=== PATIENT | female | born 1980 | race Caucasian/White ===

== ENCOUNTER 2022-09-11 12:28 | Emergency (ER) | payer OTHER, SELFPAY ==
[2022-09-11] VITALS (36 sets, daily range): BP systolic 104–136; BP diastolic 70–86; PULSE 103–113; RESP 15–38; TEMP 35.7–37; O2SAT 80–100
--- NOTE | ~2022-09-11 | CT_ITS ---
EXAMINATION: CT brain wo con DATE: 09/11/2022 14:55 INDICATION: unresponsive, high blood sugar today . TECHNIQUE: Computed tomography (CT) of the head was performed without intravenous contrast. The mA wa s adjusted according to patient size. Iterative reconstruction technique was employed. The dose-lengt h product was 605.33 mGy-cm. COMPARISON: None. FINDINGS: Mild motion and beam hardening artifact. No acute intracranial hemorrhage or extra-axial fluid collection. No hydrocephalus, mass, or herniation. No acute ischemic infarct. Unremarkable dural venous sinus attenuation. No acute osseous abnormality. Multiple subcutaneous calcified nodules in the scalp. Left superior fro ntal scalp contusion with focal debris versus partially calcified nodule. Likely right occipital scal p contusion. The aerated spaces are clear. IMPRESSION: No acute intracranial process. Reviewed, dictated and finalized at location K.
--- NOTE | ~2022-09-11 | CT_ITS ---
EXAMINATION: CT cervical spine wo con DATE: 09/11/2022 14:55 INDICATION: fall, unresponsive today TECHNIQUE: Computed tomography (CT) of the cervical spine was performed without intravenous contrast. Automated exposure control and iterative reconstruction technique were employed. The dose-length pro duct was 460.32 mGy-cm. COMPARISON: None. FINDINGS: Vertebral Body Alignment: Intact. Mild straightening, which can occur with positioning or muscle spas m. Craniocervical and atlantoaxial alignment: Mild degenerative change. Alignment intact. Osseous structures/fracture: No evidence of a lytic or blastic process in the visualized spine. No e vidence of acute fracture. Unfused posterior C1 arch. Cervical soft tissues: The paraspinal soft tissues planes are maintained. Degenerative changes: Moderate degenerative disc disease at C5-6. No severe central canal or neural f oraminal narrowing. IMPRESSION: No acute fracture or traumatic malalignment in the cervical spine. Reviewed, dictated and finalized at location K.
--- NOTE | ~2022-09-11 | XR_ITS ---
EXAMINATION: XR chest 1V portable Exam Date/Time: 09/11/2022 14:45 CDT HISTORY: SOB, BLOOD SUGAR OVER 700 TODAY, UNRESPONSIVE Comparison: None. RESULT: Lines, tubes, and devices: None. Lungs and pleura: Low volumes with crowding. Streaky bibasilar atelectasis. Cardiomediastinal silhouette: Stable. Other: No acute osseous or upper abdominal finding. IMPRESSION: No acute cardiopulmonary process. Reviewed, dictated and finalized at location K.
--- NOTE | 2022-09-11 12:37 | ECG_ITS ---
Measurements Intervals [place] Rate: 113 P: 45 MD: 147 QRS: 28 QRSD: 104 T: 42 QT: 336 QTc: 461 Interpretive Statements SINUS TACHYCARDIA BASELINE ARTIFACT- I, II, III, AVR, AVL, AVF, V1, V4-V6 ABNORMAL ECG NO PREVIOUS ECG AVAILABLE FOR COMPARISON Electronically Signed On 09-11-2022 17:53:47 CDT by Seamus Crawley D.O.
--- NOTE | 2022-09-11 12:40 | ED.AMS ---
HPI - Altered Mental Status General Chief Complaint: Altered Mental Status Stated Complaint: ambulance Source: patient Mode of arrival: ambulatory Limitations: no limitations History of Present Illness HPI narrative: 42-year-old female with a history of obesity, gestational diabetes was brought into the ER by EMS for -- unresponsiveness since 11:00 a.m. -- Nausea with multiple episodes of vomiting since yesterday. -- High blood sugars complaint: altered mental status and decreased responsiveness Onset (ago): hour(s) ( noted unresponsive 2 hours ago) Timing confirmed by: spouse Severity: severe Related Data Allergies Allergy/AdvReac Type Severity Reaction Status Date / Time Penicillins Allergy Unknown Verified 04/29/16 14:48 Review of Systems Review of Systems: All systems reviewed & are unremarkable except as noted in HPI and below ROS unobtainable: Yes unobtainable due to mental status PMFSH Family History Family History Father Diabetes mellitus Social History Social History Smoking status: Never smoker Alcohol intake: current Exam Const: General: ill appearing Nutritional Appearance: obese Other: patient is unresponsive to verbal commands. She does respond to painful stimuli. She occasionally answers questions. HENMT: Head: normal to inspection Ears: external ears normal Face/Nose/Sinus: Normal external nose present Face and sinus: normal facial exam Mouth: Yes dry mucous membranes Throat: posterior oropharynx normal Eyes: Conjunctivae: conjunctivae normal Pupils: Equal, round and reactive pupils present EOM: EOMs intact bilaterally Neck: Neck: normal visual inspection, no lymphadenopathy and no meningeal signs Chest: Chest palpation & inspection: normal inspection of the chest Resp: Effort & Inspection: labored Auscultation: clear to auscultation bilaterally Cardio: Rate: tachycardic Rhythm: regular rhythm GI: GI Palp: Yes Soft to palpation Auscultation: normal bowel sounds Other: No tenderness/ rigidity / rebound : General: Yes no CVA tenderness Back/Spine/Pelvis: Back: no CVA tenderness Skin: General skin exam: normal color Rashes: no rashes Wounds: no wounds Neuro: General: patient oriented x3, moves all extremities, no meningeal signs, no focal motor deficits and CN's II-XI intact bilaterally Cranial nerves: Yes Nystagmus not present Speech: normal speech Extrem: General: normal to inspection and no clubbing, cyanosis or edema Psych: Other: patient is unresponsive to verbal commands. She response to painful stimuli. Course Course Emergency Course: unresponsiveness diabetic ketoacidosis Leukocytosis 3:00 p.m. patient has received 3 L of IV fluids. patient is on IV insulin drip. She received IV bicarbonate Mental status has improved. The patient is arousable and follows verbal commands. 4:00 p.m. patient is hemodynamically stable. She is alert and oriented. Blood sugars are down to 447. WBCs noted to be 27.4. Lactate is noted to be 0.7. The patient has been cultured. negative UA Vital Signs Vital signs: Vital Signs Temperature 35.7 C L 09/11/22 12:28 Pulse Rate 113 H 09/11/22 12:28 Respiratory Rate 35 H 09/11/22 12:28 Blood Pressure 125/76 09/11/22 12:28 Pulse Oximetry 100 09/11/22 12:28 Oxygen Delivery Nasal Cannula 09/11/22 12:28 Oxygen Flow Rate 2 09/11/22 12:28 Temperature 37.0 C 09/11/22 13:15 Pulse Rate 104 H 09/11/22 15:16 Respiratory Rate 30 H 09/11/22 15:16 Blood Pressure 132/77 09/11/22 15:16 Pulse Oximetry 100 09/11/22 15:16 Oxygen Delivery Nasal Cannula 09/11/22 12:28 Oxygen Flow Rate 2 09/11/22 12:28 MDM - Altered Mental Status MDM Narrative Medical decision making narrative: Diabetic ketoacidosis acute renal failure unresponsive
[2022-09-11] MEDS: SODIUM CHLORIDE 0.9% IV 1,000 ML 999 ML IV CONT ×4 (12:44→13:54)
[2022-09-11] MEDS: INSULIN HUMAN REGULAR (*BKC) 1,000 UNITS/10 ML VIAL 10 UNITS IV PUSH ×3 (12:45→17:06)
--- NOTE | 2022-09-11 12:48 | PC.NURSE ---
FINGER STICK GREATER THAN 500, DR VELA NOTIFIED.
[2022-09-11 13:02] LABS: Hematocrit 33.4 % (35.0-49.0); Hemoglobin 10.3 g/dL (12.0-15.0); Immature Platelet Fraction Pct 0.7 % (1.0-7.0); Mean Corpuscular HGB Conc 30.8 g/dL (32.0-36.0); Mean Corpuscular Hemoglobin 28.2 pg (27.0-31.0); Mean Corpuscular Volume 91.5 fL (78.0-102.0); Mean Platelet Volume 9.5 fl (9.2-11.8); Platelet Count Result 683 K/mm3 (150-420); Red Blood Count 3.65 M/mm3 (4.20-5.40); Red Cell Distribution Width 13.2 % (11.6-14.4)
[2022-09-11 13:03] LABS: Base Excess ABG -28.2 mmol/L (0-2); HCO3 ABG 2.5 mmol/L (23-29); Oxygen Content ABG 15.9 %vol (16.0-22.0); Oxygen Saturation ABG 97.9 % (95-97); Oxyhemoglobin 97.2 % (94-100); PO2 ABG 149.8 mmHg (80-90); Total Hemoglobin 11.4 g/dL (12.0-18.0)
[2022-09-11 13:08] LABS: pH ABG 6.93 (7.35-7.45)
[2022-09-11 13:09] LABS: Device NASAL CANNULA; Modified Allen's Test Pass; Site Drawn LEFT RADIAL
[2022-09-11 13:10] LABS: White Blood Count 27.4 K/mm3 (4.8-10.8)
[2022-09-11 13:16] LABS: Partial Thromboplastin Time 30.8 SEC (23.90-30.70); Prothrombin Time 10.9 Seconds (9.50-12.10); SPREG INTERNAL CONTROL Positive; Serum Qual hCG Negative
[2022-09-11 13:19] LABS: Lactic Acid Reflex 0.7 mmol/L (0.4-2.0)
[2022-09-11 13:25] LABS: Alanine Aminotransferase 11 U/L (14-59); Albumin Level 1.6 g/dL (3.4-5.0); Alkaline Phosphatase 135 U/L (46-116); Aspartate Amino Transferase < 10 U/L (15-37); Bilirubin,Total 0.4 mg/dL (0.00-1.00); Blood Urea Nitrogen 37 mg/dL (7-18); Calcium 9.8 mg/dL (8.5-10.1); Chloride 101 mmol/L (98-108); Creatine Kinase 16 U/L (26-192); Estimated CRCL calculation 40 ml/min; Estimated Glomerular Filt Rate 31; NT Pro B Type Natriuretic Pept 786 pg/mL (0-125); Potassium 5.7 mmol/L (3.5-5.1); Sodium 136 mmol/L (136-145); Total Protein 7.2 g/dL (6.4-8.2)
[2022-09-11 13:27] LABS: Carbon Dioxide < 5 mmol/L (21-32)
[2022-09-11 13:34] LABS: Band Neutrophils Percent 6 % (0-6); Basophils Percent Manual 0 % (0-1); Eosinophils Percent Manual 0 % (1-6); Lymphocytes Absolute Manual 3.83 K/mm3 (1.1-4.5); Lymphocytes Percent Manual 14 % (18-44); Metamyelocytes Percent 1 %; Monocytes Percent Manual 0 % (3-9); Myelocytes Percent 1 %; Neutrophils Absolute Manual 23.01 K/mm3 (1.7-7.2); Neutrophils Percent Manual 78 % (46-73); Total Cells Counted 100
[2022-09-11 13:35] LABS: Platelet Estimate Increased (Adequate)
[2022-09-11 13:36] LABS: Osmolality Calculated 329 mOsm/kg (285-295)
[2022-09-11 13:37] LABS: Glucose 796 mg/dL (70-99)
[2022-09-11 13:38] LABS: Lipase 167 U/L (16-77); Thyroid Stimulating Hormone 0.62 uIU/mL (0.36-3.74)
[2022-09-11 13:39] LABS: Influenza A QL RT-PCR Negative (Negative); Influenza B QL RT-PCR Negative (Negative); SARS-CoV-2 RNA PCR Negative (Negative); Troponin I < 4.0 ng/L (0.00-60.4)
[2022-09-11 13:41] LABS: Appearance Urine Clear (Clear); Bilirubin Urine 1+ (Negative); Blood Urine 2+ (Negative); Color Urine Light Yellow (Yellow); Glucose Urine UA 3+ (Negative); Ketones Urine 3+ (Negative); Leukocyte Esterase Ur Negative LEU/UL (Negative); Nitrate Urine Negative (Negative); Protein Urine 3+ (Negative); Specific Grav Ur >= 1.030 (1.010-1.020); Urobilinogen Urine 0.2 mg/dL (0.2-1.0)
[2022-09-11 13:44] LABS: RSV RNA, RT-PCR Negative (Negative)
[2022-09-11 13:47] LABS: Add Urine Microscopic? YES; Bacteria Urine 1+ /hpf; Squamous Epithelial Cell Urine Rare /hpf (Few); WBC Urine None seen /hpf (0-3)
[2022-09-11] MEDS: SODIUM CHLORIDE 0.9% IV 1,000 ML 150 ML IV CONT (13:58)
[2022-09-11 14:04] LABS: Magnesium 2.4 mg/dL (1.8-2.4); Phosphorus 7.4 mg/dL (2.6-4.7)
[2022-09-11 14:06] LABS: Hemoglobin A1C 13.9 % (<5.7)
[2022-09-11] MEDS: INSULIN REG 100 UNITS/100 ML 100 UNITS/100 ML BAG 14.7 UNITS IV CONT (14:23)
[2022-09-11 15:07] LABS: Glucose Point of Care > 450 mg/dl (65-105)
[2022-09-11] MEDS: SODIUM BICARBONATE 8.4% 50 MEQ/50 ML SYRINGE IV PUSH (15:28)
[2022-09-11 16:05] LABS: Glucose Point of Care 447 mg/dl (65-105)
[2022-09-11 16:28] LABS: Blood Urea Nitrogen 36 mg/dL (7-18); Calcium 9.6 mg/dL (8.5-10.1); Chloride 111 mmol/L (98-108); Estimated CRCL calculation 46 ml/min; Estimated Glomerular Filt Rate 37; Potassium 3.8 mmol/L (3.5-5.1); Sodium 143 mmol/L (136-145)
[2022-09-11 16:29] LABS: Carbon Dioxide < 5 mmol/L (21-32)
[2022-09-11 16:30] LABS: Glucose 516 mg/dL (70-99); Osmolality Calculated 327 mOsm/kg (285-295)
--- NOTE | 2022-09-11 18:49 | PM.IMHP ---
H&P: HPI History of Present Illness Date/Time: 09/11/22 18:30 [facility] Family History Family History Father Diabetes mellitus Social History Social History Smoking status: Never smoker Alcohol intake: current Meds Home Medications and Allergies Allergies Allergy/AdvReac Type Severity Reaction Status Date / Time Penicillins Allergy Unknown Verified 04/29/16 14:48 Vital Signs Vital Signs - 24 hr 09/11/22 12:28 09/11/22 12:28 09/11/22 13:01 Temperature 96.2 F L Pulse Rate 113 H 113 H 111 H Respiratory Rate 35 H 38 H Blood Pressure 125/76 130/74 Pulse Oximetry 100 Oxygen Delivery Nasal Cannula Oxygen Flow Rate 2 09/11/22 13:02 09/11/22 13:15 09/11/22 13:16 Temperature 98.6 F Pulse Rate 111 H 111 H 111 H Respiratory Rate 30 H 37 H 37 H Blood Pressure 122/71 Pulse Oximetry Oxygen Delivery Oxygen Flow Rate 09/11/22 13:30 09/11/22 13:31 09/11/22 13:45 Temperature Pulse Rate 110 H 110 H 110 H Respiratory Rate 28 H 31 H 15 Blood Pressure 133/70 Pulse Oximetry Oxygen Delivery Oxygen Flow Rate 09/11/22 13:46 09/11/22 14:00 09/11/22 14:01 Temperature Pulse Rate 111 H 108 H 108 H Respiratory Rate 27 H 30 H 32 H Blood Pressure 134/79 133/78 Pulse Oximetry Oxygen Delivery Oxygen Flow Rate 09/11/22 14:51 09/11/22 14:54 09/11/22 14:57 Temperature Pulse Rate 106 H 105 H 106 H Respiratory Rate 18 33 H 18 Blood Pressure 121/77 Pulse Oximetry 100 100 Oxygen Delivery Oxygen Flow Rate 09/11/22 15:00 09/11/22 15:01 09/11/22 15:15 Temperature Pulse Rate 104 H 105 H 103 H Respiratory Rate 27 H 33 H 27 H Blood Pressure 126/82 Pulse Oximetry 100 100 100 Oxygen Delivery Oxygen Flow Rate 09/11/22 15:16 09/11/22 16:45 09/11/22 15:17 Temperature 98.3 F Pulse Rate 104 H 108 H 103 H Respiratory Rate 30 H 26 H 21 H Blood Pressure 132/77 136/77 Pulse Oximetry 100 100 100 Oxygen Delivery Nasal Cannula Nasal Cannula Oxygen Flow Rate 2 2 09/11/22 15:30 09/11/22 15:31 09/11/22 15:45 Temperature Pulse Rate 104 H 104 H 108 H Respiratory Rate 25 H 26 H 21 H Blood Pressure 135/76 Pulse Oximetry 100 100 100 Oxygen Delivery Oxygen Flow Rate 09/11/22 15:46 09/11/22 16:00 09/11/22 16:01 Temperature Pulse Rate 108 H 104 H 105 H Respiratory Rate 27 H 25 H 27 H Blood Pressure 127/79 104/86 Pulse Oximetry 100 87 L 100 Oxygen Delivery Oxygen Flow Rate 09/11/22 16:15 09/11/22 16:17 09/11/22 16:30 Temperature 97.3 F L Pulse Rate 107 H 107 H 108 H Respiratory Rate 34 H 26 H 33 H Blood Pressure 110/75 Pulse Oximetry 100 100 Oxygen Delivery Oxygen Flow Rate 09/11/22 16:45 09/11/22 16:46 09/11/22 16:47 Temperature Pulse Rate 107 H 108 H 108 H Respiratory Rate 30 H 26 H 29 H Blood Pressure 136/77 Pulse Oximetry 100 100 100 Oxygen Delivery Oxygen Flow Rate 09/11/22 17:00 09/11/22 17:01 09/11/22 17:02 Temperature Pulse Rate 111 H 111 H 110 H Respiratory Rate 31 H 19 32 H Blood Pressure 128/70 Pulse Oximetry 100 100 100 Oxygen Delivery Nasal Cannula Oxygen Flow Rate 2 09/11/22 17:15 09/11/22 17:16 Temperature Pulse Rate 109 H 108 H Respiratory Rate 33 H 22 H Blood Pressure 119/72 Pulse Oximetry 80 L Oxygen Delivery Oxygen Flow Rate H&P: Results Labs Labs: Short CBC 09/11/22 Range/Units 12:56 WBC 27.4 H* (4.8-10.8) K/mm3 Hgb 10.3 L (12.0-15.0) g/dL Hct 33.4 L (35.0-49.0) % Plt Count 683 H (150-420) K/mm3 BMP 09/11/22 09/11/22 12:56 16:14 Sodium 136 143 Potassium 5.7 H 3.8 Chloride 101 111 H Carbon Dioxide < 5 L < 5 L BUN 37 H 36 H Creatinine 1.80 H 1.56 H Glucose 796 H* 516 H* Calcium 9.8 9.6 Cardiac Enzymes 09/11/22 Range/Units 12:56 Total Creati
--- NOTE | 2022-09-18 13:16 | PC.NURSE ---
final blood culture results: no growth after 5 days, no further treatment needed.
== END 2022-09-11 17:33 | disposition short-term general hospital (02) ==
PROVIDERS: Emergency Provider Internal Medicine Critical Care Medicine
DX: E11.11 Type 2 diabetes mellitus with ketoacidosis with coma (principal); N17.9 Acute kidney failure, unspecified; E87.3 Alkalosis; Z20.822 Contact with and (suspected) exposure to COVID-19
CPT/HCPCS: 36415; 36600; 70450; 71045; 72125; 80048; 80053; 81001; 82550; 82805; 82948; 83036; 83605; 83690; 83735; 83880; 84100; 84443; 84484; 84703; 85025; 85055; 85610; 85730; 87040; 87637; 93005; 96361; 96365; 96366; 96375; 99285; J1815; J7030

== ENCOUNTER 2022-09-11 18:18 | Inpatient (IN) | payer OTHER, SELFPAY ==
[2022-09-11] VITALS (12 sets, daily range): BP systolic 129–145; BP diastolic 79–92; PULSE 118–134; RESP 27–36; TEMP 32.2–36.7; O2SAT 96–99; BMI 35.0
--- NOTE | ~2022-09-11 | US_ITS ---
EXAMINATION: US renal BI DATE: 09/12/2022 08:20 INDICATION: Acute kidney injury TECHNIQUE: Multiple grayscale and Doppler ultrasound images of the kidneys were obtained. COMPARISON: None. FINDINGS: The right kidney measures 12.1 x 5.2 x 5.5 cm. The left kidney measures 11.6 x 4.9 x 6.4 cm . The kidneys demonstrate normal parenchymal echogenicity. There is no hydronephrosis. The bladder is decompressed by Cortez catheter. IMPRESSION: 1. Normal kidneys without hydronephrosis. Reviewed, dictated and finalized at location A.
--- NOTE | ~2022-09-11 | CT_ITS ---
CT OF left foot EXAMINATION: CT foot LT wo con DATE: 09/11/2022 20:21 INDICATION: Left diabetic foot wound TECHNIQUE: Computed tomography (CT) of the left foot was performed without intravenous contrast. Auto mated exposure control and iterative reconstruction technique were employed. The dose-length product was 521.74 mGy-cm. COMPARISON: Left foot x-ray, same date. FINDINGS: Skin defect at the ball of the foot, superficial to the first MTP joint space. Extensive scott bcutaneous gas in the soft tissues of the forefoot, most pronounced adjacent to the first through thi rd metatarsals and toes. Diffuse subcutaneous edema involving the entire foot, but most pronounced in the forefoot. Focal osseous erosion along the dorsal aspect of the proximal first phalanx. Gas withi n the marrow space of the first proximal phalanx. No definite periosteal changes. Joint spaces are sy mmetric. No fracture or dislocation. Scattered mild degenerative change. Mild plantar and Achilles en thesopathy. IMPRESSION: CT findings concerning for osteomyelitis involving the first proximal phalanx. Extensive forefoot cellulitis and subcutaneous gas. Consider MR of the foot without and with contrast for furth er evaluation. Reviewed, dictated and finalized at location K. IMPRESSION: CT findings concerning for osteomyelitis involving the first proxim al phalanx. Extensive forefoot cellulitis and subcutaneous gas. Consider MR of the foot without and with contrast for further evaluation.
--- NOTE | ~2022-09-11 | XR_ITS ---
EXAMINATION: XR chest 1V portable INDICATION: Shortness of breath TECHNIQUE: Portable AP chest at 0936 hours COMPARISON: 09/11/2022 FINDINGS: There is mild atelectasis of the left lung base. No pleural effusion or pneumothorax. The c ardiomediastinal silhouette is normal. IMPRESSION: 1. Mild atelectasis of the left lung base. Reviewed, dictated and finalized at location A.
--- NOTE | ~2022-09-11 | XR_ITS ---
EXAMINATION: XR chest PICC line INDICATION: PICC insertion TECHNIQUE: Portable AP chest at 1016 hours COMPARISON: 0936 hours FINDINGS: A right upper extremity PICC has been inserted which ends with its tip in the midsuperior v kaushal cava. Left basilar airspace opacities are unchanged. No pleural effusion or pneumothorax. The car diomediastinal silhouette is stable. IMPRESSION: 1. Right upper extremity PICC inserted ending with its tip in the midsuperior vena cava. 2. Stable left basilar airspace opacity, consistent with atelectasis versus pneumonia. Reviewed, dictated and finalized at location A. IMPRESSION: 1. Right upper extremity PICC inserted ending with its tip in the midsuperior v kaushal cava. 2. Stable left basilar airspace opacity, consistent with atelectasis versus pne umonia.
--- NOTE | ~2022-09-11 | XR_ITS ---
EXAM: XR foot LT min 3V DATE: 09/11/2022 19:06 HISTORY: diabetic foot wound . COMPARISON: None available. FINDINGS: Normal mineralization. No fracture or dislocation. No lytic or blastic lesion. Joint space s are maintained. No erosion or periosteal change. Vascular calcifications. Soft tissue defect over t he ball of foot. Extensive simultaneous gas and soft tissue swelling of the forefoot. IMPRESSION: Severe forefoot cellulitis. No radiographic evidence of osteomyelitis. Reviewed, dictated and finalized at location K. IMPRESSION: Severe forefoot cellulitis. No radiographic evidence of osteomyelit is.
--- NOTE | ~2022-09-11 | US_ITS ---
EXAMINATION:US venous doppler LE LT INDICATION:Left leg swelling TECHNIQUE: Multiple grayscale, color flow and Doppler images of the left lower extremity deep venous systems were obtained and reviewed. COMPARISON:No prior studies for comparison. FINDINGS: The common femoral, superficial femoral and popliteal veins demonstrate normal respiratory variation, augmentation and compressibility. Color flow is also seen within the posterior tibial, pe roneal, greater saphenous and profunda veins. There is left inguinal lymphadenopathy, likely reactive . IMPRESSION: 1: No lower extremity deep venous thrombosis. Reviewed, dictated and finalized at location L.
--- NOTE | 2022-09-11 18:24 | ADMGEN ---
This patient, Sydni Padron, was admitted to Intensive Care Unit-6 at 1810 via [facility]. Patient/family oriented to hospital policies and general routines including ID bracelet, bed and alarms, visiting hours, pain management, procedures, bathroom and other care routines, personal items, smoking policy, room service/diet, and visiting hours. Information on how to activate the Rapid Response Team has been discussed. Patient/Family are encouraged to report perceived risks to care and to ask questions if they do not understand what they are told or what they should do.
[2022-09-11 18:45] LABS: Alveolar/Arterial O2 Gradient 37.3 mmHg; Base Excess ABG -23.1 mEq/l (+/-2.0); Carboxyhemoglobin 0.2 % THb (0-2.0); Fractional Inspired Oxygen 28 %; HCO3 ABG 4.8 mEq/l (22.0-26.0); Methemoglobin ABG 0.1 %THb (0-1.5); Oxygen Content ABG 16.3 %vol (16.0-22.0); Oxyhemoglobin 97.4 % THb (90.0-100.0); PO2 ABG 143.3 mmHg (80.0-100.0); PO2 FiO2 Ratio Arterial Blood 5.12 %; Reduced Hemoglobin 2.3 %THb (0-5.0); Total Hemoglobin 11.7 g/dL (12.0-18.0)
[2022-09-11 18:48] LABS: Device NASAL CANNULA; Modified Allen's Test Pass; PCO2 ABG 16.1 mmHg (35.0-45.0); Site Drawn LEFT RADIAL
--- NOTE | 2022-09-11 18:56 | PM.IMHP ---
H&P: HPI History of Present Illness Date/Time: 09/11/22 18:30 Chief Complaint: Diabetic ketoacidosis. Narrative: This is a 42-year-old female with history of gestational diabetes who is being directly admitted to the ICU from the emergency department at the [facility] for further treatment after she was found to be in diabetic ketoacidosis. She is quite ill and is a fair historian and as such some of the following history is supplemented via a review of her electronic medical records as well as discussions with her . She has not been feeling well for several weeks with progressive, generalized weakness and significant thirst. Yesterday she started vomiting and she reports numerous episodes of emesis, too numerous to count. Her found her unresponsive this morning at 11:00 and called 911. On arrival to the ER she was unresponsive to verbal commands but withdrew to noxious stimuli. Blood pressure was stable and she was tachycardic and tachypneic. Labs were significant for WBC count of 27.4, hemoglobin 10.3 sodium 136, potassium 5.7, chloride 101, carbon dioxide < 5, BUN 37, creatinine 1.80, glucose 796, hemoglobin A1c 13.9, lactic acid 0.7. Urine was concentrated and was positive for 3+ protein, 3+ glucose, and 3+ ketones. She tested negative for influenza, RSV, and COVID. ABG showed a pH of 6.93, pCO2 12.0, bicarb 2.5. Head and cervical spine CT showed no acute findings. In the ED she received a total of 3 L IV fluid, an amp of sodium bicarbonate, and she was started on insulin drip. Her mental status improved and she was arousable and following commands prior to transfer. At the time of my evaluation she is alert and oriented. She complains of severe thirst and shortness of breath. Blood pressures are stable but she remains tachycardic and tachypneic. On exam she has wounds on her left foot and swelling and redness the foot. Wounds have been there for quite some time and she has never had them evaluated before. She was unaware of any discharge and she has no pain in the foot. She has not had a fever to her knowledge but she complains of chills. Her temperature on arrival to the ICU was 90.0. She currently denies headache, neck ache, sinus congestion, sore throat, chest pain, pleuritic pain, cough, abdominal pain, epigastric pain, dysuria, and diarrhea. Review of Systems Review of Systems: Twelve systems were reviewed and are negative except for as per HPI. 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 Code status: Full code. Smoking status: Never smoker Alcohol intake: current Additional living arrangements comments: Lives with spouse and children. Meds Home Medications and Allergies Allergies Allergy/AdvReac Type Severity Reaction Status Date / Time Penicillins Allergy Unknown Verified 04/29/16 14:48 Vital Signs Vital Signs - 24 hr 09/11/22 18:29 Temperature 90.0 F L Pulse Rate 118 H Respiratory Rate 36 H Blood Pressure 129/79 Pulse Oximetry 96 Exam Narrative: General: Ill-appearing female in the semi-Martinez position in bed. Weight: 90.4 kg. BMI: 35.0. HEENT: Normocephalic, atraumatic. PERRL, EOMI. Sclera anicteric. Mucous membranes are extremely dry. Lips are chapped. Neck: Supple. No nuchal rigidity. No lymphadenopathy. Respiratory: Tachypneic with conversational dyspnea. She is speaking in 3 to 4 word s
[2022-09-11 18:58] LABS: Basophils Absolute Auto 0.2 K/mm3 (0.0-0.1); Basophils Percent Auto 0.5 % (0.2-1.2); Hematocrit 35.4 % (37.0-47.0); Hemoglobin 11.1 g/dL (12.0-15.0); Immature Granulocyte Absolute 1.35 K/mm3 (0.00-0.031); Immature Granulocyte Percent A 4.2 % (0-0.5); Lymphocytes Absolute Auto 2.29 K/mm3 (0.9-3.2); Lymphocytes Percent Auto 7.2 % (18.3-44.2); Mean Corpuscular HGB Conc 31.4 g/dl (32-36); Mean Corpuscular Hemoglobin 27.9 pg (26-34); Mean Corpuscular Volume 88.9 fl (80-100); Mean Platelet Volume 9.3 fl (7.4-10.4); Monocytes Absolute Auto 4.1 K/mm3 (0.1-0.6); Monocytes Percent Auto 12.7 % (2.6-8.5); Neutrophils Absolute Auto 24.1 K/mm3 (1.3-6.7); Neutrophils Percent Auto 75.4 % (45.5-73.1); Nucleated Red Blood Cells Perc 0.1 % (0.0-0.2); Platelet Count Result 597 k/mm3 (150-375); Red Blood Count 3.98 M/mm3 (4.2-5.4); Red Cell Distribution Width 13.2 % (11.5-14.5); White Blood Count 31.9 K/mm3 (4.5-10.0)
[2022-09-11] MEDS: INSULIN HUMAN REGULAR (*BKC) 100 UNITS in SODIUM CHLORIDE 0.9% IV 99 ML 6.7 UNITS IV CONT (19:00)
[2022-09-11] MEDS: SODIUM CHLORIDE 0.9% IV 1,000 ML 150 ML IV CONT (19:02)
[2022-09-11 19:03] LABS: Lactic Acid Reflex 1.1 mmol/L (0.7-2.0)
[2022-09-11 19:05] LABS: Alanine Aminotransferase 10 U/L (6-35); Albumin Level 3.4 g/dL (3.5-5.1); Alkaline Phosphatase 141 U/L (38-126); Aspartate Amino Transferase 13 U/L (14-36); Bilirubin,Total 0.3 mg/dL (0.2-1.3); Blood Urea Nitrogen 32 mg/dL (7-17); Calcium 9.6 mg/dL (8.4-10.2); Carbon Dioxide < 5 mmol/L (22-30); Chloride 118 mmol/L (98-107); Estimated Glomerular Filt Rate 33; Glucose 426 mg/dL (65-110); INR 1.2; Magnesium 2.3 mg/dL (1.6-2.3); Phosphorus 2.4 mg/dL (2.5-4.5); Prothrombin Time 16.3 Seconds (11.1-14.7); Sodium 146 mmol/L (137-145)
[2022-09-11 19:06] LABS: Partial Thromboplastin Time 29.9 SECONDS (22.3-36.8)
[2022-09-11] MEDS: SODIUM BICARBONATE 8.4% 50 MEQ/50 ML SYRINGE IV PUSH ×2 (19:17→20:44)
[2022-09-11 19:21] LABS: Hemoglobin A1C 13.2 % (<5.7)
[2022-09-11 19:33] LABS: Procalcitonin 0.5 ng/mL
[2022-09-11 19:33] LABS: CRP 42.2 mg/dL (<1.0)
[2022-09-11 19:41] LABS: Appearance Urine Cloudy (Clear); Bacteria Urine None Seen /hpf; Bilirubin Urine Negative (Negative); Blood Urine 3+ (Negative); Color Urine Yellow (Yellow); Glucose Urine UA 3+ mg/dL (Negative); Ketones Urine 4+ mg/dL (Negative); Leukocyte Esterase Ur Negative LEU/UL (NEGATIVE); Need Manual Microscopic Reviewed; Nitrate Urine Negative (Negative); Non Pathogenic Casts >20; Protein Urine 2+ mg/dL (Negative); Specific Grav Ur 1.021 (1.001-1.035); Squamous Epithelial Cell Urine Occasional /hpf (Few); Urobilinogen Urine 0.2 mg/dL (<2.0); WBC Urine 0-5 /hpf (0-3)
[2022-09-11 19:48] LABS: Add Urine Microscopic? YES
[2022-09-11 20:34] LABS: Glucose Point of Care 379 mg/dl (65-105)
[2022-09-11 20:34] LABS: Glucose Point of Care 397 mg/dl (65-105)
[2022-09-11] MEDS: MEROPENEM 1 GM in SODIUM CHLORIDE 0.9% IV 100 ML 200 ML IVPB (20:40)
[2022-09-11] MEDS: CLINDAMYCIN 900 MG/D5W 50 ML 900 MG/50 ML PIGGYBACK 50 MG IVPB (21:12)
[2022-09-11 21:37] LABS: Glucose Point of Care 334 mg/dl (65-105)
[2022-09-11 22:14] LABS: Beta-Hydroxybutyrate/Acetoacetate 6.96 mmol/L (0.02-0.27)
--- NOTE | 2022-09-11 22:40 | PC.NURSE ---
Called pharmacy at [facility] [address] [facility] and patient has not filled any prescription since 2021; patient verified she has not filled any prescriptions in 2022 other than control pills she gets online. Patient can not remember name of control pills, will call and ask to bring in.
[2022-09-11 22:43] LABS: Glucose Point of Care 311 mg/dl (65-105)
[2022-09-11 23:39] LABS: Glucose Point of Care 286 mg/dl (65-105)
[2022-09-12] VITALS (13 sets, daily range): BP systolic 122–158; BP diastolic 66–94; PULSE 97–137; RESP 18–36; TEMP 37.2–38.3; O2SAT 94–100
[2022-09-12] MEDS: METOPROLOL TARTRATE INJ 5 MG/5 ML VIAL IV PUSH (00:25)
[2022-09-12 00:37] LABS: Glucose Point of Care 259 mg/dl (65-105)
[2022-09-12] MEDS: KCL 20 MEQ/D5/0.45% SOD CHL 1,000 ML 150 ML IV CONT ×3 (01:39→13:45)
[2022-09-12 01:43] LABS: Glucose Point of Care 197 mg/dl (65-105)
[2022-09-12] MEDS: INSULIN HUMAN REGULAR (*BKC) 100 UNITS in SODIUM CHLORIDE 0.9% IV 99 ML 12.3 UNITS IV CONT (02:05)
[2022-09-12 02:45] LABS: Glucose Point of Care 158 mg/dl (65-105)
[2022-09-12 03:03] LABS: Basophils Percent Auto 0.2 % (0.2-1.2); Hematocrit 29.3 % (37.0-47.0); Hemoglobin 9.8 g/dL (12.0-15.0); Immature Granulocyte Absolute 0.59 K/mm3 (0.00-0.031); Lymphocytes Absolute Auto 0.86 K/mm3 (0.9-3.2); Lymphocytes Percent Auto 4.3 % (18.3-44.2); Mean Corpuscular HGB Conc 33.4 g/dl (32-36); Mean Corpuscular Hemoglobin 27.6 pg (26-34); Mean Corpuscular Volume 82.5 fl (80-100); Mean Platelet Volume 8.8 fl (7.4-10.4); Monocytes Absolute Auto 2.4 K/mm3 (0.1-0.6); Monocytes Percent Auto 11.8 % (2.6-8.5); Neutrophils Absolute Auto 16.1 K/mm3 (1.3-6.7); Neutrophils Percent Auto 80.7 % (45.5-73.1); Nucleated Red Blood Cells Perc 0.2 % (0.0-0.2); Platelet Count Result 490 k/mm3 (150-375); Red Blood Count 3.55 M/mm3 (4.2-5.4); Red Cell Distribution Width 13.2 % (11.5-14.5); White Blood Count 19.9 K/mm3 (4.5-10.0)
[2022-09-12 03:13] LABS: Alanine Aminotransferase 11 U/L (6-35); Albumin Level 3.1 g/dL (3.5-5.1); Alkaline Phosphatase 114 U/L (38-126); Anion Gap 12 mmol/L (8-16); Aspartate Amino Transferase 16 U/L (14-36); Bilirubin,Total 0.3 mg/dL (0.2-1.3); Blood Urea Nitrogen 39 mg/dL (7-17); Calcium 9.1 mg/dL (8.4-10.2); Carbon Dioxide 15 mmol/L (22-30); Chloride 121 mmol/L (98-107); Estimated CRCL calculation 86 ml/min; Estimated Glomerular Filt Rate > 60; Glucose 159 mg/dL (65-110); Magnesium 1.8 mg/dL (1.6-2.3); Potassium 3.4 mmol/L (3.4-5.0); Sodium 148 mmol/L (137-145)
[2022-09-12 03:32] LABS: Phosphorus < 1.0 mg/dL (2.5-4.5)
[2022-09-12 03:37] LABS: Glucose Point of Care 154 mg/dl (65-105)
[2022-09-12 04:37] LABS: Glucose Point of Care 136 mg/dl (65-105)
[2022-09-12] MEDS: ONDANSETRON INJ 4 MG/2 ML VIAL IV PUSH (04:40)
[2022-09-12 06:14] LABS: Glucose Point of Care 143 mg/dl (65-105)
[2022-09-12] MEDS: CLINDAMYCIN 900 MG/D5W 50 ML 900 MG/50 ML PIGGYBACK 50 MG IVPB ×3 (06:40→21:53)
[2022-09-12 07:18] LABS: Free T4 Free Thyroxine Reflex 1.83 ng/dL (0.78-2.19)
[2022-09-12 07:20] LABS: Anion Gap 12 mmol/L (8-16); Blood Urea Nitrogen 36 mg/dL (7-17); Calcium 8.9 mg/dL (8.4-10.2); Carbon Dioxide 12 mmol/L (22-30); Chloride 123 mmol/L (98-107); Estimated CRCL calculation 109 ml/min; Estimated Glomerular Filt Rate > 60; Glucose 151 mg/dL (65-110); Potassium 3.5 mmol/L (3.4-5.0); Sodium 147 mmol/L (137-145)
[2022-09-12] MEDS: LACTATED RINGERS 1,000 ML 999 ML IV CONT (08:08)
[2022-09-12] MEDS: MEROPENEM 1 GM in SODIUM CHLORIDE 0.9% IV 100 ML 200 ML IVPB ×3 (08:08→21:53)
[2022-09-12] MEDS: PANTOPRAZOLE SODIUM IV 40 MG VIAL IV PUSH (08:27)
[2022-09-12] MEDS: ENOXAPARIN 40 MG/0.4 ML SYRINGE SUB-Q (08:27)
[2022-09-12] MEDS: ACETAMINOPHEN 325 MG TABLET 650 MG PO ×2 (08:36→20:08)
--- NOTE | 2022-09-12 09:22 | WPDCNINT ---
Assessment and Plan Assessment and plan (1) Diabetic ketoacidosis: Code(s): E11.10 - Type 2 diabetes mellitus with ketoacidosis without coma Status: Acute Assessment and Plan: Patient presented to the [facility] in [facility] with nausea, vomiting for 2 days, patient has not been taking his insulin for a few months -patient was diagnosed with diabetic ketoacidosis, was given 3 L IV fluids, started on insulin infusion -likely cause is diabetic left foot with osteomyelitis and cellulitis -patient remains on insulin infusion, and remains acidotic -additional IV fluid bolus this morning patient is tachycardic -continues to have nausea -continue monitoring BMPs -will transition to long-acting insulin and sliding scale insulin along with once her acidemia and anion gap resolves (2) Diabetic infection of left foot: Code(s): E11.628 - Type 2 diabetes mellitus with other skin complications; L08.9 - Local infection of the skin and subcutaneous tissue, unspecified Status: Acute Assessment and Plan: Patient with osteomyelitis of left foot, diabetic foot ulcer, cellulitis -started meropenem, clindamycin vancomycin to cover for anaerobes and gas organisms along with Gram-positive bacteria -patient will require long-term antibiotic -PICC line will be placed -surgery has been consulted 09/11: x-ray left foot showed severe forefoot cellulitis with extensive simultaneous gas and soft tissue swelling of the forefoot 09/11: CT left foot: CT findings concerning for osteomyelitis involving the first proximal phalanx. Extensive forefoot cellulitis and subcutaneous gas. Consider MR of the foot without and with contrast for further evaluation. (3) Cellulitis of left foot: Code(s): L03.116 - Cellulitis of left lower limb Status: Acute Assessment and Plan: As above (4) Acute kidney injury: Code(s): N17.9 - Acute kidney failure, unspecified Status: Acute Assessment and Plan: Initial creatinine on admission was 1.8 likely related hypovolemia, dehydration, diabetic ketoacidosis, sepsis -adequately fluid-resuscitated -additional IV fluid bolus this morning -creatinine has normalized along with good urine output -continue to monitor renal function, electrolytes and urine output Plan DVT prophylaxis: Lovenox Stress ulcer prophylaxis: Protonix Nutrition: Ice chips only Code Status: Full code Critical Care Time Spent: 49 minutes Due to a high probability of clinically significant, life threatening deterioration, the patient required my highest level of preparedness to intervene emergently and I personally spent this critical care time directly and personally managing the patient. This critical care time included obtaining a history; examining the patient; pulse oximetry; ordering and review of studies; arranging urgent treatment with development of a management plan; evaluation of patient's response to treatment; frequent reassessment; and discussions with other providers. It was exclusive of separately billable procedures and treating other patients and teaching time. Please see Assessment and Plan section and the rest of the note for further information on patient assessment and treatment This dictation may have been done utilizing a voice recognition system. Attempts have been made to correct errors. However, there may be uncorrected grammatical, spelling, and recognitions errors present. [employer] Consult Note Consult date: 09/12/22 Reason for consult: DKA, diabetic left foot with cellulitis and osteomyelitis, acute kidney injury HPI: Sydni Padron is a 42 year old female with past medical history of gestational diabetes, noncompliant with insulin, right big toe infection status post amputation, cholecystectomy presented the ED at the [facility] in [facility] with complains of altered mental status, nausea, vomiting for 2 days, elevated blood sugars. [place]
[2022-09-12 09:23] LABS: Total Triiodothyronine (T3) 1.31 NG/ML (0.97-1.69)
--- NOTE | 2022-09-12 09:29 | ECG_ITS ---
Measurements Intervals [employer] Rate: 119 P: 48 MO: 150 QRS: 7 QRSD: 96 T: 32 QT: 341 QTc: 480 Interpretive Statements SINUS TACHYCARDIA BORDERLINE T WAVE ABNORMALITY- INF/HIGH LAT LEADS BASELINE ARTIFACT- I, II, AVR, AVF ABNORMAL ECG COMPARED TO ECG 09/11/2022 12:56:58 T-WAVE ABNORMALITY NOW PRESENT Electronically Signed On 09-12-2022 13:05:26 CDT by Seamus Crawley D.O.
--- NOTE | 2022-09-12 10:57 | PM.CNGS ---
Assessment and Plan Assessment and plan (1) Diabetic infection of left foot: Code(s): E11.628 - Type 2 diabetes mellitus with other skin complications; L08.9 - Local infection of the skin and subcutaneous tissue, unspecified Status: Acute Assessment and Plan: I reviewed the CT and Xrays. Patient has a severe infection of her left foot which appears to be tracking proximally toward the heel. This will require opening and debridement initially to identify the extent of the infection. There is a good possibility that she will require partial foot amputation but might also need a below knee amputation depending on extent of infection. She is on appropriate broad spectrum antibiotics currently. Will start Dakin's dressing changes for local control until debridement tomorrow. (2) Osteomyelitis of great toe of left foot: Code(s): M86.9 - Osteomyelitis, unspecified Status: Acute (3) Sepsis: Code(s): A41.9 - Sepsis, unspecified organism Status: Acute (4) Diabetic ketoacidosis: Code(s): E11.10 - Type 2 diabetes mellitus with ketoacidosis without coma Status: Acute Assessment and Plan: Patient currently in ICU. Continue glucose management per Casting Technician. Discussed with patient that she will continue to have wound problems and might not even heal appropriately from an amputation if her glucose isn't adequately controlled. History of Present Illness Consult details Consult date: 09/12/22 Reason for consult: other (diabetic foot wound) Requesting physician: Harrison Covarrubias MD Narrative: This is a 42-year-old woman who I am asked to see this morning for a left diabetic foot wound. She presented to [facility] yesterday with unresponsiveness and diabetic ketoacidosis. Her blood sugar was nearly 800 with a hemoglobin A1c 13.9. She had an elevated white blood count signs of severe acidosis. She was transferred to [facility] for further care. Since being transferred and placed on an insulin drip, she is more responsive. She has been diabetic for at least 3 years, but also had gestational diabetes with her 2 kids. She had a history a right great toe amputation in 2019 for a similar diabetic foot infection. She has had some problems with this wound on her left great toe for at least a couple weeks. She has not sought medical treatment previously for this and she has been off her diabetes meds for 2-3 months. Review of Systems Review of Systems: All systems reviewed & are unremarkable except as noted in HPI and below Eyes: Eyes: Denies change in vision ENT: Denies hearing loss, Denies neck pain and Denies sore throat Cardiovascular: Cardiovascular: Denies chest pain and Denies dyspnea Respiratory: Respiratory: Denies cough, Denies dyspnea and Denies wheezing Gastrointestinal: Gastrointestinal: Denies abdominal pain, Reports nausea and Reports vomiting Genitourinary: Genitourinary: Denies hematuria and Denies dysuria Musculoskeletal: Musculoskeletal: Reports as per HPI Integumentary/Breasts: Skin/Breast: Reports as per HPI Allergic/Immunologic: Allergic/Immunologic: Denies wheezing PMF Past Medical History Medical History (Updated 09/12/22 @ 11:11 by Olman Jones DO) Diabetes type 2, uncontrolled Gestational diabetes Surgical History Surgical History (Updated 09/11/22 @ 21:05 by Kathia Johnson PA-C) History of section History of cholecystectomy 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 Code status: Full code. Smoking status: Never smoker Alcohol intake: never Substance use: never Lack o
[2022-09-12 10:59] LABS: Anion Gap 7 mmol/L (8-16); Blood Urea Nitrogen 29 mg/dL (7-17); Calcium 8.2 mg/dL (8.4-10.2); Carbon Dioxide 17 mmol/L (22-30); Chloride 117 mmol/L (98-107); Estimated CRCL calculation 96 ml/min; Estimated Glomerular Filt Rate > 60; Glucose 211 mg/dL (65-110); Potassium 2.9 mmol/L (3.4-5.0); Sodium 141 mmol/L (137-145)
[2022-09-12 11:10] LABS: Troponin I < 0.012 ng/mL (0.000-0.034)
--- NOTE | 2022-09-12 11:22 | PM.IMPN ---
Progress Note: A&P Assessment and Plan (1) Diabetic ketoacidosis: Code(s): E11.10 - Type 2 diabetes mellitus with ketoacidosis without coma Status: Acute Assessment and Plan: Continue supportive care in the ICU for DKA. Monitor and replace electrolytes. Blood sugars are improved. Anion gap improved. (2) Diabetic infection of left foot: Code(s): E11.628 - Type 2 diabetes mellitus with other skin complications; L08.9 - Local infection of the skin and subcutaneous tissue, unspecified Status: Acute Assessment and Plan: Continue IV antibiotics. Appreciate surgical consult. (3) Cellulitis of left foot: Code(s): L03.116 - Cellulitis of left lower limb Status: Acute Assessment and Plan: As above (4) Acute kidney injury: Code(s): N17.9 - Acute kidney failure, unspecified Status: Acute Assessment and Plan: Monitor. Kidney function now normal. Subjective Date/time seen: 09/12/22 11:22 Interval history: No new complaints. Exam Narrative: General: Patient is anxious, complaining of nausea HEENT:? Pupils are pupils are equal and reactive, sclera is clear, moist oral mucosa Neck:? Supple Respiratory:? Clear to auscultation bilaterally, tachypneic, no wheezing Cardiac:? S1-S2 normal, sinus tachycardia Abdomen:? Soft, nontender, nondistended, hypoactive bowel sounds Extremities:? Left foot with dressing in place, erythema noted, warm to touch, swelling noted Neuro:? Patient is awake, alert, oriented, able to answer questions and follow simple commands. Skin:? Left foot skin is warm, erythematous Psych:? Anxious Objective Data Vital Signs Vital Signs: Vital Signs - 24 hr 09/11/22 18:29 09/11/22 18:28 09/11/22 18:43 Temperature 90.0 F L 89.9 F L 93.0 F L Pulse Rate 118 H Respiratory Rate 36 H Blood Pressure 129/79 Pulse Oximetry 96 Oxygen Delivery Oxygen Flow Rate 09/11/22 18:58 09/11/22 19:13 09/11/22 19:30 Temperature 93.7 F L 94.0 F L 94.8 F L Pulse Rate Respiratory Rate Blood Pressure Pulse Oximetry Oxygen Delivery Oxygen Flow Rate 09/11/22 20:00 09/11/22 20:30 09/11/22 21:00 Temperature 95.2 F L 96.4 F L 96.7 F L Pulse Rate Respiratory Rate Blood Pressure Pulse Oximetry Oxygen Delivery Oxygen Flow Rate 09/11/22 20:00 09/11/22 20:00 09/11/22 20:00 Temperature 95.2 F L Pulse Rate 131 H 131 H 131 H Respiratory Rate 34 H 34 H Blood Pressure 137/92 H Pulse Oximetry 97 97 Oxygen Delivery Nasal Cannula Oxygen Flow Rate 2 09/11/22 21:30 09/11/22 22:00 09/11/22 22:00 Temperature 97.3 F L 97.7 F Pulse Rate 134 H 134 H Respiratory Rate 27 H Blood Pressure 145/90 H Pulse Oximetry 99 Oxygen Delivery Oxygen Flow Rate 09/11/22 22:00 09/11/22 22:30 09/12/22 00:00 Temperature 97.7 F 98.0 F Pulse Rate 137 H Respiratory Rate 26 H Blood Pressure Pulse Oximetry 97 Oxygen Delivery Room Air Oxygen Flow Rate 09/12/22 00:00 09/12/22 00:00 09/12/22 02:00 Temperature 99 F Pulse Rate 137 H 137 H 120 H Respiratory Rate 26 H Blood Pressure 145/84 H Pulse Oximetry 97 Oxygen Delivery Oxygen Flow Rate 09/12/22 02:00 09/12/22 04:00 09/12/22 04:00 Temperature 99.9 F H 100.2 F H Pulse Rate 120 H 123 H 123 H Respiratory Rate 34 H 36 H 36 H Blood Pressure 158/78 H 155/83 H Pulse Oximetry 100 99 99 Oxygen Delivery Room Air Oxygen Flow Rate 09/12/22 04:00 09/12/22 06:00 09/12/22 07:00 Temperature 100.4 F H Pulse Rate 123 H 124 H 123 H Respiratory Rate 22 H Blood Pressure 122/94 H Pulse Oximetry 100 Oxygen Delivery Oxygen Flow Rate 09/12/22 08:00 09/12/22 10:00 09/12/22 08:00 Temperature 100.5 F H 100.1 F H Pulse Rate 122 H 119 H Respiratory Rate 24 H 21 H Blood Pressure 156/82 H 142/71 H Pulse Oximetry 99 98 98 Oxygen Delivery Room Air Oxygen Flow R
[2022-09-12] MEDS: INSULIN HUMAN REGULAR (*BKC) 100 UNITS in SODIUM CHLORIDE 0.9% IV 99 ML 11.9 UNITS IV CONT (12:24)
[2022-09-12] MEDS: PROCHLORPERAZINE EDISYLATE 10 MG/2 ML VIAL IV PUSH ×2 (12:25→20:09)
[2022-09-12] MEDS: KCL 40 MEQ/WATER 100 ML 100 ML 25 ML IVPB (12:25)
[2022-09-12] MEDS: CENTRAL LINE FLUSH 10 ML IV PUSH ×2 (13:47→21:55)
[2022-09-12 14:56] LABS: Anion Gap 9 mmol/L (8-16); Blood Urea Nitrogen 25 mg/dL (7-17); Carbon Dioxide 15 mmol/L (22-30); Chloride 118 mmol/L (98-107); Estimated CRCL calculation 96 ml/min; Estimated Glomerular Filt Rate > 60; Glucose 118 mg/dL (65-110); Potassium 3.2 mmol/L (3.4-5.0); Sodium 142 mmol/L (137-145)
[2022-09-12 14:56] LABS: Glucose Point of Care 162 mg/dl (65-105)
[2022-09-12 14:56] LABS: Glucose Point of Care 204 mg/dl (65-105)
[2022-09-12 14:56] LABS: Glucose Point of Care 119 mg/dl (65-105)
[2022-09-12 14:56] LABS: Glucose Point of Care 179 mg/dl (65-105)
[2022-09-12 14:56] LABS: Glucose Point of Care 134 mg/dl (65-105)
[2022-09-12 14:56] LABS: Glucose Point of Care 165 mg/dl (65-105)
[2022-09-12 14:56] LABS: Glucose Point of Care 154 mg/dl (65-105)
[2022-09-12 14:56] LABS: Glucose Point of Care 154 mg/dl (65-105)
[2022-09-12 14:57] LABS: Magnesium 1.6 mg/dL (1.6-2.3)
[2022-09-12] MEDS: MAGNESIUM SULF 2 GM/WATER 50ML 2 GM/50 ML BAG IVPB (16:02)
[2022-09-12 19:04] LABS: Anion Gap 7 mmol/L (8-16); Blood Urea Nitrogen 21 mg/dL (7-17); Calcium 8.1 mg/dL (8.4-10.2); Carbon Dioxide 17 mmol/L (22-30); Chloride 118 mmol/L (98-107); Estimated CRCL calculation 96 ml/min; Estimated Glomerular Filt Rate > 60; Glucose 115 mg/dL (65-110); Magnesium 2.2 mg/dL (1.6-2.3); Potassium 3.3 mmol/L (3.4-5.0); Sodium 142 mmol/L (137-145)
[2022-09-12] MEDS: INSULIN GLARGINE (*BKC) 100 UNITS/ML 40 UNITS SUB-Q (20:07)
[2022-09-12] MEDS: SOD HYPOCHLORITE 1/4 STRENGTH 473 ML 1 APPLIC TOPICAL (20:11)
[2022-09-12 20:15] LABS: Glucose Point of Care 117 mg/dl (65-105)
[2022-09-12 20:15] LABS: Glucose Point of Care 130 mg/dl (65-105)
[2022-09-12 20:15] LABS: Glucose Point of Care 121 mg/dl (65-105)
[2022-09-12 20:15] LABS: Glucose Point of Care 137 mg/dl (65-105)
[2022-09-12 20:16] LABS: Glucose Point of Care 135 mg/dl (65-105)
[2022-09-12 21:17] LABS: Vancomycin Trough 14.2 ug/mL (10.0-20.0)
[2022-09-12] MEDS: INSULIN ASPART (*BKC) 100 UNITS/ML SUB-Q (23:52)
[2022-09-12 23:53] LABS: Glucose Point of Care 217 mg/dl (65-105)
[2022-09-13] VITALS (21 sets, daily range): BP systolic 130–165; BP diastolic 72–97; PULSE 105–123; RESP 14–30; TEMP 36.8–38.7; O2SAT 29–100; BMI 35.1
[2022-09-13] MEDS: INSULIN ASPART (*BKC) 100 UNITS/ML SUB-Q ×4 (04:00→23:54)
[2022-09-13 04:05] LABS: Glucose Point of Care 239 mg/dl (65-105)
[2022-09-13 05:57] LABS: Basophils Percent Auto 0.1 % (0.2-1.2); Hematocrit 24.1 % (37.0-47.0); Immature Granulocyte Absolute 0.12 K/mm3 (0.00-0.031); Immature Granulocyte Percent A 0.9 % (0-0.5); Lymphocytes Absolute Auto 1.66 K/mm3 (0.9-3.2); Lymphocytes Percent Auto 12.1 % (18.3-44.2); Mean Corpuscular HGB Conc 33.2 g/dl (32-36); Mean Corpuscular Hemoglobin 27.1 pg (26-34); Mean Corpuscular Volume 81.7 fl (80-100); Mean Platelet Volume 9.3 fl (7.4-10.4); Monocytes Absolute Auto 1.4 K/mm3 (0.1-0.6); Monocytes Percent Auto 9.9 % (2.6-8.5); Neutrophils Absolute Auto 10.6 K/mm3 (1.3-6.7); Platelet Count Result 386 k/mm3 (150-375); Red Blood Count 2.95 M/mm3 (4.2-5.4); Red Cell Distribution Width 13.6 % (11.5-14.5); White Blood Count 13.7 K/mm3 (4.5-10.0)
[2022-09-13 06:07] LABS: INR 1.1; Prothrombin Time 14.8 Seconds (11.1-14.7)
[2022-09-13 06:08] LABS: Alanine Aminotransferase 13 U/L (6-35); Albumin Level 2.6 g/dL (3.5-5.1); Alkaline Phosphatase 92 U/L (38-126); Anion Gap 5 mmol/L (8-16); Aspartate Amino Transferase 14 U/L (14-36); Bilirubin,Total 0.2 mg/dL (0.2-1.3); Blood Urea Nitrogen 16 mg/dL (7-17); Carbon Dioxide 18 mmol/L (22-30); Chloride 116 mmol/L (98-107); Estimated CRCL calculation 96 ml/min; Estimated Glomerular Filt Rate > 60; Glucose 198 mg/dL (65-110); Magnesium 2.2 mg/dL (1.6-2.3); Partial Thromboplastin Time 29.2 SECONDS (22.3-36.8); Phosphorus 1.2 mg/dL (2.5-4.5); Potassium 3.2 mmol/L (3.4-5.0); Sodium 139 mmol/L (137-145)
[2022-09-13] MEDS: CLINDAMYCIN 900 MG/D5W 50 ML 900 MG/50 ML PIGGYBACK 50 MG IVPB ×3 (06:27→21:38)
[2022-09-13] MEDS: MEROPENEM 1 GM in SODIUM CHLORIDE 0.9% IV 100 ML 200 ML IVPB ×3 (06:27→21:38)
[2022-09-13] MEDS: CENTRAL LINE FLUSH 10 ML IV PUSH ×3 (06:29→21:38)
--- NOTE | 2022-09-13 07:24 | PCWOUND ---
Received consult for patients left foot wounds. Patient seen by General Surgery who plan to take patient to surgery for debridement of wounds today. Will follow patient post surgery if needed.
[2022-09-13] MEDS: METOPROLOL TARTRATE INJ 5 MG/5 ML VIAL IV PUSH (08:42)
[2022-09-13] MEDS: POTASSIUM PHOS,M-BASIC-D-BASIC 40 MMOL in SODIUM CHLORIDE 0.9% IV 250 ML 43.89 MMOL IVPB (08:44)
[2022-09-13] MEDS: SODIUM CHLORIDE 0.45% 1,000 ML 75 ML IV CONT ×2 (08:44→22:17)
[2022-09-13] MEDS: PANTOPRAZOLE SODIUM IV 40 MG VIAL IV PUSH (08:45)
[2022-09-13] MEDS: SOD HYPOCHLORITE 1/4 STRENGTH 473 ML 1 APPLIC TOPICAL (08:45)
[2022-09-13] MEDS: PROCHLORPERAZINE EDISYLATE 10 MG/2 ML VIAL IV PUSH ×2 (09:00→14:57)
[2022-09-13 09:11] LABS: Glucose Point of Care 176 mg/dl (65-105)
--- NOTE | 2022-09-13 09:29 | WPDINTPN ---
Progress Note: A&P Assessment and Plan (1) Diabetic ketoacidosis: Code(s): E11.10 - Type 2 diabetes mellitus with ketoacidosis without coma Status: Acute Assessment and Plan: Patient presented to the [facility] in [facility] with nausea, vomiting for 2 days, patient has not been taking his insulin for a few months -patient was diagnosed with diabetic ketoacidosis, was given 3 L IV fluids, started on insulin infusion -likely cause is diabetic left foot with osteomyelitis and cellulitis -on 09/12/2022 night patient was transition to long-acting insulin and sliding scale insulin -hemoglobin A1c this admission is 13.9 -nausea and vomiting as have improved -discontinue IV fluid -continue Lantus 40 units at night (2) Diabetic infection of left foot: Code(s): E11.628 - Type 2 diabetes mellitus with other skin complications; L08.9 - Local infection of the skin and subcutaneous tissue, unspecified Status: Acute Assessment and Plan: Patient with osteomyelitis of left foot, diabetic foot ulcer, cellulitis, osteomyelitis of the left foot -09/11 patient was started on meropenem, clindamycin vancomycin -09/11: blood cultures are negative x2 09/11: Wound culture negative so far -patient will require long-term antibiotic -PICC line placed on 09/12/2022 -appreciate surgery evaluation, patient did wound debridement and evaluation of the extent of infection today on 09/13 09/11: x-ray left foot showed severe forefoot cellulitis with extensive simultaneous gas and soft tissue swelling of the forefoot 09/11: CT left foot: CT findings concerning for osteomyelitis involving the first proximal phalanx. Extensive forefoot cellulitis and subcutaneous gas. Consider MR of the foot without and with contrast for further evaluation. (3) Cellulitis of left foot: Code(s): L03.116 - Cellulitis of left lower limb Status: Acute Assessment and Plan: As above (4) Acute kidney injury: Code(s): N17.9 - Acute kidney failure, unspecified Status: Acute Assessment and Plan: Initial creatinine on admission was 1.8 likely related hypovolemia, dehydration, diabetic ketoacidosis, sepsis -adequately fluid-resuscitated -additional IV fluid bolus this morning -creatinine has normalized along with good urine output -continue to monitor renal function, electrolytes and urine output Plan DVT prophylaxis: Lovenox on hold this morning for debridement Stress ulcer prophylaxis: Protonix Nutrition: NPO, for as patient on the OR today Code Status: Full code Critical Care Time Spent: 35 minutes Due to a high probability of clinically significant, life threatening deterioration, the patient required my highest level of preparedness to intervene emergently and I personally spent this critical care time directly and personally managing the patient. This critical care time included obtaining a history; examining the patient; pulse oximetry; ordering and review of studies; arranging urgent treatment with development of a management plan; evaluation of patient's response to treatment; frequent reassessment; and discussions with other providers. It was exclusive of separately billable procedures and treating other patients and teaching time. Please see Assessment and Plan section and the rest of the note for further information on patient assessment and treatment This dictation may have been done utilizing a voice recognition system. Attempts have been made to correct errors. However, there may be uncorrected grammatical, spelling, and recognitions errors present. Subjective Date/time seen: 09/13/22 09:29 Interval history: Reason for consult: DKA, diabetic left foot with cellulitis and osteomyelitis, acute kidney injury 09/13/2022 patient seen and examined the ICU remains awake to answer questions appropriately and follows simple states she feels better that this time she came to the hospital. She eller
--- NOTE | 2022-09-13 11:00 | PM.IMPN ---
Progress Note: A&P Assessment and Plan (1) Diabetic ketoacidosis: Code(s): E11.10 - Type 2 diabetes mellitus with ketoacidosis without coma Status: Acute Assessment and Plan: improved. Monitor blood sugar. (2) Diabetic infection of left foot: Code(s): E11.628 - Type 2 diabetes mellitus with other skin complications; L08.9 - Local infection of the skin and subcutaneous tissue, unspecified Status: Acute Assessment and Plan: Appreciate surgical input. Plan for debrided continue IV antibiotics (3) Cellulitis of left foot: Code(s): L03.116 - Cellulitis of left lower limb Status: Acute Assessment and Plan: As above (4) Acute kidney injury: Code(s): N17.9 - Acute kidney failure, unspecified Status: Acute Assessment and Plan: kidney function improved. Monitor creatinine and electrolytes Subjective Date/time seen: 09/13/22 11:00 Interval history: No complaints Exam Narrative: General: Patient is anxious, complaining of nausea HEENT:? Pupils are pupils are equal and reactive, sclera is clear, moist oral mucosa Neck:? Supple Respiratory:? Clear to auscultation bilaterally, tachypneic, no wheezing Cardiac:? S1-S2 normal, sinus tachycardia Abdomen:? Soft, nontender, nondistended, hypoactive bowel sounds Extremities:? Left foot with dressing in place, erythema noted, warm to touch, swelling noted Neuro:? Patient is awake, alert, oriented, able to answer questions and follow simple commands. Skin:? Left foot skin is warm, erythematous Psych:? Anxious Objective Data Vital Signs Vital Signs: Vital Signs - 24 hr 09/12/22 12:00 09/12/22 12:00 09/12/22 12:00 Temperature 100.1 F H Pulse Rate 120 H 118 H Respiratory Rate 35 H 26 H Blood Pressure 134/66 Pulse Oximetry 96 95 Oxygen Delivery Room Air 09/12/22 14:00 09/12/22 14:00 09/12/22 16:00 Temperature Pulse Rate 124 H 123 H Respiratory Rate 30 H 31 H Blood Pressure 147/72 H Pulse Oximetry 94 96 Oxygen Delivery Room Air 09/12/22 16:00 09/12/22 16:00 09/12/22 18:00 Temperature 100.5 F H 100.6 F H Pulse Rate 120 H 120 H 123 H Respiratory Rate 29 H 19 Blood Pressure 144/71 H 157/71 H Pulse Oximetry 95 96 Oxygen Delivery 09/12/22 18:00 09/12/22 20:00 09/12/22 20:00 Temperature Pulse Rate 126 H 97 125 H Respiratory Rate 20 Blood Pressure Pulse Oximetry 96 Oxygen Delivery Room Air 09/12/22 20:00 09/12/22 22:00 09/12/22 22:00 Temperature 100.9 F H Pulse Rate 125 H 122 H 122 H Respiratory Rate 18 26 H Blood Pressure 145/68 H 144/66 H Pulse Oximetry 96 95 Oxygen Delivery 09/13/22 00:00 09/13/22 00:00 09/13/22 00:00 Temperature 100.3 F H Pulse Rate 117 H 117 H 117 H Respiratory Rate 25 H 25 H Blood Pressure 140/72 Pulse Oximetry 93 93 Oxygen Delivery Room Air 09/13/22 02:00 09/13/22 02:00 09/13/22 04:00 Temperature 100.2 F H Pulse Rate 116 H 116 H 123 H Respiratory Rate 27 H 24 H Blood Pressure 152/81 H Pulse Oximetry 94 94 Oxygen Delivery Room Air 09/13/22 04:00 09/13/22 06:00 09/13/22 04:00 Temperature 100.5 F H Pulse Rate 123 H 122 H 123 H Respiratory Rate 24 H Blood Pressure 165/82 H Pulse Oximetry 94 Oxygen Delivery 09/13/22 06:00 09/13/22 08:00 09/13/22 08:42 Temperature 101.2 F H Pulse Rate 122 H 122 H 121 H Respiratory Rate 30 H 21 H Blood Pressure 162/77 H 165/81 H Pulse Oximetry 93 94 Oxygen Delivery Intake/Output Intake/Output: Intake & Output 09/10/22 09/11/22 09/12/22 09/13/22 23:59 23:59 23:59 23:59 Intake Total 650 4316 840 Output Total 2100 1000 Balance 650 2216 -160 Meds/Results Medications: Active Medications Generic Name Dose Route Start Last Admin Trade Name Freq PRN Reason Stop Dose Admin Acetaminophen 650 mg 09/12/22 07:59 09/12/22 20:08 Acetaminophen 325 Mg Tablet PO 650 mg Q4H PRN
[2022-09-13 11:07] LABS: Glucose Point of Care 293 mg/dl (65-105)
[2022-09-13 11:41] LABS: Glucose Point of Care 193 mg/dl (65-105)
--- NOTE | 2022-09-13 12:16 | WPDANESEPPF ---
Anes - Initial Pre Proc Eval Procedure: Operation Date: 09/13/22 13:00 Proposed Procedures p Wound Debridement Left Foot - Olman Jones DO Date/Time: 09/13/22 12:16 Surgeon: Matilde Sena DO Pre Op Diagnosis: DKA Patient Data Age: 42 Gender: F Height: 1.68 m Weight: 98.6 kg Last Vital Signs Temp 38.6 C H 09/13/22 10:00 Pulse 117 H 09/13/22 10:00 Resp 21 H 09/13/22 10:00 BP 152/83 H 09/13/22 10:00 Pulse Ox 94 09/13/22 10:00 O2 Del Method Room Air 09/13/22 04:00 O2 Flow Rate 2 09/11/22 20:00 Allergies Allergy/AdvReac Type Severity Reaction Status Date / Time Penicillins Allergy Intermediate Rash Verified 09/11/22 22:30 Home Medications Medication Instructions Recorded Confirmed Type levonorgestrel 0.15 mg-ethinyl 1 tablet PO DAILY 09/12/22 09/12/22 History estradiol 0.03 mg (21) tablet Laboratory Tests 09/11/22 09/12/22 09/12/22 20:28 07:19 08:24 WBC RBC Hgb Hct MCV MCH MCHC RDW Plt Count MPV Immature Gran % (Auto) Neut % (Auto) Lymph % (Auto) Vernon % (Auto) Eos % (Auto) Baso % (Auto) Lymph # (Auto) Vernon # (Auto) Eos # (Auto) Baso # (Auto) Abs Immat Gran (auto) Absolute Neuts (auto) Absolute Nucleated RBC Nucleated RBC % PT INR APTT Sodium Potassium Chloride Carbon Dioxide Anion Gap BUN Creatinine Estim Creat Clear Calc Estimated GFR Glucose POC Capillary Glucose 293 H mg/dl 165 H mg/dl 162 H mg/dl (65-105) (65-105) (65-105) Calcium Phosphorus Magnesium Total Bilirubin AST ALT Alkaline Phosphatase Total Protein Albumin Vancomycin Trough 09/12/22 09/12/22 09/12/22 09:37 10:35 11:34 WBC RBC Hgb Hct MCV MCH MCHC RDW Plt Count MPV Immature Gran % (Auto) Neut % (Auto) Lymph % (Auto) Vernon % (Auto) Eos % (Auto) Baso % (Auto) Lymph # (Auto) Vernon # (Auto) Eos # (Auto) Baso # (Auto) Abs Immat Gran (auto) Absolute Neuts (auto) Absolute Nucleated RBC Nucleated RBC % PT INR APTT Sodium Potassium Chloride Carbon Dioxide Anion Gap BUN Creatinine Estim Creat Clear Calc Estimated GFR Glucose POC Capillary Glucose 154 H mg/dl 204 H mg/dl 179 H mg/dl (65-105) (65-105) (65-105) Calcium Phosphorus Magnesium Total Bilirubin AST ALT Alkaline Phosphatase Total Protein Albumin Vancomycin Trough 09/12/22 09/12/22 09/12/22 12:31 13:31 14:28 WBC RBC Hgb Hct MCV MCH MCHC RDW Plt Count MPV Immature Gran % (Auto) Neut % (Auto) Lymph % (Auto) Vernon % (Auto) Eos % (Auto) Baso % (Auto) Lymph # (Auto) Vernon # (Auto) Eos # (Auto) Baso # (Auto) Abs Immat Gran (au
--- NOTE | 2022-09-13 12:17 | PC.NURSE ---
Patient transported to OR preop room 11 at 1210 by OR staff accompanied by this RN. Handoff report given to LIAN Barrett with OR department. Further care and management to be resumed by OR team staff.
[2022-09-13 12:26] LABS: Glucose Point of Care 190 mg/dl (65-105)
--- NOTE | 2022-09-13 12:48 | WPDHPUPDATE1 ---
History and Physical Update Update Date/Time: 09/13/22 12:48 History and Physical has been reviewed, including an updated exam of the patient. There are NO changes in the patient's condition. Risks, benefits, and alternatives have been discussed and questions answered. Patient agrees to proceed with procedure.
[2022-09-13] MEDS: SODIUM CHLORIDE 0.9% IV 500 ML 30 ML IV CONT (12:54)
[2022-09-13] MEDS: BUPivacaine HCL 0.25% PF 30 ML VIAL INFILTRATE (13:20)
[2022-09-13 13:51] LABS: Glucose Point of Care 207 mg/dl (65-105)
--- NOTE | 2022-09-13 13:55 | P.OP_ITS ---
Procedure Note - Detailed Date of Procedure 09/13/22 Pre-op Diagnosis Diabetic left foot wound, sepsis, DKA Post-op Diagnosis Same Procedure Performed Sharp excisional debridement left diabetic foot wound measuring 8 cm x 6 cm dorsal and 5 cm x 4 cm plantar including skin, subcutaneous fat, muscle, and fascia Surgeon Olman Jones, DO Anesthesia General and Local ( 0.5% bupivacaine) Indications this is a 42-year-old woman who presented with diabetic ketoacidosis and a left foot wound. She noticed the foot wound about 2-3 weeks ago and this was progressively worsening. She is an uncontrolled diabetic and has not been on any diabetic medications for the past several months. Her blood sugar was near ly 800 in the emergency department and she was unresponsive. She was transferred to our ICU for further treatment. She has multiple necrotic wounds on the plantar surface of the left foot and swelling and fluctuance the dorsal surface. Discussions were made with the patient about treatment options and decision was made to proceed with debridement of the left foot wound. Findings Sharp excisional debridement was performed using scalpel and scissors. The wound measured 8 cm x 6 cm on the dorsal surface of the foot and measured 5 cm x 4 cm on the plantar surface. The necrotic tissue was excised and discarded. The wound included skin, subcutaneous fat, fascia, muscle, and tendon. The bone was visible and likely appears to be involved as well. Debridement was carried out to control the infection. There appeared to still be about 30-40% necrotic tissue within the wound bed. Description of Procedure Procedure as well as risks, benefits, and alternatives were discussed with the patient. Written consent was obtained and placed in chart prior to procedure. Patient was brought back to surgical suite. She was placed supine on the operating table. Time-out was done to confirm patient and procedure. Her left foot area was prepped and draped in sterile fashion using Betadine prep. 0.5% bupivacaine was infiltrated locally around the wounds. An 8 cm incision was made on the dorsal surface of the foot extending from the skin between the 1st and 2nd digits to the proximal forefoot. Incision was then carried for about 6 cm laterally to adequately visualize the area where the infection was extending. Curved scissors were then used to cut away necrotic tissue within the wound bed. All areas of the infection were opened up to allow for adequate debridement. I then also used a curette to scrape away some of the necrotic tissue within the wound bed. Hemostasis then appeared adequate. I then moved my attention to the plantar surface of the foot. A 5 cm x 4 cm area of necrotic skin and subcutaneous tissue was debrided using a 15 blade scalpel and scissors. The wound on plantar surface of the foot appeared to communicate with the dorsal surface. I irrigated both wounds with sterile saline. 1 in iodoform gauze was then packed into the wounds followed by 4 x 4 gauze, ABD pads, and Kerlix wrap. The patient was then awakened from anesthesia, extubated, and transferred to recovery. Estimated Blood Loss 10 Packing Yes ( 1 in iodoform gauze) Complications No immediate complications Condition Stable Disposition ICU [facility] Billing Surgery - Charge Forward: Surgery Billing
[2022-09-13] MEDS: fentaNYL CITRATE INJ (*CRX) 100 MCG/2 ML VIAL 25 MCG IV PUSH ×2 (14:45→14:55)
--- NOTE | 2022-09-13 15:48 | PC.NURSE ---
Patient arrived back from OR to ICU 6 at 1545. Report received via telephone at [phone]. This RN to resume patient care.
[2022-09-13 19:14] LABS: Glucose Point of Care 256 mg/dl (65-105)
[2022-09-13] MEDS: TOLNAFTATE 1% POWDER 45 GM BTL 1 APPLIC TOPICAL (20:07)
[2022-09-13] MEDS: INSULIN GLARGINE (*BKC) 100 UNITS/ML 40 UNITS SUB-Q (20:07)
[2022-09-13 20:17] LABS: Glucose Point of Care 270 mg/dl (65-105)
[2022-09-13 23:57] LABS: Glucose Point of Care 234 mg/dl (65-105)
[2022-09-14] VITALS (14 sets, daily range): BP systolic 130–162; BP diastolic 68–90; PULSE 99–112; RESP 12–28; TEMP 36.3–38.3; O2SAT 92–100
[2022-09-14] MEDS: MEROPENEM 1 GM in SODIUM CHLORIDE 0.9% IV 100 ML 200 ML IVPB ×3 (05:04→21:10)
[2022-09-14] MEDS: CENTRAL LINE FLUSH 10 ML IV PUSH ×3 (05:04→21:13)
[2022-09-14] MEDS: CLINDAMYCIN 900 MG/D5W 50 ML 900 MG/50 ML PIGGYBACK 50 MG IVPB ×3 (05:04→21:12)
[2022-09-14 05:20] LABS: Basophils Percent Auto 0.3 % (0.2-1.2); Eosinophils Percent Auto 0.2 % (0-4.4); Hematocrit 21.9 % (37.0-47.0); Hemoglobin 7.3 g/dL (12.0-15.0); Immature Granulocyte Absolute 0.19 K/mm3 (0.00-0.031); Immature Granulocyte Percent A 1.3 % (0-0.5); Lymphocytes Absolute Auto 2.92 K/mm3 (0.9-3.2); Lymphocytes Percent Auto 20.1 % (18.3-44.2); Mean Corpuscular HGB Conc 33.3 g/dl (32-36); Mean Corpuscular Hemoglobin 27.5 pg (26-34); Mean Corpuscular Volume 82.6 fl (80-100); Mean Platelet Volume 9.4 fl (7.4-10.4); Monocytes Percent Auto 6.7 % (2.6-8.5); Neutrophils Absolute Auto 10.4 K/mm3 (1.3-6.7); Neutrophils Percent Auto 71.4 % (45.5-73.1); Platelet Count Result 363 k/mm3 (150-375); Red Blood Count 2.65 M/mm3 (4.2-5.4); Red Cell Distribution Width 14.1 % (11.5-14.5); White Blood Count 14.5 K/mm3 (4.5-10.0)
[2022-09-14 05:38] LABS: Alanine Aminotransferase 11 U/L (6-35); Albumin Level 2.4 g/dL (3.5-5.1); Alkaline Phosphatase 88 U/L (38-126); Anion Gap 5 mmol/L (8-16); Aspartate Amino Transferase 13 U/L (14-36); Bilirubin,Total 0.2 mg/dL (0.2-1.3); Blood Urea Nitrogen 10 mg/dL (7-17); Calcium 7.1 mg/dL (8.4-10.2); Carbon Dioxide 21 mmol/L (22-30); Chloride 111 mmol/L (98-107); Estimated CRCL calculation 97 ml/min; Estimated Glomerular Filt Rate > 60; Glucose 178 mg/dL (65-110); Phosphorus 3.1 mg/dL (2.5-4.5); Potassium 2.9 mmol/L (3.4-5.0); Sodium 137 mmol/L (137-145)
[2022-09-14 07:29] LABS: Glucose Point of Care 174 mg/dl (65-105)
[2022-09-14] MEDS: ENOXAPARIN 40 MG/0.4 ML SYRINGE SUB-Q (08:11)
[2022-09-14] MEDS: PANTOPRAZOLE SODIUM IV 40 MG VIAL IV PUSH ×2 (08:11→21:09)
[2022-09-14] MEDS: TOLNAFTATE 1% POWDER 45 GM BTL 1 APPLIC TOPICAL ×2 (08:12→21:10)
[2022-09-14 08:27] LABS: Glucose Point of Care 141 mg/dl (65-105)
[2022-09-14] MEDS: PROCHLORPERAZINE EDISYLATE 10 MG/2 ML VIAL IV PUSH (08:33)
[2022-09-14 09:26] LABS: IFOB Positive Control Positive; Immunochemical Fecal Occult Bl Positive (N)
[2022-09-14] MEDS: POTASSIUM CHLORIDE 20 MEQ PACKET (FOR LIQUID) 40 MEQ PO (10:08)
[2022-09-14] MEDS: KCL 40 MEQ/WATER 100 ML 100 ML 25 ML IVPB (10:09)
[2022-09-14] MEDS: KCL 20 MEQ/0.45% NS 1,000 ML 75 ML IV CONT ×2 (10:09→23:15)
--- NOTE | 2022-09-14 11:05 | WPDINTPN ---
Progress Note: A&P Assessment and Plan (1) Diabetic infection of left foot: Code(s): E11.628 - Type 2 diabetes mellitus with other skin complications; L08.9 - Local infection of the skin and subcutaneous tissue, unspecified Status: Acute Assessment and Plan: Patient with osteomyelitis of left foot, diabetic foot ulcer, cellulitis, osteomyelitis of the left foot -09/11 patient was started on meropenem, clindamycin vancomycin which will be continued for now -09/11: blood cultures are negative x2 09/11: Wound culture is growing group B strep -patient will require long-term antibiotic -PICC line placed on 09/12/2022 -09/13 ?Sharp excisional debridement left diabetic foot wound measuring 8 cm x 6 cm dorsal and 5 cm x 4 cm plantar including skin, subcutaneous fat, muscle, and fascia 09/11: x-ray left foot showed severe forefoot cellulitis with extensive simultaneous gas and soft tissue swelling of the forefoot 09/11: CT left foot: CT findings concerning for osteomyelitis involving the first proximal phalanx. Extensive forefoot cellulitis and subcutaneous gas. Consider MR of the foot without and with contrast for further evaluation. (2) Diabetic ketoacidosis: Code(s): E11.10 - Type 2 diabetes mellitus with ketoacidosis without coma Status: Acute Assessment and Plan: Patient presented to the [facility] in [facility] with nausea, vomiting for 2 days, patient has not been taking his insulin for a few months -patient was diagnosed with diabetic ketoacidosis, was given 3 L IV fluids, started on insulin infusion -likely cause is diabetic left foot with osteomyelitis and cellulitis -since then patient has anion gap has closed and patient has been transition to subcutaneous long-acting Lantus and sliding scale insulin. -hemoglobin A1c this admission is 13.9 -nausea and vomiting as have improved (3) Cellulitis of left foot: Code(s): L03.116 - Cellulitis of left lower limb Status: Acute Assessment and Plan: As above (4) Acute kidney injury: Code(s): N17.9 - Acute kidney failure, unspecified Status: Acute Assessment and Plan: Initial creatinine on admission was 1.8 likely related hypovolemia, dehydration, diabetic ketoacidosis, sepsis -adequately fluid-resuscitated and creatinine has now normalized -continue to monitor renal function, electrolytes and urine output (5) Swelling of left lower extremity: Code(s): M79.89 - Other specified soft tissue disorders Status: Acute Assessment and Plan: Likely secondary to infection but will check a Doppler to rule out DVT (6) Anemia: Code(s): D64.9 - Anemia, unspecified Status: Acute Assessment and Plan: Patient has had a gradual drop in hemoglobin which could be hemodilution as patient received significant amount IV fluids but patient has positive Hemoccult. IV PPI q.12 hours Hold Lovenox GI consult Check iron studies although MCV is normal Check reticulocyte count B12 folic acid LDH and haptoglobin (7) Electrolyte abnormality: Code(s): E87.8 - Other disorders of electrolyte and fluid balance, not elsewhere classified Status: Acute Assessment and Plan: Replace low potassium Plan DVT prophylaxis: SCDs Stress ulcer prophylaxis: Protonix Nutrition: Diabetic diet is ordered Code Status: Full code Incentive spirometry Transfer out ICU today Subjective Date/time seen: 09/14/22 Overnight events reviewed. Low-grade fever On room air She states she feels much better and denies any specific complaints. Review of system is positive for nausea but no vomiting. She is tolerating p.o. diet. She states her foot aches intermittently but this time she does not have any pain. All other systems were reviewed and were negative Good urine output Other vitals acceptable and blood pressure is now elevated Interval history: Reason for consult: DKA, diabetic left
--- NOTE | 2022-09-14 11:26 | PCFNICU ---
ICU Rounding Note: Pt current nutrition is DBCC. Last recorded weight is 100.4 kg. Bowel Motility:+BM reported 09/11 Labs Reviewed:Glu 178, K 2.9, Alb 2.4 Meds Noted:Lantus, Lovenox, Vancomycin Skin: Left foot ulcer-debridement on 09/13 Additional Notes: Diet order has advanced to a DBCC diet. Oral Intake 100% of meal. Patient has been educated on current diet order. No further nutritional needs at this time. Following daily in ICU rounds.
[2022-09-14 11:36] LABS: Reticulocyte Hemoglobin Conten 25.8 pg (28.2-35.7); Reticulocyte Percent 0.83 % (0.7-4.3); Reticulocytes Absolute 0.02 M/mm3 (0.02-0.1)
[2022-09-14 11:40] LABS: Glucose Point of Care 210 mg/dl (65-105)
[2022-09-14] MEDS: INSULIN ASPART (*BKC) 100 UNITS/ML SUB-Q ×3 (11:41→21:04)
[2022-09-14 12:04] LABS: Lactate Dehydrogenase 136 U/L (120-246)
[2022-09-14 12:07] LABS: Vancomycin Trough 18.6 ug/mL (10.0-20.0)
[2022-09-14 12:34] LABS: Iron 20 ug/dL (37-170); Percent Iron Saturation 9 % (20-50)
[2022-09-14 13:11] LABS: Folic Acid 5.6 ng/mL (2.76->20)
--- NOTE | 2022-09-14 13:56 | WPDGICN ---
Assessment and Plan Assessment and plan (1) Anemia: Code(s): D64.9 - Anemia, unspecified Status: Acute Assessment and Plan: Patient with chronic anemia that has now worsened consistent with recent GI bleeding. Black melenic heme-positive stool suggest upper GI bleeding source. I suspect patient likely has stress ulceration and/or gastritis. Plan to maintain patient on PPI acid suppression therapy. Avoid anticoagulation. An EGD will be performed tomorrow. Patient is already eat breakfast today. Continue monitor hemoglobin transfuse if necessary. (2) Melena: Code(s): K92.1 - Melena Status: Acute Assessment and Plan: Black stool confirmed be Hemoccult positive suggesting upper GI blood loss. This likely confirms with drop in hemoglobin since admission hospital. (3) Diabetic ketoacidosis: Code(s): E11.10 - Type 2 diabetes mellitus with ketoacidosis without coma Status: Acute (4) Cellulitis of left foot: Code(s): L03.116 - Cellulitis of left lower limb Status: Acute GI Consult Note Consult date/time: 09/14/22 13:56 Reason for consult: Melena and progressive anemia HPI: Sydni Padron is a 42 year old female I am asked to see at the request of the quality rn service. Patient admitted to [facility] in transfer from [place] on 09/11/2022 with diabetic ketoacidosis. At that time patient was poorly responsive. She has been maintained in the intensive care unit. Patient has been treated for DKA and has improved. She has a significant decubitus ulcer and osteomyelitis on her left foot which was degraded yesterday. Today she was noted to have a decline in her hemoglobin to 7.3 along with black melenic stools. Patient's baseline hemoglobin of 10-1/2 to 11 on presentation has slowly declined since admission hospital. Patient denies any abdominal pain. She has no known prior history of peptic ulcer disease. Stool Hemoccult today was confirmed to be positive. Review of Systems Review of Systems: Review of systems noncontributory. 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 Code status: Full code. Smoking status: Never smoker Alcohol intake: never Substance use: never Lack of Transportation: No Lack of Food: Never True Current Housing: I Have Housing Concerned About Future Housing: No Difficulty Paying Gas/Electric Bills: No Difficulty Paying for Meds: No Currently Unemployed: No Education: Bachelor's Degree Difficulty w/ Childcare or Family Care: No Additional living arrangements comments: Lives with spouse and children. Spiritual care concerns: No Meds Home Medications and Allergies Home Medications Medication Instructions Recorded Confirmed Type levonorgestrel 0.15 mg-ethinyl 1 tablet PO DAILY 09/12/22 09/12/22 History estradiol 0.03 mg (21) tablet Allergies Allergy/AdvReac Type Severity Reaction Status Date / Time Penicillins Allergy Intermediate Rash Verified 09/11/22 22:30 Vital Signs Vital Signs - 24 hr 09/13/22 14:00 09/13/22 14:15 09/13/22 14:30 Temperature Pulse Rate 110 H 111 H 106 H Respiratory Rate 30 H 24 H 30 H Blood Pressure 162/94 H 157/97 H 149/82 H Pulse Oximetry 100 100 100 Oxygen Delivery Simple Face Mask Room Air Room Air Oxygen Flow Rate 10 09/13/22 14:45 09/13/22 15
--- NOTE | 2022-09-14 16:27 | PM.PNGS ---
Progress Note: A&P Assessment and Plan (1) Diabetic infection of left foot: Code(s): E11.628 - Type 2 diabetes mellitus with other skin complications; L08.9 - Local infection of the skin and subcutaneous tissue, unspecified Status: Acute Assessment and Plan: S/p excisional debridement yesterday. Debridement was extensive involving the skin, subq, fat, muscle, and fascia. The wound and cellulitis are stable today. Repacked the wounds with 1/2 iodoform gauze. Discussed with the patient that she will likely require either partial foot amputation with extensive wound care and risk of further complications/infection versus BKA. Continue broad-spectrum IV antibiotics. Will reassess the wound and cellulitis tomorrow and decide on further surgical intervention at that time. (2) Osteomyelitis of great toe of left foot: Code(s): M86.9 - Osteomyelitis, unspecified Status: Acute (3) Sepsis: Code(s): A41.9 - Sepsis, unspecified organism Status: Acute (4) Diabetic ketoacidosis: Code(s): E11.10 - Type 2 diabetes mellitus with ketoacidosis without coma Status: Acute Assessment and Plan: Off insulin drip and transferring out of the ICU today. Glucose improved. Plan I have discussed the patient's case and plan of care with Dr. Jones. Subjective Subjective Date/Time Seen: 09/14/22 16:27 Post Op day: 1 (Sharp excisional debridement left diabetic foot wound measuring 8 cm x 6 cm dorsal and 5 cm x 4 cm plantar including skin, subcutaneous fat, muscle, and fascia) Interval history: Patient seen in ICU but as IMU overflow. She started having melena and GI is planning endoscopic evaluation tomorrow. She reports some intermittent dull pain in her left foot. No other complaints. Feels the swelling and redness in her left leg has improved since before surgery yesterday. Exam Narrative: Left foot dressing removed. Dorsal foot wound with tendon exposed, minimal slough in the wound bed, no purulent drainage. There is some ischemic skin changes of the lateral skin flap/edge of the wound. Plantar wound with some dusky tissue in the lateral base of the wound, no purulent drainage. Repacked wound with 1/2 iodoform gauze. Some mild improvement of erythema of the lower extremity. Objective Data Vital Signs Vital Signs: Vital Signs - 24 hr 09/13/22 18:00 09/13/22 18:00 09/13/22 20:00 Temperature 100.6 F H Pulse Rate 119 H 119 H Respiratory Rate 29 H Blood Pressure 152/87 H Pulse Oximetry 29 L 97 Oxygen Delivery Room Air 09/13/22 20:00 09/13/22 20:00 09/13/22 22:00 Temperature 100.9 F H Pulse Rate 110 H 110 H 105 H Respiratory Rate 28 H Blood Pressure 130/73 Pulse Oximetry 97 Oxygen Delivery 09/13/22 22:00 09/14/22 00:00 09/14/22 00:00 Temperature 101 F H Pulse Rate 105 H 108 H Respiratory Rate 30 H 28 H Blood Pressure 138/75 130/68 Pulse Oximetry 93 94 94 Oxygen Delivery Room Air 09/14/22 00:00 09/14/22 02:00 09/14/22 02:00 Temperature Pulse Rate 108 H 103 H 103 H Respiratory Rate 28 H Blood Pressure 137/73 Pulse Oximetry 95 Oxygen Delivery 09/14/22 04:00 09/14/22 04:00 09/14/22 04:00 Temperature 100.2 F H Pulse Rate 103 H 101 H 101 H Respiratory Rate 28 H 27 H Blood Pressure 133/76 Pulse Oximetry 95 92 Oxygen Delivery Room Air 09/14/22 06:00 09/14/22 06:00 09/14/22 08:00 Temperature 99.8 F H Pulse Rate 100 99 103 H Respiratory Rate 23 H 27 H Blood Pressure 131/77 151/90 H Pulse Oximetry 93 93 Oxygen Delivery 09/14/22 08:00 09/14/22 10:00 09/14/22 12:00 Temperature 99.3 F Pulse Rate 103 H Respiratory Rate 12 Blood Pressure 146/70 H Pulse Oximetry 93 92 93 Oxygen Delivery Room Air Room Air 09/14/22 12:00 09/14/22 08:00 09/14/22 10:00 Temperature 99.6 F Pulse Rate 109 H 101 H 103 H Respiratory Rate 26 H Blood Pressure 162/86 H Pulse Oximetry 94 Oxygen
[2022-09-14 16:35] LABS: Glucose Point of Care 235 mg/dl (65-105)
--- NOTE | 2022-09-14 18:53 | PC.NURSE ---
1710- received pt from ICU to room 211- pt oriented to room and rountines of floor. monitor ST 100- denies pain
[2022-09-14 19:43] LABS: Glucose Point of Care 230 mg/dl (65-105)
[2022-09-14] MEDS: INSULIN GLARGINE (*BKC) 100 UNITS/ML 40 UNITS SUB-Q (21:13)
[2022-09-14 23:44] LABS: Blood Urea Nitrogen 8 mg/dL (7-17); Calcium 6.5 mg/dL (8.4-10.2); Carbon Dioxide 23 mmol/L (22-30); Estimated CRCL calculation 97 ml/min; Estimated Glomerular Filt Rate > 60; Glucose 244 mg/dL (65-110); Sodium 136 mmol/L (137-145)
[2022-09-15] VITALS (20 sets, daily range): BP systolic 126–165; BP diastolic 69–102; PULSE 97–117; RESP 18–20; TEMP 36–37.4; O2SAT 97–100
[2022-09-15 00:06] LABS: Anion Gap 4 mmol/L (8-16); Chloride 109 mmol/L (98-107); Potassium 3.4 mmol/L (3.4-5.0)
[2022-09-15 04:24] LABS: Glucose Point of Care 218 mg/dl (65-105)
[2022-09-15] MEDS: MEROPENEM 1 GM in SODIUM CHLORIDE 0.9% IV 100 ML 200 ML IVPB ×2 (05:39→15:13)
[2022-09-15] MEDS: CENTRAL LINE FLUSH 10 ML IV PUSH ×3 (05:39→21:04)
[2022-09-15] MEDS: CLINDAMYCIN 900 MG/D5W 50 ML 900 MG/50 ML PIGGYBACK 50 MG IVPB (05:40)
[2022-09-15 05:57] LABS: Hematocrit 21.2 % (37.0-47.0); Mean Corpuscular Hemoglobin 27.6 pg (26-34); Mean Corpuscular Volume 83.5 fl (80-100); Mean Platelet Volume 9.5 fl (7.4-10.4); Platelet Count Result 398 k/mm3 (150-375); Red Blood Count 2.54 M/mm3 (4.2-5.4); White Blood Count 13.9 K/mm3 (4.5-10.0)
[2022-09-15 06:13] LABS: Alanine Aminotransferase 11 U/L (6-35); Albumin Level 2.4 g/dL (3.5-5.1); Alkaline Phosphatase 98 U/L (38-126); Anion Gap 5 mmol/L (8-16); Aspartate Amino Transferase 17 U/L (14-36); Bilirubin,Total 0.2 mg/dL (0.2-1.3); Blood Urea Nitrogen 9 mg/dL (7-17); Calcium 6.8 mg/dL (8.4-10.2); Carbon Dioxide 22 mmol/L (22-30); Chloride 110 mmol/L (98-107); Estimated CRCL calculation 87 ml/min; Estimated Glomerular Filt Rate > 60; Glucose 189 mg/dL (65-110); Potassium 3.6 mmol/L (3.4-5.0); Sodium 137 mmol/L (137-145)
[2022-09-15 07:44] LABS: Glucose Point of Care 179 mg/dl (65-105)
[2022-09-15] MEDS: PANTOPRAZOLE SODIUM IV 40 MG VIAL IV PUSH ×2 (10:26→21:00)
[2022-09-15] MEDS: SOD HYPOCHLORITE 1/4 STRENGTH 473 ML 1 APPLIC TOPICAL ×2 (10:26→21:01)
[2022-09-15] MEDS: LACTATED RINGERS 1,000 ML 150 ML IV CONT ×2 (11:03→11:33)
[2022-09-15 11:06] LABS: Glucose Point of Care 153 mg/dl (65-105)
--- NOTE | 2022-09-15 11:07 | SUR.PREOP ---
No new order for urine per Dr Sandoval.
--- NOTE | 2022-09-15 11:14 | WPDANESEPPF ---
Anes - Initial Pre Proc Eval Procedure: Operation Date: 09/13/22 13:00 Proposed Procedures p Wound Debridement Left Foot - Olman Jones DO Operation Date: 09/15/22 11:30 Proposed Procedures p Esophagogastroduodenoscopy - Rivera Chambers MD Date/Time: 09/15/22 11:14 Surgeon: Matilde Sena DO Pre Op Diagnosis: DKA Patient Data Age: 42 Gender: F Height: 1.68 m Weight: 100.4 kg Last Vital Signs Temp 96.8 F L 09/15/22 11:06 Pulse 108 H 09/15/22 11:06 Resp 18 09/15/22 11:06 BP 162/74 H 09/15/22 11:06 Pulse Ox 100 09/15/22 11:06 O2 Del Method Room Air 09/15/22 11:06 O2 Flow Rate 10 09/13/22 14:00 Allergies Allergy/AdvReac Type Severity Reaction Status Date / Time Penicillins Allergy Intermediate Rash Verified 09/11/22 22:30 Home Medications Medication Instructions Recorded Confirmed Type levonorgestrel 0.15 mg-ethinyl 1 tablet PO DAILY 09/12/22 09/12/22 History estradiol 0.03 mg (21) tablet Laboratory Tests 09/14/22 09/14/22 09/14/22 05:00 05:00 11:02 WBC RBC Hgb Hct MCV MCH MCHC RDW Plt Count MPV Absolute Retic 0.02 M/mm3 (0.02-0.1) Percent Retic 0.83 % (0.7-4.3) Immature Retic Fraction 12.0 % (3.0-15.9) Retic Hgb Content 25.8 L pg (28.2-35.7) Haptoglobin Pending Sodium Potassium Chloride Carbon Dioxide Anion Gap BUN Creatinine Estim Creat Clear Calc Estimated GFR Glucose POC Capillary Glucose Calcium Magnesium Iron 20 L ug/dL (37-170) TIBC 224 L ug/dL (261-462) % Saturation 9 L % (20-50) Ferritin 302.00 H ng/mL (6.24-137) Total Bilirubin AST ALT Alkaline Phosphatase Lactate Dehydrogenase 136 U/L Cancelled (120-246) Total Protein Albumin Vitamin B12 851.0 pg/mL (239-931) Folate 5.6 ng/mL (2.76->20) Vancomycin Trough 18.6 ug/mL (10.0-20.0) 09/14/22 09/14/22 09/14/22 11:31 16:33 19:26 WBC RBC Hgb Hct MCV MCH MCHC RDW Plt Count MPV Absolute Retic Percent Retic Immature Retic Fraction Retic Hgb Content Haptoglobin Sodium Potassium Chloride Carbon Dioxide Anion Gap BUN Creatinine Estim Creat Clear Calc Estimated GFR Glucose POC Capillary Glucose 210 H mg/dl 235 H mg/dl 230 H mg/dl (65-105) (65-105) (65-105) Calcium Magnesium Iron TIBC % Saturation Ferritin Total Bilirubin AST ALT Alkaline Phosphatase Lactate Dehydrogenase Total Protein Albumin Vitamin B12 Folate Vancomycin Trough 09/14/22 09/15/22 09/15/22 23:14 04:16 05:45 WBC 13.9 H K/mm3 (4.5-10.0) RBC 2.54 L M/mm3 (4.2-5.4) Hgb 7.0 L g/dL (12.0-15.0) Hct 21.2 L % (37.0-47.0) MCV 83.5 fl (80-100) MCH 27.6 pg (26-34) MCHC 33.0 g/dl (32-36) RDW 14.0 % (11.5-14.5) Plt Count 398 H k/mm3 (150-375) MPV 9.5 fl (7.4-10.4) Absolute Retic Percent Retic Immature Retic Fraction Retic Hgb Content Haptoglobin
--- NOTE | 2022-09-15 11:18 | PM.PNGS ---
Progress Note: A&P Assessment and Plan (1) Diabetic infection of left foot: Code(s): E11.628 - Type 2 diabetes mellitus with other skin complications; L08.9 - Local infection of the skin and subcutaneous tissue, unspecified Status: Acute Assessment and Plan: S/p excisional debridement yesterday. Debridement was extensive involving the skin, subq, fat, muscle, and fascia. I had a lengthy discussion with patient today about further treatment options. Continued local wound care with possible partial foot amputation is possible, but she will likely still need continued wound care for some time. Since she does not have any signs of significant arterial occlusive disease, I am hopeful that with time this would heal and she would still be able to ambulate on her foot. Below knee amputation is also an option to gain complete control of the infection and not deal with an open wound usp. This would still require PT and prosthesis fitting before she would be able to ambulate and this could possibly take several months to completely heal. There are potential risks of phantom limb pain as well with any form of amputation. Patient understands both of her options and would like to proceed with below knee amputation. She is currently scheduled for EGD today due to anemia and melena. Will give 1 unit PRBC today and await results of EGD. Will likely proceed with left below knee amputation tomorrow. (2) Osteomyelitis of great toe of left foot: Code(s): M86.9 - Osteomyelitis, unspecified Status: Acute (3) Sepsis: Code(s): A41.9 - Sepsis, unspecified organism Status: Acute (4) Diabetic ketoacidosis: Code(s): E11.10 - Type 2 diabetes mellitus with ketoacidosis without coma Status: Acute Assessment and Plan: Off insulin drip. Glucose improved. Subjective Subjective Date/Time Seen: 09/15/22 11:18 Interval history: Patient tolerating wound care. Still having some pain. Exam Extrem: Other: Left foot open wound with some persistent necrotic tissue within base. No purulent drainage. Does not appear to be tracking further. Objective Data Vital Signs Vital Signs: Vital Signs - 24 hr 09/14/22 12:00 09/14/22 12:00 09/14/22 12:00 Temperature 37.6 C Pulse Rate 109 H 112 H Respiratory Rate 26 H Blood Pressure 162/86 H Pulse Oximetry 93 94 Oxygen Delivery Room Air 09/14/22 14:00 09/14/22 16:00 09/14/22 16:00 Temperature Pulse Rate 105 H 104 H Respiratory Rate Blood Pressure Pulse Oximetry 93 Oxygen Delivery Room Air 09/14/22 14:00 09/14/22 16:00 09/14/22 18:00 Temperature 37.5 C 37.7 C H Pulse Rate 103 H 106 H 102 H Respiratory Rate 27 H 24 H Blood Pressure 151/79 H 162/82 H Pulse Oximetry 100 Oxygen Delivery 09/14/22 19:47 09/14/22 20:00 09/14/22 20:00 Temperature 36.8 C Pulse Rate 107 H 109 H Respiratory Rate 22 H Blood Pressure 152/79 H Pulse Oximetry 99 99 Oxygen Delivery Room Air 09/14/22 23:40 09/14/22 22:00 09/15/22 00:00 Temperature 36.3 C L Pulse Rate 104 H 102 H Respiratory Rate 20 Blood Pressure 148/75 H Pulse Oximetry 100 100 Oxygen Delivery Room Air 09/15/22 00:00 09/15/22 02:00 09/15/22 04:00 Temperature Pulse Rate 101 H 103 H 100 Respiratory Rate Blood Pressure Pulse Oximetry Oxygen Delivery 09/15/22 04:00 09/15/22 04:00 09/15/22 06:00 Temperature 36.4 C Pulse Rate 107 H 102 H Respiratory Rate 20 Blood Pressure 143/69 H Pulse Oximetry 97 Oxygen Delivery Room Air 09/15/22 07:46 09/15/22 11:06 Temperature 36.2 C L 36.0 C L Pulse Rate 109 H 108 H Respiratory Rate 18 18 Blood Pressure 154/78 H 162/74 H Pulse Oximetry 100 100 Oxygen Delivery Room Air Intake/Output Intake/Output: Intake & Output 09/12/22 09/13/22 09/14/22 09/15/22 23:59 23:59 23:59 23:59 Intake Total 4466 3673.33 3630 650 Output Total 2100 545
[2022-09-15 11:55] LABS: Glucose Point of Care 171 mg/dl (65-105)
[2022-09-15 12:41] LABS: Glucose Point of Care 187 mg/dl (65-105)
[2022-09-15] MEDS: KCL 20 MEQ/0.45% NS 1,000 ML 75 ML IV CONT (15:27)
--- NOTE | 2022-09-15 15:53 | PCCCNOTE ---
On 09/15/22, the student, [Maggy Lara ], provided care and completed [facility] documentation on this patient. I have reviewed the student's documentation and agree with the findings.
[2022-09-15 16:14] LABS: Glucose Point of Care 217 mg/dl (65-105)
[2022-09-15] MEDS: SODIUM CHLORIDE 0.9% IV 250 ML 30 ML IV CONT (17:00)
--- NOTE | 2022-09-15 17:27 | WPDPN ---
Progress Note: A&P Assessment and Plan (1) Diabetic ketoacidosis: Code(s): E11.10 - Type 2 diabetes mellitus with ketoacidosis without coma Status: Acute Assessment and Plan: improved. Monitor blood sugar. 09/15/2022 interval history: 42 y/o female presented with DKA was admitted in ICU and treated with insulin infusion, her blood sugars have stablized and now out of ICU and in IMU, today patient is scheulded for EGD due Anemia, patient also has diabetes wound on her left foot and seen by surgery service and wound being debried however surgeon is recommending amputation BKA to prevent reoccuring wound and patient has agreed and scheudled for tomorrow. (2) Diabetic infection of left foot: Code(s): E11.628 - Type 2 diabetes mellitus with other skin complications; L08.9 - Local infection of the skin and subcutaneous tissue, unspecified Status: Acute Assessment and Plan: Appreciate surgical input. Plan for debrided continue IV antibiotics (3) Cellulitis of left foot: Code(s): L03.116 - Cellulitis of left lower limb Status: Acute Assessment and Plan: As above (4) Acute kidney injury: Code(s): N17.9 - Acute kidney failure, unspecified Status: Acute Assessment and Plan: kidney function improved. Monitor creatinine and electrolytes Subjective Date/time seen: 09/15/22 17:27 Interval history: HPI- Narrative: This is a 42-year-old female with history of gestational diabetes who is being directly admitted to the ICU from the emergency department at the [facility] for further treatment after she was found to be in diabetic ketoacidosis. She is quite ill and is a fair historian and as such some of the following history is supplemented via a review of her electronic medical records as well as discussions with her . She has not been feeling well for several weeks with progressive, generalized weakness and significant thirst. Yesterday she started vomiting and she reports numerous episodes of emesis, too numerous to count. Her found her unresponsive this morning at 11:00 and called 911. On arrival to the ER she was unresponsive to verbal commands but withdrew to noxious stimuli. Blood pressure was stable and she was tachycardic and tachypneic. Labs were significant for WBC count of 27.4, hemoglobin 10.3 sodium 136, potassium 5.7, chloride 101, carbon dioxide < 5, BUN 37, creatinine 1.80, glucose 796, hemoglobin A1c 13.9, lactic acid 0.7. Urine was concentrated and was positive for 3+ protein, 3+ glucose, and 3+ ketones. She tested negative for influenza, RSV, and COVID. ABG showed a pH of 6.93, pCO2 12.0, bicarb 2.5. Head and cervical spine CT showed no acute findings. In the ED she received a total of 3 L IV fluid, an amp of sodium bicarbonate, and she was started on insulin drip. Her mental status improved and she was arousable and following commands prior to transfer. At the time of my evaluation she is alert and oriented. She complains of severe thirst and shortness of breath. Blood pressures are stable but she remains tachycardic and tachypneic. On exam she has wounds on her left foot and swelling and redness the foot.? Wounds have been there for quite some time and she has never had them evaluated before. She was unaware of any discharge and she has no pain in the foot. She has not had a fever to her knowledge but she complains of chills. Her temperature on arrival to the ICU was 90.0. She currently denies headache, neck ache, sinus congestion, sore throat, chest pain, pleuritic pain, cough, abdominal pain, epigastric pain, dysuria, and diarrhea. 09/15/2022 interval history: 42 y/o female presented with DKA was admitted in ICU and treated with insulin infusion, her blood sugars have stablized and now out of ICU and in IMU, today patient is scheulded for EGD due Anemia, patient also has diabetes wound on her left foot and seen by surgery
--- NOTE | 2022-09-15 18:53 | PC.NURSE ---
This patient, Sydni Padron, was received from [ IMU room 211] on 09/15/22 at 1854. Patien oriented to unit policies and routines. Patient in bed with no complaints at this time.
--- NOTE | 2022-09-15 19:12 | PC.NURSE ---
1845- status changed to MT-transferred to m/t room 255 via bed accompanied by staff- report given to Janna BEAL- belongings with pt
[2022-09-15 19:49] LABS: Glucose Point of Care 289 mg/dl (65-105)
[2022-09-15] MEDS: TOLNAFTATE 1% POWDER 45 GM BTL 1 APPLIC TOPICAL (20:58)
[2022-09-15] MEDS: INSULIN GLARGINE (*BKC) 100 UNITS/ML 40 UNITS SUB-Q (20:58)
[2022-09-15] MEDS: INSULIN ASPART (*BKC) 100 UNITS/ML SUB-Q (20:59)
[2022-09-15] MEDS: MEROPENEM 1 GM in SODIUM CHLORIDE 0.9% IV 100 ML IVPB (21:04)
[2022-09-16] VITALS (18 sets, daily range): BP systolic 131–174; BP diastolic 71–97; PULSE 96–120; RESP 13–20; TEMP 36.4–37.1; O2SAT 97–100
[2022-09-16] MEDS: MEROPENEM 1 GM in SODIUM CHLORIDE 0.9% IV 100 ML IVPB ×2 (05:51→14:13)
[2022-09-16] MEDS: CENTRAL LINE FLUSH 10 ML IV PUSH ×2 (05:52→21:36)
[2022-09-16] MEDS: KCL 20 MEQ/0.45% NS 1,000 ML 75 ML IV CONT (06:07)
[2022-09-16 06:08] LABS: Hemoglobin 8.4 g/dL (12.0-15.0); Mean Corpuscular HGB Conc 33.6 g/dl (32-36); Mean Corpuscular Hemoglobin 28.4 pg (26-34); Mean Corpuscular Volume 84.5 fl (80-100); Platelet Count Result 437 k/mm3 (150-375); Red Blood Count 2.96 M/mm3 (4.2-5.4); Red Cell Distribution Width 14.1 % (11.5-14.5); White Blood Count 11.2 K/mm3 (4.5-10.0)
[2022-09-16 06:09] LABS: Glucose Point of Care 147 mg/dl (65-105)
[2022-09-16 06:22] LABS: Alanine Aminotransferase 11 U/L (6-35); Albumin Level 2.5 g/dL (3.5-5.1); Alkaline Phosphatase 103 U/L (38-126); Anion Gap 5 mmol/L (8-16); Aspartate Amino Transferase 14 U/L (14-36); Bilirubin,Total 0.2 mg/dL (0.2-1.3); Blood Urea Nitrogen 7 mg/dL (7-17); Calcium 6.8 mg/dL (8.4-10.2); Carbon Dioxide 23 mmol/L (22-30); Chloride 110 mmol/L (98-107); Estimated CRCL calculation 87 ml/min; Estimated Glomerular Filt Rate > 60; Glucose 154 mg/dL (65-110); Potassium 3.6 mmol/L (3.4-5.0); Sodium 138 mmol/L (137-145)
[2022-09-16] MEDS: PANTOPRAZOLE SODIUM IV 40 MG VIAL IV PUSH ×2 (08:38→21:34)
[2022-09-16] MEDS: TOLNAFTATE 1% POWDER 45 GM BTL 1 APPLIC TOPICAL ×2 (08:38→21:43)
[2022-09-16 09:17] LABS: Glucose Point of Care 129 mg/dl (65-105)
--- NOTE | 2022-09-16 09:39 | WPDANESEPPF ---
Anes - Initial Pre Proc Eval Procedure: Operation Date: 09/16/22 12:30 Proposed Procedures p Left Below Knee Amputation - Monae Carreno MD Date/Time: 09/16/22 09:39 Surgeon: Matilde Sena DO Pre Op Diagnosis: DKA Patient Data Age: 42 Gender: F Height: 1.68 m Weight: 100.4 kg Last Vital Signs Temp 37.1 C 09/16/22 05:36 Pulse 97 09/16/22 05:36 Resp 18 09/16/22 05:36 BP 167/78 H 09/16/22 05:36 Pulse Ox 100 09/16/22 05:36 O2 Del Method Room Air 09/15/22 20:00 O2 Flow Rate 10 09/13/22 14:00 Allergies Allergy/AdvReac Type Severity Reaction Status Date / Time Penicillins Allergy Intermediate Rash Verified 09/16/22 11:02 Home Medications Medication Instructions Recorded Confirmed Type levonorgestrel 0.15 mg-ethinyl 1 tablet PO DAILY 09/12/22 09/12/22 History estradiol 0.03 mg (21) tablet hydrocodone 5 mg-acetaminophen 325 1 tablet PO Q4H PRN Pain Rated 4-6 09/22/22 Rx mg tablet 5 days #30 tabs insulin detemir U-100 100 unit/mL 40 unit (0.4 mL) subcut HS 30 days 09/22/22 Rx (3 mL) subcutaneous pen (Levemir #15 mL FlexPen) insulin lispro 100 unit/mL 1 sliding scale dose subcut 09/22/22 Rx subcutaneous pen USEASDIRECTD 30 days #15 mL Laboratory Tests 09/15/22 09/15/22 09/15/22 11:02 11:54 12:35 WBC RBC Hgb Hct MCV MCH MCHC RDW Plt Count MPV Sodium Potassium Chloride Carbon Dioxide Anion Gap BUN Creatinine Estim Creat Clear Calc Estimated GFR Glucose POC Capillary Glucose 153 H mg/dl 171 H mg/dl 187 H mg/dl (65-105) (65-105) (65-105) Calcium Magnesium Total Bilirubin AST ALT Alkaline Phosphatase Total Protein Albumin Blood Type Antibody Screen Crossmatch 09/15/22 09/15/22 09/15/22 12:37 15:36 19:45 WBC RBC Hgb Hct MCV MCH MCHC RDW Plt Count MPV Sodium Potassium Chloride Carbon Dioxide Anion Gap BUN Creatinine Estim Creat Clear Calc Estimated GFR Glucose POC Capillary Glucose 217 H mg/dl 289 H mg/dl (65-105) (65-105) Calcium Magnesium Total Bilirubin AST ALT Alkaline Phosphatase Total Protein Albumin Blood Type A Positive Antibody Screen Negative Crossmatch See Detail 09/16/22 09/16/22 09/16/22 06:03 06:06 09:11 WBC 11.2 H K/mm3 (4.5-10.0) RBC 2.96 L M/mm3 (4.2-5.4) Hgb 8.4 L g/dL (12.0-15.0) Hct 25.0 L % (37.0-47.0) MCV 84.5 fl (80-100) MCH 28.4 pg (26-34) MCHC 33.6 g/dl (32-36) RDW 14.1 % (11.5-14.5) Plt Count 437 H k/mm3 (150-375) MPV 9.0 fl (7.4-10.4) Sodium 138 mmol/L (137-145) Potassium 3.6 mmol/L (3.4-5.0) Chloride 110 H mmol/L (98-107) Carbon Dioxide 23 mmol/L (22-30) Anion Gap 5 L mmol/L (8-16) BUN 7 mg/dL (7-17) Creatinine 0.90 mg/dL (0.7-1.0) Estim Creat Clear Calc 87 ml/min Estimated GFR > 60 (59 - ) Glucose 154 H mg/dL (65-110) POC Capillary Glucose 147 H mg/dl 129 H mg/dl (65-105) (65-105) Calcium 6.8 L mg/dL (8.4-10.2) Magnesium 2.0 mg/dL (1.6-2.3) Total Bilirubin 0.
--- NOTE | 2022-09-16 10:06 | WPDGIPROGNO ---
Progress Note: A&P Assessment and Plan (1) Erosive esophagitis: Code(s): K22.10 - Ulcer of esophagus without bleeding Status: Acute Assessment and Plan: Erosive esophagitis likely from vomiting. Could be from underlying acid reflux. Plan to maintain on pantoprazole 40mg p.o. b.i.d.. No additional bleeding noted at this time. This likely accounts for melena that is resolved. Consider follow-up EGD in 2-3 months to document healing as outpatient. (2) Anemia: Code(s): D64.9 - Anemia, unspecified Status: Acute Assessment and Plan: Patient with chronic anemia it decline in recent hemoglobin likely related to bleeding from erosive esophagitis. Esophagitis stable at present. Hemoglobin stable. (3) Osteomyelitis of great toe of left foot: Code(s): M86.9 - Osteomyelitis, unspecified Status: Acute (4) Diabetic ketoacidosis: Code(s): E11.10 - Type 2 diabetes mellitus with ketoacidosis without coma Status: Acute Assessment and Plan: DKA resolved. Patient has rather significant underlying diabetes. Continue management per primary care service. Subjective Date/time seen: 09/16/22 10:06 Interval history: Patient seen in follow-up today. Denies any significant heartburn. Tolerating diet without difficulty. No additional bleeding reported. Severe esophagitis noted on EGD yesterday. Review of Systems Review of Systems: Review of systems noncontributory. Exam Narrative: Physical exam reveals patient be alert comfortable at rest vital signs stable. HEENT exam is unremarkable. Patient anicteric. Lungs are clear. Heart without murmur. Abdominal exam bowel sounds are present soft nontender with no organomegaly. Foot bandaged because of osteomyelitis. Surgery being contemplated. Objective Data Vital Signs Vital Signs: Vital Signs - 24 hr 09/15/22 11:06 09/15/22 11:37 09/15/22 11:57 Temperature 96.8 F L Pulse Rate 108 H 97 100 Respiratory Rate 18 18 20 Blood Pressure 162/74 H 126/78 165/102 H Pulse Oximetry 100 100 100 Oxygen Delivery Room Air Room Air Room Air 09/15/22 11:47 09/15/22 17:00 09/15/22 17:21 Temperature 97.6 F 97.5 F L Pulse Rate 98 116 H 117 H Respiratory Rate 20 20 20 Blood Pressure 147/84 H 159/81 H 144/72 H Pulse Oximetry 100 100 100 Oxygen Delivery Room Air 09/15/22 12:00 09/15/22 12:00 09/15/22 18:21 Temperature 97 F L Pulse Rate 99 116 H Respiratory Rate 20 Blood Pressure 155/74 H Pulse Oximetry 100 100 Oxygen Delivery Room Air 09/15/22 14:00 09/15/22 16:00 09/15/22 16:00 Temperature Pulse Rate 107 H 116 H Respiratory Rate Blood Pressure Pulse Oximetry 100 Oxygen Delivery Room Air 09/15/22 19:21 09/15/22 20:21 09/15/22 20:00 Temperature 99.4 F 98.7 F Pulse Rate 112 H 114 H 113 H Respiratory Rate 18 18 Blood Pressure 155/71 H 163/85 H Pulse Oximetry 100 100 Oxygen Delivery 09/15/22 20:00 09/16/22 00:00 09/16/22 04:00 Temperature Pulse Rate 97 97 Respiratory Rate Blood Pressure Pulse Oximetry Oxygen Delivery Room Air 09/16/22 05:36 Temperature 98.7 F Pulse Rate 97 Respiratory Rate 18 Blood Pressure 167/78 H Pulse Oximetry 100 Oxygen Delivery Intake/Output Intake/Output: Intake & Output 09/13/22 09/14/22 09/15/22 09/16/22 23:59 23:59 23:59 23:59 Intake Total 3673.33 3630 4050 1250 Output Total 2400 3950 2150 2350 Balance 1273.33 -320 1900 -1100 Meds/Results Medications: Active Medications Generic Name Dose Route Start Last Admin Trade Name Freq PRN Reason Stop Dose Admin Acetaminophen 650 mg 09/12/22 07:59 09/12/22 20:08 Acetaminophen 325 Mg Tablet PO 650 mg Q4H PRN Administration Headache Hydrocodone Bitart/Acetaminophen 1 tab 09/16/22 08:23 Hydrocodone/Acetaminophen (*Crx) 5-325 Mg Tablet PO Q6H PRN Pain Rated 4-6 Dextrose 12.5 gm 09/11/22 18:33
--- NOTE | 2022-09-16 10:53 | WPDHPUPDATE1 ---
History and Physical Update Update Date/Time: 09/16/22 10:53 History and Physical has been reviewed, including an updated exam of the patient. There are NO changes in the patient's condition. Risks, benefits, and alternatives have been discussed and questions answered. Patient agrees to proceed with procedure.
--- NOTE | 2022-09-16 10:54 | WPDHPUPDATE1 ---
History and Physical Update Update Date/Time: 09/16/22 10:54 History and Physical has been reviewed, including an updated exam of the patient. There are NO changes in the patient's condition. Risks, benefits, and alternatives have been discussed and questions answered. Patient agrees to proceed with procedure.
[2022-09-16] MEDS: LACTATED RINGERS 1,000 ML 30 ML IV CONT (11:30)
--- NOTE | 2022-09-16 13:28 | P.OP_ITS ---
Procedure Note - Detailed Date of Procedure 09/16/22 Pre-op Diagnosis Necrotizing soft tissue infection left lower extremity Post-op Diagnosis Same Procedure Performed left below-knee amputation Surgeon Monae Carreno MD Anesthesia General Indications 42-year-old female presenting to the hospital with necrotizing wound infection of the left foot secondary to uncontrolled diabetes. The patient has underwent extensive debridement of the foot, however the infection continues to be uncontrolled. Given these findings, decision has been made to proceed with left below-knee amputation. Findings Necrotizing wound infection left foot Description of Procedure The patient was taken to the operating room and placed in the supine position. After adequate induction general anesthesia, the patient was prepped and draped in the normal sterile fashion. A time-out was then done to verify the patient's identity, as well as the procedure being performed. I began by marking out the borders of our below-knee amputation. The anterior flap was made approximately 12.5 cm from the tibial tuberosity and the posterior flap was then made approximately 25 cm from the tibial tuberosity. Once this was done a skin in cision was made over these markings. This incision was taken down into the subcutaneous tissue. I began by dissecting the anterior flap over the area of the tibia. I was able to identify the anterior tibial bundle and this was clamped and dissected. I was then able to get around the tibia and the bone was completely exposed. I then used a bone saw to transect the tibia. I was then able to identify the posterior tibial bundle. Again this bundle was dissected out, clamped, transected. I was then able to identify and dissect around the fibula. I was able to expose the bone with periosteal elevators. The bone was then transected approximately 2 cm proximal to our tibial transection. I now identified the peroneal bundle and this was clamped and transected. I then continued to dissect the post flap keeping the muscle intact over the flap. Once the specimen was completely transected, it was sent to pathology for further review. I then examined the bone and noted the transection sites were smooth. No other pathology was noted and no infection was noted in the remaining stump. At this point I brought the posterior flap over the newly- created amputation. The muscle was closed over our transected tibia and fibula. This was done with interrupted 0 Vicryl suture. I then closed the subcutaneous tissue over with 2-0 Vicryl suture. Lastly the skin was closed with 2-0 nylon vertical mattress sutures in an interrupted fashion. Adaptic was then placed over the incision site. Fluffs and Benson bandage were placed. The patient tolerated the procedure well and was extubated postop. She will be transferred to the recovery room in stable condition. Implants none Estimated Blood Loss 250 Drains No Packing No Pathology Yes Complications No immediate complications Condition Stable Disposition PACU [facility] Billing Surgery - Charge Forward: Surgery Billing
[2022-09-16 14:00] LABS: Glucose Point of Care 187 mg/dl (65-105)
[2022-09-16] MEDS: fentaNYL CITRATE INJ (*CRX) 100 MCG/2 ML VIAL 25 MCG IV PUSH ×4 (14:01→14:39)
[2022-09-16] MEDS: HYDROmorphone HCL INJ (*CRX) 1 MG/ML SYR 0.5 MG IV PUSH ×4 (14:28→15:20)
[2022-09-16] MEDS: CYCLOBENZAPRINE HCL 10 MG TABLET PO (16:29)
[2022-09-16 17:17] LABS: Glucose Point of Care 164 mg/dl (65-105)
[2022-09-16] MEDS: HYDROcodone/acetaminophen (*CRX) 7.5-325 MG TABLET 1 TAB PO ×2 (18:12→22:39)
[2022-09-16] MEDS: GABAPENTIN 300 MG CAPSULE PO (18:12)
[2022-09-16] MEDS: MEROPENEM 1 GM in SODIUM CHLORIDE 0.9% IV 100 ML 200 ML IVPB (21:35)
[2022-09-16] MEDS: INSULIN ASPART (*BKC) 100 UNITS/ML SUB-Q (21:35)
[2022-09-16] MEDS: INSULIN GLARGINE (*BKC) 100 UNITS/ML 40 UNITS SUB-Q (21:35)
[2022-09-16 22:49] LABS: Glucose Point of Care 289 mg/dl (65-105)
[2022-09-17] VITALS (10 sets, daily range): BP systolic 135–146; BP diastolic 72–79; PULSE 100–118; RESP 16–19; TEMP 36.5–36.9; O2SAT 100
[2022-09-17] MEDS: CYCLOBENZAPRINE HCL 10 MG TABLET PO ×4 (01:53→20:51)
[2022-09-17] MEDS: KCL 20 MEQ/0.45% NS 1,000 ML 75 ML IV CONT ×2 (01:53→15:04)
[2022-09-17] MEDS: HYDROcodone/acetaminophen (*CRX) 5-325 MG TABLET 1 TAB PO (03:09)
[2022-09-17] MEDS: CENTRAL LINE FLUSH 10 ML IV PUSH ×3 (06:04→20:47)
[2022-09-17] MEDS: MEROPENEM 1 GM in SODIUM CHLORIDE 0.9% IV 100 ML 200 ML IVPB (06:04)
[2022-09-17 06:17] LABS: Hematocrit 22.9 % (37.0-47.0); Hemoglobin 7.6 g/dL (12.0-15.0); Mean Corpuscular HGB Conc 33.2 g/dl (32-36); Mean Corpuscular Hemoglobin 28.5 pg (26-34); Mean Corpuscular Volume 85.8 fl (80-100); Mean Platelet Volume 8.8 fl (7.4-10.4); Platelet Count Result 492 k/mm3 (150-375); Red Blood Count 2.67 M/mm3 (4.2-5.4); Red Cell Distribution Width 14.3 % (11.5-14.5); White Blood Count 15.3 K/mm3 (4.5-10.0)
[2022-09-17 06:24] LABS: Alanine Aminotransferase 11 U/L (6-35); Albumin Level 2.5 g/dL (3.5-5.1); Alkaline Phosphatase 93 U/L (38-126); Anion Gap 5 mmol/L (8-16); Aspartate Amino Transferase 25 U/L (14-36); Bilirubin,Total 0.2 mg/dL (0.2-1.3); Blood Urea Nitrogen 8 mg/dL (7-17); Calcium 6.5 mg/dL (8.4-10.2); Carbon Dioxide 23 mmol/L (22-30); Chloride 106 mmol/L (98-107); Estimated CRCL calculation 66 ml/min; Estimated Glomerular Filt Rate 45; Glucose 120 mg/dL (65-110); Magnesium 1.9 mg/dL (1.6-2.3); Potassium 3.8 mmol/L (3.4-5.0); Sodium 134 mmol/L (137-145)
[2022-09-17 06:36] LABS: Glucose Point of Care 118 mg/dl (65-105)
--- NOTE | 2022-09-17 07:16 | PHAR ---
CRCL DOWN TO 66 ML/MIN. VANCOMYCIN SCHEDULE CHANGED TO Q18HR. LEVEL WILL BE CHECKED 1000 09/18.
[2022-09-17] MEDS: MORPHINE SULFATE (*CRX) 2 MG/ML INJ IV PUSH (08:02)
[2022-09-17] MEDS: GABAPENTIN 300 MG CAPSULE PO ×3 (08:29→18:18)
[2022-09-17] MEDS: ENOXAPARIN 40 MG/0.4 ML SYRINGE SUB-Q (08:29)
[2022-09-17] MEDS: PANTOPRAZOLE SODIUM IV 40 MG VIAL IV PUSH ×2 (08:29→20:46)
[2022-09-17 08:33] LABS: Glucose Point of Care 92 mg/dl (65-105)
[2022-09-17] MEDS: TOLNAFTATE 1% POWDER 45 GM BTL 1 APPLIC TOPICAL ×2 (08:35→20:46)
--- NOTE | 2022-09-17 08:59 | PM.PNGS ---
Progress Note: A&P Assessment and Plan (1) Necrotizing soft tissue infection: Code(s): M79.89 - Other specified soft tissue disorders Status: Acute Assessment and Plan: s/p BKA, cont local wound care, cont abx Subjective Subjective Date/Time Seen: 09/17/22 08:59 Interval history: feels ok, having some spasms at stump site Review of Systems Review of Systems: All systems reviewed & are unremarkable except as noted in HPI and below Exam Const: General: cooperative, comfortable and no acute distress Resp: Auscultation: clear to auscultation bilaterally Cardio: Rate: regular rate Rhythm: regular rhythm GI: Inspection: normal to inspection Extrem: Other: L BKA - drsg C/D/I Objective Data Vital Signs Vital Signs: Vital Signs - 24 hr 09/16/22 10:45 09/16/22 13:55 09/16/22 14:10 Temperature 36.6 C 36.5 C Pulse Rate 100 120 H 99 Respiratory Rate 20 20 18 Blood Pressure 156/84 H 131/71 173/97 H Pulse Oximetry 100 100 100 Oxygen Delivery Room Air Simple Face Mask Simple Face Mask Oxygen Flow Rate 8 8 09/16/22 14:25 09/16/22 14:40 09/16/22 14:55 Temperature Pulse Rate 97 97 103 H Respiratory Rate 20 16 20 Blood Pressure 174/91 H 164/86 H 164/84 H Pulse Oximetry 100 97 98 Oxygen Delivery Simple Face Mask Room Air Room Air Oxygen Flow Rate 8 09/16/22 15:10 09/16/22 15:25 09/16/22 15:50 Temperature 36.4 C Pulse Rate 98 99 103 H Respiratory Rate 13 13 20 Blood Pressure 151/75 H 150/74 H 154/84 H Pulse Oximetry 97 98 98 Oxygen Delivery Room Air Room Air Oxygen Flow Rate 09/16/22 16:05 09/16/22 16:35 09/16/22 16:00 Temperature 36.4 C 36.6 C Pulse Rate 98 101 H 96 Respiratory Rate 18 18 Blood Pressure 167/86 H 165/83 H Pulse Oximetry 98 99 Oxygen Delivery Oxygen Flow Rate 09/16/22 21:12 09/16/22 20:00 09/17/22 01:48 Temperature 36.6 C 36.5 C Pulse Rate 100 100 Respiratory Rate 14 16 Blood Pressure 161/88 H 135/72 Pulse Oximetry 100 100 Oxygen Delivery Room Air Oxygen Flow Rate 09/16/22 20:00 09/17/22 00:00 09/17/22 04:00 Temperature Pulse Rate 100 100 101 H Respiratory Rate Blood Pressure Pulse Oximetry Oxygen Delivery Oxygen Flow Rate 09/17/22 06:08 Temperature 36.6 C Pulse Rate 106 H Respiratory Rate 16 Blood Pressure 141/78 H Pulse Oximetry 100 Oxygen Delivery Oxygen Flow Rate Intake/Output Intake/Output: Intake & Output 09/14/22 09/15/22 09/16/22 09/17/22 23:59 23:59 23:59 23:59 Intake Total 3630 4050 4550 500 Output Total 3950 2150 2925 1500 Balance -320 1900 1625 -1000 Meds/Results Medications: Active Medications Generic Name Dose Route Start Last Admin Trade Name Freq PRN Reason Stop Dose Admin Acetaminophen 650 mg 09/12/22 07:59 09/12/22 20:08 Acetaminophen 325 Mg Tablet PO 650 mg Q4H PRN Administration Headache Hydrocodone Bitart/Acetaminophen 1 tab 09/16/22 16:05 09/16/22 22:39 Hydrocodone/Acetaminophen (*Crx) 7.5-325 Mg Tablet PO 1 tab Q4H PRN Administration Pain Rated 7-10 Hydrocodone Bitart/Acetaminophen 1 tab 09/16/22 16:07 09/17/22 03:09 Hydrocodone/Acetaminophen (*Crx) 5-325 Mg Tablet PO 1 tab Q4H PRN Administration Pain Rated 4-6 Cyclobenzaprine HCl 10 mg 09/17/22 07:37 09/17/22 08:01 Cyclobenzaprine Hcl 10 Mg Tablet PO 10 mg Q6H PRN Administration Muscle Spasm Dextrose 12.5 gm 09/11/22 18:33 Dextrose 50% 25 Gm/50 Ml Syringe IV PUSH PRN PRN Hypoglycemia Protocol Enoxaparin Sodium 40 mg 09/12/22 09:00 09/17/22 08:29 Enoxaparin 40 Mg/0.4 Ml Syringe SUB-Q 40 mg DAILY MARGUERITE Administration Gabapentin 300 mg 09/16/22 17:00 09/17/22 08:29 Gabapentin 300 Mg Capsule PO 300 mg TID MARGUERITE Administration Glucagon 1 mg 09/11/22 18:33 Glucagon For Inj 1 Mg Vial IM PRN PRN Hypoglycemia Protocol Glucose 15 gm 09/11/22 18:33
--- NOTE | 2022-09-17 11:08 | PCPTNOTE ---
On 09/17/22, the student, [Maine Peacock], provided care and completed [facility] documentation on this patient. I have reviewed the student's documentation and agree with the findings.
--- NOTE | 2022-09-17 11:16 | WPDPN ---
Progress Note: A&P Assessment and Plan (1) Diabetic ketoacidosis: Code(s): E11.10 - Type 2 diabetes mellitus with ketoacidosis without coma Status: Acute Assessment and Plan: improved. Monitor blood sugar. 09/17 interval history: 42 y/o female presented with DKA was admitted in ICU and treated with insulin infusion, her blood sugars have stabilized and now out of ICU and in IMU, on 09/15 patient had EGD due Anemia, GI suspect most likely erosive esophagitis, and recommended protonix 40mg BID, patient also has diabetes wound on her left foot and seen by surgery service and wound was debried however surgeon recommended amputation BKA to prevent reoccuring wound and patient has agreed and had BKA POD #1 stats pain still persist, able to do her PT, wants to go home with PT, patient will be seen by surgery service and further recommendation to follow. (2) Diabetic infection of left foot: Code(s): E11.628 - Type 2 diabetes mellitus with other skin complications; L08.9 - Local infection of the skin and subcutaneous tissue, unspecified Status: Acute Assessment and Plan: Appreciate surgical input. Plan for debrided continue IV antibiotics (3) Cellulitis of left foot: Code(s): L03.116 - Cellulitis of left lower limb Status: Acute Assessment and Plan: As above (4) Acute kidney injury: Code(s): N17.9 - Acute kidney failure, unspecified Status: Acute Assessment and Plan: kidney function improved. Monitor creatinine and electrolytes Subjective Date/time seen: 09/17/22 11:16 Interval history: HPI- Narrative: This is a 42-year-old female with history of gestational diabetes who is being directly admitted to the ICU from the emergency department at the [facility] for further treatment after she was found to be in diabetic ketoacidosis. She is quite ill and is a fair historian and as such some of the following history is supplemented via a review of her electronic medical records as well as discussions with her . She has not been feeling well for several weeks with progressive, generalized weakness and significant thirst. Yesterday she started vomiting and she reports numerous episodes of emesis, too numerous to count. Her found her unresponsive this morning at 11:00 and called 911. On arrival to the ER she was unresponsive to verbal commands but withdrew to noxious stimuli. Blood pressure was stable and she was tachycardic and tachypneic. Labs were significant for WBC count of 27.4, hemoglobin 10.3 sodium 136, potassium 5.7, chloride 101, carbon dioxide < 5, BUN 37, creatinine 1.80, glucose 796, hemoglobin A1c 13.9, lactic acid 0.7. Urine was concentrated and was positive for 3+ protein, 3+ glucose, and 3+ ketones. She tested negative for influenza, RSV, and COVID. ABG showed a pH of 6.93, pCO2 12.0, bicarb 2.5. Head and cervical spine CT showed no acute findings. In the ED she received a total of 3 L IV fluid, an amp of sodium bicarbonate, and she was started on insulin drip. Her mental status improved and she was arousable and following commands prior to transfer. At the time of my evaluation she is alert and oriented. She complains of severe thirst and shortness of breath. Blood pressures are stable but she remains tachycardic and tachypneic. On exam she has wounds on her left foot and swelling and redness the foot.? Wounds have been there for quite some time and she has never had them evaluated before. She was unaware of any discharge and she has no pain in the foot. She has not had a fever to her knowledge but she complains of chills. Her temperature on arrival to the ICU was 90.0. She currently denies headache, neck ache, sinus congestion, sore throat, chest pain, pleuritic pain, cough, abdominal pain, epigastric pain, dysuria, and diarrhea. 09/17/2022 interval history: 42 y/o female presented with DKA was admitted in ICU and treate
--- NOTE | 2022-09-17 11:26 | WPDPN ---
Progress Note: A&P Assessment and Plan (1) Diabetic ketoacidosis: Code(s): E11.10 - Type 2 diabetes mellitus with ketoacidosis without coma Status: Acute Assessment and Plan: improved. Monitor blood sugar. 09/16/2022 interval history:??42 y/o female presented with DKA was admitted in ICU and treated with insulin infusion, her blood sugars have stablized and now out of ICU and in IMU, on 09/15 patient had EGD due Anemia, patient also has diabetes wound on her left foot and seen by surgery service and wound being debried however surgeon is recommending amputation BKA to prevent reoccurring wound and patient has agreed and scheudled for later today will follow up. (2) Diabetic infection of left foot: Code(s): E11.628 - Type 2 diabetes mellitus with other skin complications; L08.9 - Local infection of the skin and subcutaneous tissue, unspecified Status: Acute Assessment and Plan: Appreciate surgical input. Plan for debrided continue IV antibiotics (3) Cellulitis of left foot: Code(s): L03.116 - Cellulitis of left lower limb Status: Acute Assessment and Plan: As above (4) Acute kidney injury: Code(s): N17.9 - Acute kidney failure, unspecified Status: Acute Assessment and Plan: kidney function improved. Monitor creatinine and electrolytes Subjective Date/time seen: 09/16/22 11:26 Interval history: HPI- Narrative: This is a 42-year-old female with history of gestational diabetes who is being directly admitted to the ICU from the emergency department at the [facility] for further treatment after she was found to be in diabetic ketoacidosis. She is quite ill and is a fair historian and as such some of the following history is supplemented via a review of her electronic medical records as well as discussions with her . She has not been feeling well for several weeks with progressive, generalized weakness and significant thirst. Yesterday she started vomiting and she reports numerous episodes of emesis, too numerous to count. Her found her unresponsive this morning at 11:00 and called 911. On arrival to the ER she was unresponsive to verbal commands but withdrew to noxious stimuli. Blood pressure was stable and she was tachycardic and tachypneic. Labs were significant for WBC count of 27.4, hemoglobin 10.3 sodium 136, potassium 5.7, chloride 101, carbon dioxide < 5, BUN 37, creatinine 1.80, glucose 796, hemoglobin A1c 13.9, lactic acid 0.7. Urine was concentrated and was positive for 3+ protein, 3+ glucose, and 3+ ketones. She tested negative for influenza, RSV, and COVID. ABG showed a pH of 6.93, pCO2 12.0, bicarb 2.5. Head and cervical spine CT showed no acute findings. In the ED she received a total of 3 L IV fluid, an amp of sodium bicarbonate, and she was started on insulin drip. Her mental status improved and she was arousable and following commands prior to transfer. At the time of my evaluation she is alert and oriented. She complains of severe thirst and shortness of breath. Blood pressures are stable but she remains tachycardic and tachypneic. On exam she has wounds on her left foot and swelling and redness the foot.? Wounds have been there for quite some time and she has never had them evaluated before. She was unaware of any discharge and she has no pain in the foot. She has not had a fever to her knowledge but she complains of chills. Her temperature on arrival to the ICU was 90.0. She currently denies headache, neck ache, sinus congestion, sore throat, chest pain, pleuritic pain, cough, abdominal pain, epigastric pain, dysuria, and diarrhea. 09/16/2022 interval history:??42 y/o female presented with DKA was admitted in ICU and treated with insulin infusion, her blood sugars have stablized and now out of ICU and in IMU, on 09/15 patient had EGD due Anemia, patient also has diabetes wound on her left foot and seen by surgery servi
[2022-09-17] MEDS: HYDROcodone/acetaminophen (*CRX) 7.5-325 MG TABLET 1 TAB PO ×2 (11:34→20:51)
[2022-09-17 12:17] LABS: Glucose Point of Care 111 mg/dl (65-105)
[2022-09-17] MEDS: metroNIDAZOLE 250 MG TABLET 500 MG PO ×2 (14:36→20:46)
[2022-09-17] MEDS: levoFLOXacin 750 MG TABLET PO (14:36)
--- NOTE | 2022-09-17 14:46 | WPDANESPN ---
Anes - Prog Note Post-Op Date/Time: 09/17/22 14:46 Vital Signs: Last Vital Signs Temp 36.6 C 09/17/22 06:08 Pulse 118 H 09/17/22 12:00 Resp 16 09/17/22 06:08 BP 141/78 H 09/17/22 06:08 Pulse Ox 100 09/17/22 06:08 O2 Del Method Room Air 09/17/22 11:38 O2 Flow Rate 8 09/16/22 14:25 Pain Score (VAS): 6 I/O: Intake & Output 09/16/22 09/17/22 09/17/22 23:59 07:59 15:59 Intake Total 1100 500 720 Output Total 1500 Balance 1100 -1000 720 Laboratory Tests 09/17/22 06:03 09/17/22 06:03 09/16/22 09/16/22 09/17/22 17:09 21:17 06:03 WBC 15.3 H RBC 2.67 L Hgb 7.6 L Hct 22.9 L MCV 85.8 MCH 28.5 MCHC 33.2 RDW 14.3 Plt Count 492 H MPV 8.8 Sodium 134 L Potassium 3.8 Chloride 106 Carbon Dioxide 23 Anion Gap 5 L BUN 8 Creatinine 1.30 H Estim Creat Clear Calc 66 Estimated GFR 45 L Glucose 120 H POC Capillary Glucose 164 H 289 H Calcium 6.5 L Magnesium 1.9 Total Bilirubin 0.2 AST 25 ALT 11 Alkaline Phosphatase 93 Total Protein 6.0 L Albumin 2.5 L 09/17/22 09/17/22 09/17/22 06:12 08:27 12:10 WBC RBC Hgb Hct MCV MCH MCHC RDW Plt Count MPV Sodium Potassium Chloride Carbon Dioxide Anion Gap BUN Creatinine Estim Creat Clear Calc Estimated GFR Glucose POC Capillary Glucose 118 H 92 111 H Calcium Magnesium Total Bilirubin AST ALT Alkaline Phosphatase Total Protein Albumin Microbiology 09/11/22 22:28 Blood Blood Culture - Final 09/11/22 22:28 Blood Blood Culture - Final Patient Feedback: Patient satisfied with anesthetic care.
[2022-09-17 16:57] LABS: Glucose Point of Care 127 mg/dl (65-105)
[2022-09-17 19:55] LABS: Glucose Point of Care 136 mg/dl (65-105)
[2022-09-17] MEDS: INSULIN GLARGINE (*BKC) 100 UNITS/ML 40 UNITS SUB-Q (20:43)
[2022-09-18] VITALS (10 sets, daily range): BP systolic 124–147; BP diastolic 46–81; PULSE 102–109; RESP 18–19; TEMP 36.1–36.6; O2SAT 97–100
[2022-09-18] MEDS: HYDROcodone/acetaminophen (*CRX) 7.5-325 MG TABLET 1 TAB PO ×4 (01:44→21:43)
[2022-09-18] MEDS: KCL 20 MEQ/0.45% NS 1,000 ML 75 ML IV CONT (04:25)
[2022-09-18] MEDS: CYCLOBENZAPRINE HCL 10 MG TABLET PO ×2 (04:26→11:45)
[2022-09-18 05:43] LABS: Hematocrit 21.8 % (37.0-47.0); Hemoglobin 7.2 g/dL (12.0-15.0); Mean Corpuscular Hemoglobin 28.8 pg (26-34); Mean Corpuscular Volume 87.2 fl (80-100); Mean Platelet Volume 8.7 fl (7.4-10.4); Platelet Count Result 509 k/mm3 (150-375); Red Cell Distribution Width 14.5 % (11.5-14.5); White Blood Count 14.4 K/mm3 (4.5-10.0)
[2022-09-18 05:49] LABS: Alanine Aminotransferase 11 U/L (6-35); Albumin Level 2.5 g/dL (3.5-5.1); Alkaline Phosphatase 104 U/L (38-126); Anion Gap 6 mmol/L (8-16); Aspartate Amino Transferase 23 U/L (14-36); Bilirubin,Total 0.2 mg/dL (0.2-1.3); Blood Urea Nitrogen 14 mg/dL (7-17); Calcium 6.4 mg/dL (8.4-10.2); Carbon Dioxide 22 mmol/L (22-30); Chloride 109 mmol/L (98-107); Estimated CRCL calculation 45 ml/min; Estimated Glomerular Filt Rate 29; Glucose 72 mg/dL (65-110); Potassium 3.9 mmol/L (3.4-5.0); Sodium 137 mmol/L (137-145)
[2022-09-18] MEDS: metroNIDAZOLE 250 MG TABLET 500 MG PO ×3 (05:49→20:51)
[2022-09-18] MEDS: CENTRAL LINE FLUSH 20 ML IV PUSH (05:50)
[2022-09-18] MEDS: CENTRAL LINE FLUSH 10 ML IV PUSH ×3 (05:50→20:51)
[2022-09-18] MEDS: PANTOPRAZOLE SODIUM IV 40 MG VIAL IV PUSH ×2 (08:19→20:51)
[2022-09-18] MEDS: TOLNAFTATE 1% POWDER 45 GM BTL 1 APPLIC TOPICAL ×2 (08:19→20:51)
[2022-09-18] MEDS: GABAPENTIN 300 MG CAPSULE PO ×3 (08:19→17:04)
[2022-09-18] MEDS: ENOXAPARIN 40 MG/0.4 ML SYRINGE SUB-Q (08:21)
[2022-09-18 08:38] LABS: Glucose Point of Care 70 mg/dl (65-105)
--- NOTE | 2022-09-18 11:00 | PM.PNGS ---
Progress Note: A&P Assessment and Plan (1) Necrotizing soft tissue infection: Code(s): M79.89 - Other specified soft tissue disorders Status: Acute Assessment and Plan: Patient is postop day 2. 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 Dressing is dry. Take down the dressing tomorrow and look at the stump. Continue supportive management as per hospitalist. Continue working with PT for transfers. Would like to get the Cortez catheter out as soon as possible. Subjective Subjective Date/Time Seen: 09/18/22 11:00 Post Op day: 2 Interval history: Patient is now postop day 2. After left below-knee amputation. He is up in a chair today working with therapy. Pain in the left BKA stump is okay. Exam Narrative: Left BKA stump dressing is dry. There is no swelling of the proximal leg. Objective Data Vital Signs Vital Signs: Vital Signs - 24 hr 09/17/22 11:38 09/17/22 12:00 09/17/22 14:30 Temperature 36.6 C Pulse Rate 118 H 108 H Respiratory Rate 18 Blood Pressure 141/77 H Pulse Oximetry 100 Oxygen Delivery Room Air 09/17/22 16:00 09/17/22 19:22 09/17/22 20:00 Temperature 36.9 C Pulse Rate 108 H 110 H 107 H Respiratory Rate 19 Blood Pressure 146/79 H Pulse Oximetry 100 Oxygen Delivery 09/18/22 00:00 09/18/22 04:00 09/18/22 04:48 Temperature 36.6 C Pulse Rate 106 H 105 H 105 H Respiratory Rate 19 Blood Pressure 124/64 Pulse Oximetry 97 Oxygen Delivery 09/18/22 08:20 09/18/22 08:30 09/18/22 08:00 Temperature 36.6 C Pulse Rate 105 H 102 H Respiratory Rate 18 Blood Pressure 132/46 L Pulse Oximetry 97 Oxygen Delivery Room Air Intake/Output Intake/Output: Intake & Output 09/15/22 09/16/22 09/17/22 09/18/22 23:59 23:59 23:59 23:59 Intake Total 4050 4550 2770 1840 Output Total 2150 2925 2450 4850 Balance 1900 1625 320 -3010 Meds/Results Medications: Active Medications Generic Name Dose Route Start Last Admin Trade Name Freq PRN Reason Stop Dose Admin Acetaminophen 650 mg 09/12/22 07:59 09/12/22 20:08 Acetaminophen 325 Mg Tablet PO 650 mg Q4H PRN Administration Headache Hydrocodone Bitart/Acetaminophen 1 tab 09/16/22 16:05 09/18/22 05:52 Hydrocodone/Acetaminophen (*Crx) 7.5-325 Mg Tablet PO 1 tab Q4H PRN Administration Pain Rated 7-10 Hydrocodone Bitart/Acetaminophen 1 tab 09/16/22 16:07 09/17/22 03:09 Hydrocodone/Acetaminophen (*Crx) 5-325 Mg Tablet PO 1 tab Q4H PRN Administration Pain Rated 4-6 Cyclobenzaprine HCl 10 mg 09/17/22 07:37 09/18/22 04:26 Cyclobenzaprine Hcl 10 Mg Tablet PO 10 mg Q6H PRN Administration Muscle Spasm Dextrose 12.5 gm 09/11/22 18:33 Dextrose 50% 25 Gm/50 Ml Syringe IV PUSH PRN PRN Hypoglycemia Protocol Enoxaparin Sodium 40 mg 09/12/22 09:00 09/18/22 08:21 Enoxaparin 40 Mg/0.4 Ml Syringe SUB-Q 40 mg DAILY MARGUERITE Administration Gabapentin 300 mg 09/16/22 17:00 09/18/22 08:19 Gabapentin 300 Mg Capsule PO 300 mg TID MARGUERITE Administration Glucagon 1 mg 09/11/22 18:33 Glucagon For Inj 1 Mg Vial IM PRN PRN Hypoglycemia Protocol Glucose 15 gm 09/11/22 18:33 Glucose Oral Gel 15 Gm Of Glucse In 37.5 Gm Tube PO PRN PRN Hypoglycemia Protocol Dextrose 1,000 mls @ 100 mls/hr 09/11/22 18:33 Dextrose 5% 1,000 Ml IVPB PRN PRN Hypoglycemia Protocol Potassium Chloride/Sodium Chloride 1,000 mls @ 75 mls/hr 09/14/22 12:45 09/18/22 04:25 Kcl 20 Meq/0.45% Ns IV CONT 75 mls/hr .[id number] MARGUERITE Administration Insulin Aspart 4 - 8 units 09/18/22 08:00 09/18/22 09:38 Insulin Aspart (*Bkc) 100 Units/Ml SUB-Q Not Given TIDWM MARGUERITE Protocol Insulin Glargine 40 units 09/13/22 21:00 09/17/22 20:43 Insulin Glargine (*Bkc) 100 Units/Ml SUB-Q 40 units HS MARGUERITE Administration Levofloxacin 750 mg 09/17/22 14:00 09/17/22 14:36 Levofloxacin 75
[2022-09-18] MEDS: HYDROcodone/acetaminophen (*CRX) 5-325 MG TABLET 1 TAB PO (11:45)
[2022-09-18 12:07] LABS: Glucose Point of Care 102 mg/dl (65-105)
--- NOTE | 2022-09-18 12:40 | WPDPN ---
Progress Note: A&P Assessment and Plan (1) Diabetic ketoacidosis: Code(s): E11.10 - Type 2 diabetes mellitus with ketoacidosis without coma Status: Acute Assessment and Plan: improved. Monitor blood sugar. 09/18 interval history:??42 y/o female presented with DKA was admitted in ICU and treated with insulin infusion, her blood sugars have stabilized and now out of ICU and in IMU, on 09/15 patient had? EGD due Anemia, GI suspect most likely erosive esophagitis, and recommended protonix 40mg BID,? patient also has diabetes wound on her left foot and seen by surgery service and wound was debried however surgeon recommended amputation BKA to prevent reoccuring wound and patient had agreed and had BKA POD #2 stats pain still persist, able to do her PT, wants to go home with PT, patient will be seen by surgery service and further recommendation to follow. Patient is a present in the room. (2) Diabetic infection of left foot: Code(s): E11.628 - Type 2 diabetes mellitus with other skin complications; L08.9 - Local infection of the skin and subcutaneous tissue, unspecified Status: Acute Assessment and Plan: Appreciate surgical input. Plan for debrided continue IV antibiotics (3) Cellulitis of left foot: Code(s): L03.116 - Cellulitis of left lower limb Status: Acute Assessment and Plan: As above (4) Acute kidney injury: Code(s): N17.9 - Acute kidney failure, unspecified Status: Acute Assessment and Plan: kidney function improved. Monitor creatinine and electrolytes Subjective Date/time seen: 09/18/22 12:40 Interval history: HPI- Narrative: This is a 42-year-old female with history of gestational diabetes who is being directly admitted to the ICU from the emergency department at the [facility] for further treatment after she was found to be in diabetic ketoacidosis. She is quite ill and is a fair historian and as such some of the following history is supplemented via a review of her electronic medical records as well as discussions with her . She has not been feeling well for several weeks with progressive, generalized weakness and significant thirst. Yesterday she started vomiting and she reports numerous episodes of emesis, too numerous to count. Her found her unresponsive this morning at 11:00 and called 911. On arrival to the ER she was unresponsive to verbal commands but withdrew to noxious stimuli. Blood pressure was stable and she was tachycardic and tachypneic. Labs were significant for WBC count of 27.4, hemoglobin 10.3 sodium 136, potassium 5.7, chloride 101, carbon dioxide < 5, BUN 37, creatinine 1.80, glucose 796, hemoglobin A1c 13.9, lactic acid 0.7. Urine was concentrated and was positive for 3+ protein, 3+ glucose, and 3+ ketones. She tested negative for influenza, RSV, and COVID. ABG showed a pH of 6.93, pCO2 12.0, bicarb 2.5. Head and cervical spine CT showed no acute findings. In the ED she received a total of 3 L IV fluid, an amp of sodium bicarbonate, and she was started on insulin drip. Her mental status improved and she was arousable and following commands prior to transfer. At the time of my evaluation she is alert and oriented. She complains of severe thirst and shortness of breath. Blood pressures are stable but she remains tachycardic and tachypneic. On exam she has wounds on her left foot and swelling and redness the foot.? Wounds have been there for quite some time and she has never had them evaluated before. She was unaware of any discharge and she has no pain in the foot. She has not had a fever to her knowledge but she complains of chills. Her temperature on arrival to the ICU was 90.0. She currently denies headache, neck ache, sinus congestion, sore throat, chest pain, pleuritic pain, cough, abdominal pain, epigastric pain, dysuria, and diarrhea. 09/18 interval history:??42 y/o female pres
[2022-09-18] MEDS: levoFLOXacin 750 MG TABLET PO (13:28)
[2022-09-18 16:55] LABS: Glucose Point of Care 118 mg/dl (65-105)
[2022-09-18 20:05] LABS: Glucose Point of Care 139 mg/dl (65-105)
[2022-09-18] MEDS: INSULIN GLARGINE (*BKC) 100 UNITS/ML 40 UNITS SUB-Q (20:49)
[2022-09-19] VITALS (16 sets, daily range): BP systolic 110–139; BP diastolic 65–75; PULSE 13–109; RESP 12–20; TEMP 36.2–37.1; O2SAT 96–100
[2022-09-19] MEDS: HYDROcodone/acetaminophen (*CRX) 7.5-325 MG TABLET 1 TAB PO ×4 (02:15→17:03)
[2022-09-19] MEDS: GLUCOSE ORAL GEL 15 GM OF GLUCSE IN 37.5 GM TUBE PO ×3 (02:20→07:28)
[2022-09-19 02:26] LABS: Glucose Point of Care 53 mg/dl (65-105)
[2022-09-19 03:13] LABS: Glucose Point of Care 62 mg/dl (65-105)
[2022-09-19 03:13] LABS: Glucose Point of Care 83 mg/dl (65-105)
--- NOTE | 2022-09-19 03:14 | PC.NURSE ---
0244: bs 62 after 1 tube glucose gel; 2nd glucose gel po given. Apple Juice and Jose Elias Crackers Given. 0309: bs 83mg/dl. will reassess per protocol.
[2022-09-19 03:59] LABS: Glucose Point of Care 116 mg/dl (65-105)
[2022-09-19 04:01] LABS: Mean Corpuscular HGB Conc 32.5 g/dl (32-36); Mean Corpuscular Hemoglobin 28.7 pg (26-34); Mean Corpuscular Volume 88.2 fl (80-100); Mean Platelet Volume 8.5 fl (7.4-10.4); Platelet Count Result 515 k/mm3 (150-375); Red Blood Count 2.37 M/mm3 (4.2-5.4); Red Cell Distribution Width 14.6 % (11.5-14.5); White Blood Count 14.1 K/mm3 (4.5-10.0)
[2022-09-19 04:15] LABS: Alanine Aminotransferase 12 U/L (6-35); Albumin Level 2.5 g/dL (3.5-5.1); Alkaline Phosphatase 100 U/L (38-126); Anion Gap 4 mmol/L (8-16); Aspartate Amino Transferase 22 U/L (14-36); Bilirubin,Total 0.1 mg/dL (0.2-1.3); Blood Urea Nitrogen 14 mg/dL (7-17); Calcium 6.5 mg/dL (8.4-10.2); Carbon Dioxide 24 mmol/L (22-30); Chloride 106 mmol/L (98-107); Estimated CRCL calculation 43 ml/min; Estimated Glomerular Filt Rate 28; Glucose 115 mg/dL (65-110); Potassium 3.9 mmol/L (3.4-5.0); Sodium 134 mmol/L (137-145)
[2022-09-19 04:25] LABS: Hematocrit 20.9 % (37.0-47.0); Hemoglobin 6.8 g/dL (12.0-15.0)
[2022-09-19] MEDS: metroNIDAZOLE 250 MG TABLET 500 MG PO ×3 (05:39→21:07)
[2022-09-19] MEDS: CENTRAL LINE FLUSH 10 ML IV PUSH ×3 (05:42→21:07)
[2022-09-19] MEDS: SODIUM CHLORIDE 0.9% IV 250 ML 30 ML IV CONT (07:00)
[2022-09-19] MEDS: TUBING, BLOOD PLUM PUMP TUBING 1 EACH XX (07:00)
[2022-09-19 07:26] LABS: Glucose Point of Care 57 mg/dl (65-105)
[2022-09-19 08:02] LABS: Glucose Point of Care 71 mg/dl (65-105)
[2022-09-19] MEDS: PANTOPRAZOLE SODIUM IV 40 MG VIAL IV PUSH ×2 (08:06→21:06)
[2022-09-19] MEDS: ENOXAPARIN 40 MG/0.4 ML SYRINGE SUB-Q (08:07)
[2022-09-19] MEDS: TOLNAFTATE 1% POWDER 45 GM BTL 1 APPLIC TOPICAL ×2 (08:07→21:05)
[2022-09-19] MEDS: GABAPENTIN 300 MG CAPSULE PO ×3 (08:07→17:03)
[2022-09-19 08:45] LABS: Glucose Point of Care 85 mg/dl (65-105)
--- NOTE | 2022-09-19 09:52 | PM.IMPN ---
Progress Note: A&P Assessment and Plan (1) Diabetic ketoacidosis: Code(s): E11.10 - Type 2 diabetes mellitus with ketoacidosis without coma Status: Acute Assessment and Plan: improved. Monitor blood sugar. 09/19 interval history:??42 y/o female presented with DKA was admitted in ICU and treated with insulin infusion, her blood sugars have stabilized and now out of ICU and in IMU, patient also has diabetes wound on her left foot and seen by surgery service and wound was debrided however surgeon recommended amputation BKA to prevent reoccuring wound and patient had agreed and had BKA POD #2 stats pain still persist, able to do her PT, wants to go home with PT, patient will be seen by surgery service and further recommendation to follow. (2) Diabetic infection of left foot: Code(s): E11.628 - Type 2 diabetes mellitus with other skin complications; L08.9 - Local infection of the skin and subcutaneous tissue, unspecified Status: Acute Assessment and Plan: Appreciate surgical input. debrided continue antibiotics (3) Cellulitis of left foot: Code(s): L03.116 - Cellulitis of left lower limb Status: Acute Assessment and Plan: As above (4) Acute kidney injury: Code(s): N17.9 - Acute kidney failure, unspecified Status: Acute Assessment and Plan: kidney function improved. Monitor creatinine and electrolytes (5) Anemia: Code(s): D64.9 - Anemia, unspecified Status: Acute Assessment and Plan: on 09/15 patient had? EGD due Anemia, GI suspect most likely erosive esophagitis, and recommended protonix 40mg BID,?hemoglobin is 6.8 this morning. Will order 1 unit PRBC. Monitor CBC Subjective Date/time seen: 09/19/22 09:52 Interval history: Patient had hypoglycemic episode this morning so she is feeling a little bit tired. Review of Systems Review of Systems: All systems reviewed & are unremarkable except as noted in HPI and below Exam Narrative: Patient is comfortable, NAD HEENT: eyes are clear and none icteric LUNGS: Normal respiratory effort ABD: Distended Lower extremities: no edema SKIN: nonjaundiced Neuro: grossly intact. Objective Data Vital Signs Vital Signs: Vital Signs - 24 hr 09/18/22 12:00 09/18/22 14:00 09/18/22 16:00 Temperature 97 F L Pulse Rate 109 H 108 H 107 H Respiratory Rate 18 Blood Pressure 147/81 H Pulse Oximetry 99 Oxygen Delivery 09/18/22 19:55 09/18/22 20:00 09/19/22 00:00 Temperature 97.7 F Pulse Rate 107 H 107 H 104 H Respiratory Rate 18 Blood Pressure 142/72 H Pulse Oximetry 100 Oxygen Delivery 09/19/22 04:00 09/19/22 04:45 09/19/22 07:00 Temperature 98 F 98.6 F Pulse Rate 13 L 103 H 100 Respiratory Rate 17 12 Blood Pressure 110/65 120/66 Pulse Oximetry 98 100 Oxygen Delivery 09/19/22 07:03 09/19/22 07:18 09/19/22 08:00 Temperature 98.6 F 98.7 F Pulse Rate 100 102 H 109 H Respiratory Rate 12 14 Blood Pressure 120/66 120/72 Pulse Oximetry 100 100 Oxygen Delivery 09/19/22 08:00 09/19/22 08:18 09/19/22 09:18 Temperature 98.2 F 98.3 F Pulse Rate 109 H 102 H 105 H Respiratory Rate 14 20 14 Blood Pressure 126/71 135/75 Pulse Oximetry 100 97 100 Oxygen Delivery Room Air Intake/Output Intake/Output: Intake & Output 09/16/22 09/17/22 09/18/22 09/19/22 23:59 23:59 23:59 23:59 Intake Total 4550 / 4550 2770 / 2770 3620 / 3620 200 / 200 Output Total 2925 / 2925 2450 / 2450 6300 / 6300 1000 / 1000 Balance 1625 / 1625 320 / 320 -2680 / -2680 -800 / -800 Meds/Results Medications: Active Medications Generic Name Dose Route Start Last Admin Trade Name Freq PRN Reason Stop Dose Admin Acetaminophen 650 mg 09/12/22 07:59 09/12/22 20:08 Acetaminophen 325 Mg Tablet PO 650 mg Q4H PRN Administration Headache Hydrocodone Bitart/Acetaminophen 1 tab 09/16/22 16:05 09/19/22 08:33
[2022-09-19] MEDS: CYCLOBENZAPRINE HCL 10 MG TABLET PO (11:31)
--- NOTE | 2022-09-19 11:35 | PM.PNGS ---
Progress Note: A&P Assessment and Plan (1) Status post below-knee amputation of left lower extremity: Code(s): Z89.512 - Acquired absence of left leg below knee Status: Acute Assessment and Plan: Left BKA stump is healing well. Dressing taken down today and reapplied. Flap looks good. No evidence of wound infection. Continue therapy for transfers. Okay to discharge from hospital when medically stable. Will need to return to the office in 10 to 14 days for wound check and suture removal with Dr. Carreno. Subjective Subjective Date/Time Seen: 09/19/22 11:35 Post Op day: 3 Interval history: Patient is doing well postop day 3. After left below knee amputation. Pain is well controlled with oral pain medications. Otherwise clinically stable. Exam Const: General: comfortable and no acute distress Extrem: Other: Left BKA stump intact with no redness or drainage from the incision line. Posterior flap is well perfused and there is no ischemia of the skin edges. No hematoma or ecchymosis is seen. Swelling is mild. Objective Data Vital Signs Vital Signs: Vital Signs - 24 hr 09/18/22 12:00 09/18/22 14:00 09/18/22 16:00 Temperature 36.1 C L Pulse Rate 109 H 108 H 107 H Respiratory Rate 18 Blood Pressure 147/81 H Pulse Oximetry 99 Oxygen Delivery 09/18/22 19:55 09/18/22 20:00 09/19/22 00:00 Temperature 36.5 C Pulse Rate 107 H 107 H 104 H Respiratory Rate 18 Blood Pressure 142/72 H Pulse Oximetry 100 Oxygen Delivery 09/19/22 04:00 09/19/22 04:45 09/19/22 07:00 Temperature 36.6 C 37.0 C Pulse Rate 13 L 103 H 100 Respiratory Rate 17 12 Blood Pressure 110/65 120/66 Pulse Oximetry 98 100 Oxygen Delivery 09/19/22 07:03 09/19/22 07:18 09/19/22 08:00 Temperature 37.0 C 37.1 C Pulse Rate 100 102 H 109 H Respiratory Rate 12 14 Blood Pressure 120/66 120/72 Pulse Oximetry 100 100 Oxygen Delivery 09/19/22 08:00 09/19/22 08:18 09/19/22 09:18 Temperature 36.8 C 36.8 C Pulse Rate 109 H 102 H 105 H Respiratory Rate 14 20 14 Blood Pressure 126/71 135/75 Pulse Oximetry 100 97 100 Oxygen Delivery Room Air 09/19/22 10:16 09/19/22 10:18 Temperature 36.6 C Pulse Rate 102 H Respiratory Rate 16 Blood Pressure 138/73 Pulse Oximetry 100 100 Oxygen Delivery Room Air Intake/Output Intake/Output: Intake & Output 09/16/22 09/17/22 09/18/22 09/19/22 23:59 23:59 23:59 23:59 Intake Total 4550 2770 3620 910 Output Total 2925 2450 6300 2900 Balance 1626 360 -7488 -5363 Meds/Results Medications: Active Medications Generic Name Dose Route Start Last Admin Trade Name Freq PRN Reason Stop Dose Admin Acetaminophen 650 mg 09/12/22 07:59 09/12/22 20:08 Acetaminophen 325 Mg Tablet PO 650 mg Q4H PRN Administration Headache Hydrocodone Bitart/Acetaminophen 1 tab 09/16/22 16:05 09/19/22 08:33 Hydrocodone/Acetaminophen (*Crx) 7.5-325 Mg Tablet PO 1 tab Q4H PRN Administration Pain Rated 7-10 Hydrocodone Bitart/Acetaminophen 1 tab 09/16/22 16:07 09/18/22 11:45 Hydrocodone/Acetaminophen (*Crx) 5-325 Mg Tablet PO 1 tab Q4H PRN Administration Pain Rated 4-6 Cyclobenzaprine HCl 10 mg 09/17/22 07:37 09/19/22 11:31 Cyclobenzaprine Hcl 10 Mg Tablet PO 10 mg Q6H PRN Administration Muscle Spasm Dextrose 12.5 gm 09/11/22 18:33 Dextrose 50% 25 Gm/50 Ml Syringe IV PUSH PRN PRN Hypoglycemia Protocol Enoxaparin Sodium 40 mg 09/12/22 09:00 09/19/22 08:07 Enoxaparin 40 Mg/0.4 Ml Syringe SUB-Q 40 mg DAILY MARGUERITE Administration Gabapentin 300 mg 09/16/22 17:00 09/19/22 08:07 Gabapentin 300 Mg Capsule PO 300 mg TID MARGUERITE Administration Glucagon 1 mg 09/11/22 18:33 Glucagon For Inj 1 Mg Vial IM PRN PRN Hypoglycemia Protocol Glucose 15 gm 09/11/22 18:33 09/19/22 07:28 Glucose Oral Gel 15 Gm Of Glucse In 37.5 Gm Tube PO 15 g
[2022-09-19 12:11] LABS: Glucose Point of Care 130 mg/dl (65-105)
[2022-09-19] MEDS: levoFLOXacin 750 MG TABLET PO (13:52)
--- NOTE | 2022-09-19 14:44 | PCOTNOTE ---
RN has requested to not see pt for Occupational Therapy today. Per RN, pt has been struggling with low blood sugar, Hgb count, and recent dressing change. RN states that she would like pt to sleep/rest for the rest of the day. Will continue per POC duration/frequency tomorrow.
[2022-09-19 14:59] LABS: Haptoglobin 472 mg/dL (43-212)
[2022-09-19 17:07] LABS: Glucose Point of Care 81 mg/dl (65-105)
[2022-09-19 20:16] LABS: Glucose Point of Care 122 mg/dl (65-105)
[2022-09-19] MEDS: INSULIN GLARGINE (*BKC) 100 UNITS/ML 20 UNITS SUB-Q (21:06)
[2022-09-20] VITALS (9 sets, daily range): BP systolic 138–141; BP diastolic 69–75; PULSE 99–109; RESP 16–18; TEMP 36.4–36.6; O2SAT 98–100
[2022-09-20 02:37] LABS: Glucose Point of Care 94 mg/dl (65-105)
[2022-09-20] MEDS: CENTRAL LINE FLUSH 10 ML IV PUSH ×4 (04:50→20:37)
[2022-09-20 05:10] LABS: Hematocrit 23.3 % (37.0-47.0); Hemoglobin 7.6 g/dL (12.0-15.0); Mean Corpuscular HGB Conc 32.6 g/dl (32-36); Mean Corpuscular Hemoglobin 28.6 pg (26-34); Mean Corpuscular Volume 87.6 fl (80-100); Mean Platelet Volume 8.5 fl (7.4-10.4); Platelet Count Result 546 k/mm3 (150-375); Red Blood Count 2.66 M/mm3 (4.2-5.4); Red Cell Distribution Width 14.8 % (11.5-14.5); White Blood Count 13.6 K/mm3 (4.5-10.0)
[2022-09-20] MEDS: metroNIDAZOLE 250 MG TABLET 500 MG PO ×3 (05:16→20:31)
[2022-09-20] MEDS: HYDROcodone/acetaminophen (*CRX) 7.5-325 MG TABLET 1 TAB PO ×3 (05:17→17:21)
[2022-09-20 05:18] LABS: Anion Gap 4 mmol/L (8-16); Blood Urea Nitrogen 17 mg/dL (7-17); Calcium 6.9 mg/dL (8.4-10.2); Carbon Dioxide 25 mmol/L (22-30); Chloride 107 mmol/L (98-107); Estimated CRCL calculation 39 ml/min; Estimated Glomerular Filt Rate 25; Glucose 72 mg/dL (65-110); Sodium 136 mmol/L (137-145)
[2022-09-20 08:43] LABS: Glucose Point of Care 66 mg/dl (65-105)
[2022-09-20 09:06] LABS: Glucose Point of Care 72 mg/dl (65-105)
[2022-09-20 09:29] LABS: Glucose Point of Care 89 mg/dl (65-105)
[2022-09-20] MEDS: GABAPENTIN 300 MG CAPSULE PO ×3 (10:36→17:21)
[2022-09-20] MEDS: ENOXAPARIN 40 MG/0.4 ML SYRINGE SUB-Q (10:36)
[2022-09-20] MEDS: PANTOPRAZOLE SODIUM IV 40 MG VIAL IV PUSH ×2 (10:36→20:31)
[2022-09-20] MEDS: TOLNAFTATE 1% POWDER 45 GM BTL 1 APPLIC TOPICAL ×2 (10:36→20:36)
--- NOTE | 2022-09-20 10:55 | PCPTNOTE ---
Attempted to see patient at 0837 and patient stated that she did not feel well and that her blood sugar was 66. Therapist told patient that she would come back later. RN notified. Attempted to see patient again at 1053 and RN stated that she just gave patient pain medicine and asked for therapist to come back later.
--- NOTE | 2022-09-20 11:28 | PM.IMPN ---
Progress Note: A&P Assessment and Plan (1) Diabetic ketoacidosis: Code(s): E11.10 - Type 2 diabetes mellitus with ketoacidosis without coma Status: Acute Assessment and Plan: Resolved. Patient blood sugars have been dropping in the morning. Insulin Lantus is on hold. She is on high does correctional insulin which may be too much for her. I believe her acute renal insufficiency may be causing the insulin to linger in the system longer. Will put on low-dose corrections scale (2) Diabetic infection of left foot: Code(s): E11.628 - Type 2 diabetes mellitus with other skin complications; L08.9 - Local infection of the skin and subcutaneous tissue, unspecified Status: Acute Assessment and Plan: Appreciate surgical input. patient also has diabetes wound on her left foot and seen by surgery service and wound was debrided however surgeon recommended amputation BKA to prevent reoccuring wound and patient had agreed and had BKA, able to do her PT, wants to go home with PT, patient will be seen by surgery service and further recommendation to follow. (3) Cellulitis of left foot: Code(s): L03.116 - Cellulitis of left lower limb Status: Acute Assessment and Plan: As above (4) Acute kidney injury: Code(s): N17.9 - Acute kidney failure, unspecified Status: Acute Assessment and Plan: kidney function worsening. Will consult Nephrology (5) Anemia: Code(s): D64.9 - Anemia, unspecified Status: Acute Assessment and Plan: on 09/15 patient had? EGD due Anemia, GI suspect most likely erosive esophagitis, and recommended protonix 40mg BID,?hemoglobin is stable after 1 unit PRBC transfusion Subjective Date/time seen: 09/20/22 11:28 Interval history: Patient states she feels tired. She had another hypoglycemic episode this morning Review of Systems Review of Systems: All systems reviewed & are unremarkable except as noted in HPI and below Exam Narrative: Patient is comfortable, NAD HEENT: eyes are clear and none icteric LUNGS: Normal respiratory effort ABD: Distended Lower extremities: no edema SKIN: nonjaundiced Neuro: grossly intact. Objective Data Vital Signs Vital Signs: Vital Signs - 24 hr 09/19/22 12:00 09/19/22 14:00 09/19/22 16:00 Temperature 97.5 F L Pulse Rate 105 H 109 H 104 H Respiratory Rate 16 Blood Pressure 135/74 Pulse Oximetry 99 Oxygen Delivery 09/19/22 19:41 09/19/22 20:00 09/19/22 20:00 Temperature 97.2 F L Pulse Rate 105 H 104 H Respiratory Rate 17 Blood Pressure 139/73 Pulse Oximetry 96 Oxygen Delivery Room Air 09/20/22 00:00 09/20/22 04:07 09/20/22 04:00 Temperature 97.9 F Pulse Rate 99 109 H 107 H Respiratory Rate 18 Blood Pressure 138/69 Pulse Oximetry 98 Oxygen Delivery 09/20/22 08:00 09/20/22 09:22 Temperature Pulse Rate 103 H Respiratory Rate Blood Pressure Pulse Oximetry Oxygen Delivery Room Air Intake/Output Intake/Output: Intake & Output 09/17/22 09/18/22 09/19/22 09/20/22 23:59 23:59 23:59 23:59 Intake Total 2770 / 2770 3620 / 3620 3010 / 3010 660 / 660 Output Total 2450 / 2450 6300 / 6300 3600 / 3600 2200 / 2200 Balance 320 / 320 -2680 / -2680 -590 / -590 -1540 / -1540 Meds/Results Medications: Active Medications Generic Name Dose Route Start Last Admin Trade Name Benq PRN Reason Stop Dose Admin Acetaminophen 650 mg 09/12/22 07:59 09/12/22 20:08 Acetaminophen 325 Mg Tablet PO 650 mg Q4H PRN Administration Headache Hydrocodone Bitart/Acetaminophen 1 tab 09/16/22 16:05 09/20/22 10:34 Hydrocodone/Acetaminophen (*Crx) 7.5-325 Mg Tablet PO 1 tab Q4H PRN Administration Pain Rated 7-10 Hydrocodone Bitart/Acetaminophen 1 tab 09/16/22 16:07 09/18/22 11:45 Hydrocodone/Acetaminophen (*Crx) 5-325 Mg Tablet PO 1 tab Q4H PRN Administration Pain Rated 4-6
--- NOTE | 2022-09-20 11:50 | PM.CNNEP ---
Assessment and Plan Assessment and plan (1) Acute kidney injury: Code(s): N17.9 - Acute kidney failure, unspecified Status: Acute Assessment and Plan: noted on admission but resolved quickly with aggressive IVF hydration recurred again on 09/16/22 with creatinine up to 1.3mg/dl with progression to 2.20mg/dl by AM labs suspect multifactorial: relative hypotension [particularly with operative intervention (as noted by anesthesia record with her left BKA)] relative anemia fluctuating blood sugar control PPI use recent infectious issues +/- antibiotics however, no critical electrolytes and excellent urine output check urine electrolytes, urine eosinophils, UA/urine culture, and CPK renal ultrasound already done on this admission -- no acute findings follow trend of repeat labs and UOP (2) Status post below-knee amputation of left lower extremity: Code(s): Z89.512 - Acquired absence of left leg below knee Status: Acute Assessment and Plan: done to achieve control of LLE cellulitis/diabetic wounds/progressive skin infection despite previous debridement Surgery following local wound care pain control (3) Anemia: Code(s): D64.9 - Anemia, unspecified Status: Acute Assessment and Plan: melena on presentation s/p EGD with findings of erosive esophagitis thought to have been precipitated by on PPI therapy follow trend of H/H (4) Diabetes: Code(s): E11.9 - Type 2 diabetes mellitus without complications Status: Chronic Assessment and Plan: admitted with DKA which has resolved follow accuchecks glycemic control per hospitalists I will continue to follow the patient with you while she remains hospitalized and make further recommendations during her hospital course. Thank you for allowing me to participate in care this patient. History of Present Illness Reason for Consult Consult date: 09/20/22 Reason for consult: acute renal failure Chief Complaint Chief complaint: DKA History of Present Illness Narrative: The patient is a 42-year-old female with a past medical history as outlined below who was directly admitted to [facility] ICU from the emergency room at [facility] for further evaluation of diabetic ketoacidosis. The patient apparently had not been feeling well for the last several weeks prior to her presentation to the ER at [facility]. She reports progressive and generalized weakness and increase in thirst in association with just not feeling very good. The day prior to admission, she started vomiting and had numerous episodes of emesis. The exact number of times she vomited is unclear but seemed to be aggressively getting worse. On the day of admission, her pay her found the patient unresponsive and called 911 which subsequently led to her transfer to the emergency room at [facility]. Workup and evaluation emergency room at [facility] noted the patient to be unresponsive to verbal commands but did withdraw with noxious stimuli and sternal rub. Her blood pressure was stable but she was tachycardic and tachypneic. Initial labs were noted with a leukocytosis, relative anemia, acute kidney injury in association with mild hyperkalemia and a metabolic acidosis. Her hemoglobin A1c was 13.9 in association with a serum glucose of 796. Her UA was positive for 3+ protein 3+ glucose 3+ ketones but she was negative with regard to influenza, RSV, and covert 19 testing. Her initial ABG showed a pH at 6.93 and subsequent imaging of her head and cervical spine showed no acute findings. She received a total of 3 L of IV fluids, IV bicarbonate, and was initiated on an insulin drip due to the findings concerning for diabetic ketoacidosis and she was subsequently transferred to [facility] ICU for further evaluation and therapy. This
--- NOTE | 2022-09-20 11:50 | P.CONNP_ITS ---
Assessment and Plan Assessment and plan (1) Acute kidney injury: Code(s): N17.9 - Acute kidney failure, unspecified Status: Acute Assessment and Plan: * noted on admission but resolved quickly with aggressive IVF hydration * recurred again on 09/16/22 with creatinine up to 1.3mg/dl with progression to 2.20mg/dl by AM labs * suspect multifactorial: * relative hypotension [particularly with operative intervention (as noted by anesthesia record with her left BKA)] * relative anemia * fluctuating blood sugar control * PPI use * recent infectious issues +/- antibiotics * however, no critical electrolytes and excellent urine output * check urine electrolytes, urine eosinophils, UA/urine culture, and CPK * renal ultrasound already done on this admission -- no acute findings * follow trend of repeat labs and UOP (2) Status post below-knee amputation of left lower extremity: Code(s): Z89.512 - Acquired absence of left leg below knee Status: Acute Assessment and Plan: * done to achieve control of LLE cellulitis/diabetic wounds/progressive skin infection despite previous debridement * Surgery following * local wound care * pain control (3) Anemia: Code(s): D64.9 - Anemia, unspecified Status: Acute Assessment and Plan: * melena on presentation * s/p EGD with findings of erosive esophagitis * thought to have been precipitated by * on PPI therapy * follow trend of H/H (4) Diabetes: Code(s): E11.9 - Type 2 diabetes mellitus without complications Status: Chronic Assessment and Plan: * admitted with DKA which has resolved * follow accuchecks * glycemic control per hospitalists I will continue to follow the patient with you while she remains hospitalized and make further recommendations during her hospital course. Thank you for allowing me to participate in care this patient. History of Present Illness Reason for Consult Consult date: 09/20/22 Reason for consult: acute renal failure Chief Complaint Chief complaint: DKA History of Present Illness Narrative: The patient is a 42-year-old female with a past medical history as outlined below who was directly admitted to [facility] ICU from [place] [facility] [place] further evaluation of diabetic ketoacidosis. The patient apparently had not been feeling well for the last several weeks prior to her presentation to the ER at [facility] She reports progressive and generalized weakness and increase in thirst in association with just not feeling very good. The day prior to admission, she started vomiting and had numerous episodes of emesis. The exact number of times she vomited is unclear but seemed to be aggressively getting worse. On the day of admission, her pay her found the patient unresponsive and called 911 which subsequently led to her transfer to the emergency room at [facility] Workup and evaluation emergency room at [facility] noted the patient to be unresponsive to verbal commands but did withdraw with noxious stimuli and sternal rub. Her blood pressure was stable but she was tachycardic and tachypneic. Initial labs were noted with a leukocytosis, relative anemia, acute kidney injury in association with mild hyperkalemia and a metabolic acidosis. Her hemoglobin A1c was 13.9 in association with a serum glucose of 796. Her UA was positive for 3+ protein 3+ glucose 3+ ketones but she was negative with regard to influenza, RSV, and covert
[2022-09-20 11:51] LABS: Glucose Point of Care 105 mg/dl (65-105)
[2022-09-20] MEDS: levoFLOXacin 750 MG TABLET PO (13:51)
[2022-09-20 16:41] LABS: Glucose Point of Care 104 mg/dl (65-105)
--- NOTE | 2022-09-20 18:06 | PC.NURSE ---
Pt is A&O4 female who has participated and contributed in plan of care. Pt has reported some pain off and on today. Pt has had more pain after working with therapy. Pt was up in chair for several hours and tolerated well. Pt was educated on benefits of [facility] with care coordination. Pt expresses no needs at this time. Pt sugars have been lower today. Will continue to monitor pt.
[2022-09-20 20:54] LABS: Glucose Point of Care 137 mg/dl (65-105)
[2022-09-20 21:35] LABS: Creatinine Urine 20.3 mg/dL; Total Protein Urine Random 22 mg/dL; Ur Ttl Prot Creatinine Ratio 1.08 mg/mg (0-0.20); Urea Random Urine 96 MG/DL
[2022-09-20 21:37] LABS: Sodium Urine Random 41 meq/L
[2022-09-20 21:40] LABS: Appearance Urine Turbid (Clear); Bacteria Urine Rare /hpf; Bilirubin Urine Negative (Negative); Blood Urine Trace (Negative); Color Urine Yellow (Yellow); Glucose Urine UA Negative (Negative); Hyaline Casts Urine Present /lpf; Ketones Urine Negative (Negative); Leukocyte Esterase Ur 3+ LEU/UL (Negative); Nitrate Urine Negative (Negative); Non Pathogenic Casts >20; Protein Urine Trace mg/dL (Negative); RBC Urine >100 /hpf (0-2); Specific Grav Ur 1.005 (1.001-1.035); Squamous Epithelial Cell Urine None seen /hpf (Few); Urobilinogen Urine 0.2 mg/dL (<2.0); WBC Urine >100 /hpf
[2022-09-20 21:41] LABS: Add Urine Microscopic? YES
[2022-09-20 21:45] LABS: Eosinophil Urine None Seen % (None Seen); Urine Eos QC 2nd Tech Confirmed
[2022-09-21] VITALS (9 sets, daily range): BP systolic 133–149; BP diastolic 63–78; PULSE 93–103; RESP 16–18; TEMP 36.2–36.9; O2SAT 97–100
[2022-09-21] MEDS: HYDROcodone/acetaminophen (*CRX) 7.5-325 MG TABLET 1 TAB PO ×3 (00:09→10:29)
[2022-09-21 02:37] LABS: Glucose Point of Care 111 mg/dl (65-105)
[2022-09-21] MEDS: metroNIDAZOLE 250 MG TABLET 500 MG PO (06:00)
[2022-09-21] MEDS: CENTRAL LINE FLUSH 10 ML IV PUSH ×3 (06:04→21:15)
[2022-09-21] MEDS: ALTEPLASE 2 MG VIAL (CATHFLO) IV PUSH ×3 (06:27→10:24)
[2022-09-21 06:46] LABS: Alanine Aminotransferase 17 U/L (6-35); Albumin Level 2.8 g/dL (3.5-5.1); Alkaline Phosphatase 255 U/L (38-126); Anion Gap 5 mmol/L (8-16); Aspartate Amino Transferase 40 U/L (14-36); Bilirubin,Total 0.3 mg/dL (0.2-1.3); Blood Urea Nitrogen 23 mg/dL (7-17); Calcium 7.2 mg/dL (8.4-10.2); Carbon Dioxide 24 mmol/L (22-30); Chloride 108 mmol/L (98-107); Creatine Kinase 103 U/L (30-135); Estimated CRCL calculation 38 ml/min; Estimated Glomerular Filt Rate 23; Glucose 101 mg/dL (65-110); Potassium 4.1 mmol/L (3.4-5.0); Sodium 137 mmol/L (137-145)
[2022-09-21 06:56] LABS: Glucose Point of Care 99 mg/dl (65-105)
[2022-09-21] MEDS: PANTOPRAZOLE SODIUM IV 40 MG VIAL IV PUSH (08:23)
[2022-09-21] MEDS: ENOXAPARIN 40 MG/0.4 ML SYRINGE SUB-Q (08:23)
[2022-09-21] MEDS: TOLNAFTATE 1% POWDER 45 GM BTL 1 APPLIC TOPICAL ×2 (08:24→21:15)
[2022-09-21] MEDS: GABAPENTIN 300 MG CAPSULE PO ×3 (08:24→16:30)
[2022-09-21 08:54] LABS: Hematocrit 24.5 % (37.0-47.0); Hemoglobin 7.7 g/dL (12.0-15.0); Mean Corpuscular HGB Conc 31.4 g/dl (32-36); Mean Corpuscular Hemoglobin 28.1 pg (26-34); Mean Corpuscular Volume 89.4 fl (80-100); Mean Platelet Volume 8.5 fl (7.4-10.4); Platelet Count Result 628 k/mm3 (150-375); Red Blood Count 2.74 M/mm3 (4.2-5.4); Red Cell Distribution Width 14.7 % (11.5-14.5); White Blood Count 12.4 K/mm3 (4.5-10.0)
--- NOTE | 2022-09-21 10:01 | PC.NURSE ---
Called pharmacy to get a second dose of cathflo, notified of the delay in starting of the fluids due to cathflo. okayed.
--- NOTE | 2022-09-21 10:17 | PCNWS ---
Weekly nutritional screen. Patient is tolerating current Diabetic diet with adequate intake at 100% of meals. Has been educated on diabetic diet. No weight loss reported. Glucose WNL. No nutritional needs at this time.
--- NOTE | 2022-09-21 10:43 | PM.IMPN ---
Progress Note: A&P Assessment and Plan (1) Diabetic ketoacidosis: Code(s): E11.10 - Type 2 diabetes mellitus with ketoacidosis without coma Status: Acute Assessment and Plan: Resolved. Patient blood sugars have been dropping in the morning. Insulin Lantus is on hold. Continue on low-dose corrections scale (2) Diabetic infection of left foot: Code(s): E11.628 - Type 2 diabetes mellitus with other skin complications; L08.9 - Local infection of the skin and subcutaneous tissue, unspecified Status: Acute Assessment and Plan: Appreciate surgical input. patient also has diabetes wound on her left foot and seen by surgery service and wound was debrided however surgeon recommended amputation BKA to prevent reoccuring wound and patient had agreed and had BKA, able to do her PT, wants to go home with PT, patient will be seen by surgery service and further recommendation to follow. (3) Cellulitis of left foot: Code(s): L03.116 - Cellulitis of left lower limb Status: Acute Assessment and Plan: As above (4) Acute kidney injury: Code(s): N17.9 - Acute kidney failure, unspecified Status: Acute Assessment and Plan: kidney function worsening. Will consult Nephrology. Will start on IV fluids. Monitor BMP (5) Anemia: Code(s): D64.9 - Anemia, unspecified Status: Acute Assessment and Plan: on 09/15 patient had? EGD due Anemia, GI suspect most likely erosive esophagitis, and recommended protonix 40mg BID,? Will change to oral Protonix from IV hemoglobin is stable after 1 unit PRBC transfusion Subjective Date/time seen: 09/21/22 10:43 Interval history: Patient states she had a better morning today since she was not hypoglycemic Review of Systems Review of Systems: All systems reviewed & are unremarkable except as noted in HPI and below Exam Narrative: Patient is comfortable, NAD HEENT: eyes are clear and none icteric LUNGS: Normal respiratory effort ABD: Distended Lower extremities: no edema SKIN: nonjaundiced Neuro: grossly intact. Objective Data Vital Signs Vital Signs: Vital Signs - 24 hr 09/20/22 12:00 09/20/22 14:16 09/20/22 16:00 Temperature 97.6 F Pulse Rate 101 H 99 102 H Respiratory Rate 16 Blood Pressure 140/73 Pulse Oximetry 100 Oxygen Delivery 09/20/22 21:04 09/20/22 20:00 09/20/22 20:00 Temperature 97.6 F Pulse Rate 99 101 H 99 Respiratory Rate 16 16 Blood Pressure 141/75 H Pulse Oximetry 100 100 Oxygen Delivery Room Air 09/21/22 00:00 09/21/22 04:00 09/21/22 06:56 Temperature 97.6 F Pulse Rate 103 H 97 94 Respiratory Rate 16 Blood Pressure 144/78 H Pulse Oximetry 100 Oxygen Delivery 09/21/22 08:00 09/21/22 08:00 Temperature Pulse Rate 93 Respiratory Rate Blood Pressure Pulse Oximetry Oxygen Delivery Room Air Intake/Output Intake/Output: Intake & Output 09/18/22 09/19/22 09/20/22 09/21/22 23:59 23:59 23:59 23:59 Intake Total 3620 / 3620 3010 / 3010 1140 / 1140 1140 / 1140 Output Total 6300 / 6300 3600 / 3600 4200 / 4200 3440 / 3440 Balance -2680 / -2680 -590 / -590 -3060 / -3060 -2300 / -2300 Meds/Results Medications: Active Medications Generic Name Dose Route Start Last Admin Trade Name Freq PRN Reason Stop Dose Admin Acetaminophen 650 mg 09/12/22 07:59 09/12/22 20:08 Acetaminophen 325 Mg Tablet PO 650 mg Q4H PRN Administration Headache Hydrocodone Bitart/Acetaminophen 1 tab 09/16/22 16:05 09/21/22 10:29 Hydrocodone/Acetaminophen (*Crx) 7.5-325 Mg Tablet PO 1 tab Q4H PRN Administration Pain Rated 7-10 Hydrocodone Bitart/Acetaminophen 1 tab 09/16/22 16:07 09/18/22 11:45 Hydrocodone/Acetaminophen (*Crx) 5-325 Mg Tablet PO 1 tab Q4H PRN Administration Pain Rated 4-6 Alteplase, Recombinant 2 mg 09/21/22 05:55 09/21/22 10:24 Alteplase 2 Mg Vial (Cathflo)
--- NOTE | 2022-09-21 11:06 | PM.PNGS ---
Progress Note: A&P Assessment and Plan (1) Status post below-knee amputation of left lower extremity: Code(s): Z89.512 - Acquired absence of left leg below knee Status: Acute Assessment and Plan: S/p left BKA with stump healing well. No evidence of wound infection. Continue winston wrap for compression and elevate left lower extremity when at rest. Plan to go to [facility] on discharge for continued therapy and wound care. Okay from our standpoint to discharge when medically stable. F/u with Dr. Carreno in 10 to 14 days for wound check and suture removal. Plan I have discussed the patient's case and plan of care with Dr. Juan. Subjective Subjective Date/Time Seen: 09/21/22 11:06 Post Op day: 5 (Left BKA) Patient reports: tolerating a regular diet and afebrile Interval history: Patient doing well today. No new complaints. Reports some incisional pain and soreness that has been controlled with [place]. Plan to go to [facility] on discharge. Exam Narrative: Left BKA stump dressing removed. Incision is dry and skin edges approximated with sutures intact. No erythema or drainage. The flap appears healthy without any ischemic skin changes. Mild distal swelling, but no proximal swelling. Objective Data Vital Signs Vital Signs: Vital Signs - 24 hr 09/20/22 12:00 09/20/22 14:16 09/20/22 16:00 Temperature 97.6 F Pulse Rate 101 H 99 102 H Respiratory Rate 16 Blood Pressure 140/73 Pulse Oximetry 100 Oxygen Delivery 09/20/22 21:04 09/20/22 20:00 09/20/22 20:00 Temperature 97.6 F Pulse Rate 99 101 H 99 Respiratory Rate 16 16 Blood Pressure 141/75 H Pulse Oximetry 100 100 Oxygen Delivery Room Air 09/21/22 00:00 09/21/22 04:00 09/21/22 06:56 Temperature 97.6 F Pulse Rate 103 H 97 94 Respiratory Rate 16 Blood Pressure 144/78 H Pulse Oximetry 100 Oxygen Delivery 09/21/22 08:00 09/21/22 08:00 Temperature Pulse Rate 93 Respiratory Rate Blood Pressure Pulse Oximetry Oxygen Delivery Room Air Intake/Output Intake/Output: Intake & Output 09/18/22 09/19/22 09/20/22 09/21/22 23:59 23:59 23:59 23:59 Intake Total 3620 3010 1140 1140 Output Total 6300 3608 4202 3440 [facility] -1760 -132 -3060 -7930 Meds/Results Medications: Active Medications Generic Name Dose Route Start Last Admin Trade Name Freq PRN Reason Stop Dose Admin Acetaminophen 650 mg 09/12/22 07:59 09/12/22 20:08 Acetaminophen 325 Mg Tablet PO 650 mg Q4H PRN Administration Headache Hydrocodone Bitart/Acetaminophen 1 tab 09/16/22 16:05 09/21/22 10:29 Hydrocodone/Acetaminophen (*Crx) 7.5-325 Mg Tablet PO 1 tab Q4H PRN Administration Pain Rated 7-10 Hydrocodone Bitart/Acetaminophen 1 tab 09/16/22 16:07 09/18/22 11:45 Hydrocodone/Acetaminophen (*Crx) 5-325 Mg Tablet PO 1 tab Q4H PRN Administration Pain Rated 4-6 Alteplase, Recombinant 2 mg 09/21/22 05:55 09/21/22 10:24 Alteplase 2 Mg Vial (Cathflo) IV PUSH 2 mg ONCE PRN Administration Line Occlusion Cyclobenzaprine HCl 10 mg 09/17/22 07:37 09/19/22 11:31 Cyclobenzaprine Hcl 10 Mg Tablet PO 10 mg Q6H PRN Administration Muscle Spasm Dextrose 12.5 gm 09/11/22 18:33 Dextrose 50% 25 Gm/50 Ml Syringe IV PUSH PRN PRN Hypoglycemia Protocol Enoxaparin Sodium 40 mg 09/12/22 09:00 09/21/22 08:23 Enoxaparin 40 Mg/0.4 Ml Syringe SUB-Q 40 mg DAILY MARGUERITE Administration Gabapentin 300 mg 09/16/22 17:00 09/21/22 08:24 Gabapentin 300 Mg Capsule PO 300 mg TID MARGUERITE Administration Glucagon 1 mg 09/11/22 18:33 Glucagon For Inj 1 Mg Vial IM PRN PRN Hypoglycemia Protocol Glucose 15 gm 09/11/22 18:33 09/19/22 07:28 Glucose Oral Gel 15 Gm Of Glucse In 37.5 Gm Tube PO 15 gm PRN PRN Administration Hypoglycemia Protocol Dextrose 1,000 mls @ 100 mls/hr 09/11/22 18:33 Dextrose 5% 1,00
--- NOTE | 2022-09-21 11:13 | P.PNNP_ITS ---
Progress Note: A&P Assessment and Plan (1) Acute kidney injury: Code(s): N17.9 - Acute kidney failure, unspecified Status: Acute Assessment and Plan: * noted on admission but resolved quickly with aggressive IVF hydration * recurred again on 09/16/22 with creatinine up to 1.3mg/dl with progression to 2.20mg/dl; now 2.3mg/dl * suspect multifactorial: * relative hypotension [particularly with operative intervention (as noted by anesthesia record with her left BKA)] * relative anemia * fluctuating blood sugar control * PPI use * recent infectious issues +/- antibiotics * however, no critical electrolytes and excellent urine output * evaluation to date: * normal renal ultrasound * urine electrolytes non-prerenal * urine eosinophils negative * CPK normal * possible peak/plateau of creatinine at 2.3mg/dl (?) * follow trend of repeat labs and UOP (2) Status post below-knee amputation of left lower extremity: Code(s): Z89.512 - Acquired absence of left leg below knee Status: Acute Assessment and Plan: * done to achieve control of LLE cellulitis/diabetic wounds/progressive skin infection despite previous debridement * Surgery following * local wound care * pain control (3) Anemia: Code(s): D64.9 - Anemia, unspecified Status: Acute Assessment and Plan: * melena on presentation * s/p EGD with findings of erosive esophagitis * thought to have been precipitated by * on PPI therapy * follow trend of H/H (4) Diabetes: Code(s): E11.9 - Type 2 diabetes mellitus without complications Status: Chronic Assessment and Plan: * admitted with DKA which has resolved * follow accuchecks * glycemic control per hospitalists Will continue to follow. Subjective Date/time seen: 09/21/22 11:13 Interval history: Follow-up for acute kidney injury/acute renal failure. Continues to do well at the time of my visit; rate of rise in creatinine seems to be slowing with stable electrolytes and excellent urine output; no other acute complaints voiced. Exam Narrative: General: WD/WN male in NAD Heart: normal S1 and S2; no rub Lungs: clear to auscultation Abdomen: soft, nontender, nondistended, positive bowel sounds Extremities: no cyanosis or clubbing; no edema; s/p left BKA Skin: warm and dry Objective Data Vital Signs Vital Signs: Vital Signs Temp Pulse Resp BP Pulse Ox O2 Del Method 09/21/22 08:00 93 09/21/22 08:00 Room Air 09/21/22 06:56 97.6 F 94 16 144/78 H 100 09/21/22 04:00 97 09/21/22 00:00 103 H 09/20/22 20:00 99 16 100 Room Air 09/20/22 20:00 101 H 09/20/22 21:04 97.6 F 99 16 141/75 H 100 09/20/22 16:00 102 H 09/20/22 14:16 97.6 F 99 16 140/73 100 Intake/Output Intake/Output: Intake & Output 09/18/22 09/19/22 09/20/22 09/21/22 23:59 23:59 23:59 23:59 Intake Total 3620 3010 1140 1140 Output Total 6300 3600 4200 3440 Balance -2680 -590 -3060 -7700 Meds/Results Medications: Active Medications Generic Name Dose Route Start Last Admin Trade Name Jairo Kirkpatrick
--- NOTE | 2022-09-21 11:13 | PM.PNNEP ---
Progress Note: A&P Assessment and Plan (1) Acute kidney injury: Code(s): N17.9 - Acute kidney failure, unspecified Status: Acute Assessment and Plan: noted on admission but resolved quickly with aggressive IVF hydration recurred again on 09/16/22 with creatinine up to 1.3mg/dl with progression to 2.20mg/dl; now 2.3mg/dl suspect multifactorial: relative hypotension [particularly with operative intervention (as noted by anesthesia record with her left BKA)] relative anemia fluctuating blood sugar control PPI use recent infectious issues +/- antibiotics however, no critical electrolytes and excellent urine output evaluation to date: normal renal ultrasound urine electrolytes non-prerenal urine eosinophils negative CPK normal possible peak/plateau of creatinine at 2.3mg/dl (?) follow trend of repeat labs and UOP (2) Status post below-knee amputation of left lower extremity: Code(s): Z89.512 - Acquired absence of left leg below knee Status: Acute Assessment and Plan: done to achieve control of LLE cellulitis/diabetic wounds/progressive skin infection despite previous debridement Surgery following local wound care pain control (3) Anemia: Code(s): D64.9 - Anemia, unspecified Status: Acute Assessment and Plan: melena on presentation s/p EGD with findings of erosive esophagitis thought to have been precipitated by on PPI therapy follow trend of H/H (4) Diabetes: Code(s): E11.9 - Type 2 diabetes mellitus without complications Status: Chronic Assessment and Plan: admitted with DKA which has resolved follow accuchecks glycemic control per hospitalists Will continue to follow. Subjective Date/time seen: 09/21/22 11:13 Interval history: Follow-up for acute kidney injury/acute renal failure. Continues to do well at the time of my visit; rate of rise in creatinine seems to be slowing with stable electrolytes and excellent urine output; no other acute complaints voiced. Exam Narrative: General: WD/WN male in NAD Heart: normal S1 and S2; no rub Lungs: clear to auscultation Abdomen: soft, nontender, nondistended, positive bowel sounds Extremities: no cyanosis or clubbing; no edema; s/p left BKA Skin: warm and dry Objective Data Vital Signs Vital Signs: Vital Signs Temp Pulse Resp BP Pulse Ox O2 Del Method 09/21/22 08:00 93 09/21/22 08:00 Room Air 09/21/22 06:56 97.6 F 94 16 144/78 H 100 09/21/22 04:00 97 09/21/22 00:00 103 H 09/20/22 20:00 99 16 100 Room Air 09/20/22 20:00 101 H 09/20/22 21:04 97.6 F 99 16 141/75 H 100 09/20/22 16:00 102 H 09/20/22 14:16 97.6 F 99 16 140/73 100 Intake/Output Intake/Output: Intake & Output 09/18/22 09/19/22 09/20/22 09/21/22 23:59 23:59 23:59 23:59 Intake Total 3620 3010 1140 1140 Output Total 6300 3600 4200 3440 Balance -2680 -590 -3060 -2300 Meds/Results Medications: Active Medications Generic Name Dose Route Start Last Admin Trade Name Freq PRN Reason Stop Dose Admin Acetaminophen 650 mg 09/12/22 07:59 09/12/22 20:08 Acetaminophen 325 Mg Tablet PO 650 mg Q4H PRN Administration Headache Hydrocodone Bitart/Acetaminophen 1 tab 09/16/22 16:05 09/21/22 10:29 Hydrocodone/Acetaminophen (*Crx) 7.5-325 Mg Tablet PO 1 tab Q4H PRN Administration Pain Rated 7-10 Hydrocodone Bitart/Acetaminophen 1 tab 09/16/22 16:07 09/18/22 11:45 Hydrocodone/Acetaminophen (*Crx) 5-325 Mg Tablet PO 1 tab Q4H PRN Administration Pain Rated 4-6 Alteplase, Recombinant 2 mg 09/21/22 05:55 09/21/22 10:24 Alteplase 2 Mg Vial (Cathflo) IV PUSH 2 mg ONCE PRN Administration Line Occlusion Cyclobenzaprine HCl 10 mg 09/17/22 07:37 09/19/22 11:31 Cyclobenzaprine Hcl 10 Mg Tablet PO 10 mg Q6H PRN Administration
[2022-09-21 11:39] LABS: Glucose Point of Care 128 mg/dl (65-105)
[2022-09-21] MEDS: SODIUM CHLORIDE 0.9% IV 1,000 ML 100 ML IV CONT ×2 (13:27→21:39)
[2022-09-21 17:15] LABS: Glucose Point of Care 211 mg/dl (65-105)
[2022-09-21] MEDS: INSULIN ASPART (*BKC) 100 UNITS/ML SUB-Q (17:24)
[2022-09-21 20:55] LABS: Glucose Point of Care 253 mg/dl (65-105)
[2022-09-21] MEDS: CYCLOBENZAPRINE HCL 10 MG TABLET PO (23:46)
[2022-09-22] VITALS: PULSE 94
[2022-09-22 04:00] VITALS: PULSE 105
[2022-09-22 04:26] VITALS: BP 137/71; PULSE 98; RESP 16; TEMP 36.7; O2SAT 97
[2022-09-22 04:33] LABS: Anion Gap 5 mmol/L (8-16); Blood Urea Nitrogen 22 mg/dL (7-17); Carbon Dioxide 24 mmol/L (22-30); Chloride 107 mmol/L (98-107); Estimated CRCL calculation 44 ml/min; Estimated Glomerular Filt Rate 28; Glucose 213 mg/dL (65-110); Sodium 136 mmol/L (137-145)
[2022-09-22] MEDS: CENTRAL LINE FLUSH 10 ML IV PUSH ×2 (06:52→14:38)
[2022-09-22 08:00] VITALS: PULSE 91; PULSE 97; RESP 18; O2SAT 100
[2022-09-22] MEDS: ENOXAPARIN 40 MG/0.4 ML SYRINGE SUB-Q (08:04)
[2022-09-22] MEDS: PANTOPRAZOLE 40 MG TABLET PO (08:04)
[2022-09-22] MEDS: GABAPENTIN 300 MG CAPSULE PO ×2 (08:04→12:07)
[2022-09-22] MEDS: HYDROcodone/acetaminophen (*CRX) 7.5-325 MG TABLET 1 TAB PO ×3 (08:04→17:11)
[2022-09-22] MEDS: TOLNAFTATE 1% POWDER 45 GM BTL 1 APPLIC TOPICAL (08:05)
[2022-09-22] MEDS: SODIUM CHLORIDE 0.9% IV 1,000 ML 100 ML IV CONT (08:05)
[2022-09-22 08:13] LABS: Glucose Point of Care 167 mg/dl (65-105)
[2022-09-22 12:00] VITALS: PULSE 94
[2022-09-22] MEDS: INSULIN ASPART (*BKC) 100 UNITS/ML SUB-Q (12:08)
[2022-09-22 12:09] LABS: Glucose Point of Care 210 mg/dl (65-105)
--- NOTE | 2022-09-22 12:10 | PM.PNNEP ---
Progress Note: A&P Assessment and Plan (1) Acute kidney injury: Code(s): N17.9 - Acute kidney failure, unspecified Status: Acute Assessment and Plan: improvement noted by labs this AM (09/22/22) noted on admission but resolved quickly with aggressive IVF hydration recurred again on 09/16/22 with creatinine up to 1.3mg/dl with progression to 2.20mg/dl; now 2.3mg/dl suspect multifactorial: relative hypotension [particularly with operative intervention (as noted by anesthesia record with her left BKA)] relative anemia fluctuating blood sugar control PPI use recent infectious issues +/- antibiotics however, no critical electrolytes and excellent urine output evaluation to date: normal renal ultrasound urine electrolytes non-prerenal urine eosinophils negative CPK normal peak/plateau of creatinine at 2.3mg/dl follow trend of repeat labs and UOP (2) Status post below-knee amputation of left lower extremity: Code(s): Z89.512 - Acquired absence of left leg below knee Status: Acute Assessment and Plan: done to achieve control of LLE cellulitis/diabetic wounds/progressive skin infection despite previous debridement Surgery following local wound care pain control (3) Anemia: Code(s): D64.9 - Anemia, unspecified Status: Acute Assessment and Plan: melena on presentation s/p EGD with findings of erosive esophagitis thought to have been precipitated by on PPI therapy follow trend of H/H (4) Diabetes: Code(s): E11.9 - Type 2 diabetes mellitus without complications Status: Chronic Assessment and Plan: admitted with DKA which has resolved follow accuchecks glycemic control per hospitalists Will continue to follow. Subjective Date/time seen: 09/22/22 12:10 Interval history: Follow-up for acute kidney injury/acute renal failure. Renal function doing better by AM labs and continues to have stability in electrolytes with good urine output; no other acute issues/complaints at this time; no further hypoglycemic episodes; no apparent distress noted. Exam Narrative: General: WD/WN male in NAD Heart: normal S1 and S2; no rub Lungs: clear to auscultation Abdomen: soft, nontender, nondistended, positive bowel sounds Extremities: no cyanosis or clubbing; no edema; s/p left BKA Skin: warm and intact Objective Data Vital Signs Vital Signs: Vital Signs Temp Pulse Resp BP Pulse Ox O2 Del Method 09/22/22 12:00 94 09/22/22 08:00 91 09/22/22 08:00 97 18 100 Room Air 09/22/22 14:31 98.0 F 97 18 166/82 H 100 09/22/22 04:00 105 H 09/22/22 04:26 98.1 F 98 16 137/71 97 09/22/22 00:00 94 09/21/22 20:00 97 09/21/22 20:01 98.4 F 96 16 149/73 H 97 Intake/Output Intake/Output: Intake & Output 09/19/22 09/20/22 09/21/22 09/22/22 23:59 23:59 23:59 23:59 Intake Total 3010 1140 3670 2910 Output Total 3600 4200 5090 3500 Balance -590 -3060 -1420 -590 Meds/Results Medications: Active Medications Generic Name Dose Route Start Last Admin Trade Name Freq PRN Reason Stop Dose Admin Acetaminophen 650 mg 09/12/22 07:59 09/12/22 20:08 Acetaminophen 325 Mg Tablet PO 650 mg Q4H PRN Administration Headache Hydrocodone Bitart/Acetaminophen 1 tab 09/16/22 16:05 09/22/22 12:07 Hydrocodone/Acetaminophen (*Crx) 7.5-325 Mg Tablet PO 1 tab Q4H PRN Administration Pain Rated 7-10 Hydrocodone Bitart/Acetaminophen 1 tab 09/16/22 16:07 09/18/22 11:45 Hydrocodone/Acetaminophen (*Crx) 5-325 Mg Tablet PO 1 tab Q4H PRN Administration Pain Rated 4-6 Alteplase, Recombinant 2 mg 09/21/22 05:55 09/21/22 10:24 Alteplase 2 Mg Vial (Cathflo) IV PUSH 2 mg ONCE PRN Administration Line Occlusion Cyclobenzaprine HCl 10 mg 09/17/22 07:37 09/21/22 23:46 Cyclobenzaprine Hcl 10 Mg Tablet PO 10
--- NOTE | 2022-09-22 12:10 | P.PNNP_ITS ---
Progress Note: A&P Assessment and Plan (1) Acute kidney injury: Code(s): N17.9 - Acute kidney failure, unspecified Status: Acute Assessment and Plan: * improvement noted by labs this AM (09/22/22) * noted on admission but resolved quickly with aggressive IVF hydration * recurred again on 09/16/22 with creatinine up to 1.3mg/dl with progression to 2.20mg/dl; now 2.3mg/dl * suspect multifactorial: * relative hypotension [particularly with operative intervention (as noted by anesthesia record with her left BKA)] * relative anemia * fluctuating blood sugar control * PPI use * recent infectious issues +/- antibiotics * however, no critical electrolytes and excellent urine output * evaluation to date: * normal renal ultrasound * urine electrolytes non-prerenal * urine eosinophils negative * CPK normal * peak/plateau of creatinine at 2.3mg/dl * follow trend of repeat labs and UOP (2) Status post below-knee amputation of left lower extremity: Code(s): Z89.512 - Acquired absence of left leg below knee Status: Acute Assessment and Plan: * done to achieve control of LLE cellulitis/diabetic wounds/progressive skin infection despite previous debridement * Surgery following * local wound care * pain control (3) Anemia: Code(s): D64.9 - Anemia, unspecified Status: Acute Assessment and Plan: * melena on presentation * s/p EGD with findings of erosive esophagitis * thought to have been precipitated by * on PPI therapy * follow trend of H/H (4) Diabetes: Code(s): E11.9 - Type 2 diabetes mellitus without complications Status: Chronic Assessment and Plan: * admitted with DKA which has resolved * follow accuchecks * glycemic control per hospitalists Will continue to follow. Subjective Date/time seen: 09/22/22 12:10 Interval history: Follow-up for acute kidney injury/acute renal failure. Renal function doing better by AM labs and continues to have stability in electrolytes with good urine output; no other acute issues/complaints at this time; no further hypoglycemic episodes; no apparent distress noted. Exam Narrative: General: WD/WN male in NAD Heart: normal S1 and S2; no rub Lungs: clear to auscultation Abdomen: soft, nontender, nondistended, positive bowel sounds Extremities: no cyanosis or clubbing; no edema; s/p left BKA Skin: warm and intact Objective Data Vital Signs Vital Signs: Vital Signs Temp Pulse Resp BP Pulse Ox O2 Del Method 09/22/22 12:00 94 09/22/22 08:00 91 09/22/22 08:00 97 18 100 Room Air 09/22/22 14:31 98.0 F 97 18 166/82 H 100 09/22/22 04:00 105 H 09/22/22 04:26 98.1 F 98 16 137/71 97 09/22/22 00:00 94 09/21/22 20:00 97 09/21/22 20:01 98.4 F 96 16 149/73 H 97 Intake/Output Intake/Output: Intake & Output 09/19/22 09/20/22 09/21/22 09/22/22 23:59 23:59 23:59 23:59 Intake Total 3010 1140 3670 2910 Output Total 3600 4200 5090 3500 Balance -590 -3060 -1420 -590 Meds/Results Medications: Active Medications Generic Name Dose Route Start Last Admin
--- NOTE | 2022-09-22 12:59 | PM.PNGS ---
Progress Note: A&P Assessment and Plan (1) Status post below-knee amputation of left lower extremity: Code(s): Z89.512 - Acquired absence of left leg below knee Status: Acute Assessment and Plan: S/p left BKA with stump healing well. Will have wound care nurses bring a stump sock for compression and stop using the [place] wraps. [facility] discharge for continued therapy and wound care. Okay from our standpoint to discharge when medically stable. F/u with Dr. Carreno in 10 to 14 days for wound check and suture removal. Plan I have discussed the patient's case and plan of care with Dr. Carreno. Subjective Subjective Date/Time Seen: 09/22/22 12:59 Post Op day: 6 (Left BKA) Patient reports: no new complaints and afebrile Interval history: Patient doing well. No new complaints. No acute events overnight. Feels the swelling in her left lower extremity has improved. Review of Systems Review of Systems: ROS unchanged Exam Narrative: Left BKA with dressing dry and intact, minimal proximal swelling Const: General: no acute distress Orientation/consciousness: patient oriented x3 Objective Data Vital Signs Vital Signs: Vital Signs - 24 hr 09/21/22 13:59 09/21/22 16:00 09/21/22 20:01 Temperature 97.1 F L 98.4 F Pulse Rate 99 97 96 Respiratory Rate 18 16 Blood Pressure 133/63 149/73 H Pulse Oximetry 99 97 09/21/22 20:00 09/22/22 00:00 09/22/22 04:26 Temperature 98.1 F Pulse Rate 97 94 98 Respiratory Rate 16 Blood Pressure 137/71 Pulse Oximetry 97 09/22/22 04:00 Temperature Pulse Rate 105 H Respiratory Rate Blood Pressure Pulse Oximetry Intake/Output Intake/Output: Intake & Output 09/19/22 09/20/22 09/21/22 09/22/22 23:59 23:59 23:59 23:59 Intake Total 3010 1140 3670 1470 Output Total 3600 4200 5090 2350 Balance -590 -3060 -1420 -880 Meds/Results Medications: Active Medications Generic Name Dose Route Start Last Admin Trade Name Freq PRN Reason Stop Dose Admin Acetaminophen 650 mg 09/12/22 07:59 09/12/22 20:08 Acetaminophen 325 Mg Tablet PO 650 mg Q4H PRN Administration Headache Hydrocodone Bitart/Acetaminophen 1 tab 09/16/22 16:05 09/22/22 12:07 Hydrocodone/Acetaminophen (*Crx) 7.5-325 Mg Tablet PO 1 tab Q4H PRN Administration Pain Rated 7-10 Hydrocodone Bitart/Acetaminophen 1 tab 09/16/22 16:07 09/18/22 11:45 Hydrocodone/Acetaminophen (*Crx) 5-325 Mg Tablet PO 1 tab Q4H PRN Administration Pain Rated 4-6 Alteplase, Recombinant 2 mg 09/21/22 05:55 09/21/22 10:24 Alteplase 2 Mg Vial (Cathflo) IV PUSH 2 mg ONCE PRN Administration Line Occlusion Cyclobenzaprine HCl 10 mg 09/17/22 07:37 09/21/22 23:46 Cyclobenzaprine Hcl 10 Mg Tablet PO 10 mg Q6H PRN Administration Muscle Spasm Dextrose 12.5 gm 09/11/22 18:33 Dextrose 50% 25 Gm/50 Ml Syringe IV PUSH PRN PRN Hypoglycemia Protocol Enoxaparin Sodium 40 mg 09/12/22 09:00 09/22/22 08:04 Enoxaparin 40 Mg/0.4 Ml Syringe SUB-Q 40 mg DAILY MARGUERITE Administration Gabapentin 300 mg 09/16/22 17:00 09/22/22 12:07 Gabapentin 300 Mg Capsule PO 300 mg TID MARGUERITE Administration Glucagon 1 mg 09/11/22 18:33 Glucagon For Inj 1 Mg Vial IM PRN PRN Hypoglycemia Protocol Glucose 15 gm 09/11/22 18:33 09/19/22 07:28 Glucose Oral Gel 15 Gm Of Glucse In 37.5 Gm Tube PO 15 gm PRN PRN Administration Hypoglycemia Protocol Dextrose 1,000 mls @ 100 mls/hr 09/11/22 18:33 Dextrose 5% 1,000 Ml IVPB PRN PRN Hypoglycemia Protocol Sodium Chloride 1,000 mls @ 100 mls/hr 09/21/22 08:25 09/22/22 08:05 Normal Saline Iv IV CONT 100 mls/hr .Q10H MARGUERITE Administration Insulin Aspart 0 units 09/20/22 12:00 09/22/22 12:08 Insulin Aspart (*Bkc) 100 Units/Ml SUB-Q 2 units TIDWM MARGUERITE Administration Protocol
[2022-09-22 14:31] VITALS: BP 166/82; PULSE 97; RESP 18; TEMP 36.7; O2SAT 100
[2022-09-22] MEDS: NEOMYCIN/POLYMYXIN/BACITRACIN OINTMENT PACKET 1 PACKET (16:34)
[2022-09-22 17:02] LABS: Glucose Point of Care 181 mg/dl (65-105)
[2022-09-25 13:32] LABS: Chloride Rand Ur 50 mmol/L (32-290); Chloride/Creatinine Rand Ur 238 (38-318); Creatinine Random Urine 21 mg/dL (20-275)
--- NOTE | 2022-10-21 16:28 | PM.DS ---
DS: Admitting Diagnosis Discharge Date 09/22/22 Admitting Diagnosis DKA, diabetic foot infection DS: Discharge Diagnosis Discharge Diagnosis (1) Diabetic ketoacidosis: Code(s): E11.10 - Type 2 diabetes mellitus with ketoacidosis without coma Status: Acute Assessment and Plan: Resolved. Patient blood sugars have been dropping in the morning. Insulin Lantus is on hold. Continue on low-dose corrections scale (2) Diabetic infection of left foot: Code(s): E11.628 - Type 2 diabetes mellitus with other skin complications; L08.9 - Local infection of the skin and subcutaneous tissue, unspecified Status: Acute Assessment and Plan: Appreciate surgical input. patient also has diabetes wound on her left foot and seen by surgery service and wound was debrided however surgeon recommended amputation BKA to prevent reoccuring wound and patient had agreed and had BKA, able to do her PT, wants to go home with PT, patient will be seen by surgery service and further recommendation to follow. (3) Cellulitis of left foot: Code(s): L03.116 - Cellulitis of left lower limb Status: Acute Assessment and Plan: As above (4) Acute kidney injury: Code(s): N17.9 - Acute kidney failure, unspecified Status: Acute Assessment and Plan: kidney function worsening. Will consult Nephrology. Will start on IV fluids. Monitor BMP (5) Anemia: Code(s): D64.9 - Anemia, unspecified Status: Acute Assessment and Plan: on 09/15 patient had? EGD due Anemia, GI suspect most likely erosive esophagitis, and recommended protonix 40mg BID,? Will change to oral Protonix from IV hemoglobin is stable after 1 unit PRBC transfusion DS: Summary Hospital Course Hospital Course: Admitted for DKA and also diabetic foot infection. Patient ultimately had a BKA performed by surgery. Patient did well postop. Medically with stabilizing was discharged from the hospital will need to follow up with surgery. Time Spent with Patient Time attestation: Total time spent providing and/or coordinating discharge services: Exam Narrative: Patient is comfortable, NAD HEENT: eyes are clear and none icteric LUNGS: Normal respiratory effort ABD: Distended Lower extremities: no edema SKIN: nonjaundiced Neuro: grossly intact. DS: Data Data Completed and Pending Completed studies during hospitalization: Pending at discharge 05/25/23 11:58 Surgical [PTH] Routine Discharge Plan Discharge Attending physician on discharge: Akhil Walsh Consulting providers: Harrison Covarrubias; Olman Jones; Rivera Chambers; Della Villatoro; Dutch Miller; Jairo Meyer; Charlie Guevara; Monae Carreno; Amilcar Rust; Kathia Johnson; Robin Flores; Seamus Crawley; Hussein Estrada; Daisha Fung; Edenilson Juan Discharging Clinician: Akhil Walsh Patient Disposition: Inpatient Rehab Facility Activity: august shower Diet: diabetic Wound Care Instructions: remove dressing to shower Discharge Instructions: Patient is scheduled to see new primary care doctor on November 03, 2022 at 10:00AM. Please arrive 30 minutes prior to appointment. Dr. Mina Rojas MD [address] [place] [address] Keep left BKA stump elevated on pillows. Dressed the stump with 4x4 gauze Kerlix gauze and apply stump sock. Remove dressing to shower and then reapply new gauze dressing daily. No soaking the incision under water for at least 2 weeks. No need for oral abx from general surgery standpoint at discharge. Patient Instructions: Antibiotic Form, Acute Kidney Injury (DC), Pain Management (DC), Basic Carbohydrate Counting (DC), Diabetic Foot Ulcers (DC), Type 2 Diabetes Management for Adults (DC) Stand Alone Forms: General Discharge Information Follow-up/Referrals: Monae Carreno MD [Physician] - (
== END 2022-09-22 17:24 | DRG 710 ==
LOC: ANHICU 09-14 14:50 → ANHIMU 09-14 18:25 → ANH2MED 09-15 18:35
PROVIDERS: Hospitalist; Internal Medicine; Internal Medicine Gastroenterology; Internal Medicine Nephrology; Physician Assistant; Student in an Organized Health Care Education/Training Program; Surgery; Admitting Provider Internal Medicine; Visit Provider Chiropractor
PROC: 0KBW0ZZ Excision of Left Foot Muscle, Open Approach (ICD-10-PCS; principal; 2022-09-13 13:00)
PROC: 0DJ08ZZ Inspection of Upper Intestinal Tract, Via Natural or Artificial Opening Endoscopic (ICD-10-PCS; CPT 43235; principal; 2022-09-15 11:30)
PROC: 0Y6J0Z1 Detachment at Left Lower Leg, High, Open Approach (ICD-10-PCS; CPT 27882; principal; 2022-09-16 12:30)
DX: A41.9 Sepsis, unspecified organism (principal); E11.10 Type 2 diabetes mellitus with ketoacidosis without coma; E11.621 Type 2 diabetes mellitus with foot ulcer; K22.11 Ulcer of esophagus with bleeding; N17.9 Acute kidney failure, unspecified; R65.20 Severe sepsis without septic shock; M86.172 Other acute osteomyelitis, left ankle and foot; D62 Acute posthemorrhagic anemia; L97.529 Non-pressure chronic ulcer of other part of left foot with unspecified severity; E11.69 Type 2 diabetes mellitus with other specified complication; E11.628 Type 2 diabetes mellitus with other skin complications; L03.116 Cellulitis of left lower limb; Z91.148 Patient's other noncompliance with medication regimen for other reason; E87.6 Hypokalemia; D64.9 Anemia, unspecified
CPT/HCPCS: 36415; 36430; 36569; 36600; 71045; 73630; 73700; 76775; 80048; 80053; 80202; 81001; 81050; 82010; 82274; 82375; 82436; 82550; 82570; 82607; 82728; 82746; 82805; 82948; 83010; 83036; 83050; 83540; 83550; 83605; 83615; 83735; 84100; 84145; 84156; 84300; 84439; 84443; 84480; 84484; 84540; 85025; 85027; 85046; 85610; 85730; 85999; 86140; 86850; 86900; 86901; 86923; 87040; 87070; 87077; 87081; 87086; 87088; 87106; 87205; 88307; 88311; 93005; 93971; 97110; 97162; 97165; 97530; 97535; A9270; C1751; C9113; J0330; J0780; J1170; J1650; J1815; J2185; J2250; J2270; J2370; J2405; J2704; J2997; J3010; J3370; J3475; J3480; J7030; J7040; J7050; J7120; P9016

== ENCOUNTER 2025-02-05 15:30 | Emergency (ER) | payer OTHER, SELFPAY ==
--- NOTE | ~2025-02-05 | XR_ITS ---
EXAMINATION: XR chest 1V portable COMPARISON: No comparisons available. HISTORY: sob FINDINGS: Small basilar infiltrates. Mild pulmonary venous congestion. No pneumothorax. Mild cardiomegaly. Mediastinal and hilar contours are within normal limits. Bony thorax no acute abnormality. Miscellaneous: None Impression: Mild CHF Reviewed, dictated and finalized at location P. Impression: Mild CHF
[2025-02-05 15:30] VITALS: BP 218/115; BP 220/120; PULSE 90; PULSE 92; RESP 20; TEMP 36.2; TEMP 36.4; O2SAT 100
--- NOTE | 2025-02-05 15:37 | ECG_ITS ---
Test Date: 2025-02-05 15:47:25 Measurements Intervals [place] Rate: 88 P: 44 PA: 138 QRS: 14 QRSD: 87 T: 72 QT: 387 QTc: 469 Interpretive Statements SINUS RHYTHM POSSIBLE ANTERIOR MYOCARDIAL INFARCTION , PROBABLY OLD BORDERLINE ST-T WAVE ABNORMALITY- INF/HIGH LAT LEADS BASELINE ARTIFACT- I, II, III, AVR, AVL, AVF, V3 ABNORMAL ECG No previous ECG available for comparison Electronically Signed On 02-05-2025 16:57:38 CDT by Seamus Crawley D.O.
[2025-02-05 16:00] LABS: Hematocrit 34.5 % (35.0-49.0); Hemoglobin 10.6 g/dL (12.0-15.0); Immature Granulocyte Percent A 0.4 % (0.0-0.0); Immature Platelet Fraction Pct 1.1 % (1.0-7.0); Lymphocytes Absolute Auto 1.42 K/mm3 (1.10-4.50); Mean Corpuscular HGB Conc 30.7 g/dL (32-36); Mean Corpuscular Hemoglobin 23.4 pg (27.0-31.0); Mean Corpuscular Volume 76.2 fL (78.0-102.0); Nucleated Red Blood Cells Absolute Auto 0.04 K/mm3 (0.00-0.00); Nucleated Red Blood Cells Perc 0.6 % (0-0.0); Platelet Count Result 475 K/mm3 (150-420); Red Blood Count 4.53 M/mm3 (4.20-5.40); White Blood Count 7.3 K/mm3 (4.8-10.8)
[2025-02-05] MEDS: diazePAM INJ (*CRX) 10 MG/2 ML SYRINGE 2.5 MG IV PUSH (16:05)
[2025-02-05] MEDS: SODIUM CHLORIDE 0.9% IV 1,000 ML 150 ML IV CONT (16:06)
[2025-02-05 16:11] LABS: Alanine Aminotransferase 35 U/L (6-35); Albumin Level 3.6 g/dL (3.5-5.1); Alkaline Phosphatase 172 U/L (38-126); Aspartate Amino Transferase 54 U/L (14-36); Bilirubin,Total 1.0 mg/dL (0.2-1.3); Blood Urea Nitrogen 78 mg/dL (7-17); Calcium 7.3 mg/dL (8.4-10.2); Carbon Dioxide < 5 mmol/L (22-30); Chloride 108 mmol/L (98-107); Estimated CRCL calculation 9 ml/min; Estimated Glomerular Filt Rate 4; Glucose 111 mg/dL (65-110); Osmolality Calculated 308 mOsm/kg (285-295); Potassium 5.1 mmol/L (3.4-5.0); Sodium 137 mmol/L (137-145); Total Protein 8.0 g/dL (6.3-8.2)
[2025-02-05 16:12] VITALS: BP 207/117; O2SAT 100
--- NOTE | 2025-02-05 16:15 | ED_ITS ---
HPI - General Adult General Chief complaint: Unspecified Stated complaint: leg swelling; shortness of breath; diabetes issues Time Seen by Provider: 02/05/25 15:37 Source: patient Mode of arrival: wheelchair Limitations: no limitations History of Present Illness HPI narrative: 44-year-old with a history of hypertension, anxiety and panic disorder, diabetes status post BKA on the left here with a complains of shortness of breath for past couple hours, not feeling well. Patient states that she is not taking any of her diabetes medication for while and she things all her labs are abnormal. She denies having any chest pain. No history of nausea or vomiting. However she complains of right leg swelling. Onset (ago): day(s) (1) Severity: moderate Relieving factors: none Exacerbating factors: none Associated symptoms: denies other symptoms Treatments prior to arrival: none Related Data Allergies Allergy/AdvReac Type Severity Reaction Status Date / Time Penicillins Allergy Intermediate Rash Verified 10/08/22 13:26 Review of Systems 2 Review of Systems: All systems reviewed & are unremarkable except as noted in HPI and below ENT: Reports system reviewed and no additional complaints, except as documented Cardiovascular: Cardiovascular: Reports no additional cardiovascular complaints Respiratory: Respiratory: Reports no additional respiratory complaints Gastrointestinal: Gastrointestinal: Reports no additional gastrointestinal complaints Musculoskeletal: Musculoskeletal: Reports as per HPI Integumentary/Breasts: Skin/Breast: Reports system reviewed and no additional complaints, except as docu PMFSH Past Medical History Medical History (Updated 02/05/25 @ 17:59 by Gordon Calderón MD) Diabetes type 2, uncontrolled Gestational diabetes Surgical History Surgical History (Updated 10/08/22 @ 13:37 by Lizzette Mehta) History of left below knee amputation 09/16/2022- left below-knee amputation History of cholecystectomy 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 Code status: Full code. Smoking packs per day: 0 Smoking cigarettes per day: 0.0 Years smoked: 0 Smoking pack-years: 0.00 Smoking status: Never smoker Second hand tobacco smoke exposure: No Alcohol intake: current Drinks per week: 0 Substance use: never Substance use type: does not use Lack of Transportation: No Lack of Food: Never True Current Housing: I Have Housing Concerned About Future Housing: No Difficulty Paying Gas/Electric Bills: No Difficulty Paying for Meds: No Currently Unemployed: No Education: Bachelor's Degree Difficulty w/ Childcare or Family Care: No Living arrangements: with family Additional living arrangements comments: Lives with spouse and children. Occupation/Education: occupation Gender identity (if verbalized by the patient): Female Sexual Orientation (if Verbalized by the Patient): Straight or Heterosexual Spiritual care concerns: No Agree to blood products: No Exam 2 Narrative: GENERAL: Well-appearing, well-nourished, and in no acute distress. hyperventilating HEAD: Normocephalic, atraumatic. EYES: PERRLA and EOMI. ENT: Nares clear, no rhinorrhea or epistaxis. Mucous membranes moist. NECK: Supple. CHEST: Clear to auscultation. No respiratory distress. HEART: Regular rate and rhythm. No murmur heard. Normal peripheral pulses. ABDOMEN: Soft, nontender, nondistended, normal active bowel sounds. EXTREMITIES: Normal range of motion. No edema. BKA on the left SKIN: Warm, dry, no rash. NEURO: No focal deficits. Alert and oriented x3. PSYCH: Normal mood and affect. Course Course Emergency Course: pt is renal failure with unknown duration ,pt has not been seen doctor in 2yrs , last Cr was 1.5 in september . will transfer to [place] .discussed with Bettye will accept the pt. Vital Signs Vital signs: Vital Signs Temperature 36.2 C L 02/05/25 15:30 Pulse Rate 90 02/05/25 15:30 Respiratory Rate 20 02/05/25 15:30 Blood Pressure 218/115 H 02/05/25 15:30 Pulse Oximetry 100 02/05/25 15:30 Oxygen Delivery Room Air 02/05/25 15:30 Temperature 36.2 C L 02/05/25 15:30 Pulse Rate 90 02/05/25 15:30 Respiratory Rate 20 02/05/25 15:30 Blood Pressure 218/115 H 02/05/25 15:30 Pulse Oximetry 100 02/05/25 15:30 Oxygen Delivery Room Air 02/05/25 15:30 Medical Decision Making MDM Narrative Medical decision making narrative: 44-year-old with a history of hypertension , diabetes noncompliant with medication here with complaints of of generalized weakness, shortness of breath will do lab work her blood pressure was elevated upon arrival give hydralazine. Differential Diagnosis Differential Diagnosis: Hyperventilation syndrome, DKA , hypertensive urgency, Medical Records Medical records reviewed: Yes I reviewed the external patient's medical records. Vital Signs Vital Signs: Vital Signs Temperature 36.2 C L 02/05/25 15:30 Pulse Rate 90 02/05/25 15:30 Respiratory Rate 20 02/05/25 15:30 Blood Pressure 218/115 H 02/05/25 15:30 Pulse Oximetry 100 02/05/25 15:30 Oxygen Delivery Room Air 02/05/25 15:30 Temperature 36.2 C L 02/05/25 15:30 Pulse Rate 90 02/05/25 15:30 Respiratory Rate 20 02/05/25 15:30 Blood Pressure 218/115 H 02/05/25 15:30 Pulse Oximetry 100 02/05/25 15:30 Oxygen Delivery Room Air 02/05/25 15:30 Lab Data Lab results reviewed: Yes I reviewed the patient's lab results. 02/05/25 15:56 02/05/25 15:56 Labs: Lab Results 02/05/25 02/05/25 Range/Units 15:40 15:56 WBC 7.3 (4.8-10.8) K/mm3 RBC 4.53 (4.20-5.40) M/mm3 Hgb 10.6 L (12.0-15.0) g/dL Hct 34.5 L (35.0-49.0) % MCV 76.2 L (78.0-102.0) fL MCH 23.4 L (27.0-31.0) pg MCHC 30.7 L (32-36) g/dL RDW 20.3 H (11.6-14.4) % Plt Count 475 H (150-420) K/mm3 MPV 10.3 (9.2-11.8) fl Immature Gran % (Auto) 0.4 H (0.0-0.0) % Neut % (Auto) 70.7 H (50.0-70.0) % Lymph % (Auto) 19.5 (18.0-42.0) % Coffee % (Auto) 7.3 (2.0-11.0) % Eos % (Auto) 1.1 (1.0-6.0) % Baso % (Auto) 1.0 (0.0-1.0) % Lymph # (Auto) 1.42 (1.10-4.50) K/mm3 Coffee # (Auto) 0.53 (0.10-0.90) K/mm3 Eos # (Auto) 0.08 (0.02-0.50) K/mm3 Baso # (Auto) 0.07 (0.00-0.10) K/mm3 Abs Immat Gran (auto) 0.03 H (0.00-0.00) K/mm3 Absolute Neuts (auto) 5.14 (1.70-7.20) K/mm3 Absolute Nucleated RBC 0.04 H (0.00-0.00) K/mm3 Nucleated RBC % 0.6 H (0-0.0) % % Immature Plt Fraction 1.1 (1.0-7.0) % Sodium Pending Potassium Pending Chloride Pending Carbon Dioxide Pending Anion Gap Pending BUN Pending Creatinine Pending Estim Creat Clear Calc Pending Estimated GFR Pending Glucose Pending POC Capillary Glucose 112 H (65-105) mg/dl Hemoglobin A1c Pending Calculated Osmolality Pending Calcium Pending Total Bilirubin Pending AST Pending ALT Pending Alkaline Phosphatase Pending NT-Pro-B Natriuret Pep Pending Total Protein Pending Albumin Pending TSH Pending Imaging Data Radiologist's impression: ITS Impressions Chest X-Ray 02/05/25 16:13 Impression: Mild CHF ECG Data EKG #1: ECG completion date: 02/05/25 ECG completion time: 15:47 EKG Interpretation: normal rate (88), no ST changes, normal QRS, normal QT and no acute changes Discharge Plan Discharge Clinical Impression: Metabolic acidosis, Severe uncontrolled hypertension Renal failure Qualifiers: Renal failure chronicity: unspecified chronicity Qualified Code(s): N19 - Unspecified kidney failure Patient Disposition: Acute Care Hospital Condition: Stable Patient Language: [place]an Prescriptions: No Action insulin lispro 100 unit/mL insulin pen 1 sliding scale dose subcut USEASDIRECTD 30 Days Qty: 15 0RF Rx Instructions: 151-200 2units 201-250 4 units 251-300 6 units 301-350 8 units greater than 350 - notify cyclobenzaprine 10 mg Tablet 5 mg PO Q8H PRN (Reason: Muscle Spasm) Qty: 30 0RF carvedilol [Coreg] 3.125 mg Tablet 3.125 mg PO Q12HR Qty: 60 0RF pantoprazole 40 mg Tablet,Delayed Release (Dr/Ec) 40 mg PO Q12HR Qty: 60 0RF hydralazine 50 mg Tablet 50 mg PO Q6HR Qty: 120 0RF escitalopram oxalate 10 mg Tablet 10 mg PO DAILY Qty: 30 0RF Levemir FlexPen 100 unit/mL (3 mL) insulin pen 20 unit subcut HS 30 Days Qty: 15 0RF Follow-up/Referrals: UNKNOWN,DOCTOR [Non-Staff]
[2025-02-05 16:16] VITALS: BP 211/119
[2025-02-05 16:21] LABS: NT Pro B Type Natriuretic Pept > 30000 pg/mL (19.9-100)
[2025-02-05 16:22] LABS: Hemoglobin A1C 8.6 % (<5.7)
[2025-02-05 16:36] VITALS: BP 197/109; O2SAT 100
[2025-02-05 16:46] VITALS: BP 203/104; O2SAT 100
--- NOTE | 2025-02-05 16:48 | PC.NURSE ---
is Luke. Please call with updates.
[2025-02-05 17:04] LABS: Thyroid Stimulating Hormone 6.320 uIU/mL (0.465-4.680)
--- OUTSIDE RECORDS SUMMARY | 2025-02-05 17:10 | XMS_ITS | Clinical Summary ---
Author Organization [facility] Address [address] [place] [address] Phone Care Team Providers Care Retail Director Name Role Phone Unavailable Primary Care Provider Unavailabl e Social History Tobacco Use Types Packs/Day Years Used Date Smoking Tobacco: Never Assessed Comments Unknown Sex and Gender Information Value Date Recorded Sex Assigned at Not on file Legal Sex Female 11:28 AM CDT Gender Identity Not on file Sexual Orientation Not on file Plan of Treatment Health Maintenance Due Date Last Done Comments DTAP/TDAP/TD VACCINES (1 - Tdap) 2001 HEPATITIS B VACCINES (1 of 3 - 19+ 3-dose series) 01/25 HPV/Cotest (21-29) 2003 HPV VACCINES (1 - 3-dose SCDM series) 2009 CERVICAL CANCER SCREENING 02/22/2012 HPV/Cotest (30-65) 02/22/2012 PAP SMEAR 02/22/2012 BREAST CANCER SCREENING 2022 INFLUENZA VACCINE (#1) 2024 Insurance [facility] [employer] PPO [id number]
--- OUTSIDE RECORDS SUMMARY | 2025-02-05 17:10 | XMS_ITS ---
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 Name Role Phone Unavailable Unavailable Unavailable Problems Includes: Active, inactive, and resolved Problems All Visits Onset Date Resolved Date Provider Condition S tatus Adjustment Disorder with Depressed Mood 02/27/2021 MATILDE L YOLETTE DO Active Last Documented On 02/27/2021 12:39PM ; [facility] Note: Unchanged Sebaceous Cyst 02/27/2021 MATILDE L YOLETTE DO Ac tive Last Documented On 02/27/2021 12:41PM ; [facility] Note: Unchanged Diabetes Mellitus Type 2 02/13/2021 MATILDE L YOLETTE DO Active Last Documented On 1 1:19PM ; [facility] 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 02/13/2021 MATILDE L MCCONK EY DO Active Last Documented On 1 1:23PM ; [facility] Note: Unchanged Diabetes Mellitus with Foot Ulcer 02/13/2021 IS OSMAN L YOLETTE DO Active Last Documented On 1 1:20PM ; [facility] Essential Hypertension 02/13/2021 MATILDE L MCCONK EY DO Active Last Documented On 1 1:20PM ; [facility] Iron Deficiency Anemia 02/13/2021 MATILDE L MCCONK EY DO Active Last Documented On 1 1:23PM ; [facility] Note: Unchanged Iron Deficiency Anemia 02/13/2021 MATILDE L MCCONK EY DO Inactive Last Documented On 1 1:23PM ; [facility] 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 Discu ssed treatment options with the patient. Discussed with patient proper care and hygeine for their feet. Patient tolerated procedures well without incident. Procedure: (74113 Debridement of toenails 6-10) Surgically debrided and mechanically reduced 6 or more toenails specifically nails 1-5 left and 1-5 right. Hemmorhage occurred none. PODIATRY CONSULTATION- ESTABLISHED PATIENT with CHINYERE VERGARA DPM 05/29/2021 Last Documented On 2 10:44AM ; [facility] IV antibiotics Bone scan Pod iatry consultation Tuesday CONSULTATION - NEW PATIENT with BLADE COELHO DO 01/31/2021 Last Documented On 1 10:31AM ; [facility] Referrals To Diagnosis General Surgery Sebaceous cyst Last Documented On 4 12:23PM ; [facility] Assessments Includes: Assessments for all patient encounters Findings Encounter Date [M20.40 - Other hammer toe(s ) (acquired), unspecified foot] hammer toe PODIATRY CONSULTATION- ESTABLISHED PATIENT with CHINYERE VERGARA DPM 05/29/2021 Last Documented On 2 10:44AM ; [facility] [Z89.431 - Acquired absence of right foot] lower limb amputation at the foot PODIATRY CONSULTATION- ESTABLISHED PATIENT with CHINYERE Ba VERGARA DPM 05/29/2021 Last Documented On 2 10:44AM ; [facility] Onychomycosis PODIATRY CONSULTATIO N- ESTABLISHED PATIENT with CHINYERE Ba VERGARA DPM 05/29/2021 Last Documented On 2 10:44AM ; [facility] Type 2 diabetes with diabeti c polyneuropathy PODIATRY CONSULTATION- ESTABLISHED PATIENT with CHINYERE Ba VERGARA DPM 05/29/2021 Last Documented On 2 10:44AM ; [facility] Adjustment disorder with depressed mood CHECK UP with MATILDE DE LA VEGA DO 02/27/2021 Last Documented On 1 12:42PM ; [facility] Diabetes mellitus with foot ulcer CHECK UP with MATILDE L YOLETTE DO 02/27/2021 Last Documented On 1 12:42PM ; [facility] Essential hypertension CHECK UP with MATILDE L MCCO NKEY DO 02/27/2021 Last Documented On 1 12:42PM ; [facility] Sebaceous cyst CHECK UP with MATILDE L YOLETTE DO 02/27/2021 Last Documented On 1 12:42PM ; [facility] Diabetes mellitus with foot ulcer HOSPIT AL FOLLOW UP EXAM with MATILDE L YOLETTE DO 02/13/2021 Last Documented On 1 1:23PM ; [facility] Essential hypertension HOSPITAL FOLLOW UP EXAM w ith MATILDE L YOLETTE DO 02/13/2021 Last Documented On 1 1:23PM ; [facility] Iron deficiency anemia HOSPITAL FOLLOW UP EXAM w ith MATILDE L YOLETTE DO 02/13/2021 Last Documented On 1 1:23PM ; [facility] Lower limb amputation at the first toe H OSPITAL FOLLOW UP EXAM with MATILDE L YOLETTE DO 02/13/2021 Last Documented On 1 1:23PM ; [facility] Type 2 diabetes mellitus HOSPITAL FOLLOW UP EXAM with MATILDE L YOLETTE DO 02/13/2021 Last Documented On 1 1:23PM ; [facility] Necrotic ulcers of the right great toe CONSULTATION - NEW PATIENT with BLADE COELHO DO 01/31/2021 Last Documented On 1 10:31AM ; [facility] Medical Equipment - Implanted Devices Includes: Current and historical Devices No Medical Equipment Recorded Medications Includes: Current and historical Medications Current Medications (continue as prescribed) Losartan Potassium 25 MG Oral Tablet 10/29/2021 Prov ider: ARUN CUBA D.O. Diagnosis: TAKE 1 TABLET BY MOUTH EVERY DAY Last Documented On 10/29/2021 5:20PM By FARAZ RUFF ; [facility] Citalopram Hydrobromide 10 MG Oral Tablet 10/29/2021 Provider: ARUN Buchanan Diagnosis: Adjustment disor sb with depressed mood TAKE 1 TABLET BY MOUTH EVERY DAY Last Documented On 10/29/2021 5:21PM By FARAZ RUFF ; [facility] Metoprolol Tartrate 25 MG Oral Tablet 10/29/2021 Pro vider: MARIEL COLLADO DO Diagnosis: TAKE 1 TABLET BY MOUTH TWICE A DAY Last Documented On 10/29/2021 5:20PM By FARAZ RUFF ; [facility] HumaLOG KwikPen 100 UNIT/ML Subcutaneous Solution Pen-injector 10/01/2021 Provider: MARIEL COLLADO DO Diagnosis: USE 4 TIMES A DAY PER SLIDIN G SCALE UP TO A MAX OF 30 UNITS PER DAY Last Documented On 10/01/2021 9:04AM By MARIEL COLLADO DO ; [facility] Lantus SoloStar 100 UNIT/ML Subcutaneous Solution Pen-injector 09/17/2021 Provider: MARIEL COLLADO DO Diagnosis: INJECT 22 UNIT SUBCUTANEOUS DAILY Last Documented On 09/17/2021 4:39PM By MARIEL COLLADO DO ; [facility] Metoprolol Tartrate 25 MG Oral Tablet 03/27/2021 Pro vider: MINE PASTRANA PA-C Diagnosis: Last Documented On 03/27/2021 5:33PM By Matilde De La Vega ; [facility] Lantus 100 UNIT/ML Subcutaneous Solution 03/27/2021 Provider: Diagnosis: inject 22 unit sub-q dailydispense QS x 1 month supply Last Documented On 03/27/2021 5:35PM By Matilde De La Vega ; [facility] Losartan Potassium 25 MG Oral Tablet 03/27/2021 Prov ider: Diagnosis: Last Documented On 03/27/2021 5:34PM By Matilde De La Vega ; [facility] Ferrous Sulfate 325 (65 Fe) MG Oral Tablet 02/13/2021 Provider: Diagnosis: Last Documented On 11:33AM By Ema RUFF ; [facility] levoFLOXacin 250 MG Oral Tablet 02/13/2021 Provider: Diagnosis: Last Documented On 11:35AM By Ema RUFF ; [facility] HumaLOG 100 UNIT/ML Subcutaneous Solution Cartridge Provider: Diagnosis: Last Documented On 11:34AM By Ema RUFF ; [facility] Amethia 0.15-0.03 &0.01 MG Oral Tablet 01/31/2021 Pr ovider: Diagnosis: Last Documented On 01/31/2021 10:20AM By BLADE COELHO DO ; [facility] Past Medications on file Citalopram Hydrobromide 10 MG Oral Tablet 09/17/2021 - 10/29/2021 Provider: MARIEL COLLADO DO Diagnosis: Adjustment disor sb with depressed mood TAKE 1 TABLET BY MOUTH EVERY DAY Last Documented On 10/29/2021 4:35PM By FARAZ RUFF ; [facility] Losartan Potassium 25 MG Ora l Tablet 09/17/2021 - 10/29/2021 Provider: MARIEL COLLADO DO Diagnosis: TAKE 1 TABLET BY MOUTH EVERY DAY Last Documented On 10/29/2021 4:31PM By FARAZ RUFF ; [facility] Metoprolol Tartrate 25 MG Or al Tablet 09/17/2021 - 10/29/2021 Provider: MARIEL COLLADO DO Diagnosis: TAKE 1 TABLET BY MOUTH TWICE A DAY Last Documented On 10/29/2021 4:34PM By FARAZ RUFF ; [facility] Citalopram Hydrobromide 10 MG Oral Tablet 08/17/2021 - 09/17/2021 Provider: MARIEL COLLADO DO Diagnosis: Adjustment disor sb with depressed mood TAKE 1 TABLET BY MOUTH EVERY DAY Last Documented On 09/17/2021 12:23PM By MARIEL COLLADO DO ; [facility] Metoprolol Tartrate 25 MG Or al Tablet 08/17/2021 - 09/17/2021 Provider: MARIEL COLLADO DO Diagnosis: TAKE 1 TABLET BY MOUTH TWICE A DAY Last Documented On 09/17/2021 12:16PM By MARIEL COLLADO DO ; [facility] Losartan Potassium 25 MG Ora l Tablet 08/17/2021 - 09/17/2021 Provider: MARIEL COLLADO DO Diagnosis: TAKE 1 TABLET BY MOUTH EVERY DAY Last Documented On 09/17/2021 12:17PM By MARIEL COLLADO DO ; [facility] HumaLOG KwikPen 100 UNIT/ML Subcutaneous Solution Pen-injector 08/07/2021 - 10/01/2021 Provider: MARIEL COLLADO DO Diagnosis: USE 4 TIMES A DAY PER SLIDIN G SCALE UP TO A MAX OF 30 UNITS PER DAY Last Documented On 10/01/2021 8:59AM By MARIEL COLLADO DO ; [facility] Losartan Potassium 25 MG Ora l Tablet 07/16/2021 - 08/17/2021 Provider: MARIEL COLLADO DO Diagnosis: TAKE 1 TABLET BY MOUTH EVERY DAY Last Documented On 08/17/2021 12:59PM By MARIEL COLLADO DO ; [facility] Metoprolol Tartrate 25 MG Or al Tablet 07/16/2021 - 08/17/2021 Provider: MARIEL COLLADO DO Diagnosis: TAKE 1 TABLET BY MOUTH TWICE A DAY Last Documented On 08/17/2021 12:59PM By MARIEL COLLADO DO ; [facility] Citalopram Hydrobromide 10 MG Oral Tablet 07/15/2021 - 08/17/2021 Provider: MARIEL COLLADO DO Diagnosis: Adjustment disor sb with depressed mood TAKE 1 TABLET BY MOUTH EVERY DAY Last Documented On 08/17/2021 12:59PM By MARIEL COLLADO DO ; [facility] HumaLOG KwikPen 100 UNIT/ML Subcutaneous Solution Pen-injector 06/19/2021 - 08/07/2021 Provider: MARIEL COLLADO DO Diagnosis: USE 4 TIMES A DAY PER SLIDIN G SCALE UP TO A MAX OF 30 UNITS PER DAY Last Documented On 08/07/2021 12:51PM By MARIEL COLLADO DO ; [facility] Metoprolol Tartrate 25 MG Or al Tablet 06/19/2021 - 07/16/2021 Provider: MARIEL COLLADO DO Diagnosis: TAKE 1 TABLET BY MOUTH TWICE A DAY Last Documented On 07/16/2021 10:54AM By MARIEL COLLADO DO ; [facility] Lantus SoloStar 100 UNIT/ML Subcutaneous Solution Pen-injector 06/19/2021 - 09/17/2021 Provider: MARIEL COLLADO DO Diagnosis: INJECT 22 UNIT SUBCUTANEOUS DAILY Last Documented On 09/17/2021 4:33PM By MARIEL COLLADO DO ; [facility] Losartan Potassium 25 MG Ora l Tablet 06/19/2021 - 07/16/2021 Provider: MARIEL COLLADO DO Diagnosis: TAKE 1 TABLET BY MOUTH EVERY DAY Last Documented On 07/16/2021 10:54AM By MARIEL COLLADO DO ; [facility] Citalopram Hydrobromide 10 MG Oral Tablet 06/18/2021 - 07/15/2021 Provider: MARIEL COLLADO DO Diagnosis: Adjustment disor sb with depressed mood TAKE 1 TABLET BY MOUTH EVERY DAY Last Documented On 07/15/2021 8:17PM By MARIEL COLLADO DO ; [facility] Citalopram Hydrobromide 10 MG Oral Tablet 04/27/2021 - 06/18/2021 Provider: MATILDE DE LA VEGA DO Diagnosis: Adjustment disor sb with depressed mood TAKE 1 TABLET BY MOUTH EVERY DAY, needs an appt for further refills Last Documented On 06/18/2021 9:26PM By MARIEL COLLADO DO ; [facility] CeleXA 10 MG Oral Tablet 02/27/2021 - 04/27/2021 Provider: MATILDE DE LA VEGA DO Diagnosis: Adjustment disor sb with depressed mood 1 capsule daily Last Documented On 5:26PM By CHESTER RUFF ; [facility] Losartan Potassium 25 MG Oral Tablet 02/13/2021 - 06/2020 Provider: Diagnosis: Last Documented On 03/27/2021 5:34PM By Matilde De La Vega ; [facility] Lantus 100 UNIT/ML Subcutaneous Solution 02/13/2021 - 03/27/2021 Provider: Diagnosis: inject 22 unit sub-q daily Last Documented On 03/27/2021 5:35PM By Matilde De La Vega ; [facility] Metoprolol Tartrate 25 MG Oral Tablet 02/07/2021 - 03/27/2021 Provider: MINE Skinner PA-C Diagnosis: Last Documented On 03/27/2021 5:33PM By Matilde De La Vega ; [facility] Medications Administered Includes: Administered Medications in patient's chart No Administered Medications Recorded Results Includes: Results from 02/06/2024 through 02/05/2025 No Results Recorded For Specified Dates History of Present Illness History of Present Illness not supported for this document type No History of Present Illness Recorded Social History Description Last Updated Not a job-related injury 05/29/2021 Last Documented On 10:44AM ; [facility] Tobacco non-user 02/13/2021 Last Documented On 1 1:23PM ; [facility] Smoking Status Unknown Medical History Includes: Medical History in patient's chart Description Last Updated Diabetes 05/29/2021 Last Documented On 2 10:44AM ; [facility] Family History Includes: Family History in patient's chart Description Last Updated Family history of cancer 05/29/2021 Last Documented On 2 10:44AM ; [facility] Maternal history of Chest Pain 2 Last Documented On 2 10:44AM ; [facility] Maternal history of tobacco use 05/29/19 Last Documented On 2 10:44AM ; [facility] Paternal history of Chest Pain 2 Last Documented On 2 10:44AM ; [facility] Paternal history of family medical histo ry of high blood pressure 05/29/2021 Last Documented On 2 10:44AM ; [facility] Paternal history of Nerve Disorder 05/29 Last Documented On 2 10:44AM ; [facility] Paternal history of reported family hist ory of diabetes 05/29/2021 Last Documented On 2 10:44AM ; [facility] Paternal history of stroke syndrome 07/2021 Last Documented On 2 10:44AM ; [facility] Paternal history of tobacco use 05/29/19 Last Documented On 2 10:44AM ; [facility] Review of Systems Review of Systems not supported for this document type No Review of Systems Recorded Mental Status No Mental Status Recorded Functional Status No Functional Status Recorded Physical Exam Physical Exam not supported for this document type No Physical Exam Recorded Allergies Includes: Active, inactive, and resolved Allergies Substance Type Reaction Onset Date Resolved Date Statu s Penicillins Allergy 01/31/2021 Active Last Documented On 1 11:12AM ; [facility] Adhesive Tape Allergy Skin Rashes / Eruption of skin 02/27 Active Last Documented On 1 11:12AM ; [facility] Insurance Includes: Active Insurance Policies Plan Name Member ID Group # Subscriber Relationship Effect cari Dates 1 - [facility] [id number] SAL MITCHELL Self Clinical Notes Includes: Signed Clinical Notes starting from 05/14/2022 No Clinical Notes Recorded
--- OUTSIDE RECORDS SUMMARY | 2025-02-05 17:10 | XMS_ITS | Clinical Summary ---
Author Organization [facility] Address [address] [place] [address] Care Team Providers Care Resident Care Director Name Role Phone None, Provider MD Primary Care Provider Unavaila ble Allergies Active Allergy Reactions Criticality Noted Date Comments Penicillins Hives 03/21/2018 Medications Blood Glucose Monitoring Suppl (D-CARE GLUCOMETER) w/Device Kit 1 Units by Does not apply route 4 (four) times daily. 1 kit 03/26/2018 Active metFORMIN 850 MG tablet Take 1 tablet (850 mg total) by mouth daily with breakfast. 30 tablet 06/22/2019 Active Immunizations Immunization Administration Dates Next Due Fluarix (IIV4) 03/24/2018 Tdap (Boostrix) 03/24/2018 Family History Medical History Relation Comments Diabetes Father Heart Attack Father Relation Status Comments Father Social History Tobacco Use Types Packs/Day Years Used Date Smoking Tobacco: Never Smokeless Tobacco: Never Alcohol Use Standard Drinks/Week Comments No 0 (1 standard drink = 0.6 oz pur e alcohol) AUDIT-C Answer Date Recorded Frequency of Alcohol Consumption Never 06/22/2019 Average Number of Drinks Not on file 020 Frequency of Binge Drinking Not on file 05/27 Comments No Sex and Gender Information Value Date Recorded Sex Assigned at Not on file Legal Sex Female 3:08 PM HIGH PRESSURE CLEANER Gender Identity Not on file Sexual Orientation Not on file Last Filed Vital Signs Vital Sign Reading Time Taken Comments Blood Pressure 152/91 06/22/2019 10:30 PM H[employer] PRESSURE CLEANER Pulse 118 06/22/2019 10:05 PM H[employer] PRESSURE CLEANER Temperature 36.7 C (98 F) 06/22/2019 7:35 PM H[employer] PRESSURE CLEANER Respiratory Rate 17 06/22/2019 10:05 PM HIGH PRESSURE CLEANER Oxygen Saturation 100% 06/22/2019 10:30 PM HIGH PRESSURE CLEANER Inhaled Oxygen Concentration - - Weight 106.6 kg (235 lb) 06/22/2019 7:35 PM HIGH PRESSURE CLEANER Height 167.6 cm (5' 6) 06/22/2019 7:35 PM HIGH PRESSURE CLEANER Body Mass Index 37.93 06/22/2019 7:35 PM HIGH PRESSURE CLEANER Plan of Treatment Health Maintenance Due Date Last Done Comments Cervical Cancer Screening Pa p Smear (Age 30 to 64) Every 3 Years 1982 Annual Physical 1985 Hepatitis B Vaccines (1 of 3 - 19+ 3-dose series) 2001 HPV Vaccines (1 - 3-dose SCD M series) 2009 Cervical Cancer Screening Pa p with HPV Testing (Age 30 to 64) Every 5 Years 02/22/2012 Cervical Cancer Screening with HPV 02/22/2012 Mammogram Screening 2022 COVID-19 Vaccine ( - 2023-2 5 season) 2024 Influenza Adult (#1) 2025 03/24/2018 DTaP, Tdap and Td Vaccines ( 2 - Td or Tdap) 03/24/2028 03/24/2018 Hepatitis C Completed 03/21/2018 Meningococcal B Vaccine Aged Out No l onger eligible based on patient's age to complete this topic Meningococcal Vaccine Aged Out No merced javier eligible based on patient's age to complete this topic Pneumococcal Vaccine: Pediat rics (0 to 5 Years) and At-Risk Patients (6 to 49 Years) Aged Out No longer eligi ble based on patient's age to complete this topic RSV Immunizations Under 20 Months Aged Out No longer eligible based on patient's age to complete this topic Procedures Procedure Name Priority Date/Time Associated Diagnosis Comments HEPATITIS PANEL,ACUTE Routine 03/21/2018 3:57 PM HIGH PRESSURE CLEANER Hypertension in (HHS/HCC) from Last 3 Months or Most Recently Relevant to Health Maintenance Results * (ABNORMAL) HEPATITIS PANEL,ACUTE (03/21/2018 3:57 PM HIGH PRESSURE CLEANER) HEPATITIS B SURFACE AG REACTIVE( A) NON-REACT RIKA 03/21/2018 7:55 PM HIGH PRESSURE CLEANER [facility] Comment:REFLEX HBsAg CONFIRM ATORY TEST WILL BE PERFORMED AND REPORTED SEPARATELY. HEP B CORE IGM NON-REACT RIKA NON-REACT RIKA 03/21/2018 7:55 PM HIGH PRESSURE CLEANER [facility] Comment: IgM ANTI HBc NOT DETECTED. DOES NOT EXCLUDE THE POSSIBILITY OF EXPOSURE TO OR INFECTION WITH HBV. NO RETEST REQUIRED. HIGH DOSES OF BIOTIN MAY INTERFERE WITH THIS TEST RESULT. CORRELATION TO CLINICAL HISTORY AND PRESENTATION RECOMMENDED. HAV IGM NON-REACT RIKA NON-REACT RIKA 03/22/2018 7:51 AM HIGH PRESSURE CLEANER [facility] Comment: IgM ANTI HAV NOT DETECTED. DOES NOT EXCLUDE THE POSSIBILITY OF EXPOSURE TO OR INFECTION WITH HAV. LEVELS OF IgM ANTI HAV MAY BE BELOW THE CUTOFF IN EARLY INFECTION. HEPATITIS C AB NON-REACT RIKA NON-REACT RIKA 03/21/2018 7:55 PM HIGH PRESSURE CLEANER [facility] Comment: ANTIBODIES TO HCV NOT DETECTED. DOES NOT EXCLUDE THE POSSIBILITY OF EXPOSURE TO HCV. 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
--- OUTSIDE RECORDS SUMMARY | 2025-02-05 17:10 | XMS_ITS | Clinical Summary ---
Author Organization [facility] Address [address] [place] [address] Phone Care Team Providers Care Bladder Changer Name Role Phone Unavailable Unavailable Unavailable Reason for Visit and Chief Complaint * PHONE CALL Problems Includes: Problems addressed during this encounter and other active Problems All Visits Onset Date Resolved Date Provider Condition S tatus Adjustment Disorder with Depressed Mood 02/27/2021 MATILDE L YOLETTE DO Active Last Documented On 02/27/2021 12:39PM ; [facility] Note: Unchanged Sebaceous Cyst 02/27/2021 MATILDE L YOLETTE DO Ac tive Last Documented On 02/27/2021 12:41PM ; [facility] Note: Unchanged Diabetes Mellitus Type 2 02/13/2021 MATILDE L YOLETTE DO Active Last Documented On 1 1:19PM ; [facility] 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 02/13/2021 MATILDE L MCCONK EY DO Active Last Documented On 1 1:23PM ; [facility] Note: Unchanged Diabetes Mellitus with Foot Ulcer 02/13/2021 IS OSMAN L YOLETTE DO Active Last Documented On 1 1:20PM ; [facility] Essential Hypertension 02/13/2021 MATILDE L MCCONK EY DO Active Last Documented On 1 1:20PM ; [facility] Iron Deficiency Anemia 02/13/2021 MATILDE L MCCONK EY DO Active Last Documented On 1 1:23PM ; [facility] Note: Unchanged 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 Diagnosis: TAKE 1 TABLET BY MOUTH EVERY DAY Last Documented On 10/29/2021 5:20PM By FARAZ RUFF ; [facility] Citalopram Hydrobromide 10 MG Oral Tablet 10/29/2021 Provider: ARUN Buchanan Diagnosis: Adjustment disor sb with depressed mood TAKE 1 TABLET BY MOUTH EVERY DAY Last Documented On 10/29/2021 5:21PM By FARAZ RUFF ; [facility] Metoprolol Tartrate 25 MG Oral Tablet 10/29/2021 Pro vider: MARIEL COLLADO DO Diagnosis: TAKE 1 TABLET BY MOUTH TWICE A DAY Last Documented On 10/29/2021 5:20PM By FARAZ RUFF ; [facility] HumaLOG KwikPen 100 UNIT/ML Subcutaneous Solution Pen-injector 10/01/2021 Provider: MARIEL COLLADO DO Diagnosis: USE 4 TIMES A DAY PER SLIDIN G SCALE UP TO A MAX OF 30 UNITS PER DAY Last Documented On 10/01/2021 9:04AM By MARIEL COLLADO DO ; [facility] Lantus SoloStar 100 UNIT/ML Subcutaneous Solution Pen-injector 09/17/2021 Provider: MARIEL COLLADO DO Diagnosis: INJECT 22 UNIT SUBCUTANEOUS DAILY Last Documented On 09/17/2021 4:39PM By MARIEL COLLADO DO ; [facility] Metoprolol Tartrate 25 MG Oral Tablet 03/27/2021 Pro vider: MINE PASTRANA PA-C Diagnosis: Last Documented On 03/27/2021 5:33PM By Matilde Sena ; [facility] Lantus 100 UNIT/ML Subcutaneous Solution 03/27/2021 Provider: Diagnosis: inject 22 unit sub-q dailydispense QS x 1 month supply Last Documented On 03/27/2021 5:35PM By Matilde Sena ; [facility] Losartan Potassium 25 MG Oral Tablet 03/27/2021 Prov ider: Diagnosis: Last Documented On 03/27/2021 5:34PM By Matilde Sena ; [facility] Ferrous Sulfate 325 (65 Fe) MG Oral Tablet 02/13/2021 Provider: Diagnosis: Last Documented On 11:33AM By Ema RUFF ; [facility] levoFLOXacin 250 MG Oral Tablet 02/13/2021 Provider: Diagnosis: Last Documented On 11:35AM By Ema RUFF ; [facility] HumaLOG 100 UNIT/ML Subcutaneous Solution Cartridge Provider: Diagnosis: Last Documented On 11:34AM By Ema RUFF ; [facility] Amethia 0.15-0.03 &0.01 MG Oral Tablet 01/31/2021 Pr ovider: Diagnosis: Last Documented On 01/31/2021 10:20AM By BLADE COELHO DO ; [facility] Medications Administered Includes: Administered Medications from this encounter No Administered Medications Recorded Results Includes: Results discussed during this encounter No Results Recorded For Specified Dates History of Present Illness Includes: History of Present Illness from this encounter No History of Present Illness Recorded Social History No Social History Recorded - Smoking Status Unknown Medical History Includes: Medical History addressed during this encounter No Medical History Recorded Family History Includes: Family History addressed during this encounter No Family History Recorded Review of Systems Includes: Review of Systems from this encounter No Review of Systems Recorded Mental Status Includes: Mental Status from this encounter No Mental Status Recorded Functional Status Includes: Functional Status from this encounter No Functional Status Recorded Physical Exam Includes: Physical Exam from this encounter No Physical Exam Recorded Allergies Includes: Active Allergies Substance Type Reaction Onset Date Resolved Date Statu s Penicillins Allergy 01/31/2021 Active Last Documented On 1 11:12AM ; [facility] Adhesive Tape Allergy Skin Rashes / Eruption of skin 02/27 Active Last Documented On 11:12AM ; [facility] Encounters Encounter Provider Location Date Check-In Time Check-Out Time Diagnosis * PHONE CALL ARUN CUBA D.O. 11/03/2021 1:10PM 11:59PM Insurance Includes: Active Insurance Policies Plan Name Member ID Group # Subscriber Relationship Effect cari Dates 1 - [facility] [id number] SAL MITCHELL Self Clinical Notes Includes: Clinical Notes from this encounter No Clinical Notes Recorded
--- OUTSIDE RECORDS SUMMARY | 2025-02-05 17:10 | XMS_ITS ---
Care Plan - [facility] Created on: February 05, 2025 SAL MITCHELL : 1980 Sex: Female Author Organization [facility] Address [address] [place] [address] Phone Care Team Providers Care Core Drilling Supervisor Name Role Phone Unavailable Unavailable Unavailable
--- OUTSIDE RECORDS SUMMARY | 2025-02-05 17:10 | XMS_ITS | Clinical Summary ---
Author Organization [facility] Address [address] [place] [address] Phone Care Team Providers Care Vp Talent Management Name Role Phone Unavailable Unavailable Unavailable Reason for Visit and Chief Complaint * PHONE CALL Problems Includes: Problems addressed during this encounter and other active Problems All Visits Onset Date Resolved Date Provider Condition S tatus Adjustment Disorder with Depressed Mood 02/27/2021 MATILDE L YOLETTE DO Active Last Documented On 02/27/2021 12:39PM ; [facility] Note: Unchanged Sebaceous Cyst 02/27/2021 MATILDE L YOLETTE DO Ac tive Last Documented On 02/27/2021 12:41PM ; [facility] Note: Unchanged Diabetes Mellitus Type 2 02/13/2021 MATILDE L YOLETTE DO Active Last Documented On 1 1:19PM ; [facility] 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 02/13/2021 MATILDE L MCCONK EY DO Active Last Documented On 1 1:23PM ; [facility] Note: Unchanged Diabetes Mellitus with Foot Ulcer 02/13/2021 IS OSMAN L YOLETTE DO Active Last Documented On 1 1:20PM ; [facility] Essential Hypertension 02/13/2021 MATILDE L MCCONK EY DO Active Last Documented On 1 1:20PM ; [facility] Iron Deficiency Anemia 02/13/2021 MATILDE L MCCONK EY DO Active Last Documented On 1 1:23PM ; [facility] Note: Unchanged 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 02/13/2021 I SHA L YOLETTE DO Active Last Documented On 1 1:19PM ; [facility] Plan of Treatment No Plan of Treatment [...] On 10/29/2021 5:20PM By FARAZ RUFF ; [facility] Citalopram Hydrobromide 10 MG Oral Tablet 10/29/2021 Provider: ARUN Buchanan Diagnosis: Adjustment disor sb with depressed mood TAKE 1 TABLET BY MOUTH EVERY DAY Last Documented On 10/29/2021 5:21PM By FARAZ RUFF ; [facility] Metoprolol Tartrate 25 MG Oral Tablet 10/29/2021 Pro vider: MARIEL COLLADO DO Diagnosis: TAKE 1 TABLET BY MOUTH TWICE A DAY Last Documented On 10/29/2021 5:20PM By FARAZ RUFF ; [facility] HumaLOG KwikPen 100 UNIT/ML Subcutaneous Solution Pen-injector 10/01/2021 Provider: MARIEL COLLADO DO Diagnosis: USE 4 TIMES A DAY PER SLIDIN G SCALE UP TO A MAX OF 30 UNITS PER DAY Last Documented On 10/01/2021 9:04AM By MARIEL COLLADO DO ; [facility] Lantus SoloStar 100 UNIT/ML Subcutaneous Solution Pen-injector 09/17/2021 Provider: MARIEL COLLADO DO Diagnosis: INJECT 22 UNIT SUBCUTANEOUS DAILY Last Documented On 09/17/2021 4:39PM By MARIEL COLLADO DO ; [facility] Metoprolol Tartrate 25 MG Oral Tablet 03/27/2021 Pro vider: MINE PASTRANA PA-C Diagnosis: Last Documented On 03/27/2021 5:33PM By Matilde Sena ; [facility] Lantus 100 UNIT/ML Subcutaneous Solution 03/27/2021 Provider: Diagnosis: inject 22 unit sub-q dailydispense QS x 1 month supply Last Documented On 03/27/2021 5:35PM By Matilde Sena ; [facility] Losartan Potassium 25 MG Oral Tablet 03/27/2021 Prov ider: Diagnosis: Last Documented On 03/27/2021 5:34PM By Matilde Sena ; [facility] Ferrous Sulfate 325 (65 Fe) MG Oral Tablet 02/13/2021 Provider: Diagnosis: Last Documented On 1 11:33AM By Ema RUFF ; [facility] levoFLOXacin 250 MG Oral Tablet 02/13/2021 Provider: Diagnosis: Last Documented On 1 11:35AM By Ema RUFF ; [facility] HumaLOG 100 UNIT/ML Subcutaneous Solution Cartridge Provider: Diagnosis: Last Documented On 1 11:34AM By Ema RUFF ; [facility] Amethia 0.15-0.03 &0.01 MG Oral Tablet 01/31/2021 Pr ovider: Diagnosis: Last Documented On 01/31/2021 10:20AM By BLADE COELHO DO ; [facility] Medications Administered Includes: Administered Medications from this encounter No Administered Medications Recorded Results Includes: Results discussed during this encounter No Results Recorded For Specified Dates History of Present Illness Includes: History of Present Illness from this encounter No History of Present Illness Recorded Social History Description Last Updated Tobacco non-user 02/13/2021 Last Documented On 2 12:55PM ; [facility] Smoking Status Unknown Medical History Includes: Medical History addressed during this encounter Description Last Updated Diabetes 05/29/2021 Last Documented On 2 12:55PM ; [facility] Family History Includes: Family History addressed during [...] Active Last Documented On 1 11:12AM ; [facility] Adhesive Tape Allergy Skin Rashes / Eruption of skin 02/27 Active Last Documented On 1 11:12AM ; [facility] Encounters Encounter Provider Location Date Check-In Time Check-Out Time Diagnosis * PHONE CALL CHINYERE VERGARA DPMiles 08/21/2021 12:53PM 11:59PM Insurance Includes: Active Insurance Policies Plan Name Member ID Group # Subscriber Relationship Effect cari Dates 1 - [facility] [id number] SAL MITCHELL Self Clinical Notes Includes: Clinical Notes from this encounter No Clinical Notes Recorded
--- OUTSIDE RECORDS SUMMARY | 2025-02-05 17:11 | XMS_ITS | Clinical Summary ---
Author Organization [facility] Address [address] [place] [address] Phone Care Team Providers Care Beach Expert Name Role Phone Unavailable Unavailable Unavailable Reason for Visit and Chief Complaint CHECK UP Problems Includes: Problems addressed during this encounter and other active Problems All Visits Onset Date Resolved Date Provider Condition S tatus Adjustment Disorder with Depressed Mood 02/27/2021 MATILDE L YOLETTE DO Active Last Documented On 02/27/2021 12:39PM ; [facility] Note: Unchanged Sebaceous Cyst 02/27/2021 MATILDE L YOLETTE DO Ac tive Last Documented On 02/27/2021 12:41PM ; [facility] Note: Unchanged Diabetes Mellitus Type 2 02/13/2021 MATILDE L YOLETTE DO Active Last Documented On 1 1:19PM ; [facility] 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 02/13/2021 MATILDE L MCCONK EY DO Active Last Documented On 1 1:23PM ; [facility] Note: Unchanged Diabetes Mellitus with Foot Ulcer 02/13/2021 IS OSMAN L YOLETTE DO Active Last Documented On 1 1:20PM ; [facility] Essential Hypertension 02/13/2021 MATILDE L MCCONK EY DO Active Last Documented On 1 1:20PM ; [facility] Iron Deficiency Anemia 02/13/2021 MATILDE L MCCONK EY DO Active Last Documented On 1 1:23PM ; [facility] Note: Unchanged 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 02/13/2021 I SHA L YOLETTE DO Active Last Documented On 1 1:19PM ; [facility] Plan of Treatment No Plan of Treatment [...] 5:20PM By FARAZ RUFF ; [facility] Citalopram Hydrobromide 10 MG Oral Tablet 10/29/2021 Provider: ARUN Buchanan Diagnosis: Adjustment disor sb with depressed mood TAKE 1 TABLET BY MOUTH EVERY DAY Last Documented On 10/29/2021 5:21PM By FARAZ RUFF ; [facility] Metoprolol Tartrate 25 MG Oral Tablet 10/29/2021 Pro vider: MARIEL COLLADO DO Diagnosis: TAKE 1 TABLET BY MOUTH TWICE A DAY Last Documented On 10/29/2021 5:20PM By FARAZ RUFF ; [facility] HumaLOG KwikPen 100 UNIT/ML Subcutaneous Solution Pen-injector 10/01/2021 Provider: MARIEL COLLADO DO Diagnosis: USE 4 TIMES A DAY PER SLIDIN G SCALE UP TO A MAX OF 30 UNITS PER DAY Last Documented On 10/01/2021 9:04AM By MARIEL COLLADO DO ; [facility] Lantus SoloStar 100 UNIT/ML Subcutaneous Solution Pen-injector 09/17/2021 Provider: MARIEL COLLADO DO Diagnosis: INJECT 22 UNIT SUBCUTANEOUS DAILY Last Documented On 09/17/2021 4:39PM By MARIEL COLLADO DO ; [facility] Metoprolol Tartrate 25 MG Oral Tablet 03/27/2021 Pro vider: MINE PASTRANA PA-C Diagnosis: Last Documented On 03/27/2021 5:33PM By Matilde Sena ; [facility] Lantus 100 UNIT/ML Subcutaneous Solution 03/27/2021 Provider: Diagnosis: inject 22 unit sub-q dailydispense QS x 1 month supply Last Documented On 03/27/2021 5:35PM By Matilde Sena ; [facility] Losartan Potassium 25 MG Oral Tablet 03/27/2021 Prov ider: Diagnosis: Last Documented On 03/27/2021 5:34PM By Matilde Sena ; [facility] Ferrous Sulfate 325 (65 Fe) MG Oral Tablet 02/13/2021 Provider: Diagnosis: Last Documented On 11:33AM By Ema RUFF ; [facility] levoFLOXacin 250 MG Oral Tablet 02/13/2021 Provider: Diagnosis: Last Documented On 11:35AM By Ema RUFF ; [facility] HumaLOG 100 UNIT/ML Subcutaneous Solution Cartridge Provider: Diagnosis: Last Documented On 11:34AM By Ema RUFF ; [facility] Amethia 0.15-0.03 &0.01 MG Oral Tablet 01/31/2021 Pr ovider: Diagnosis: Last Documented On 01/31/2021 10:20AM By BLADE COELHO DO ; [facility] Medications Administered Includes: Administered Medications from this [...] Penicillins Allergy 01/31/2021 Active Last Documented On 11:12AM ; [facility] Adhesive Tape Allergy Skin Rashes / Eruption of skin 02/27 Active Last Documented On 11:12AM ; [facility] Encounters Encounter Provider Location Date Check-In Time Check-Out Time Diagnosis CHECK UP CHINYERE VERGARA DPM [facility] 08/28/2021 10:00AM 11:59PM Insurance Includes: Active Insurance Policies Plan Name Member ID Group # Subscriber Relationship Effect cari Dates 1 - [facility] [id number] SAL MITCHELL Self Clinical Notes Includes: Clinical Notes from this encounter No Clinical Notes Recorded
--- OUTSIDE RECORDS SUMMARY | 2025-02-05 17:11 | XMS_ITS | Clinical Summary ---
Author Organization [facility] Address [address] [place] [address] Phone Care Team Providers Care Tanning Solution Maker Name Role Phone Unavailable Unavailable Unavailable Reason for Visit and Chief Complaint PODIATRY CONSULTATION- ESTABLISHED PATIENT Problems Includes: Problems addressed during this encounter and other active Problems All Visits Onset Date Resolved Date Provider Condition S tatus Adjustment Disorder with Depressed Mood 02/27/2021 MATILDE L YOLETTE DO Active Last Documented On 02/27/2021 12:39PM ; [facility] Note: Unchanged Sebaceous Cyst 02/27/2021 MATILDE L YOLETTE DO Ac tive Last Documented On 02/27/2021 12:41PM ; [facility] Note: Unchanged Diabetes Mellitus Type 2 02/13/2021 MATILDE L YOLETTE DO Active Last Documented On 1 1:19PM ; 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 Note: Unchanged Diabetes Mellitus with Foot Ulcer 02/13/2021 IS OSMNA L YOLETTE DO Active Last Documented On 1 1:20PM ; [facility] Essential Hypertension 02/13/2021 MATILDE L MCCONK EY DO Active Last Documented On 1 1:20PM ; [facility] Iron Deficiency Anemia 02/13/2021 MATILDE L MCCONK EY DO Active Last Documented On 1 1:23PM ; 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 02/13/2021 I SHA L YOLETTE DO Active Last Documented On 1:19PM ; [facility] Plan of Treatment No Plan of Treatment [...] On 10/29/2021 5:20PM By FARAZ RUFF ; [facility] Citalopram Hydrobromide 10 MG Oral Tablet 10/29/2021 Provider: ARUN Buchanan Diagnosis: Adjustment disor sb with depressed mood TAKE 1 TABLET BY MOUTH EVERY DAY Last Documented On 10/29/2021 5:21PM By FARAZ RUFF ; [facility] Metoprolol Tartrate 25 MG Oral Tablet 10/29/2021 Pro vider: MARIEL COLLADO DO Diagnosis: TAKE 1 TABLET BY MOUTH TWICE A DAY Last Documented On 10/29/2021 5:20PM By FARAZ RUFF ; [facility] HumaLOG KwikPen 100 UNIT/ML Subcutaneous Solution Pen-injector 10/01/2021 Provider: MARIEL COLLADO DO Diagnosis: USE 4 TIMES A DAY PER SLIDIN G SCALE UP TO A MAX OF 30 UNITS PER DAY Last Documented On 10/01/2021 9:04AM By MARIEL COLLADO DO ; [facility] Lantus SoloStar 100 UNIT/ML Subcutaneous Solution Pen-injector 09/17/2021 Provider: MARIEL COLLADO DO Diagnosis: INJECT 22 UNIT SUBCUTANEOUS DAILY Last Documented On 09/17/2021 4:39PM By MARIEL COLLADO DO ; [facility] Metoprolol Tartrate 25 MG Oral Tablet 03/27/2021 Pro vider: MINE PASTRANA PA-C Diagnosis: Last Documented On 03/27/2021 5:33PM By Matilde Sena ; [facility] Lantus 100 UNIT/ML Subcutaneous Solution 03/27/2021 Provider: Diagnosis: inject 22 unit sub-q dailydispense QS x 1 month supply Last Documented On 03/27/2021 5:35PM By Matilde Sena ; [facility] Losartan Potassium 25 MG Oral Tablet 03/27/2021 Prov ider: Diagnosis: Last Documented On 03/27/2021 5:34PM By Matilde Sena ; [facility] Ferrous Sulfate 325 (65 Fe) MG Oral Tablet 02/13/2021 Provider: Diagnosis: Last Documented On 11:33AM By Ema RUFF ; [facility] levoFLOXacin 250 MG Oral Tablet 02/13/2021 Provider: Diagnosis: Last Documented On 11:35AM By Ema RUFF ; [facility] HumaLOG 100 UNIT/ML Subcutaneous Solution Cartridge Provider: Diagnosis: Last Documented On 11:34AM By Ema RUFF ; [facility] Amethia 0.15-0.03 &0.01 MG Oral Tablet 01/31/2021 Pr ovider: Diagnosis: Last Documented On 01/31/2021 10:20AM By BLADE COELHO DO ; [facility] Medications Administered Includes: Administered Medications from this [...] 01/31/2021 Active Last Documented On 11:12AM ; [facility] Adhesive Tape Allergy Skin Rashes / Eruption of skin 02/27 Active Last Documented On 11:12AM ; [facility] Insurance Includes: Active Insurance Policies Plan Name Member ID Group # Subscriber Relationship Effect cari Dates 1 - [facility] [id number] SAL Cota Clinical Notes Includes: Clinical Notes from this encounter No Clinical Notes Recorded
--- OUTSIDE RECORDS SUMMARY | 2025-02-05 17:11 | XMS_ITS | Clinical Summary ---
Author Organization [facility] [employer] Address [address] [place] [address] Care Team Providers Care Audio Experience Expert Name Role Phone Unavailable Primary Care Provider Unavailabl e Source Comments [facility] [employer],non-owned Affiliates and Associated Physician Practices is amultiple site organization consisting of ambulatory clinics and hospital sitesin [place], [place], [place] and [place]. This disclosure is being madepursuant to the Care Everywhere program and may not contain all information available regarding this patient. Last updated 18.[facility] [employer] Allergies Active Allergy Reactions Criticality Noted Date Comments Penicillins Rash Low 10/13/2015 Medications * Be aware that medications may not be up to date on this document. Alwaysverify current medications with the patient. Vit-Fe Fumarate-FA ( VITAMIN) 28-0.8 MG tablet Take 1 Tab by mouth once daily Active vitamin D3 (CHOLECALCIFERO L) 1000 UNITS tablet Take 1,000 Units by mouth once daily Active oxyCODONE-aceta minophen (PERCOCET) 5-325 MG tablet Take 1-2 Tabs by mouth every 4 hours as needed 40 Tab 0 10/23/19 16 Active ibuprofen (MOTRIN) 600 MG tablet Take 1 Tab by mouth every 6 hours while awake 60 Tab 0 10/23/19 16 Active metFORMIN (GLUCOPHAGE) 1000 MG tablet Take 1 Tab by mouth 2 times daily with morning and evening meal 60 Tab 1 10/23/19 16 Active NIFEdipine CR 24hr (ADALAT CC) 60 MG tablet Take 1 Tab by mouth 2 times daily,before breakfast and supper Take on an empty stomach. 60 Tab 1 10/23/19 16 Active bisACODYL (DULCOLAX) 10 MG suppository Insert 1 Suppository into the rectum once daily as needed for Constipation 10 Suppository 0 10/23/19 16 Active docusate sodium (COLACE) 100 MG capsule Take 1 Cap by mouth 2 times daily 60 Cap 1 10/23/19 16 Active ferrous sulfate 325 (65 FE) MG tablet Take 1 Tab by mouth daily with breakfast 30 Tab 0 10/23/19 16 Active polyethylene glycol 3350 (MIRALAX) packet Take 17 g by mouth once daily as needed for Constipation 12 Packet 0 10/23/19 16 Active insulin NPH (HUMULIN N) vial Inject 20 Units subcutaneously every morning 10 mL 0 10/23/19 16 Active Active Problems Problem Noted Date Diagnosed Date Breech presentation 10/19/2015 Supervision of high risk in third trim dorinda 10/13/2015 T2DM (type 2 diabetes mellitus) 10/13/2015 Preeclampsia 10/13/2015 Morbid obesity due to excess calories IUGR (intrauterine growth re striction) affecting care of mother Type 2 diabetes mellitus without complication Overview (01/23/2025): IMO 01/23/2025 Abnormal test Severe pre-eclampsia in third trimester Type 2 diabetes mellitus with complication state S/P section Family History Medical History Relation Name Comments Defects Neg Hx Social History Tobacco Use Types Packs/Day Years Used Date Smoking Tobacco: Never Alcohol Use Standard Drinks/Week Comments No 0 (1 standard drink = 0.6 oz pur e alcohol) Comments No Sex and Gender Information Value Date Recorded Sex Assigned at Not on file Legal Sex Female 2:34 PM CDT Gender Identity Not on file Sexual Orientation Not on file Last Filed Vital Signs Vital Sign Reading Time Taken Comments Blood Pressure 128/82 10/23/2015 9:35 AM CDT Pulse 107 10/23/2015 8:10 AM CDT Temperature 36.8 C (98.2 F) 10/23/2015 8:10 AM CDT Respiratory Rate 18 10/23/2015 8:10 AM CDT Oxygen Saturation 98% 10/23/2015 5:40 AM CDT Inhaled Oxygen Concentration - - Weight 109.7 kg (241 lb 14.4 oz) 10/18/2015 5:25 AM CDT Height 167.6 cm (5' 6) 10/17/2015 6:10 AM CDT Body Mass Index 39.04 10/17/2015 6:10 AM CDT Plan of Treatment Health Maintenance Due Date Last Done Comments LIPID TESTING 1982 MAMMOGRAM 1982 HIV SCREENING 1997 DTAP/TDAP/TD VACCINES (1 - Tdap) 2001 HEPATITIS B VACCINE (1 of 3 - 19+ 3-dose series) 2001 PNEUMOCOCCAL VACCINE (1 of 2 - PCV) 2001 PAP SMEAR 2003 HPV VACCINE (1 - 3-dose SCDM series) 2009 DEPRESSION SCREENING 04/25/2024 COVID-19 VACCINE (1 - 2023-2 5 season) 2024 INFLUENZA VACCINE (#1) 2024 03/24/2018 ZOSTER VACCINE (1 of 2) 02/22/2032 HEPATITIS C SCREENING Completed 03/21/2018 HIB VACCINE Aged Out No longer eligi ble based on patient's age to complete this topic MENINGOCOCCAL (Group B) VACC INE SHARED DECISION-MAKING Aged Out No longer eligibl e based on patient's age to complete this topic MENINGOCOCCAL GROUPS A/C/Y/W VACCINE Aged Out No longer eligible b ased on patient's age to complete this topic Insurance [facility] Advance Directives * Full Code (Latest Code Status on File) Date Activated Date Inactivated Comments 10/18/2015 10:42 PM 10/23/2015 4:57 PM * Full Code Date Activated Date Inactivated Comments 10/13/2015 3:21 PM 10/18/2015 10:42 PM
--- OUTSIDE RECORDS SUMMARY | 2025-02-05 17:11 | XMS_ITS | Clinical Summary ---
Author Organization [facility] Address [address] [place] [address] Phone Care Team Providers Care Fountain Helper Name Role Phone Unavailable Unavailable Unavailable Reason for Visit and Chief Complaint The Chief Complaint is: Check up of foot surgery, The Chief Complaint is: CHECK UP ON AMPUTATION OFRT BIG TOE Problems Includes: Problems addressed during this encounter and other active Problems All Visits Onset Date Resolved Date Provider Condition S tatus Adjustment Disorder with Depressed Mood 02/27/2021 MATILDE L YOLETTE DO Active Last Documented On 02/27/2021 12:39PM ; [facility] Note: Unchanged Sebaceous Cyst 02/27/2021 MATILDE L YOLETTE DO Ac tive Last Documented On 02/27/2021 12:41PM ; [facility] Note: Unchanged Diabetes Mellitus Type 2 02/13/2021 MATILDE L YOLETTE DO Active Last Documented On 1 1:19PM ; [facility] 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 02/13/2021 MATILDE L AMANDAONK EY DO Active Last Documented On 1 1:23PM ; [facility] Note: Unchanged Diabetes Mellitus with Foot Ulcer 02/13/2021 IS OSMAN L YOLETTE DO Active Last Documented On 1 1:20PM ; [facility] Essential Hypertension 02/13/2021 MATILDE L MCCONK EY DO Active Last Documented On 1 1:20PM ; [facility] Iron Deficiency Anemia 02/13/2021 MATILDE L MCCONK EY DO Active Last Documented On 1 1:23PM ; [facility] Note: Unchanged 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 Discussed treatment options with the patient. Discussed with patient proper care and hygeine for their feet. Patient tolerated procedures well without incident. Procedure: (55363 Debridement of toenails 6-10) Surgically debrided and mechanically reduced 6 or more toenails specifically nails 1-5 left and 1-5 right. Hemmorhage occurred none. . - Last Documented On 05/29/2021 10:44AM ; [facility] Diabetic education and instructions have been provided. We reviewed and discussed the following: - Risk categories related to pts with diabetes and foot or lower extremity complications per ADA. Adherence to medication regimen and close monitoring or blood sugar control. Daily monitoring/inspection of feet and shoes. Proper management of diet and weight Regular follow up with PCP and specialty providers as recommended Lower extremity complications related to DM were reviewed and stressed prevention. - Patient was educated on high pressure areas including risks and offloading solutions. - Reviewed with patient proper foot care instructions and daily self-examination and monitoring of the feet. - Patient was instructed to check feet daily for blisters, cuts, red spots, and swelling. - Patient instructed to use a mirror to check bottom of feet or ask a family member for help if unable check bottom of feet themselves. - Patient instructed to wash feet in warm not hot water daily. - Patient instructed to dry feet well especially between toes. - Patient instructed to apply cream on top and bottom of feet, but not in between toes. - Patient instructed to smooth corns and calluses gently with pumice stone - Patient instructed to wear shoes and socks at all times, never go barefoot. - Wear comfortable shoes that fit well and protect feet. - Patient instructed to check shoes before putting them on and taking them off each time to make sure the lining is smooth and there are no objects inside or stuck in sole. - Check socks for drainage or blood when taking them off. - Patient instructed to wear socks at night if feet get cold. - Patient instructed to elevate feet while sitting to improve blood flow. - Advised against smoking, and drinking alcohol in excess. - Patient advised to remain as active as possible and work with PCP to keep blood sugar in a safe range. - Patient counseled that they may not feel pain or injury due to loss of sensation and advised to call us right away if a cut, sore, blister, or bruise on foot does not begin to heal after one day. Patient was educated about the systemic risks of diabetes and importance of proper glucose control, dangers of neuropathy and loss of gift of pain and risk stratification and exam frequency. - Patient was educated on HgbA1c. - Rx deep wide toe box shoes with heat molded inserts to accommodate structural pathology - Pt was encouraged to call with any questions or concerns. All questions answered at today's visit. RTC in 3 Months ONYCHOMYCOSIS (FUNGUS NAIL) Clinic evidence of mycosis of the nail Positive culture complete on: Medical Evidence Documenting Podiatric Care Limitation of ambulation requiring active treatment of the foot, ambulatory patient. Non-ambulatory patient with diagnoses likely to result in significant medical complication in the absence of such treatment. Non-ambulatory patient requiring active treatment of the foot to prevent complications. 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 Absent posterior tibial (ankle) pulse 2. Advanced trophic changes: {Indicate three (minimum) trophic changes from this list} Hair growth (decrease) Nail changes (thickening) Pigmentary changes (discoloration) Skin color (rubor or redness) Skin texture (thin, shiny) 3. Absent dorsalis pedis (foot) pulse (pedal pulses) left CLASS C FINDINGS/Q9: (minimum of 2) Burning Claudication Edema Paresthesia (numbness, tingling) Temperature changes (cold feet) - Last Documented On 05/29/2021 10:44AM ; [facility] Diabetic education and instructions have been provided. We reviewed and discussed the following: - Risk categories related to pts with diabetes and foot or lower extremity complications per ADA. Adherence to medication regimen and close monitoring or blood sugar control. Daily monitoring/inspection of feet and shoes. Proper management of diet and weight Regular follow up with PCP and specialty providers as recommended Lower extremity complications related to DM were reviewed and stressed prevention. - Patient was educated on high pressure areas including risks and offloading solutions. - Reviewed with patient proper foot care instructions and daily self-examination and monitoring of the feet. - Patient was instructed to check feet daily for blisters, cuts, red spots, and swelling. - Patient instructed to use a mirror to check bottom of feet or ask a family member for help if unable check bottom of feet themselves. - Patient instructed to wash feet in warm not hot water daily. - Patient instructed to dry feet well especially between toes. - Patient instructed to apply cream on top and bottom of feet, but not in between toes. - Patient instructed to smooth corns and calluses gently with pumice stone - Patient instructed to wear shoes and socks at all times, never go barefoot. - Wear comfortable shoes that fit well and protect feet. - Patient instructed to check shoes before putting them on and taking them off each time to make sure the lining is smooth and there are no objects inside or stuck in sole. - Check socks for drainage or blood when taking them off. - Patient instructed to wear socks at night if feet get cold. - Patient instructed to elevate feet while sitting to improve blood flow. - Advised against smoking, and drinking alcohol in excess. - Patient advised to remain as active as possible and work with PCP to keep blood sugar in a safe range. - Patient counseled that they may not feel pain or injury due to loss of sensation and advised to call us right away if a cut, sore, blister, or bruise on foot does not begin to heal after one day. Patient was educated about the systemic risks of diabetes and importance of proper glucose control, dangers of neuropathy and loss of gift of pain and risk stratification and exam frequency. - Patient was educated on HgbA1c. - Rx deep wide toe box shoes with heat molded inserts to accommodate structural pathology - Pt was encouraged to call with any questions or concerns. All questions answered at today's visit. RTC in 3 Months ONYCHOMYCOSIS (FUNGUS NAIL) Clinic evidence of mycosis of the nail Positive culture complete on: Medical Evidence Documenting Podiatric Care Limitation of ambulation requiring active treatment of the foot, ambulatory patient. Non-ambulatory patient with diagnoses likely to result in significant medical complication in the absence of such treatment. Non-ambulatory patient requiring active treatment of the foot to prevent complications. 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 Absent posterior tibial (ankle) pulse 2. Advanced trophic changes: {Indicate three (minimum) trophic changes from this list} Hair growth (decrease) Nail changes (thickening) Pigmentary changes (discoloration) Skin color (rubor or redness) Skin texture (thin, shiny) 3. Absent dorsalis pedis (foot) pulse (pedal pulses) left CLASS C FINDINGS/Q9: (minimum of 2) Burning Claudication Edema Paresthesia (numbness, tingling) Temperature changes (cold feet) - Last Documented On 05/29/2021 10:44AM ; [facility] Assessments Includes: Assessments from this encounter Findings - [E11.42 - Type 2 diabetes mellitus with diabetic polyneuropathy] Type 2 diabetes with diabetic polyneuropathy - Last Documented On 05/29/2021 10:44AM ; [facility] - [B35.1 - Tinea unguium] Onychomycosis - Last Documented On 05/29/2021 10:44AM ; [facility] - [M20.40 - Other hammer toe(s) (acquired), unspecified foot] Hammer toe - Last Documented On 05/29/2021 10:44AM ; [facility] - [Z89.431 - Acquired absence of right foot] Lower limb amputation at the foot - Last Documented On 05/29/2021 10:44AM ; [facility] Medical Equipment - Implanted Devices Includes: Current Devices No Medical Equipment Recorded Medications Includes: Medications discussed during this encounter and other current Medications Current Medications (continue as prescribed) Losartan Potassium 25 MG Oral Tablet 10/29/2021 Prov ider: ARUN CUBA D.O. Diagnosis: TAKE 1 TABLET BY MOUTH EVERY DAY Last Documented On 10/29/2021 5:20PM By FARAZ RUFF ; [facility] Citalopram Hydrobromide 10 MG Oral Tablet 10/29/2021 Provider: ARUN Buchanan Diagnosis: Adjustment disor sb with depressed mood TAKE 1 TABLET BY MOUTH EVERY DAY Last Documented On 10/29/2021 5:21PM By FARAZ RUFF ; [facility] Metoprolol Tartrate 25 MG Oral Tablet 10/29/2021 Pro vider: AMRIEL COLLADO DO Diagnosis: TAKE 1 TABLET BY MOUTH TWICE A DAY Last Documented On 10/29/2021 5:20PM By FARAZ RUFF ; [facility] HumaLOG KwikPen 100 UNIT/ML Subcutaneous Solution Pen-injector 10/01/2021 Provider: MARIEL COLLADO DO Diagnosis: USE 4 TIMES A DAY PER SLIDIN G SCALE UP TO A MAX OF 30 UNITS PER DAY Last Documented On 10/01/2021 9:04AM By MARIEL COLLADO DO ; [facility] Lantus SoloStar 100 UNIT/ML Subcutaneous Solution Pen-injector 09/17/2021 Provider: MARIEL COLLADO DO Diagnosis: INJECT 22 UNIT SUBCUTANEOUS DAILY Last Documented On 09/17/2021 4:39PM By MARIEL COLLADO DO ; [facility] Metoprolol Tartrate 25 MG Oral Tablet 03/27/2021 Pro vider: MINE PASTRANA PA-C Diagnosis: Last Documented On 03/27/2021 5:33PM By Matilde Sena ; [facility] Lantus 100 UNIT/ML Subcutaneous Solution 03/27/2021 Provider: Diagnosis: inject 22 unit sub-q dailydispense QS x 1 month supply Last Documented On 03/27/2021 5:35PM By Matilde Sena ; [facility] Losartan Potassium 25 MG Oral Tablet 03/27/2021 Prov ider: Diagnosis: Last Documented On 03/27/2021 5:34PM By Matilde Sena ; [facility] Ferrous Sulfate 325 (65 Fe) MG Oral Tablet 02/13/2021 Provider: Diagnosis: Last Documented On 11:33AM By Ema RUFF ; [facility] levoFLOXacin 250 MG Oral Tablet 02/13/2021 Provider: Diagnosis: Last Documented On 11:35AM By Ema RUFF ; [facility] HumaLOG 100 UNIT/ML Subcutaneous Solution Cartridge Provider: Diagnosis: Last Documented On 11:34AM By Ema RUFF ; [facility] Amethia 0.15-0.03 &0.01 MG Oral Tablet 01/31/2021 Pr ovider: Diagnosis: Last Documented On 01/31/2021 10:20AM By BLADE COELHO DO ; [facility] Medications Administered Includes: Administered Medications from this encounter No Administered Medications Recorded Vital Signs Includes: Vital Signs from this encounter Vital Name 05/29/2021 09:46A Blood Pressure Sitting R 162/90 BP Cuff Size Regular Pulse Rhythm Regular Temp-Oral (F) 98.3 Height (in) 66 Weight (lb) 211 Body Mass Index (kg/m2) 34.1 Body Surface Area (m2) 2.0 Last Documented: On 05/29/2021 9:47AM ; [facility] Results Includes: Results discussed during this encounter No Results Recorded For Specified Dates History of Present Illness Includes: History of Present Illness from this encounter KERRY MITCHELL is a 41 year old female. - Allergy list reviewed - Problem list reviewed - Medication reconciliation performed - Foot or ankle problem is resolved - Right foot pain dorsal aspect over the forefoot pain/condition location: toe pain/condition started gradually - Pain/condition started months ago Patient is a pleasant 41-year-old female that is well-known to me as she was seen in my wound clinic after she had undergo a partial first ray amputation to the right foot. She healed well and did not have any complications with this. Her most recent hemoglobin A1c was 8.4% on 02/27/2021. Her last appoint with her primary care doctor was on 02/27/2021. She has not heard anything about her diabetic shoes and inserts. She reports that she has not noticed any problems to her surgical amputation foot as far as drainage goes. She does notice some dry skin overlying the incision site which she has been moisturizing this with [employer]. Social History Description Last Updated Not a job-related injury 05/29/2021 Last Documented On 2 10:44AM ; [facility] Tobacco non-user 02/13/2021 Last Documented On 2 9:46AM ; [facility] Smoking Status Unknown Procedures and Surgical History Includes: Procedures from this encounter Procedures Code Diagnosis Performing Provider Service L ocation Service Date encouragement to exercise Last Documented On 2 10:43AM ; [facility] Clinical summary provided to patient Last Documented On 2 10:43AM ; [facility] Medical History Includes: Medical History addressed during this encounter Description Last Updated Diabetes 05/29/2021 Last Documented On 2 10:44AM ; [facility] Family History Includes: Family History addressed during this encounter Description Last Updated Family history of cancer 05/29/2021 Last Documented On 2 10:44AM ; [facility] Maternal history of Chest Pain 2 Last Documented On 2 10:44AM ; [facility] Maternal history of tobacco use 05/29/19 Last Documented On 2 10:44AM ; [facility] Paternal history of Chest Pain 2 Last Documented On 2 10:44AM ; [facility] Paternal history of family medical histo ry of high blood pressure 05/29/2021 Last Documented On 2 10:44AM ; [facility] Paternal history of Nerve Disorder 05/29 Last Documented On 2 10:44AM ; [facility] Paternal history of reported family hist ory of diabetes 05/29/2021 Last Documented On 2 10:44AM ; [facility] Paternal history of stroke syndrome 07/2021 Last Documented On 2 10:44AM ; [facility] Paternal history of tobacco use 05/29/19 Last Documented On 2 10:44AM ; [facility] Review of Systems Includes: Review of Systems from this encounter No Review of Systems Recorded Mental Status Includes: Mental Status from this encounter No Mental Status Recorded Functional Status Includes: Functional Status from this encounter No Functional Status Recorded Physical Exam Includes: Physical Exam from this encounter Allergies Includes: Active Allergies Substance Type Reaction Onset Date Resolved Date Statu s Penicillins Allergy 01/31/2021 Active Last Documented On 1 11:12AM ; [facility] Adhesive Tape Allergy Skin Rashes / Eruption of skin 02/27 Active Last Documented On 11:12AM ; [facility] Encounters Encounter Provider Location Date Check-In Time Check-Out Time Diagnosis PODIATRY CONSULTATION- ESTABLISHED PATIENT CHINYERE VERGARA DPM [facility] 022 9:38AM 10:00AM Acquired Deformity of Toe - Hammer Toe,Type 2 Diabetes with Diabetic Polyneuropathy,L ower Limb Amputation At Foot,Dermatophyt osis Nails Onychomycosis Insurance Includes: Active Insurance Policies Plan Name Member ID Group # Subscriber Relationship Effect cari Dates 1 - [facility] [id number] SAL MITCHELL Self Clinical Notes Includes: Clinical Notes from this encounter No Clinical Notes Recorded
--- OUTSIDE RECORDS SUMMARY | 2025-02-05 17:34 | XMS_ITS | Clinical Summary ---
Author Organization [facility] Address [address] [place] [address] Phone Care Team Providers Care Barrel Handler Name Role Phone Unavailable Primary Care Provider [...] SCREENING 2022 INFLUENZA VACCINE (#1) 2024 Insurance [facility] OPTIONS PPO [id number]
--- OUTSIDE RECORDS SUMMARY | 2025-02-05 17:34 | XMS_ITS | Clinical Summary ---
Author Organization [facility] Address [address] [place] [address] Phone Care Team Providers Care Pin Or Clip Fastener Name Role Phone Unavailable Unavailable Unavailable Reason for Visit and Chief Complaint * PHONE CALL Problems Includes: Problems addressed during this encounter and other active Problems All Visits Onset Date Resolved Date Provider Condition S tatus Adjustment Disorder with Depressed Mood 02/27/2021 MATILDE L YOLETTE DO Active Last Documented On 02/27/2021 12:39PM ; [facility] Note: Unchanged Sebaceous Cyst 02/27/2021 MATILDE L YOLETTE DO Ac tive Last Documented On 02/27/2021 12:41PM ; [facility] Note: Unchanged Diabetes Mellitus Type 2 02/13/2021 MATILDE L YOLETTE DO Active Last Documented On 1 1:19PM ; [facility] 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 02/13/2021 MATILDE L MCCONK EY DO Active Last Documented On 1 1:23PM ; [facility] Note: Unchanged Diabetes Mellitus with Foot Ulcer 02/13/2021 IS OSMAN L YOLETTE DO Active Last Documented On 1 1:20PM ; [facility] Essential Hypertension 02/13/2021 MATILDE L MCCONK EY DO Active Last Documented On 1 1:20PM ; [facility] Iron Deficiency Anemia 02/13/2021 MATILDE L MCCONK EY DO Active Last Documented On 1 1:23PM ; [facility] Note: Unchanged 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 02/13/2021 I SHA L YOLETTE DO Active Last Documented On 1 1:19PM ; [facility] Plan of Treatment No Plan of [...] 5:20PM By FARAZ RUFF ; [facility] Citalopram Hydrobromide 10 MG Oral Tablet 10/29/2021 Provider: ARUN Buchanan Diagnosis: Adjustment disor sb with depressed mood TAKE 1 TABLET BY MOUTH EVERY DAY Last Documented On 10/29/2021 5:21PM By FARAZ RUFF ; [facility] Metoprolol Tartrate 25 MG Oral Tablet 10/29/2021 Pro vider: MARIEL COLLADO DO Diagnosis: TAKE 1 TABLET BY MOUTH TWICE A DAY Last Documented On 10/29/2021 5:20PM By FARAZ RUFF ; [facility] HumaLOG KwikPen 100 UNIT/ML Subcutaneous Solution Pen-injector 10/01/2021 Provider: MARIEL COLLADO DO Diagnosis: USE 4 TIMES A DAY PER SLIDIN G SCALE UP TO A MAX OF 30 UNITS PER DAY Last Documented On 10/01/2021 9:04AM By MARIEL COLLADO DO ; [facility] Lantus SoloStar 100 UNIT/ML Subcutaneous Solution Pen-injector 09/17/2021 Provider: MARIEL COLLADO DO Diagnosis: INJECT 22 UNIT SUBCUTANEOUS DAILY Last Documented On 09/17/2021 4:39PM By MARIEL COLLADO DO ; [facility] Metoprolol Tartrate 25 MG Oral Tablet 03/27/2021 Pro vider: MINE PASTRANA PA-C Diagnosis: Last Documented On 03/27/2021 5:33PM By Matilde Sena ; [facility] Lantus 100 UNIT/ML Subcutaneous Solution 03/27/2021 Provider: Diagnosis: inject 22 unit sub-q dailydispense QS x 1 month supply Last Documented On 03/27/2021 5:35PM By Matilde Sena ; [facility] Losartan Potassium 25 MG Oral Tablet 03/27/2021 Prov ider: Diagnosis: Last Documented On 03/27/2021 5:34PM By Matilde Sena ; [facility] Ferrous Sulfate 325 (65 Fe) MG Oral Tablet 02/13/2021 Provider: Diagnosis: Last Documented On 11:33AM By Ema RUFF ; [facility] levoFLOXacin 250 MG Oral Tablet 02/13/2021 Provider: Diagnosis: Last Documented On 11:35AM By Ema RUFF ; [facility] HumaLOG 100 UNIT/ML Subcutaneous Solution Cartridge Provider: Diagnosis: Last Documented On 11:34AM By Ema RUFF ; [facility] Amethia 0.15-0.03 &0.01 MG Oral Tablet 01/31/2021 Pr ovider: Diagnosis: Last Documented On 01/31/2021 10:20AM By BLADE COELHO DO ; [facility] Medications Administered Includes: Administered Medications from [...] Documented On 1 11:12AM ; [facility] Adhesive Tape Allergy Skin Rashes / Eruption of skin 02/27 Active Last Documented On 11:12AM ; [facility] Encounters Encounter Provider Location Date Check-In Time Check-Out Time Diagnosis * PHONE CALL ARUN CUBA D.O. 11/03/2021 1:10PM 11:59PM Insurance Includes: Active Insurance Policies Plan Name Member ID Group # Subscriber Relationship Effect cari Dates 1 - [facility] [id number] SAL MITCHELL Self Clinical Notes Includes: Clinical Notes from this encounter No Clinical Notes Recorded
--- OUTSIDE RECORDS SUMMARY | 2025-02-05 17:34 | XMS_ITS | Clinical Summary ---
Author Organization [facility] Address [address] [place] [address] Phone Care Team Providers Care It Help Desk Manager Name Role Phone Unavailable Unavailable Unavailable Reason for Visit and Chief Complaint CHECK UP Problems Includes: Problems addressed during this encounter and other active Problems All Visits Onset Date Resolved Date Provider Condition S tatus Adjustment Disorder with Depressed Mood 02/27/2021 MATILDE L YOLETTE DO Active Last Documented On 02/27/2021 12:39PM ; [facility] Note: Unchanged Sebaceous Cyst 02/27/2021 MATILDE L YOLETTE DO Ac tive Last Documented On 02/27/2021 12:41PM ; [facility] Note: Unchanged Diabetes Mellitus Type 2 02/13/2021 MATILDE L YOLETTE DO Active Last Documented On 1 1:19PM ; [facility] 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 02/13/2021 MATILDE L MCCONK EY DO Active Last Documented On 1 1:23PM ; [facility] Note: Unchanged Diabetes Mellitus with Foot Ulcer 02/13/2021 IS OSMAN L YOLETTE DO Active Last Documented On 1 1:20PM ; [facility] Essential Hypertension 02/13/2021 MATILDE L MCCONK EY DO Active Last Documented On 1 1:20PM ; [facility] Iron Deficiency Anemia 02/13/2021 MATILDE L MCCONK EY DO Active Last Documented On 1 1:23PM ; [facility] Note: Unchanged 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 02/13/2021 I SHA L YOLETTE DO Active Last Documented On 1 1:19PM ; [facility] Plan of Treatment No Plan of [...] On 10/29/2021 5:20PM By FARAZ RUFF ; [facility] Citalopram Hydrobromide 10 MG Oral Tablet 10/29/2021 Provider: ARUN Buchanan Diagnosis: Adjustment disor sb with depressed mood TAKE 1 TABLET BY MOUTH EVERY DAY Last Documented On 10/29/2021 5:21PM By FARAZ RUFF ; [facility] Metoprolol Tartrate 25 MG Oral Tablet 10/29/2021 Pro vider: MARIEL COLLADO DO Diagnosis: TAKE 1 TABLET BY MOUTH TWICE A DAY Last Documented On 10/29/2021 5:20PM By FARAZ RUFF ; [facility] HumaLOG KwikPen 100 UNIT/ML Subcutaneous Solution Pen-injector 10/01/2021 Provider: MARIEL COLLADO DO Diagnosis: USE 4 TIMES A DAY PER SLIDIN G SCALE UP TO A MAX OF 30 UNITS PER DAY Last Documented On 10/01/2021 9:04AM By MARIEL COLLADO DO ; [facility] Lantus SoloStar 100 UNIT/ML Subcutaneous Solution Pen-injector 09/17/2021 Provider: MARIEL COLLADO DO Diagnosis: INJECT 22 UNIT SUBCUTANEOUS DAILY Last Documented On 09/17/2021 4:39PM By MARIEL COLLADO DO ; [facility] Metoprolol Tartrate 25 MG Oral Tablet 03/27/2021 Pro vider: MINE PASTRANA PA-C Diagnosis: Last Documented On 03/27/2021 5:33PM By Matilde Sena ; [facility] Lantus 100 UNIT/ML Subcutaneous Solution 03/27/2021 Provider: Diagnosis: inject 22 unit sub-q dailydispense QS x 1 month supply Last Documented On 03/27/2021 5:35PM By Matilde Sena ; [facility] Losartan Potassium 25 MG Oral Tablet 03/27/2021 Prov ider: Diagnosis: Last Documented On 03/27/2021 5:34PM By Matilde Sena ; [facility] Ferrous Sulfate 325 (65 Fe) MG Oral Tablet 02/13/2021 Provider: Diagnosis: Last Documented On 11:33AM By Ema RUFF ; [facility] levoFLOXacin 250 MG Oral Tablet 02/13/2021 Provider: Diagnosis: Last Documented On 11:35AM By Ema RUFF ; [facility] HumaLOG 100 UNIT/ML Subcutaneous Solution Cartridge Provider: Diagnosis: Last Documented On 11:34AM By Ema RUFF ; [facility] Amethia 0.15-0.03 &0.01 MG Oral Tablet 01/31/2021 Pr ovider: Diagnosis: Last Documented On 01/31/2021 10:20AM By BLADE COELHO DO ; [facility] Medications Administered Includes: Administered Medications from [...] 01/31/2021 Active Last Documented On 11:12AM ; [facility] Adhesive Tape Allergy Skin Rashes / Eruption of skin 02/27 Active Last Documented On 11:12AM ; [facility] Encounters Encounter Provider Location Date Check-In Time Check-Out Time Diagnosis CHECK UP CHINYERE VERGARA DPM [facility] 08/28/2021 10:00AM 11:59PM Insurance Includes: Active Insurance Policies Plan Name Member ID Group # Subscriber Relationship Effect cari Dates 1 - [facility] [id number] SAL MITCHELL Self Clinical Notes Includes: Clinical Notes from this encounter No Clinical Notes Recorded
--- OUTSIDE RECORDS SUMMARY | 2025-02-05 17:34 | XMS_ITS | Clinical Summary ---
Author Organization [facility] Address [address] [place] [address] Phone Care Team Providers Care Evaporator Operator Molasses Name Role Phone Unavailable Unavailable Unavailable Reason for Visit and Chief Complaint PODIATRY CONSULTATION- ESTABLISHED PATIENT Problems Includes: Problems addressed during this encounter and other active Problems All Visits Onset Date Resolved Date Provider Condition S tatus Adjustment Disorder with Depressed Mood 02/27/2021 MATILDE L YOLETTE DO Active Last Documented On 02/27/2021 12:39PM ; [facility] Note: Unchanged Sebaceous Cyst 02/27/2021 MATILDE L YOLETTE DO Ac tive Last Documented On 02/27/2021 12:41PM ; [facility] Note: Unchanged Diabetes Mellitus Type 2 02/13/2021 MATILDE L YOLETTE DO Active Last Documented On 1 1:19PM ; [facility] 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 02/13/2021 MATILDE L MCCONK EY DO Active Last Documented On 1 1:23PM ; [facility] Note: Unchanged Diabetes Mellitus with Foot Ulcer 02/13/2021 IS OSMAN L YOLETTE DO Active Last Documented On 1 1:20PM ; [facility] Essential Hypertension 02/13/2021 MATILDE L MCCONK EY DO Active Last Documented On 1 1:20PM ; [facility] Iron Deficiency Anemia 02/13/2021 MATILDE L MCCONK EY DO Active Last Documented On 1 1:23PM ; [facility] Note: Unchanged 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 02/13/2021 I SHA L YOLETTE DO Active Last Documented On 1:19PM ; [facility] Plan of Treatment No Plan of Treatment [...] On 10/29/2021 5:20PM By FARAZ RUFF ; [facility] Citalopram Hydrobromide 10 MG Oral Tablet 10/29/2021 Provider: ARUN Buchanan Diagnosis: Adjustment disor sb with depressed mood TAKE 1 TABLET BY MOUTH EVERY DAY Last Documented On 10/29/2021 5:21PM By FARAZ RUFF ; [facility] Metoprolol Tartrate 25 MG Oral Tablet 10/29/2021 Pro vider: MARIEL COLLADO DO Diagnosis: TAKE 1 TABLET BY MOUTH TWICE A DAY Last Documented On 10/29/2021 5:20PM By FARAZ RUFF ; [facility] HumaLOG KwikPen 100 UNIT/ML Subcutaneous Solution Pen-injector 10/01/2021 Provider: MARIEL COLLADO DO Diagnosis: USE 4 TIMES A DAY PER SLIDIN G SCALE UP TO A MAX OF 30 UNITS PER DAY Last Documented On 10/01/2021 9:04AM By MARIEL COLLADO DO ; [facility] Lantus SoloStar 100 UNIT/ML Subcutaneous Solution Pen-injector 09/17/2021 Provider: MARIEL COLLADO DO Diagnosis: INJECT 22 UNIT SUBCUTANEOUS DAILY Last Documented On 09/17/2021 4:39PM By MARIEL COLLADO DO ; [facility] Metoprolol Tartrate 25 MG Oral Tablet 03/27/2021 Pro vider: MINE PASTRANA PA-C Diagnosis: Last Documented On 03/27/2021 5:33PM By Matilde Sena ; [facility] Lantus 100 UNIT/ML Subcutaneous Solution 03/27/2021 Provider: Diagnosis: inject 22 unit sub-q dailydispense QS x 1 month supply Last Documented On 03/27/2021 5:35PM By Matilde Sena ; [facility] Losartan Potassium 25 MG Oral Tablet 03/27/2021 Prov ider: Diagnosis: Last Documented On 03/27/2021 5:34PM By Matilde Sena ; [facility] Ferrous Sulfate 325 (65 Fe) MG Oral Tablet 02/13/2021 Provider: Diagnosis: Last Documented On 11:33AM By Ema RUFF ; [facility] levoFLOXacin 250 MG Oral Tablet 02/13/2021 Provider: Diagnosis: Last Documented On 11:35AM By Ema RUFF ; [facility] HumaLOG 100 UNIT/ML Subcutaneous Solution Cartridge Provider: Diagnosis: Last Documented On 11:34AM By Ema RUFF ; [facility] Amethia 0.15-0.03 &0.01 MG Oral Tablet 01/31/2021 Pr ovider: Diagnosis: Last Documented On 01/31/2021 10:20AM By BLADE COELHO DO ; [facility] Medications Administered Includes: Administered Medications [...] 01/31/2021 Active Last Documented On 11:12AM ; [facility] Adhesive Tape Allergy Skin Rashes / Eruption of skin 02/27 Active Last Documented On 11:12AM ; [facility] Insurance Includes: Active Insurance Policies Plan Name Member ID Group # Subscriber Relationship Effect cari Dates 1 - [facility] [id number] SAL Cota Clinical Notes Includes: Clinical Notes from this encounter No Clinical Notes Recorded
--- OUTSIDE RECORDS SUMMARY | 2025-02-05 17:34 | XMS_ITS | Clinical Summary ---
Author Organization [facility] Address [address] [place] [address] Care Team Providers Care Ornamental Plaster Sticker Name Role Phone None, Provider MD Primary [...] on file Legal Sex Female 3:08 PM PROGRAM MANAGEMENT ANALYST Gender Identity Not on file Sexual Orientation Not on file Last Filed Vital Signs Vital Sign Reading Time Taken Comments Blood Pressure 152/91 06/22/2019 10:30 PM PROGRAM MANAGEMENT ANALYST Pulse 118 06/22/2019 10:05 PM PROGRAM MANAGEMENT ANALYST Temperature 36.7 C (98 F) 06/22/2019 7:35 PM PROGRAM MANAGEMENT ANALYST Respiratory Rate 17 06/22/2019 10:05 PM PROGRAM MANAGEMENT ANALYST Oxygen Saturation 100% 06/22/2019 10:30 PM PROGRAM MANAGEMENT ANALYST Inhaled Oxygen Concentration - - Weight 106.6 kg (235 lb) 06/22/2019 7:35 PM PROGRAM MANAGEMENT ANALYST Height 167.6 cm (5' 6) 06/22/2019 7:35 PM PROGRAM MANAGEMENT ANALYST Body Mass Index 37.93 06/22/2019 7:35 PM PROGRAM MANAGEMENT ANALYST Plan of Treatment Health Maintenance Due Date [...] Tdap) 03/24/2028 03/24/2018 Hepatitis C Completed 03/21/2018 Hepatitis A Vaccines Aged Out No long er eligible based on patient's age to complete this topic Meningococcal B Vaccine Aged Out No l [...] Comments HEPATITIS PANEL,ACUTE Routine 03/21/2018 3:57 PM PROGRAM MANAGEMENT ANALYST Hypertension in (HHS/HCC) from Last 3 Months or Most Recently Relevant to Health Maintenance Results * (ABNORMAL) HEPATITIS PANEL,ACUTE (03/21/2018 3:57 PM PROGRAM MANAGEMENT ANALYST) HEPATITIS B SURFACE AG REACTIVE( A) NON-REACT RIKA 03/21/2018 7:55 [address]NAGEMENT ANALYST [facility] Comment:REFLEX HBsAg CONFIRM ATORY TEST WILL BE PERFORMED AND REPORTED SEPARATELY. HEP B CORE IGM NON-REACT RIKA NON-REACT RIKA 03/21/2018 7:55 PM PRO[address] MANAGEMENT ANALYST [facility] Comment: IgM ANTI HBc NOT DETECTED. DOES NOT EXCLUDE THE POSSIBILITY OF EXPOSURE TO OR INFECTION WITH HBV. NO RETEST REQUIRED. HIGH DOSES OF BIOTIN MAY INTERFERE WITH THIS TEST RESULT. CORRELATION TO CLINICAL HISTORY AND PRESENTATION RECOMMENDED. HAV IGM NON-REACT RIKA NON-REACT RIKA 03/22/2018 7:51 AM PROGRAM MANAGEMENT ANALYST [facility] Comment: IgM ANTI HAV NOT DETECTED. DOES NOT EXCLUDE THE POSSIBILITY OF EXPOSURE TO OR INFECTION WITH HAV. LEVELS OF IgM ANTI HAV MAY BE BELOW THE CUTOFF IN EARLY INFECTION. HEPATITIS C AB NON-REACT RIKA NON-REACT RIKA 03/21/2018 7:55 PM PROGRAM MANAGEMENT ANALYST [facility] Comment: ANTIBODIES TO HCV NOT DETECTED. DOES NOT EXCLUDE THE POSSIBILITY OF EXPOSURE TO HCV. 03/21/2018 3:57 PM PROGRAM MANAGEMENT ANALYST Tammy Gold MD LABORATORY Final Result [facility] [address] [place] [id number], [id number] from Last 3 Months or Most Recently Relevant to Health Maintenance Insurance [facility] Advance Directives Documents on File Type Date Recorded Patient Business Solutions Analyst Expl anation Guardianship - Permanent 03/21/2018 12:00 AM PHYSICIAN CERTIFICATION STATEMENT * Full Code (Latest Code Status on File) Date Activated Date Inactivated Comments 03/21/2018 7:19 PM 03/26/2018 1:41 PM * Full Code Date Activated Date Inactivated Comments 03/21/2018 3:28 PM 03/21/2018 7:19 PM Care Teams Ornamental Plaster Sticker Relationship Specialty Start Date End Date None, Provider, PCP - General 06/22/19
--- OUTSIDE RECORDS SUMMARY | 2025-02-05 17:34 | XMS_ITS ---
Care Plan - [facility] Created on: February 05, 2025 SAL MITCHELL : 1980 Sex: Female Author Organization [facility] Address [address] [place] [address] Phone Care Team Providers Care Elastic Attacher Overlock Name Role Phone Unavailable Unavailable Unavailable
--- OUTSIDE RECORDS SUMMARY | 2025-02-05 17:34 | XMS_ITS | Clinical Summary ---
Author Organization [facility] Address [address] [place] [address] Phone Care Team Providers Care Produce Department Manager Name Role Phone Unavailable Unavailable Unavailable [...] Documented On 02/27/2021 12:39PM ; [facility] Note: Unchanged Sebaceous Cyst 02/27/2021 MATILDE L YOLETTE DO Ac tive Last Documented On 02/27/2021 12:41PM ; [facility] Note: Unchanged Diabetes Mellitus Type 2 02/13/2021 MATILDE L YOLETTE DO Active Last Documented On 1 1:19PM ; [facility] 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 02/13/2021 MATILDE L AMANDAONK EY DO Active Last Documented On 1 1:23PM ; [facility] Note: Unchanged Diabetes Mellitus with Foot Ulcer 02/13/2021 IS OSMAN L YOLETTE DO Active Last Documented On 1 1:20PM ; [facility] Essential Hypertension 02/13/2021 MATILDE L MCCONK EY DO Active Last Documented On 1 1:20PM ; [facility] Iron Deficiency Anemia 02/13/2021 MATILDE L MCCONK EY DO Active Last Documented On 1 1:23PM ; [facility] Note: Unchanged 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 Discussed treatment options with the patient. Discussed with patient proper care and hygeine for their feet. Patient tolerated procedures well without incident. Procedure: (37230 Debridement of toenails 6-10) Surgically debrided and mechanically reduced 6 or more toenails specifically nails 1-5 left and 1-5 right. Hemmorhage occurred none. . - Last Documented On 05/29/2021 10:44AM ; [facility] Diabetic education and instructions have [...] - Last Documented On 05/29/2021 10:44AM ; [facility] Diabetic education and instructions have [...] - Last Documented On 05/29/2021 10:44AM ; [facility] Assessments Includes: Assessments from this encounter Findings - [E11.42 - Type 2 diabetes mellitus with diabetic polyneuropathy] Type 2 diabetes with diabetic polyneuropathy - Last Documented On 05/29/2021 10:44AM ; [facility] - [B35.1 - Tinea unguium] Onychomycosis - Last Documented On 05/29/2021 10:44AM ; [facility] - [M20.40 - Other hammer toe(s) (acquired), unspecified foot] Hammer toe - Last Documented On 05/29/2021 10:44AM ; [facility] - [Z89.431 - Acquired absence of right foot] Lower limb amputation at the foot - Last Documented On 05/29/2021 10:44AM ; [facility] Medical Equipment - Implanted Devices Includes: Current Devices No Medical Equipment Recorded Medications Includes: Medications discussed during this encounter and other current Medications Current Medications (continue as prescribed) Losartan Potassium 25 MG Oral Tablet 10/29/2021 Prov ider: ARUN CUBA D.O. Diagnosis: TAKE 1 TABLET BY MOUTH EVERY DAY Last Documented On 10/29/2021 5:20PM By FARAZ RUFF ; [facility] Citalopram Hydrobromide 10 MG Oral Tablet 10/29/2021 Provider: ARUN Buchanan Diagnosis: Adjustment disor sb with depressed mood TAKE 1 TABLET BY MOUTH EVERY DAY Last Documented On 10/29/2021 5:21PM By FARAZ RUFF ; [facility] Metoprolol Tartrate 25 MG Oral Tablet 10/29/2021 Pro vider: MARIEL COLLADO DO Diagnosis: TAKE 1 TABLET BY MOUTH TWICE A DAY Last Documented On 10/29/2021 5:20PM By FARAZ RUFF ; [facility] HumaLOG KwikPen 100 UNIT/ML Subcutaneous Solution Pen-injector 10/01/2021 Provider: MARIEL COLLADO DO Diagnosis: USE 4 TIMES A DAY PER SLIDIN G SCALE UP TO A MAX OF 30 UNITS PER DAY Last Documented On 10/01/2021 9:04AM By MARIEL COLLADO DO ; [facility] Lantus SoloStar 100 UNIT/ML Subcutaneous Solution Pen-injector 09/17/2021 Provider: MARIEL COLLADO DO Diagnosis: INJECT 22 UNIT SUBCUTANEOUS DAILY Last Documented On 09/17/2021 4:39PM By MARIEL COLLADO DO ; [facility] Metoprolol Tartrate 25 MG Oral Tablet 03/27/2021 Pro vider: MINE PASTRANA PA-C Diagnosis: Last Documented On 03/27/2021 5:33PM By Matilde Sena ; [facility] Lantus 100 UNIT/ML Subcutaneous Solution 03/27/2021 Provider: Diagnosis: inject 22 unit sub-q dailydispense QS x 1 month supply Last Documented On 03/27/2021 5:35PM By Matilde Sena ; [facility] Losartan Potassium 25 MG Oral Tablet 03/27/2021 Prov ider: Diagnosis: Last Documented On 03/27/2021 5:34PM By Matilde Sena ; [facility] Ferrous Sulfate 325 (65 Fe) MG Oral Tablet 02/13/2021 Provider: Diagnosis: Last Documented On 11:33AM By Ema RUFF ; [facility] levoFLOXacin 250 MG Oral Tablet 02/13/2021 Provider: Diagnosis: Last Documented On 11:35AM By Ema RUFF ; [facility] HumaLOG 100 UNIT/ML Subcutaneous Solution Cartridge Provider: Diagnosis: Last Documented On 11:34AM By Ema RUFF ; [facility] Amethia 0.15-0.03 &0.01 MG Oral Tablet 01/31/2021 Pr ovider: Diagnosis: Last Documented On 01/31/2021 10:20AM By BLADE COELHO DO ; [facility] Medications Administered Includes: Administered Medications from this encounter No Administered Medications Recorded Vital Signs Includes: Vital Signs from this encounter Vital Name 05/29/2021 09:46A Blood Pressure Sitting R 162/90 BP Cuff Size Regular Pulse Rhythm Regular Temp-Oral (F) 98.3 Height (in) 66 Weight (lb) 211 Body Mass Index (kg/m2) 34.1 Body Surface Area (m2) 2.0 Last Documented: On 05/29/2021 9:47AM ; [facility] Results Includes: Results discussed during this encounter [...] 05/29/2021 Last Documented On 2 10:44AM ; [facility] Tobacco non-user 02/13/2021 Last Documented On 2 9:46AM ; [facility] Smoking Status Unknown Procedures and Surgical History Includes: Procedures from this encounter Procedures Code Diagnosis Performing Provider Service L ocation Service Date encouragement to exercise Last Documented On 2 10:43AM ; [facility] Clinical summary provided to patient Last Documented On 2 10:43AM ; [facility] Medical History Includes: Medical History addressed during this encounter Description Last Updated Diabetes 05/29/2021 Last Documented On 2 10:44AM ; [facility] Family History Includes: Family History addressed during this encounter Description Last Updated Family history of cancer 05/29/2021 Last Documented On 2 10:44AM ; [facility] Maternal history of Chest Pain 2 Last Documented On 2 10:44AM ; [facility] Maternal history of tobacco use 05/29/19 Last Documented On 2 10:44AM ; [facility] Paternal history of Chest Pain 2 Last Documented On 2 10:44AM ; [facility] Paternal history of family medical histo ry of high blood pressure 05/29/2021 Last Documented On 2 10:44AM ; [facility] Paternal history of Nerve Disorder 05/29 Last Documented On 2 10:44AM ; [facility] Paternal history of reported family hist ory of diabetes 05/29/2021 Last Documented On 2 10:44AM ; [facility] Paternal history of stroke syndrome 07/2021 Last Documented On 2 10:44AM ; [facility] Paternal history of tobacco use 05/29/19 Last Documented On 2 10:44AM ; [facility] Review of Systems Includes: Review of Systems [...] Active Last Documented On 1 11:12AM ; [facility] Adhesive Tape Allergy Skin Rashes / Eruption of skin 02/27 Active Last Documented On 11:12AM ; [facility] Encounters Encounter Provider Location Date Check-In Time Check-Out Time Diagnosis PODIATRY CONSULTATION- ESTABLISHED PATIENT CHINYERE VERGARA DPM [facility] 022 9:38AM 10:00AM Acquired Deformity of Toe - Hammer Toe,Type 2 Diabetes with Diabetic Polyneuropathy,L ower Limb Amputation At Foot,Dermatophyt osis Nails Onychomycosis Insurance Includes: Active Insurance Policies Plan Name Member ID Group # Subscriber Relationship Effect cari Dates 1 - [facility] [id number] SAL MITCHELL Self Clinical Notes Includes: Clinical Notes from this encounter No Clinical Notes Recorded
--- OUTSIDE RECORDS SUMMARY | 2025-02-05 17:34 | XMS_ITS ---
Author Organization 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 Note: Unchanged Sebaceous Cyst 02/27/2021 MATILDE L YOLETTE DO Ac tive Last Documented On 02/27/2021 12:41PM ; [facility] Note: Unchanged Diabetes Mellitus Type 2 02/13/2021 MATILDE L YOLETTE DO Active Last Documented On 1 1:19PM ; 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 Note: Unchanged Diabetes Mellitus with Foot Ulcer 02/13/2021 IS OSMAN L YOLETTE DO Active Last Documented On 1 1:20PM ; [facility] Essential Hypertension 02/13/2021 MATILDE L MCCONK EY DO Active Last Documented On 1 1:20PM ; [facility] Iron Deficiency Anemia 02/13/2021 MATILDE L MCCONK EY DO Active Last Documented On 1 1:23PM ; [facility] Note: Unchanged Iron Deficiency Anemia 02/13/2021 MATILDE L MCCONK EY DO Inactive Last Documented On 1 1:23PM ; 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 Plan of Treatment Findings Encounter Date Evaluated the patient. Discu ssed treatment options with the patient. Discussed with patient proper care and hygeine for their feet. Patient tolerated procedures well without incident. Procedure: (19704 Debridement of toenails 6-10) Surgically debrided and mechanically reduced 6 or more toenails specifically nails 1-5 left and 1-5 right. Hemmorhage occurred none. PODIATRY CONSULTATION- ESTABLISHED PATIENT with CHINYERE VERGARA DPM 05/29/2021 Last Documented On 2 10:44AM ; [facility] IV antibiotics Bone scan Pod iatry consultation Tuesday CONSULTATION - NEW PATIENT with BLADE COELHO DO 01/31/2021 Last Documented On 1 10:31AM ; [facility] Referrals To Diagnosis General Surgery Sebaceous cyst Last Documented On 4 12:23PM ; [facility] Assessments Includes: Assessments for all patient encounters Findings Encounter Date [M20.40 - Other hammer toe(s ) (acquired), unspecified foot] hammer toe PODIATRY CONSULTATION- ESTABLISHED PATIENT with CHINYERE VERGARA DPM 05/29/2021 Last Documented On 2 10:44AM ; [facility] [Z89.431 - Acquired absence of right foot] lower limb amputation at the foot PODIATRY CONSULTATION- ESTABLISHED PATIENT with CHINYERE Ba VERGARA DPM 05/29/2021 Last Documented On 2 10:44AM ; [facility] Onychomycosis PODIATRY CONSULTATIO N- ESTABLISHED PATIENT with CHINYERE Ba VERGARA DPM 05/29/2021 Last Documented On 2 10:44AM ; [facility] Type 2 diabetes with diabeti c polyneuropathy PODIATRY CONSULTATION- ESTABLISHED PATIENT with HCINYERE Ba VERGARA DPM 05/29/2021 Last Documented On 2 10:44AM ; [facility] Adjustment disorder with depressed mood CHECK UP with MATILDE DE LA VEGA DO 02/27/2021 Last Documented On 1 12:42PM ; [facility] Diabetes mellitus with foot ulcer CHECK UP with MATILDE L YOLETTE DO 02/27/2021 Last Documented On 1 12:42PM ; [facility] Essential hypertension CHECK UP with MATILDE L MCCO NKEY DO 02/27/2021 Last Documented On 1 12:42PM ; [facility] Sebaceous cyst CHECK UP with MATILDE L YOLETTE DO 02/27/2021 Last Documented On 1 12:42PM ; [facility] Diabetes mellitus with foot ulcer HOSPIT AL FOLLOW UP EXAM with MATILDE L YOLETTE DO 02/13/2021 Last Documented On 1 1:23PM ; [facility] Essential hypertension HOSPITAL FOLLOW UP EXAM w ith MATILDE L YOLETTE DO 02/13/2021 Last Documented On 1 1:23PM ; [facility] Iron deficiency anemia HOSPITAL FOLLOW UP EXAM w ith MATILDE L YOLETTE DO 02/13/2021 Last Documented On 1 1:23PM ; [facility] Lower limb amputation at the first toe H OSPITAL FOLLOW UP EXAM with MATILDE L YOLETTE DO 02/13/2021 Last Documented On 1 1:23PM ; [facility] Type 2 diabetes mellitus HOSPITAL FOLLOW UP EXAM with MATILDE L YOLETTE DO 02/13/2021 Last Documented On 1 1:23PM ; [facility] Necrotic ulcers of the right great toe CONSULTATION - NEW PATIENT with BLADE COELHO DO 01/31/2021 Last Documented On 1 10:31AM ; [facility] Medical Equipment - Implanted Devices Includes: Current and historical Devices No Medical Equipment Recorded Medications Includes: Current and historical Medications Current Medications (continue as prescribed) Losartan Potassium 25 MG Oral Tablet 10/29/2021 Prov ider: ARUN CUBA D.O. Diagnosis: TAKE 1 TABLET BY MOUTH EVERY DAY Last Documented On 10/29/2021 5:20PM By FARAZ RUFF ; [facility] Citalopram Hydrobromide 10 MG Oral Tablet 10/29/2021 Provider: ARUN Buchanan Diagnosis: Adjustment disor sb with depressed mood TAKE 1 TABLET BY MOUTH EVERY DAY Last Documented On 10/29/2021 5:21PM By FARAZ RUFF ; [facility] Metoprolol Tartrate 25 MG Oral Tablet 10/29/2021 Pro vider: MARIEL COLLADO DO Diagnosis: TAKE 1 TABLET BY MOUTH TWICE A DAY Last Documented On 10/29/2021 5:20PM By FARAZ RUFF ; [facility] HumaLOG KwikPen 100 UNIT/ML Subcutaneous Solution Pen-injector 10/01/2021 Provider: MARIEL COLLADO DO Diagnosis: USE 4 TIMES A DAY PER SLIDIN G SCALE UP TO A MAX OF 30 UNITS PER DAY Last Documented On 10/01/2021 9:04AM By MARIEL COLLADO DO ; [facility] Lantus SoloStar 100 UNIT/ML Subcutaneous Solution Pen-injector 09/17/2021 Provider: MARIEL COLLADO DO Diagnosis: INJECT 22 UNIT SUBCUTANEOUS DAILY Last Documented On 09/17/2021 4:39PM By MARIEL COLLADO DO ; [facility] Metoprolol Tartrate 25 MG Oral Tablet 03/27/2021 Pro vider: MINE PASTRANA PA-C Diagnosis: Last Documented On 03/27/2021 5:33PM By Matilde De La Vega ; [facility] Lantus 100 UNIT/ML Subcutaneous Solution 03/27/2021 Provider: Diagnosis: inject 22 unit sub-q dailydispense QS x 1 month supply Last Documented On 03/27/2021 5:35PM By Matilde De La Vega ; [facility] Losartan Potassium 25 MG Oral Tablet 03/27/2021 Prov ider: Diagnosis: Last Documented On 03/27/2021 5:34PM By Matilde De La Vega ; [facility] Ferrous Sulfate 325 (65 Fe) MG Oral Tablet 02/13/2021 Provider: Diagnosis: Last Documented On 11:33AM By Ema RUFF ; [facility] levoFLOXacin 250 MG Oral Tablet 02/13/2021 Provider: Diagnosis: Last Documented On 11:35AM By Ema RUFF ; [facility] HumaLOG 100 UNIT/ML Subcutaneous Solution Cartridge Provider: Diagnosis: Last Documented On 11:34AM By Ema RUFF ; [facility] Amethia 0.15-0.03 &0.01 MG Oral Tablet 01/31/2021 Pr ovider: Diagnosis: Last Documented On 01/31/2021 10:20AM By BLADE COELHO DO ; [facility] Past Medications on file Citalopram Hydrobromide 10 MG Oral Tablet 09/17/2021 - 10/29/2021 Provider: MARIEL COLLADO DO Diagnosis: Adjustment disor sb with depressed mood TAKE 1 TABLET BY MOUTH EVERY DAY Last Documented On 10/29/2021 4:35PM By FARAZ RUFF ; [facility] Losartan Potassium 25 MG Ora l Tablet 09/17/2021 - 10/29/2021 Provider: MARIEL COLLADO DO Diagnosis: TAKE 1 TABLET BY MOUTH EVERY DAY Last Documented On 10/29/2021 4:31PM By FARAZ RUFF ; [facility] Metoprolol Tartrate 25 MG Or al Tablet 09/17/2021 - 10/29/2021 Provider: MARIEL COLLADO DO Diagnosis: TAKE 1 TABLET BY MOUTH TWICE A DAY Last Documented On 10/29/2021 4:34PM By FARAZ RUFF ; [facility] Citalopram Hydrobromide 10 MG Oral Tablet 08/17/2021 - 09/17/2021 Provider: MARIEL COLLADO DO Diagnosis: Adjustment disor sb with depressed mood TAKE 1 TABLET BY MOUTH EVERY DAY Last Documented On 09/17/2021 12:23PM By MARIEL COLLADO DO ; [facility] Metoprolol Tartrate 25 MG Or al Tablet 08/17/2021 - 09/17/2021 Provider: MARIEL COLLADO DO Diagnosis: TAKE 1 TABLET BY MOUTH TWICE A DAY Last Documented On 09/17/2021 12:16PM By MARIEL COLLADO DO ; [facility] Losartan Potassium 25 MG Ora l Tablet 08/17/2021 - 09/17/2021 Provider: MARIEL COLLADO DO Diagnosis: TAKE 1 TABLET BY MOUTH EVERY DAY Last Documented On 09/17/2021 12:17PM By MARIEL COLLADO DO ; [facility] HumaLOG KwikPen 100 UNIT/ML Subcutaneous Solution Pen-injector 08/07/2021 - 10/01/2021 Provider: MARIEL COLLADO DO Diagnosis: USE 4 TIMES A DAY PER SLIDIN G SCALE UP TO A MAX OF 30 UNITS PER DAY Last Documented On 10/01/2021 8:59AM By MARIEL COLLADO DO ; [facility] Losartan Potassium 25 MG Ora l Tablet 07/16/2021 - 08/17/2021 Provider: MARIEL COLLADO DO Diagnosis: TAKE 1 TABLET BY MOUTH EVERY DAY Last Documented On 08/17/2021 12:59PM By MARIEL COLLADO DO ; [facility] Metoprolol Tartrate 25 MG Or al Tablet 07/16/2021 - 08/17/2021 Provider: MARIEL COLLADO DO Diagnosis: TAKE 1 TABLET BY MOUTH TWICE A DAY Last Documented On 08/17/2021 12:59PM By MARIEL COLLADO DO ; [facility] Citalopram Hydrobromide 10 MG Oral Tablet 07/15/2021 - 08/17/2021 Provider: MARIEL COLLADO DO Diagnosis: Adjustment disor sb with depressed mood TAKE 1 TABLET BY MOUTH EVERY DAY Last Documented On 08/17/2021 12:59PM By MARIEL COLLADO DO ; [facility] HumaLOG KwikPen 100 UNIT/ML Subcutaneous Solution Pen-injector 06/19/2021 - 08/07/2021 Provider: MARIEL COLLADO DO Diagnosis: USE 4 TIMES A DAY PER SLIDIN G SCALE UP TO A MAX OF 30 UNITS PER DAY Last Documented On 08/07/2021 12:51PM By MARIEL COLLADO DO ; [facility] Metoprolol Tartrate 25 MG Or al Tablet 06/19/2021 - 07/16/2021 Provider: MARIEL COLLADO DO Diagnosis: TAKE 1 TABLET BY MOUTH TWICE A DAY Last Documented On 07/16/2021 10:54AM By MARIEL COLLADO DO ; [facility] Lantus SoloStar 100 UNIT/ML Subcutaneous Solution Pen-injector 06/19/2021 - 09/17/2021 Provider: MARIEL COLLADO DO Diagnosis: INJECT 22 UNIT SUBCUTANEOUS DAILY Last Documented On 09/17/2021 4:33PM By MARIEL COLLADO DO ; [facility] Losartan Potassium 25 MG Ora l Tablet 06/19/2021 - 07/16/2021 Provider: MARIEL COLLADO DO Diagnosis: TAKE 1 TABLET BY MOUTH EVERY DAY Last Documented On 07/16/2021 10:54AM By MARIEL COLLADO DO ; [facility] Citalopram Hydrobromide 10 MG Oral Tablet 06/18/2021 - 07/15/2021 Provider: MARIEL COLLADO DO Diagnosis: Adjustment disor sb with depressed mood TAKE 1 TABLET BY MOUTH EVERY DAY Last Documented On 07/15/2021 8:17PM By MARIEL COLLADO DO ; [facility] Citalopram Hydrobromide 10 MG Oral Tablet 04/27/2021 - 06/18/2021 Provider: MATILDE DE LA VEGA DO Diagnosis: Adjustment disor sb with depressed mood TAKE 1 TABLET BY MOUTH EVERY DAY, needs an appt for further refills Last Documented On 06/18/2021 9:26PM By MARIEL COLLADO DO ; [facility] CeleXA 10 MG Oral Tablet 02/27/2021 - 04/27/2021 Provider: MATILDE DE LA VEGA DO Diagnosis: Adjustment disor sb with depressed mood 1 capsule daily Last Documented On 5:26PM By CHESTER RUFF ; [facility] Losartan Potassium 25 MG Oral Tablet 02/13/2021 - 06/2020 Provider: Diagnosis: Last Documented On 03/27/2021 5:34PM By Matilde De La Vega ; [facility] Lantus 100 UNIT/ML Subcutaneous Solution 02/13/2021 - 03/27/2021 Provider: Diagnosis: inject 22 unit sub-q daily Last Documented On 03/27/2021 5:35PM By Matilde De La Vega ; [facility] Metoprolol Tartrate 25 MG Oral Tablet 02/07/2021 - 03/27/2021 Provider: MINE Skinner PA-C Diagnosis: Last Documented On 03/27/2021 5:33PM By Matilde De La Vega ; [facility] Medications Administered Includes: Administered Medications in patient's chart No Administered Medications Recorded Results Includes: Results from 02/06/2024 through 02/05/2025 No Results Recorded For Specified Dates History of Present Illness History of Present Illness not supported for this document type No History of Present Illness Recorded Social History Description Last Updated Not a job-related injury 05/29/2021 Last Documented On 10:44AM ; [facility] Tobacco non-user 02/13/2021 Last Documented On 1 1:23PM ; [facility] Smoking Status Unknown Medical History Includes: Medical History in patient's chart Description Last Updated Diabetes 05/29/2021 Last Documented On 2 10:44AM ; [facility] Family History Includes: Family History in patient's chart Description Last Updated Family history of cancer 05/29/2021 Last Documented On 2 10:44AM ; [facility] Maternal history of Chest Pain 2 Last Documented On 2 10:44AM ; [facility] Maternal history of tobacco use 05/29/19 Last Documented On 2 10:44AM ; [facility] Paternal history of Chest Pain 2 Last Documented On 2 10:44AM ; [facility] Paternal history of family medical histo ry of high blood pressure 05/29/2021 Last Documented On 2 10:44AM ; [facility] Paternal history of Nerve Disorder 05/29 Last Documented On 2 10:44AM ; [facility] Paternal history of reported family hist ory of diabetes 05/29/2021 Last Documented On 2 10:44AM ; [facility] Paternal history of stroke syndrome 07/2021 Last Documented On 2 10:44AM ; [facility] Paternal history of tobacco use 05/29/19 Last Documented On 2 10:44AM ; [facility] Review of Systems Review of Systems not [...] Active Last Documented On 1 11:12AM ; [facility] Adhesive Tape Allergy Skin Rashes / Eruption of skin 02/27 Active Last Documented On 1 11:12AM ; [facility] Insurance Includes: Active Insurance Policies Plan Name Member ID Group # Subscriber Relationship Effect cari Dates 1 - [facility] [id number] SAL MITCHELL Self Clinical Notes Includes: Signed Clinical Notes starting from 05/14/2022 No Clinical Notes Recorded
--- OUTSIDE RECORDS SUMMARY | 2025-02-05 17:34 | XMS_ITS | Clinical Summary ---
Author Organization [facility] Address [address] [place] [address] Phone Care Team Providers Care Build Manager Name Role Phone Unavailable Unavailable Unavailable Reason for Visit and Chief Complaint * PHONE CALL Problems Includes: Problems addressed during this encounter and other active Problems All Visits Onset Date Resolved Date Provider Condition S tatus Adjustment Disorder with Depressed Mood 02/27/2021 MATILDE L YOLETTE DO Active Last Documented On 02/27/2021 12:39PM ; [facility] Note: Unchanged Sebaceous Cyst 02/27/2021 MATILDE L YOLETTE DO Ac tive Last Documented On 02/27/2021 12:41PM ; [facility] Note: Unchanged Diabetes Mellitus Type 2 02/13/2021 MATILDE L YOLETTE DO Active Last Documented On 1 1:19PM ; [facility] 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 02/13/2021 MATILDE L MCCONK EY DO Active Last Documented On 1 1:23PM ; [facility] Note: Unchanged Diabetes Mellitus with Foot Ulcer 02/13/2021 IS OSMAN L YOLETTE DO Active Last Documented On 1 1:20PM ; [facility] Essential Hypertension 02/13/2021 MATILDE L MCCONK EY DO Active Last Documented On 1 1:20PM ; [facility] Iron Deficiency Anemia 02/13/2021 MATILDE L MCCONK EY DO Active Last Documented On 1 1:23PM ; [facility] Note: Unchanged 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 02/13/2021 I SHA L YOLETTE DO Active Last Documented On 1 1:19PM ; [facility] Plan of Treatment No Plan [...] On 10/29/2021 5:20PM By FARAZ RUFF ; [facility] Citalopram Hydrobromide 10 MG Oral Tablet 10/29/2021 Provider: ARUN Buchanan Diagnosis: Adjustment disor sb with depressed mood TAKE 1 TABLET BY MOUTH EVERY DAY Last Documented On 10/29/2021 5:21PM By FARAZ RUFF ; [facility] Metoprolol Tartrate 25 MG Oral Tablet 10/29/2021 Pro vider: MARIEL COLLADO DO Diagnosis: TAKE 1 TABLET BY MOUTH TWICE A DAY Last Documented On 10/29/2021 5:20PM By FARAZ RUFF ; [facility] HumaLOG KwikPen 100 UNIT/ML Subcutaneous Solution Pen-injector 10/01/2021 Provider: MARIEL COLLADO DO Diagnosis: USE 4 TIMES A DAY PER SLIDIN G SCALE UP TO A MAX OF 30 UNITS PER DAY Last Documented On 10/01/2021 9:04AM By MARIEL COLLADO DO ; [facility] Lantus SoloStar 100 UNIT/ML Subcutaneous Solution Pen-injector 09/17/2021 Provider: MARIEL COLLADO DO Diagnosis: INJECT 22 UNIT SUBCUTANEOUS DAILY Last Documented On 09/17/2021 4:39PM By MARIEL COLLADO DO ; [facility] Metoprolol Tartrate 25 MG Oral Tablet 03/27/2021 Pro vider: MINE PASTRANA PA-C Diagnosis: Last Documented On 03/27/2021 5:33PM By Matilde Sena ; [facility] Lantus 100 UNIT/ML Subcutaneous Solution 03/27/2021 Provider: Diagnosis: inject 22 unit sub-q dailydispense QS x 1 month supply Last Documented On 03/27/2021 5:35PM By Matilde Sena ; [facility] Losartan Potassium 25 MG Oral Tablet 03/27/2021 Prov ider: Diagnosis: Last Documented On 03/27/2021 5:34PM By Matilde Sena ; [facility] Ferrous Sulfate 325 (65 Fe) MG Oral Tablet 02/13/2021 Provider: Diagnosis: Last Documented On 1 11:33AM By Ema RUFF ; [facility] levoFLOXacin 250 MG Oral Tablet 02/13/2021 Provider: Diagnosis: Last Documented On 1 11:35AM By Ema RUFF ; [facility] HumaLOG 100 UNIT/ML Subcutaneous Solution Cartridge Provider: Diagnosis: Last Documented On 1 11:34AM By Ema URFF ; [facility] Amethia 0.15-0.03 &0.01 MG Oral Tablet 01/31/2021 Pr ovider: Diagnosis: Last Documented On 01/31/2021 10:20AM By BLADE COELHO DO ; [facility] Medications Administered Includes: Administered Medications from this encounter No Administered Medications Recorded Results Includes: Results discussed during this encounter No Results Recorded For Specified Dates History of Present Illness Includes: History of Present Illness from this encounter No History of Present Illness Recorded Social History Description Last Updated Tobacco non-user 02/13/2021 Last Documented On 2 12:55PM ; [facility] Smoking Status Unknown Medical History Includes: Medical History addressed during this encounter Description Last Updated Diabetes 05/29/2021 Last Documented On 2 12:55PM ; [facility] Family History Includes: Family History [...] Active Last Documented On 1 11:12AM ; [facility] Adhesive Tape Allergy Skin Rashes / Eruption of skin 02/27 Active Last Documented On 1 11:12AM ; [facility] Encounters Encounter Provider Location Date Check-In Time Check-Out Time Diagnosis * PHONE CALL CHINYERE VERGARA DPMiles 08/21/2021 12:53PM 11:59PM Insurance Includes: Active Insurance Policies Plan Name Member ID Group # Subscriber Relationship Effect cari Dates 1 - [facility] [id number] SAL MITCHELL Self Clinical Notes Includes: Clinical Notes from this encounter No Clinical Notes Recorded
--- OUTSIDE RECORDS SUMMARY | 2025-02-05 17:34 | XMS_ITS | Clinical Summary ---
Author Organization [facility] Address [address] [place] [address] Care Team Providers Care Data Collection Technician Name Role Phone Unavailable Primary Care Provider Unavailabl e Source Comments [facility],non-owned Affiliates and Associated Physician Practices is amultiple site organization consisting of ambulatory clinics and hospital sitesin [place], [place]. This disclosure is being madepursuant to the Care Everywhere program and may not contain all information available regarding this patient. Last updated 18.[facility] Allergies Active Allergy Reactions Criticality Noted Date [...] patient's age to complete this topic Insurance [facility] Advance Directives * Full Code (Latest Code Status on File) Date Activated Date Inactivated Comments 10/18/2015 10:42 PM 10/23/2015 4:57 PM * Full Code Date Activated Date Inactivated Comments 10/13/2015 3:21 PM 10/18/2015 10:42 PM
--- NOTE | 2025-02-05 17:42 | PC.NURSE ---
consulted with gauri [facility] in regards to mixing sodium bicarb drip. instructions received.
[2025-02-05] MEDS: SODIUM BICARBONATE 8.4% 150 MEQ in DEXTROSE 5% 1,000 ML 950 ML 50 MEQ IV CONT (18:07)
[2025-02-05] MEDS: MORPHINE SULFATE (*CRX) 4 MG/ML INJ IV PUSH (18:34)
[2025-02-05] MEDS: ONDANSETRON INJ 4 MG/2 ML VIAL IV PUSH (18:34)
== END 2025-02-05 18:55 | disposition short-term general hospital (02) ==
PROVIDERS: Emergency Provider Family Medicine; Referring Provider Internal Medicine
DX: E87.20 Acidosis, unspecified (principal); I12.9 Hypertensive chronic kidney disease with stage 1 through stage 4 chronic kidney disease, or unspecified chronic kidney disease; N18.9 Chronic kidney disease, unspecified; E11.9 Type 2 diabetes mellitus without complications
CPT/HCPCS: 36415; 71045; 80053; 82948; 83036; 83880; 84443; 85025; 85055; 93005; 96365; 96375; 99285; A9270; J0360; J2270; J2405; J3360; J7030; J7070

== ENCOUNTER 2025-02-05 19:19 | Inpatient (IN) | payer OTHER, SELFPAY ==
--- NOTE | ~2025-02-05 | XR_ITS ---
EXAMINATION: XR chest 1V portable COMPARISON: No comparisons available. HISTORY: Non functioning dialysis catheter FINDINGS: Mild pulmonary venous congestion. Small basilar infiltrates and effusions. No pneumothorax. Moderate cardiomegaly. Mediastinal and hilar contours are within normal limits. Bony thorax no acute abnormality. Miscellaneous: Right central line Terminates just within the SVC, repositioning suggested. Impression: Probable CHF. Repositioning of the dialysis catheter suggested Reviewed, dictated and finalized at location P. Impression: Probable CHF. Repositioning of the dialysis catheter suggested
--- NOTE | ~2025-02-05 | US_ITS ---
EXAMINATION: US KIDNEY DATE: 02/27/10 07:00:00 INDICATION: Renal dysfunction and nephrotic range proteinuria TECHNIQUE: Real-time ultrasound was performed by the radiologist during telephone service adviser evaluation for planned ultrasound-guided renal biopsy. A few of the ultrasound grayscale images of the left kidney were recorded. No suitable approach was identified and the planned biopsy was canceled and the patient transferred to the CT scanner for subsequent CT guided renal biopsy which will be dictated separately. COMPARISON: 02/06/2025 FINDINGS/IMPRESSION: Where clearly visualize the approach to the right kidney was blocked by the liver and the approach to the left kidney was blocked by the spleen and multiple loops of intervening bowel. Given the lack of a suitable route for biopsy with ultrasound guidance the planned procedure was canceled and the patient transferred to the CT scanner for subsequent successful CT guided renal biopsy details of which have been dictated separately. Reviewed, dictated and finalized at location A.
--- NOTE | ~2025-02-05 | XR_ITS ---
Examination: XR chest 1V portable Clinical History: CHF/Shortness of breath Comparison: 02/05/2025 Technique: Portable AP Findings: Cardiomegaly. Pleural effusions and bibasilar opacities persists. No pulmonary edema. No acute bony abnormality. IMPRESSION: 1. Persistent pleural effusions with bibasilar atelectasis. 2. No pulmonary edema. Reviewed, dictated and finalized at location R.
--- NOTE | ~2025-02-05 | US_ITS ---
US renal BI CLINICAL INDICATION:renal failure . COMPARISON: None. FINDINGS: The right kidney measures 10 x 5.2 x 5.5 cm. The left kidney is not visualized. Renal contour and echotexture are unremarkable. No cystic or solid mass is evident .There is no hydronephrosis. Cortez catheter is noted in the bladder. IMPRESSION: Right kidney is unremarkable. Left kidney is not visualized. Reviewed, dictated and finalized at location S.
--- NOTE | ~2025-02-05 | XR_ITS ---
EXAMINATION: XR fl guide central line place DATE: 02/08/2025 10:50 INDICATION: Tunneled dialysis catheter insertion TECHNIQUE: 1 fluoroscopic image of the right central chest was obtained during procedure performed by Dr. uJan. Radiologist was not present for the imaging or procedure. The amount of fluoroscopy time used during this procedure was 0.5 minutes. Total DAP was 1.979 Gycm^2. COMPARISON: None. FINDINGS/IMPRESSION: Image demonstrates distal tip of a large-bore dual-lumen right subclavian central venous catheter with distal tip at the midsuperior vena cava. See procedure note for further detail. Reviewed, dictated and finalized at location A.
--- NOTE | ~2025-02-05 | NM_ITS ---
EXAMINATION: NM carmen stress w perfusion DATE: 02/26/2025 12:41 INDICATION: Cardiomyopathy and decreased ejection fraction of 35% TECHNIQUE: Rest images were obtained following intravenous administration of 11.3 mCi Tc99m tetrofosmin (Myoview). The patient was infused intravenously with Lexiscan (Regadenoson). Then, 35.0 mCi Tc99m tetrofosmin (Myoview) was administered intravenously, and stress images were obtained. Data was ayesha nstructed into short axis and horizontal and vertical long axis SPECT images. Gated SPECT images were also obtained. COMPARISON: None. FINDINGS: There is no definite reversible or fixed perfusion abnormality to suggest ischemia or infarction. There is normal left ventricular chamber size, wall motion and ejection fraction. Left ventricular ejection fraction measures 69%. IMPRESSION: 1. Normal myocardial perfusion at rest and during stress. 2. Left ventricular ejection fraction measuring 69%. Reviewed, dictated and finalized at location A. 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
--- NOTE | ~2025-02-05 | XR_ITS ---
EXAMINATION: XR chest port-a-cath/central DATE: 02/08/2025 11:32 INDICATION: Tunneled dialysis catheter placement TECHNIQUE: frontal view of the chest was obtained. COMPARISON: Chest radiograph dated 02/06/2025 FINDINGS: Tunneled large-bore dual-lumen right subclavian central venous catheter with distal tip in the midsuperior vena cava. There is subtle undulation of the course of the catheter where it passes between the right clavicle and anterior first rib but without evident kinks or flattening of the catheter. Gradient of basilar predominant hazy opacities in the bilateral mid and lower lung zones with blunting at the costophrenic and cardiophrenic angles consistent with small bilateral pleural effusions with some fluid tracking along the right pulmonary fissures. Retrocardiac consolidation which could represent associated atelectasis and/or pneumonia. No pneumothorax. Cardiomediastinal silhouette is within normal limits for AP technique. IMPRESSION: 1. Likely tunneled large-bore dual-lumen] central venous catheter with distal tip in the midsuperior vena cava. 2. Pleural effusions with associated bibasilar atelectasis and/or pneumonia. Reviewed, dictated and finalized at location A. IMPRESSION: 1. Likely tunneled large-bore dual-lumen] central venous catheter with distal t ip in the midsuperior vena cava. 2. Pleural effusions with associated bibasilar atelectasis and/or pneumonia.
--- NOTE | ~2025-02-05 | XR_ITS ---
EXAMINATION: XR chest port-a-cath/central COMPARISON: No comparisons available. HISTORY: POST CATH PLACEMENT FINDINGS: Moderate pulmonary venous congestion. No pneumothorax. Moderate cardiomegaly. Mediastinal and hilar contours are within normal limits. Bony thorax no acute abnormality. Miscellaneous: Right line terminates in the SVC. Impression: CHF Reviewed, dictated and finalized at location P. Impression: CHF
--- NOTE | ~2025-02-05 | XR_ITS ---
EXAMINATION: XR fl guide central line place DATE: 02/18/2025 12:10 INDICATION: Remove and replace central dialysis catheter TECHNIQUE: 1 fluoroscopic image of the right clavicular region was obtained during procedure performed by Dr. Fallon Patten. Radiologist was not present for the imaging or procedure. The amount of fluoroscopy time used during this procedure was 0.1 minutes. Total DAP was 0.356 Gycm^2. COMPARISON: 02/17/2025 FINDINGS: There is a new likely tunneled large-bore dual-lumen right internal jugular central venous catheter with proximal distal aspects of the catheter extending beyond the inferior margin of the field of imaging. There is a second partially visualized large-bore right subclavian central venous catheter, unclear whether this represents the prior catheter or a second new catheter. IMPRESSION: 1. Fluoroscopy utilized during dialysis catheter replacement. See procedure note for further detail. Reviewed, dictated and finalized at location A. IMPRESSION: 1. Fluoroscopy utilized during dialysis catheter replacement. See procedure not e for further detail.
--- NOTE | ~2025-02-05 | CT_ITS ---
EXAMINATION: CT biopsy renal DATE: 02/13/2025 09:55 INDICATION: Renal dysfunction and nephrotic range proteinuria TECHNIQUE: The procedure including the risks and benefits was discussed with the patient. Risks discussed included bleeding and infection. The patient understood the risks and agreed to proceed. A timeout was performed to verify the patient's name, date of , and procedure to be performed. The skin overlying the lower pole of the left kidney was prepped and draped in usual sterile fashion. Anesthetic was administered with 1% lidocaine subcutaneously. A 16 gauge outer needle was advanced under CT guidance to the kidney. An 18 gauge core biopsy needle was then used to obtain 4 core biopsy specimens. The needle was removed and the entry site was cleaned and dressed. There were no immediate complications. The dose-length product was 208.86 mGy-cm. FINDINGS: CT images demonstrate the outer needle tip adjacent to the lower pole of the left kidney. IMPRESSION: 1. Successful CT-guided random left kidney biopsy. Reviewed, dictated and finalized at location A.
--- NOTE | ~2025-02-05 | CT_ITS ---
EXAMINATION: CT femur RT wo con DATE: 02/23/2025 17:21 INDICATION: Right lower limb swelling. TECHNIQUE: Computed tomography (CT) of the right femur was performed without intravenous contrast. Automated exposure control and iterative reconstruction technique were employed. The dose-length product was 1078.47 mGy-cm. COMPARISON: None FINDINGS: The bladder is markedly distended. Bone alignment is normal. No fracture. There is mild right hip and knee osteoarthritis. No knee joint effusion. There are widespread arterial calcifications. There is diffuse edema of the subcutaneous fat. IMPRESSION: 1. Diffuse edema of the subcutaneous fat. No abscess. 2. Mild polyarticular osteoarthritis. 3. Markedly distended bladder. Reviewed, dictated and finalized at location E. L DEVELOPER
--- NOTE | ~2025-02-05 | US_ITS ---
EXAMINATION: US venous doppler LE RT, 02/23/2025 13:15 CDT HISTORY: swelling Comparison: None Technique: Rayo-scale and color Doppler images were attempted of the lower saphenofemoral junction, common femoral vein,superficial femoral vein, proximal deep femoral vein, proximal deep femoral vein, popliteal vein and posterior tibial veins. Findings: Deep Venous System:Normal flow, augmentation and compressibility. No echogenic thrombus identified. The contralateral saphenofemoral junction appears unremarkable. Superficial Venous SystemNo superficial thrombophlebitis. Soft tissues: Soft tissues are unremarkable. Impression: Negative for DVT. Reviewed, dictated and finalized at location P. Impression: Negative for DVT.
--- NOTE | ~2025-02-05 | US_ITS ---
EXAMINATION: US venous doppler UE RT, 02/10/2025 15:32 CDT HISTORY: erythema medial elbow with edema Comparison: None Technique: Multiple valentin scale and color Doppler sonographic images were obtained of the internal jugular, subclavian, axillary, brachial, basilar, radial and ulnar veins. Findings: Venous System:Normal flow, augmentation and compressibility. No echogenic thrombus identified. Soft tissues: Soft tissues are unremarkable. Impression: Negative for DVT. Reviewed, dictated and finalized at location P. Impression: Negative for DVT.
--- OUTSIDE RECORDS SUMMARY | 2025-02-05 19:24 | XMS_ITS | Clinical Summary ---
Author Organization [facility] Address [address] [place] [address] Care Team Providers Care Assisted Living Housekeeper Name Role Phone Unavailable Primary Care Provider Unavailabl e Source Comments [facility],non-owned Affiliates and Associated Physician Practices is amultiple site organization consisting of ambulatory clinics and hospital sitesin [place], [place], [place] and [place]. This disclosure is being madepursuant to the Care Everywhere program and may not contain all information available regarding this patient. Last updated 18.[facility] Allergies Active Allergy Reactions Criticality Noted Date [...] patient's age to complete this topic Insurance [facility] Advance Directives * Full Code (Latest Code Status on File) Date Activated Date Inactivated Comments 10/18/2015 10:42 PM 10/23/2015 4:57 PM * Full Code Date Activated Date Inactivated Comments 10/13/2015 3:21 PM 10/18/2015 10:42 PM
--- OUTSIDE RECORDS SUMMARY | 2025-02-05 19:24 | XMS_ITS | Clinical Summary ---
Author Organization [facility] Address [address] [place] [address] Phone Care Team Providers Care It Portfolio Manager Name Role Phone Unavailable Primary Care Provider [...] SCREENING 2022 INFLUENZA VACCINE (#1) 2024 Insurance [facility] OPT[employer] PPO [id number]
--- OUTSIDE RECORDS SUMMARY | 2025-02-05 19:24 | XMS_ITS | Clinical Summary ---
Author Organization [facility] Address [address] [place] [address] Phone Care Team Providers Care Client Services Administrator Name Role Phone Unavailable Unavailable Unavailable Reason for Visit and Chief Complaint CHECK UP Problems Includes: Problems addressed during this encounter and other active Problems All Visits Onset Date Resolved Date Provider Condition S tatus Adjustment Disorder with Depressed Mood 02/27/2021 MATILDE L YOLETTE DO Active Last Documented On 02/27/2021 12:39PM ; [facility] Note: Unchanged Sebaceous Cyst 02/27/2021 MATILDE L YOLETTE DO Ac tive Last Documented On 02/27/2021 12:41PM ; [facility] Note: Unchanged Diabetes Mellitus Type 2 02/13/2021 MATILDE L YOLETTE DO Active Last Documented On 1 1:19PM ; [facility] 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 02/13/2021 MATILDE L MCCONK EY DO Active Last Documented On 1 1:23PM ; [facility] Note: Unchanged Diabetes Mellitus with Foot Ulcer 02/13/2021 IS OSMAN L YOLETTE DO Active Last Documented On 1 1:20PM ; [facility] Essential Hypertension 02/13/2021 MATILDE L MCCONK EY DO Active Last Documented On 1 1:20PM ; [facility] Iron Deficiency Anemia 02/13/2021 MATILDE L MCCONK EY DO Active Last Documented On 1 1:23PM ; [facility] Note: Unchanged 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 02/13/2021 I SHA L YOLETTE DO Active Last Documented On 1 1:19PM ; [facility] Plan of Treatment No Plan of Treatment [...] On 10/29/2021 5:20PM By FARAZ RUFF ; [facility] Citalopram Hydrobromide 10 MG Oral Tablet 10/29/2021 Provider: ARUN Buchanan Diagnosis: Adjustment disor sb with depressed mood TAKE 1 TABLET BY MOUTH EVERY DAY Last Documented On 10/29/2021 5:21PM By FARAZ RUFF ; [facility] Metoprolol Tartrate 25 MG Oral Tablet 10/29/2021 Pro vider: MARIEL COLLADO DO Diagnosis: TAKE 1 TABLET BY MOUTH TWICE A DAY Last Documented On 10/29/2021 5:20PM By FARAZ RUFF ; [facility] HumaLOG KwikPen 100 UNIT/ML Subcutaneous Solution Pen-injector 10/01/2021 Provider: MARIEL COLLADO DO Diagnosis: USE 4 TIMES A DAY PER SLIDIN G SCALE UP TO A MAX OF 30 UNITS PER DAY Last Documented On 10/01/2021 9:04AM By MARIEL COLLADO DO ; [facility] Lantus SoloStar 100 UNIT/ML Subcutaneous Solution Pen-injector 09/17/2021 Provider: MARIEL COLLADO DO Diagnosis: INJECT 22 UNIT SUBCUTANEOUS DAILY Last Documented On 09/17/2021 4:39PM By MARIEL COLLADO DO ; [facility] Metoprolol Tartrate 25 MG Oral Tablet 03/27/2021 Pro vider: MINE PASTRANA PA-C Diagnosis: Last Documented On 03/27/2021 5:33PM By Matilde Sena ; [facility] Lantus 100 UNIT/ML Subcutaneous Solution 03/27/2021 Provider: Diagnosis: inject 22 unit sub-q dailydispense QS x 1 month supply Last Documented On 03/27/2021 5:35PM By Matilde Sena ; [facility] Losartan Potassium 25 MG Oral Tablet 03/27/2021 Prov ider: Diagnosis: Last Documented On 03/27/2021 5:34PM By Matilde Sena ; [facility] Ferrous Sulfate 325 (65 Fe) MG Oral Tablet 02/13/2021 Provider: Diagnosis: Last Documented On 11:33AM By Ema RUFF ; [facility] levoFLOXacin 250 MG Oral Tablet 02/13/2021 Provider: Diagnosis: Last Documented On 11:35AM By Ema RUFF ; [facility] HumaLOG 100 UNIT/ML Subcutaneous Solution Cartridge Provider: Diagnosis: Last Documented On 11:34AM By Ema RUFF ; [facility] Amethia 0.15-0.03 &0.01 MG Oral Tablet 01/31/2021 Pr ovider: Diagnosis: Last Documented On 01/31/2021 10:20AM By BLADE COELHO DO ; [facility] Medications Administered Includes: Administered Medications from this [...] 01/31/2021 Active Last Documented On 11:12AM ; [facility] Adhesive Tape Allergy Skin Rashes / Eruption of skin 02/27 Active Last Documented On 11:12AM ; [facility] Encounters Encounter Provider Location Date Check-In Time Check-Out Time Diagnosis CHECK UP CHINYERE VERGARA DPM [facility] 08/28/2021 10:00AM 11:59PM Insurance Includes: Active Insurance Policies Plan Name Member ID Group # Subscriber Relationship Effect cari Dates 1 - [facility] [id number] SAL MITCHELL Self Clinical Notes Includes: Clinical Notes from this encounter No Clinical Notes Recorded
--- OUTSIDE RECORDS SUMMARY | 2025-02-05 19:24 | XMS_ITS | Clinical Summary ---
Author Organization [facility] Address [address] [place] [address] Phone Care Team Providers Care Traffic Survey Technician Name Role Phone Unavailable Unavailable Unavailable Reason for Visit and Chief Complaint * PHONE CALL Problems Includes: Problems addressed during this encounter and other active Problems All Visits Onset Date Resolved Date Provider Condition S tatus Adjustment Disorder with Depressed Mood 02/27/2021 MATILDE L YOLETTE DO Active Last Documented On 02/27/2021 12:39PM ; [facility] Note: Unchanged Sebaceous Cyst 02/27/2021 MATILDE L YOLETTE DO Ac tive Last Documented On 02/27/2021 12:41PM ; [facility] Note: Unchanged Diabetes Mellitus Type 2 02/13/2021 MATILDE L YOLETTE DO Active Last Documented On 1 1:19PM ; [facility] 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 02/13/2021 MATILDE L MCCONK EY DO Active Last Documented On 1 1:23PM ; [facility] Note: Unchanged Diabetes Mellitus with Foot Ulcer 02/13/2021 IS OSMAN L YOLETTE DO Active Last Documented On 1 1:20PM ; [facility] Essential Hypertension 02/13/2021 MATILDE L MCCONK EY DO Active Last Documented On 1 1:20PM ; [facility] Iron Deficiency Anemia 02/13/2021 MATILDE L MCCONK EY DO Active Last Documented On 1 1:23PM ; [facility] Note: Unchanged 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 02/13/2021 I SHA L YOLETTE DO Active Last Documented On 1 1:19PM ; [facility] Plan of Treatment No Plan [...] On 10/29/2021 5:20PM By FARAZ RUFF ; [facility] Citalopram Hydrobromide 10 MG Oral Tablet 10/29/2021 Provider: ARUN Buchanan Diagnosis: Adjustment disor sb with depressed mood TAKE 1 TABLET BY MOUTH EVERY DAY Last Documented On 10/29/2021 5:21PM By FARAZ RUFF ; [facility] Metoprolol Tartrate 25 MG Oral Tablet 10/29/2021 Pro vider: MARIEL COLLADO DO Diagnosis: TAKE 1 TABLET BY MOUTH TWICE A DAY Last Documented On 10/29/2021 5:20PM By FARAZ RUFF ; [facility] HumaLOG KwikPen 100 UNIT/ML Subcutaneous Solution Pen-injector 10/01/2021 Provider: MARIEL COLLADO DO Diagnosis: USE 4 TIMES A DAY PER SLIDIN G SCALE UP TO A MAX OF 30 UNITS PER DAY Last Documented On 10/01/2021 9:04AM By MARIEL COLLADO DO ; [facility] Lantus SoloStar 100 UNIT/ML Subcutaneous Solution Pen-injector 09/17/2021 Provider: MARIEL COLLADO DO Diagnosis: INJECT 22 UNIT SUBCUTANEOUS DAILY Last Documented On 09/17/2021 4:39PM By MARIEL COLLADO DO ; [facility] Metoprolol Tartrate 25 MG Oral Tablet 03/27/2021 Pro vider: MINE PASTRANA PA-C Diagnosis: Last Documented On 03/27/2021 5:33PM By Matilde Sena ; [facility] Lantus 100 UNIT/ML Subcutaneous Solution 03/27/2021 Provider: Diagnosis: inject 22 unit sub-q dailydispense QS x 1 month supply Last Documented On 03/27/2021 5:35PM By Matilde Sena ; [facility] Losartan Potassium 25 MG Oral Tablet 03/27/2021 Prov ider: Diagnosis: Last Documented On 03/27/2021 5:34PM By Matilde Sena ; [facility] Ferrous Sulfate 325 (65 Fe) MG Oral Tablet 02/13/2021 Provider: Diagnosis: Last Documented On 1 11:33AM By Ema RUFF ; [facility] levoFLOXacin 250 MG Oral Tablet 02/13/2021 Provider: Diagnosis: Last Documented On 1 11:35AM By Ema RUFF ; [facility] HumaLOG 100 UNIT/ML Subcutaneous Solution Cartridge Provider: Diagnosis: Last Documented On 1 11:34AM By Ema RUFF ; [facility] Amethia 0.15-0.03 &0.01 MG Oral Tablet 01/31/2021 Pr ovider: Diagnosis: Last Documented On 01/31/2021 10:20AM By BLADE COELHO DO ; [facility] Medications Administered Includes: Administered Medications from this encounter No Administered Medications Recorded Results Includes: Results discussed during this encounter No Results Recorded For Specified Dates History of Present Illness Includes: History of Present Illness from this encounter No History of Present Illness Recorded Social History Description Last Updated Tobacco non-user 02/13/2021 Last Documented On 2 12:55PM ; [facility] Smoking Status Unknown Medical History Includes: Medical History addressed during this encounter Description Last Updated Diabetes 05/29/2021 Last Documented On 2 12:55PM ; [facility] Family History Includes: Family History addressed [...] Active Last Documented On 1 11:12AM ; [facility] Adhesive Tape Allergy Skin Rashes / Eruption of skin 02/27 Active Last Documented On 1 11:12AM ; [facility] Encounters Encounter Provider Location Date Check-In Time Check-Out Time Diagnosis * PHONE CALL CHINYERE VERGARA [facility] 08/21/2021 12:53PM 11:59PM Insurance Includes: Active Insurance Policies Plan Name Member ID Group # Subscriber Relationship Effect cari Dates 1 - [facility] [id number] SAL MITCHELL Self Clinical Notes Includes: Clinical Notes from this encounter No Clinical Notes Recorded
--- OUTSIDE RECORDS SUMMARY | 2025-02-05 19:24 | XMS_ITS | Clinical Summary ---
Author Organization [facility] Address [address] [place] [address] Phone Care Team Providers Care Fur Storage Clerk Name Role Phone Unavailable Unavailable Unavailable Reason for Visit and Chief Complaint * PHONE CALL Problems Includes: Problems addressed during this encounter and other active Problems All Visits Onset Date Resolved Date Provider Condition S tatus Adjustment Disorder with Depressed Mood 02/27/2021 MATILDE L YOLETTE DO Active Last Documented On 02/27/2021 12:39PM ; [facility] Note: Unchanged Sebaceous Cyst 02/27/2021 MATILDE L YOLETTE DO Ac tive Last Documented On 02/27/2021 12:41PM ; [facility] Note: Unchanged Diabetes Mellitus Type 2 02/13/2021 MATILDE L YOLETTE DO Active Last Documented On 1 1:19PM ; [facility] 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 02/13/2021 MATILDE L MCCONK EY DO Active Last Documented On 1 1:23PM ; [facility] Note: Unchanged Diabetes Mellitus with Foot Ulcer 02/13/2021 IS OSMAN L YOLETTE DO Active Last Documented On 1 1:20PM ; [facility] Essential Hypertension 02/13/2021 MATILDE L MCCONK EY DO Active Last Documented On 1 1:20PM ; [facility] Iron Deficiency Anemia 02/13/2021 MATILDE L MCCONK EY DO Active Last Documented On 1 1:23PM ; [facility] Note: Unchanged 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 02/13/2021 I SHA L YOLETTE DO Active Last Documented On 1 1:19PM ; [facility] Plan of Treatment No Plan [...] On 10/29/2021 5:20PM By FARAZ RUFF ; [facility] Citalopram Hydrobromide 10 MG Oral Tablet 10/29/2021 Provider: ARUN Buchanan Diagnosis: Adjustment disor sb with depressed mood TAKE 1 TABLET BY MOUTH EVERY DAY Last Documented On 10/29/2021 5:21PM By FARAZ RUFF ; [facility] Metoprolol Tartrate 25 MG Oral Tablet 10/29/2021 Pro vider: MARIEL COLLADO DO Diagnosis: TAKE 1 TABLET BY MOUTH TWICE A DAY Last Documented On 10/29/2021 5:20PM By FARAZ RUFF ; [facility] HumaLOG KwikPen 100 UNIT/ML Subcutaneous Solution Pen-injector 10/01/2021 Provider: MARIEL COLLADO DO Diagnosis: USE 4 TIMES A DAY PER SLIDIN G SCALE UP TO A MAX OF 30 UNITS PER DAY Last Documented On 10/01/2021 9:04AM By MARIEL COLLADO DO ; [facility] Lantus SoloStar 100 UNIT/ML Subcutaneous Solution Pen-injector 09/17/2021 Provider: MARIEL COLLADO DO Diagnosis: INJECT 22 UNIT SUBCUTANEOUS DAILY Last Documented On 09/17/2021 4:39PM By MARIEL COLLADO DO ; [facility] Metoprolol Tartrate 25 MG Oral Tablet 03/27/2021 Pro vider: MINE PASTRANA PA-C Diagnosis: Last Documented On 03/27/2021 5:33PM By Matilde Sena ; [facility] Lantus 100 UNIT/ML Subcutaneous Solution 03/27/2021 Provider: Diagnosis: inject 22 unit sub-q dailydispense QS x 1 month supply Last Documented On 03/27/2021 5:35PM By Matilde Sena ; [facility] Losartan Potassium 25 MG Oral Tablet 03/27/2021 Prov ider: Diagnosis: Last Documented On 03/27/2021 5:34PM By Matilde Sena ; [facility] Ferrous Sulfate 325 (65 Fe) MG Oral Tablet 02/13/2021 Provider: Diagnosis: Last Documented On 11:33AM By Ema RUFF ; [facility] levoFLOXacin 250 MG Oral Tablet 02/13/2021 Provider: Diagnosis: Last Documented On 11:35AM By Ema RUFF ; [facility] HumaLOG 100 UNIT/ML Subcutaneous Solution Cartridge Provider: Diagnosis: Last Documented On 11:34AM By Ema RUFF ; [facility] Amethia 0.15-0.03 &0.01 MG Oral Tablet 01/31/2021 Pr ovider: Diagnosis: Last Documented On 01/31/2021 10:20AM By BLADE COELHO DO ; [facility] Medications Administered Includes: Administered Medications [...] Active Last Documented On 1 11:12AM ; [facility] Adhesive Tape Allergy Skin Rashes / Eruption of skin 02/27 Active Last Documented On 11:12AM ; [facility] Encounters Encounter Provider Location Date Check-In Time Check-Out Time Diagnosis * PHONE CALL ARUN CUBA D.O. 11/03/2021 1:10PM 11:59PM Insurance Includes: Active Insurance Policies Plan Name Member ID Group # Subscriber Relationship Effect cari Dates 1 - [facility] [id number] SAL MITCHELL Self Clinical Notes Includes: Clinical Notes from this encounter No Clinical Notes Recorded
--- OUTSIDE RECORDS SUMMARY | 2025-02-05 19:24 | XMS_ITS | Clinical Summary ---
Author Organization [facility] Address [address] [place] [address] Phone Care Team Providers Care Documentation Clerk Name Role Phone Unavailable Unavailable Unavailable Reason for Visit and Chief Complaint PODIATRY CONSULTATION- ESTABLISHED PATIENT Problems Includes: Problems addressed during this encounter and other active Problems All Visits Onset Date Resolved Date Provider Condition S tatus Adjustment Disorder with Depressed Mood 02/27/2021 MATILDE L YOLETTE DO Active Last Documented On 02/27/2021 12:39PM ; [facility] Note: Unchanged Sebaceous Cyst 02/27/2021 MATILDE L YOLETTE DO Ac tive Last Documented On 02/27/2021 12:41PM ; [facility] Note: Unchanged Diabetes Mellitus Type 2 02/13/2021 MATILDE L YOLETTE DO Active Last Documented On 1 1:19PM ; [facility] 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 02/13/2021 MATILDE L MCCONK EY DO Active Last Documented On 1 1:23PM ; [facility] Note: Unchanged Diabetes Mellitus with Foot Ulcer 02/13/2021 IS OSMAN L YOLETTE DO Active Last Documented On 1 1:20PM ; [facility] Essential Hypertension 02/13/2021 MATILDE L MCCONK EY DO Active Last Documented On 1 1:20PM ; [facility] Iron Deficiency Anemia 02/13/2021 MATILDE L MCCONK EY DO Active Last Documented On 1 1:23PM ; [facility] Note: Unchanged 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 02/13/2021 I SHA L YOLETTE DO Active Last Documented On 1:19PM ; [facility] Plan of Treatment No Plan of [...] On 10/29/2021 5:20PM By FARAZ RUFF ; [facility] Citalopram Hydrobromide 10 MG Oral Tablet 10/29/2021 Provider: ARUN Buchanan Diagnosis: Adjustment disor sb with depressed mood TAKE 1 TABLET BY MOUTH EVERY DAY Last Documented On 10/29/2021 5:21PM By FARAZ RUFF ; [facility] Metoprolol Tartrate 25 MG Oral Tablet 10/29/2021 Pro vider: MARIEL COLLADO DO Diagnosis: TAKE 1 TABLET BY MOUTH TWICE A DAY Last Documented On 10/29/2021 5:20PM By FARAZ RUFF ; [facility] H[employer] KwikPen 100 UNIT/ML Subcutaneous Solution Pen-injector 10/01/2021 Provider: MARIEL COLLADO DO Diagnosis: USE 4 TIMES A DAY PER SLIDIN G SCALE UP TO A MAX OF 30 UNITS PER DAY Last Documented On 10/01/2021 9:04AM By MARIEL COLLADO DO ; [facility] Lantus SoloStar 100 UNIT/ML Subcutaneous Solution Pen-injector 09/17/2021 Provider: MARIEL COLLADO DO Diagnosis: INJECT 22 UNIT SUBCUTANEOUS DAILY Last Documented On 09/17/2021 4:39PM By MARIEL COLLADO DO ; [facility] Metoprolol Tartrate 25 MG Oral Tablet 03/27/2021 Pro vider: MINE PASTRANA PA-C Diagnosis: Last Documented On 03/27/2021 5:33PM By Matilde Sena ; [facility] Lantus 100 UNIT/ML Subcutaneous Solution 03/27/2021 Provider: Diagnosis: inject 22 unit sub-q dailydispense QS x 1 month supply Last Documented On 03/27/2021 5:35PM By Matilde Sena ; [facility] Losartan Potassium 25 MG Oral Tablet 03/27/2021 Prov ider: Diagnosis: Last Documented On 03/27/2021 5:34PM By Matilde Sena ; [facility] Ferrous Sulfate 325 (65 Fe) MG Oral Tablet 02/13/2021 Provider: Diagnosis: Last Documented On 11:33AM By Ema RUFF ; [facility] levoFLOXacin 250 MG Oral Tablet 02/13/2021 Provider: Diagnosis: Last Documented On 11:35AM By Ema RUFF ; [facility] HumaLOG 100 UNIT/ML Subcutaneous Solution Cartridge Provider: Diagnosis: Last Documented On 11:34AM By Ema RUFF ; [facility] Amethia 0.15-0.03 &0.01 MG Oral Tablet 01/31/2021 Pr ovider: Diagnosis: Last Documented On 01/31/2021 10:20AM By BLADE COELHO DO ; [facility] Medications Administered Includes: Administered Medications from [...] 01/31/2021 Active Last Documented On 11:12AM ; [facility] Adhesive Tape Allergy Skin Rashes / Eruption of skin 02/27 Active Last Documented On 11:12AM ; [facility] Insurance Includes: Active Insurance Policies Plan Name Member ID Group # Subscriber Relationship Effect cari Dates 1 - [facility] [id number] SAL Cota Clinical Notes Includes: Clinical Notes from this encounter No Clinical Notes Recorded
--- OUTSIDE RECORDS SUMMARY | 2025-02-05 19:24 | XMS_ITS ---
Care Plan - [facility] Created on: February 05, 2025 SAL MITCHELL : 1980 Sex: Female Author Organization [facility] Address [address] [place] [address] Phone Care Team Providers Care Sheet Pile Driver Operator Name Role Phone Unavailable Unavailable Unavailable
--- OUTSIDE RECORDS SUMMARY | 2025-02-05 19:24 | XMS_ITS | Clinical Summary ---
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 02/13/2021 MATILDE L AMANDAONK EY DO Active Last Documented On 1 1:23PM ; [facility] Note: Unchanged Diabetes Mellitus with Foot Ulcer 02/13/2021 IS OSMAN L YOLETTE DO Active Last Documented On 1 1:20PM ; [facility] Essential Hypertension 02/13/2021 MATILDE L MCCONK EY DO Active Last Documented On 1 1:20PM ; [facility] Iron Deficiency Anemia 02/13/2021 MATILDE L MCCONK EY DO Active Last Documented On 1 1:23PM ; [facility] Note: Unchanged 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 02/13/2021 Adryan Lu YOLETTE DO Active Last Documented On 1 1:19PM ; [facility] Plan of Treatment Evaluated the patient. Discussed treatment options with the patient. Discussed with patient proper care and hygeine for their feet. Patient tolerated procedures well without incident. Procedure: (76020 Debridement of toenails 6-10) Surgically debrided and mechanically reduced 6 or more toenails specifically nails 1-5 left and 1-5 right. Hemmorhage occurred none. . - Last Documented On 05/29/2021 10:44AM ; [facility] Diabetic education and instructions have [...] - Last Documented On 05/29/2021 10:44AM ; [facility] Diabetic education and instructions have [...] - Last Documented On 05/29/2021 10:44AM ; [facility] Assessments Includes: Assessments from this encounter Findings - [E11.42 - Type 2 diabetes mellitus with diabetic polyneuropathy] Type 2 diabetes with diabetic polyneuropathy - Last Documented On 05/29/2021 10:44AM ; [facility] - [B35.1 - Tinea unguium] Onychomycosis - Last Documented On 05/29/2021 10:44AM ; [facility] - [M20.40 - Other hammer toe(s) (acquired), unspecified foot] Hammer toe - Last Documented On 05/29/2021 10:44AM ; [facility] - [Z89.431 - Acquired absence of right foot] Lower limb amputation at the foot - Last Documented On 05/29/2021 10:44AM ; [facility] Medical Equipment - Implanted Devices Includes: Current Devices No Medical Equipment Recorded Medications Includes: Medications discussed during this encounter and other current Medications Current Medications (continue as prescribed) Losartan Potassium 25 MG Oral Tablet 10/29/2021 Prov ider: ARUN CUBA D.O. Diagnosis: TAKE 1 TABLET BY MOUTH EVERY DAY Last Documented On 10/29/2021 5:20PM By FARAZ RUFF ; [facility] Citalopram Hydrobromide 10 MG Oral Tablet 10/29/2021 Provider: ARUN Buchanan Diagnosis: Adjustment disor sb with depressed mood TAKE 1 TABLET BY MOUTH EVERY DAY Last Documented On 10/29/2021 5:21PM By FARAZ RUFF ; [facility] Metoprolol Tartrate 25 MG Oral Tablet 10/29/2021 Pro vider: MARIEL COLLADO DO Diagnosis: TAKE 1 TABLET BY MOUTH TWICE A DAY Last Documented On 10/29/2021 5:20PM By FARAZ RUFF ; [facility] HumaLOG KwikPen 100 UNIT/ML Subcutaneous Solution Pen-injector 10/01/2021 Provider: MARIEL COLLADO DO Diagnosis: USE 4 TIMES A DAY PER SLIDIN G SCALE UP TO A MAX OF 30 UNITS PER DAY Last Documented On 10/01/2021 9:04AM By MARIEL COLLADO DO ; [facility] Lantus SoloStar 100 UNIT/ML Subcutaneous Solution Pen-injector 09/17/2021 Provider: MARIEL COLLADO DO Diagnosis: INJECT 22 UNIT SUBCUTANEOUS DAILY Last Documented On 09/17/2021 4:39PM By MARIEL COLLADO DO ; [facility] Metoprolol Tartrate 25 MG Oral Tablet 03/27/2021 Pro vider: MINE PASTRANA PA-C Diagnosis: Last Documented On 03/27/2021 5:33PM By Matilde Sena ; [facility] Lantus 100 UNIT/ML Subcutaneous Solution 03/27/2021 Provider: Diagnosis: inject 22 unit sub-q dailydispense QS x 1 month supply Last Documented On 03/27/2021 5:35PM By Matilde Sena ; [facility] Losartan Potassium 25 MG Oral Tablet 03/27/2021 Prov ider: Diagnosis: Last Documented On 03/27/2021 5:34PM By Matilde Sena ; [facility] Ferrous Sulfate 325 (65 Fe) MG Oral Tablet 02/13/2021 Provider: Diagnosis: Last Documented On 11:33AM By Ema RUFF ; [facility] levoFLOXacin 250 MG Oral Tablet [...] 2.0 Last Documented: On 05/29/2021 9:47AM ; [facility] Results Includes: Results discussed during this [...] 05/29/2021 Last Documented On 2 10:44AM ; [facility] Tobacco non-user 02/13/2021 Last Documented On 2 9:46AM ; [facility] Smoking Status Unknown Procedures and Surgical History Includes: Procedures from this encounter Procedures Code Diagnosis Performing Provider Service L ocation Service Date encouragement to exercise Last Documented On 2 10:43AM ; [facility] Clinical summary provided to patient Last Documented On 2 10:43AM ; [facility] Medical History Includes: Medical History addressed during this encounter Description Last Updated Diabetes 05/29/2021 Last Documented On 2 10:44AM ; [facility] Family History Includes: Family History addressed during this encounter Description Last Updated Family history of cancer 05/29/2021 Last Documented On 2 10:44AM ; [facility] Maternal history of Chest Pain 2 Last Documented On 2 10:44AM ; [facility] Maternal history of tobacco use 05/29/19 Last Documented On 2 10:44AM ; [facility] Paternal history of Chest Pain 2 Last Documented On 2 10:44AM ; [facility] Paternal history of family medical histo ry of high blood pressure 05/29/2021 Last Documented On 2 10:44AM ; [facility] Paternal history of Nerve Disorder 05/29 Last Documented On 2 10:44AM ; [facility] Paternal history of reported family hist ory of diabetes 05/29/2021 Last Documented On 2 10:44AM ; [facility] Paternal history of stroke syndrome 07/2021 Last Documented On 2 10:44AM ; [facility] Paternal history of tobacco use 05/29/19 Last Documented On 2 10:44AM ; [facility] Review of Systems Includes: Review of [...] Active Last Documented On 1 11:12AM ; [facility] Adhesive Tape Allergy Skin Rashes / Eruption of skin 02/27 Active Last Documented On 11:12AM ; [facility] Encounters Encounter Provider Location Date Check-In Time Check-Out Time Diagnosis PODIATRY CONSULTATION- ESTABLISHED PATIENT CHINYERE VERGARA DPM [facility] 022 9:38AM 10:00AM Acquired Deformity of Toe - Hammer Toe,Type 2 Diabetes with Diabetic Polyneuropathy,L ower Limb Amputation At Foot,Dermatophyt osis Nails Onychomycosis Insurance Includes: Active Insurance Policies Plan Name Member ID Group # Subscriber Relationship Effect cari Dates 1 - [facility] [id number] SAL MITCHELL Self Clinical Notes Includes: Clinical Notes from this encounter No Clinical Notes Recorded
--- OUTSIDE RECORDS SUMMARY | 2025-02-05 19:24 | XMS_ITS ---
Author Organization [facility] Address [address] [place] [address] Phone Care Team Providers Care Crew Chief Name Role Phone Unavailable Unavailable Unavailable Problems Includes: Active, inactive, and resolved Problems All Visits Onset Date Resolved Date Provider Condition S tatus Adjustment Disorder with Depressed Mood 02/27/2021 MATILDE L YOLETTE DO Active Last Documented On 02/27/2021 12:39PM ; [facility] Note: Unchanged Sebaceous Cyst 02/27/2021 MATILDE L YOLETTE DO Ac tive Last Documented On 02/27/2021 12:41PM ; [facility] Note: Unchanged Diabetes Mellitus Type 2 02/13/2021 MATILDE L YOLETTE DO Active Last Documented On 1 1:19PM ; [facility] 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 02/13/2021 MATILDE L MCCONK EY DO Active Last Documented On 1 1:23PM ; [facility] Note: Unchanged Diabetes Mellitus with Foot Ulcer 02/13/2021 IS OSMAN L YOLETTE DO Active Last Documented On 1 1:20PM ; [facility] Essential Hypertension 02/13/2021 MATILDE L MCCONK EY DO Active Last Documented On 1 1:20PM ; [facility] Iron Deficiency Anemia 02/13/2021 MATILDE L MCCONK EY DO Active Last Documented On 1 1:23PM ; [facility] Note: Unchanged Iron Deficiency Anemia 02/13/2021 MATILDE L MCCONK EY DO Inactive Last Documented On 1 1:23PM ; [facility] 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 Discu ssed treatment options with the patient. Discussed with patient proper care and hygeine for their feet. Patient tolerated procedures well without incident. Procedure: ([id number] Debridement of toenails 6-10) Surgically debrided and mechanically reduced 6 or more toenails specifically nails 1-5 left and 1-5 right. Hemmorhage occurred none. PODIATRY CONSULTATION- ESTABLISHED PATIENT with CHINYERE VERGARA DPM 05/29/2021 Last Documented On 2 10:44AM ; [facility] IV antibiotics Bone scan Pod iatry consultation Tuesday CONSULTATION - NEW PATIENT with BLADE COELHO DO 01/31/2021 Last Documented On 1 10:31AM ; [facility] Referrals To Diagnosis General Surgery Sebaceous cyst Last Documented On 4 12:23PM ; [facility] Assessments Includes: Assessments for all patient encounters Findings Encounter Date [M20.40 - Other hammer toe(s ) (acquired), unspecified foot] hammer toe PODIATRY CONSULTATION- ESTABLISHED PATIENT with CHINYERE VERGARA DPM 05/29/2021 Last Documented On 2 10:44AM ; [facility] [Z89.431 - Acquired absence of right foot] lower limb amputation at the foot PODIATRY CONSULTATION- ESTABLISHED PATIENT with CHINYERE Ba VERGARA DPM 05/29/2021 Last Documented On 2 10:44AM ; [facility] Onychomycosis PODIATRY CONSULTATIO N- ESTABLISHED PATIENT with CHINYERE Ba VERGARA DPM 05/29/2021 Last Documented On 2 10:44AM ; [facility] Type 2 diabetes with diabeti c polyneuropathy PODIATRY CONSULTATION- ESTABLISHED PATIENT with CHINYERE Ba VERGARA DPM 05/29/2021 Last Documented On 2 10:44AM ; [facility] Adjustment disorder with depressed mood CHECK UP with MATILDE DE LA VEGA DO 02/27/2021 Last Documented On 1 12:42PM ; [facility] Diabetes mellitus with foot ulcer CHECK UP with MATILDE L YOLETTE DO 02/27/2021 Last Documented On 1 12:42PM ; [facility] Essential hypertension CHECK UP with MATILDE L MCCO NKEY DO 02/27/2021 Last Documented On 1 12:42PM ; [facility] Sebaceous cyst CHECK UP with MATILDE L YOLETTE DO 02/27/2021 Last Documented On 1 12:42PM ; [facility] Diabetes mellitus with foot ulcer HOSPIT AL FOLLOW UP EXAM with MATILDE L YOLETTE DO 02/13/2021 Last Documented On 1 1:23PM ; [facility] Essential hypertension HOSPITAL FOLLOW UP EXAM w ith MATILDE L YOLETTE DO 02/13/2021 Last Documented On 1 1:23PM ; [facility] Iron deficiency anemia HOSPITAL FOLLOW UP EXAM w ith MATILDE L YOLETTE DO 02/13/2021 Last Documented On 1 1:23PM ; [facility] Lower limb amputation at the first toe H OSPITAL FOLLOW UP EXAM with MATILDE L YOLETTE DO 02/13/2021 Last Documented On 1 1:23PM ; [facility] Type 2 diabetes mellitus HOSPITAL FOLLOW UP EXAM with MATILDE L YOLETTE DO 02/13/2021 Last Documented On 1 1:23PM ; [facility] Necrotic ulcers of the right great toe CONSULTATION - NEW PATIENT with BLADE COELHO DO 01/31/2021 Last Documented On 1 10:31AM ; [facility] Medical Equipment - Implanted Devices Includes: Current and historical Devices No Medical Equipment Recorded Medications Includes: Current and historical Medications Current Medications (continue as prescribed) Losartan Potassium 25 MG Oral Tablet 10/29/2021 Prov ider: ARUN CUBA D.O. Diagnosis: TAKE 1 TABLET BY MOUTH EVERY DAY Last Documented On 10/29/2021 5:20PM By FARAZ RUFF ; [facility] Citalopram Hydrobromide 10 MG Oral Tablet 10/29/2021 Provider: ARUN Buchanan Diagnosis: Adjustment disor sb with depressed mood TAKE 1 TABLET BY MOUTH EVERY DAY Last Documented On 10/29/2021 5:21PM By FARAZ RUFF ; [facility] Metoprolol Tartrate 25 MG Oral Tablet 10/29/2021 Pro vider: MARIEL COLLADO DO Diagnosis: TAKE 1 TABLET BY MOUTH TWICE A DAY Last Documented On 10/29/2021 5:20PM By FARAZ RUFF ; [facility] HumaLOG KwikPen 100 UNIT/ML Subcutaneous Solution Pen-injector 10/01/2021 Provider: MARIEL COLLADO DO Diagnosis: USE 4 TIMES A DAY PER SLIDIN G SCALE UP TO A MAX OF 30 UNITS PER DAY Last Documented On 10/01/2021 9:04AM By MARIEL COLLADO DO ; [facility] Lantus SoloStar 100 UNIT/ML Subcutaneous Solution Pen-injector 09/17/2021 Provider: MARIEL COLLADO DO Diagnosis: INJECT 22 UNIT SUBCUTANEOUS DAILY Last Documented On 09/17/2021 4:39PM By MARIEL COLLADO DO ; [facility] Metoprolol Tartrate 25 MG Oral Tablet 03/27/2021 Pro vider: MINE PASTRANA PA-C Diagnosis: Last Documented On 03/27/2021 5:33PM By Matilde De La Vega ; [facility] Lantus 100 UNIT/ML Subcutaneous Solution 03/27/2021 Provider: Diagnosis: inject 22 unit sub-q dailydispense QS x 1 month supply Last Documented On 03/27/2021 5:35PM By Matilde De La Vega ; [facility] Losartan Potassium 25 MG Oral Tablet 03/27/2021 Prov ider: Diagnosis: Last Documented On 03/27/2021 5:34PM By Matilde De La Vega ; [facility] Ferrous Sulfate 325 (65 Fe) MG Oral Tablet 02/13/2021 Provider: Diagnosis: Last Documented On 11:33AM By Ema RUFF ; [facility] levoFLOXacin 250 MG Oral Tablet 02/13/2021 Provider: Diagnosis: Last Documented On 11:35AM By Ema RUFF ; [facility] HumaLOG 100 UNIT/ML Subcutaneous Solution Cartridge Provider: Diagnosis: Last Documented On 11:34AM By Ema RUFF ; [facility] Amethia 0.15-0.03 &0.01 MG Oral Tablet 01/31/2021 Pr ovider: Diagnosis: Last Documented On 01/31/2021 10:20AM By BLADE COELHO DO ; [facility] Past Medications on file Citalopram Hydrobromide 10 MG Oral Tablet 09/17/2021 - 10/29/2021 Provider: MARIEL COLLADO DO Diagnosis: Adjustment disor sb with depressed mood TAKE 1 TABLET BY MOUTH EVERY DAY Last Documented On 10/29/2021 4:35PM By FARAZ RUFF ; [facility] Losartan Potassium 25 MG Ora l Tablet 09/17/2021 - 10/29/2021 Provider: MARIEL COLLADO DO Diagnosis: TAKE 1 TABLET BY MOUTH EVERY DAY Last Documented On 10/29/2021 4:31PM By FARAZ RUFF ; [facility] Metoprolol Tartrate 25 MG Or al Tablet 09/17/2021 - 10/29/2021 Provider: MARIEL COLLADO DO Diagnosis: TAKE 1 TABLET BY MOUTH TWICE A DAY Last Documented On 10/29/2021 4:34PM By FARAZ RUFF ; [facility] Citalopram Hydrobromide 10 MG Oral Tablet 08/17/2021 - 09/17/2021 Provider: MARIEL COLLADO DO Diagnosis: Adjustment disor sb with depressed mood TAKE 1 TABLET BY MOUTH EVERY DAY Last Documented On 09/17/2021 12:23PM By MARIEL COLLADO DO ; [facility] Metoprolol Tartrate 25 MG Or al Tablet 08/17/2021 - 09/17/2021 Provider: MARIEL COLLADO DO Diagnosis: TAKE 1 TABLET BY MOUTH TWICE A DAY Last Documented On 09/17/2021 12:16PM By MARIEL COLLADO DO ; [facility] Losartan Potassium 25 MG Ora l Tablet 08/17/2021 - 09/17/2021 Provider: MARIEL COLLADO DO Diagnosis: TAKE 1 TABLET BY MOUTH EVERY DAY Last Documented On 09/17/2021 12:17PM By MARIEL COLLADO DO ; [facility] HumaLOG KwikPen 100 UNIT/ML Subcutaneous Solution Pen-injector 08/07/2021 - 10/01/2021 Provider: MARIEL COLLADO DO Diagnosis: USE 4 TIMES A DAY PER SLIDIN G SCALE UP TO A MAX OF 30 UNITS PER DAY Last Documented On 10/01/2021 8:59AM By MARIEL COLLADO DO ; [facility] Losartan Potassium 25 MG Ora l Tablet 07/16/2021 - 08/17/2021 Provider: MARIEL COLLADO DO Diagnosis: TAKE 1 TABLET BY MOUTH EVERY DAY Last Documented On 08/17/2021 12:59PM By MARIEL COLLADO DO ; [facility] Metoprolol Tartrate 25 MG Or al Tablet 07/16/2021 - 08/17/2021 Provider: MARIEL COLLADO DO Diagnosis: TAKE 1 TABLET BY MOUTH TWICE A DAY Last Documented On 08/17/2021 12:59PM By MARIEL COLLADO DO ; [facility] Citalopram Hydrobromide 10 MG Oral Tablet 07/15/2021 - 08/17/2021 Provider: MARIEL COLLADO DO Diagnosis: Adjustment disor sb with depressed mood TAKE 1 TABLET BY MOUTH EVERY DAY Last Documented On 08/17/2021 12:59PM By MARIEL COLLADO DO ; [facility] HumaLOG KwikPen 100 UNIT/ML Subcutaneous Solution Pen-injector 06/19/2021 - 08/07/2021 Provider: MARIEL COLLADO DO Diagnosis: USE 4 TIMES A DAY PER SLIDIN G SCALE UP TO A MAX OF 30 UNITS PER DAY Last Documented On 08/07/2021 12:51PM By MARIEL COLLADO DO ; [facility] Metoprolol Tartrate 25 MG Or al Tablet 06/19/2021 - 07/16/2021 Provider: MARIEL COLLADO DO Diagnosis: TAKE 1 TABLET BY MOUTH TWICE A DAY Last Documented On 07/16/2021 10:54AM By MARIEL COLLADO DO ; [facility] Lantus SoloStar 100 UNIT/ML Subcutaneous Solution Pen-injector 06/19/2021 - 09/17/2021 Provider: MARIEL COLLADO DO Diagnosis: INJECT 22 UNIT SUBCUTANEOUS DAILY Last Documented On 09/17/2021 4:33PM By MARIEL COLLADO DO ; [facility] Losartan Potassium 25 MG Ora l Tablet 06/19/2021 - 07/16/2021 Provider: MARIEL COLLADO DO Diagnosis: TAKE 1 TABLET BY MOUTH EVERY DAY Last Documented On 07/16/2021 10:54AM By MARIEL COLLADO DO ; [facility] Citalopram Hydrobromide 10 MG Oral Tablet 06/18/2021 - 07/15/2021 Provider: MARIEL COLLADO DO Diagnosis: Adjustment disor sb with depressed mood TAKE 1 TABLET BY MOUTH EVERY DAY Last Documented On 07/15/2021 8:17PM By MARIEL COLLADO DO ; [facility] Citalopram Hydrobromide 10 MG Oral Tablet 04/27/2021 - 06/18/2021 Provider: MATILDE DE LA VEGA DO Diagnosis: Adjustment disor sb with depressed mood TAKE 1 TABLET BY MOUTH EVERY DAY, needs an appt for further refills Last Documented On 06/18/2021 9:26PM By MARIEL COLLADO DO ; [facility] CeleXA 10 MG Oral Tablet 02/27/2021 - 04/27/2021 Provider: MATILDE DE LA VEGA DO Diagnosis: Adjustment disor sb with depressed mood 1 capsule daily Last Documented On 5:26PM By CHESTER RUFF ; [facility] Losartan Potassium 25 MG Oral Tablet 02/13/2021 - 06/2020 Provider: Diagnosis: Last Documented On 03/27/2021 5:34PM By Matilde De La Vega ; [facility] Lantus 100 UNIT/ML Subcutaneous Solution 02/13/2021 - 03/27/2021 Provider: Diagnosis: inject 22 unit sub-q daily Last Documented On 03/27/2021 5:35PM By Matilde De La Vega ; [facility] Metoprolol Tartrate 25 MG Oral Tablet 02/07/2021 - 03/27/2021 Provider: MINE Skinner PA-C Diagnosis: Last Documented On 03/27/2021 5:33PM By Matilde De La Vega ; [facility] Medications Administered Includes: Administered Medications in patient's chart No Administered Medications Recorded Results Includes: Results from 02/06/2024 through 02/05/2025 No Results Recorded For Specified Dates History of Present Illness History of Present Illness not supported for this document type No History of Present Illness Recorded Social History Description Last Updated Not a job-related injury 05/29/2021 Last Documented On 10:44AM ; [facility] Tobacco non-user 02/13/2021 Last Documented On 1 1:23PM ; [facility] Smoking Status Unknown Medical History Includes: Medical History in patient's chart Description Last Updated Diabetes 05/29/2021 Last Documented On 2 10:44AM ; [facility] Family History Includes: Family History in patient's chart Description Last Updated Family history of cancer 05/29/2021 Last Documented On 2 10:44AM ; [facility] Maternal history of Chest Pain 2 Last Documented On 2 10:44AM ; [facility] Maternal history of tobacco use 05/29/19 Last Documented On 2 10:44AM ; [facility] Paternal history of Chest Pain 2 Last Documented On 2 10:44AM ; [facility] Paternal history of family medical histo ry of high blood pressure 05/29/2021 Last Documented On 2 10:44AM ; [facility] Paternal history of Nerve Disorder 05/29 Last Documented On 2 10:44AM ; [facility] Paternal history of reported family hist ory of diabetes 05/29/2021 Last Documented On 2 10:44AM ; [facility] Paternal history of stroke syndrome 07/2021 Last Documented On 2 10:44AM ; [facility] Paternal history of tobacco use 05/29/19 Last Documented On 2 10:44AM ; [facility] Review of Systems Review of Systems not [...] Documented On 1 11:12AM ; [facility] Adhesive Tape Allergy Skin Rashes / Eruption of skin 02/27 Active Last Documented On 1 11:12AM ; [facility] Insurance Includes: Active Insurance Policies Plan Name Member ID Group # Subscriber Relationship Effect cari Dates 1 - [facility] [id number] SAL MITCHELL Self Clinical Notes Includes: Signed Clinical Notes starting from 05/14/2022 No Clinical Notes Recorded
[2025-02-05 19:43] VITALS: BMI 42.5
[2025-02-05 19:46] VITALS: BP 179/79; PULSE 85; RESP 20; TEMP 36.6; O2SAT 99
--- NOTE | 2025-02-05 19:47 | ADMIMU ---
This patient, Sydni Padron, was admitted to IMU status, and placed in IMU Room 231-01 at 1926. Patient/family oriented to hospital policies and general routines including ID bracelet, bed and alarms, visiting hours, pain management, procedures, bathroom and other care routines, personal items, smoking policy, room service/diet, and visiting hours. Valuables list has been completed. Information on how to activate the Rapid Response Team has been discussed. Patient/Family are encouraged to report perceived risks to care and to ask questions if they do not understand what they are told or what they should do.
[2025-02-05 20:00] VITALS: PULSE 83
--- NOTE | 2025-02-05 20:37 | PM.IMHP ---
H&P: HPI History of Present Illness Date/Time: 02/05/25 20:37 Chief Complaint: Shortness of Breath Narrative: 44 y/o F with PMH of diabetes, left BKA, CKD, depression, anxiety/panic disorder and DKA presents here with shortness of breath. The patient originally presented to [facility] on 02/05 for for further evaluation of shortness of breath.? She reported onset of shortness of breath a few hours prior to arrival to the emergency department.?Has been mild for the past few weeks. She reports accompanying general malaise, right lower extremity edema, abdominal fullness when she sits up, loose stools (none in last 24 hours), or dry mouth.? She denies accompanying chest pain, fever, chills, cough, nausea, vomiting, palpitations, or abdominal pain.? Of note, the patient reports she has been off all of her medications since 2022 and has not followed with any providers for her health.? Upon evaluation in the emergency department the patient was found to be in acute renal failure with a creatinine of 10.26, BUN 78, and GFR 4.? Last lab work available for comparison was in 2022 at which time her creatinine ranged from 0.7 to 2.3, more recently 1.5 - 2.3.? She denies any previously known end-stage renal disease, however has been previously told she has chronic kidney disease during her last admission here in 2022. ?She reports she has still been making urine and had a slight reduction in volume in the last couple days. Initial VS at presentation: 97.2? F, HR 90, R 20, 218/115, and 100% on RA. ED workup showed: No leukocytosis, hemoglobin 10.6, K 5.1, serum bicarb less than 5, creatinine 10.26, BUN 78, GFR 4 (1.5 and GFR 38 on 09/27/2022), A1c 8.6%, calcium 7.3, AST 54, alk-phos 172, BNP greater than 30,000, TSH 6.32. CXR showed mild CHF. 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 Code status: Full code. Smoking packs per day: 0 Smoking cigarettes per day: 0.0 Years smoked: 0 Smoking pack-years: 0.00 Smoking status: Never smoker Second hand tobacco smoke exposure: No Alcohol intake: never Drinks per week: 0 Substance use: never Substance use type: does not use Lack of Transportation: No Lack of Food: Never True Current Housing: I Have Housing Concerned About Future Housing: No Difficulty Paying Gas/Electric Bills: No Difficulty Paying for Meds: No Currently Unemployed: No Education: Bachelor's Degree Difficulty w/ Childcare or Family Care: No Living arrangements: with family Additional living arrangements comments: Lives with spouse and children. Occupation/Education: occupation Gender identity (if verbalized by the patient): Female Sexual Orientation (if Verbalized by the Patient): Straight or Heterosexual Spiritual care concerns: No Agree to blood products: No Meds Home Medications and Allergies Home Medications ?Medication ?Instructions ?Recorded ?Confirmed ?Type insulin lispro 100 unit/mL 1 sliding scale dose subcut 09/22/22 10/08/22 Rx subcutaneous pen USEASDIRECTD 30 days #15 mL carvedilol 3.125 mg tablet (Coreg) 3.125 mg PO Q12HR #60 tabs 09/30/22 02/05/25 Rx cyclobenzaprine 10 mg tablet 5 mg (1/2 x 10 mg) PO Q8H PRN 09/30/22 02/05/25 Rx Muscle Spasm #30 tabs escitalopram oxalate 10 mg tablet 10 mg PO DAILY #30 tabs 09/30/22 02/05/25 Rx hydralazine 50 mg tablet 50 mg PO Q6HR #120 tabs 09/30/22 02/05/25 Rx insulin detemir U-100 100 unit/mL 20 unit (0.2 mL) subcut HS 30 days 09/30/22 02/05/25 Rx (3 mL) subcutaneous pen (Levemir #15 mL FlexPen) pantoprazole 40 mg tablet,delayed 40 mg PO Q12HR #60 tabs 09/30/22 02/05/25 Rx release Allergies Allergy/AdvReac Type Severity Reaction Status Date / Time Penicillins Allergy Intermediate Rash Verified 02/05/25 21:05 adhesive tape Allergy Mild skin Verified 02/05/25 21:32 tears, erythema, itching Vital Signs Vital Signs - 24 hr 02/05/25 19:46 Temperature 97.9 F Pulse Rate 85 Respiratory Rate 20 Blood Pressure 179/79 H Pulse Oximetry 99 Exam Const: General: no acute distress and uncomfortable Other: , female, nontoxic appearance HENMT: Face/Nose/Sinus: Normal nares present Mouth: Yes moist mucous membranes Eyes: General: appearance normal, both eyes and all related structures Sclera: sclerae normal Pupils: Equal, round and reactive pupils present EOM: EOMs intact bilaterally Resp: Effort & Inspection: normal respiratory effort Other: Minimal bibasilar crackles, no wheezing. Mild conversational dyspnea noted. Cardio: Rate: regular rate Rhythm: regular rhythm Other: S1-S2 present without murmur, rub, ectopy GI: Other: Abdomen soft, nondistended, nontender. Normoactive bowel sounds in all quadrants. Skin: General skin exam: normal color and no rashes or lesions noted Other: Small scattered small areas of eschar less than 1 cm to bilateral shoulders, upper extremities, and forehead with no signs of infection. Neuro: Speech: normal speech Sensory Exam: normal sensation Other: A&O x4, generalized weakness Extrem: Other: Left BKA, pitting edema to the left thigh. Significant pitting edema, 4+ to the right lower extremity extending to the pannus. Thighs symmetric. Psych: Mental Status: mental status grossly normal Affect: normal affect Other: Good insight and judgment, very pleasant Assessment and Plan Assessment and plan (1) Renal failure: Qualifiers: Renal failure chronicity: unspecified chronicity Qualified Code(s): N19 - Unspecified kidney failure Code(s): N19 - Unspecified kidney failure Status: Acute Assessment and Plan: Has hx type 2 diabetes and left BKA secondary to a diabetic infection of her left foot in 2022.? Has been off her medications for the past 2 years and has not followed with any medical providers for her care.? Last renal function on file showed a creatinine of 1.5, BUN 20, and GFR 38.? Creatinine 10.26, at BUN 78, GFR for upon admission on 02/05.? Imaging showing mild CHF that is accompanied by complaints of shortness of breath and lower extremity swelling. ?Possibility of volume overload leading to worsening renal failure, however given significant risk factors may be ESRD.? Nephrology has been consulted for further workup.? Patient does make urine, given possibility of hypervolemia as cause of worsening renal function or at minimal a factor, trial Bumex 2 mg b.i.d. IV. - bicarb gtt at 50 mL/hr - renal ultrasound - check CK, urine sodium, protein/creatinine, urea, UA, Mag, phos, CRP - bladder scan x1 - monitor I&Os - nephrology consulted, Irving STYLES - trend renal function and electrolytes, correct electrolytes as needed - telemetry monitoring (2) CHF (congestive heart failure): Qualifiers: Heart failure type: unspecified Heart failure chronicity: acute Qualified Code(s): I50.9 - Heart failure, unspecified Code(s): I50.9 - Heart failure, unspecified Status: Acute Assessment and Plan: Patient originally presented for primary complaint of shortness of breath and right lower extremity swelling (history of left BKA).? CXR showed mild CHF.? BNP greater than 30,000. Given new onset renal failure, may be hypervolemia due to acute renal failure/ESRD verses new onset CHF or combination thereof. - BNP greater than 30,000 upon admission on 02/05 - reviewed chart, no previous echo on file - start Bumex 2 mg b.i.d. IV - monitor I&Os and daily weights - trend renal function - TSH elevated, checking T3/ T4 (3) Diabetes: Qualifiers: Chronic kidney disease stage: unspecified stage Diabetes mellitus complication detail: with chronic kidney disease Diabetes mellitus complication status: with kidney complications Diabetes mellitus mcfp insulin use: without termite control servicer use Diabetes mellitus type: type 2 Qualified Code(s): E11.22 - Type 2 diabetes mellitus with diabetic chronic kidney disease Code(s): E11.9 - Type 2 diabetes mellitus without complications Status: Chronic Assessment and Plan: Patient has a history of type 2 diabetes.? However she has been off of her medications for the past 2 years since 2022.? She has not followed with any providers since 2022.? Diabetes complicated by previous diabetic foot infection requiring a left BKA in 2022. - hypoglycemia protocol - POC blood glucose ACHS - correct regimen ordered - high dose TIDWM and HS - A1C 8.6% on 02/05/2025 - nutrition educator consulted - dietitian consulted (4) Elevated TSH: Code(s): R79.89 - Other specified abnormal findings of blood chemistry Status: Acute Assessment and Plan: TSH 6.320 on 02/05.? Previously within normal limits in August of 2022.? Will check T3/T4. (5) Hypertension: Qualifiers: Hypertension type: primary hypertension Qualified Code(s): I10 - Essential (primary) hypertension Code(s): I10 - Essential (primary) hypertension Status: Acute Assessment and Plan: - chronic, untreated for the past 2 years. Arrived significantly hypertensive to [facility], BP 218/115. Currently 179/79. - start Coreg 3.125 mg b.i.d., patient was previously on same medication as well as hydralazine 50 mg q.6. Will hold off on starting hydralazine PO as we are trialing Bumex IV. hydralazine p.r.n. for BP greater than 180/90 - monitor (6) Anemia: Qualifiers: Anemia type: due to chronic kidney disease Chronic kidney disease stage: unspecified stage Qualified Code(s): N18.9 - Chronic kidney disease, unspecified; D63.1 - Anemia in chronic kidney disease Code(s): D64.9 - Anemia, unspecified Status: Acute Assessment and Plan: Patient has history of anemia, likely secondary to CKD. Hemoglobin 10.6 upon admission. Previously 7.2 upon discharge on 09/27/2022. - check iron, TIBC, ferritin, B12, folic acid, and TSH - transfuse if <7 Plan Patient has history of frequently infiltrating peripheral IVs and difficult stick. Requesting PICC line be placed if she is going to have a prolonged hospital stay. Diet: Renal GI Prophylaxis: N/a DVT Prophylaxis: SCDs IV fluids: Bicarb gtt at 50 mL/hour Lines/Tubes: Peripheral IV Code Status: Full code Quality VTE Prophylaxis VTE prophylaxis: mechanical ordered Hospitalist MIPS Advance Care Plan I have confirmed that the patient's Advanced Care Plan is present, code status is documented, or surrogate decision maker is listed in patient medical record.: Yes Medication Reconciliation I have utilized all available resources to obtain, update and review the patients current medications (includes all prescriptions, OTC, herbals, cannabis, and nutritional supplements).: Yes
[2025-02-05 22:00] VITALS: PULSE 81
[2025-02-05] MEDS: BUMETANIDE INJ 2.5 MG/10 ML VIAL 2 MG IV PUSH (22:30)
[2025-02-05] MEDS: SODIUM BICARBONATE 8.4% 100 MEQ in WATER, STERILE FOR INJECTION 1,000 ML 50 MEQ IV CONT (22:30)
[2025-02-05 22:31] VITALS: PULSE 82
[2025-02-05 23:04] LABS: Iron 29 ug/dL (37-170)
[2025-02-05 23:08] LABS: CRP 3.3 mg/dL (<1.0); Creatine Kinase 498 U/L (30-135)
[2025-02-05 23:15] LABS: Percent Iron Saturation 7 % (20-50)
[2025-02-05 23:23] LABS: Free T4 Free Thyroxine 1.66 ng/dL (0.78-2.19)
[2025-02-05 23:42] LABS: Ferritin 16.70 ng/mL (6.24-137)
[2025-02-06] VITALS (23 sets, daily range): BP systolic 135–151; BP diastolic 69–83; PULSE 72–78; RESP 14–20; TEMP 36.4–36.8; O2SAT 96–98; BMI 42.0
--- NOTE | 2025-02-06 | ECHO_ITS ---
Patient Info Name: Sydni Padron Age: 44 years : 1980 Gender: Female Ht: 66 in Wt: 260 lbs BSA: 2.40 m2 HR: 73 bpm BP: 148 / 74 mmHg Heart Rhythm: Sinus Rhythm Technical Quality: Good Exam Date: 02/06/2025 8:52 AM Patient Status: O Admit Date: 02/05/2025 Exam Type: CA echo dop color flow w con Complete two-dimensional, color flow and Doppler transthoracic echocardiogram is performed with contrast to opacify the left ventricle and to improve the deliniation of the left ventricle endocardial borders. Staff Referring Physician: Della Villatoro Learning Operations Specialist: Radha Kay Attending Provider: Jairo Meyer MD Contrast/Agitated Saline Contrast/Ag. Saline: Definity Amount: 2.00 ml Summary 1. Left ventricular chamber dimension is normal. 2. Left ventricular systolic function is severely reduced, estimated at 30-35. 3. There is mildly increased left ventricular wall thickness. 4. The left ventricular diastolic function is grade I diastolic dysfunction. 5. There is mild to moderate mitral valve regurgitation. 6. There is mild to moderate tricuspid valve regurgitation. 7. Moderate pulmonary hypertension, estimated pulmonary arterial systolic pressure is 47 mmHg. 8. There is mild pulmonic regurgitation. Left Ventricle Left ventricular chamber dimension is normal. Left ventricular systolic function is severely reduced, estimated at 30-35. There is mildly increased left ventricular wall thickness. The left ventricular diastolic function is grade I diastolic dysfunction. Right Ventricle Right ventricular chamber dimension is normal. Right ventricular systolic function is normal. Left Atria Left atrial chamber dimension is normal. Right Atria Right atrial chamber dimension is normal. Aortic Valve The aortic valve is trileaflet. There is mild aortic valve sclerosis. There is no aortic valve stenosis. There is trace aortic valve regurgitation. Pulmonic Valve The pulmonic valve is normal. There is no pulmonic valve stenosis. There is mild pulmonic regurgitation. Mitral Valve The mitral valve has thickened leaflets. There is no mitral valve stenosis. There is mild to moderate mitral valve regurgitation. Tricuspid Valve The tricuspid valve leaflets are normal. There is no significant tricuspid valve stenosis. There is mild to moderate tricuspid valve regurgitation. Moderate pulmonary hypertension, estimated pulmonary arterial systolic pressure is 47 mmHg. Pericardium/Pleural The pericardium appears normal. There is no pericardial effusion. Inferior Vena Cava Normal inferior vena cava with >50% collapse upon inspiration consistent with normal right atrial pressure, 8 mmHg. Aorta The aortic root size at the sinus of Valsalva is normal. The prox ascending aorta size is normal. Left Ventricular Outflow Tract Name Value Normal LVOT 2D LVOT Diameter 2.0 cm LVOT Doppler LVOT Peak Velocity 110 cm/s LVOT Peak Gradient 5 mmHg LVOT Mean Gradient 3 mmHg LVOT VTI 24 cm LVOT Stroke Volume 75 ml LVOT CO 5.5 l/min LVOT CI 2.3 l/min/m2 Pulmonic Valve Name Value Normal RVOT Doppler RVOT Peak Velocity 47 cm/s RVOT Peak Gradient 1 mmHg PV Doppler PV Peak Velocity 86 cm/s PV Peak Gradient 3 mmHg Mitral Valve Name Value Normal MV Diastolic Function MV E Peak Velocity 87 cm/s MV A Peak Velocity 94 cm/s MV E/A 0.9 MV Decel Time (PW) 241 ms MV Annular TDI MV E/e' (Septal) 14.7 MV E/e' (Lateral) 10.9 MV E/e' (Average) 12.8 Tricuspid Valve Name Value Normal TV Regurgitation Doppler TR Peak Velocity 311 cm/s TR Peak Gradient 39 mmHg Estimated PAP/RSVP RA Pressure 8 mmHg <=5 PA Systolic Pressure 47 mmHg <36 RV Systolic Pressure 47 mmHg <36 Aortic Valve Name Value Normal AV Doppler AV Peak Velocity 130 cm/s AV Peak Gradient 7 mmHg AV Area (Cont Eq Steve) 2.7 cm2 AV DI (Steve) 0.85 AV Regurgitation 2D LVOT Area 3.2 cm2 Ventricles Name Value Normal LV Dimensions 2D/MM IVS Diastolic Thickness (2D) 1.1 cm 0.6-1.0 LVID Diastole (2D) 4.2 cm 3.8-5.2 LVIW Diastolic Thickness (2D) 1.2 cm 0.6-0.9 LVID Systole (2D) 3.5 cm 2.2-3.5 LVOT Diameter 2.0 cm LV Mass (2D Cubed) 171.21 g 67.00-162.00 LV Mass Index (2D Cubed) 71 g/m2 43-95 Relative Wall Thickness (2D) 0.57 <=0.42 LV Fractional Shortening/Ejection Fraction 2D/MM LV Fractional Shortening (2D) 17 % 27-45 LV EF (2D Teichholz) 36 % LV Diastolic Volume (4C MOD) 116 ml LV EF (4C MOD) 27 % LV Diastolic Volume (2C MOD) 136 ml LV EF (2C MOD) 30 % LV Diastolic Volume (BP MOD) 126 ml 46-106 LV Diastolic Volume Index (BP MOD) 52 ml/m2 29-61 LV Systolic Volume (BP MOD) 94 ml 14-42 LV Systolic Volume Index (BP MOD) 39 ml/m2 8-24 LV EF (BP MOD) 25 % 54-74 LV Diastolic Length (4C) 8.6 cm LV Systolic Length (4C) 7.9 cm LV Stroke Volume (4C MOD) 31 ml Atria Name Value Normal LA Dimensions LA Volume (4C A-L) 81 ml LA Volume (BP A-L) 65 ml RA Dimensions RA Systolic Major [place] Length (4C) 4.2 cm 2.2-2.8 RA Area (4C) 10.2 cm2 <=18.0 Report Signatures
[2025-02-06 00:12] LABS: Vitamin B12 954.0 pg/mL (239-931)
[2025-02-06 00:14] LABS: Total Triiodothyronine (T3) 0.82 NG/ML (0.82-1.58)
[2025-02-06 02:57] LABS: Add Urine Microscopic? YES; Appearance Urine Clear (Clear); Glucose Urine UA Trace mg/dL (Negative); Leukocyte Esterase Ur Negative LEU/UL (Negative); Nitrate Urine Negative (Negative); Specific Grav Ur 1.014 (1.001-1.035)
[2025-02-06 03:03] LABS: Urea Random Urine 288 MG/DL
[2025-02-06 04:24] LABS: Hematocrit 30.5 % (37.0-47.0); Hemoglobin 9.4 g/dL (12.0-15.0); Immature Granulocyte Percent A 0.2 % (0-0.5); Lymphocytes Absolute Auto 1.12 K/mm3 (0.9-3.2); Mean Corpuscular HGB Conc 30.8 g/dl (32-36); Mean Corpuscular Hemoglobin 23.4 pg (26-34); Mean Corpuscular Volume 75.9 fl (80-100); Nucleated Red Blood Cells Absolute Auto 0.050 K/mm3 (0.0-0.012); Nucleated Red Blood Cells Perc 0.9 % (0.0-0.2); Platelet Count Result 445 k/mm3 (150-375); Red Blood Count 4.02 M/mm3 (4.2-5.4); White Blood Count 5.8 K/mm3 (4.5-10.0)
[2025-02-06 04:39] LABS: Alanine Aminotransferase 35 U/L (6-35); Albumin Level 2.9 g/dL (3.5-5.1); Alkaline Phosphatase 158 U/L (38-126); Anion Gap 17 mmol/L (4-12); Aspartate Amino Transferase 56 U/L (14-36); Bilirubin,Total 0.6 mg/dL (0.2-1.3); Blood Urea Nitrogen 76 mg/dL (7-17); Calcium 6.7 mg/dL (8.4-10.2); Carbon Dioxide 8 mmol/L (22-30); Chloride 107 mmol/L (98-107); Estimated CRCL calculation 10 ml/min; Estimated Glomerular Filt Rate 5; Glucose 102 mg/dL (65-110); Magnesium 2.2 mg/dL (1.6-2.3); Potassium 4.7 mmol/L (3.4-5.0); Sodium 132 mmol/L (137-145); Total Protein 6.0 g/dL (6.3-8.2)
[2025-02-06 05:41] LABS: Total Protein Urine Random > 600 mg/dL; Ur Ttl Prot Creatinine Ratio > 10.38 mg/mg (0-0.20)
--- NOTE | 2025-02-06 07:25 | PC.NURSE ---
Handed off report to LIAN Andrews and HENRRY Odom. Passed along information that overnight, WOODROW Wen wanted PICC line placed on patient due to being a very hard stick, going to be admitted for a while and going to be on continuous fluids. This information was given during handoff to dayshift.
--- NOTE | 2025-02-06 07:50 | P.PNIM_ITS ---
Progress Note: A&P Assessment and Plan (1) CHF (congestive heart failure): Qualifiers: Heart failure chronicity: acute Heart failure type: unspecified Qualified Code(s): I50.9 - Heart failure, unspecified Code(s): I50.9 - Heart failure, unspecified Status: Acute Assessment and Plan: Patient originally presented for primary complaint of shortness of breath and right lower extremity swelling (history of left BKA).? CXR showed mild CHF.? BNP greater than 30,000. Given new onset renal failure, may be hypervolemia due to acute renal failure/ESRD verses new onset CHF or combination thereof. - BNP greater than 30,000 upon admission on 02/05 - reviewed chart, no previous echo on file - start Bumex 2 mg b.i.d. IV - monitor I&Os and daily weights - trend renal function - TSH elevated, checking T3/ T4 02/06: - T3 / T4 WDL, pt does not remember when she took Synthroid last - Pt denies SOB and CP. RLE 3+ pitting edema - amber hose ordered today - Pending ECHO --> Left ventricular systolic function is severely reduced, estimated at 30-35. - Cardiology consulted (2) Diabetes: Qualifiers: Chronic kidney disease stage: unspecified stage Diabetes mellitus complication detail: with chronic kidney disease Diabetes mellitus complication status: with kidney complications Diabetes mellitus meterman insulin use: without meterman use Diabetes mellitus type: type 2 Qualified Code(s): E11.22 - Type 2 diabetes mellitus with diabetic chronic kidney disease Code(s): E11.9 - Type 2 diabetes mellitus without complications Status: Chronic Assessment and Plan: Patient has a history of type 2 diabetes.? However she has been off of her medications for the past 2 years since 2022.? She has not followed with any providers since 2022.? Diabetes complicated by previous diabetic foot infection requiring a left BKA in 2022. - hypoglycemia protocol - POC blood glucose ACHS - correct regimen ordered - high dose TIDWM and HS - A1C 8.6% on 02/05/2025 - rotary screen printing machine operator consulted - dietitian consulted 02/06: Blood sugars have been stable on current regimen (3) Elevated TSH: Code(s): R79.89 - Other specified abnormal findings of blood chemistry Status: Acute Assessment and Plan: TSH 6.320 on 02/05.? Previously within normal limits in August of 2022.? Will check T3/T4. 02/06: T3/T4 WDL, pt has not been taking Synthroid, she cannot remember when she took it last. (4) Hypertension: Qualifiers: Hypertension type: primary hypertension Qualified Code(s): I10 - Essential (primary) hypertension Code(s): I10 - Essential (primary) hypertension Status: Acute Assessment and Plan: - chronic, untreated for the past 2 years. Arrived significantly hypertensive to [facility], BP 218/115. Currently 179/79. - start Coreg 3.125 mg b.i.d., patient was previously on same medication as well as hydralazine 50 mg q.6. Will hold off on starting hydralazine PO as we are trialing Bumex IV. hydralazine p.r.n. for BP greater than 180/90 - monitor 02/06: - potentially re-start PO hydral pending BPs (5) Anemia: Qualifiers: Anemia type: due to chronic kidney disease Chronic kidney disease stage: unspecified stage Qualified Code(s): N18.9 - Chronic kidney disease, unspecified; D63.1 - Anemia in chronic kidney disease Code(s): D64.9 - Anemia, unspecified Status: Acute Assessment and Plan: Patient has history of anemia, likely secondary to CKD. Hemoglobin 10.6 upon admission. Previously 7.2 upon discharge on 09/27/2022. - check iron, TIBC, ferritin, B12, folic acid, and TSH - transfuse if <7 02/06: -Continue with daily CBC -Iron % sat 7L, will give Venofer and start on orals upon discharge -Recheck iron % tomorrow Plan Patient has history of frequently infiltrating peripheral IVs and difficult stick. Requesting PICC line be placed if she is going to have a prolonged hospital stay. Pending neph consult, echo, and renal US Diet: Renal GI Prophylaxis: N/a DVT Prophylaxis: SCDs IV fluids: Bicarb gtt at 50 mL/hour Lines/Tubes: Peripheral IV Code Status: Full code Time Spent With Patient Time: 35 Subjective Date/time seen: 02/06/25 1022 Interval history: Pt reports increased RLE that started this AM. Inspected and no skin abnormalities. Pt turned and pain alleviated mostly with pressure off R hamstring area. Pt denies SOB and CP. Updated her on new dx CHF. Pt with no SOB or other issues. She is aware for the plans of surveillence of her kidney labs and function. Review of Systems Review of Systems: All systems reviewed & are unremarkable except as noted in HPI and below Exam Const: General: no acute distress and uncomfortable Other: , female, nontoxic appearance HENMT: Face/Nose/Sinus: Normal nares present Mouth: Yes moist mucous membranes Eyes: General: appearance normal, both eyes and all related structures Sclera: sclerae normal Pupils: Equal, round and reactive pupils present EOM: EOMs intact bilaterally Resp: Effort & Inspection: normal respiratory effort Other: Minimal bibasilar crackles, no wheezing. Mild conversational dyspnea noted. Cardio: Rate: regular rate Rhythm: regular rhythm Other: S1-S2 present without murmur, rub, ectopy GI: Other: Abdomen soft, nondistended, nontender. Normoactive bowel sounds in all quadrants. Skin: General skin exam: normal color and no rashes or lesions noted Other: Small scattered small areas of eschar less than 1 cm to bilateral shoulders, upper extremities, and forehead with no signs of infection. RLE: Normal inspection Neuro: Cranial nerves: Yes Equal, round and reactive pupils present Speech: normal speech Sensory Exam: normal sensation Other: A&O x4, generalized weakness Extrem: Other: Left BKA. RLE 3+ extending to the pannus. Thighs symmetric. Psych: Mental Status: mental status grossly normal Affect: Anxious affect present Objective Data Vital Signs Vital Signs: Vital Signs - 24 hr 02/05/25 19:46 02/05/25 20:00 02/05/25 20:00 Temperature 97.9 F Pulse Rate 85 83 Respiratory Rate 20 Blood Pressure 179/79 H Pulse Oximetry 99 Oxygen Delivery Room Air 02/05/25 22:00 02/05/25 22:31 02/06/25 00:00 Temperature Pulse Rate 81 82 Respiratory Rate Blood Pressure Pulse Oximetry Oxygen Delivery Room Air 02/06/25 00:00 02/06/25 00:00 02/06/25 02:00 Temperature 98.1 F Pulse Rate 78 76 75 Respiratory Rate 14 Blood Pressure 151/80 H Pulse Oximetry 97 Oxygen Delivery 02/06/25 04:00 02/06/25 04:00 02/06/25 04:00 Temperature 97.5 F L Pulse Rate 72 72 Respiratory Rate 14 Blood Pressure 148/74 H Pulse Oximetry 97 Oxygen Delivery Room Air 02/06/25 06:00 Temperature Pulse Rate 73 Respiratory Rate Blood Pressure Pulse Oximetry Oxygen Delivery Intake/Output Intake/Output: Intake & Output 02/03/25 02/04/25 02/05/25 02/06/25 23:59 23:59 23:59 23:59 Intake Total 610 Output Total 300 Balance 310 Meds/Results Medications: Active Medications Generic Name Dose Route Start Last Admin Trade Name Freq PRN Reason Stop Dose Admin Acetaminophen 650 mg 02/05/25 20:41 Acetaminophen 325 Mg Tablet PO Q4H PRN Mild Pain (1-3) or Fever Bumetanide 2 mg 02/05/25 21:55 02/05/25 22:30 Bumetanide Inj 2.5 Mg/10 Ml Vial IV PUSH 2 mg BID MARGUERITE Administration Carvedilol 3.125 mg 02/05/25 21:00 02/05/25 22:31 Carvedilol 3.125 Mg Tablet PO 3.125 mg Q12HR MARGUERITE Administration Dextrose 12.5 gm 02/05/25 21:36 Dextrose 50% 25 Gm/50 Ml Syringe IV PUSH PRN PRN Hypoglycemia Protocol Glucagon 1 mg 02/05/25 21:36 Glucagon For Inj 1 Mg Vial IM PRN PRN Hypoglycemia Protocol Glucose 15 gm 02/05/25 21:36 Glucose Oral Gel 15 Gm Of Glucse In 37.5 Gm Tube PO PRN PRN Hypoglycemia Protocol Hydralazine HCl 10 mg 02/05/25 20:41 Hydralazine Hcl 20 Mg/Ml Vial IV PUSH Q4H PRN Blood Pressure - High, >180/90 Dextrose 1,000 mls @ 100 mls/hr 02/05/25 21:36 Dextrose 5% 1,000 Ml IVPB PRN PRN Hypoglycemia Protocol Sodium Bicarbonate 100 meq/ 1,100 mls @ 50 mls/hr 02/05/25 22:00 02/05/25 22:30 Sterile Water IV CONT 50 mls/hr On Hold: 02/06/25 07:08 .Q22H MARGUERITE Administration Insulin Aspart 4 - 8 units 02/06/25 08:00 Insulin Aspart (*Bkc) 100 Units/Ml SUB-Q TIDWM MARGUERITE Protocol Insulin Aspart 2 - 4 units 02/05/25 21:45 02/05/25 22:26 Insulin Aspart (*Bkc) 100 Units/Ml SUB-Q Not Given HS [facility] Protocol Morphine Sulfate 2 mg 02/05/25 21:29 Morphine Sulfate (*Crx) 4 Mg/Ml Inj IV PUSH Q4H PRN Pain Rated 7-10 Ondansetron HCl 4 mg 02/05/25 20:41 Ondansetron Inj 4 Mg/2 Ml Vial IV PUSH Q6H PRN Nausea And Vomiting Perflutren Lipid Microsphere 0 ml 02/05/25 22:24 Perflutren Lipid Microspheres 1.5 Ml Vial Diluted To 10 Ml Total Volume IV PUSH 02/08/25 22:24 ONCE PRN adequate visualization Protocol Sodium Bicarbonate 650 mg 02/06/25 09:00 Sodium Bicarbonate Tab 650 Mg Tablet PO TID [facility] Labs Labs: Laboratory Results - last 24 hr 02/05/25 02/05/25 02/05/25 22:07 22:26 22:26 WBC RBC Hgb Hct MCV MCH MCHC RDW Plt Count MPV Immature Gran % (Auto) Neut % (Auto) Lymph % (Auto) [place] % (Auto) Eos % (Auto) Baso % (Auto) Lymph # (Auto) [place] # (Auto) Eos # (Auto) Baso # (Auto) Abs Immat Gran (auto) Absolute Neuts (auto) Absolute Nucleated RBC Nucleated RBC % Sodium Potassium Chloride Carbon Dioxide Anion Gap BUN Creatinine Estim Creat Clear Calc Estimated GFR Glucose POC Capillary Glucose 113 H Calcium Phosphorus Magnesium Iron 29 L TIBC 400 % Saturation 7 L Ferritin 16.70 Total Bilirubin AST ALT Alkaline Phosphatase Total Creatine Kinase 498 H C-Reactive Protein 3.3 H Total Protein Albumin Vitamin B12 954.0 H Folate 7.8 Free T4 Cancelled 1.66 Total T3 0.82 Urine Color Urine Appearance Urine pH Ur Specific [place] Urine Protein Urine Glucose (UA) Urine Ketones Ur Blood (Man) Urine Nitrate Urine Bilirubin Urine Urobilinogen Leukocyte Esterase Rfl Urine RBC Urine WBC Ur Squamous Epith Cells Urine Bacteria Urine Casts U Random Total Protein Ur Random Sodium Ur Random Urea Urine Creatinine Protein/Creat Ratio 2 02/06/25 02/06/25 02/06/25 02:41 02:41 02:41 WBC RBC Hgb Hct MCV MCH MCHC RDW Plt Count MPV Immature Gran % (Auto) Neut % (Auto) Lymph % (Auto) [place] % (Auto) Eos % (Auto) Baso % (Auto) Lymph # (Auto) [place] # (Auto) Eos # (Auto) Baso # (Auto) Abs Immat Gran (auto) Absolute Neuts (auto) Absolute Nucleated RBC Nucleated RBC % Sodium Potassium Chloride Carbon Dioxide Anion Gap BUN Creatinine Estim Creat Clear Calc Estimated GFR Glucose POC Capillary Glucose Calcium Phosphorus Magnesium Iron TIBC % Saturation Ferritin Total Bilirubin AST ALT Alkaline Phosphatase Total Creatine Kinase C-Reactive Protein Total Protein Albumin Vitamin B12 Folate Free T4 Total T3 Urine Color Yellow Urine Appearance Clear Urine pH 5.0 Ur Specific [place] 1.014 Urine Protein 3+ H Urine Glucose (UA) Trace H Urine Ketones Negative Ur Blood (Man) 2+ H Urine Nitrate Negative Urine Bilirubin Negative Urine Urobilinogen 0.2 Leukocyte Esterase Rfl Negative Urine RBC 0-2 Urine WBC 0-5 Ur Squamous Epith Cells None seen Urine Bacteria None seen Urine Casts 3-5 U Random Total Protein > 600 Ur Random Sodium 44 Ur Random Urea 288 Cancelled Urine Creatinine 57.8 Cancelled Protein/Creat Ratio 2 > 10.38 H 02/06/25 02/06/25 04:15 06:52 WBC 5.8 RBC 4.02 L Hgb 9.4 L Hct 30.5 L MCV 75.9 L MCH 23.4 L MCHC 30.8 L RDW 19.9 H Plt Count 445 H MPV 10.2 Immature Gran % (Auto) 0.2 Neut % (Auto) 63.8 Lymph % (Auto) 19.2 [place] % (Auto) 12.3 H Eos % (Auto) 3.3 Baso % (Auto) 1.2 Lymph # (Auto) 1.12 [place] # (Auto) 0.7 H Eos # (Auto) 0.2 Baso # (Auto) 0.1 Abs Immat Gran (auto) 0.01 Absolute Neuts (auto) 3.7 Absolute Nucleated RBC 0.050 H Nucleated RBC % 0.9 H Sodium 132 L Potassium 4.7 Chloride 107 Carbon Dioxide 8 L Anion Gap 17 H BUN 76 H Creatinine 9.18 H Estim Creat Clear Calc 10 Estimated GFR 5 L Glucose 102 POC Capillary Glucose 88 Calcium 6.7 L Phosphorus 9.0 H Magnesium 2.2 Iron TIBC % Saturation Ferritin Total Bilirubin 0.6 AST 56 H ALT 35 Alkaline Phosphatase 158 H Total Creatine Kinase C-Reactive Protein Total Protein 6.0 L Albumin 2.9 L Vitamin B12 Folate Free T4 Total T3 Urine Color Urine Appearance Urine pH Ur Specific [place] Urine Protein Urine Glucose (UA) Urine Ketones Ur Blood (Man) Urine Nitrate Urine Bilirubin Urine Urobilinogen Leukocyte Esterase Rfl Urine RBC Urine WBC Ur Squamous Epith Cells Urine Bacteria Urine Casts U Random Total Protein Ur Random Sodium Ur Random Urea Urine Creatinine Protein/Creat Ratio 2 Quality VTE Prophylaxis VTE prophylaxis: mechanical ordered
[2025-02-06] MEDS: BUMETANIDE INJ 2.5 MG/10 ML VIAL 2 MG IV PUSH (09:43)
[2025-02-06] MEDS: SODIUM BICARBONATE TAB 650 MG TABLET PO ×3 (09:43→18:03)
[2025-02-06] MEDS: PERFLUTREN LIPID MICROSPHERES 1.5 ML VIAL DILUTED TO 10 ML TOTAL VOLUME IV PUSH (10:43)
--- NOTE | 2025-02-06 10:44 | IVDEFINITY ---
Prior to administration of IV Definity the patient was educated on the risks and benefits of the imaging enhancing agent including potential adverse side effects. The patient verbalized understanding. Allergies were verified. No exclusion criteria were identified and at least one of the following inclusion criteria were met: 1) physician request, 2) patient technically difficult to image (per the [place] [employer] guidelines of two or more segments not discernable within the apical view), or 3) questionable left ventricular function. ?
[2025-02-06] MEDS: MORPHINE SULFATE (*CRX) 4 MG/ML INJ 2 MG IV PUSH (13:35)
--- NOTE | 2025-02-06 13:50 | P.CONNP_ITS ---
Assessment and Plan Assessment and plan (1) Acute kidney injury: Code(s): N17.9 - Acute kidney failure, unspecified Status: Acute Assessment and Plan: * as noted by admission labs (creatinine 10.26mg/dL) * unclear acuity versus chronicity of this issue (see #2) * complicated/associated with volume overload/anasarca and metabolic acidosis * evaluation to date noted: * urine electrolytes non-prerenal * UA with blood and protein * CPK mildly elevated but not enough to affect kidney function * renal ultrasound pending * nephrotic range proteinuria * follow-up on renal ultrasound * given blood and protein on UA, check serological evaluation * not much urine output with trial of IV diuretics * high risk for need for [facility]/dialysis * consider renal biopsy?? * follow trend of repeat labs and UOP (2) Stage 3b chronic kidney disease: Code(s): N18.32 - Chronic kidney disease, stage 3b Status: Chronic Assessment and Plan: * creatinine down to 1.5mg/dL on September 2022 discharge * unclear if renal function recovered to normal (creatinine did go down as low as 0.7mg/dL during August/September 2022 hospitalization) * multiple risk factors for CKD: * hypertension * diabetes * vascular disease * recently discovered cardiomyopathy * other(?) (3) Volume overload: Code(s): E87.70 - Fluid overload, unspecified Status: Acute Assessment and Plan: * as noted by clinical exam * multifactorial etiology: * renal dysfunction * nephrotic range proteinuria/nephrotic syndrome * cardiomyopathy * vascular disease * on scheduled IV bumex but may need to consider IV loop diuretic gtt... * unclear how well she will respond given the severity of her renal dysfunction * may need to consider HD/DUF if fails to respond to conservative therapy (4) Metabolic acidosis: Code(s): E87.20 - Acidosis, unspecified Status: Acute Assessment and Plan: * quite severe on presentation (CO2 < 5) * presuably due to GARRISON/renal dysfunction * started on oral bicarbonate to compensate * hold of bicarb fluids due to #3 (5) Cardiomyopathy: Code(s): I42.9 - Cardiomyopathy, unspecified Status: Acute Assessment and Plan: * acute versus chronic? * ischemic versus non-ischemic? * Echo results noted (02/06): * left ventricular systolic function is severely reduced, estimated at 30 - 35% * left ventricular diastolic function is grade I diastolic dysfunction * mild to moderate mitral valve regurgitation * mild to moderate tricuspid valve regurgitation * moderate pulmonary hypertension, estimated pulmonary arterial systolic pressure is 47 mmHg * mild pulmonic regurgitation * Cardiology consulted * GMDT maybe somewhat limited by her severe renal dysfunction * candidate for inotropic therapy? (6) Hypertension: Qualifiers: Hypertension type: primary hypertension Qualified Code(s): I10 - Essential (primary) hypertension Code(s): I10 - Essential (primary) hypertension Status: Acute Assessment and Plan: * quite elevated on ER presentation (systolic BP > 200) * better control at this time * follow trend of hemodynamics (7) Anemia: Qualifiers: Anemia type: due to chronic kidney disease Chronic kidney disease stage: unspecified stage Qualified Code(s): N18.9 - Chronic kidney disease, unspecified; D63.1 - Anemia in chronic kidney disease Code(s): D64.9 - Anemia, unspecified Status: Acute Assessment and Plan: * at least partly related to renal dysfunction * anemia studies demonstrate iron deficiency * getting IV iron * follow trend of H/H (8) Diabetes: Qualifiers: Chronic kidney disease stage: unspecified stage Diabetes mellitus complication detail: with chronic kidney disease Diabetes mellitus complication status: with kidney complications Diabetes mellitus group home insulin use: w [facility] newspaper illustrator use Diabetes mellitus type: type 2 Qualified Code(s): E11.22 - Type 2 diabetes mellitus with diabetic chronic kidney disease Code(s): E11.9 - Type 2 diabetes mellitus without complications Status: Chronic Assessment and Plan: * follow accu-cheks * glycemic control per hospitalist Long extensive discussion (> 20 minutes) with the patient regarding her advanced/ severe renal dysfunction. I voiced my concerns that given her significant fluid overload/swelling/ anasarca, conservative therapy with diuretics may not be enough to optimize her volume status. Furthermore, her renal dysfunction has predisposed her to a significant metabolic acidosis, mild anemia, mild hyponatremia, hypocalcemia, and hypoalbuminemia and given these metabolic issues in conjunction with her fluid status, she remains at high risk for the need for renal replacement therapy/dialysis. I also discussed with her the possibility that she may need a renal biopsy for definitive diagnosis as to the etiology of her renal dysfunction if it does not improve with supportive therapy. She appeared to voice understanding regarding these issues. I will continue to follow the patient with you while she remains hospitalized and make further recommendations as deemed necessary. Thank you for allowing me to participate in the care of this patient. L History of Present Illness Reason for Consult Consult date: 02/06/25 Reason for consult: acute renal failure (on chronic kidney disease ) Chief Complaint Chief complaint: acute kidney failure History of Present Illness Narrative: The patient is a 44-year-old female with a past medical history as outlined who presented to [facility] on tends emergency room complaints shortness of breath. The patient states that the shortness of breath started few weeks ago and was progressively getting a bit worse. Few hours prior to her presentation to the emergency room, she felt that her shortness of breath was getting worse. Other associated symptoms included general fatigue, worsening right lower extremity and bilateral upper extremity edema/swelling, abdominal fullness, and dry mouth. She reports fevers, chills chest pain, cough, nausea, vomiting, palpitations dizziness, lightheadedness, or abdominal pain. It should also be noted that the patient has not seen a physician in the last 2 years has not been on any medications for her chronic medical issues either. Due to these constellation of symptoms mentioned, she presented to the emergency room for further assessment. Workup and evaluation in the emergency room at [facility] [place], [place] and demonstrated the patient be quite hypertensive with a systolic BP greater than 200 but afebrile and with stable oxygenation room air. Routine blood tests demonstrated a normal white blood cell count, hemoglobin 10.6, platelet count of 475, sodium 137, potassium 5.1, CO2 less than 5, BUN 78, creatinine 10.26, calcium 7.3, AST 54, alkaline phosphatase 172, proBNP greater than 30,000, TSH 6.32 hemoglobin A1c 8.6 and albumin 3.6. Chest x-ray demonstrated mild congestive heart failure. Given her evidence of advanced renal dysfunction which was significantly different than labs done 2 years ago, she was transferred to [facility] for further evaluation therapy. Since her admission, she was started on a low-dose bicarb drip given her severe metabolic acidosis and initiated on IV diuretic therapy given her volume overload /anasarca although her urine output since this intervention has not been very significant. Renal consultation was requested due to her acute kidney injury/acute renal failure lower suspected baseline chronic kidney disease. As already mentioned above she has not seen a physician almost 2 years so I have no intervening blood work to ascertain what her kidney function was doing. The last blood test I have ordered her last hospitalization here at [facility] 2 years ago and her discharge creatinine that time 0.5 mg/dL. The assumption was that her kidney function would continue to improve with difficult to say if this actually occurred she does have numerous risk factors for chronic kidney disease the reason baseline. Further complicating matter is that her echocardiogram done earlier today shows a significant cardiomyopathy with an EF 30-30%. Although she does not have any critical electrolyte abnormalities she does have a significant metabolic acidosis and she has clear evidence of volume overload/anasarca that has responded very well to conservative therapy. Currently, the time my evaluation her respiratory status syncope relatively stable she still has a significant amount of swelling edema which appears quite anxious. Review of Systems 2 Review of Systems: As per HPI. 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 Code status: Full code. Smoking packs per day: 0 Smoking cigarettes per day: 0.0 Years smoked: 0 Smoking pack-years: 0.00 Smoking status: Never smoker Second hand tobacco smoke exposure: No Alcohol intake: never Drinks per week: 0 Substance use: never Substance use type: does not use Lack of Transportation: No Lack of Food: Never True Current Housing: I Have Housing Concerned About Future Housing: No Difficulty Paying Gas/Electric Bills: No Difficulty Paying for Meds: No Currently Unemployed: No Education: Bachelor's Degree Difficulty w/ Childcare or Family Care: No Living arrangements: with family Additional living arrangements comments: Lives with spouse and children. Occupation/Education: occupation Gender identity (if verbalized by the patient): Female Sexual Orientation (if Verbalized by the Patient): Straight or Heterosexual Spiritual care concerns: No Agree to blood products: No Meds Home Medications and Allergies Home Medications ?Medication ?Instructions ?Recorded ?Confirmed ?Type carvedilol 3.125 mg tablet (Coreg) 3.125 mg PO Q12HR # 60 tabs 09/30/22 02/05/25 Rx cyclobenzaprine 10 mg tablet 5 mg (1/2 x 10 mg) PO Q8H PRN 09/30/22 02/05/25 Rx Muscle Spasm #30 tabs escitalopram oxalate 10 mg tablet 10 mg PO DAILY #30 t abs 09/30/22 02/05/25 Rx hydralazine 50 mg tablet 50 mg PO Q6HR #120 tabs 12/1502/05/25 Rx insulin detemir U-100 100 unit/mL 20 unit (0.2 mL) sub cut HS 30 days 09/30/22 02/05/25 Rx (3 mL) subcutaneous pen (Levemir #15 mL FlexPen) pantoprazole 40 mg tablet,delayed 40 mg PO Q12HR #60 t abs 09/30/22 02/05/25 Rx release Allergies Allergy/AdvReac Type Severity Reaction Status Date / Time Penicillins Allergy Intermediate Rash Verified 02/05/25 21:05 adhesive tape Allergy Mild skin Verified 02/05/25 21:32 tears, erythema, itching Vital Signs Vital Signs Temp Pulse Resp BP Pulse Ox O2 Del Method 02/06/25 11:49 98.2 F 74 18 142/77 H 96 02/06/25 10:00 74 02/06/25 09:42 75 02/06/25 08:00 75 02/06/25 07:58 97.6 F 74 20 150/75 H 98 02/06/25 06:00 73 02/06/25 04:00 Room Air 02/06/25 04:00 72 02/06/25 04:00 97.5 F L 72 14 148/74 H 97 02/06/25 02:00 75 02/06/25 00:00 98.1 F 76 14 151/80 H 97 02/06/25 00:00 78 02/06/25 00:00 Room Air 02/05/25 22:31 82 02/05/25 22:00 81 02/05/25 20:00 Room Air 02/05/25 20:00 83 02/05/25 19:46 97.9 F 85 20 179/79 H 99 Exam 2 Narrative: GENERAL APPEARANCE: large but well developed well nourished female in no acute distress HEENT: normocephalic, atraumatic, normal conjunctiva and sclera, nares patient NECK: no lymphadenopathy, thyromegaly, or JVD MOUTH: normal lips, teeth, and gums CARDIOVASCULAR: RRR, normal S1 and S2, no rub RESPIRATORY: diminished at based with a few crackles noted ABDOMEN: soft, nontender, nondistended, positive bowel sounds present EXTREMITIES: no evidence of cyanosis, clubbing; 3+ edema (RLE up to abdomen and BUEs); s/p left BKA NEUROLOGICAL: alert and oriented x 3; CN II - XII intact bilaterally; no focal deficits noted Results Lab Results 02/07/25 01:04 02/07/25 01:04 Lab results: Most recent lab results Calcium 6.7 mg/dL (8.4-10.2) L 02/06/25 04:15 Phosphorus 9.0 mg/dL (2.5-4.5) H 02/06/25 04:15 Magnesium 2.2 mg/dL (1.6-2.3) 02/06/25 04:15 Urine Creatinine 57.8 mg/dL 02/06/25 02:41 Urine Creatinine Cancelled 02/06/25 02:41
--- NOTE | 2025-02-06 16:23 | PM.CNCAR ---
Assessment and Plan Assessment and plan (1) CHF (congestive heart failure): Qualifiers: Heart failure chronicity: acute Heart failure type: unspecified Qualified Code(s): I50.9 - Heart failure, unspecified <Dina N. Ventimiglia, LAUNDRY MACHINE TENDER - Last Filed: 02/06/25 16:42> Code(s): I50.9 - Heart failure, unspecified <Dina N. Ventimiglia, LAUNDRY MACHINE TENDER - Last Filed: 02/06/25 16:42> Status: Acute <Dina N. Ventimiglia, LAUNDRY MACHINE TENDER - Last Filed: 02/06/25 16:42> (2) Hypertension: Qualifiers: Hypertension type: primary hypertension Qualified Code(s): I10 - Essential (primary) hypertension <Dina N. Ventimiglia, LAUNDRY MACHINE TENDER - Last Filed: 02/06/25 16:42> Code(s): I10 - Essential (primary) hypertension <Dina N. Ventimiglia, LAUNDRY MACHINE TENDER - Last Filed: 02/06/25 16:42> Status: Acute <Dina N. Ventimiglia, LAUNDRY MACHINE TENDER - Last Filed: 02/06/25 16:42> (3) Diabetes: Qualifiers: Chronic kidney disease stage: unspecified stage Diabetes mellitus complication detail: with chronic kidney disease Diabetes mellitus complication status: with kidney complications Diabetes mellitus skilled nursing insulin use: without termite treater use Diabetes mellitus type: type 2 Qualified Code(s): E11.22 - Type 2 diabetes mellitus with diabetic chronic kidney disease <Dina N. Tamimiglia, LAUNDRY MACHINE TENDER - Last Filed: 02/06/25 16:42> Code(s): E11.9 - Type 2 diabetes mellitus without complications <Dina N. Ventimiglia, LAUNDRY MACHINE TENDER - Last Filed: 02/06/25 16:42> Status: Chronic <Dina N. Ventimiglia, LAUNDRY MACHINE TENDER - Last Filed: 02/06/25 16:42> (4) Acute kidney injury: Code(s): N17.9 - Acute kidney failure, unspecified <Dina N. Ventimiglia, LAUNDRY MACHINE TENDER - Last Filed: 02/06/25 16:42> Status: Acute <Dina N. Ventimiglia, LAUNDRY MACHINE TENDER - Last Filed: 02/06/25 16:42> Assessment and Plan: 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 EF of 30-35% per echo. Most likely secondary to uncontrolled HTN d/t medication non-compliance. Her CXR shows pleural effusions. Her pBNP is >[id number]. Agree with IV diuresis at this time, but urine output has been poor. Have discussed with renal and will begin lasix drip at 1mg. Will place fluid restriction. Will need accurate intake and output. Currently on coreg 3.125 mg BID and will uptitrate as tolerated. No ARB/ARNI or SGLT-2 at this time in setting of AGRRISON/CKD. Hypertension. Unontrolled on arrival to [place] with SBP >200. She has a known history of pre-eclampsia with both of her preganancies. She has been off all anti-hypertensive therapy for over 2 years. She has been started on coreg 3.125 mg BID. Has hydralazine IV prn. Will initiate GDMT for her CMP over hospital course pending renal function Cardiomyopathy. Unclear if ischemic vs non-ischemic, most likely however, secondary to uncontrolled HTN. Will need ischemic eval most likely with stress test on OP basis. Will consider lifevest prior to dc. Continue coreg 3.125 mg BID at this time GARRISON/CKD. With a creatnine of 10.26 on admission. She continues to make small amounts of urine. Will trial lasix drip overnight as discussed with renal. Patient however, may new hemodialysis for fluid removal Generalized anasarca. In setting of GARRISON/CKD, uncontrolled HTN and CHF. See above goal is volume management Diabetes. Poorly controlled. 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 <Dina Bush APRN - Last Filed: 02/06/25 16:42> History of Present Illness History of Present Illness Consult date/time: 02/06/25 16:23 <Dina Bush APRN - Last Filed: 02/06/25 16:42> Requesting physician: Bettye Alexis APRN <Dina Bush APRN - Last Filed: 02/06/25 16:42> Consult reason: congestive heart failure <Dina Bush APRN - Last Filed: 02/06/25 16:42> Reason For Visit: acute kidney failure <Dina Bush APRN - Last Filed: 02/06/25 16:42> Narrative: Sydni Padron is a 44 y.o. female with a PMH of HTN, diabetes mellitus, pre-eclampsia and CKD who presented to the hospital with reports of generalized body aches and shortness of breath. According to the patient she had been without medications for about 2 years. Then about a month ago she began noting that her LE were swollen. They continued to get increasingly more swollen and painful. She also, noted shortness of breath with activity and has been unable to lie flat. No chest pain or pressure. No dizziness of palpitations. We were consulted for acute CHF. <Dina Bush APRN - Last Filed: 02/06/25 16:42> Review of Systems Review of Systems: All systems reviewed & are unremarkable except as noted in HPI and below <Dina Bush APRN - Last Filed: 02/06/25 16:42> PMFSH Past Medical History Medical History: Medical History CKD (chronic kidney disease) Diabetic ketoacidosis Last occurrence in 2022 Diabetes type 2, uncontrolled Gestational diabetes <Dina Bush APRN - Last Filed: 02/06/25 16:42> Surgical History Surgical History: Surgical History History of left below knee amputation 09/16/2022- left below-knee amputation History of cholecystectomy History of complete ray amputation of first toe of right foot History of section <Dina Bush APRN - Last Filed: 02/06/25 16:42> Family History Family History: Family History Father Diabetes mellitus Mother Kidney cancer, primary, with metastasis from kidney to other site Father Lung cancer Myocardial infarction Mother Myocardial infarction <Dina Bush APRN - Last Filed: 02/06/25 16:42> Social History Social History: Social History Social History: Surrogate medical decision maker: Shine Padron, spouse. Code status: Full code. Smoking packs per day: 0 Smoking cigarettes per day: 0.0 Years smoked: 0 Smoking pack-years: 0.00 Smoking status: Never smoker Second hand tobacco smoke exposure: No Alcohol intake: never Drinks per week: 0 Substance use: never Substance use type: does not use Lack of Transportation: No Lack of Food: Never True Current Housing: I Have Housing Concerned About Future Housing: No Difficulty Paying Gas/Electric Bills: No Difficulty Paying for Meds: No Currently Unemployed: No Education: Bachelor's Degree Difficulty w/ Childcare or Family Care: No Living arrangements: with family Additional living arrangements comments: Lives with spouse and children. Occupation/Education: occupation Gender identity (if verbalized by the patient): Female Sexual Orientation (if Verbalized by the Patient): Straight or Heterosexual Spiritual care concerns: No Agree to blood products: No <Dina Bush APRN - Last Filed: 02/06/25 16:42> Meds Home Medications and Allergies Home medications: Home Medications ?Medication ?Instructions ?Recorded ?Confirmed ?Type carvedilol 3.125 mg tablet (Coreg) 3.125 mg PO Q12HR #60 tabs 09/30/22 02/05/25 Rx cyclobenzaprine 10 mg tablet 5 mg (1/2 x 10 mg) PO Q8H PRN 09/30/22 02/05/25 Rx Muscle Spasm #30 tabs escitalopram oxalate 10 mg tablet 10 mg PO DAILY #30 tabs 09/30/22 02/05/25 Rx hydralazine 50 mg tablet 50 mg PO Q6HR #120 tabs 09/30/22 02/05/25 Rx insulin detemir U-100 100 unit/mL 20 unit (0.2 mL) subcut HS 30 days 09/30/22 02/05/25 Rx (3 mL) subcutaneous pen (Levemir #15 mL FlexPen) pantoprazole 40 mg tablet,delayed 40 mg PO Q12HR #60 tabs 09/30/22 02/05/25 Rx release <Dina Bush APRN - Last Filed: 02/06/25 16:42> Allergies/Adverse reactions: Allergies Allergy/AdvReac Type Severity Reaction Status Date / Time Penicillins Allergy Intermediate Rash Verified 02/05/25 21:05 adhesive tape Allergy Mild skin Verified 02/05/25 21:32 tears, erythema, itching <Dina Bush LAUNDRY MACHINE TENDER - Last Filed: 02/06/25 16:42> Vital Signs Vital Signs - 24 hr 02/05/25 19:46 02/05/25 20:00 02/05/25 20:00 Temperature 36.6 C Pulse Rate 85 83 Respiratory Rate 20 Blood Pressure 179/79 H Pulse Oximetry 99 Oxygen Delivery Room Air 02/05/25 22:00 02/05/25 22:31 02/06/25 00:00 Temperature Pulse Rate 81 82 Respiratory Rate Blood Pressure Pulse Oximetry Oxygen Delivery Room Air 02/06/25 00:00 02/06/25 00:00 02/06/25 02:00 Temperature 36.7 C Pulse Rate 78 76 75 Respiratory Rate 14 Blood Pressure 151/80 H Pulse Oximetry 97 Oxygen Delivery 02/06/25 04:00 02/06/25 04:00 02/06/25 04:00 Temperature 36.4 C L Pulse Rate 72 72 Respiratory Rate 14 Blood Pressure 148/74 H Pulse Oximetry 97 Oxygen Delivery Room Air 02/06/25 06:00 02/06/25 07:58 02/06/25 08:00 Temperature 36.4 C Pulse Rate 73 74 75 Respiratory Rate 20 Blood Pressure 150/75 H Pulse Oximetry 98 Oxygen Delivery 02/06/25 09:42 02/06/25 10:00 02/06/25 11:49 Temperature 36.8 C Pulse Rate 75 74 74 Respiratory Rate 18 Blood Pressure 142/77 H Pulse Oximetry 96 Oxygen Delivery <Dina Bush LAUNDRY MACHINE TENDER - Last Filed: 02/06/25 16:42> Exam Const: General: uncomfortable <Dina Bush LAUNDRY MACHINE TENDER - Last Filed: 02/06/25 16:42> Neck: Neck: supple and no JVD <Dina Bush LAUNDRY MACHINE TENDER - Last Filed: 02/06/25 16:42> Carotids: bruit <Dina Bush LAUNDRY MACHINE TENDER - Last Filed: 02/06/25 16:42> Resp: Effort & Inspection: normal respiratory effort <Dina NicoleDewayne Robertoliva LAUNDRY MACHINE TENDER - Last Filed: 02/06/25 16:42> Auscultation: diminished lung sounds <Dina NicoleDewayne Robertoliva, LAUNDRY MACHINE TENDER - Last Filed: 02/06/25 16:42> Cardio: Rate: regular rate <Dina NicoleDewayne Bush LAUNDRY MACHINE TENDER - Last Filed: 02/06/25 16:42> Rhythm: regular rhythm <Dina Guido Robertoliva, LAUNDRY MACHINE TENDER - Last Filed: 02/06/25 16:42> Heart sounds: no gallops, no murmurs and no rubs <Dina Guido Bush, LAUNDRY MACHINE TENDER - Last Filed: 02/06/25 16:42> GI: Auscultation: normal bowel sounds <Dina Guido Bush LAUNDRY MACHINE TENDER - Last Filed: 02/06/25 16:42> Skin: General skin exam: rashes and/or lesions noted <Dina Guido Bush LAUNDRY MACHINE TENDER - Last Filed: 02/06/25 16:42> Extrem: General: edema <Dina Guido Bush LAUNDRY MACHINE TENDER - Last Filed: 02/06/25 16:42> Other: anasarca Lt BKA <Dina Guido Bush, LAUNDRY MACHINE TENDER - Last Filed: 02/06/25 16:42> Psych: Mental Status: mental status grossly normal <Dina Guido Bush LAUNDRY MACHINE TENDER - Last Filed: 02/06/25 16:42> Affect: normal affect <Dina Guido Bush LAUNDRY MACHINE TENDER - Last Filed: 02/06/25 16:42> Results Labs and Meds Result diagrams: 02/06/25 04:15 02/06/25 04:15 <Dina Guido Bush, LAUNDRY MACHINE TENDER - Last Filed: 02/06/25 16:42> Lab results: Cardiac Enzymes 02/06/25 Range/Units 04:15 AST 56 H (14-36) U/L CBC 02/06/25 Range/Units 04:15 WBC 5.8 (4.5-10.0) K/mm3 RBC 4.02 L (4.2-5.4) M/mm3 Hgb 9.4 L (12.0-15.0) g/dL Hct 30.5 L (37.0-47.0) % Plt Count 445 H (150-375) k/mm3 Lymph # (Auto) 1.12 (0.9-3.2) K/mm3 [place] # (Auto) 0.7 H (0.1-0.6) K/mm3 Eos # (Auto) 0.2 (0-0.3) K/mm3 Baso # (Auto) 0.1 (0.0-0.1) K/mm3 Comprehensive Metabolic Panel 02/06/25 Range/Units 04:15 Sodium 132 L (137-145) mmol/L Potassium 4.7 (3.4-5.0) mmol/L Chloride 107 (98-107) mmol/L Carbon Dioxide 8 L (22-30) mmol/L BUN 76 H (7-17) mg/dL Creatinine 9.18 H (0.7-1.0) mg/dL Glucose 102 (65-110) mg/dL Calcium 6.7 L (8.4-10.2) mg/dL AST 56 H (14-36) U/L ALT 35 (6-35) U/L Alkaline Phosphatase 158 H (38-126) U/L Total Protein 6.0 L (6.3-8.2) g/dL Albumin 2.9 L (3.5-5.1) g/dL Intake and Output 02/06/25 02/06/25 02/06/25 07:59 15:59 23:59 Intake Total 610 240 Output Total 300 Balance 310 240 Intake: Oral 610 240 Output: Catheter Urine 300 Urethral Catheter 300 Patient Weight 02/06/25 23:59 Weight 118.1 kg <Dina Bush APRN - Last Filed: 02/06/25 16:42> Imaging and Cardiology Echo: report reviewed (EF of 30-35% with mod MR, TR and mod pulm hypertension ) <Dina Bush APRN - Last Filed: 02/06/25 16:42> EKG results: report reviewed <Dina Bush APRN - Last Filed: 02/06/25 16:42> EKG Interpretation EKG: sinus rhythm, normal ST/T and no acute changes <Dina NicoleDewayne Bush APRN - Last Filed: 02/06/25 16:42> EKG shows: sinus rhythm <Dina NicoleDewayne GarrettmindyWOODROW baptiste - Last Filed: 02/06/25 16:42> Attestation Supervising Provider Attestation Attending attestation: 50 minutes of combined a PPD and physician services provided. Independently, 35 minutes of examining, discussion, calling other healthcare providers and formally an assessment and plan were spent Agree with elements of history and physical above Patient is a 44-year-old female who came to hospital because of progressive worsening should lower extremity edema as well shortness of breath. She has anasarca, renal failure and echocardiogram shows poor ejection fraction. Is personally reviewed and independently interpreted showing ejection fraction 30-35%. She has been given some diuretics but is not putting out much output. She has seen Nephrology. She does have history of hypertension was preeclamptic. Due to healthcare fear she has not routinely seen physicians and she has not taken medications in years. She describes shortness of breath, paroxysmal nocturnal dyspnea, orthopnea and severe edema.. Objective: Blood pressure 179/79 HEENT: Normocephalic atraumatic, eyes: Anicteric Appears stated age Poor dentition. Lungs show crackles at the bases. She is severely edematous everywhere even into her back. Cardiac exam shows distant heart tones normal S1-S2. Abdomen is soft protuberant. Positive bowel sounds. Abdominal wall swelling noted. Extremities marked edema. Skin: Tight and tender. Neuro: Normal sensory and motor exam. Psych: Anxious Assessment and plan 1. Acute systolic heart failure: Likely from burnout hypertension. Will start a Lasix drip and after talking to Dr. Villatoro go but she likely is going to proceed need dialysis. Regarding her heart failure, will hold off on spironolactone, Entresto given renal failure. Will initiate carvedilol 3.125 mg p.o. b.i.d. and up titrate as able. Eventually she will need ischemic workup. 2. Cardiomyopathy: Likely from longstanding hypertension 3. Hypertension: While the uncontrolled 4. Acute on chronic kidney disease: Followed by Nephrology 5. Diabetes: Per hospitalist Nolan Johnson MD [facility] <Nolan Johnson MD - Last Filed: 02/06/25 17:22>
--- NOTE | 2025-02-06 16:34 | PC.NURSE ---
Construction Craft Laborer at bedside, called the product safety engineer as he is concerned about the patient's fluid overload. Patient has new orders to stay in the IMU at this time. Aysha the hospitalist was informed of the new orders put in by cardiology and informed that the patient will be staying in the IMU with new orders. Verbalized understanding at this time.
[2025-02-06] MEDS: FUROSEMIDE INJ 100 MG in SODIUM CHLORIDE 0.9% IV 90 ML 59.05 MG IV CONT (17:31)
[2025-02-06] MEDS: FUROSEMIDE INJ 100 MG in SODIUM CHLORIDE 0.9% IV 90 ML 59 MG IV CONT ×4 (18:12→23:10)
[2025-02-06] MEDS: IRON SUCROSE COMPLEX 400 MG, IRON SUCROSE COMPLEX 100 MG in SODIUM CHLORIDE 0.9% IV 250 ML 78.57 MG IVPB (21:14)
[2025-02-07] VITALS (16 sets, daily range): BP systolic 130–154; BP diastolic 73–78; PULSE 69–79; RESP 16–24; TEMP 36.3–36.8; O2SAT 95–99
[2025-02-07] MEDS: diphenhydrAMINE HCl CAP 25 MG CAPSULE (01:11)
[2025-02-07] MEDS: diphenhydrAMINE HCl CAP 25 MG CAPSULE PO (01:19)
[2025-02-07] MEDS: FUROSEMIDE INJ 100 MG in SODIUM CHLORIDE 0.9% IV 90 ML 59 MG IV CONT (01:21)
[2025-02-07 01:22] LABS: Hematocrit 30.6 % (37.0-47.0); Hemoglobin 9.3 g/dL (12.0-15.0); Immature Granulocyte Percent A 0.3 % (0-0.5); Lymphocytes Absolute Auto 0.96 K/mm3 (0.9-3.2); Mean Corpuscular HGB Conc 30.4 g/dl (32-36); Mean Corpuscular Hemoglobin 23.3 pg (26-34); Mean Corpuscular Volume 76.7 fl (80-100); Nucleated Red Blood Cells Absolute Auto 0.020 K/mm3 (0.0-0.012); Nucleated Red Blood Cells Perc 0.3 % (0.0-0.2); Platelet Count Result 448 k/mm3 (150-375); Red Blood Count 3.99 M/mm3 (4.2-5.4); White Blood Count 6.2 K/mm3 (4.5-10.0)
[2025-02-07 01:34] LABS: Alanine Aminotransferase 32 U/L (6-35); Albumin Level 2.9 g/dL (3.5-5.1); Alkaline Phosphatase 138 U/L (38-126); Anion Gap 19 mmol/L (4-12); Aspartate Amino Transferase 32 U/L (14-36); Bilirubin,Total 0.5 mg/dL (0.2-1.3); Blood Urea Nitrogen 76 mg/dL (7-17); Calcium 6.4 mg/dL (8.4-10.2); Carbon Dioxide 8 mmol/L (22-30); Chloride 106 mmol/L (98-107); Estimated CRCL calculation 9 ml/min; Estimated Glomerular Filt Rate 5; Glucose 137 mg/dL (65-110); Potassium 4.5 mmol/L (3.4-5.0); Sodium 133 mmol/L (137-145); Total Protein 6.1 g/dL (6.3-8.2)
[2025-02-07 02:28] LABS: Iron 619 ug/dL (37-170); Percent Iron Saturation 165 % (20-50)
[2025-02-07] MEDS: BUMETANIDE INJ 1 MG/4 ML VIAL 2 MG IV PUSH ×4 (02:57→16:55)
[2025-02-07 05:26] LABS: INR 1.2; Prothrombin Time 15.3 Seconds (11.1-14.7)
[2025-02-07 05:41] LABS: Albumin Level 3.0 g/dL (3.5-5.1); Anion Gap 15 mmol/L (4-12); Blood Urea Nitrogen 75 mg/dL (7-17); CRP 3.5 mg/dL (<1.0); Calcium 6.3 mg/dL (8.4-10.2); Carbon Dioxide 11 mmol/L (22-30); Chloride 106 mmol/L (98-107); Estimated CRCL calculation 10 ml/min; Estimated Glomerular Filt Rate 5; Glucose 117 mg/dL (65-110); Magnesium 2.2 mg/dL (1.6-2.3); Potassium 4.4 mmol/L (3.4-5.0); Sodium 132 mmol/L (137-145)
[2025-02-07 06:10] LABS: Hepatitis B Surface Antigen Negative (Negative)
--- NOTE | 2025-02-07 07:44 | P.PNIM_ITS ---
Progress Note: A&P Assessment and Plan (1) CHF (congestive heart failure): Qualifiers: Heart failure chronicity: acute Heart failure type: unspecified Qualified Code(s): I50.9 - Heart failure, unspecified Code(s): I50.9 - Heart failure, unspecified Status: Acute Assessment and Plan: Patient originally presented for primary complaint of shortness of breath and right lower extremity swelling (history of left BKA).? CXR showed mild CHF.? BNP greater than 30,000. Given new onset renal failure, may be hypervolemia due to acute renal failure/ESRD verses new onset CHF or combination thereof. - BNP greater than 30,000 upon admission on 02/05 - reviewed chart, no previous echo on file - start Bumex 2 mg b.i.d. IV - monitor I&Os and daily weights - trend renal function - TSH elevated, checking T3/ T4 02/06: - T3 / T4 WDL, pt does not remember when she took Synthroid last - Pt denies SOB and CP. RLE 3+ pitting edema - amber hose ordered today - Pending ECHO --> Left ventricular systolic function is severely reduced, estimated at 30-35. 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 EF of 30-35% per echo. Most likely secondary to uncontrolled HTN d/t medication non-compliance. Her CXR shows pleural effusions. Her pBNP is >21615. Agree with IV diuresis at this time, but urine output has been poor. Have discussed with renal and will begin lasix drip at 1mg. Will place fluid restriction. Will need accurate intake and output. Currently on coreg 3.125 mg BID and will uptitrate as tolerated. No ARB/ARNI or SGLT-2 at this time in setting of GARRISON/CKD. -->Will continue with tx, appreciate cards consult -Lasix gtt has since been discontinued. Increase bumex administration to 2mg IV BID. Pt continues to deny SOB and CP, she reports that she feels a lot more swollen. (2) Diabetes: Qualifiers: Chronic kidney disease stage: unspecified stage Diabetes mellitus complication detail: with chronic kidney disease Diabetes mellitus complication status: with kidney complications Diabetes mellitus fdc insulin use: without fdc use Diabetes mellitus type: type 2 Qualified Code(s): E11.22 - Type 2 diabetes mellitus with diabetic chronic kidney disease Code(s): E11.9 - Type 2 diabetes mellitus without complications Status: Chronic Assessment and Plan: Patient has a history of type 2 diabetes.? However she has been off of her medications for the past 2 years since 2022.? She has not followed with any providers since 2022.? Diabetes complicated by previous diabetic foot infection requiring a left BKA in 2022. - hypoglycemia protocol - POC blood glucose ACHS - correct regimen ordered - high dose TIDWM and HS - A1C 8.6% on 02/05/2025 - senior health educator consulted - dietitian consulted 02/06: Blood sugars have been stable on current regimen 02/07: Blood sugars have been stable on current regimen (3) Elevated TSH: Code(s): R79.89 - Other specified abnormal findings of blood chemistry Status: Acute Assessment and Plan: TSH 6.320 on 02/05.? Previously within normal limits in August of 2022.? Will check T3/T4. 02/06: T3/T4 WDL, pt has not been taking Synthroid, she cannot remember when she took it last. 02/07: Continue taking Synthroid (4) Hypertension: Qualifiers: Hypertension type: primary hypertension Qualified Code(s): I10 - Essential (primary) hypertension Code(s): I10 - Essential (primary) hypertension Status: Acute Assessment and Plan: - chronic, untreated for the past 2 years. Arrived significantly hypertensive to [facility], BP 218/115. Currently 179/79. - start Coreg 3.125 mg b.i.d., patient was previously on same medication as well as hydralazine 50 mg q.6. Will hold off on starting hydralazine PO as we are trialing Bumex IV. hydralazine p.r.n. for BP greater than 180/90 - monitor 02/06: - potentially re-start PO hydral pending BPs 02/07: -Continue to hold hydral due to starting lasix gtt, and now TID bumex. Current BP stable, continue to monitor. (5) Anemia: Qualifiers: Anemia type: due to chronic kidney disease Chronic kidney disease stage: unspecified stage Qualified Code(s): N18.9 - Chronic kidney disease, unspecified; D63.1 - Anemia in chronic kidney disease Code(s): D64.9 - Anemia, unspecified Status: Acute Assessment and Plan: Patient has history of anemia, likely secondary to CKD. Hemoglobin 10.6 upon admission. Previously 7.2 upon discharge on 09/27/2022. - check iron, TIBC, ferritin, B12, folic acid, and TSH - transfuse if <7 02/06: -Continue with daily CBC -Iron % sat 7L, will give Venofer and start on orals upon discharge -Recheck iron % tomorrow 02/07: -Iron % exceedingly high due to recent venofer admin -Continue to check daily CBC -Likely d/c with oral iron (6) Acute kidney injury: Code(s): N17.9 - Acute kidney failure, unspecified Status: Acute Assessment and Plan: Neph following, daily labs Renal US: IMPRESSION: Right kidney is unremarkable. Left kidney is not visualized. 02/07: Plan for HD catheter placement tomorrow, NPO at midnight. Plan Patient has history of frequently infiltrating peripheral IVs and difficult stick. Requesting PICC line be placed if she is going to have a prolonged hospital stay. HD catheter placement tomorrow Diet: Renal GI Prophylaxis: N/a DVT Prophylaxis: SCDs IV fluids: Not indicated as of now Lines/Tubes: Peripheral IV Code Status: Full code Time Spent With Patient Time: 35 Subjective Date/time seen: 02/07/25 1020 Interval history: Pt continues to deny SOB and CP. She is aware of the plans of HD catheter insertion and continuation of diuresis. Pt sister at the bedside today. No other complaints. Review of Systems Review of Systems: All systems reviewed & are unremarkable except as noted in HPI and below Exam Const: General: no acute distress and uncomfortable Other: , female, nontoxic appearance HENMT: Face/Nose/Sinus: Normal nares present Mouth: Yes moist mucous membranes Eyes: General: appearance normal, both eyes and all related structures Sclera: sclerae normal Pupils: Equal, round and reactive pupils present EOM: EOMs intact bilaterally Resp: Effort & Inspection: normal respiratory effort Other: Bilateral lower lungs diminished lung sounds Cardio: Rate: regular rate Rhythm: regular rhythm Other: S1-S2 present without murmur, rub, ectopy GI: Other: Abdomen soft, nondistended, nontender. Normoactive bowel sounds in all quadrants. Skin: General skin exam: normal color and no rashes or lesions noted Other: Small scattered small areas of eschar less than 1 cm to bilateral shoulders, upper extremities, and forehead with no signs of infection. RLE: Normal inspection Neuro: Cranial nerves: Yes Equal, round and reactive pupils present Speech: normal speech Sensory Exam: normal sensation Other: A&O x4, generalized weakness Extrem: Other: Left BKA. RLE 2+ extending to the pannus. Thighs symmetric. RUE 1+ pitting edema Psych: Mental Status: mental status grossly normal Affect: normal affect Other: Good insight and judgment, very pleasant Objective Data Vital Signs Vital Signs: Vital Signs - 24 hr 02/06/25 07:58 02/06/25 08:00 02/06/25 09:42 Temperature 97.6 F Pulse Rate 74 75 75 Respiratory Rate 20 Blood Pressure 150/75 H Pulse Oximetry 98 Oxygen Delivery 02/06/25 10:00 02/06/25 11:49 02/06/25 12:00 Temperature 98.2 F Pulse Rate 74 74 73 Respiratory Rate 18 Blood Pressure 142/77 H Pulse Oximetry 96 Oxygen Delivery 02/06/25 16:00 02/06/25 17:31 02/06/25 18:00 Temperature 97.6 F Pulse Rate 73 72 Respiratory Rate 16 Blood Pressure 143/75 H 135/73 Pulse Oximetry 97 Oxygen Delivery 02/06/25 18:12 02/06/25 19:41 02/06/25 19:43 Temperature 97.7 F Pulse Rate 73 Respiratory Rate 18 Blood Pressure 135/73 138/69 138/69 Pulse Oximetry 98 Oxygen Delivery 02/06/25 19:43 02/06/25 20:00 02/06/25 20:00 Temperature Pulse Rate 73 Respiratory Rate Blood Pressure 138/69 Pulse Oximetry Oxygen Delivery Room Air 02/06/25 21:14 02/06/25 21:23 02/06/25 21:23 Temperature Pulse Rate 74 Respiratory Rate Blood Pressure 148/73 H 148/73 H Pulse Oximetry Oxygen Delivery 02/06/25 22:00 02/06/25 23:05 02/06/25 23:10 Temperature Pulse Rate 74 Respiratory Rate Blood Pressure 145/83 H 145/83 H Pulse Oximetry Oxygen Delivery 02/06/25 23:13 02/06/25 23:51 02/07/25 00:00 Temperature 97.7 F Pulse Rate 74 74 Respiratory Rate 20 Blood Pressure 145/83 H Pulse Oximetry 98 Oxygen Delivery Room Air 02/07/25 00:52 02/07/25 01:21 02/07/25 02:00 Temperature Pulse Rate 71 Respiratory Rate Blood Pressure 132/73 132/73 Pulse Oximetry Oxygen Delivery 02/07/25 03:48 02/07/25 04:00 02/07/25 04:00 Temperature 97.8 F Pulse Rate 69 76 Respiratory Rate 16 Blood Pressure 130/76 Pulse Oximetry 97 Oxygen Delivery Room Air 02/07/25 06:00 Temperature Pulse Rate 71 Respiratory Rate Blood Pressure Pulse Oximetry Oxygen Delivery Intake/Output Intake/Output: Intake & Output 02/04/25 02/05/25 02/06/25 02/07/25 23:59 23:59 23:59 23:59 Intake Total 1807.8 500 Output Total 540 400 Balance 1267.8 100 Meds/Results Medications: Active Medications Generic Name Dose Route Start Last Admin Trade Name Freq PRN Reason Stop Dose Admin Acetaminophen 650 mg 02/05/25 20:41 Acetaminophen 325 Mg Tablet PO Q4H PRN Mild Pain (1-3) or Fever Bumetanide 2 mg 02/07/25 02:25 02/07/25 02:57 Bumetanide Inj 1 Mg/4 Ml Vial IV PUSH 2 mg BID MARGUERITE Administration Carvedilol 3.125 mg 02/05/25 21:00 02/06/25 21:14 Carvedilol 3.125 Mg Tablet PO 3.125 mg Q12HR MARGUERITE Administration Dextrose 12.5 gm 02/05/25 21:36 Dextrose 50% 25 Gm/50 Ml Syringe IV PUSH PRN PRN Hypoglycemia Protocol Glucagon 1 mg 02/05/25 21:36 Glucagon For Inj 1 Mg Vial IM PRN PRN Hypoglycemia Protocol Glucose 15 gm 02/05/25 21:36 Glucose Oral Gel 15 Gm Of Glucse In 37.5 Gm Tube PO PRN PRN Hypoglycemia Protocol Hydralazine HCl 10 mg 02/05/25 20:41 Hydralazine Hcl 20 Mg/Ml Vial IV PUSH Q4H PRN Blood Pressure - High, >180/90 Dextrose 1,000 mls @ 100 mls/hr 02/05/25 21:36 Dextrose 5% 1,000 Ml IVPB PRN PRN Hypoglycemia Protocol Sodium Bicarbonate 100 meq/ 1,100 mls @ 50 mls/hr 02/05/25 22:00 02/05/25 22:30 Sterile Water IV CONT 50 mls/hr On Hold: 02/06/25 07:08 .Q22H MARGUERITE Administration Insulin Aspart 4 - 8 units 02/06/25 08:00 02/06/25 17:05 Insulin Aspart (*Bkc) 100 Units/Ml SUB-Q Not Given TIDWM MARGUERITE Protocol Insulin Aspart 2 - 4 units 02/05/25 21:45 02/06/25 21:05 Insulin Aspart (*Bkc) 100 Units/Ml SUB-Q Not Given HS MARGUERITE Protocol Morphine Sulfate 2 mg 02/05/25 21:29 02/06/25 13:35 Morphine Sulfate (*Crx) 4 Mg/Ml Inj IV PUSH 2 mg Q4H PRN Administration Pain Rated 7-10 Ondansetron HCl 4 mg 02/05/25 20:41 Ondansetron Inj 4 Mg/2 Ml Vial IV PUSH Q6H PRN Nausea And Vomiting Sodium Bicarbonate 650 mg 02/06/25 09:00 02/06/25 18:03 Sodium Bicarbonate Tab 650 Mg Tablet PO 650 mg TID MARGUERITE Administration Radiology Results: ITS Impressions Chest X-Ray 02/06/25 08:38 IMPRESSION: 1. Persistent pleural effusions with bibasilar atelectasis. 2. No pulmonary edema. Renal Ultrasound 02/06/25 17:09 IMPRESSION: Right kidney is unremarkable. Left kidney is not visualized. Labs Labs: Laboratory Results - last 24 hr 02/06/25 02/06/25 02/06/25 11:41 16:29 20:13 WBC RBC Hgb Hct MCV MCH MCHC RDW Plt Count MPV Immature Gran % (Auto) Neut % (Auto) Lymph % (Auto) [place] % (Auto) Eos % (Auto) Baso % (Auto) Lymph # (Auto) [place] # (Auto) Eos # (Auto) Baso # (Auto) Abs Immat Gran (auto) Absolute Neuts (auto) Absolute Nucleated RBC Nucleated RBC % ESR PT INR Sodium Potassium Chloride Carbon Dioxide Anion Gap BUN Creatinine Estim Creat Clear Calc Estimated GFR Glucose POC Capillary Glucose 117 H 158 H 158 H Calcium Phosphorus Magnesium Iron TIBC % Saturation Total Bilirubin AST ALT Alkaline Phosphatase C-Reactive Protein Total Protein Albumin DIDIER Screen DIDIER Titer DIDIER Titer 2 DIDIER Titer 3 DIDIER Pattern DIDIER Pattern 2 DIDIER Pattern 3 DIDIER Comment Hep Bs Antigen Hep B Core Total Ab 02/07/25 02/07/25 02/07/25 01:04 05:05 05:06 WBC 6.2 RBC 3.99 L Hgb 9.3 L Hct 30.6 L MCV 76.7 L MCH 23.3 L MCHC 30.4 L RDW 20.7 H Plt Count 448 H MPV 10.1 Immature Gran % (Auto) 0.3 Neut % (Auto) 67.2 Lymph % (Auto) 15.5 L [place] % (Auto) 11.5 H Eos % (Auto) 4.7 H Baso % (Auto) 0.8 Lymph # (Auto) 0.96 [place] # (Auto) 0.7 H Eos # (Auto) 0.3 Baso # (Auto) 0.1 Abs Immat Gran (auto) 0.02 Absolute Neuts (auto) 4.2 Absolute Nucleated RBC 0.020 H Nucleated RBC % 0.3 H ESR 28 H PT 15.3 H INR 1.2 Sodium 133 L 132 L Potassium 4.5 4.4 Chloride 106 106 Carbon Dioxide 8 L 11 L Anion Gap 19 H 15 H BUN 76 H 75 H Creatinine 9.44 H 9.45 H Estim Creat Clear Calc 9 10 Estimated GFR 5 L 5 L Glucose 137 H 117 H POC Capillary Glucose Calcium 6.4 L 6.3 L Phosphorus 8.6 H Magnesium 2.2 Iron 619 H TIBC 376 % Saturation 165 H Total Bilirubin 0.5 AST 32 ALT 32 Alkaline Phosphatase 138 H C-Reactive Protein 3.5 H Total Protein 6.1 L Albumin 2.9 L 3.0 L DIDIER Screen Cancelled DIDIER Titer Cancelled DIDIER Titer 2 Cancelled DIDIER Titer 3 Cancelled DIDIER Pattern Cancelled DIDIER Pattern 2 Cancelled DIDIER Pattern 3 Cancelled DIDIER Comment Cancelled Hep Bs Antigen Negative Hep B Core Total Ab Cancelled 02/07/25 07:38 WBC RBC Hgb Hct MCV MCH MCHC RDW Plt Count MPV Immature Gran % (Auto) Neut % (Auto) Lymph % (Auto) [place] % (Auto) Eos % (Auto) Baso % (Auto) Lymph # (Auto) [place] # (Auto) Eos # (Auto) Baso # (Auto) Abs Immat Gran (auto) Absolute Neuts (auto) Absolute Nucleated RBC Nucleated RBC % ESR PT INR Sodium Potassium Chloride Carbon Dioxide Anion Gap BUN Creatinine Estim Creat Clear Calc Estimated GFR Glucose POC Capillary Glucose 104 Calcium Phosphorus Magnesium Iron TIBC % Saturation Total Bilirubin AST ALT Alkaline Phosphatase C-Reactive Protein Total Protein Albumin DIDIER Screen DIDIER Titer DIDIER Titer 2 DIDIER Titer 3 DIDIER Pattern DIDIER Pattern 2 DIDIER Pattern 3 DIDIER Comment Hep Bs Antigen Hep B Core Total Ab Quality VTE Prophylaxis VTE prophylaxis: mechanical ordered
[2025-02-07 08:06] LABS: HBSAB RETEST 1 10.20 S/C
[2025-02-07 08:07] LABS: HBSAB RETEST 2 9.90 S/C; Hepatitis B Surface Anti Res Indeterminate
[2025-02-07] MEDS: SODIUM BICARBONATE TAB 650 MG TABLET PO ×3 (08:54→16:55)
--- NOTE | 2025-02-07 10:14 | PM.CNGS ---
Assessment and Plan Assessment and plan (1) Acute kidney injury: Code(s): N17.9 - Acute kidney failure, unspecified Status: Acute Assessment and Plan: Patient presented to the hospital 2 days ago with shortness of breath. She was found to be in acute renal failure. Creatinine 10.26 and BUN 76. Patient edematous to upper and lower extremities. Oral and IV diuresis attempted, with not much success. Nephrology requesting placement of tunneled hemodialysis catheter. Will add patient on to surgery schedule for tomorrow. Okay to have diet today, but will be NPO at midnight. (2) Stage 3b chronic kidney disease: Code(s): N18.32 - Chronic kidney disease, stage 3b Status: Chronic (3) Hypertension: Qualifiers: Hypertension type: primary hypertension Qualified Code(s): I10 - Essential (primary) hypertension Code(s): I10 - Essential (primary) hypertension Status: Acute Assessment and Plan: Manage per cardiology. Continue co regular 3.125 mg b.i.d. Recommending outpatient stress test when discharged. Also recommending life this prior to discharge. (4) CHF (congestive heart failure): Qualifiers: Heart failure type: unspecified Heart failure chronicity: acute Qualified Code(s): I50.9 - Heart failure, unspecified Code(s): I50.9 - Heart failure, unspecified Status: Acute Assessment and Plan: BNP greater than 30,000. Manage per cardiology recommendations. (5) Cardiomyopathy: Code(s): I42.9 - Cardiomyopathy, unspecified Status: Acute (6) Diabetes: Qualifiers: Diabetes mellitus type: type 2 Diabetes mellitus snf insulin use: without snf use Diabetes mellitus complication status: with kidney complications Diabetes mellitus complication detail: with chronic kidney disease Chronic kidney disease stage: unspecified stage Qualified Code(s): E11.22 - Type 2 diabetes mellitus with diabetic chronic kidney disease Code(s): E11.9 - Type 2 diabetes mellitus without complications Status: Chronic Plan Discussed patient's case and plan of care with Dr. Juan. History of Present Illness Consult details Consult date: 02/07/25 Reason for consult: other (tunneled HD catheter for dialysis) Requesting physician: Della Villatoro MD Narrative: Patient is a 44-year-old female with history of uncontrolled type 2 diabetes mellitus (S/p left BKA and right 1st toe amputation), and hypertension who we have been asked to see in surgical consultation for placement of a tunneled hemodialysis catheter. Patient 1st presented to [facility] on 02/05/[facility]25 with complaints of shortness of breath. She was not compliant with taking her diabetes medication. BP with systolic readings greater than 200. Patient was found to be in renal failure with unknown 5.2 she he she severe the. She was transferred to [facility]. Creatinine upon admission was 10.26, now at 9.45. BUN 75. Nephrology on board. IV diuretics were trialed, but she still did not have much urine output. Cardiology also on board as patient was found to be in acute decompensated confined systolic and diastolic heart failure. EF of 30-35% per echo. Most likely secondary to uncontrolled hypertension due to medication noncompliance. Chest x-ray showing pleural effusions. pBNP >63244. Cards recommending stress test on outpatient basis and life vest prior to d/c. Patient currently on Bumex, metolazone, bicarbonate. Also was on a furosemide drip that has since been discontinued. General surgery team consulted by nephrology for placement of tunneled hemodialysis catheter. Upon exam today, patient appears to have upper and lower extremity edema. She denies any surgeries to her neck or chest. Denies history of dialysis in the past. [facility] Past Medical History Medical History CKD (chronic kidney disease) Diabetic ketoacidosis Last occurrence in 2022 Diabetes type 2, uncontrolled Gestational diabetes Surgical History Surgical History History of left below knee amputation 09/16/2022- left below-knee amputation History of cholecystectomy 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 Code status: Full code. Smoking packs per day: 0 Smoking cigarettes per day: 0.0 Years smoked: 0 Smoking pack-years: 0.00 Smoking status: Never smoker Second hand tobacco smoke exposure: No Alcohol intake: never Drinks per week: 0 Substance use: never Substance use type: does not use Lack of Transportation: No Lack of Food: Never True Current Housing: I Have Housing Concerned About Future Housing: No Difficulty Paying Gas/Electric Bills: No Difficulty Paying for Meds: No Currently Unemployed: No Education: Bachelor's Degree Difficulty w/ Childcare or Family Care: No Living arrangements: with family Additional living arrangements comments: Lives with spouse and children. Occupation/Education: occupation Gender identity (if verbalized by the patient): Female Sexual Orientation (if Verbalized by the Patient): Straight or Heterosexual Spiritual care concerns: No Agree to blood products: No Meds Home Medications and Allergies Home Medications ?Medication ?Instructions ?Recorded ?Confirmed ?Type carvedilol 3.125 mg tablet (Coreg) 3.125 mg PO Q12HR #60 tabs 09/30/22 02/05/25 Rx cyclobenzaprine 10 mg tablet 5 mg (1/2 x 10 mg) PO Q8H PRN 09/30/22 02/05/25 Rx Muscle Spasm #30 tabs escitalopram oxalate 10 mg tablet 10 mg PO DAILY #30 tabs 09/30/22 02/05/25 Rx hydralazine 50 mg tablet 50 mg PO Q6HR #120 tabs 09/30/22 02/05/25 Rx insulin detemir U-100 100 unit/mL 20 unit (0.2 mL) subcut HS 30 days 09/30/22 02/05/25 Rx (3 mL) subcutaneous pen (Levemir #15 mL FlexPen) pantoprazole 40 mg tablet,delayed 40 mg PO Q12HR #60 tabs 09/30/22 02/05/25 Rx release Allergies Allergy/AdvReac Type Severity Reaction Status Date / Time Penicillins Allergy Intermediate Rash Verified 02/05/25 21:05 adhesive tape Allergy Mild skin Verified 02/05/25 21:32 tears, erythema, itching Vital Signs Vital Signs - 24 hr 02/06/25 11:49 02/06/25 12:00 02/06/25 16:00 Temperature 98.2 F 97.6 F Pulse Rate 74 73 73 Respiratory Rate 18 16 Blood Pressure 142/77 H 143/75 H Pulse Oximetry 96 97 Oxygen Delivery 02/06/25 17:31 02/06/25 18:00 02/06/25 18:12 Temperature Pulse Rate 72 Respiratory Rate Blood Pressure 135/73 135/73 Pulse Oximetry Oxygen Delivery 02/06/25 19:41 02/06/25 19:43 02/06/25 19:43 Temperature 97.7 F Pulse Rate 73 Respiratory Rate 18 Blood Pressure 138/69 138/69 138/69 Pulse Oximetry 98 Oxygen Delivery 02/06/25 20:00 02/06/25 20:00 02/06/25 21:14 Temperature Pulse Rate 73 74 Respiratory Rate Blood Pressure Pulse Oximetry Oxygen Delivery Room Air 02/06/25 21:23 02/06/25 21:23 02/06/25 22:00 Temperature Pulse Rate 74 Respiratory Rate Blood Pressure 148/73 H 148/73 H Pulse Oximetry Oxygen Delivery 02/06/25 23:05 02/06/25 23:10 02/06/25 23:13 Temperature 97.7 F Pulse Rate 74 Respiratory Rate 20 Blood Pressure 145/83 H 145/83 H 145/83 H Pulse Oximetry 98 Oxygen Delivery 02/06/25 23:51 02/07/25 00:00 02/07/25 00:52 Temperature Pulse Rate 74 Respiratory Rate Blood Pressure 132/73 Pulse Oximetry Oxygen Delivery Room Air 02/07/25 01:21 02/07/25 02:00 02/07/25 03:48 Temperature Pulse Rate 71 Respiratory Rate Blood Pressure 132/73 Pulse Oximetry Oxygen Delivery Room Air 02/07/25 04:00 02/07/25 04:00 02/07/25 06:00 Temperature 97.8 F Pulse Rate 69 76 71 Respiratory Rate 16 Blood Pressure 130/76 Pulse Oximetry 97 Oxygen Delivery 02/07/25 08:00 02/07/25 08:00 02/07/25 08:54 Temperature 98.1 F Pulse Rate 73 73 74 Respiratory Rate 16 Blood Pressure 148/78 H Pulse Oximetry 97 Oxygen Delivery 02/07/25 10:00 Temperature Pulse Rate 72 Respiratory Rate Blood Pressure Pulse Oximetry Oxygen Delivery Exam Const: General: comfortable and no acute distress Eyes: General: appearance normal, both eyes and all related structures Neck: Neck: supple and no JVD Resp: Effort & Inspection: normal respiratory effort Cardio: Rate: regular rate Skin: General skin exam: normal color and no rashes or lesions noted Neuro: Speech: normal speech Extrem: Other: LLE BKA. R firsst toe amputation. Edema to both upper and lower distal extremities. Results Labs 02/07/25 01:04 02/07/25 05:05 Labs: Abnormal lab results 02/06/25 02/06/25 02/06/25 Range/Units 11:41 16:29 20:13 RBC (4.2-5.4) M/mm3 Hgb (12.0-15.0) g/dL Hct (37.0-47.0) % MCV (80-100) fl MCH (26-34) pg MCHC (32-36) g/dl RDW (11.5-14.5) % Plt Count (150-375) k/mm3 Lymph % (Auto) (18.3-44.2) % [place] % (Auto) (2.6-8.5) % Eos % (Auto) (0-4.4) % [place] # (Auto) (0.1-0.6) K/mm3 Absolute Nucleated RBC (0.0-0.012) K/mm3 Nucleated RBC % (0.0-0.2) % ESR (0-20) mm/hr PT (11.1-14.7) Seconds Sodium (137-145) mmol/L Carbon Dioxide (22-30) mmol/L Anion Gap (4-12) mmol/L BUN (7-17) mg/dL Creatinine (0.7-1.0) mg/dL Estimated GFR (59 - ) Glucose (65-110) mg/dL POC Capillary Glucose 117 H 158 H 158 H (65-105) mg/dl Calcium (8.4-10.2) mg/dL Phosphorus (2.5-4.5) mg/dL Iron (37-170) ug/dL % Saturation (20-50) % Alkaline Phosphatase (38-126) U/L C-Reactive Protein (<1.0) mg/dL Total Protein (6.3-8.2) g/dL Albumin (3.5-5.1) g/dL 02/07/25 02/07/25 02/07/25 Range/Units 01:04 05:05 05:06 RBC 3.99 L (4.2-5.4) M/mm3 Hgb 9.3 L (12.0-15.0) g/dL Hct 30.6 L (37.0-47.0) % MCV 76.7 L (80-100) fl MCH 23.3 L (26-34) pg MCHC 30.4 L (32-36) g/dl RDW 20.7 H (11.5-14.5) % Plt Count 448 H (150-375) k/mm3 Lymph % (Auto) 15.5 L (18.3-44.2) % [place] % (Auto) 11.5 H (2.6-8.5) % Eos % (Auto) 4.7 H (0-4.4) % [place] # (Auto) 0.7 H (0.1-0.6) K/mm3 Absolute Nucleated RBC 0.020 H (0.0-0.012) K/mm3 Nucleated RBC % 0.3 H (0.0-0.2) % ESR 28 H (0-20) mm/hr PT 15.3 H (11.1-14.7) Seconds Sodium 133 L 132 L (137-145) mmol/L Carbon Dioxide 8 L 11 L (22-30) mmol/L Anion Gap 19 H 15 H (4-12) mmol/L BUN 76 H 75 H (7-17) mg/dL Creatinine 9.44 H 9.45 H (0.7-1.0) mg/dL Estimated GFR 5 L 5 L (59 - ) Glucose 137 H 117 H (65-110) mg/dL POC Capillary Glucose (65-105) mg/dl Calcium 6.4 L 6.3 L (8.4-10.2) mg/dL Phosphorus 8.6 H (2.5-4.5) mg/dL Iron 619 H (37-170) ug/dL % Saturation 165 H (20-50) % Alkaline Phosphatase 138 H (38-126) U/L C-Reactive Protein 3.5 H (<1.0) mg/dL Total Protein 6.1 L (6.3-8.2) g/dL Albumin 2.9 L 3.0 L (3.5-5.1) g/dL Diabetes panel 02/07/25 02/07/25 Range/Units 01:04 05:05 Sodium 133 L 132 L (137-145) mmol/L Potassium 4.5 4.4 (3.4-5.0) mmol/L Chloride 106 106 (98-107) mmol/L Carbon Dioxide 8 L 11 L (22-30) mmol/L BUN 76 H 75 H (7-17) mg/dL Creatinine 9.44 H 9.45 H (0.7-1.0) mg/dL Glucose 137 H 117 H (65-110) mg/dL Calcium 6.4 L 6.3 L (8.4-10.2) mg/dL AST 32 (14-36) U/L ALT 32 (6-35) U/L Alkaline Phosphatase 138 H (38-126) U/L Total Protein 6.1 L (6.3-8.2) g/dL Albumin 2.9 L 3.0 L (3.5-5.1) g/dL Calcium panel 02/07/25 02/07/25 Range/Units 01:04 05:05 Calcium 6.4 L 6.3 L (8.4-10.2) mg/dL Phosphorus 8.6 H (2.5-4.5) mg/dL Albumin 2.9 L 3.0 L (3.5-5.1) g/dL Pituitary panel 02/07/25 02/07/25 Range/Units 01:04 05:05 Sodium 133 L 132 L (137-145) mmol/L Potassium 4.5 4.4 (3.4-5.0) mmol/L Chloride 106 106 (98-107) mmol/L Carbon Dioxide 8 L 11 L (22-30) mmol/L BUN 76 H 75 H (7-17) mg/dL Creatinine 9.44 H 9.45 H (0.7-1.0) mg/dL Glucose 137 H 117 H (65-110) mg/dL Calcium 6.4 L 6.3 L (8.4-10.2) mg/dL Adrenal panel 02/07/25 02/07/25 Range/Units 01:04 05:05 Sodium 133 L 132 L (137-145) mmol/L Potassium 4.5 4.4 (3.4-5.0) mmol/L Chloride 106 106 (98-107) mmol/L Carbon Dioxide 8 L 11 L (22-30) mmol/L BUN 76 H 75 H (7-17) mg/dL Creatinine 9.44 H 9.45 H (0.7-1.0) mg/dL Glucose 137 H 117 H (65-110) mg/dL Calcium 6.4 L 6.3 L (8.4-10.2) mg/dL Total Bilirubin 0.5 (0.2-1.3) mg/dL AST 32 (14-36) U/L ALT 32 (6-35) U/L Alkaline Phosphatase 138 H (38-126) U/L Total Protein 6.1 L (6.3-8.2) g/dL Albumin 2.9 L 3.0 L (3.5-5.1) g/dL All other labs normal.
--- NOTE | 2025-02-07 10:53 | P.PNNP_ITS ---
Progress Note: A&P Assessment and Plan (1) Acute kidney injury: Code(s): N17.9 - Acute kidney failure, unspecified Status: Acute Assessment and Plan: * no renal improvement at this time * as noted by admission labs (creatinine 10.26mg/dL) * unclear acuity versus chronicity of this issue (see #2) * complicated/associated with volume overload/anasarca and metabolic acidosis * evaluation to date noted: * urine electrolytes non-prerenal * UA with blood and protein * CPK mildly elevated but not enough to affect kidney function * renal ultrasound okay (unable to visualize left kidney) * nephrotic range proteinuria * serological evaluation pending * elevated CRP and ESR noted * no significant improvement with attempted lasix gtt * consider renal biopsy?? * follow trend of repeat labs and UOP * see discussion below* (2) Stage 3b chronic kidney disease: Code(s): N18.32 - Chronic kidney disease, stage 3b Status: Chronic Assessment and Plan: * creatinine down to 1.5mg/dL on September 2022 discharge * unclear if renal function recovered to normal (creatinine did go down as low as 0.7mg/dL during August/September 2022 hospitalization) * multiple risk factors for CKD: * hypertension * diabetes * vascular disease * recently discovered cardiomyopathy * other(?) (3) Volume overload: Code(s): E87.70 - Fluid overload, unspecified Status: Acute Assessment and Plan: * as noted by clinical exam (anasarca) * multifactorial etiology: * renal dysfunction * nephrotic range proteinuria/nephrotic syndrome * cardiomyopathy * vascular disease * no improvement with use of lasix gtt * transitioned back to scheduled IV diuretics * suspect will need HD/DUF to better optimize fluid status... (4) Metabolic acidosis: Code(s): E87.20 - Acidosis, unspecified Status: Acute Assessment and Plan: * quite severe on presentation (CO2 < 5) * presuably due to GARRISON/renal dysfunction * started on oral bicarbonate to compensate * hold of bicarb fluids due to #3 (5) Cardiomyopathy: Code(s): I42.9 - Cardiomyopathy, unspecified Status: Acute Assessment and Plan: * acute versus chronic? * ischemic versus non-ischemic? * Echo results noted (02/06): * left ventricular systolic function is severely reduced, estimated at 30 - 35% * left ventricular diastolic function is grade I diastolic dysfunction * mild to moderate mitral valve regurgitation * mild to moderate tricuspid valve regurgitation * moderate pulmonary hypertension, estimated pulmonary arterial systolic pressure is 47 mmHg * mild pulmonic regurgitation * Cardiology folowing * GMDT maybe somewhat limited by her severe renal dysfunction * candidate for inotropic therapy (although EF not that severe...) (6) Hypertension: Qualifiers: Hypertension type: primary hypertension Qualified Code(s): I10 - Essential (primary) hypertension Code(s): I10 - Essential (primary) hypertension Status: Acute Assessment and Plan: * quite elevated on ER presentation (systolic BP > 200) * better control at this time * follow trend of hemodynamics (7) Anemia: Qualifiers: Anemia type: due to chronic kidney disease Chronic kidney disease stage: unspecified stage Qualified Code(s): N18.9 - Chronic kidney disease, unspecified; D63.1 - Anemia in chronic kidney disease Code(s): D64.9 - Anemia, unspecified Status: Acute Assessment and Plan: * at least partly related to renal dysfunction * anemia studies demonstrate iron deficiency * getting IV iron * follow trend of H/H (8) Diabetes: Qualifiers: Chronic kidney disease stage: unspecified stage Diabetes mellitus complication detail: with chronic kidney disease Diabetes mellitus complication status: with kidney complications Diabetes mellitus penitentiary insulin use: w [facility] pen[facility]entiary use Diabetes mellitus type: type 2 Qualified Code(s): E11.22 - Type 2 diabetes mellitus with diabetic chronic kidney disease Code(s): E11.9 - Type 2 diabetes mellitus without complications Status: Chronic Assessment and Plan: * follow accu-cheks * glycemic control per hospitalist *Another long extensive discussion (> 20 minutes) with the patient ans well as with her sister at bedside regarding her severe renal dysfunction and worsening fluid/volume status. Her significant fluid overload/swelling/anasarca has not really improved with conservative therapy and may have actually worsened today; Furthermore, she still has a significant metabolic acidosis in association with mild anemia, mild hyponatremia, hypocalcemia, and hypoalbuminemia. I suppose we could re-attempt an IV loop diuretic drip or scheduled IVP diuretics but I suspect she may have a component of diuretic resistance. I discussed the issue of renal replacement therapy/dialysis/ultrafiltration one again as I am hoping this will at least do a better job of fluid removal than interventions to date. Her sister and the patient are wilingl to try [facility] [employer]/dialysis at this time. Will consult Surgery for dialysis catheter placement and proceed with dialysis/ultrafiltration. Will continue scheduled IV diuretics for now... Will continue to follow. L Subjective Date/time seen: 02/07/25 10:53 Interval history: Follow-up for acute kidney injury/acute renal failure on chronic kidney disease?) and anasarca. Swelling/edema seems to be worse and according to patient, is not starting to have weeping from her skin; lasix gtt attempted yesterday afternoon but discontined due to patient having a panic attack earlier this morning due worsening swelling/edema/weeping at that time; restarted on IV bumex with addition of metolazone in an attempt to continue diuresis; patient's sister at bedside and I discussed the situation with her as well as the patient. Exam 2 Narrative: General: quite anxious but WD/WN female in NAD Heart: normal S1 and S2; no rub Lungs: decreased at the bases Abdomen: obese but soft, nontender, nondistended, positive bowel sounds Extremities: no cyanosis or clubbing; 2 - 3+ edema in RLE and BUEs; s/p left BKA Skin: warm and dry Objective Data Vital Signs Vital Signs: Vital Signs Temp Pulse Resp BP Pulse Ox O2 Del Method 02/07/25 10:00 72 02/07/25 08:54 74 02/07/25 08:00 73 02/07/25 08:00 98.1 F 73 16 148/78 H 97 02/07/25 06:00 71 02/07/25 04:00 97.8 F 76 16 130/76 97 02/07/25 04:00 69 02/07/25 03:48 Room Air 02/07/25 02:00 71 02/07/25 01:21 132/73 02/07/25 00:52 132/73 02/07/25 00:00 74 02/06/25 23:51 Room Air 02/06/25 23:13 97.7 F 74 20 145/83 H 98 02/06/25 23:10 145/83 H 02/06/25 23:05 145/83 H 02/06/25 22:00 74 02/06/25 21:23 148/73 H 02/06/25 21:23 148/73 H 02/06/25 21:14 74 02/06/25 20:00 Room Air 02/06/25 20:00 73 02/06/25 19:43 138/69 02/06/25 19:43 138/69 02/06/25 19:41 97.7 F 73 18 138/69 98 02/06/25 18:12 135/73 02/06/25 18:00 72 02/06/25 17:31 135/73 02/06/25 16:00 97.6 F 73 16 143/75 H 97 Intake/Output Intake/Output: Intake & Output 02/04/25 02/05/25 02/06/25 02/07/25 23:59 23:59 23:59 23:59 Intake Total 1807.8 500 Output Total 540 400 Balance 1267.8 100 Meds/Results Medications: Active Medications Generic Name Dose Route Start Last Admin Trade Name Freq PRN Reason Stop Dose Admin Acetaminophen 650 mg 02/05/25 20:41 Acetaminophen 325 Mg Tablet PO Q4H PRN Mild Pain (1-3) or Fever Bumetanide 2 mg 02/07/25 09:00 02/07/25 12:33 Bumetanide Inj 1 Mg/4 Ml Vial IV PUSH 2 mg TID MARGUERITE Administration Carvedilol 3.125 mg 02/05/25 21:00 02/07/25 08:54 Carvedilol 3.125 Mg Tablet PO 3.125 mg Q12HR MARGUERITE Administration Dextrose 12.5 gm 02/05/25 21:36 Dextrose 50% 25 Gm/50 Ml Syringe IV PUSH PRN PRN Hypoglycemia Protocol Glucagon 1 mg 02/05/25 21:36 Glucagon For Inj 1 Mg Vial IM PRN PRN Hypoglycemia Protocol Glucose 15 gm 02/05/25 21:36 Glucose Oral Gel 15 Gm Of Glucse In 37.5 Gm Tube PO PRN PRN Hypoglycemia Protocol Hydralazine HCl 10 mg 02/05/25 20:41 Hydralazine Hcl 20 Mg/Ml Vial IV PUSH Q4H PRN Blood Pressure - High, >180/90 Dextrose 1,000 mls @ 100 mls/hr 02/05/25 21:36 Dextrose 5% 1,000 Ml IVPB PRN PRN Hypoglycemia Protocol Sodium Bicarbonate 100 meq/ 1,100 mls @ 50 mls/hr 02/05/25 22:00 02/05/25 22:30 Sterile Water IV CONT 50 mls/hr On Hold: 02/06/25 07:08 .Q22H MARGUERITE Administration Insulin Aspart 4 - 8 units 02/06/25 08:00 02/07/25 12:33 Insulin Aspart (*Bkc) 100 Units/Ml SUB-Q Not Given TIDWM [facility] Protocol Insulin Aspart 2 - 4 units 02/05/25 21:45 02/06/25 21:05 Insulin Aspart (*Bkc) 100 Units/Ml SUB-Q Not Given HS [facility] Protocol Metolazone 5 mg 02/07/25 09:00 02/07/25 08:56 Metolazone 5 Mg Tablet PO 5 mg QAM [facility] Administration Metolazone 5 mg 02/07/25 13:00 02/07/25 12:33 Metolazone 5 Mg Tablet PO 02/07/25 13:01 5 mg ONCE ONE Administration Morphine Sulfate 2 mg 02/05/25 21:29 02/06/25 13:35 Morphine Sulfate (*Crx) 4 Mg/Ml Inj IV PUSH 2 mg Q4H PRN Administration Pain Rated 7-10 Ondansetron HCl 4 mg 02/05/25 20:41 Ondansetron Inj 4 Mg/2 Ml Vial IV PUSH Q6H PRN Nausea And Vomiting Sodium Bicarbonate 650 mg 02/06/25 09:00 02/07/25 12:33 Sodium Bicarbonate Tab 650 Mg Tablet PO 650 mg TID MARGUERITE Administration Radiology Results: ITS Impressions Chest X-Ray 02/06/25 08:38 IMPRESSION: 1. Persistent pleural effusions with bibasilar atelectasis. 2. No pulmonary edema. Renal Ultrasound 02/06/25 17:09 IMPRESSION: Right kidney is unremarkable. Left kidney is not visualized. Labs Labs: Laboratory Tests 02/07/25 01:04 02/07/25 05:05 Calcium 6.3 L Phosphorus 8.6 H Magnesium 2.2 Albumin 3.0 L
[2025-02-08] VITALS (33 sets, daily range): BP systolic 148–200; BP diastolic 71–95; PULSE 69–86; RESP 11–20; TEMP 36.3–37.4; O2SAT 94–100
[2025-02-08 05:27] LABS: Hematocrit 30.7 % (37.0-47.0); Hemoglobin 9.4 g/dL (12.0-15.0); Immature Granulocyte Percent A 0.5 % (0-0.5); Lymphocytes Absolute Auto 1.25 K/mm3 (0.9-3.2); Mean Corpuscular HGB Conc 30.6 g/dl (32-36); Mean Corpuscular Hemoglobin 23.7 pg (26-34); Mean Corpuscular Volume 77.5 fl (80-100); Nucleated Red Blood Cells Absolute Auto 0.020 K/mm3 (0.0-0.012); Nucleated Red Blood Cells Perc 0.3 % (0.0-0.2); Platelet Count Result 455 k/mm3 (150-375); Red Blood Count 3.96 M/mm3 (4.2-5.4); White Blood Count 6.2 K/mm3 (4.5-10.0)
[2025-02-08 05:40] LABS: Alanine Aminotransferase 25 U/L (6-35); Albumin Level 2.9 g/dL (3.5-5.1); Alkaline Phosphatase 124 U/L (38-126); Anion Gap 18 mmol/L (4-12); Aspartate Amino Transferase 36 U/L (14-36); Bilirubin,Total 0.3 mg/dL (0.2-1.3); Blood Urea Nitrogen 78 mg/dL (7-17); Calcium 6.0 mg/dL (8.4-10.2); Carbon Dioxide 9 mmol/L (22-30); Chloride 107 mmol/L (98-107); Estimated CRCL calculation 9 ml/min; Estimated Glomerular Filt Rate 4; Glucose 90 mg/dL (65-110); Potassium 4.4 mmol/L (3.4-5.0); Sodium 134 mmol/L (137-145); Total Protein 6.0 g/dL (6.3-8.2)
[2025-02-08 06:08] LABS: Hep B Core Ab, Total Negative (Negative)
--- NOTE | 2025-02-08 08:32 | P.PNIM_ITS ---
Progress Note: A&P Assessment and Plan (1) CHF (congestive heart failure): Qualifiers: Heart failure chronicity: acute Heart failure type: unspecified Qualified Code(s): I50.9 - Heart failure, unspecified Code(s): I50.9 - Heart failure, unspecified Status: Acute Assessment and Plan: Patient originally presented for primary complaint of shortness of breath and right lower extremity swelling (history of left BKA).? CXR showed mild CHF.? BNP greater than 30,000. Given new onset renal failure, may be hypervolemia due to acute renal failure/ESRD verses new onset CHF or combination thereof. - BNP greater than 30,000 upon admission on 02/05 - reviewed chart, no previous echo on file - start Bumex 2 mg b.i.d. IV - monitor I&Os and daily weights - trend renal function - TSH elevated, checking T3/ T4 02/06: - T3 / T4 WDL, pt does not remember when she took Synthroid last - Pt denies SOB and CP. RLE 3+ pitting edema - amber hose ordered today - Pending ECHO --> Left ventricular systolic function is severely reduced, estimated at 30-35. 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 EF of 30-35% per echo. Most likely secondary to uncontrolled HTN d/t medication non-compliance. Her CXR shows pleural effusions. Her pBNP is >97644. Agree with IV diuresis at this time, but urine output has been poor. Have discussed with renal and will begin lasix drip at 1mg. Will place fluid restriction. Will need accurate intake and output. Currently on coreg 3.125 mg BID and will uptitrate as tolerated. No ARB/ARNI or SGLT-2 at this time in setting of GARRISON/CKD. -->Will continue with tx, appreciate cards consult -Lasix gtt has since been discontinued. Increase bumex administration to 2mg IV BID. Pt continues to deny SOB and CP, she reports that she feels a lot more swollen. 02/08: -Pt continues to deny SOB and CP but reports still being swollen in her RUE and RLE. Per cards today: 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 EF of 30-35% per echo. Most likely secondary to uncontrolled HTN d/t medication non-compliance. Her CXR shows pleural effusions. Her pBNP is >49098. Shifted from lasix drip to IV Bumex, now on dialysis. Currently on coreg 3.125 mg BID and will uptitrate as tolerated. No ARB/ARNI or SGLT-2 at this time in setting of GARRISON/CKD. 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 However she has been off of her medications for the past 2 years since 2022.? She has not followed with any providers since 2022.? Diabetes complicated by previous diabetic foot infection requiring a left BKA in 2022. - hypoglycemia protocol - POC blood glucose ACHS - correct regimen ordered - high dose TIDWM and HS - A1C 8.6% on 02/05/2025 - agricultural extension educator consulted - dietitian consulted 02/06: Blood sugars have been stable on current regimen 02/07: Blood sugars have been stable on current regimen 02/08: Blood sugar 90 this AM, pt had been NPO for procedure today (3) Elevated TSH: Code(s): R79.89 - Other specified abnormal findings of blood chemistry Status: Acute Assessment and Plan: TSH 6.320 on 02/05.? Previously within normal limits in August of 2022.? Will check T3/T4. 02/06: T3/T4 WDL, pt has not been taking Synthroid, she cannot remember when she took it last. 02/07: Continue taking Synthroid (4) Hypertension: Qualifiers: Hypertension type: primary hypertension Qualified Code(s): I10 - Essential (primary) hypertension Code(s): I10 - Essential (primary) hypertension Status: Acute Assessment and Plan: - chronic, untreated for the past 2 years. Arrived significantly hypertensive to [facility], BP 218/115. Currently 179/79. - start Coreg 3.125 mg b.i.d., patient was previously on same medication as well as hydralazine 50 mg q.6. Will hold off on starting hydralazine PO as we are trialing Bumex IV. hydralazine p.r.n. for BP greater than 180/90 - monitor 02/06: - potentially re-start PO hydral pending BPs 02/07: -Continue to hold hydral due to starting lasix gtt, and now TID bumex. Current BP stable, continue to monitor. 02/08: Starting pt back on her home dose hydral q6 today due to high pressures after getting back to her room, 180/90's. (5) Anemia: Qualifiers: Anemia type: due to chronic kidney disease Chronic kidney disease stage: unspecified stage Qualified Code(s): N18.9 - Chronic kidney disease, unspecified; D63.1 - Anemia in chronic kidney disease Code(s): D64.9 - Anemia, unspecified Status: Acute Assessment and Plan: Patient has history of anemia, likely secondary to CKD. Hemoglobin 10.6 upon admission. Previously 7.2 upon discharge on 09/27/2022. - check iron, TIBC, ferritin, B12, folic acid, and TSH - transfuse if <7 02/06: -Continue with daily CBC -Iron % sat 7L, will give Venofer and start on orals upon discharge -Recheck iron % tomorrow 02/07: -Iron % exceedingly high due to recent venofer admin -Continue to check daily CBC -Likely d/c with oral iron (6) Acute kidney injury: Code(s): N17.9 - Acute kidney failure, unspecified Status: Acute Assessment and Plan: Neph following, daily labs Renal US: IMPRESSION: Right kidney is unremarkable. Left kidney is not visualized. 02/07: Plan for HD catheter placement tomorrow, NPO at midnight. 02/08: Pt dialyzed today, continue to trend labs Plan Pt dialyzed today, hopeful move to med floor tomorrow. Continue to trend labs and fluid/diuresis status. Diet: Renal GI Prophylaxis: N/a DVT Prophylaxis: SCDs IV fluids: Not indicated as of now Lines/Tubes: Peripheral IV Code Status: Full code Time Spent With Patient Time: 35 Subjective Date/time seen: 02/08/25 1210 Interval history: Pt seen in her room post HD catheter placement. Pt still a bit groggy. Pt continues to deny SOB and CP. Pt at the bedside today. No other complaints. Review of Systems Review of Systems: All systems reviewed & are unremarkable except as noted in HPI and below Exam Const: General: no acute distress and uncomfortable Other: , female, nontoxic appearance HENMT: Face/Nose/Sinus: Normal nares present Mouth: Yes dry mucous membranes Eyes: General: appearance normal, both eyes and all related structures Sclera: sclerae normal Pupils: Equal, round and reactive pupils present EOM: EOMs intact bilaterally Neck: Neck: supple Resp: Effort & Inspection: normal respiratory effort Other: Bilateral lower lungs diminished lung sounds Cardio: Rate: regular rate Rhythm: regular rhythm Other: S1-S2 present without murmur, rub, ectopy GI: Inspection: non-distended Auscultation: abnormal bowel sounds (hypo, all quadrants) Other: Abdomen soft, nondistended, nontender. Skin: General skin exam: normal color and no rashes or lesions noted Other: Small scattered small areas of eschar less than 1 cm to bilateral shoulders, upper extremities, and forehead with no signs of infection. RLE: Normal inspection New HD catheter to R subclavian Neuro: Cranial nerves: Yes Equal, round and reactive pupils present Speech: normal speech Sensory Exam: normal sensation Other: A&O x4, generalized weakness Extrem: Other: Left BKA. RLE 2+ extending to the pannus. Thighs symmetric. RUE 1+ pitting edema Psych: Mental Status: mental status grossly normal Affect: Anxious affect present Objective Data Vital Signs Vital Signs: Vital Signs - 24 hr 02/07/25 08:54 02/07/25 10:00 02/07/25 12:00 Temperature 97.4 F L Pulse Rate 74 72 73 Respiratory Rate 24 H Blood Pressure 148/76 H Pulse Oximetry 95 02/07/25 12:00 02/07/25 13:54 02/07/25 16:00 Temperature Pulse Rate 72 74 75 Respiratory Rate Blood Pressure Pulse Oximetry 02/07/25 16:00 02/07/25 17:16 02/07/25 20:00 Temperature 98.2 F 98.1 F Pulse Rate 75 77 78 Respiratory Rate 20 18 Blood Pressure 147/73 H 154/73 H Pulse Oximetry 99 98 02/07/25 20:00 02/07/25 20:41 02/07/25 22:00 Temperature Pulse Rate 79 78 76 Respiratory Rate Blood Pressure Pulse Oximetry 02/08/25 00:00 02/08/25 00:00 02/08/25 02:00 Temperature 98.2 F Pulse Rate 77 76 74 Respiratory Rate 18 Blood Pressure 148/76 H Pulse Oximetry 99 02/08/25 04:00 02/08/25 04:00 02/08/25 06:00 Temperature 97.7 F Pulse Rate 73 73 73 Respiratory Rate 16 Blood Pressure 151/78 H Pulse Oximetry 99 Intake/Output Intake/Output: Intake & Output 02/05/25 02/06/25 02/07/25 02/08/25 23:59 23:59 23:59 23:59 Intake Total 1807.8 860 100 Output Total 540 1201 650 Balance 1267.8 -341 -550 Meds/Results Medications: Active Medications Generic Name Dose Route Start Last Admin Trade Name Freq PRN Reason Stop Dose Admin Acetaminophen 650 mg 02/05/25 20:41 Acetaminophen 325 Mg Tablet PO Q4H PRN Mild Pain (1-3) or Fever Bumetanide 2 mg 02/07/25 09:00 02/07/25 16:55 Bumetanide Inj 1 Mg/4 Ml Vial IV PUSH 2 mg TID MARGUERITE Administration Carvedilol 3.125 mg 02/05/25 21:00 02/07/25 20:41 Carvedilol 3.125 Mg Tablet PO 3.125 mg Q12HR MARGUERITE Administration Dextrose 12.5 gm 02/05/25 21:36 Dextrose 50% 25 Gm/50 Ml Syringe IV PUSH PRN PRN Hypoglycemia Protocol Glucagon 1 mg 02/05/25 21:36 Glucagon For Inj 1 Mg Vial IM PRN PRN Hypoglycemia Protocol Glucose 15 gm 02/05/25 21:36 Glucose Oral Gel 15 Gm Of Glucse In 37.5 Gm Tube PO PRN PRN Hypoglycemia Protocol Hydralazine HCl 10 mg 02/05/25 20:41 Hydralazine Hcl 20 Mg/Ml Vial IV PUSH Q4H PRN Blood Pressure - High, >180/90 Dextrose 1,000 mls @ 100 mls/hr 02/05/25 21:36 Dextrose 5% 1,000 Ml IVPB PRN PRN Hypoglycemia Protocol Sodium Bicarbonate 100 meq/ 1,100 mls @ 50 mls/hr 02/05/25 22:00 02/05/25 22:30 Sterile Water IV CONT 50 mls/hr On Hold: 02/06/25 07:08 .Q22H MARGUERITE Administration Insulin Aspart 4 - 8 units 02/06/25 08:00 02/07/25 16:42 Insulin Aspart (*Bkc) 100 Units/Ml SUB-Q Not Given TIDWM [facility] Protocol Insulin Aspart 2 - 4 units 02/05/25 21:45 02/07/25 20:41 Insulin Aspart (*Bkc) 100 Units/Ml SUB-Q Not Given HS MARGUERITE Protocol Metolazone 5 mg 02/07/25 09:00 02/07/25 08:56 Metolazone 5 Mg Tablet PO 5 mg QAM MARGUERITE Administration Morphine Sulfate 2 mg 02/05/25 21:29 02/06/25 13:35 Morphine Sulfate (*Crx) 4 Mg/Ml Inj IV PUSH 2 mg Q4H PRN Administration Pain Rated 7-10 Ondansetron HCl 4 mg 02/05/25 20:41 Ondansetron Inj 4 Mg/2 Ml Vial IV PUSH Q6H PRN Nausea And Vomiting Sodium Bicarbonate 650 mg 02/06/25 09:00 02/07/25 16:55 Sodium Bicarbonate Tab 650 Mg Tablet PO 650 mg TID MARGUERITE Administration Radiology Results: ITS Impressions Chest X-Ray 02/06/25 08:38 IMPRESSION: 1. Persistent pleural effusions with bibasilar atelectasis. 2. No pulmonary edema. Renal Ultrasound 02/06/25 17:09 IMPRESSION: Right kidney is unremarkable. Left kidney is not visualized. Labs Labs: Laboratory Results - last 24 hr 02/07/25 02/07/25 02/07/25 04:57 11:47 15:46 WBC RBC Hgb Hct MCV MCH MCHC RDW Plt Count MPV Immature Gran % (Auto) Neut % (Auto) Lymph % (Auto) [place] % (Auto) Eos % (Auto) Baso % (Auto) Lymph # (Auto) [place] # (Auto) Eos # (Auto) Baso # (Auto) Abs Immat Gran (auto) Absolute Neuts (auto) Absolute Nucleated RBC Nucleated RBC % Sodium Potassium Chloride Carbon Dioxide Anion Gap BUN Creatinine Estim Creat Clear Calc Estimated GFR Glucose POC Capillary Glucose 95 138 H Calcium Total Bilirubin AST ALT Alkaline Phosphatase Total Protein Albumin Hep B Core Total Ab Negative Blood Type Antibody Screen 02/07/25 02/08/25 19:46 04:30 WBC 6.2 RBC 3.96 L Hgb 9.4 L Hct 30.7 L MCV 77.5 L MCH 23.7 L MCHC 30.6 L RDW 20.4 H Plt Count 455 H MPV 10.3 Immature Gran % (Auto) 0.5 Neut % (Auto) 58.6 Lymph % (Auto) 20.3 [place] % (Auto) 14.1 H Eos % (Auto) 5.5 H Baso % (Auto) 1.0 Lymph # (Auto) 1.25 [place] # (Auto) 0.9 H Eos # (Auto) 0.3 Baso # (Auto) 0.1 Abs Immat Gran (auto) 0.03 Absolute Neuts (auto) 3.6 Absolute Nucleated RBC 0.020 H Nucleated RBC % 0.3 H Sodium 134 L Potassium 4.4 Chloride 107 Carbon Dioxide 9 L Anion Gap 18 H BUN 78 H Creatinine 9.75 H Estim Creat Clear Calc 9 Estimated GFR 4 L Glucose 90 POC Capillary Glucose 153 H Calcium 6.0 L Total Bilirubin 0.3 AST 36 ALT 25 Alkaline Phosphatase 124 Total Protein 6.0 L Albumin 2.9 L Hep B Core Total Ab Blood Type A Positive Antibody Screen Negative Quality VTE Prophylaxis VTE prophylaxis: mechanical ordered
--- NOTE | 2025-02-08 08:39 | PC.NURSE ---
pt taken down by surg team for dialysis cath
[2025-02-08] MEDS: VANCOMYCIN 500 MG/NS 100 ML 500 MG/100 ML BAG 100 MG IVPB (09:05)
--- NOTE | 2025-02-08 09:06 | WPDHPUPDATE1 ---
History and Physical Update Update Date/Time: 02/08/25 09:06 History and Physical has been reviewed, including an updated exam of the patient. There are NO changes in the patient's condition. Risks, benefits, and alternatives have been discussed and questions answered. Patient agrees to proceed with procedure. Discussed with Nephrology, Dr. Villatoro has requested that a tunnelled HD catheter be placed.
--- NOTE | 2025-02-08 09:16 | P.PNCA_ITS ---
Progress Note: A&P Assessment and Plan (1) CHF (congestive heart failure): Qualifiers: Heart failure chronicity: acute Heart failure type: unspecified Qualified Code(s): I50.9 - Heart failure, unspecified Code(s): I50.9 - Heart failure, unspecified Status: Acute (2) Hypertension: Qualifiers: Hypertension type: primary hypertension Qualified Code(s): I10 - Essential (primary) hypertension Code(s): I10 - Essential (primary) hypertension Status: Acute (3) Diabetes: Qualifiers: Chronic kidney disease stage: unspecified stage Diabetes mellitus complication detail: with chronic kidney disease Diabetes mellitus complication status: with kidney complications 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 EF of 30-35% per echo. Most likely secondary to uncontrolled HTN d/t medication non-compliance. Her CXR shows pleural effusions. Her pBNP is >11877. Shifted from lasix drip to IV Bumex, now on dialysis. Currently on coreg 3.125 mg BID and will uptitrate as tolerated. No ARB/ARNI or SGLT-2 at this time in setting of GARRISON/CKD. Hypertension. Unontrolled on arrival to [place] with SBP >200. She has a known history of pre-eclampsia with both of her preganancies. She has been off all anti-hypertensive therapy for over 2 years. She has been started on coreg 3.125 mg BID. Has hydralazine IV prn. Blood pressure improving but remains above goal. Will re-evaluate after dialysis/volume removal Cardiomyopathy. Unclear if ischemic vs non-ischemic, most likely however, secondary to uncontrolled HTN. Will need ischemic eval most likely with stress test on OP basis. Will consider lifevest prior to dc. Continue coreg 3.125 mg BID at this time GARRISON/CKD. With a creatnine of 10.26 on admission. She continues to make small sandra unts of urine. Getting dialysis catheter today Generalized anasarca. In setting of GARRISON/CKD, uncontrolled HTN and CHF. Volume management with dialysis Diabetes. Poorly controlled. 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 Subjective Date/time seen: 02/08/25 14:26 Interval history: Cardiology follow-up visit Date of service 02/08/2025: Dialysis catheter placed this morning, seeing her while getting dialyzed. She doesn't have any specific complaints. Denies shortness of breath, chest pain. Review of Systems Review of Systems: All systems reviewed & are unremarkable except as noted in HPI and below Exam Const: General: comfortable, ill appearing chronically and tired appearing Neck: Neck: supple and no JVD Carotids: bruit Resp: Effort & Inspection: normal respiratory effort Auscultation: clear to auscultation bilaterally Cardio: Rate: regular rate Rhythm: regular rhythm Heart sounds: no gallops, no murmurs and no rubs GI: Auscultation: normal bowel sounds Skin: General skin exam: rashes and/or lesions noted Extrem: General: edema Other: anasarca Lt BKA Psych: Mental Status: mental status grossly normal Affect: normal affect Objective Data Vital Signs Vital Signs: Vital Signs - 24 hr 02/07/25 10:00 02/07/25 12:00 02/07/25 12:00 Temperature 36.3 C L Pulse Rate 72 73 72 Respiratory Rate 24 H Blood Pressure 148/76 H Pulse Oximetry 95 02/07/25 13:54 02/07/25 16:00 02/07/25 16:00 Temperature 36.8 C Pulse Rate 74 75 75 Respiratory Rate 20 Blood Pressure 147/73 H Pulse Oximetry 99 02/07/25 17:16 02/07/25 20:00 02/07/25 20:00 Temperature 36.7 C Pulse Rate 77 78 79 Respiratory Rate 18 Blood Pressure 154/73 H Pulse Oximetry 98 02/07/25 20:41 02/07/25 22:00 02/08/25 00:00 Temperature 36.8 C Pulse Rate 78 76 77 Respiratory Rate 18 Blood Pressure 148/76 H Pulse Oximetry 99 02/08/25 00:00 02/08/25 02:00 02/08/25 04:00 Temperature Pulse Rate 76 74 73 Respiratory Rate Blood Pressure Pulse Oximetry 02/08/25 04:00 02/08/25 06:00 Temperature 36.5 C Pulse Rate 73 73 Respiratory Rate 16 Blood Pressure 151/78 H Pulse Oximetry 99 Intake/Output Intake/Output: Intake & Output 02/05/25 02/06/25 02/07/25 02/08/25 23:59 23:59 23:59 23:59 Intake Total 1807.8 860 100 Output Total 540 1201 650 Balance 1267.8 -143 -453 Meds/Results Medications: Active Medications Generic Name Dose Route Start Last Admin Trade Name Freq PRN Reason Stop Dose Admin Acetaminophen 650 mg 02/05/25 20:41 Acetaminophen 325 Mg Tablet PO Q4H PRN Mild Pain (1-3) or Fever Bumetanide 2 mg 02/07/25 09:00 02/07/25 16:55 Bumetanide Inj 1 Mg/4 Ml Vial IV PUSH 2 mg TID MARGUERITE Administration Carvedilol 3.125 mg 02/05/25 21:00 02/07/25 20:41 Carvedilol 3.125 Mg Tablet PO 3.125 mg Q12HR MARGUERITE Administration Dextrose 12.5 gm 02/05/25 21:36 Dextrose 50% 25 Gm/50 Ml Syringe IV PUSH PRN PRN Hypoglycemia Protocol Glucagon 1 mg 02/05/25 21:36 Glucagon For Inj 1 Mg Vial IM PRN PRN Hypoglycemia Protocol Glucose 15 gm 02/05/25 21:36 Glucose Oral Gel 15 Gm Of Glucse In 37.5 Gm Tube PO PRN PRN Hypoglycemia Protocol Hydralazine HCl 10 mg 02/05/25 20:41 Hydralazine Hcl 20 Mg/Ml Vial IV PUSH Q4H PRN Blood Pressure - High, >180/90 Dextrose 1,000 mls @ 100 mls/hr 02/05/25 21:36 Dextrose 5% 1,000 Ml IVPB PRN PRN Hypoglycemia Protocol Sodium Bicarbonate 100 meq/ 1,100 mls @ 50 mls/hr 02/05/25 22:00 02/05/25 22:30 Sterile Water IV CONT 50 mls/hr On Hold: 02/06/25 07:08 .Q22H MARGUERITE Administration Insulin Aspart 4 - 8 units 02/06/25 08:00 02/08/25 09:07 Insulin Aspart (*Bkc) 100 Units/Ml SUB-Q Not Given TIDWM MARGUERITE Protocol Insulin Aspart 2 - 4 units 02/05/25 21:45 02/07/25 20:41 Insulin Aspart (*Bkc) 100 Units/Ml SUB-Q Not Given HS [facility] Protocol Metolazone 5 mg 02/07/25 09:00 02/07/25 08:56 Metolazone 5 Mg Tablet PO 5 mg QAM MARGUERITE Administration Morphine Sulfate 2 mg 02/05/25 21:29 02/06/25 13:35 Morphine Sulfate (*Crx) 4 Mg/Ml Inj IV PUSH 2 mg Q4H PRN Administration Pain Rated 7-10 Ondansetron HCl 4 mg 02/05/25 20:41 Ondansetron Inj 4 Mg/2 Ml Vial IV PUSH Q6H PRN Nausea And Vomiting Sodium Bicarbonate 650 mg 02/06/25 09:00 02/07/25 16:55 Sodium Bicarbonate Tab 650 Mg Tablet PO 650 mg TID MARGUERITE Administration Radiology Results: ITS Impressions Chest X-Ray 02/06/25 08:38 IMPRESSION: 1. Persistent pleural effusions with bibasilar atelectasis. 2. No pulmonary edema. Renal Ultrasound 02/06/25 17:09 IMPRESSION: Right kidney is unremarkable. Left kidney is not visualized. Labs Labs: Laboratory Results - last 24 hr 02/07/25 02/07/25 02/07/25 04:57 11:47 15:46 WBC RBC Hgb Hct MCV MCH MCHC RDW Plt Count MPV Immature Gran % (Auto) Neut % (Auto) Lymph % (Auto) [place] % (Auto) Eos % (Auto) Baso % (Auto) Lymph # (Auto) [place] # (Auto) Eos # (Auto) Baso # (Auto) Abs Immat Gran (auto) Absolute Neuts (auto) Absolute Nucleated RBC Nucleated RBC % Sodium Potassium Chloride Carbon Dioxide Anion Gap BUN Creatinine Estim Creat Clear Calc Estimated GFR Glucose POC Capillary Glucose 95 138 H Calcium Total Bilirubin AST ALT Alkaline Phosphatase Total Protein Albumin Hep B Core Total Ab Negative Blood Type Antibody Screen 02/07/25 02/08/25 02/08/25 19:46 04:30 08:58 WBC 6.2 RBC 3.96 L Hgb 9.4 L Hct 30.7 L MCV 77.5 L MCH 23.7 L MCHC 30.6 L RDW 20.4 H Plt Count 455 H MPV 10.3 Immature Gran % (Auto) 0.5 Neut % (Auto) 58.6 Lymph % (Auto) 20.3 [place] % (Auto) 14.1 H Eos % (Auto) 5.5 H Baso % (Auto) 1.0 Lymph # (Auto) 1.25 [place] # (Auto) 0.9 H Eos # (Auto) 0.3 Baso # (Auto) 0.1 Abs Immat Gran (auto) 0.03 Absolute Neuts (auto) 3.6 Absolute Nucleated RBC 0.020 H Nucleated RBC % 0.3 H Sodium 134 L Potassium 4.4 Chloride 107 Carbon Dioxide 9 L Anion Gap 18 H BUN 78 H Creatinine 9.75 H Estim Creat Clear Calc 9 Estimated GFR 4 L Glucose 90 POC Capillary Glucose 153 H 81 Calcium 6.0 L Total Bilirubin 0.3 AST 36 ALT 25 Alkaline Phosphatase 124 Total Protein 6.0 L Albumin 2.9 L Hep B Core Total Ab Blood Type A Positive Antibody Screen Negative Quality VTE Prophylaxis VTE prophylaxis: mechanical ordered
--- NOTE | 2025-02-08 09:21 | P.PNAN_ITS ---
Anes - Initial Pre Proc Eval Procedure: Operation Date: 02/08/25 10:00 Proposed Procedures p Insertion Tunneled Dialysis Catheter - Edenilson Juan MD Date/Time: 02/08/25 09:21 Surgeon: Jairo Meyer MD Pre Op Diagnosis: acute kidney failure Patient Data Age: 44 Gender: F Height: 1.68 m Weight: 122.1 kg Last Vital Signs Temp 36.5 C 02/08/25 04:00 Pulse 73 02/08/25 06:00 Resp 16 02/08/25 04:00 BP 151/78 H 02/08/25 04:00 Pulse Ox 99 02/08/25 04:00 O2 Del Method Room Air 02/07/25 03:48 Allergies Allergy/AdvReac Type Severity Reaction Status Date / Time Penicillins Allergy Intermediate Rash Verified 02/05/25 21:05 adhesive tape Allergy Mild skin Verified 02/05/25 21:32 tears, erythema, itching Home Medications ?Medication ?Instructions ?Recorded ?Confirmed ?Type carvedilol 3.125 mg tablet (Coreg) 3.125 mg PO Q12HR # 60 tabs 09/30/22 02/05/25 Rx cyclobenzaprine 10 mg tablet 5 mg (1/2 x 10 mg) PO Q8H PRN 09/30/22 02/05/25 Rx Muscle Spasm #30 tabs escitalopram oxalate 10 mg tablet 10 mg PO DAILY #30 t abs 09/30/22 02/05/25 Rx hydralazine 50 mg tablet 50 mg PO Q6HR #120 tabs 12/1502/05/25 Rx insulin detemir U-100 100 unit/mL 20 unit (0.2 mL) sub cut HS 30 days 09/30/22 02/05/25 Rx (3 mL) subcutaneous pen (Levemir #15 mL FlexPen) pantoprazole 40 mg tablet,delayed 40 mg PO Q12HR #60 t abs 09/30/22 02/05/25 Rx release Laboratory Tests 02/07/25 02/07/25 02/07/25 04:57 11:47 15:46 WBC RBC Hgb Hct MCV MCH MCHC RDW Plt Count MPV Immature Gran % (Auto) Neut % (Auto) Lymph % (Auto) Platte % (Auto) Eos % (Auto) Baso % (Auto) Lymph # (Auto) Platte # (Auto) Eos # (Auto) Baso # (Auto) Abs Immat Gran (auto) Absolute Neuts (auto) Absolute Nucleated RBC Nucleated RBC % Sodium Potassium Chloride Carbon Dioxide Anion Gap BUN Creatinine Estim Creat Clear Calc Estimated GFR Glucose POC Capillary Glucose 95 mg/dl 138 H mg/dl (65-105) (65-105) Calcium Total Bilirubin AST ALT Alkaline Phosphatase Total Protein Albumin Hep B Core Total Ab Negative (Negative) Blood Type Antibody Screen 02/07/25 02/08/25 02/08/25 19:46 04:30 08:58 WBC 6.2 K/mm3 (4.5-10.0) RBC 3.96 L M/mm3 (4.2-5.4) Hgb 9.4 L g/dL (12.0-15.0) Hct 30.7 L % (37.0-47.0) MCV 77.5 L fl (80-100) MCH 23.7 L pg (26-34) MCHC 30.6 L g/dl (32-36) RDW 20.4 H % (11.5-14.5) Plt Count 455 H k/mm3 (150-375) MPV 10.3 fl (7.4-10.4) Immature Gran % (Auto) 0.5 % (0-0.5) Neut % (Auto) 58.6 % (45.5-73.1) Lymph % (Auto) 20.3 % (18.3-44.2) Platte % (Auto) 14.1 H % (2.6-8.5) Eos % (Auto) 5.5 H % (0-4.4) Baso % (Auto) 1.0 % (0.2-1.2) Lymph # (Auto) 1.25 K/mm3 (0.9-3.2) Platte # (Auto) 0.9 H K/mm3 (0.1-0.6) Eos # (Auto) 0.3 K/mm3 (0-0.3) Baso # (Auto) 0.1 K/mm3 (0.0-0.1) Abs Immat Gran (auto) 0.03 K/mm3 (0.00-0.031) Absolute Neuts (auto) 3.6 K/mm3 (1.3-6.7) Absolute Nucleated RBC 0.020 H K/mm3 (0.0-0.012) Nucleated RBC % 0.3 H % (0.0-0.2) Sodium 134 L mmol/L (137-145) Potassium 4.4 mmol/L (3.4-5.0) Chloride 107 mmol/L (98-107) Carbon Dioxide 9 L mmol/L (22-30) Anion Gap 18 H mmol/L (4-12) BUN 78 H mg/dL (7-17) Creatinine 9.75 H mg/dL (0.7-1.0) Estim Creat Clear Calc 9 ml/min Estimated GFR 4 L (59 - ) Glucose 90 mg/dL (65-110) POC Capillary Glucose 153 H mg/dl 81 mg/dl (65-105) (65-105) Calcium 6.0 L mg/dL (8.4-10.2) Total Bilirubin 0.3 mg/dL (0.2-1.3) AST 36 U/L (14-36) ALT 25 U/L (6-35) Alkaline Phosphatase 124 U/L (38-126) Total Protein 6.0 L g/dL (6.3-8.2) Albumin 2.9 L g/dL (3.5-5.1) Hep B Core Total Ab Blood Type A Positive Antibody Screen Negative Patient hx anesthesia problems: none Family hx anesthesia problems: none Results Review: All pre-operative results and documents have been reviewed as part of the pre- operative evaluation. 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 Code status: Full code. Smoking packs per day: 0 Smoking cigarettes per day: 0.0 Years smoked: 0 Smoking pack-years: 0.00 Smoking status: Never smoker Second hand tobacco smoke exposure: No Alcohol intake: never Drinks per week: 0 Substance use: never Substance use type: does not use Lack of Transportation: No Lack of Food: Never True Current Housing: I Have Housing Concerned About Future Housing: No Difficulty Paying Gas/Electric Bills: No Difficulty Paying for Meds: No Currently Unemployed: No Education: Bachelor's Degree Difficulty w/ Childcare or Family Care: No Living arrangements: with family Additional living arrangements comments: Lives with spouse and children. Occupation/Education: occupation Gender identity (if verbalized by the patient): Female Sexual Orientation (if Verbalized by the Patient): Straight or Heterosexual Spiritual care concerns: No Agree to blood products: No Anes - Eval Final PreProcedure Day of Procedure 02/08/25 09:21 Patient weight: morbidly obese Heart: regular rate and rhythm Lungs: clear to auscultation Airway: Mallampati scale class II and special considerations poor dentition Neurological: alert and oriented Last oral intake: >/= 8 hours ASA classification: IV Emergent: no Anesthetic plan: proceed Anesthesia type and monitoring: general GIVS and standard monitoring Results Review: All pre-operative results and documents have been reviewed as part of the pre- operative evaluation. Informed Consent: The patient's anesthetic plan and its attendant risks and benefits were discussed with the patient/family/POA. Questions were solicited and answers provided to the satisfaction of the patient/family/POA.
[2025-02-08] MEDS: LIDO 1%/EPINEPHRINE 1:100,000 20 ML VIAL 30 ML INFILTRATE (10:28)
--- NOTE | 2025-02-08 10:59 | P.OP_ITS ---
Procedure Note - Detailed Date of Procedure 02/08/25 Pre-op Diagnosis Acute on chronic renal failure, congestive heart failure, volume overload, uncontrolled diabetes. Post-op Diagnosis Same Procedure Performed Placement of right subclavian vein tunneled hemodialysis catheter with intraoperative fluoroscopy Surgeon Edenilson Juan MD Card Writer Hand Rivera Olson, GARBAGE COLLECTOR DRIVER Anesthesia General Indications Patient is a 44-year-old female who unfortunately has uncontrolled diabetes. As a result she also has acute on chronic renal failure and it is anticipated she will need ongoing hemodialysis. She presents now for placement of a tunneled hemodialysis catheter. Findings None significant Description of Procedure After informed consent was obtained patient was brought to the operating room she was placed supine position and general LMA anesthesia was administered. The bilateral upper anterior neck and chest was then prepped and draped usual sterile fashion. Time-out was then performed correctly identifying the patient as well as procedure to be performed. She was given 500cc of vancomycin perioperatively. I 1st started by approaching placement of the tunneled hemodialysis catheter via the right subclavian vein. The patient head-down Trendelenburg position I then anesthetized the skin and the tract to the catheter with 1% lidocaine mixed with 0.5% Marcaine with some epinephrine. Then with the head down in the Trendelenburg position a long 18gauge spinal needle was then used to percutaneously cannulate the right subclavian vein on the 1st pass. Dark venous appearing blood was returned into the syringe and then a guidewire was passed through the needle into the right subclavian vein down into the superior vena cava. Intraoperative fluoroscopy was then used to visualize the guidewire and it was in the proper position going downward into the superior vena cava. I then proceeded to make a stab incision in the right upper anterior chest about 10cm below the insertion site of the guidewire. The insertion site of the guidewire was enlarged with a scalpel and then subcutaneous tissues there was both a hemostat. The 19cm dura flow hemodialysis catheter was then tunneled between these 2 incisions. The cuff to the catheter was situated about 3cm below the upper incision. I then advanced a dilator serially over the guidewire to enlarge venotomy. Lastly a dilator and breakaway sheath was advanced over the guidewire into the right subclavian vein subsequent down into the superior vena cava. The dilator and guidewire were removed leaving the sheath in place. The hemodialysis catheter was advanced through the sheath into the right subclavian vein subsequent down into the superior vena cava. The sheath was then torn away leaving the catheter in place. Intraoperative fluoroscopy was then used once more to visualize the tip of the tunneled hemodialysis catheter. Appear to be in excellent position in the distal superior vena cava. I then proceeded to secure the catheter in place at the skin at the insertion site utilizing a 3-0 nylon suture. The flange on the catheter was then secured to the skin of the upper anterior right chest wall utilizing 3-0 nylon sutures as well. The catheter was then aspirated and both the arterial and venous ports aspirated easily and flushed with good high flows without resistance. Lastly I then flushed both the arterial venous ports with 2500units of heparin in each of the ports. The small incision below the right clavicle was then closed utilizing a 4-0 Monocryl suture to approximate the skin edges. It was then covered with skin glue. The insertion site of the catheter at the skin was then dressed with sterile 4x4s and Tegaderm. The patient tolerated the procedure well no complications. All sponges, needles, and instrument counts were correct at the end procedure. EBL was _50__cc. The patient was awakened and taken to recovery in stable and satisfactory condition. Postprocedure chest x-ray is pending at the time of dictation. Implants 19cm tunneled dura flow hemodialysis catheter via right subclavian vein. Estimated Blood Loss 50 Drains No Packing No Pathology None sent Complications No immediate complications Condition Stable Disposition PACU [facility] Billing Surgery - Charge Forward: Surgery Billing
[2025-02-08] MEDS: SODIUM CHLORIDE 0.9% IV 500 ML 30 ML IV CONT (11:05)
[2025-02-08] MEDS: BUMETANIDE INJ 1 MG/4 ML VIAL 2 MG IV PUSH ×2 (12:14→16:45)
[2025-02-08] MEDS: SODIUM BICARBONATE TAB 650 MG TABLET PO ×2 (12:15→16:46)
--- NOTE | 2025-02-08 12:59 | PC.NURSE ---
pt up to dialysis
--- NOTE | 2025-02-08 14:01 | P.PNNP_ITS ---
Progress Note: A&P Assessment and Plan (1) Acute kidney injury: Code(s): N17.9 - Acute kidney failure, unspecified Status: Acute Assessment and Plan: * no improvement at this time * as noted by admission labs (creatinine 10.26mg/dL) * unclear acuity versus chronicity of this issue (see #2) * complicated/associated with volume overload/anasarca and metabolic acidosis * etiology not clear... * evaluation to date noted: * urine electrolytes non-prerenal * UA with blood and protein * CPK mildly elevated but not enough to affect kidney function * renal ultrasound okay (unable to visualize left kidney) * nephrotic range proteinuria * serological evaluation noted (negative ANCA/dsDNA-ab/SPEP...rest are pending) * elevated CRP and ESR noted * no significant improvement with diuretic therapy * initiated on [facility] [facility]/HD today (02/08) * plan HD tomorrow as well * consider renal biopsy?? * follow trend of repeat labs and UOP (2) Stage 3b chronic kidney disease: Code(s): N18.32 - Chronic kidney disease, stage 3b Status: Chronic Assessment and Plan: * creatinine down to 1.5mg/dL on September 2022 discharge * unclear if renal function recovered to normal (creatinine did go down as low as 0.7mg/dL during August/September 2022 hospitalization) * multiple risk factors for CKD: * hypertension * diabetes * vascular disease * recently discovered cardiomyopathy * other(?) (3) Volume overload: Code(s): E87.70 - Fluid overload, unspecified Status: Acute Assessment and Plan: * as noted by clinical exam (anasarca) * multifactorial etiology: * renal dysfunction * nephrotic range proteinuria/nephrotic syndrome * cardiomyopathy * vascular disease * no improvement with diuretics * fluid removal with HD/DUF as tolerated (4) Metabolic acidosis: Code(s): E87.20 - Acidosis, unspecified Status: Acute Assessment and Plan: * quite severe on presentation (CO2 < 5) * presuably due to GARRISON/renal dysfunction * started on oral bicarbonate to compensate * should correct with HD as well (5) Cardiomyopathy: Code(s): I42.9 - Cardiomyopathy, unspecified Status: Acute Assessment and Plan: * acute versus chronic? * ischemic versus non-ischemic? * Echo results noted (02/06): * left ventricular systolic function is severely reduced, estimated at 30 - 35% * left ventricular diastolic function is grade I diastolic dysfunction * mild to moderate mitral valve regurgitation * mild to moderate tricuspid valve regurgitation * moderate pulmonary hypertension, estimated pulmonary arterial systolic pressure is 47 mmHg * mild pulmonic regurgitation * Cardiology following * GMDT maybe somewhat limited by her severe renal dysfunction (6) Hypertension: Qualifiers: Hypertension type: primary hypertension Qualified Code(s): I10 - Essential (primary) hypertension Code(s): I10 - Essential (primary) hypertension Status: Acute Assessment and Plan: * quite elevated on ER presentation (systolic BP > 200) * better control at this time * follow trend of hemodynamics * dialysis/fluid removal may help (7) Anemia: Qualifiers: Anemia type: due to chronic kidney disease Chronic kidney disease stage: unspecified stage Qualified Code(s): N18.9 - Chronic kidney disease, unspecified; D63.1 - Anemia in chronic kidney disease Code(s): D64.9 - Anemia, unspecified Status: Acute Assessment and Plan: * at least partly related to renal dysfunction * anemia studies demonstrate iron deficiency * getting IV iron * start Epogen with HD once BP better * follow trend of H/H (8) Diabetes: Qualifiers: Chronic kidney disease stage: unspecified stage Diabetes mellitus complication detail: with chronic kidney disease Diabetes mellitus complication status: with kidney complications Diabetes mellitus senior living insulin use: w [facility] senior living use Diabetes mellitus type: type 2 Qualified Code(s): E11.22 - Type 2 diabetes mellitus with diabetic chronic kidney disease Code(s): E11.9 - Type 2 diabetes mellitus without complications Status: Chronic Assessment and Plan: * follow accu-cheks * glycemic control per hospitalist Will continue to follow. L Subjective Date/time seen: 02/08/25 14:01 Interval history: Follow-up for acute kidney injury/acute renal failure on chronic kidney disease?) and anasarca. Status post HD catheter placement earlier this afternoon and tolerated this procedure reasonably well; better urine output noted with aggressive IV diuretics but swelling/edema has not really changed/improved; tolerating dialysis treatment at the time of my visit as well (seen on HD at 1:50pm); no acute complains voiced. Exam 2 Narrative: General: quite anxious but WD/WN female in NAD Heart: normal S1 and S2; no rub Lungs: decreased at the bases Abdomen: obese but soft, nontender, nondistended, positive bowel sounds Extremities: no cyanosis or clubbing; 2 - 3+ edema in RLE and BUEs; s/p left BKA Skin: warm and intact Objective Data Vital Signs Vital Signs: Vital Signs Temp Pulse Resp BP Pulse Ox O2 Del Method O2 Flow Rate 02/08/25 14:00 80 192/92 H 02/08/25 13:45 80 192/95 H 02/08/25 13:30 79 186/93 H 02/08/25 13:17 77 184/93 H 02/08/25 13:04 75 178/89 H 02/08/25 12:55 97.7 F 75 16 177/93 H 97 02/08/25 12:45 97.8 F 74 20 183/85 H 98 02/08/25 12:15 73 02/08/25 12:02 74 02/08/25 11:44 72 14 166/91 H 97 Room Air 02/08/25 11:35 70 12 157/89 H 94 Room Air 02/08/25 11:20 70 14 162/82 H 95 Room Air 02/08/25 11:05 97.3 F L 69 11 L 149/81 H 98 Simple Face Mask 8 02/08/25 08:00 75 02/08/25 08:00 97.5 F L 74 18 159/71 H 100 02/08/25 06:00 73 02/08/25 04:00 97.7 F 73 16 151/78 H 99 02/08/25 04:00 73 02/08/25 02:00 74 02/08/25 00:00 76 02/08/25 00:00 98.2 F 77 18 148/76 H 99 02/07/25 22:00 76 02/07/25 20:41 78 02/07/25 20:00 79 02/07/25 20:00 98.1 F 78 18 154/73 H 98 Intake/Output Intake/Output: Intake & Output 02/05/25 02/06/25 02/07/25 02/08/25 23:59 23:59 23:59 23:59 Intake Total 1807.8 860 1980 Output Total 540 1201 1050 Balance 1267.8 -341 930 Meds/Results Medications: Active Medications Generic Name Dose Route Start Last Admin Trade Name Freq PRN Reason Stop Dose Admin Acetaminophen 650 mg 02/05/25 20:41 Acetaminophen 325 Mg Tablet PO Q4H PRN Mild Pain (1-3) or Fever Hydrocodone Bitart/Acetaminophen 1 tab 02/08/25 11:49 Hydrocodone/Acetaminophen (*Crx) 5-325 Mg Tablet PO Q4H PRN Pain Rated 4-6 Bumetanide 2 mg 02/07/25 09:00 02/08/25 17:06 Bumetanide Inj 1 Mg/4 Ml Vial IV PUSH Not Given TID MARGUERITE Carvedilol 3.125 mg 02/05/25 21:00 02/08/25 12:15 Carvedilol 3.125 Mg Tablet PO 3.125 mg Q12HR MARGUERITE Administration Dextrose 12.5 gm 02/05/25 21:36 Dextrose 50% 25 Gm/50 Ml Syringe IV PUSH PRN PRN Hypoglycemia Protocol Glucagon 1 mg 02/05/25 21:36 Glucagon For Inj 1 Mg Vial IM PRN PRN Hypoglycemia Protocol Glucose 15 gm 02/05/25 21:36 Glucose Oral Gel 15 Gm Of Glucse In 37.5 Gm Tube PO PRN PRN Hypoglycemia Protocol Hydralazine HCl 10 mg 02/05/25 20:41 Hydralazine Hcl 20 Mg/Ml Vial IV PUSH Q4H PRN Blood Pressure - High, >180/90 Hydralazine HCl 50 mg 02/08/25 18:00 02/08/25 16:46 Hydralazine Hcl 50 Mg Tablet PO 50 mg Q6HR MARGUERITE Administration Dextrose 1,000 mls @ 100 mls/hr 02/05/25 21:36 Dextrose 5% 1,000 Ml IVPB PRN PRN Hypoglycemia Protocol Sodium Bicarbonate 100 meq/ 1,100 mls @ 50 mls/hr 02/05/25 22:00 02/05/25 22:30 Sterile Water IV CONT 50 mls/hr On Hold: 02/06/25 07:08 .Q22H MARGUERITE Administration Insulin Aspart 4 - 8 units 02/06/25 08:00 02/08/25 17:07 Insulin Aspart (*Bkc) 100 Units/Ml SUB-Q Not Given TIDWM MARGUERITE Protocol Insulin Aspart 2 - 4 units 02/05/25 21:45 02/07/25 20:41 Insulin Aspart (*Bkc) 100 Units/Ml SUB-Q Not Given HS MARGUERITE Protocol Metolazone 5 mg 02/07/25 09:00 02/08/25 12:16 Metolazone 5 Mg Tablet PO 5 mg QAM [facility] Administration Morphine Sulfate 2 mg 02/05/25 21:29 02/06/25 13:35 Morphine Sulfate (*Crx) 4 Mg/Ml Inj IV PUSH 2 mg Q4H PRN Administration Pain Rated 7-10 Ondansetron HCl 4 mg 02/05/25 20:41 Ondansetron Inj 4 Mg/2 Ml Vial IV PUSH Q6H PRN Nausea And Vomiting Oxycodone HCl 5 mg 02/08/25 11:08 Oxycodone Hcl (*Crx) 5 Mg Tab Ir PO Q6H PRN Pain Rated 7-10 Sodium Bicarbonate 650 mg 02/06/25 09:00 02/08/25 17:07 Sodium Bicarbonate Tab 650 Mg Tablet PO Not Given TID [facility] Radiology Results: ITS Impressions Renal Ultrasound 02/06/25 17:09 IMPRESSION: Right kidney is unremarkable. Left kidney is not visualized. Chest X-Ray 02/08/25 11:41 IMPRESSION: 1. Likely tunneled large-bore dual-lumen] central venous catheter with distal tip in the midsuperior vena cava. 2. Pleural effusions with associated bibasilar atelectasis and/or pneumonia. Labs Labs: Laboratory Tests 02/08/25 04:30 02/08/25 04:30 Calcium 6.0 L Total Bilirubin 0.3 AST 36 ALT 25 Alkaline Phosphatase 124 Total Protein 6.0 L Albumin 2.9 L
--- NOTE | 2025-02-08 14:20 | PCCDE ---
02/08/25: This DM educator attempted to follow up with patient today -- she's at dialysis. RN also indicating pt still out of it due to catheter placement today. - Provided ?How to Thrive: A Guide for Your Journey with Diabetes? (ADA) magazine. and Outpatient flyer to RN for patient.
--- NOTE | 2025-02-08 15:38 | PC.NURSE ---
gave sister update that pt is currently doing dialysis
[2025-02-08 16:08] LABS: Albumin 2.5 g/dL (2.9-4.4); Alpha-1-Globulin 0.4 g/dL (0.0-0.4); Alpha-2-Globulin 0.8 g/dL (0.4-1.0); Gamma Globulin 1.0 g/dL (0.4-1.8)
[2025-02-08] MEDS: ACETAMINOPHEN 325 MG TABLET 650 MG PO (21:04)
[2025-02-09] VITALS (34 sets, daily range): BP systolic 124–190; BP diastolic 63–92; PULSE 81–93; RESP 16–20; TEMP 36.5–38; O2SAT 91–97
[2025-02-09 04:56] LABS: Hematocrit 30.5 % (37.0-47.0); Hemoglobin 9.6 g/dL (12.0-15.0); Immature Granulocyte Percent A 0.2 % (0-0.5); Lymphocytes Absolute Auto 0.21 K/mm3 (0.9-3.2); Mean Corpuscular HGB Conc 31.5 g/dl (32-36); Mean Corpuscular Hemoglobin 23.7 pg (26-34); Mean Corpuscular Volume 75.3 fl (80-100); Nucleated Red Blood Cells Absolute Auto 0.000 K/mm3 (0.0-0.012); Nucleated Red Blood Cells Perc 0.0 % (0.0-0.2); Platelet Count Result 471 k/mm3 (150-375); Red Blood Count 4.05 M/mm3 (4.2-5.4); White Blood Count 4.1 K/mm3 (4.5-10.0)
[2025-02-09 05:18] LABS: Alanine Aminotransferase 21 U/L (6-35); Albumin Level 2.8 g/dL (3.5-5.1); Alkaline Phosphatase 115 U/L (38-126); Anion Gap 15 mmol/L (4-12); Aspartate Amino Transferase 24 U/L (14-36); Bilirubin,Total 0.5 mg/dL (0.2-1.3); Blood Urea Nitrogen 65 mg/dL (7-17); Calcium 6.4 mg/dL (8.4-10.2); Carbon Dioxide 15 mmol/L (22-30); Chloride 102 mmol/L (98-107); Estimated CRCL calculation 11 ml/min; Estimated Glomerular Filt Rate 5; Glucose 171 mg/dL (65-110); Potassium 4.2 mmol/L (3.4-5.0); Sodium 132 mmol/L (137-145); Total Protein 5.9 g/dL (6.3-8.2)
[2025-02-09 05:32] LABS: Anisocytosis 2+; Poikilocytosis 1+
[2025-02-09 05:33] LABS: Schistocytes Rare
[2025-02-09 05:34] LABS: Hypochromasia 1+
--- NOTE | 2025-02-09 08:33 | P.PNIM_ITS ---
Progress Note: A&P Assessment and Plan (1) CHF (congestive heart failure): Qualifiers: Heart failure type: unspecified Heart failure chronicity: acute Qualified Code(s): I50.9 - Heart failure, unspecified Code(s): I50.9 - Heart failure, unspecified Status: Acute Assessment and Plan: Patient originally presented for primary complaint of shortness of breath and right lower extremity swelling (history of left BKA).? CXR showed mild CHF.? BNP greater than 30,000. Given new onset renal failure, may be hypervolemia due to acute renal failure/ESRD verses new onset CHF or combination thereof. - BNP greater than 30,000 upon admission on 02/05 - reviewed chart, no previous echo on file - start Bumex 2 mg b.i.d. IV - monitor I&Os and daily weights - trend renal function - TSH elevated, checking T3/ T4 02/06: - T3 / T4 WDL, pt does not remember when she took Synthroid last - Pt denies SOB and CP. RLE 3+ pitting edema - amber hose ordered today - Pending ECHO --> Left ventricular systolic function is severely reduced, estimated at 30-35. - Cardiology consulted 02/07: 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 EF of 30-35% per echo. Most likely secondary to uncontrolled HTN d/t medication non-compliance. Her CXR shows pleural effusions. Her pBNP is >41722. Agree with IV diuresis at this time, but urine output has been poor. Have discussed with renal and will begin lasix drip at 1mg. Will place fluid restriction. Will need accurate intake and output. Currently on coreg 3.125 mg BID and will uptitrate as tolerated. No ARB/ARNI or SGLT-2 at this time in setting of GARRISON/CKD. -->Will continue with tx, -Lasix gtt has since been discontinued. Increase bumex administration to 2mg IV BID. Pt continues to deny SOB and CP, she reports that she feels a lot more swollen. 02/08: -Pt continues to deny SOB and CP but reports still being swollen in her RUE and RLE. 02/09: Did well with dialysis 02/08, scheduled again today, to [facility] afterwards (2) Diabetes: Qualifiers: Diabetes mellitus type: type 2 Diabetes mellitus retirement insulin use: without retirement use Diabetes mellitus complication status: with kidney complications Diabetes mellitus complication detail: with chronic kidney disease Chronic kidney disease stage: unspecified stage Qualified Code(s): E11.22 - Type 2 diabetes mellitus with diabetic chronic kidney disease Code(s): E11.9 - Type 2 diabetes mellitus without complications Status: Chronic Assessment and Plan: Patient has a history of type 2 diabetes.? However she has been off of her medications for the past 2 years since 2022.? She has not followed with any providers since 2022.? Diabetes complicated by previous diabetic foot infection requiring a left BKA in 2022. 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 Previously within normal limits in August of 2022.? Will check T3/T4. 02/06: T3/T4 WDL, pt has not been taking Synthroid, she cannot remember when she took it last. 02/07: Continue taking Synthroid (4) Hypertension: Qualifiers: Hypertension type: primary hypertension Qualified Code(s): I10 - Essential (primary) hypertension Code(s): I10 - Essential (primary) hypertension Status: Acute Assessment and Plan: - chronic, untreated for the past 2 years. Arrived significantly hypertensive to [facility], BP 218/115. Currently 179/79. - start Coreg 3.125 mg b.i.d., patient was previously on same medication as well as hydralazine 50 mg q.6. Will hold off on starting hydralazine PO as we are trialing Bumex IV. hydralazine p.r.n. for BP greater than 180/90 - monitor 02/06: - potentially re-start PO hydral pending BPs 02/07: -Continue to hold hydral due to starting lasix gtt, and now TID bumex. Current BP stable, continue to monitor. 02/08: Starting pt back on her home dose hydral q6 today due to high pressures after getting back to her room, 180/90's. 02/09: BP 158/65 (5) Anemia: Qualifiers: Anemia type: due to chronic kidney disease Chronic kidney disease stage: unspecified stage Qualified Code(s): N18.9 - Chronic kidney disease, unspecified; D63.1 - Anemia in chronic kidney disease Code(s): D64.9 - Anemia, unspecified Status: Acute Assessment and Plan: Patient has history of anemia, likely secondary to CKD. Hemoglobin 10.6 upon admission. Previously 7.2 upon discharge on 09/27/2022. - check iron, TIBC, ferritin, B12, folic acid, and TSH - transfuse if <7 02/06: -Continue with daily CBC -Iron % sat 7L, will give Venofer and start on orals upon discharge -Recheck iron % tomorrow 02/07: -Iron % exceedingly high due to recent venofer admin -Continue to check daily CBC -Likely d/c with oral iron (6) Acute kidney injury: Code(s): N17.9 - Acute kidney failure, unspecified Status: Acute Assessment and Plan: Neph following, daily labs Renal US: IMPRESSION: Right kidney is unremarkable. Left kidney is not visualized. 02/07: Plan for HD catheter placement tomorrow, NPO at midnight. 02/08: Pt dialyzed today, continue to trend labs 02/09: I/O -1830 last 24 hours Subjective Date/time seen: 02/09/25 08:33 Interval history: First dialysis treatment 02/08. Tolerated well. Tolerated diet. Denied chest pain or shortness of breath. Swelling down a little. Denied GI or difficulties. Review of Systems Review of Systems: All systems reviewed & are unremarkable except as noted in HPI and below Exam Narrative: HEENT: PERRL, sclerae nonicteric, pharyngeal mucosa pink and intact NECK: No JVD, adenopathy, or thyromegaly CHEST: Clear to auscultation. Normal effort. HEART: NL S1/S2, regular, no murmur ABDOMEN: BS+, soft, nontender, no mass, no bruits EXTREMITIES: No cyanosis, edema, or clubbing NEUROLOGIC: CN intact and symmetric to inspection MUSCULOSKELETAL: Tone and strength symmetric, left BKA PSYCH: Alert. Oriented to person, place, and time Objective Data Vital Signs Vital Signs: Vital Signs - 24 hr 02/08/25 11:05 02/08/25 11:20 02/08/25 11:35 Temperature 97.3 F L Pulse Rate 69 70 70 Respiratory Rate 11 L 14 12 Blood Pressure 149/81 H 162/82 H 157/89 H Pulse Oximetry 98 95 94 Oxygen Delivery Simple Face Mask Room Air Room Air Oxygen Flow Rate 8 02/08/25 11:44 02/08/25 12:02 02/08/25 12:15 Temperature Pulse Rate 72 74 73 Respiratory Rate 14 Blood Pressure 166/91 H Pulse Oximetry 97 Oxygen Delivery Room Air Oxygen Flow Rate 02/08/25 12:45 02/08/25 12:55 02/08/25 13:04 Temperature 97.8 F 97.7 F Pulse Rate 74 75 75 Respiratory Rate 20 16 Blood Pressure 183/85 H 177/93 H 178/89 H Pulse Oximetry 98 97 Oxygen Delivery Oxygen Flow Rate 02/08/25 13:17 02/08/25 13:30 02/08/25 13:45 Temperature Pulse Rate 77 79 80 Respiratory Rate Blood Pressure 184/93 H 186/93 H 192/95 H Pulse Oximetry Oxygen Delivery Oxygen Flow Rate 02/08/25 14:00 02/08/25 14:00 02/08/25 14:15 Temperature Pulse Rate 80 79 81 Respiratory Rate Blood Pressure 192/92 H 200/95 H Pulse Oximetry Oxygen Delivery Oxygen Flow Rate 02/08/25 14:30 02/08/25 14:45 02/08/25 15:00 Temperature Pulse Rate 81 81 81 Respiratory Rate Blood Pressure 191/93 H 191/91 H 189/92 H Pulse Oximetry Oxygen Delivery Oxygen Flow Rate 02/08/25 15:15 02/08/25 15:30 02/08/25 15:45 Temperature Pulse Rate 81 79 78 Respiratory Rate Blood Pressure 181/91 H 186/92 H 181/93 H Pulse Oximetry Oxygen Delivery Oxygen Flow Rate 02/08/25 16:00 02/08/25 16:00 02/08/25 16:05 Temperature Pulse Rate 79 79 Respiratory Rate Blood Pressure 185/92 H Pulse Oximetry Oxygen Delivery Room Air Oxygen Flow Rate 02/08/25 16:11 02/08/25 16:35 02/08/25 18:00 Temperature 97.7 F Pulse Rate 78 84 Respiratory Rate 16 Blood Pressure 188/90 H 169/79 H Pulse Oximetry 97 Oxygen Delivery Oxygen Flow Rate 02/08/25 20:00 02/08/25 20:00 02/08/25 20:43 Temperature 98.3 F Pulse Rate 85 86 85 Respiratory Rate 18 Blood Pressure 175/72 H Pulse Oximetry 95 Oxygen Delivery Oxygen Flow Rate 02/08/25 22:00 02/09/25 00:00 02/09/25 00:00 Temperature 98.3 F Pulse Rate 84 82 82 Respiratory Rate 17 Blood Pressure 175/74 H Pulse Oximetry 96 Oxygen Delivery Oxygen Flow Rate 02/09/25 02:00 02/09/25 03:54 02/09/25 04:00 Temperature 98.5 F Pulse Rate 82 82 82 Respiratory Rate 17 Blood Pressure 152/71 H Pulse Oximetry 94 Oxygen Delivery Oxygen Flow Rate 02/09/25 06:00 02/09/25 08:09 Temperature 97.9 F Pulse Rate 81 81 Respiratory Rate 20 Blood Pressure 158/65 H Pulse Oximetry 94 Oxygen Delivery Oxygen Flow Rate Intake/Output Intake/Output: Intake & Output 02/06/25 02/07/25 02/08/25 02/09/25 23:59 23:59 23:59 23:59 Intake Total 1807.8 860 1980 640 Output Total 540 1201 4500 500 Balance 1267.8 -115 -6409 140 Meds/Results Medications: Active Medications Generic Name Dose Route Start Last Admin Trade Name Freq PRN Reason Stop Dose Admin Acetaminophen 650 mg 02/05/25 20:41 02/08/25 21:04 Acetaminophen 325 Mg Tablet PO 650 mg Q4H PRN Administration Mild Pain (1-3) or Fever Hydrocodone Bitart/Acetaminophen 1 tab 02/08/25 11:49 Hydrocodone/Acetaminophen (*Crx) 5-325 Mg Tablet PO Q4H PRN Pain Rated 4-6 Bumetanide 2 mg 02/07/25 09:00 02/08/25 17:06 Bumetanide Inj 1 Mg/4 Ml Vial IV PUSH Not Given TID MARGUERITE Carvedilol 3.125 mg 02/05/25 21:00 02/08/25 20:43 Carvedilol 3.125 Mg Tablet PO 3.125 mg Q12HR MARGUERITE Administration Dextrose 12.5 gm 02/05/25 21:36 Dextrose 50% 25 Gm/50 Ml Syringe IV PUSH PRN PRN Hypoglycemia Protocol Epoetin Sergio-epbx 10,000 units 02/09/25 18:00 Epoetin Sergio-Epbx 10,000 Units/Ml Vial IV PUSH 02/09/25 18:01 ONCE ONE Glucagon 1 mg 02/05/25 21:36 Glucagon For Inj 1 Mg Vial IM PRN PRN Hypoglycemia Protocol Glucose 15 gm 02/05/25 21:36 Glucose Oral Gel 15 Gm Of Glucse In 37.5 Gm Tube PO PRN PRN Hypoglycemia Protocol Hydralazine HCl 10 mg 02/05/25 20:41 Hydralazine Hcl 20 Mg/Ml Vial IV PUSH Q4H PRN Blood Pressure - High, >180/90 Hydralazine HCl 50 mg 02/08/25 18:00 02/09/25 06:37 Hydralazine Hcl 50 Mg Tablet PO 50 mg Q6HR MARGUERITE Administration Dextrose 1,000 mls @ 100 mls/hr 02/05/25 21:36 Dextrose 5% 1,000 Ml IVPB PRN PRN Hypoglycemia Protocol Albumin Human 50 mls @ 999 mls/hr 02/09/25 06:57 Albutein IVPB 03/11/25 06:56 Q10M PRN HYPOTENSION Insulin Aspart 4 - 8 units 02/06/25 08:00 02/09/25 07:55 Insulin Aspart (*Bkc) 100 Units/Ml SUB-Q Not Given TIDWM MARGUERITE Protocol Insulin Aspart 2 - 4 units 02/05/25 21:45 02/08/25 20:48 Insulin Aspart (*Bkc) 100 Units/Ml SUB-Q Not Given HS [facility] Protocol Metolazone 5 mg 02/07/25 09:00 02/08/25 12:16 Metolazone 5 Mg Tablet PO 5 mg QAM MARGUERITE Administration Morphine Sulfate 2 mg 02/05/25 21:29 02/06/25 13:35 Morphine Sulfate (*Crx) 4 Mg/Ml Inj IV PUSH 2 mg Q4H PRN Administration Pain Rated 7-10 Ondansetron HCl 4 mg 02/05/25 20:41 Ondansetron Inj 4 Mg/2 Ml Vial IV PUSH Q6H PRN Nausea And Vomiting Oxycodone HCl 5 mg 02/08/25 11:08 Oxycodone Hcl (*Crx) 5 Mg Tab Ir PO Q6H PRN Pain Rated 7-10 Radiology Results: ITS Impressions Renal Ultrasound 02/06/25 17:09 IMPRESSION: Right kidney is unremarkable. Left kidney is not visualized. Chest X-Ray 02/08/25 11:41 IMPRESSION: 1. Likely tunneled large-bore dual-lumen] central venous catheter with distal tip in the midsuperior vena cava. 2. Pleural effusions with associated bibasilar atelectasis and/or pneumonia. Labs Labs: Laboratory Results - last 24 hr 02/07/25 02/08/25 02/08/25 05:06 08:58 11:12 WBC RBC Hgb Hct MCV MCH MCHC RDW Plt Count MPV Immature Gran % (Auto) Neut % (Auto) Lymph % (Auto) [place] % (Auto) Eos % (Auto) Baso % (Auto) Lymph # (Auto) [place] # (Auto) Eos # (Auto) Baso # (Auto) Abs Immat Gran (auto) Absolute Neuts (auto) Absolute Nucleated RBC Band Neutrophils % Nucleated RBC % Platelet Estimate Hypochromasia Poikilocytosis Anisocytosis Schistocytes Sodium Potassium Chloride Carbon Dioxide Anion Gap BUN Creatinine Estim Creat Clear Calc Estimated GFR Glucose POC Capillary Glucose 81 80 Calcium Total Bilirubin AST ALT Alkaline Phosphatase Total Protein Total Protein (PEP) 5.8 L Albumin Albumin (PEP) 2.5 L Globulin (PEP) 3.3 Albumin/Globulin Ratio 0.8 Kbiab-7-Dfqhmsvek 0.4 Hzivy-9-Ryrvgpzpt 0.8 Beta Globulins 1.1 Gamma Globulins 1.0 PEP Comment Comment Pr Electrophoresis MSpike Not observed c-ANCA Antibody <1:20 Atypical p-ANCA <1:20 p-ANCA Antibody <1:20 Double Strand DNA Ab 1 02/08/25 02/08/25 02/09/25 16:45 20:44 04:22 WBC 4.1 L RBC 4.05 L Hgb 9.6 L Hct 30.5 L MCV 75.3 L MCH 23.7 L MCHC 31.5 L RDW 20.8 H Plt Count 471 H MPV 10.5 H Immature Gran % (Auto) 0.2 Neut % (Auto) 92.0 H Lymph % (Auto) 5.1 L [place] % (Auto) 2.7 Eos % (Auto) 0.0 Baso % (Auto) 0.0 L Lymph # (Auto) 0.21 L [place] # (Auto) 0.1 Eos # (Auto) 0.0 Baso # (Auto) 0.0 Abs Immat Gran (auto) 0.01 Absolute Neuts (auto) 3.8 Absolute Nucleated RBC 0.000 Band Neutrophils % Not Reportable Nucleated RBC % 0.0 Platelet Estimate Slightly increased Hypochromasia 1+ Poikilocytosis 1+ Anisocytosis 2+ Schistocytes Rare Sodium 132 L Potassium 4.2 Chloride 102 Carbon Dioxide 15 L Anion Gap 15 H BUN 65 H D Creatinine 8.07 H Estim Creat Clear Calc 11 Estimated GFR 5 L Glucose 171 H POC Capillary Glucose 140 H 183 H Calcium 6.4 L Total Bilirubin 0.5 AST 24 ALT 21 Alkaline Phosphatase 115 Total Protein 5.9 L Total Protein (PEP) Albumin 2.8 L Albumin (PEP) Globulin (PEP) Albumin/Globulin Ratio Xzvtq-0-Wycaxermp Ekdlg-9-Onxfifqbs Beta Globulins Gamma Globulins PEP Comment Pr Electrophoresis MSpike c-ANCA Antibody Atypical p-ANCA p-ANCA Antibody Double Strand DNA Ab 02/09/25 06:44 WBC RBC Hgb Hct MCV MCH MCHC RDW Plt Count MPV Immature Gran % (Auto) Neut % (Auto) Lymph % (Auto) [place] % (Auto) Eos % (Auto) Baso % (Auto) Lymph # (Auto) [place] # (Auto) Eos # (Auto) Baso # (Auto) Abs Immat Gran (auto) Absolute Neuts (auto) Absolute Nucleated RBC Band Neutrophils % Nucleated RBC % Platelet Estimate Hypochromasia Poikilocytosis Anisocytosis Schistocytes Sodium Potassium Chloride Carbon Dioxide Anion Gap BUN Creatinine Estim Creat Clear Calc Estimated GFR Glucose POC Capillary Glucose 161 H Calcium Total Bilirubin AST ALT Alkaline Phosphatase Total Protein Total Protein (PEP) Albumin Albumin (PEP) Globulin (PEP) Albumin/Globulin Ratio Yhafk-8-Qgwcgvvkd Mbghh-3-Glxnlnidq Beta Globulins Gamma Globulins PEP Comment Pr Electrophoresis MSpike c-ANCA Antibody Atypical p-ANCA p-ANCA Antibody Double Strand DNA Ab
--- NOTE | 2025-02-09 10:45 | P.PNCA_ITS ---
Progress Note: A&P Assessment and Plan (1) CHF (congestive heart failure): Qualifiers: Heart failure type: unspecified Heart failure chronicity: acute Qualified Code(s): I50.9 - Heart failure, unspecified Code(s): I50.9 - Heart failure, unspecified Status: Acute (2) Hypertension: Qualifiers: Hypertension type: primary hypertension Qualified Code(s): I10 - Essential (primary) hypertension Code(s): I10 - Essential (primary) hypertension Status: Acute (3) Diabetes: Qualifiers: Diabetes mellitus type: type 2 Diabetes mellitus care home insulin use: without buttermilk drier operator use Diabetes mellitus complication status: with kidney complications Diabetes mellitus complication detail: with chronic kidney disease Chronic kidney disease stage: unspecified stage Qualified Code(s): E11.22 - Type 2 diabetes mellitus with diabetic chronic kidney disease Code(s): E11.9 - Type 2 diabetes mellitus without complications Status: Chronic (4) Acute kidney injury: Code(s): N17.9 - Acute kidney failure, unspecified Status: Acute Plan 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 EF of 30-35% per echo. Most likely secondary to uncontrolled HTN d/t medication non-compliance. -initiated on renal replacement therapy with hemodialysis which is helping with volume status. Diuresis with bumetanide managed by Nephrology. -increase carvedilol dose to 12.5 mg p.o. b.i.d. with holding parameters. Continue hydralazine. No ARB/ARNI or SGLT-2 at this time in setting of GARRISON/CKD. -LV systolic dysfunction: Unclear if ischemic vs non-ischemic, likely secondary to uncontrolled HTN. Will need ischemic eval as an outpatient. Life vest prior to discharge. -management other medical problems as per primary team. 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 Secondary to osteomyelitis and poorly controlled diabetes. Treatment strategies discussed with the patient. -consider evaluation for sleep apnea as an outpatient. -emphasize importance of medication compliance and follow-up. -cardiology follow-up of hospital discharge. Subjective Date/time seen: 02/09/25 10:45 Interval history: First dialysis treatment 02/08. Tolerated well. Tolerated diet. Denied chest pain or shortness of breath. Swelling down a little. Denied GI or difficulties. 02/09/2025-patient reports improvement in dyspnea. No chest pain. She is in sinus rhythm on telemetry. Underwent hemo dialysis yesterday. Exam Narrative: PHYSICAL EXAMINATION: GENERAL: Obese, Alert, oriented, no acute distress MENTAL STATUS: affect appropriate to mood EYES: Extraocular movements intact, no pallor EARS: External ears appear normal, hearing grossly normal NOSE: Normal and patent, no discharge MOUTH: Mucous membranes moist, tongue normal NECK: Supple, no JVD CHEST: Good respiratory effort; scattered crackles at base HEART: Normal rate, regular rhythm, normal S1 and S2, pansystolic murmur left sternal border and apex ABDOMEN: Soft, nontender NEUROLOGICAL: Alert, oriented, normal speech, no gross motor deficits MUSCULOSKELETAL: No major deformity, left BKA EXTREMITIES: No pedal edema, no clubbing, no cyanosis SKIN: no rash on the exposed area, no cyanosis PSYCHIATRIC: Normal mood, appropriate affect Objective Data Vital Signs Vital Signs: Vital Signs - 24 hr 02/08/25 11:05 02/08/25 11:20 02/08/25 11:35 Temperature 36.3 C L Pulse Rate 69 70 70 Respiratory Rate 11 L 14 12 Blood Pressure 149/81 H 162/82 H 157/89 H Pulse Oximetry 98 95 94 Oxygen Delivery Simple Face Mask Room Air Room Air Oxygen Flow Rate 8 02/08/25 11:44 02/08/25 12:02 02/08/25 12:15 Temperature Pulse Rate 72 74 73 Respiratory Rate 14 Blood Pressure 166/91 H Pulse Oximetry 97 Oxygen Delivery Room Air Oxygen Flow Rate 02/08/25 12:45 02/08/25 12:55 02/08/25 13:04 Temperature 36.6 C 36.5 C Pulse Rate 74 75 75 Respiratory Rate 20 16 Blood Pressure 183/85 H 177/93 H 178/89 H Pulse Oximetry 98 97 Oxygen Delivery Oxygen Flow Rate 02/08/25 13:17 02/08/25 13:30 02/08/25 13:45 Temperature Pulse Rate 77 79 80 Respiratory Rate Blood Pressure 184/93 H 186/93 H 192/95 H Pulse Oximetry Oxygen Delivery Oxygen Flow Rate 02/08/25 14:00 02/08/25 14:00 02/08/25 14:15 Temperature Pulse Rate 80 79 81 Respiratory Rate Blood Pressure 192/92 H 200/95 H Pulse Oximetry Oxygen Delivery Oxygen Flow Rate 02/08/25 14:30 02/08/25 14:45 02/08/25 15:00 Temperature Pulse Rate 81 81 81 Respiratory Rate Blood Pressure 191/93 H 191/91 H 189/92 H Pulse Oximetry Oxygen Delivery Oxygen Flow Rate 02/08/25 15:15 02/08/25 15:30 02/08/25 15:45 Temperature Pulse Rate 81 79 78 Respiratory Rate Blood Pressure 181/91 H 186/92 H 181/93 H Pulse Oximetry Oxygen Delivery Oxygen Flow Rate 02/08/25 16:00 02/08/25 16:00 02/08/25 16:05 Temperature Pulse Rate 79 79 Respiratory Rate Blood Pressure 185/92 H Pulse Oximetry Oxygen Delivery Room Air Oxygen Flow Rate 02/08/25 16:11 02/08/25 16:35 02/08/25 18:00 Temperature 36.5 C Pulse Rate 78 84 Respiratory Rate 16 Blood Pressure 188/90 H 169/79 H Pulse Oximetry 97 Oxygen Delivery Oxygen Flow Rate 02/08/25 20:00 02/08/25 20:00 02/08/25 20:43 Temperature 36.8 C Pulse Rate 85 86 85 Respiratory Rate 18 Blood Pressure 175/72 H Pulse Oximetry 95 Oxygen Delivery Oxygen Flow Rate 02/08/25 22:00 02/09/25 00:00 02/09/25 00:00 Temperature 36.8 C Pulse Rate 84 82 82 Respiratory Rate 17 Blood Pressure 175/74 H Pulse Oximetry 96 Oxygen Delivery Oxygen Flow Rate 02/09/25 02:00 02/09/25 03:54 02/09/25 04:00 Temperature 36.9 C Pulse Rate 82 82 82 Respiratory Rate 17 Blood Pressure 152/71 H Pulse Oximetry 94 Oxygen Delivery Oxygen Flow Rate 02/09/25 06:00 02/09/25 08:09 Temperature 36.6 C Pulse Rate 81 81 Respiratory Rate 20 Blood Pressure 158/65 H Pulse Oximetry 94 Oxygen Delivery Oxygen Flow Rate Intake/Output Intake/Output: Intake & Output 02/06/25 02/07/25 02/08/25 02/09/25 23:59 23:59 23:59 23:59 Intake Total 1807.8 860 1980 880 Output Total 540 1201 4500 500 Balance 8457.8 -475 -7758 380 Meds/Results Medications: Active Medications Generic Name Dose Route Start Last Admin Trade Name Freq PRN Reason Stop Dose Admin Acetaminophen 650 mg 02/05/25 20:41 10/17/25 21:04 Acetaminophen 325 Mg Tablet PO 650 mg Q4H PRN Administration Mild Pain (1-3) or Fever Hydrocodone Bitart/Acetaminophen 1 tab 02/08/25 11:49 Hydrocodone/Acetaminophen (*Crx) 5-325 Mg Tablet PO Q4H PRN Pain Rated 4-6 Bumetanide 2 mg 02/07/25 09:00 02/08/25 17:06 Bumetanide Inj 1 Mg/4 Ml Vial IV PUSH Not Given TID MARGUERITE Carvedilol 3.125 mg 02/05/25 21:00 02/08/25 20:43 Carvedilol 3.125 Mg Tablet PO 3.125 mg Q12HR MARGUERITE Administration Dextrose 12.5 gm 02/05/25 21:36 Dextrose 50% 25 Gm/50 Ml Syringe IV PUSH PRN PRN Hypoglycemia Protocol Epoetin Sergio-epbx 10,000 units 02/09/25 18:00 Epoetin Sergio-Epbx 10,000 Units/Ml Vial IV PUSH 02/09/25 18:01 ONCE ONE Glucagon 1 mg 02/05/25 21:36 Glucagon For Inj 1 Mg Vial IM PRN PRN Hypoglycemia Protocol Glucose 15 gm 02/05/25 21:36 Glucose Oral Gel 15 Gm Of Glucse In 37.5 Gm Tube PO PRN PRN Hypoglycemia Protocol Hydralazine HCl 10 mg 02/05/25 20:41 Hydralazine Hcl 20 Mg/Ml Vial IV PUSH Q4H PRN Blood Pressure - High, >180/90 Hydralazine HCl 50 mg 02/08/25 18:00 02/09/25 06:37 Hydralazine Hcl 50 Mg Tablet PO 50 mg Q6HR MARGUERITE Administration Dextrose 1,000 mls @ 100 mls/hr 02/05/25 21:36 Dextrose 5% 1,000 Ml IVPB PRN PRN Hypoglycemia Protocol Albumin Human 50 mls @ 999 mls/hr 02/09/25 06:57 Albutein IVPB 03/11/25 06:56 Q10M PRN HYPOTENSION Insulin Aspart 4 - 8 units 02/06/25 08:00 02/09/25 07:55 Insulin Aspart (*Bkc) 100 Units/Ml SUB-Q Not Given TIDWM MARGUERITE Protocol Insulin Aspart 2 - 4 units 02/05/25 21:45 02/08/25 20:48 Insulin Aspart (*Bkc) 100 Units/Ml SUB-Q Not Given HS [facility] Protocol Metolazone 5 mg 02/07/25 09:00 02/08/25 12:16 Metolazone 5 Mg Tablet PO 5 mg QAM MARGUERITE Administration Morphine Sulfate 2 mg 02/05/25 21:29 02/06/25 13:35 Morphine Sulfate (*Crx) 4 Mg/Ml Inj IV PUSH 2 mg Q4H PRN Administration Pain Rated 7-10 Ondansetron HCl 4 mg 02/05/25 20:41 Ondansetron Inj 4 Mg/2 Ml Vial IV PUSH Q6H PRN Nausea And Vomiting Oxycodone HCl 5 mg 02/08/25 11:08 Oxycodone Hcl (*Crx) 5 Mg Tab Ir PO Q6H PRN Pain Rated 7-10 Radiology Results: ITS Impressions Renal Ultrasound 02/06/25 17:09 IMPRESSION: Right kidney is unremarkable. Left kidney is not visualized. Chest X-Ray 02/08/25 11:41 IMPRESSION: 1. Likely tunneled large-bore dual-lumen] central venous catheter with distal tip in the midsuperior vena cava. 2. Pleural effusions with associated bibasilar atelectasis and/or pneumonia. Labs Labs: Laboratory Results - last 24 hr 02/07/25 02/08/25 02/08/25 05:06 11:12 16:45 WBC RBC Hgb Hct MCV MCH MCHC RDW Plt Count MPV Immature Gran % (Auto) Neut % (Auto) Lymph % (Auto) [place] % (Auto) Eos % (Auto) Baso % (Auto) Lymph # (Auto) [place] # (Auto) Eos # (Auto) Baso # (Auto) Abs Immat Gran (auto) Absolute Neuts (auto) Absolute Nucleated RBC Band Neutrophils % Nucleated RBC % Platelet Estimate Hypochromasia Poikilocytosis Anisocytosis Schistocytes Sodium Potassium Chloride Carbon Dioxide Anion Gap BUN Creatinine Estim Creat Clear Calc Estimated GFR Glucose POC Capillary Glucose 80 140 H Calcium Total Bilirubin AST ALT Alkaline Phosphatase Total Protein Total Protein (PEP) 5.8 L Albumin Albumin (PEP) 2.5 L Globulin (PEP) 3.3 Albumin/Globulin Ratio 0.8 Qrnxt-4-Qiwxiiwlc 0.4 Qdqtj-7-Kkvzfaioy 0.8 Beta Globulins 1.1 Gamma Globulins 1.0 PEP Comment Comment Pr Electrophoresis MSpike Not observed c-ANCA Antibody <1:20 Atypical p-ANCA <1:20 p-ANCA Antibody <1:20 Double Strand DNA Ab 1 02/08/25 02/09/25 02/09/25 20:44 04:22 06:44 WBC 4.1 L RBC 4.05 L Hgb 9.6 L Hct 30.5 L MCV 75.3 L MCH 23.7 L MCHC 31.5 L RDW 20.8 H Plt Count 471 H MPV 10.5 H Immature Gran % (Auto) 0.2 Neut % (Auto) 92.0 H Lymph % (Auto) 5.1 L [place] % (Auto) 2.7 Eos % (Auto) 0.0 Baso % (Auto) 0.0 L Lymph # (Auto) 0.21 L [place] # (Auto) 0.1 Eos # (Auto) 0.0 Baso # (Auto) 0.0 Abs Immat Gran (auto) 0.01 Absolute Neuts (auto) 3.8 Absolute Nucleated RBC 0.000 Band Neutrophils % Not Reportable Nucleated RBC % 0.0 Platelet Estimate Slightly increased Hypochromasia 1+ Poikilocytosis 1+ Anisocytosis 2+ Schistocytes Rare Sodium 132 L Potassium 4.2 Chloride 102 Carbon Dioxide 15 L Anion Gap 15 H BUN 65 H D Creatinine 8.07 H Estim Creat Clear Calc 11 Estimated GFR 5 L Glucose 171 H POC Capillary Glucose 183 H 161 H Calcium 6.4 L Total Bilirubin 0.5 AST 24 ALT 21 Alkaline Phosphatase 115 Total Protein 5.9 L Total Protein (PEP) Albumin 2.8 L Albumin (PEP) Globulin (PEP) Albumin/Globulin Ratio Mlsvs-4-Tinqxrvck Mkfss-8-Cqutxbtjp Beta Globulins Gamma Globulins PEP Comment Pr Electrophoresis MSpike c-ANCA Antibody Atypical p-ANCA p-ANCA Antibody Double Strand DNA Ab
[2025-02-09] MEDS: BUMETANIDE INJ 1 MG/4 ML VIAL 2 MG IV PUSH ×2 (10:54→17:10)
[2025-02-09] MEDS: EPOETIN ALFA-EPBX 10,000 UNITS/ML VIAL 10000 UNITS IV PUSH (12:59)
[2025-02-09] MEDS: SODIUM CHLORIDE 0.9% IV 1,000 ML 999 ML IV CONT (12:59)
--- NOTE | 2025-02-09 13:01 | P.PNNP_ITS ---
Progress Note: A&P Assessment and Plan (1) Acute kidney injury: Code(s): N17.9 - Acute kidney failure, unspecified Status: Acute Assessment and Plan: * as noted by admission labs (creatinine 10.26mg/dL) * unclear acuity versus chronicity of this issue (see #2) * complicated/associated with volume overload/anasarca and metabolic acidosis * etiology not clear... 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 * will need better BP control first * follow trend of repeat labs and UOP (2) Stage 3b chronic kidney disease: Code(s): N18.32 - Chronic kidney disease, stage 3b Status: Chronic Assessment and Plan: * creatinine down to 1.5mg/dL on September 2022 discharge * unclear if renal function recovered to normal (creatinine did go down as low as 0.7mg/dL during August/September 2022 hospitalization) * multiple risk factors for CKD: * hypertension * diabetes * vascular disease * recently discovered cardiomyopathy * other(?) (3) Volume overload: Code(s): E87.70 - Fluid overload, unspecified Status: Acute Assessment and Plan: * as noted by clinical exam (anasarca) * multifactorial etiology: * renal dysfunction * nephrotic range proteinuria/nephrotic syndrome * cardiomyopathy * vascular disease * no real improvement with diuretics * however, still making some urine with use of bumex/metolazone * continue fluid removal with HD/DUF as tolerated (4) Metabolic acidosis: Code(s): E87.20 - Acidosis, unspecified Status: Acute Assessment and Plan: * resolving * quite severe on presentation (CO2 < 5) * presumably due to GARRISON/renal dysfunction * should correct/stabilize with HD as well (5) Cardiomyopathy: Code(s): I42.9 - Cardiomyopathy, unspecified Status: Acute Assessment and Plan: * acute versus chronic? * ischemic versus non-ischemic? * Echo results noted (02/06): * left ventricular systolic function is severely reduced, estimated at 30 - 35% * left ventricular diastolic function is grade I diastolic dysfunction * mild to moderate mitral valve regurgitation * mild to moderate tricuspid valve regurgitation * moderate pulmonary hypertension, estimated pulmonary arterial systolic pressure is 47 mmHg * mild pulmonic regurgitation * Cardiology following * GMDT maybe somewhat limited by her severe renal dysfunction (6) Hypertension: Qualifiers: Hypertension type: primary hypertension Qualified Code(s): I10 - Essential (primary) hypertension Code(s): I10 - Essential (primary) hypertension Status: Acute Assessment and Plan: * quite elevated on ER presentation (systolic BP > 200) * still fluctuating but better control in general * on oral hydralazine * titrate carvedilol as tolerated * dialysis/fluid removal should/may help as well * follow trend of hemodynamics (7) Anemia: Qualifiers: Anemia type: due to chronic kidney disease Chronic kidney disease stage: unspecified stage Qualified Code(s): N18.9 - Chronic kidney disease, unspecified; D63.1 - Anemia in chronic kidney disease Code(s): D64.9 - Anemia, unspecified Status: Acute Assessment and Plan: * at least partly related to renal dysfunction * anemia studies demonstrate iron deficiency * getting IV iron * start Epogen with HD once BP better * follow trend of H/H (8) Diabetes: Qualifiers: Diabetes mellitus type: type 2 Diabetes mellitus snf insulin use: without buttermaker helper use Diabetes mellitus complication status: with kidney complications Diabetes mellitus complication detail: with chronic kidney disease Chronic kidney disease stage: unspecified stage Qualified Code(s): E 11.22 - Type 2 diabetes mellitus with diabetic chronic kidney disease Code(s): E11.9 - Type 2 diabetes mellitus without complications Status: Chronic Assessment and Plan: * follow accu-cheks * glycemic control per hospitalist Will continue to follow. L Subjective Date/time seen: 02/09/25 13:01 Interval history: Follow-up for acute kidney injury/acute renal failure on chronic kidney disease?) and anasarca. Tolerated dialysis treatment yesterday and tolerating dialysis treatment at the time of my visit (seen on HD at 12:50pm); some mild improvement in swelling/edema at this time (I am able move hands/fingers more easily since they are less swollen); no other acute issues or events overnight or earlier this morning. Exam 2 Narrative: General: mildly anxious but WD/WN female in NAD Heart: normal S1 and S2; no rub Lungs: decreased at the bases Abdomen: obese but soft, nontender, nondistended, positive bowel sounds Extremities: no cyanosis or clubbing; 2 - 3+ edema in RLE and BUEs; s/p left BKA Skin: warm and intact Objective Data Vital Signs Vital Signs: Vital Signs Temp Pulse Resp BP Pulse Ox O2 Del Method 02/09/25 13:00 85 183/86 H 02/09/25 12:45 85 181/87 H 02/09/25 12:30 86 182/85 H 02/09/25 12:15 86 163/86 H 02/09/25 12:00 85 02/09/25 11:58 83 182/84 H 02/09/25 11:50 98.4 F 83 16 124/89 97 02/09/25 11:35 98.2 F 83 20 163/68 H 93 02/09/25 10:53 84 02/09/25 10:00 84 02/09/25 08:09 97.9 F 81 20 158/65 H 94 02/09/25 08:00 83 02/09/25 08:00 Room Air 02/09/25 06:00 81 02/09/25 04:00 82 02/09/25 03:54 98.5 F 82 17 152/71 H 94 02/09/25 02:00 82 02/09/25 00:00 98.3 F 82 17 175/74 H 96 02/09/25 00:00 82 02/08/25 22:00 84 02/08/25 20:43 85 02/08/25 20:00 86 02/08/25 20:00 98.3 F 85 18 175/72 H 95 Intake/Output Intake/Output: Intake & Output 02/06/25 02/07/25 02/08/25 02/09/25 23:59 23:59 23:59 23:59 Intake Total 1807.8 860 1980 1120 Output Total 540 1201 4500 5000 Balance 3997.8 -181 -7510 -2160 Meds/Results Medications: Active Medications Generic Name Dose Route Start Last Admin Trade Name Freq PRN Reason Stop Dose Admin Acetaminophen 650 mg 02/05/25 20:41 02/08/25 21:04 Acetaminophen 325 Mg Tablet PO 650 mg Q4H PRN Administration Mild Pain (1-3) or Fever Hydrocodone Bitart/Acetaminophen 1 tab 02/08/25 11:49 Hydrocodone/Acetaminophen (*Crx) 5-325 Mg Tablet PO Q4H PRN Pain Rated 4-6 Bumetanide 2 mg 02/07/25 09:00 02/09/25 17:10 Bumetanide Inj 1 Mg/4 Ml Vial IV PUSH 2 mg TID MARGUERITE Administration Carvedilol 12.5 mg 02/09/25 21:00 Carvedilol 12.5 Mg Tablet PO Q12HR MARGUERITE Dextrose 12.5 gm 02/05/25 21:36 Dextrose 50% 25 Gm/50 Ml Syringe IV PUSH PRN PRN Hypoglycemia Protocol Glucagon 1 mg 02/05/25 21:36 Glucagon For Inj 1 Mg Vial IM PRN PRN Hypoglycemia Protocol Glucose 15 gm 02/05/25 21:36 Glucose Oral Gel 15 Gm Of Glucse In 37.5 Gm Tube PO PRN PRN Hypoglycemia Protocol Hydralazine HCl 10 mg 02/05/25 20:41 Hydralazine Hcl 20 Mg/Ml Vial IV PUSH Q4H PRN Blood Pressure - High, >180/90 Hydralazine HCl 50 mg 02/08/25 18:00 02/09/25 17:09 Hydralazine Hcl 50 Mg Tablet PO 50 mg Q6HR MARGUERITE Administration Dextrose 1,000 mls @ 100 mls/hr 02/05/25 21:36 Dextrose 5% 1,000 Ml IVPB PRN PRN Hypoglycemia Protocol Albumin Human 50 mls @ 999 mls/hr 02/09/25 06:57 Albutein IVPB 03/11/25 06:56 Q10M PRN HYPOTENSION Insulin Aspart 4 - 8 units 02/06/25 08:00 02/09/25 17:09 Insulin Aspart (*Bkc) 100 Units/Ml SUB-Q 4 units TIDWM MARGUERITE Administration Protocol Insulin Aspart 2 - 4 units 02/05/25 21:45 02/08/25 20:48 Insulin Aspart (*Bkc) 100 Units/Ml SUB-Q Not Given HS MARGUERITE Protocol Metolazone 5 mg 02/07/25 09:00 02/09/25 10:53 Metolazone 5 Mg Tablet PO 5 mg QAM MARGUERITE Administration Morphine Sulfate 2 mg 02/05/25 21:29 02/06/25 13:35 Morphine Sulfate (*Crx) 4 Mg/Ml Inj IV PUSH 2 mg Q4H PRN Administration Pain Rated 7-10 Ondansetron HCl 4 mg 02/05/25 20:41 Ondansetron Inj 4 Mg/2 Ml Vial IV PUSH Q6H PRN Nausea And Vomiting Oxycodone HCl 5 mg 02/08/25 11:08 Oxycodone Hcl (*Crx) 5 Mg Tab Ir PO Q6H PRN Pain Rated 7-10 Radiology Results: ITS Impressions Renal Ultrasound 02/06/25 17:09 IMPRESSION: Right kidney is unremarkable. Left kidney is not visualized. Chest X-Ray 02/08/25 11:41 IMPRESSION: 1. Likely tunneled large-bore dual-lumen] central venous catheter with distal tip in the midsuperior vena cava. 2. Pleural effusions with associated bibasilar atelectasis and/or pneumonia. Labs Labs: Laboratory Tests 02/09/25 04:22 02/09/25 04:22 Calcium 6.4 L Total Bilirubin 0.5 AST 24 ALT 21 Alkaline Phosphatase 115 Total Protein 5.9 L Albumin 2.8 L
[2025-02-09] MEDS: INSULIN ASPART (*BKC) 100 UNITS/ML SUB-Q (17:09)
[2025-02-10] VITALS (12 sets, daily range): BP systolic 148–168; BP diastolic 64–72; PULSE 82–87; RESP 16–18; TEMP 36.4–36.9; O2SAT 94–98
[2025-02-10 05:08] LABS: Hematocrit 29.3 % (37.0-47.0); Hemoglobin 9.2 g/dL (12.0-15.0); Immature Granulocyte Percent A 0.3 % (0-0.5); Lymphocytes Absolute Auto 1.70 K/mm3 (0.9-3.2); Mean Corpuscular HGB Conc 31.4 g/dl (32-36); Mean Corpuscular Hemoglobin 24.0 pg (26-34); Mean Corpuscular Volume 76.5 fl (80-100); Nucleated Red Blood Cells Absolute Auto 0.020 K/mm3 (0.0-0.012); Nucleated Red Blood Cells Perc 0.3 % (0.0-0.2); Platelet Count Result 443 k/mm3 (150-375); Red Blood Count 3.83 M/mm3 (4.2-5.4); White Blood Count 7.3 K/mm3 (4.5-10.0)
[2025-02-10 05:29] LABS: Alanine Aminotransferase 18 U/L (6-35); Albumin Level 2.8 g/dL (3.5-5.1); Alkaline Phosphatase 95 U/L (38-126); Anion Gap 9 mmol/L (4-12); Aspartate Amino Transferase 19 U/L (14-36); Bilirubin,Total 0.3 mg/dL (0.2-1.3); Blood Urea Nitrogen 43 mg/dL (7-17); Calcium 7.3 mg/dL (8.4-10.2); Carbon Dioxide 24 mmol/L (22-30); Chloride 101 mmol/L (98-107); Estimated CRCL calculation 15 ml/min; Estimated Glomerular Filt Rate 8; Glucose 154 mg/dL (65-110); Potassium 3.8 mmol/L (3.4-5.0); Sodium 134 mmol/L (137-145); Total Protein 5.7 g/dL (6.3-8.2)
[2025-02-10] MEDS: BUMETANIDE INJ 1 MG/4 ML VIAL 2 MG IV PUSH ×3 (08:26→17:30)
--- NOTE | 2025-02-10 08:33 | PM.IMPN ---
Progress Note: A&P Assessment and Plan (1) CHF (congestive heart failure): Qualifiers: Heart failure chronicity: acute Heart failure type: unspecified Qualified Code(s): I50.9 - Heart failure, unspecified Code(s): I50.9 - Heart failure, unspecified Status: Acute Assessment and Plan: Patient originally presented for primary complaint of shortness of breath and right lower extremity swelling (history of left BKA).? CXR showed mild CHF.? BNP greater than 30,000. Given new onset renal failure, may be hypervolemia due to acute renal failure/ESRD verses new onset CHF or combination thereof. - BNP greater than 30,000 upon admission on 02/05 - reviewed chart, no previous echo on file - start Bumex 2 mg b.i.d. IV - monitor I&Os and daily weights - trend renal function - TSH elevated, checking T3/ T4 02/06: - T3 / T4 WDL, pt does not remember when she took Synthroid last - Pt denies SOB and CP. RLE 3+ pitting edema - amber hose ordered today - Pending ECHO --> Left ventricular systolic function is severely reduced, estimated at 30-35. - Cardiology consulted 02/07: 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 EF of 30-35% per echo. Most likely secondary to uncontrolled HTN d/t medication non-compliance. Her CXR shows pleural effusions. Her pBNP is >22397. Agree with IV diuresis at this time, but urine output has been poor. Have discussed with renal and will begin lasix drip at 1mg. Will place fluid restriction. Will need accurate intake and output. Currently on coreg 3.125 mg BID and will uptitrate as tolerated. No ARB/ARNI or SGLT-2 at this time in setting of GARRISON/CKD. -->Will continue with tx, -Lasix gtt has since been discontinued. Increase bumex administration to 2mg IV BID. Pt continues to deny SOB and CP, she reports that she feels a lot more swollen. 02/08: -Pt continues to deny SOB and CP but reports still being swollen in her RUE and RLE. 02/09: Did well with dialysis 02/08, scheduled again today, to [facility] afterwards 02/10: Pt on med Only [place] today. Pending neph plan, HD tomorrow. RLE edema improved since I saw her last on 02/08 and denies SOB. She brought to my attention today a spot of erythema to her medial elbow today, no warmth, but also thinks her RUE is more swollen. Ordered US duplex to r/o DVT. (2) Diabetes: Qualifiers: Chronic kidney disease stage: unspecified stage Diabetes mellitus complication detail: with chronic kidney disease Diabetes mellitus complication status: with kidney complications Diabetes mellitus correction insulin use: without correction use Diabetes mellitus type: type 2 Qualified Code(s): E11.22 - Type 2 diabetes mellitus with diabetic chronic kidney disease Code(s): E11.9 - Type 2 diabetes mellitus without complications Status: Chronic Assessment and Plan: Patient has a history of type 2 diabetes.? However she has been off of her medications for the past 2 years since 2022.? She has not followed with any providers since 2022.? Diabetes complicated by previous diabetic foot infection requiring a left BKA in 2022. - hypoglycemia protocol - POC blood glucose ACHS - correct regimen ordered - high dose TIDWM and HS - A1C 8.6% on 02/05/2025 - pharmaceutical sales specialist consulted - dietitian consulted 02/06: Blood sugars have been stable on current regimen 02/07: Blood sugars have been stable on current regimen 02/08: Blood sugar 90 this AM, pt had been NPO for procedure today 02/09: FBS 161 02/10: AM BS 154 today (3) Elevated TSH: Code(s): R79.89 - Other specified abnormal findings of blood chemistry Status: Acute Assessment and Plan: TSH 6.320 on 02/05.? Previously within normal limits in August of 2022.? Will check T3/T4. 02/06: T3/T4 WDL, pt has not been taking Synthroid, she cannot remember when she took it last. 02/07: Continue taking Synthroid (4) Hypertension: Qualifiers: Hypertension type: primary hypertension Qualified Code(s): I10 - Essential (primary) hypertension Code(s): I10 - Essential (primary) hypertension Status: Acute Assessment and Plan: - chronic, untreated for the past 2 years. Arrived significantly hypertensive to [facility], BP 218/115. Currently 179/79. - start Coreg 3.125 mg b.i.d., patient was previously on same medication as well as hydralazine 50 mg q.6. Will hold off on starting hydralazine PO as we are trialing Bumex IV. hydralazine p.r.n. for BP greater than 180/90 - monitor 02/06: - potentially re-start PO hydral pending BPs 02/07: -Continue to hold hydral due to starting lasix gtt, and now TID bumex. Current BP stable, continue to monitor. 02/08: Starting pt back on her home dose hydral q6 today due to high pressures after getting back to her room, 180/90's. 02/09: BP 158/65 02/10: Cards increased coreg to 12.5mg BID, BP today 148/67, continue to monitor (5) Anemia: Qualifiers: Anemia type: due to chronic kidney disease Chronic kidney disease stage: unspecified stage Qualified Code(s): N18.9 - Chronic kidney disease, unspecified; D63.1 - Anemia in chronic kidney disease Code(s): D64.9 - Anemia, unspecified Status: Acute Assessment and Plan: Patient has history of anemia, likely secondary to CKD. Hemoglobin 10.6 upon admission. Previously 7.2 upon discharge on 09/27/2022. - check iron, TIBC, ferritin, B12, folic acid, and TSH - transfuse if <7 02/06: -Continue with daily CBC -Iron % sat 7L, will give Venofer and start on orals upon discharge -Recheck iron % tomorrow 02/07: -Iron % exceedingly high due to recent venofer admin -Continue to check daily CBC -Likely d/c with oral iron (6) Acute kidney injury: Code(s): N17.9 - Acute kidney failure, unspecified Status: Acute Assessment and Plan: Neph following, daily labs Renal US: IMPRESSION: Right kidney is unremarkable. Left kidney is not visualized. 02/07: Plan for HD catheter placement tomorrow, NPO at midnight. 02/08: Pt dialyzed today, continue to trend labs 02/09: I/O -1830 last 24 hours 02/10: Creatinine today 5.83, pending next dialysis tomorrow. -Per pt, renal was discussing plans for possible kidney biopsy on 02/12 (7) Anxiety: Code(s): F41.9 - Anxiety disorder, unspecified Status: Acute Assessment and Plan: Pt reporting an increase / ongoing anxiety since being in the hospital. She reports that she has been rx something in the past for anxiety that she took on a PRN basis and it was non-sedating but she cannot remember the name -Ordered Buspirone 10mg BID PRN for her today Plan Pending HD and kidney biopsy potentially 02/12, monitor volume status, pending US RUE duplex Time Spent With Patient Time: 35 Subjective Date/time seen: 02/10/25 1241 Interval history: Pt continues to deny CP and SOB. Pt reports increased swelling on RUE and with some redness, will order w/u for DVT. RLE edema looking better. Pt also reporting worsening anxiety, will order buspirone. Review of Systems Review of Systems: All systems reviewed & are unremarkable except as noted in HPI and below Exam Const: General: no acute distress and uncomfortable Other: , female, nontoxic appearance HENMT: Face/Nose/Sinus: Normal nares present Mouth: Yes moist mucous membranes and Yes dry mucous membranes Eyes: General: appearance normal, both eyes and all related structures Sclera: sclerae normal Pupils: Equal, round and reactive pupils present EOM: EOMs intact bilaterally Neck: Neck: supple Resp: Effort & Inspection: normal respiratory effort Other: Bilateral lower lungs diminished lung sounds Cardio: Rate: regular rate Rhythm: regular rhythm Other: S1-S2 present without murmur, rub, ectopy GI: Inspection: non-distended Auscultation: abnormal bowel sounds (hypo, all quadrants) Other: Abdomen soft, nondistended, nontender. Skin: General skin exam: normal color and no rashes or lesions noted Other: Small scattered small areas of eschar less than 1 cm to bilateral shoulders, upper extremities, and forehead with no signs of infection. RLE: Normal inspection HD catheter to R subclavian Neuro: Cranial nerves: Yes Equal, round and reactive pupils present Speech: normal speech Sensory Exam: normal sensation Other: A&O x4, generalized weakness Extrem: Other: Left BKA. RLE trace. Thighs symmetric. RUE 1+ pitting edema Psych: Mental Status: mental status grossly normal Affect: normal affect and Anxious affect present Other: Good insight and judgment, very pleasant Objective Data Vital Signs Vital Signs: Vital Signs - 24 hr 02/09/25 10:00 02/09/25 10:53 02/09/25 11:35 Temperature 98.2 F Pulse Rate 84 84 83 Respiratory Rate 20 Blood Pressure 163/68 H Pulse Oximetry 93 Oxygen Delivery 02/09/25 11:50 02/09/25 11:58 02/09/25 12:00 Temperature 98.4 F Pulse Rate 83 83 85 Respiratory Rate 16 Blood Pressure 124/89 182/84 H Pulse Oximetry 97 Oxygen Delivery 02/09/25 12:15 02/09/25 12:30 02/09/25 12:45 Temperature Pulse Rate 86 86 85 Respiratory Rate Blood Pressure 163/86 H 182/85 H 181/87 H Pulse Oximetry Oxygen Delivery 02/09/25 13:00 02/09/25 13:15 02/09/25 13:31 Temperature Pulse Rate 85 87 86 Respiratory Rate Blood Pressure 183/86 H 170/79 H 174/82 H Pulse Oximetry Oxygen Delivery 02/09/25 13:45 02/09/25 14:00 02/09/25 14:15 Temperature Pulse Rate 88 89 90 Respiratory Rate Blood Pressure 176/81 H 180/77 H 190/87 H Pulse Oximetry Oxygen Delivery 02/09/25 14:30 02/09/25 14:45 02/09/25 15:00 Temperature Pulse Rate 89 89 89 Respiratory Rate Blood Pressure 185/84 H 178/87 H 184/87 H Pulse Oximetry Oxygen Delivery 02/09/25 15:15 02/09/25 15:28 02/09/25 15:38 Temperature 98.2 F Pulse Rate 88 89 89 Respiratory Rate 16 Blood Pressure 184/92 H 185/78 H 184/82 H Pulse Oximetry 94 Oxygen Delivery 02/09/25 16:00 02/09/25 18:28 02/09/25 20:00 Temperature 97.7 F Pulse Rate 90 93 Respiratory Rate 18 Blood Pressure 144/64 H Pulse Oximetry 91 Oxygen Delivery Room Air 02/09/25 20:00 02/09/25 20:00 02/09/25 20:25 Temperature 98.5 F Pulse Rate 93 93 93 Respiratory Rate 20 Blood Pressure 153/63 H Pulse Oximetry 92 Oxygen Delivery 02/09/25 23:35 02/10/25 00:00 02/10/25 04:00 Temperature 98.6 F Pulse Rate 88 87 82 Respiratory Rate 16 Blood Pressure 153/79 H Pulse Oximetry 94 Oxygen Delivery 02/10/25 04:00 Temperature 97.8 F Pulse Rate 82 Respiratory Rate 18 Blood Pressure 148/67 H Pulse Oximetry 94 Oxygen Delivery Intake/Output Intake/Output: Intake & Output 02/07/25 02/08/25 02/09/25 02/10/25 23:59 23:59 23:59 23:59 Intake Total 860 1980 1120 400 Output Total 1201 4500 0046 425 [facility] [phone] [id number] Meds/Results Medications: Active Medications Generic Name Dose Route Start Last Admin Trade Name Freq PRN Reason Stop Dose Admin Acetaminophen 650 mg 02/05/25 20:41 02/08/25 21:04 Acetaminophen 325 Mg Tablet PO 650 mg Q4H PRN Administration Mild Pain (1-3) or Fever Hydrocodone Bitart/Acetaminophen 1 tab 02/08/25 11:49 Hydrocodone/Acetaminophen (*Crx) 5-325 Mg Tablet PO Q4H PRN Pain Rated 4-6 Bumetanide 2 mg 02/07/25 09:00 02/09/25 17:10 Bumetanide Inj 1 Mg/4 Ml Vial IV PUSH 2 mg TID MARGUERITE Administration Carvedilol 12.5 mg 02/09/25 21:00 02/09/25 20:25 Carvedilol 12.5 Mg Tablet PO 12.5 mg Q12HR MARGUERITE Administration Dextrose 12.5 gm 02/05/25 21:36 Dextrose 50% 25 Gm/50 Ml Syringe IV PUSH PRN PRN Hypoglycemia Protocol Glucagon 1 mg 02/05/25 21:36 Glucagon For Inj 1 Mg Vial IM PRN PRN Hypoglycemia Protocol Glucose 15 gm 02/05/25 21:36 Glucose Oral Gel 15 Gm Of Glucse In 37.5 Gm Tube PO PRN PRN Hypoglycemia Protocol Hydralazine HCl 10 mg 02/05/25 20:41 Hydralazine Hcl 20 Mg/Ml Vial IV PUSH Q4H PRN Blood Pressure - High, >180/90 Hydralazine HCl 50 mg 02/08/25 18:00 02/10/25 05:42 Hydralazine Hcl 50 Mg Tablet PO 50 mg Q6HR MARGUERITE Administration Dextrose 1,000 mls @ 100 mls/hr 02/05/25 21:36 Dextrose 5% 1,000 Ml IVPB PRN PRN Hypoglycemia Protocol Albumin Human 50 mls @ 999 mls/hr 02/09/25 06:57 Albutein IVPB 03/11/25 06:56 Q10M PRN HYPOTENSION Insulin Aspart 4 - 8 units 02/06/25 08:00 02/09/25 17:09 Insulin Aspart (*Bkc) 100 Units/Ml SUB-Q 4 units TIDWM MARGUERITE Administration Protocol Insulin Aspart 2 - 4 units 02/05/25 21:45 02/09/25 20:25 Insulin Aspart (*Bkc) 100 Units/Ml SUB-Q Not Given HS MARGUERITE Protocol Metolazone 5 mg 02/07/25 09:00 02/09/25 10:53 Metolazone 5 Mg Tablet PO 5 mg QAM MARGUERITE Administration Morphine Sulfate 2 mg 02/05/25 21:29 02/06/25 13:35 Morphine Sulfate (*Crx) 4 Mg/Ml Inj IV PUSH 2 mg Q4H PRN Administration Pain Rated 7-10 Ondansetron HCl 4 mg 02/05/25 20:41 Ondansetron Inj 4 Mg/2 Ml Vial IV PUSH Q6H PRN Nausea And Vomiting Oxycodone HCl 5 mg 02/08/25 11:08 Oxycodone Hcl (*Crx) 5 Mg Tab Ir PO Q6H PRN Pain Rated 7-10 Radiology Results: ITS Impressions Renal Ultrasound 02/06/25 17:09 IMPRESSION: Right kidney is unremarkable. Left kidney is not visualized. Chest X-Ray 02/08/25 11:41 IMPRESSION: 1. Likely tunneled large-bore dual-lumen] central venous catheter with distal tip in the midsuperior vena cava. 2. Pleural effusions with associated bibasilar atelectasis and/or pneumonia. Labs Labs: Laboratory Results - last 24 hr 02/09/25 02/09/25 02/09/25 11:03 17:00 20:23 WBC RBC Hgb Hct MCV MCH MCHC RDW Plt Count MPV Immature Gran % (Auto) Neut % (Auto) Lymph % (Auto) Sebastian % (Auto) Eos % (Auto) Baso % (Auto) Lymph # (Auto) Sebastian # (Auto) Eos # (Auto) Baso # (Auto) Abs Immat Gran (auto) Absolute Neuts (auto) Absolute Nucleated RBC Nucleated RBC % Sodium Potassium Chloride Carbon Dioxide Anion Gap BUN Creatinine Estim Creat Clear Calc Estimated GFR Glucose POC Capillary Glucose 211 H 226 H 155 H Calcium Total Bilirubin AST ALT Alkaline Phosphatase Total Protein Albumin 02/10/25 02/10/25 04:58 08:03 WBC 7.3 RBC 3.83 L Hgb 9.2 L Hct 29.3 L MCV 76.5 L MCH 24.0 L MCHC 31.4 L RDW 21.1 H Plt Count 443 H MPV 10.1 Immature Gran % (Auto) 0.3 Neut % (Auto) 63.4 Lymph % (Auto) 23.4 Sebastian % (Auto) 11.8 H Eos % (Auto) 0.7 Baso % (Auto) 0.4 Lymph # (Auto) 1.70 Sebastian # (Auto) 0.9 H Eos # (Auto) 0.1 Baso # (Auto) 0.0 Abs Immat Gran (auto) 0.02 Absolute Neuts (auto) 4.6 Absolute Nucleated RBC 0.020 H Nucleated RBC % 0.3 H Sodium 134 L Potassium 3.8 Chloride 101 Carbon Dioxide 24 Anion Gap 9 BUN 43 H D Creatinine 5.83 H Estim Creat Clear Calc 15 Estimated GFR 8 L Glucose 154 H POC Capillary Glucose 137 H Calcium 7.3 L Total Bilirubin 0.3 AST 19 ALT 18 Alkaline Phosphatase 95 Total Protein 5.7 L Albumin 2.8 L Quality VTE Prophylaxis VTE prophylaxis: mechanical ordered
--- NOTE | 2025-02-10 11:26 | P.PNNP_ITS ---
Progress Note: A&P Assessment and Plan (1) Acute kidney injury: Code(s): N17.9 - Acute kidney failure, unspecified Status: Acute Assessment and Plan: * as noted by admission labs (creatinine 10.26mg/dL) * unclear acuity versus chronicity of this issue (see #2) * complicated/associated with volume overload/anasarca and metabolic acidosis * etiology not clear... * evaluation to date noted: * urine electrolytes non-prerenal * UA with blood and protein * CPK mildly elevated but not enough to affect kidney function * renal ultrasound okay (unable to visualize left kidney) * nephrotic range proteinuria noted (> 10 grams) * serological evaluation noted (negative ANCA/dsDNA-ab/SPEP...rest are pending) * elevated CRP and ESR noted * no significant improvement with diuretic therapy * s/p HD catheter placement on 02/08 * initiated on [employer]ER/HD on 02/08 * HD yesterday * plan HD tomorrow * leaning towards doing a renal biopsy for a definitive diagnosis... * will need better BP control first * follow trend of repeat labs and UOP (2) Stage 3b chronic kidney disease: Code(s): N18.32 - Chronic kidney disease, stage 3b Status: Chronic Assessment and Plan: * creatinine down to 1.5mg/dL on September 2022 discharge * unclear if renal function recovered to normal (creatinine did go down as low as 0.7mg/dL during August/September 2022 hospitalization) * multiple risk factors for CKD: * hypertension * diabetes * vascular disease * recently discovered cardiomyopathy * other(?) (3) Volume overload: Code(s): E87.70 - Fluid overload, unspecified Status: Acute Assessment and Plan: * as noted by clinical exam (anasarca) * multifactorial etiology: * renal dysfunction * nephrotic range proteinuria/nephrotic syndrome * cardiomyopathy * vascular disease * no real improvement with diuretics * however, still making some urine with use of bumex/metolazone * continue fluid removal with HD/DUF as tolerated * approximately 5L negative with HD/DUF + diuretic therapy (4) Metabolic acidosis: Code(s): E87.20 - Acidosis, unspecified Status: Acute Assessment and Plan: * resolved * quite severe on presentation (CO2 < 5) * presumably due to renal dysfunction * should remain stable with HD treatments (5) Cardiomyopathy: Code(s): I42.9 - Cardiomyopathy, unspecified Status: Acute Assessment and Plan: * acute versus chronic? * ischemic versus non-ischemic? * Echo results noted (02/06): * left ventricular systolic function is severely reduced, estimated at 30 - 35% * left ventricular diastolic function is grade I diastolic dysfunction * mild to moderate mitral valve regurgitation * mild to moderate tricuspid valve regurgitation * moderate pulmonary hypertension, estimated pulmonary arterial systolic pressure is 47 mmHg * mild pulmonic regurgitation * Cardiology following * GMDT maybe somewhat limited by her severe renal dysfunction (6) Hypertension: Qualifiers: Hypertension type: primary hypertension Qualified Code(s): I10 - Essential (primary) hypertension Code(s): I10 - Essential (primary) hypertension Status: Acute Assessment and Plan: * quite elevated on ER presentation (systolic BP > 200) * still fluctuating but better control in general * on oral hydralazine * titrate carvedilol as tolerated * dialysis/fluid removal should/may help as well * follow trend of hemodynamics (7) Anemia: Qualifiers: Anemia type: due to chronic kidney disease Chronic kidney disease stage: unspecified stage Qualified Code(s): N18.9 - Chronic kidney disease, unspecified; D63.1 - Anemia in chronic kidney disease Code(s): D64.9 - Anemia, unspecified Status: Acute Assessment and Plan: * at least partly related to renal dysfunction * anemia studies demonstrate iron deficiency * getting IV iron * Epogen with HD * follow trend of H/H (8) Diabetes: Qualifiers: Chronic kidney disease stage: unspecified stage Diabetes mellitus complication detail: with chronic kidney disease Diabetes mellitus complication status: with kidney complications 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: w [facility] watermelon harvesting supervisor use Diabetes mellitus type: type 2 Qualified Code(s): E11.22 - Type 2 diabetes mellitus with diabetic chronic kidney disease Code(s): E11.9 - Type 2 diabetes mellitus without complications Status: Chronic Assessment and Plan: * follow accu-cheks * glycemic control per hospitalist Another long and extensive discussion (> 20 minutes) with patient and sister regarding her renal dysfunction and associated fluid overload/anasarca -- she is clinically improving with dialysis/dry ultrafiltraion but the underlying cause is still not clear. I discussed doing a renal biopsy as a potential intervention to delineate the cause of her edema and renal failure as well as to determine if there is any other treatment options to consider/available to treat these issues. I reviewed the risk, benefits, pros, cons, and the procedure itself of what is involved with a renal biopsy. She voiced understanding and is willing to proceed. Will continue to follow. L Subjective Date/time seen: 02/10/25 11:26 Interval history: Follow-up for acute kidney injury/acute renal failure on chronic kidney disease?) and anasarca. Tolerated dialysis treatment yesterday without any issues or problems; feels swelling/edema are improving as she is able to move around more easily and sit up at the the side of the bed as well; BP control seems to be doing better as well; concerned as her right arm seems a bit more swollen with mild erythema in comparison to her other extremities; sister at bedside and we discussed the situation. Exam 2 Narrative: General: mildly anxious but WD/WN female in NAD Heart: normal S1 and S2; no rub Lungs: decreased at the bases Abdomen: obese but soft, nontender, nondistended, positive bowel sounds Extremities: no cyanosis or clubbing; 2 - 3+ edema in RLE and BUEs; s/p left BKA Skin: no rash Objective Data Vital Signs Vital Signs: Vital Signs Temp Pulse Resp BP Pulse Ox O2 Del Method 02/10/25 11:03 83 02/10/25 08:26 86 02/10/25 08:03 84 02/10/25 08:00 84 16 160/71 H 98 02/10/25 04:00 97.8 F 82 18 148/67 H 94 02/10/25 04:00 82 02/10/25 00:00 87 02/09/25 23:35 98.6 F 88 16 153/79 H 94 02/09/25 20:25 93 02/09/25 20:00 93 02/09/25 20:00 98.5 F 93 20 153/63 H 92 02/09/25 20:00 Room Air 02/09/25 18:28 97.7 F 93 18 144/64 H 91 02/09/25 16:00 90 02/09/25 15:38 98.2 F 89 16 184/82 H 94 02/09/25 15:28 89 185/78 H 02/09/25 15:15 88 184/92 H 02/09/25 15:00 89 184/87 H Intake/Output Intake/Output: Intake & Output 02/07/25 02/08/25 02/09/25 02/10/25 23:59 23:59 23:59 23:59 Intake Total 860 1980 1120 880 Output Total 1201 4500 0229 425 [id number] [phone] Meds/Results Medications: Active Medications Generic Name Dose Route Start Last Admin Trade Name Freq PRN Reason Stop Dose Admin Acetaminophen 650 mg 02/05/25 20:41 02/08/25 21:04 Acetaminophen 325 Mg Tablet PO 650 mg Q4H PRN Administration Mild Pain (1-3) or Fever Hydrocodone Bitart/Acetaminophen 1 tab 02/08/25 11:49 Hydrocodone/Acetaminophen (*Crx) 5-325 Mg Tablet PO Q4H PRN Pain Rated 4-6 Bumetanide 2 mg 02/07/25 09:00 02/10/25 12:25 Bumetanide Inj 1 Mg/4 Ml Vial IV PUSH 2 mg TID MARGUERITE Administration Buspirone HCl 10 mg 02/10/25 12:43 02/10/25 13:43 Buspirone Hcl 10 Mg Tablet PO 10 mg BID PRN Administration Anxiety Carvedilol 18.75 mg 02/10/25 21:00 Carvedilol 6.25 Mg Tablet PO Q12HR MARGUERITE Dextrose 12.5 gm 02/05/25 21:36 Dextrose 50% 25 Gm/50 Ml Syringe IV PUSH PRN PRN Hypoglycemia Protocol Glucagon 1 mg 02/05/25 21:36 Glucagon For Inj 1 Mg Vial IM PRN PRN Hypoglycemia Protocol Glucose 15 gm 02/05/25 21:36 Glucose Oral Gel 15 Gm Of Glucse In 37.5 Gm Tube PO PRN PRN Hypoglycemia Protocol Hydralazine HCl 10 mg 02/05/25 20:41 Hydralazine Hcl 20 Mg/Ml Vial IV PUSH Q4H PRN Blood Pressure - High, >180/90 Hydralazine HCl 50 mg 02/08/25 18:00 02/10/25 12:41 Hydralazine Hcl 50 Mg Tablet PO 50 mg Q6HR MARGUERITE Administration Dextrose 1,000 mls @ 100 mls/hr 02/05/25 21:36 Dextrose 5% 1,000 Ml IVPB PRN PRN Hypoglycemia Protocol Albumin Human 50 mls @ 999 mls/hr 02/09/25 06:57 Albutein IVPB 03/11/25 06:56 Q10M PRN HYPOTENSION Insulin Aspart 4 - 8 units 02/06/25 08:00 02/10/25 12:25 Insulin Aspart (*Bkc) 100 Units/Ml SUB-Q 4 units TIDWM MARGUERITE Administration Protocol Insulin Aspart 2 - 4 units 02/05/25 21:45 02/09/25 20:25 Insulin Aspart (*Bkc) 100 Units/Ml SUB-Q Not Given HS [facility] Protocol Metolazone 5 mg 02/07/25 09:00 02/10/25 08:26 Metolazone 5 Mg Tablet PO 5 mg QAM MARGUERITE Administration Morphine Sulfate 2 mg 02/05/25 21:29 02/06/25 13:35 Morphine Sulfate (*Crx) 4 Mg/Ml Inj IV PUSH 2 mg Q4H PRN Administration Pain Rated 7-10 Ondansetron HCl 4 mg 02/05/25 20:41 Ondansetron Inj 4 Mg/2 Ml Vial IV PUSH Q6H PRN Nausea And Vomiting Oxycodone HCl 5 mg 02/08/25 11:08 Oxycodone Hcl (*Crx) 5 Mg Tab Ir PO Q6H PRN Pain Rated 7-10 Radiology Results: ITS Impressions Renal Ultrasound 02/06/25 17:09 IMPRESSION: Right kidney is unremarkable. Left kidney is not visualized. Chest X-Ray 02/08/25 11:41 IMPRESSION: 1. Likely tunneled large-bore dual-lumen] central venous catheter with distal tip in the midsuperior vena cava. 2. Pleural effusions with associated bibasilar atelectasis and/or pneumonia. Labs Labs: Laboratory Tests 02/10/25 04:58 02/10/25 04:58 Calcium 7.3 L Total Bilirubin 0.3 AST 19 ALT 18 Alkaline Phosphatase 95 Total Protein 5.7 L Albumin 2.8 L
[2025-02-10] MEDS: INSULIN ASPART (*BKC) 100 UNITS/ML SUB-Q (12:25)
[2025-02-10] MEDS: MORPHINE SULFATE (*CRX) 4 MG/ML INJ 2 MG IV PUSH (16:02)
[2025-02-11] VITALS (30 sets, daily range): BP systolic 84–189; BP diastolic 57–91; PULSE 79–86; RESP 15–18; TEMP 36.3–37; O2SAT 95–99
[2025-02-11 04:57] LABS: Hematocrit 29.4 % (37.0-47.0); Hemoglobin 9.2 g/dL (12.0-15.0); Immature Granulocyte Percent A 0.4 % (0-0.5); Lymphocytes Absolute Auto 1.64 K/mm3 (0.9-3.2); Mean Corpuscular HGB Conc 31.3 g/dl (32-36); Mean Corpuscular Hemoglobin 23.9 pg (26-34); Mean Corpuscular Volume 76.4 fl (80-100); Nucleated Red Blood Cells Absolute Auto 0.000 K/mm3 (0.0-0.012); Nucleated Red Blood Cells Perc 0.0 % (0.0-0.2); Platelet Count Result 474 k/mm3 (150-375); Red Blood Count 3.85 M/mm3 (4.2-5.4); White Blood Count 8.3 K/mm3 (4.5-10.0)
[2025-02-11 05:18] LABS: Alanine Aminotransferase 14 U/L (6-35); Albumin Level 2.6 g/dL (3.5-5.1); Alkaline Phosphatase 88 U/L (38-126); Anion Gap 8 mmol/L (4-12); Aspartate Amino Transferase 26 U/L (14-36); Bilirubin,Total 0.4 mg/dL (0.2-1.3); Blood Urea Nitrogen 47 mg/dL (7-17); Calcium 7.3 mg/dL (8.4-10.2); Carbon Dioxide 23 mmol/L (22-30); Chloride 102 mmol/L (98-107); Estimated CRCL calculation 14 ml/min; Estimated Glomerular Filt Rate 8; Glucose 132 mg/dL (65-110); Potassium 3.7 mmol/L (3.4-5.0); Sodium 133 mmol/L (137-145); Total Protein 5.5 g/dL (6.3-8.2)
[2025-02-11 05:35] LABS: INR 1.1; Prothrombin Time 14.5 Seconds (11.1-14.7)
--- NOTE | 2025-02-11 07:51 | P.PNIM_ITS ---
Progress Note: A&P Assessment and Plan (1) CHF (congestive heart failure): Qualifiers: Heart failure chronicity: acute Heart failure type: unspecified Qualified Code(s): I50.9 - Heart failure, unspecified Code(s): I50.9 - Heart failure, unspecified Status: Acute Assessment and Plan: Patient originally presented for primary complaint of shortness of breath and right lower extremity swelling (history of left BKA).? CXR showed mild CHF.? BNP greater than 30,000. Given new onset renal failure, may be hypervolemia due to acute renal failure/ESRD verses new onset CHF or combination thereof. - BNP greater than 30,000 upon admission on 02/05 - reviewed chart, no previous echo on file - start Bumex 2 mg b.i.d. IV - monitor I&Os and daily weights - trend renal function - TSH elevated, checking T3/ T4 02/06: - T3 / T4 WDL, pt does not remember when she took Synthroid last - Pt denies SOB and CP. RLE 3+ pitting edema - amber hose ordered today - Pending ECHO --> Left ventricular systolic function is severely reduced, estimated at 30-35. - Cardiology consulted 02/07: 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 EF of 30-35% per echo. Most likely secondary to uncontrolled HTN d/t medication non-compliance. Her CXR shows pleural effusions. Her pBNP is >79857. Agree with IV diuresis at this time, but urine output has been poor. Have discussed with renal and will begin lasix drip at 1mg. Will place fluid restriction. Will need accurate intake and output. Currently on coreg 3.125 mg BID and will uptitrate as tolerated. No ARB/ARNI or SGLT-2 at this time in setting of GARRISON/CKD. -->Will continue with tx, -Lasix gtt has since been discontinued. Increase bumex administration to 2mg IV BID. Pt continues to deny SOB and CP, she reports that she feels a lot more swollen. 02/08: -Pt continues to deny SOB and CP but reports still being swollen in her RUE and RLE. 02/09: Did well with dialysis 02/08, scheduled again today, to [employer]-tele afterwards 02/10: Pt on med [place] today. Pending neph plan, HD tomorrow. RLE edema improved since I saw her last on 02/08 and denies SOB. She brought to my attention today a spot of erythema to her medial elbow today, no warmth, but also thinks her RUE is more swollen. Ordered US duplex to r/o DVT. 02/11: HD today, US duplex negative. Continues to deny SOB and CP. LUE edema today, continue with Bumex 2g TID. (2) Diabetes: Qualifiers: Chronic kidney disease stage: unspecified stage Diabetes mellitus complication detail: with chronic kidney disease Diabetes mellitus complication status: with kidney complications Diabetes mellitus half-way insulin use: without half-way use Diabetes mellitus type: type 2 Qualified Code(s): E11.22 - Type 2 diabetes mellitus with diabetic chronic kidney disease Code(s): E11.9 - Type 2 diabetes mellitus without complications Status: Chronic Assessment and Plan: Patient has a history of type 2 diabetes.? However she has been off of her medications for the past 2 years since 2022.? She has not followed with any providers since 2022.? Diabetes complicated by previous diabetic foot infection requiring a left BKA in 2022. - hypoglycemia protocol - POC blood glucose ACHS - correct regimen ordered - high dose TIDWM and HS - A1C 8.6% on 02/05/2025 - clinical systems educator consulted - dietitian consulted 02/06: Blood sugars have been stable on current regimen 02/07: Blood sugars have been stable on current regimen 02/08: Blood sugar 90 this AM, pt had been NPO for procedure today 02/09: FBS 161 02/10: AM BS 154 today 02/11: FBS 132 (3) Elevated TSH: Code(s): R79.89 - Other specified abnormal findings of blood chemistry Status: Acute Assessment and Plan: TSH 6.320 on 02/05.? Previously within normal limits in August of 2022.? Will check T3/T4. 02/06: T3/T4 WDL, pt has not been taking Synthroid, she cannot remember when she took it last. 02/07: Continue taking Synthroid (4) Hypertension: Qualifiers: Hypertension type: primary hypertension Qualified Code(s): I10 - Essential (primary) hypertension Code(s): I10 - Essential (primary) hypertension Status: Acute Assessment and Plan: - chronic, untreated for the past 2 years. Arrived significantly hypertensive to [facility], BP 218/115. Currently 179/79. - start Coreg 3.125 mg b.i.d., patient was previously on same medication as well as hydralazine 50 mg q.6. Will hold off on starting hydralazine PO as we are trialing Bumex IV. hydralazine p.r.n. for BP greater than 180/90 - monitor 02/06: - potentially re-start PO hydral pending BPs 02/07: -Continue to hold hydral due to starting lasix gtt, and now TID bumex. Current BP stable, continue to monitor. 02/08: Starting pt back on her home dose hydral q6 today due to high pressures after getting back to her room, 180/90's. 02/09: BP 158/65 02/10: Cards increased coreg to 12.5mg BID, BP today 148/67, continue to monitor 02/11: 144/60, HD today (5) Anemia: Qualifiers: Anemia type: due to chronic kidney disease Chronic kidney disease stage: unspecified stage Qualified Code(s): N18.9 - Chronic kidney disease, unspecified; D63.1 - Anemia in chronic kidney disease Code(s): D64.9 - Anemia, unspecified Status: Acute Assessment and Plan: Patient has history of anemia, likely secondary to CKD. Hemoglobin 10.6 upon admission. Previously 7.2 upon discharge on 09/27/2022. - check iron, TIBC, ferritin, B12, folic acid, and TSH - transfuse if <7 02/06: -Continue with daily CBC -Iron % sat 7L, will give Venofer and start on orals upon discharge -Recheck iron % tomorrow 02/07: -Iron % exceedingly high due to recent venofer admin -Continue to check daily CBC -Likely d/c with oral iron (6) Acute kidney injury: Code(s): N17.9 - Acute kidney failure, unspecified Status: Acute Assessment and Plan: Neph following, daily labs Renal US: IMPRESSION: Right kidney is unremarkable. Left kidney is not visualized. 02/07: Plan for HD catheter placement tomorrow, NPO at midnight. 02/08: Pt dialyzed today, continue to trend labs 02/09: I/O -1830 last 24 hours 02/10: Creatinine today 5.83, pending next dialysis tomorrow. -Per pt, renal was discussing plans for possible kidney biopsy on 02/12 02/11: HD today (7) Anxiety: Code(s): F41.9 - Anxiety disorder, unspecified Status: Acute Assessment and Plan: Pt reporting an increase / ongoing anxiety since being in the hospital. She reports that she has been rx something in the past for anxiety that she took on a PRN basis and it was non-sedating but she cannot remember the name -Ordered Buspirone 10mg BID PRN for her 02/12 Plan Pending HD and kidney biopsy potentially 02/13, monitor volume status Time Spent With Patient Time: 35 Subjective Date/time seen: 02/11/25 1551 Interval history: Pt just returned to her room from dialysis. Pt continues to deny CP and SOB. Pt anxious upon my arrival due to being in dialysis for a long time, better now with BuSpar. Pt reporting LUE edema now. No other sx. Review of Systems Review of Systems: All systems reviewed & are unremarkable except as noted in HPI and below Exam Const: General: no acute distress and uncomfortable Other: , female, nontoxic appearance HENMT: Face/Nose/Sinus: Normal nares present Mouth: Yes moist mucous membranes and Yes dry mucous membranes Eyes: General: appearance normal, both eyes and all related structures Sclera: sclerae normal Pupils: Equal, round and reactive pupils present EOM: EOMs intact bilaterally Neck: Neck: supple Resp: Effort & Inspection: normal respiratory effort Other: Bilateral lower lungs diminished lung sounds Cardio: Rate: regular rate Rhythm: regular rhythm Other: S1-S2 present without murmur, rub, ectopy GI: Inspection: non-distended Auscultation: abnormal bowel sounds (hypo, all quadrants) Other: Abdomen soft, nondistended, nontender. Skin: General skin exam: normal color and no rashes or lesions noted Other: Small scattered small areas of eschar less than 1 cm to bilateral shoulders, upper extremities, and forehead with no signs of infection. RLE: Normal inspection HD catheter to R subclavian Neuro: Cranial nerves: Yes Equal, round and reactive pupils present Speech: normal speech Sensory Exam: normal sensation Other: A&O x4, generalized weakness Extrem: Other: Left BKA. RLE trace. Thighs symmetric. RUE 1+ pitting edema Psych: Mental Status: mental status grossly normal Affect: normal affect and Anxious affect present Other: Good insight and judgment, very pleasant Objective Data Vital Signs Vital Signs: Vital Signs - 24 hr 02/10/25 08:00 02/10/25 08:03 02/10/25 08:26 Temperature Pulse Rate 84 84 86 Respiratory Rate 16 Blood Pressure 160/71 H Pulse Oximetry 98 02/10/25 12:03 02/10/25 14:00 02/10/25 16:00 Temperature 97.6 F Pulse Rate 83 87 84 Respiratory Rate 18 Blood Pressure 150/64 H Pulse Oximetry 94 02/10/25 17:29 02/10/25 20:00 02/10/25 21:11 Temperature Pulse Rate 84 86 Respiratory Rate Blood Pressure 168/72 H Pulse Oximetry 02/10/25 21:20 02/11/25 00:00 02/11/25 04:00 Temperature 98.4 F Pulse Rate 86 81 79 Respiratory Rate 18 Blood Pressure 160/64 H Pulse Oximetry 97 02/11/25 06:00 Temperature 98.0 F Pulse Rate 80 Respiratory Rate 18 Blood Pressure 144/60 H Pulse Oximetry 99 Intake/Output Intake/Output: Intake & Output 02/08/25 02/09/25 02/10/25 02/11/25 23:59 23:59 23:59 23:59 Intake Total 1980 1120 1470 Output Total 4500 5000 925 700 Balance -2068 -0004 545 -700 Meds/Results Medications: Active Medications Generic Name Dose Route Start Last Admin Trade Name Freq PRN Reason Stop Dose Admin Acetaminophen 650 mg 02/05/25 20:41 02/08/25 21:04 Acetaminophen 325 Mg Tablet PO 650 mg Q4H PRN Administration Mild Pain (1-3) or Fever Hydrocodone Bitart/Acetaminophen 1 tab 02/08/25 11:49 Hydrocodone/Acetaminophen (*Crx) 5-325 Mg Tablet PO Q4H PRN Pain Rated 4-6 Bumetanide 2 mg 02/07/25 09:00 02/10/25 17:30 Bumetanide Inj 1 Mg/4 Ml Vial IV PUSH 2 mg TID MARGUERITE Administration Buspirone HCl 10 mg 02/10/25 12:43 02/10/25 13:43 Buspirone Hcl 10 Mg Tablet PO 10 mg BID PRN Administration Anxiety Carvedilol 18.75 mg 02/10/25 21:00 02/10/25 21:11 Carvedilol 6.25 Mg Tablet PO 18.75 mg Q12HR MARGUERITE Administration Dextrose 12.5 gm 02/05/25 21:36 Dextrose 50% 25 Gm/50 Ml Syringe IV PUSH PRN PRN Hypoglycemia Protocol Epoetin Sergio-epbx 10,000 units 02/11/25 18:05 Epoetin Sergio-Epbx 10,000 Units/Ml Vial IV PUSH 02/11/25 18:06 ONCE ONE Glucagon 1 mg 02/05/25 21:36 Glucagon For Inj 1 Mg Vial IM PRN PRN Hypoglycemia Protocol Glucose 15 gm 02/05/25 21:36 Glucose Oral Gel 15 Gm Of Glucse In 37.5 Gm Tube PO PRN PRN Hypoglycemia Protocol Hydralazine HCl 10 mg 02/05/25 20:41 Hydralazine Hcl 20 Mg/Ml Vial IV PUSH Q4H PRN Blood Pressure - High, >180/90 Hydralazine HCl 50 mg 02/11/25 09:00 Hydralazine Hcl 50 Mg Tablet PO TID MARGUERITE Dextrose 1,000 mls @ 100 mls/hr 02/05/25 21:36 Dextrose 5% 1,000 Ml IVPB PRN PRN Hypoglycemia Protocol Albumin Human 50 mls @ 999 mls/hr 02/09/25 06:57 Albutein IVPB 03/11/25 06:56 Q10M PRN HYPOTENSION Insulin Aspart 4 - 8 units 02/06/25 08:00 02/10/25 17:26 Insulin Aspart (*Bkc) 100 Units/Ml SUB-Q Not Given TIDWM MARGUERITE Protocol Insulin Aspart 2 - 4 units 02/05/25 21:45 02/10/25 21:14 Insulin Aspart (*Bkc) 100 Units/Ml SUB-Q Not Given HS MARGUERITE Protocol Metolazone 5 mg 02/07/25 09:00 02/10/25 08:26 Metolazone 5 Mg Tablet PO 5 mg QAM MARGUERITE Administration Morphine Sulfate 2 mg 02/05/25 21:29 02/10/25 16:02 Morphine Sulfate (*Crx) 4 Mg/Ml Inj IV PUSH 2 mg Q4H PRN Administration Pain Rated 7-10 Ondansetron HCl 4 mg 02/05/25 20:41 Ondansetron Inj 4 Mg/2 Ml Vial IV PUSH Q6H PRN Nausea And Vomiting Oxycodone HCl 5 mg 02/08/25 11:08 Oxycodone Hcl (*Crx) 5 Mg Tab Ir PO Q6H PRN Pain Rated 7-10 Radiology Results: ITS Impressions Renal Ultrasound 02/06/25 17:09 IMPRESSION: Right kidney is unremarkable. Left kidney is not visualized. Chest X-Ray 02/08/25 11:41 IMPRESSION: 1. Likely tunneled large-bore dual-lumen] central venous catheter with distal tip in the midsuperior vena cava. 2. Pleural effusions with associated bibasilar atelectasis and/or pneumonia. Venous Doppler Study 02/10/25 17:43 Impression: Negative for DVT. Labs Labs: Laboratory Results - last 24 hr 02/10/25 02/10/25 02/10/25 08:03 12:07 16:38 WBC RBC Hgb Hct MCV MCH MCHC RDW Plt Count MPV Immature Gran % (Auto) Neut % (Auto) Lymph % (Auto) [place] % (Auto) Eos % (Auto) Baso % (Auto) Lymph # (Auto) [place] # (Auto) Eos # (Auto) Baso # (Auto) Abs Immat Gran (auto) Absolute Neuts (auto) Absolute Nucleated RBC Nucleated RBC % PT INR Sodium Potassium Chloride Carbon Dioxide Anion Gap BUN Creatinine Estim Creat Clear Calc Estimated GFR Glucose POC Capillary Glucose 137 H 243 H 157 H Calcium Phosphorus Total Bilirubin AST ALT Alkaline Phosphatase Total Protein Albumin 02/10/25 02/11/25 19:43 04:40 WBC 8.3 RBC 3.85 L Hgb 9.2 L Hct 29.4 L MCV 76.4 L MCH 23.9 L MCHC 31.3 L RDW 21.2 H Plt Count 474 H MPV 10.5 H Immature Gran % (Auto) 0.4 Neut % (Auto) 61.2 Lymph % (Auto) 19.8 [place] % (Auto) 13.9 H Eos % (Auto) 4.2 Baso % (Auto) 0.5 Lymph # (Auto) 1.64 [place] # (Auto) 1.2 H Eos # (Auto) 0.4 H Baso # (Auto) 0.0 Abs Immat Gran (auto) 0.03 Absolute Neuts (auto) 5.1 Absolute Nucleated RBC 0.000 Nucleated RBC % 0.0 PT 14.5 INR 1.1 Sodium 133 L Potassium 3.7 Chloride 102 Carbon Dioxide 23 Anion Gap 8 BUN 47 H Creatinine 6.13 H Estim Creat Clear Calc 14 Estimated GFR 8 L Glucose 132 H POC Capillary Glucose 187 H Calcium 7.3 L Phosphorus 5.1 H Total Bilirubin 0.4 AST 26 ALT 14 Alkaline Phosphatase 88 Total Protein 5.5 L Albumin 2.6 L Quality VTE Prophylaxis VTE prophylaxis: mechanical ordered
--- NOTE | 2025-02-11 09:38 | PC.NURSE ---
Pt went to dialysis for treatment at 9:00 AM.
[2025-02-11] MEDS: ALTEPLASE 2 MG VIAL (CATHFLO) IV PUSH ×2 (10:13→10:14)
--- NOTE | 2025-02-11 10:34 | PCPTNOTE ---
Attempted evaluation 10:30, patient out of room at dialysis.
[2025-02-11 11:08] LABS: ANA by IFA Rfx Titer/Pattern Negative (.)
[2025-02-11] MEDS: EPOETIN ALFA-EPBX 10,000 UNITS/ML VIAL 10000 UNITS IV PUSH (11:22)
--- NOTE | 2025-02-11 11:35 | P.PNNP_ITS ---
Progress Note: A&P Assessment and Plan (1) Acute kidney injury: Code(s): N17.9 - Acute kidney failure, unspecified Status: Acute Assessment and Plan: * as noted by admission labs (creatinine 10.26mg/dL) * unclear acuity versus chronicity of this issue (see #2) * complicated/associated with volume overload/anasarca and metabolic acidosis * etiology not clear... * evaluation to date noted: * urine electrolytes non-prerenal * UA with blood and protein * CPK mildly elevated but not enough to affect kidney function * renal ultrasound okay (unable to visualize left kidney) * nephrotic range proteinuria noted (> 10 grams) * serological evaluation noted (negative ANCA/dsDNA-ab/SPEP...rest are pending) * elevated CRP and ESR noted * no significant improvement with diuretic therapy * s/p HD catheter placement on 02/08 * initiated on AQUATIC HABITAT BIOLOGIST/HD on 02/08 * HD/DUF on 02/08 and 02/09 * HD today * planning renal biopsy for a definitive diagnosis of her renal dysfunction * tentatively scheduled for Tuesday * follow trend of repeat labs and UOP (2) Stage 3b chronic kidney disease: Code(s): N18.32 - Chronic kidney disease, stage 3b Status: Chronic Assessment and Plan: * creatinine down to 1.5mg/dL on September 2022 discharge * unclear if renal function recovered to normal (creatinine did go down as low as 0.7mg/dL during August/September 2022 hospitalization) * multiple risk factors for CKD: * hypertension * diabetes * vascular disease * recently discovered cardiomyopathy * other(?) (3) Volume overload: Code(s): E87.70 - Fluid overload, unspecified Status: Acute Assessment and Plan: * as noted by clinical exam (anasarca) * multifactorial etiology: * renal dysfunction * nephrotic range proteinuria/nephrotic syndrome * cardiomyopathy * vascular disease * no real improvement with diuretics * however, still making some urine with use of bumex/metolazone * continue fluid removal with HD/DUF as tolerated (4) Metabolic acidosis: Code(s): E87.20 - Acidosis, unspecified Status: Acute Assessment and Plan: * resolved * quite severe on presentation (CO2 < 5) * presumably due to renal dysfunction * should remain stable with HD treatments (5) Cardiomyopathy: Code(s): I42.9 - Cardiomyopathy, unspecified Status: Acute Assessment and Plan: * acute versus chronic? * ischemic versus non-ischemic? * Echo results noted (02/06): * left ventricular systolic function is severely reduced, estimated at 30 - 35% * left ventricular diastolic function is grade I diastolic dysfunction * mild to moderate mitral valve regurgitation * mild to moderate tricuspid valve regurgitation * moderate pulmonary hypertension, estimated pulmonary arterial systolic pressure is 47 mmHg * mild pulmonic regurgitation * Cardiology following * GMDT maybe somewhat limited by her severe renal dysfunction (6) Hypertension: Qualifiers: Hypertension type: primary hypertension Qualified Code(s): I10 - Essential (primary) hypertension Code(s): I10 - Essential (primary) hypertension Status: Acute Assessment and Plan: * quite elevated on ER presentation (systolic BP > 200) * still fluctuating but better control in general * on oral hydralazine * continue carvedilol * dialysis/fluid removal should/may help as well * follow trend of hemodynamics (7) Anemia: Qualifiers: Anemia type: due to chronic kidney disease Chronic kidney disease stage: unspecified stage Qualified Code(s): N18.9 - Chronic kidney disease, unspecified; D63.1 - Anemia in chronic kidney disease Code(s): D64.9 - Anemia, unspecified Status: Acute Assessment and Plan: * at least partly related to renal dysfunction * anemia studies demonstrate iron deficiency * getting IV iron * Epogen with HD * follow trend of H/H (8) Diabetes: Qualifiers: Chronic kidney disease stage: unspecified stage Diabetes mellitus complication detail: with chronic kidney disease Diabetes mellitus complication status: with kidney complications Diabetes mellitus fdc insulin use: w [facility] fdc use Diabetes mellitus type: type 2 Qualified Code(s): E11.22 - Type 2 diabetes mellitus with diabetic chronic kidney disease Code(s): E11.9 - Type 2 diabetes mellitus without complications Status: Chronic Assessment and Plan: * follow accu-cheks * glycemic control per hospitalist Will continue to follow. L Subjective Date/time seen: 02/11/25 11:35 Interval history: Follow-up for acute kidney injury/acute renal failure (on chronic kidney disease?) and anasarca. Tolerating dialysis treatment at the time of my visit (seen on HD at 11:25am); despite ongoing fluid removal with dialysis and diuretic therapy, still a significant degree of edema/swelling in her upper extremities; no other acute complaints voiced when seen. Exam 2 Narrative: General: mildly anxious but WD/WN female in NAD Heart: normal S1 and S2; no rub Lungs: decreased at the bases Abdomen: obese but soft, nontender, nondistended, positive bowel sounds Extremities: no cyanosis or clubbing; 2 - 3+ edema in RLE and BUEs; s/p left BKA Skin: no nodules Objective Data Vital Signs Vital Signs: Vital Signs Temp Pulse Resp BP Pulse Ox O2 Del Method 02/11/25 11:30 81 173/86 H 02/11/25 11:15 81 180/86 H 02/11/25 11:05 82 168/78 H 02/11/25 09:30 81 141/70 H 02/11/25 09:19 82 150/74 H 02/11/25 09:11 97.9 F 83 17 151/76 H 97 02/11/25 08:00 Room Air 02/11/25 08:00 84 02/11/25 06:00 98.0 F 80 18 144/60 H 99 02/11/25 04:00 79 02/11/25 00:00 81 02/10/25 21:20 98.4 F 86 18 160/64 H 97 02/10/25 21:11 86 02/10/25 20:00 84 Intake/Output Intake/Output: Intake & Output 02/08/25 02/09/25 02/10/25 02/11/25 23:59 23:59 23:59 23:59 Intake Total 1980 1120 1470 480 Output Total 4500 6476 927 5404 Balance -8310 -3880 545 -6660 Meds/Results Medications: Active Medications Generic Name Dose Route Start Last Admin Trade Name Freq PRN Reason Stop Dose Admin Acetaminophen 650 mg 02/05/25 20:41 02/08/25 21:04 Acetaminophen 325 Mg Tablet PO 650 mg Q4H PRN Administration Mild Pain (1-3) or Fever Hydrocodone Bitart/Acetaminophen 1 tab 02/08/25 11:49 Hydrocodone/Acetaminophen (*Crx) 5-325 Mg Tablet PO Q4H PRN Pain Rated 4-6 Alteplase, Recombinant 2 mg 02/11/25 10:00 02/11/25 10:13 Alteplase 2 Mg Vial (Cathflo) IV PUSH 2 mg ONCE PRN Administration Line Occlusion Alteplase, Recombinant 2 mg 02/11/25 10:01 02/11/25 10:14 Alteplase 2 Mg Vial (Cathflo) IV PUSH 2 mg ONCE PRN Administration Line Occlusion Bumetanide 2 mg 02/07/25 09:00 02/11/25 18:44 Bumetanide Inj 1 Mg/4 Ml Vial IV PUSH 2 mg TID MARGUERITE Administration Buspirone HCl 10 mg 02/10/25 12:43 02/11/25 15:32 Buspirone Hcl 10 Mg Tablet PO 10 mg BID PRN Administration Anxiety Carvedilol 18.75 mg 02/10/25 21:00 02/11/25 15:32 Carvedilol 6.25 Mg Tablet PO 18.75 mg Q12HR MARGUERITE Administration Dextrose 12.5 gm 02/05/25 21:36 Dextrose 50% 25 Gm/50 Ml Syringe IV PUSH PRN PRN Hypoglycemia Protocol Glucagon 1 mg 02/05/25 21:36 Glucagon For Inj 1 Mg Vial IM PRN PRN Hypoglycemia Protocol Glucose 15 gm 02/05/25 21:36 Glucose Oral Gel 15 Gm Of Glucse In 37.5 Gm Tube PO PRN PRN Hypoglycemia Protocol Heparin Sodium (Porcine) 1,000 units 02/11/25 11:47 02/11/25 12:03 Heparin Sodium 1,000 Units/Ml Vial IV PUSH 1,000 units Q1H PRN Administration DIALYSIS Hydralazine HCl 10 mg 02/05/25 20:41 Hydralazine Hcl 20 Mg/Ml Vial IV PUSH Q4H PRN Blood Pressure - High, >180/90 Hydralazine HCl 50 mg 02/11/25 09:00 02/11/25 18:44 Hydralazine Hcl 50 Mg Tablet PO 50 mg TID MARGUERITE Administration Dextrose 1,000 mls @ 100 mls/hr 02/05/25 21:36 Dextrose 5% 1,000 Ml IVPB PRN PRN Hypoglycemia Protocol Albumin Human 50 mls @ 999 mls/hr 02/09/25 06:57 Albutein IVPB 03/11/25 06:56 Q10M PRN HYPOTENSION Insulin Aspart 4 - 8 units 02/06/25 08:00 02/11/25 18:04 Insulin Aspart (*Bkc) 100 Units/Ml SUB-Q Not Given TIDWM MARGUERITE Protocol Insulin Aspart 2 - 4 units 02/05/25 21:45 02/10/25 21:14 Insulin Aspart (*Bkc) 100 Units/Ml SUB-Q Not Given HS COUNT INCLUDES THE [facility] Protocol Metolazone 5 mg 02/07/25 09:00 02/11/25 15:32 Metolazone 5 Mg Tablet PO 5 mg QAM MARGUERITE Administration Morphine Sulfate 2 mg 02/05/25 21:29 02/10/25 16:02 Morphine Sulfate (*Crx) 4 Mg/Ml Inj IV PUSH 2 mg Q4H PRN Administration Pain Rated 7-10 Ondansetron HCl 4 mg 02/05/25 20:41 Ondansetron Inj 4 Mg/2 Ml Vial IV PUSH Q6H PRN Nausea And Vomiting Oxycodone HCl 5 mg 02/08/25 11:08 Oxycodone Hcl (*Crx) 5 Mg Tab Ir PO Q6H PRN Pain Rated 7-10 Radiology Results: ITS Impressions Renal Ultrasound 02/06/25 17:09 IMPRESSION: Right kidney is unremarkable. Left kidney is not visualized. Chest X-Ray 02/08/25 11:41 IMPRESSION: 1. Likely tunneled large-bore dual-lumen] central venous catheter with distal tip in the midsuperior vena cava. 2. Pleural effusions with associated bibasilar atelectasis and/or pneumonia. Venous Doppler Study 02/10/25 17:43 Impression: Negative for DVT. Labs Labs: Laboratory Tests 02/11/25 04:40 02/11/25 04:40 Calcium 7.3 L Phosphorus 5.1 H Total Bilirubin 0.4 AST 26 ALT 14 Alkaline Phosphatase 88 Total Protein 5.5 L Albumin 2.6 L
[2025-02-11 14:08] LABS: Immunoglobulin A, Qn 295 mg/dL (87-352); Immunoglobulin G, Qn 1066 mg/dL (586-1602); Immunoglobulin M, Qn 47 mg/dL (26-217)
[2025-02-11 14:16] LABS: Hematocrit 33.4 % (37.0-47.0); Hemoglobin 10.0 g/dL (12.0-15.0); Immature Granulocyte Percent A 0.4 % (0-0.5); Lymphocytes Absolute Auto 1.13 K/mm3 (0.9-3.2); Mean Corpuscular HGB Conc 29.9 g/dl (32-36); Mean Corpuscular Hemoglobin 23.4 pg (26-34); Mean Corpuscular Volume 78.2 fl (80-100); Nucleated Red Blood Cells Absolute Auto 0.000 K/mm3 (0.0-0.012); Nucleated Red Blood Cells Perc 0.0 % (0.0-0.2); Platelet Count Result 418 k/mm3 (150-375); Red Blood Count 4.27 M/mm3 (4.2-5.4); White Blood Count 7.4 K/mm3 (4.5-10.0)
--- NOTE | 2025-02-11 14:38 | PCCDE ---
02/11/25: Attempted to follow up with patient 3 times today including around 9 am and close to 2pm - pt still in HD.
[2025-02-11 14:42] LABS: Band Neutrophils Percent 0 % (0-6); Schistocytes None Seen
[2025-02-11 14:43] LABS: Anisocytosis 3+; Hypochromasia 1+
[2025-02-11] MEDS: BUMETANIDE INJ 1 MG/4 ML VIAL 2 MG IV PUSH ×2 (15:33→18:44)
[2025-02-11 19:08] LABS: Anti-GBM Antibodies <0.2 units (0.0-0.9)
[2025-02-11] MEDS: oxyCODONE HCL (*CRX) 5 MG TAB IR PO (20:17)
[2025-02-11] MEDS: INSULIN ASPART (*BKC) 100 UNITS/ML SUB-Q (20:30)
[2025-02-11] MEDS: MORPHINE SULFATE (*CRX) 4 MG/ML INJ 2 MG IV PUSH (20:31)
[2025-02-12] VITALS (29 sets, daily range): BP systolic 118–174; BP diastolic 58–78; PULSE 77–85; RESP 14–20; TEMP 36.5–37; O2SAT 94–99
[2025-02-12 05:16] LABS: Hematocrit 31.0 % (37.0-47.0); Hemoglobin 9.3 g/dL (12.0-15.0); Immature Granulocyte Percent A 0.3 % (0-0.5); Lymphocytes Absolute Auto 1.50 K/mm3 (0.9-3.2); Mean Corpuscular HGB Conc 30.0 g/dl (32-36); Mean Corpuscular Hemoglobin 23.5 pg (26-34); Mean Corpuscular Volume 78.3 fl (80-100); Nucleated Red Blood Cells Absolute Auto 0.000 K/mm3 (0.0-0.012); Nucleated Red Blood Cells Perc 0.0 % (0.0-0.2); Platelet Count Result 439 k/mm3 (150-375); Red Blood Count 3.96 M/mm3 (4.2-5.4); White Blood Count 7.6 K/mm3 (4.5-10.0)
[2025-02-12 05:35] LABS: Alanine Aminotransferase 13 U/L (6-35); Albumin Level 2.4 g/dL (3.5-5.1); Alkaline Phosphatase 82 U/L (38-126); Anion Gap 5 mmol/L (4-12); Aspartate Amino Transferase 20 U/L (14-36); Bilirubin,Total 0.3 mg/dL (0.2-1.3); Blood Urea Nitrogen 38 mg/dL (7-17); Calcium 7.6 mg/dL (8.4-10.2); Carbon Dioxide 24 mmol/L (22-30); Chloride 103 mmol/L (98-107); Estimated CRCL calculation 17 ml/min; Estimated Glomerular Filt Rate 9; Glucose 115 mg/dL (65-110); Potassium 3.8 mmol/L (3.4-5.0); Sodium 132 mmol/L (137-145); Total Protein 5.1 g/dL (6.3-8.2)
--- NOTE | 2025-02-12 07:59 | PCPTNOTE ---
Attempted PT evaluation. Pt adamantly refused stating she is fully rested and did not want to transfer OOB. Pt also anxious about getting another Dialysis treatment today. Pt concerned her prosthetic will not fit due to swelling. Nursing aware. Will follow.
--- NOTE | 2025-02-12 08:31 | P.PNIM_ITS ---
Progress Note: A&P Assessment and Plan (1) CHF (congestive heart failure): Qualifiers: Heart failure chronicity: acute Heart failure type: unspecified Qualified Code(s): I50.9 - Heart failure, unspecified Code(s): I50.9 - Heart failure, unspecified Status: Acute Assessment and Plan: Patient originally presented for primary complaint of shortness of breath and right lower extremity swelling (history of left BKA).? CXR showed mild CHF.? BNP greater than 30,000. Given new onset renal failure, may be hypervolemia due to acute renal failure/ESRD verses new onset CHF or combination thereof. - BNP greater than 30,000 upon admission on 02/05 - reviewed chart, no previous echo on file - start Bumex 2 mg b.i.d. IV - monitor I&Os and daily weights - trend renal function - TSH elevated, checking T3/ T4 02/06: - T3 / T4 WDL, pt does not remember when she took Synthroid last - Pt denies SOB and CP. RLE 3+ pitting edema - amber hose ordered today - Pending ECHO --> Left ventricular systolic function is severely reduced, estimated at 30-35. - Cardiology consulted 02/07: 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 EF of 30-35% per echo. Most likely secondary to uncontrolled HTN d/t medication non-compliance. Her CXR shows pleural effusions. Her pBNP is >81095. Agree with IV diuresis at this time, but urine output has been poor. Have discussed with renal and will begin lasix drip at 1mg. Will place fluid restriction. Will need accurate intake and output. Currently on coreg 3.125 mg BID and will uptitrate as tolerated. No ARB/ARNI or SGLT-2 at this time in setting of GARRISON/CKD. -->Will continue with tx, -Lasix gtt has since been discontinued. Increase bumex administration to 2mg IV BID. Pt continues to deny SOB and CP, she reports that she feels a lot more swollen. 02/08: -Pt continues to deny SOB and CP but reports still being swollen in her RUE and RLE. 02/09: Did well with dialysis 02/08, scheduled again today, to [facility] afterwards 02/10: Pt on med [employer] today. Pending neph plan, HD tomorrow. RLE edema improved since I saw her last on 02/08 and denies SOB. She brought to my attention today a spot of erythema to her medial elbow today, no warmth, but also thinks her RUE is more swollen. Ordered US duplex to r/o DVT. 02/11: HD today, US duplex negative. Continues to deny SOB and CP. LUE edema today, continue with Bumex 2g IV TID. 02/12: HD again today. Continues to deny any sx. Continued BUE edema. If still presenting tomorrow after HD today, consider additional imaging. (2) Diabetes: Qualifiers: Chronic kidney disease stage: unspecified stage Diabetes mellitus complication detail: with chronic kidney disease Diabetes mellitus complication status: with kidney complications Diabetes mellitus terminal superintendent insulin use: without senior care use Diabetes mellitus type: type 2 Qualified Code(s): E11.22 - Type 2 diabetes mellitus with diabetic chronic kidney disease Code(s): E11.9 - Type 2 diabetes mellitus without complications Status: Chronic Assessment and Plan: Patient has a history of type 2 diabetes.? However she has been off of her medications for the past 2 years since 2022.? She has not followed with any providers since 2022.? Diabetes complicated by previous diabetic foot infection requiring a left BKA in 2022. - hypoglycemia protocol - POC blood glucose ACHS - correct regimen ordered - high dose TIDWM and HS - A1C 8.6% on 02/05/2025 - outreach educator consulted - dietitian consulted 02/06: Blood sugars have been stable on current regimen 02/07: Blood sugars have been stable on current regimen 02/08: Blood sugar 90 this AM, pt had been NPO for procedure today 02/09: FBS 161 02/10: AM BS 154 today 02/11: FBS 132 02/12: FBS 115 (3) Elevated TSH: Code(s): R79.89 - Other specified abnormal findings of blood chemistry Status: Acute Assessment and Plan: TSH 6.320 on 02/05.? Previously within normal limits in August of 2022.? Will check T3/T4. 02/06: T3/T4 WDL, pt has not been taking Synthroid, she cannot remember when she took it last. 02/07: Continue taking Synthroid (4) Hypertension: Qualifiers: Hypertension type: primary hypertension Qualified Code(s): I10 - Ess ential (primary) hypertension Code(s): I10 - Essential (primary) hypertension Status: Acute Assessment and Plan: - chronic, untreated for the past 2 years. Arrived significantly hypertensive to [facility], BP 218/115. Currently 179/79. - start Coreg 3.125 mg b.i.d., patient was previously on same medication as well as hydralazine 50 mg q.6. Will hold off on starting hydralazine PO as we are trialing Bumex IV. hydralazine p.r.n. for BP greater than 180/90 - monitor 02/06: - potentially re-start PO hydral pending BPs 02/07: -Continue to hold hydral due to starting lasix gtt, and now TID bumex. Current BP stable, continue to monitor. 02/08: Starting pt back on her home dose hydral q6 today due to high pressures after getting back to her room, 180/90's. 02/09: BP 158/65 02/10: Cards increased coreg to 12.5mg BID, BP today 148/67, continue to monitor 02/11: 144/60, HD today 02/12: Neph aware of recent high BPs, starting to normalize today at 136/63. Current meds: -Bumex 2mg IVP TID -Coreg 25 PO BID -Hydralazine 100mg PO QID (5) Anemia: Qualifiers: Anemia type: due to chronic kidney disease Chronic kidney disease stage: unspecified stage Qualified Code(s): N18.9 - Chronic kidney disease, unspecified; D63.1 - Anemia in chronic kidney disease Code(s): D64.9 - Anemia, unspecified Status: Acute Assessment and Plan: Patient has history of anemia, likely secondary to CKD. Hemoglobin 10.6 upon admission. Previously 7.2 upon discharge on 09/27/2022. - check iron, TIBC, ferritin, B12, folic acid, and TSH - transfuse if <7 02/06: -Continue with daily CBC -Iron % sat 7L, will give Venofer and start on orals upon discharge -Recheck iron % tomorrow 02/07: -Iron % exceedingly high due to recent venofer admin -Continue to check daily CBC -Likely d/c with oral iron (6) Acute kidney injury: Code(s): N17.9 - Acute kidney failure, unspecified Status: Acute Assessment and Plan: Neph following, daily labs Renal US: IMPRESSION: Right kidney is unremarkable. Left kidney is not visualized. 02/07: Plan for HD catheter placement tomorrow, NPO at midnight. 02/08: Pt dialyzed today, continue to trend labs 02/09: I/O -1830 last 24 hours 02/10: Creatinine today 5.83, pending next dialysis tomorrow. -Per pt, renal was discussing plans for possible kidney biopsy on 02/12 02/11: HD today 02/12: HD today, 1300 (7) Anxiety: Code(s): F41.9 - Anxiety disorder, unspecified Status: Acute Assessment and Plan: Pt reporting an increase / ongoing anxiety since being in the hospital. She reports that she has been rx something in the past for anxiety that she took on a PRN basis and it was non-sedating but she cannot remember the name -Ordered Buspirone 10mg BID PRN for her 02/12 02/12: Pt with another acute anxiety episode today with some itching. One time dose of hydroxyzine 25mg given. Plan Pending HD and kidney biopsy potentially 02/13, monitor volume status & BUE edema Time Spent With Patient Time: 40 Subjective Date/time seen: 02/12/25 0933 Interval history: Pt sitting in bed comfortably, mildly anxious. Pt continues to deny CP and SOB. Continues to report BUE edema. Imaging of RUE negative for DVT via US. Continue HD today. Pt denies other sx, upset due to her HD getting pushed back to the afternoon. Review of Systems Review of Systems: All systems reviewed & are unremarkable except as noted in HPI and below Exam Const: General: no acute distress and uncomfortable Other: , female, nontoxic appearance HENMT: Face/Nose/Sinus: Normal nares present Mouth: Yes moist mucous membranes and Yes dry mucous membranes Eyes: General: appearance normal, both eyes and all related structures Sclera: sclerae normal Pupils: Equal, round and reactive pupils present EOM: EOMs intact bilaterally Neck: Neck: supple Resp: Effort & Inspection: normal respiratory effort Other: Bilateral lower lungs diminished lung sounds Cardio: Rate: regular rate Rhythm: regular rhythm Other: S1-S2 present without murmur, rub, ectopy GI: Inspection: non-distended Auscultation: abnormal bowel sounds (hypo, all quadrants) Other: Abdomen soft, nondistended, nontender. Skin: General skin exam: normal color and no rashes or lesions noted Other: Small scattered small areas of eschar less than 1 cm to bilateral shoulders, upper extremities, and forehead with no signs of infection. RLE: Normal inspection HD catheter to R subclavian Neuro: Cranial nerves: Yes Equal, round and reactive pupils present Speech: normal speech Sensory Exam: normal sensation Other: A&O x4, generalized weakness Extrem: Other: Left BKA. RLE trace. Thighs symmetric. RUE & LUE 1+ pitting edema Psych: Mental Status: mental status grossly normal Affect: Anxious affect present Other: Good insight and judgment, very pleasant Objective Data Vital Signs Vital Signs: Vital Signs - 24 hr 02/11/25 09:11 02/11/25 09:19 02/11/25 09:30 Temperature 97.9 F Pulse Rate 83 82 81 Respiratory Rate 17 Blood Pressure 151/76 H 150/74 H 141/70 H Pulse Oximetry 97 Oxygen Delivery 02/11/25 11:05 02/11/25 11:15 02/11/25 11:30 Temperature Pulse Rate 82 81 81 Respiratory Rate Blood Pressure 168/78 H 180/86 H 173/86 H Pulse Oximetry Oxygen Delivery 02/11/25 11:59 02/11/25 12:00 02/11/25 12:00 Temperature Pulse Rate 84 80 82 Respiratory Rate Blood Pressure 84/62 L 177/81 H Pulse Oximetry Oxygen Delivery 02/11/25 12:15 02/11/25 12:30 02/11/25 12:45 Temperature Pulse Rate 80 81 83 Respiratory Rate Blood Pressure 181/70 H 181/86 H 189/83 H Pulse Oximetry Oxygen Delivery 02/11/25 13:00 02/11/25 13:15 02/11/25 13:30 Temperature Pulse Rate 81 80 82 Respiratory Rate Blood Pressure 178/84 H 180/91 H 188/88 H Pulse Oximetry Oxygen Delivery 02/11/25 13:45 02/11/25 14:00 02/11/25 14:30 Temperature Pulse Rate 80 80 80 Respiratory Rate Blood Pressure 182/86 H 184/89 H 186/83 H Pulse Oximetry Oxygen Delivery 02/11/25 14:45 02/11/25 14:52 02/11/25 15:05 Temperature 97.8 F Pulse Rate 80 81 83 Respiratory Rate 15 Blood Pressure 176/86 H 184/87 H 187/86 H Pulse Oximetry 97 Oxygen Delivery 02/11/25 15:30 02/11/25 15:32 02/11/25 16:00 Temperature 97.4 F L Pulse Rate 85 85 83 Respiratory Rate Blood Pressure 178/72 H Pulse Oximetry 95 Oxygen Delivery 02/11/25 20:00 02/11/25 20:00 02/11/25 20:16 Temperature Pulse Rate 86 82 Respiratory Rate Blood Pressure Pulse Oximetry Oxygen Delivery Room Air 02/11/25 21:41 02/12/25 00:00 02/12/25 04:00 Temperature 97.8 F Pulse Rate 83 77 79 Respiratory Rate 18 Blood Pressure 139/57 L Pulse Oximetry 99 Oxygen Delivery 02/12/25 06:00 Temperature 98.0 F Pulse Rate 78 Respiratory Rate 18 Blood Pressure 136/63 Pulse Oximetry 99 Oxygen Delivery Intake/Output Intake/Output: Intake & Output 02/09/25 02/10/25 02/11/25 02/12/25 23:59 23:59 23:59 23:59 Intake Total 1120 1470 480 400 Output Total 5000 925 5450 400 Balance -3880 545 -4970 0 Meds/Results Medications: Active Medications Generic Name Dose Route Start Last Admin Trade Name Freq PRN Reason Stop Dose Admin Acetaminophen 650 mg 02/05/25 20:41 02/08/25 21:04 Acetaminophen 325 Mg Tablet PO 650 mg Q4H PRN Administration Mild Pain (1-3) or Fever Hydrocodone Bitart/Acetaminophen 1 tab 02/08/25 11:49 Hydrocodone/Acetaminophen (*Crx) 5-325 Mg Tablet PO Q4H PRN Pain Rated 4-6 Alteplase, Recombinant 2 mg 02/11/25 10:00 02/11/25 10:13 Alteplase 2 Mg Vial (Cathflo) IV PUSH 2 mg ONCE PRN Administration Line Occlusion Alteplase, Recombinant 2 mg 02/11/25 10:01 02/11/25 10:14 Alteplase 2 Mg Vial (Cathflo) IV PUSH 2 mg ONCE PRN Administration Line Occlusion Bumetanide 2 mg 02/07/25 09:00 02/11/25 18:44 Bumetanide Inj 1 Mg/4 Ml Vial IV PUSH 2 mg TID MARGUERITE Administration Buspirone HCl 10 mg 02/10/25 12:43 02/11/25 15:32 Buspirone Hcl 10 Mg Tablet PO 10 mg BID PRN Administration Anxiety Carvedilol 25 mg 02/11/25 21:00 02/11/25 20:16 Carvedilol 25 Mg Tablet PO 25 mg Q12HR MARGUERITE Administration Dextrose 12.5 gm 02/05/25 21:36 Dextrose 50% 25 Gm/50 Ml Syringe IV PUSH PRN PRN Hypoglycemia Protocol Epoetin Sergio-epbx 10,000 units 02/12/25 18:41 Epoetin Sergio-Epbx 10,000 Units/Ml Vial IV PUSH 02/12/25 18:42 ONCE ONE Glucagon 1 mg 02/05/25 21:36 Glucagon For Inj 1 Mg Vial IM PRN PRN Hypoglycemia Protocol Glucose 15 gm 02/05/25 21:36 Glucose Oral Gel 15 Gm Of Glucse In 37.5 Gm Tube PO PRN PRN Hypoglycemia Protocol Heparin Sodium (Porcine) 1,000 units 02/11/25 11:47 02/11/25 12:03 Heparin Sodium 1,000 Units/Ml Vial IV PUSH 1,000 units Q1H PRN Administration DIALYSIS Hydralazine HCl 10 mg 02/05/25 20:41 Hydralazine Hcl 20 Mg/Ml Vial IV PUSH Q4H PRN Blood Pressure - High, >180/90 Hydralazine HCl 100 mg 02/11/25 21:00 02/11/25 20:31 Hydralazine Hcl 50 Mg Tablet PO 100 mg QID MARGUERITE Administration Dextrose 1,000 mls @ 100 mls/hr 02/05/25 21:36 Dextrose 5% 1,000 Ml IVPB PRN PRN Hypoglycemia Protocol Albumin Human 50 mls @ 999 mls/hr 02/09/25 06:57 Albutein IVPB 03/11/25 06:56 Q10M PRN HYPOTENSION Insulin Aspart 4 - 8 units 02/06/25 08:00 02/11/25 18:04 Insulin Aspart (*Bkc) 100 Units/Ml SUB-Q Not Given TIDWM MARGUERITE Protocol Insulin Aspart 2 - 4 units 02/05/25 21:45 02/11/25 20:30 Insulin Aspart (*Bkc) 100 Units/Ml SUB-Q 2 units HS MARGUERITE Administration Protocol Metolazone 5 mg 02/07/25 09:00 02/11/25 15:32 Metolazone 5 Mg Tablet PO 5 mg QAM MARGUERITE Administration Morphine Sulfate 2 mg 02/05/25 21:29 02/11/25 20:31 Morphine Sulfate (*Crx) 4 Mg/Ml Inj IV PUSH 2 mg Q4H PRN Administration Pain Rated 7-10 Ondansetron HCl 4 mg 02/05/25 20:41 Ondansetron Inj 4 Mg/2 Ml Vial IV PUSH Q6H PRN Nausea And Vomiting Oxycodone HCl 5 mg 02/08/25 11:08 02/11/25 20:17 Oxycodone Hcl (*Crx) 5 Mg Tab Ir PO 5 mg Q6H PRN Administration Pain Rated 7-10 Radiology Results: ITS Impressions Renal Ultrasound 02/06/25 17:09 IMPRESSION: Right kidney is unremarkable. Left kidney is not visualized. Chest X-Ray 02/08/25 11:41 IMPRESSION: 1. Likely tunneled large-bore dual-lumen] central venous catheter with distal tip in the midsuperior vena cava. 2. Pleural effusions with associated bibasilar atelectasis and/or pneumonia. Venous Doppler Study 02/10/25 17:43 Impression: Negative for DVT. Labs Labs: Laboratory Results - last 24 hr 02/07/25 02/07/25 02/11/25 04:57 05:06 14:11 WBC 7.4 RBC 4.27 Hgb 10.0 L Hct 33.4 L MCV 78.2 L MCH 23.4 L MCHC 29.9 L RDW 21.5 H Plt Count 418 H MPV 9.8 Immature Gran % (Auto) 0.4 Neut % (Auto) 64.4 Lymph % (Auto) 15.2 L [place] % (Auto) 14.6 H Eos % (Auto) 4.6 H Baso % (Auto) 0.8 Lymph # (Auto) 1.13 [place] # (Auto) 1.1 H Eos # (Auto) 0.3 Baso # (Auto) 0.1 Abs Immat Gran (auto) 0.03 Absolute Neuts (auto) 4.8 Absolute Nucleated RBC 0.000 Band Neutrophils % 0 Nucleated RBC % 0.0 Platelet Estimate Increased Hypochromasia 1+ Anisocytosis 3+ Schistocytes None seen Sodium Potassium Chloride Carbon Dioxide Anion Gap BUN Creatinine Estim Creat Clear Calc Estimated GFR Glucose POC Capillary Glucose Calcium Total Bilirubin AST ALT Alkaline Phosphatase Total Protein Albumin IgG 1066 IgA 295 IgM 47 JULIA Interpretation Comment DIDIER Screen Negative Glomerular Base Memb Ab <0.2 02/11/25 02/11/25 02/12/25 16:35 20:17 04:46 WBC 7.6 RBC 3.96 L Hgb 9.3 L Hct 31.0 L MCV 78.3 L MCH 23.5 L MCHC 30.0 L RDW 21.6 H Plt Count 439 H MPV 10.1 Immature Gran % (Auto) 0.3 Neut % (Auto) 57.9 Lymph % (Auto) 19.8 [place] % (Auto) 14.2 H Eos % (Auto) 6.9 H Baso % (Auto) 0.9 Lymph # (Auto) 1.50 [place] # (Auto) 1.1 H Eos # (Auto) 0.5 H Baso # (Auto) 0.1 Abs Immat Gran (auto) 0.02 Absolute Neuts (auto) 4.4 Absolute Nucleated RBC 0.000 Band Neutrophils % Nucleated RBC % 0.0 Platelet Estimate Hypochromasia Anisocytosis Schistocytes Sodium 132 L Potassium 3.8 Chloride 103 Carbon Dioxide 24 Anion Gap 5 BUN 38 H Creatinine 5.08 H Estim Creat Clear Calc 17 Estimated GFR 9 L Glucose 115 H POC Capillary Glucose 110 H 206 H Calcium 7.6 L Total Bilirubin 0.3 AST 20 ALT 13 Alkaline Phosphatase 82 Total Protein 5.1 L Albumin 2.4 L IgG IgA IgM JULIA Interpretation DIDIER Screen Glomerular Base Memb Ab 02/12/25 07:53 WBC RBC Hgb Hct MCV MCH MCHC RDW Plt Count MPV Immature Gran % (Auto) Neut % (Auto) Lymph % (Auto) [place] % (Auto) Eos % (Auto) Baso % (Auto) Lymph # (Auto) [place] # (Auto) Eos # (Auto) Baso # (Auto) Abs Immat Gran (auto) Absolute Neuts (auto) Absolute Nucleated RBC Band Neutrophils % Nucleated RBC % Platelet Estimate Hypochromasia Anisocytosis Schistocytes Sodium Potassium Chloride Carbon Dioxide Anion Gap BUN Creatinine Estim Creat Clear Calc Estimated GFR Glucose POC Capillary Glucose 112 H Calcium Total Bilirubin AST ALT Alkaline Phosphatase Total Protein Albumin IgG IgA IgM JULIA Interpretation DIDEIR Screen Glomerular Base Memb Ab Quality VTE Prophylaxis VTE prophylaxis: mechanical ordered
--- NOTE | 2025-02-12 09:18 | PM.PNCARD ---
Progress Note: A&P Assessment and Plan (1) CHF (congestive heart failure): Qualifiers: Heart failure type: unspecified Heart failure chronicity: acute Qualified Code(s): I50.9 - Heart failure, unspecified Code(s): I50.9 - Heart failure, unspecified Status: Acute (2) Hypertension: Qualifiers: Hypertension type: primary hypertension Qualified Code(s): I10 - Essential (primary) hypertension Code(s): I10 - Essential (primary) hypertension Status: Acute (3) Diabetes: Qualifiers: Diabetes mellitus type: type 2 Diabetes mellitus [facility] insulin use: without rodent exterminator use Diabetes mellitus complication status: with kidney complications Diabetes mellitus complication detail: with chronic kidney disease Chronic kidney disease stage: unspecified stage Qualified Code(s): E11.22 - Type 2 diabetes mellitus with diabetic chronic kidney disease Code(s): E11.9 - Type 2 diabetes mellitus without complications Status: Chronic (4) Acute kidney injury: Code(s): N17.9 - Acute kidney failure, unspecified Status: Acute Plan 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 EF of 30-35% per echo. Most likely secondary to uncontrolled HTN d/t medication non-compliance. -initiated on renal replacement therapy with hemodialysis which is helping with volume status. Diuresis with bumetanide managed by Nephrology. -increased carvedilol dose to 25 mg p.o. b.i.d. with holding parameters. Continue hydralazine. No ARB/ARNI or SGLT-2 at this time in setting of GARRISON/CKD. -blood pressure is better controlled this am. -LV systolic dysfunction: Unclear if ischemic vs non-ischemic, likely secondary to uncontrolled HTN. Will need ischemic eval as an outpatient. Life vest prior to discharge-patient agreeable and will order. -management other medical problems as per primary team. 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 Secondary to osteomyelitis and poorly controlled diabetes. Treatment strategies discussed with the patient. -consider evaluation for sleep apnea as an outpatient. -emphasize importance of medication compliance and follow-up. -cardiology follow-up of hospital discharge. Subjective Date/time seen: 02/12/25 09:18 Interval history: First dialysis treatment 02/08. Tolerated well. Tolerated diet. Denied chest pain or shortness of breath. Swelling down a little. Denied GI or difficulties. 02/09/2025-patient reports improvement in dyspnea. No chest pain. She is in sinus rhythm on telemetry. Underwent hemo dialysis yesterday. 02/12/25-Patient sitting up in bed. Still reports edema, more significant in UE. Still with SOB, but improved. No chest pain or pressure. Review of Systems Review of Systems: All systems reviewed & are unremarkable except as noted in HPI and below Exam Const: General: comfortable, ill appearing chronically, tired appearing and uncomfortable Neck: Neck: supple and no JVD Carotids: bruit Resp: Effort & Inspection: normal respiratory effort Auscultation: clear to auscultation bilaterally and diminished lung sounds Cardio: Rate: regular rate Rhythm: regular rhythm Heart sounds: no gallops, no murmurs and no rubs GI: Auscultation: normal bowel sounds Skin: General skin exam: rashes and/or lesions noted Extrem: General: edema Other: anasarca Lt BKA Psych: Mental Status: mental status grossly normal Affect: normal affect Objective Data Vital Signs Vital Signs: Vital Signs - 24 hr 02/11/25 09:19 02/11/25 09:30 02/11/25 11:05 Temperature Pulse Rate 82 81 82 Respiratory Rate Blood Pressure 150/74 H 141/70 H 168/78 H Pulse Oximetry Oxygen Delivery 02/11/25 11:15 02/11/25 11:30 02/11/25 11:59 Temperature Pulse Rate 81 81 84 Respiratory Rate Blood Pressure 180/86 H 173/86 H 84/62 L Pulse Oximetry Oxygen Delivery 02/11/25 12:00 02/11/25 12:00 02/11/25 12:15 Temperature Pulse Rate 80 82 80 Respiratory Rate Blood Pressure 177/81 H 181/70 H Pulse Oximetry Oxygen Delivery 02/11/25 12:30 02/11/25 12:45 02/11/25 13:00 Temperature Pulse Rate 81 83 81 Respiratory Rate Blood Pressure 181/86 H 189/83 H 178/84 H Pulse Oximetry Oxygen Delivery 02/11/25 13:15 02/11/25 13:30 02/11/25 13:45 Temperature Pulse Rate 80 82 80 Respiratory Rate Blood Pressure 180/91 H 188/88 H 182/86 H Pulse Oximetry Oxygen Delivery 02/11/25 14:00 02/11/25 14:30 02/11/25 14:45 Temperature Pulse Rate 80 80 80 Respiratory Rate Blood Pressure 184/89 H 186/83 H 176/86 H Pulse Oximetry Oxygen Delivery 02/11/25 14:52 02/11/25 15:05 02/11/25 15:30 Temperature 36.6 C 36.3 C L Pulse Rate 81 83 85 Respiratory Rate 15 Blood Pressure 184/87 H 187/86 H 178/72 H Pulse Oximetry 97 95 Oxygen Delivery 02/11/25 15:32 02/11/25 16:00 02/11/25 20:00 Temperature Pulse Rate 85 83 Respiratory Rate Blood Pressure Pulse Oximetry Oxygen Delivery Room Air 02/11/25 20:00 02/11/25 20:16 02/11/25 21:41 Temperature 36.6 C Pulse Rate 86 82 83 Respiratory Rate 18 Blood Pressure 139/57 L Pulse Oximetry 99 Oxygen Delivery 02/12/25 00:00 02/12/25 04:00 02/12/25 06:00 Temperature 36.7 C Pulse Rate 77 79 78 Respiratory Rate 18 Blood Pressure 136/63 Pulse Oximetry 99 Oxygen Delivery Intake/Output Intake/Output: Intake & Output 02/09/25 02/10/25 02/11/25 02/12/25 23:59 23:59 23:59 23:59 Intake Total 1120 1470 480 640 Output Total 2008 922 5443 400 Balance -3880 545 -6220 240 Meds/Results Medications: Active Medications Generic Name Dose Route Start Last Admin Trade Name Freq PRN Reason Stop Dose Admin Acetaminophen 650 mg 02/05/25 20:41 02/08/25 21:04 Acetaminophen 325 Mg Tablet PO 650 mg Q4H PRN Administration Mild Pain (1-3) or Fever Hydrocodone Bitart/Acetaminophen 1 tab 02/08/25 11:49 Hydrocodone/Acetaminophen (*Crx) 5-325 Mg Tablet PO Q4H PRN Pain Rated 4-6 Alteplase, Recombinant 2 mg 02/11/25 10:00 02/11/25 10:13 Alteplase 2 Mg Vial (Cathflo) IV PUSH 2 mg ONCE PRN Administration Line Occlusion Alteplase, Recombinant 2 mg 02/11/25 10:01 02/11/25 10:14 Alteplase 2 Mg Vial (Cathflo) IV PUSH 2 mg ONCE PRN Administration Line Occlusion Bumetanide 2 mg 02/07/25 09:00 02/11/25 18:44 Bumetanide Inj 1 Mg/4 Ml Vial IV PUSH 2 mg TID MARGUERITE Administration Buspirone HCl 10 mg 02/10/25 12:43 02/11/25 15:32 Buspirone Hcl 10 Mg Tablet PO 10 mg BID PRN Administration Anxiety Carvedilol 25 mg 02/11/25 21:00 02/11/25 20:16 Carvedilol 25 Mg Tablet PO 25 mg Q12HR MARGUERITE Administration Dextrose 12.5 gm 02/05/25 21:36 Dextrose 50% 25 Gm/50 Ml Syringe IV PUSH PRN PRN Hypoglycemia Protocol Epoetin Sergio-epbx 10,000 units 02/12/25 18:41 Epoetin Sergio-Epbx 10,000 Units/Ml Vial IV PUSH 02/12/25 18:42 ONCE ONE Glucagon 1 mg 02/05/25 21:36 Glucagon For Inj 1 Mg Vial IM PRN PRN Hypoglycemia Protocol Glucose 15 gm 02/05/25 21:36 Glucose Oral Gel 15 Gm Of Glucse In 37.5 Gm Tube PO PRN PRN Hypoglycemia Protocol Heparin Sodium (Porcine) 1,000 units 02/11/25 11:47 02/11/25 12:03 Heparin Sodium 1,000 Units/Ml Vial IV PUSH 1,000 units Q1H PRN Administration DIALYSIS Hydralazine HCl 10 mg 02/05/25 20:41 Hydralazine Hcl 20 Mg/Ml Vial IV PUSH Q4H PRN Blood Pressure - High, >180/90 Hydralazine HCl 100 mg 02/11/25 21:00 02/11/25 20:31 Hydralazine Hcl 50 Mg Tablet PO 100 mg QID MARGUERITE Administration Dextrose 1,000 mls @ 100 mls/hr 02/05/25 21:36 Dextrose 5% 1,000 Ml IVPB PRN PRN Hypoglycemia Protocol Albumin Human 50 mls @ 999 mls/hr 02/09/25 06:57 Albutein IVPB 03/11/25 06:56 Q10M PRN HYPOTENSION Insulin Aspart 4 - 8 units 02/06/25 08:00 02/12/25 08:53 Insulin Aspart (*Bkc) 100 Units/Ml SUB-Q Not Given TIDWM MARGUERITE Protocol Insulin Aspart 2 - 4 units 02/05/25 21:45 02/11/25 20:30 Insulin Aspart (*Bkc) 100 Units/Ml SUB-Q 2 units HS MARGUERITE Administration Protocol Metolazone 5 mg 02/07/25 09:00 02/11/25 15:32 Metolazone 5 Mg Tablet PO 5 mg QAM MARGUERITE Administration Morphine Sulfate 2 mg 02/05/25 21:29 02/11/25 20:31 Morphine Sulfate (*Crx) 4 Mg/Ml Inj IV PUSH 2 mg Q4H PRN Administration Pain Rated 7-10 Ondansetron HCl 4 mg 02/05/25 20:41 Ondansetron Inj 4 Mg/2 Ml Vial IV PUSH Q6H PRN Nausea And Vomiting Oxycodone HCl 5 mg 02/08/25 11:08 02/11/25 20:17 Oxycodone Hcl (*Crx) 5 Mg Tab Ir PO 5 mg Q6H PRN Administration Pain Rated 7-10 Radiology Results: ITS Impressions Renal Ultrasound 02/06/25 17:09 IMPRESSION: Right kidney is unremarkable. Left kidney is not visualized. Chest X-Ray 02/08/25 11:41 IMPRESSION: 1. Likely tunneled large-bore dual-lumen] central venous catheter with distal tip in the midsuperior vena cava. 2. Pleural effusions with associated bibasilar atelectasis and/or pneumonia. Venous Doppler Study 02/10/25 17:43 Impression: Negative for DVT. Labs Labs: Laboratory Results - last 24 hr 02/07/25 02/07/25 02/11/25 04:57 05:06 14:11 WBC 7.4 RBC 4.27 Hgb 10.0 L Hct 33.4 L MCV 78.2 L MCH 23.4 L MCHC 29.9 L RDW 21.5 H Plt Count 418 H MPV 9.8 Immature Gran % (Auto) 0.4 Neut % (Auto) 64.4 Lymph % (Auto) 15.2 L [place] % (Auto) 14.6 H Eos % (Auto) 4.6 H Baso % (Auto) 0.8 Lymph # (Auto) 1.13 [place] # (Auto) 1.1 H Eos # (Auto) 0.3 Baso # (Auto) 0.1 Abs Immat Gran (auto) 0.03 Absolute Neuts (auto) 4.8 Absolute Nucleated RBC 0.000 Band Neutrophils % 0 Nucleated RBC % 0.0 Platelet Estimate Increased Hypochromasia 1+ Anisocytosis 3+ Schistocytes None seen Sodium Potassium Chloride Carbon Dioxide Anion Gap BUN Creatinine Estim Creat Clear Calc Estimated GFR Glucose POC Capillary Glucose Calcium Total Bilirubin AST ALT Alkaline Phosphatase Total Protein Albumin IgG 1066 IgA 295 IgM 47 JULIA Interpretation Comment DIDIER Screen Negative Glomerular Base Memb Ab <0.2 02/11/25 02/11/25 02/12/25 16:35 20:17 04:46 WBC 7.6 RBC 3.96 L Hgb 9.3 L Hct 31.0 L MCV 78.3 L MCH 23.5 L MCHC 30.0 L RDW 21.6 H Plt Count 439 H MPV 10.1 Immature Gran % (Auto) 0.3 Neut % (Auto) 57.9 Lymph % (Auto) 19.8 [place] % (Auto) 14.2 H Eos % (Auto) 6.9 H Baso % (Auto) 0.9 Lymph # (Auto) 1.50 [place] # (Auto) 1.1 H Eos # (Auto) 0.5 H Baso # (Auto) 0.1 Abs Immat Gran (auto) 0.02 Absolute Neuts (auto) 4.4 Absolute Nucleated RBC 0.000 Band Neutrophils % Nucleated RBC % 0.0 Platelet Estimate Hypochromasia Anisocytosis Schistocytes Sodium 132 L Potassium 3.8 Chloride 103 Carbon Dioxide 24 Anion Gap 5 BUN 38 H Creatinine 5.08 H Estim Creat Clear Calc 17 Estimated GFR 9 L Glucose 115 H POC Capillary Glucose 110 H 206 H Calcium 7.6 L Total Bilirubin 0.3 AST 20 ALT 13 Alkaline Phosphatase 82 Total Protein 5.1 L Albumin 2.4 L IgG IgA IgM JULIA Interpretation DIDIER Screen Glomerular Base Memb Ab 02/12/25 07:53 WBC RBC Hgb Hct MCV MCH MCHC RDW Plt Count MPV Immature Gran % (Auto) Neut % (Auto) Lymph % (Auto) [place] % (Auto) Eos % (Auto) Baso % (Auto) Lymph # (Auto) [place] # (Auto) Eos # (Auto) Baso # (Auto) Abs Immat Gran (auto) Absolute Neuts (auto) Absolute Nucleated RBC Band Neutrophils % Nucleated RBC % Platelet Estimate Hypochromasia Anisocytosis Schistocytes Sodium Potassium Chloride Carbon Dioxide Anion Gap BUN Creatinine Estim Creat Clear Calc Estimated GFR Glucose POC Capillary Glucose 112 H Calcium Total Bilirubin AST ALT Alkaline Phosphatase Total Protein Albumin IgG IgA IgM JULIA Interpretation DIDIER Screen Glomerular Base Memb Ab
[2025-02-12] MEDS: BUMETANIDE INJ 1 MG/4 ML VIAL 2 MG IV PUSH ×2 (09:22→17:50)
--- NOTE | 2025-02-12 14:56 | PC.NURSE ---
Pt went dialysis at 13:20.
[2025-02-12] MEDS: EPOETIN ALFA-EPBX 10,000 UNITS/ML VIAL 10000 UNITS IV PUSH (15:40)
--- NOTE | 2025-02-12 17:13 | P.PNNP_ITS ---
Progress Note: A&P Assessment and Plan (1) Acute kidney injury: Code(s): N17.9 - Acute kidney failure, unspecified Status: Acute Assessment and Plan: * as noted by admission labs (creatinine 10.26mg/dL) * unclear acuity versus chronicity of this issue (see #2) * complicated/associated with volume overload/anasarca and metabolic acidosis * etiology not clear... * evaluation to date noted: * urine electrolytes non-prerenal * UA with blood and protein * CPK mildly elevated but not enough to affect kidney function * renal ultrasound okay (unable to visualize left kidney) * nephrotic range proteinuria noted (> 10 grams) * serological evaluation noted (negative ANCA/dsDNA-ab/SPEP...rest are pending) * elevated CRP and ESR noted * no significant improvement with diuretic therapy * s/p HD catheter placement on 02/08 * initiated on [facility] IN CHARGE/HD on 02/08 * HD/DUF on 02/08, 02/09, and 02/11 * HD today * planning renal biopsy for a definitive diagnosis of her renal dysfunction * tentatively scheduled for tomorrow * follow trend of repeat labs and UOP (2) Stage 3b chronic kidney disease: Code(s): N18.32 - Chronic kidney disease, stage 3b Status: Chronic Assessment and Plan: * creatinine down to 1.5mg/dL on September 2022 discharge * unclear if renal function recovered to normal (creatinine did go down as low as 0.7mg/dL during August/September 2022 hospitalization) * multiple risk factors for CKD: * hypertension * diabetes * vascular disease * recently discovered cardiomyopathy * other(?) (3) Volume overload: Code(s): E87.70 - Fluid overload, unspecified Status: Acute Assessment and Plan: * as noted by clinical exam (anasarca) * multifactorial etiology: * renal dysfunction * nephrotic range proteinuria/nephrotic syndrome * cardiomyopathy * vascular disease * no real improvement with diuretics * however, still making some urine with use of bumex/metolazone * continue fluid removal with HD/DUF as tolerated (4) Metabolic acidosis: Code(s): E87.20 - Acidosis, unspecified Status: Acute Assessment and Plan: * resolved * quite severe on presentation (CO2 < 5) * presumably due to renal dysfunction * should remain stable with HD treatments (5) Cardiomyopathy: Code(s): I42.9 - Cardiomyopathy, unspecified Status: Acute Assessment and Plan: * acute versus chronic? * ischemic versus non-ischemic? * Echo results noted (02/06): * left ventricular systolic function is severely reduced, estimated at 30 - 35% * left ventricular diastolic function is grade I diastolic dysfunction * mild to moderate mitral valve regurgitation * mild to moderate tricuspid valve regurgitation * moderate pulmonary hypertension, estimated pulmonary arterial systolic pressure is 47 mmHg * mild pulmonic regurgitation * Cardiology following * GMDT maybe somewhat limited by her severe renal dysfunction (6) Hypertension: Qualifiers: Hypertension type: primary hypertension Qualified Code(s): I10 - Essential (primary) hypertension Code(s): I10 - Essential (primary) hypertension Status: Acute Assessment and Plan: * quite elevated on ER presentation (systolic BP > 200) * still fluctuating but better control in general * on oral hydralazine * continue carvedilol * dialysis/fluid removal should/may help as well * follow trend of hemodynamics (7) Anemia: Qualifiers: Anemia type: due to chronic kidney disease Chronic kidney disease stage: unspecified stage Qualified Code(s): N18.9 - Chronic kidney disease, unspecified; D63.1 - Anemia in chronic kidney disease Code(s): D64.9 - Anemia, unspecified Status: Acute Assessment and Plan: * at least partly related to renal dysfunction * anemia studies demonstrate iron deficiency * getting IV iron * Epogen with HD * follow trend of H/H (8) Diabetes: Qualifiers: Diabetes mellitus type: type 2 Diabetes mellitus [facility] insulin use: without rn long term care use Diabetes mellitus complication status: with kidney complications Diabetes mellitus complication detail: with chronic kidney disease Chronic kidney disease stage: unspecified stage Qualified Code(s): E 11.22 - Type 2 diabetes mellitus with diabetic chronic kidney disease Code(s): E11.9 - Type 2 diabetes mellitus without complications Status: Chronic Assessment and Plan: * follow accu-cheks * glycemic control per hospitalist Will continue to follow. L Subjective Date/time seen: 02/12/25 17:13 Interval history: Follow-up for acute kidney injury/acute renal failure (on chronic kidney disease?) and anasarca. Tolerating dialysis treatment at the time of my visit (seen on HD at 5:03pm); tolerated dialysis treatment yesterday as well; no apparent distress but still having discomfort with upper extremity swelling/edema; no other acute issues voiced at this time. Exam 2 Narrative: General: mildly anxious but WD/WN female in NAD Heart: normal S1 and S2; no rub Lungs: decreased at the bases Abdomen: obese but soft, nontender, nondistended, positive bowel sounds Extremities: no cyanosis or clubbing; 2+ edema in RLE and BUEs; s/p left BKA Skin: warm and intact Objective Data Vital Signs Vital Signs: Vital Signs Temp Pulse Resp BP Pulse Ox O2 Del Method 02/12/25 17:00 82 159/77 H 02/12/25 16:45 82 167/76 H 02/12/25 16:30 83 157/76 H 02/12/25 16:15 82 152/71 H 02/12/25 16:00 84 02/12/25 16:00 84 154/72 H 02/12/25 15:45 84 151/68 H 02/12/25 15:30 83 152/71 H 02/12/25 15:15 82 156/68 H 02/12/25 15:00 81 135/61 02/12/25 14:45 81 129/62 02/12/25 14:30 81 138/68 02/12/25 14:15 81 118/66 02/12/25 14:00 82 137/65 02/12/25 13:50 82 132/65 02/12/25 13:37 98.2 F 82 14 143/70 H 99 02/12/25 12:00 79 02/12/25 09:21 78 02/12/25 08:00 80 02/12/25 08:00 Room Air 02/12/25 06:00 98.0 F 78 18 136/63 99 02/12/25 04:00 79 02/12/25 00:00 77 02/11/25 21:41 97.8 F 83 18 139/57 L 99 Intake/Output Intake/Output: Intake & Output 02/09/25 02/10/25 02/11/25 02/12/25 23:59 23:59 23:59 23:59 Intake Total 1120 1470 480 730 Output Total 5000 926 2605 5450 Balance -6364 099 -3192 -2061 Meds/Results Medications: Active Medications Generic Name Dose Route Start Last Admin Trade Name Freq PRN Reason Stop Dose Admin Acetaminophen 650 mg 02/05/25 20:41 02/08/25 21:04 Acetaminophen 325 Mg Tablet PO 650 mg Q4H PRN Administration Mild Pain (1-3) or Fever Hydrocodone Bitart/Acetaminophen 1 tab 02/08/25 11:49 Hydrocodone/Acetaminophen (*Crx) 5-325 Mg Tablet PO Q4H PRN Pain Rated 4-6 Alteplase, Recombinant 2 mg 02/11/25 10:00 02/11/25 10:13 Alteplase 2 Mg Vial (Cathflo) IV PUSH 2 mg ONCE PRN Administration Line Occlusion Alteplase, Recombinant 2 mg 02/11/25 10:01 02/11/25 10:14 Alteplase 2 Mg Vial (Cathflo) IV PUSH 2 mg ONCE PRN Administration Line Occlusion Bumetanide 2 mg 02/07/25 09:00 02/12/25 17:50 Bumetanide Inj 1 Mg/4 Ml Vial IV PUSH 2 mg TID MARGUERITE Administration Buspirone HCl 10 mg 02/10/25 12:43 02/12/25 14:07 Buspirone Hcl 10 Mg Tablet PO 10 mg BID PRN Administration Anxiety Carvedilol 25 mg 02/11/25 21:00 02/12/25 09:21 Carvedilol 25 Mg Tablet PO 25 mg Q12HR MARGUERITE Administration Dextrose 12.5 gm 02/05/25 21:36 Dextrose 50% 25 Gm/50 Ml Syringe IV PUSH PRN PRN Hypoglycemia Protocol Glucagon 1 mg 02/05/25 21:36 Glucagon For Inj 1 Mg Vial IM PRN PRN Hypoglycemia Protocol Glucose 15 gm 02/05/25 21:36 Glucose Oral Gel 15 Gm Of Glucse In 37.5 Gm Tube PO PRN PRN Hypoglycemia Protocol Heparin Sodium (Porcine) 1,000 units 02/11/25 11:47 02/11/25 12:03 Heparin Sodium 1,000 Units/Ml Vial IV PUSH 1,000 units Q1H PRN Administration DIALYSIS Hydralazine HCl 10 mg 02/05/25 20:41 Hydralazine Hcl 20 Mg/Ml Vial IV PUSH Q4H PRN Blood Pressure - High, >180/90 Hydralazine HCl 100 mg 02/12/25 17:00 02/12/25 17:50 Hydralazine Hcl 50 Mg Tablet PO 100 mg QID MARGUERITE Administration Dextrose 1,000 mls @ 100 mls/hr 02/05/25 21:36 Dextrose 5% 1,000 Ml IVPB PRN PRN Hypoglycemia Protocol Albumin Human 50 mls @ 999 mls/hr 02/09/25 06:57 Albutein IVPB 03/11/25 06:56 Q10M PRN HYPOTENSION Insulin Aspart 4 - 8 units 02/06/25 08:00 02/12/25 18:08 Insulin Aspart (*Bkc) 100 Units/Ml SUB-Q Not Given TIDWM MARGUERITE Protocol Insulin Aspart 2 - 4 units 02/05/25 21:45 02/11/25 20:30 Insulin Aspart (*Bkc) 100 Units/Ml SUB-Q 2 units HS MARGUERITE Administration Protocol Metolazone 5 mg 02/07/25 09:00 02/12/25 09:22 Metolazone 5 Mg Tablet PO 5 mg QAM MARGUERITE Administration Morphine Sulfate 2 mg 02/05/25 21:29 02/12/25 17:49 Morphine Sulfate (*Crx) 4 Mg/Ml Inj IV PUSH 2 mg Q4H PRN Administration Pain Rated 7-10 Ondansetron HCl 4 mg 02/05/25 20:41 Ondansetron Inj 4 Mg/2 Ml Vial IV PUSH Q6H PRN Nausea And Vomiting Oxycodone HCl 5 mg 02/08/25 11:08 02/11/25 20:17 Oxycodone Hcl (*Crx) 5 Mg Tab Ir PO 5 mg Q6H PRN Administration Pain Rated 7-10 Radiology Results: ITS Impressions Renal Ultrasound 02/06/25 17:09 IMPRESSION: Right kidney is unremarkable. Left kidney is not visualized. Chest X-Ray 02/08/25 11:41 IMPRESSION: 1. Likely tunneled large-bore dual-lumen] central venous catheter with distal tip in the midsuperior vena cava. 2. Pleural effusions with associated bibasilar atelectasis and/or pneumonia. Venous Doppler Study 02/10/25 17:43 Impression: Negative for DVT. Labs Labs: Laboratory Tests 02/12/25 04:46 02/12/25 04:46 Calcium 7.6 L Total Bilirubin 0.3 AST 20 ALT 13 Alkaline Phosphatase 82 Total Protein 5.1 L Albumin 2.4 L
[2025-02-12] MEDS: MORPHINE SULFATE (*CRX) 4 MG/ML INJ 2 MG IV PUSH (17:49)
--- NOTE | 2025-02-12 18:57 | PC.NURSE ---
On 02/12/25, the RN, Dulce Scott, provided care and completed [facility] documentation on this patient. I have reviewed the RN's documentation and agree with the findings.
[2025-02-12] MEDS: HYDROcodone/acetaminophen (*CRX) 5-325 MG TABLET 1 TAB PO (21:09)
[2025-02-13] VITALS (14 sets, daily range): BP systolic 135–162; BP diastolic 61–70; PULSE 76–83; RESP 14–16; TEMP 36.4–36.8; O2SAT 95–97
[2025-02-13] MEDS: hydrOXYzine HCL 12.5 MG TABLET PO (00:12)
[2025-02-13 05:17] LABS: Hematocrit 31.0 % (37.0-47.0); Hemoglobin 9.3 g/dL (12.0-15.0); Immature Granulocyte Percent A 0.1 % (0-0.5); Lymphocytes Absolute Auto 1.64 K/mm3 (0.9-3.2); Mean Corpuscular HGB Conc 30.0 g/dl (32-36); Mean Corpuscular Hemoglobin 23.6 pg (26-34); Mean Corpuscular Volume 78.7 fl (80-100); Nucleated Red Blood Cells Absolute Auto 0.000 K/mm3 (0.0-0.012); Nucleated Red Blood Cells Perc 0.0 % (0.0-0.2); Platelet Count Result 455 k/mm3 (150-375); Red Blood Count 3.94 M/mm3 (4.2-5.4); White Blood Count 7.7 K/mm3 (4.5-10.0)
[2025-02-13 05:29] LABS: INR 1.0; Partial Thromboplastin Time 25.5 Seconds (22.3-36.8); Prothrombin Time 13.7 Seconds (11.1-14.7)
[2025-02-13 05:40] LABS: Alanine Aminotransferase 13 U/L (6-35); Albumin Level 2.6 g/dL (3.5-5.1); Alkaline Phosphatase 87 U/L (38-126); Anion Gap 4 mmol/L (4-12); Aspartate Amino Transferase 19 U/L (14-36); Bilirubin,Total 0.3 mg/dL (0.2-1.3); Blood Urea Nitrogen 29 mg/dL (7-17); Calcium 7.9 mg/dL (8.4-10.2); Carbon Dioxide 28 mmol/L (22-30); Chloride 101 mmol/L (98-107); Estimated CRCL calculation 19 ml/min; Estimated Glomerular Filt Rate 11; Glucose 131 mg/dL (65-110); Potassium 3.6 mmol/L (3.4-5.0); Sodium 133 mmol/L (137-145); Total Protein 5.4 g/dL (6.3-8.2)
--- NOTE | 2025-02-13 07:55 | PCPTNOTE ---
Therapist Started working with pt, however, nurse came in during session to report pt is leaving for a biopsy very soon. Will follow.
--- NOTE | 2025-02-13 08:59 | P.PNIM_ITS ---
Progress Note: A&P Assessment and Plan (1) CHF (congestive heart failure): Qualifiers: Heart failure chronicity: acute Heart failure type: unspecified Qualified Code(s): I50.9 - Heart failure, unspecified Code(s): I50.9 - Heart failure, unspecified Status: Acute Assessment and Plan: Patient originally presented for primary complaint of shortness of breath and right lower extremity swelling (history of left BKA).? CXR showed mild CHF.? BNP greater than 30,000. Given new onset renal failure, may be hypervolemia due to acute renal failure/ESRD verses new onset CHF or combination thereof. - BNP greater than 30,000 upon admission on 02/05 - reviewed chart, no previous echo on file - start Bumex 2 mg b.i.d. IV - monitor I&Os and daily weights - trend renal function - TSH elevated, checking T3/ T4 02/06: - T3 / T4 WDL, pt does not remember when she took Synthroid last - Pt denies SOB and CP. RLE 3+ pitting edema - amber hose ordered today - Pending ECHO --> Left ventricular systolic function is severely reduced, estimated at 30-35. - Cardiology consulted 02/07: 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 EF of 30-35% per echo. Most likely secondary to uncontrolled HTN d/t medication non-compliance. Her CXR shows pleural effusions. Her pBNP is >09772. Agree with IV diuresis at this time, but urine output has been poor. Have discussed with renal and will begin lasix drip at 1mg. Will place fluid restriction. Will need accurate intake and output. Currently on coreg 3.125 mg BID and will uptitrate as tolerated. No ARB/ARNI or SGLT-2 at this time in setting of GARRISON/CKD. -->Will continue with tx, -Lasix gtt has since been discontinued. Increase bumex administration to 2mg IV BID. Pt continues to deny SOB and CP, she reports that she feels a lot more swollen. 02/08: -Pt continues to deny SOB and CP but reports still being swollen in her RUE and RLE. 02/09: Did well with dialysis 02/08, scheduled again today, to [facility] afterwards 02/10: Pt on med [employer] today. Pending neph plan, HD tomorrow. RLE edema improved since I saw her last on 02/08 and denies SOB. She brought to my attention today a spot of erythema to her medial elbow today, no warmth, but also thinks her RUE is more swollen. Ordered US duplex to r/o DVT. 02/11: HD today, US duplex negative. Continues to deny SOB and CP. LUE edema today, continue with Bumex 2g IV TID. 02/12: HD again today. Continues to deny any sx. Continued BUE edema. If still presenting tomorrow after HD today, consider additional imaging. 02/13 Denies shortness of breath (2) Diabetes: Qualifiers: Chronic kidney disease stage: unspecified stage Diabetes mellitus complication detail: with chronic kidney disease Diabetes mellitus complication status: with kidney complications Diabetes mellitus senior care insulin use: without senior care use Diabetes mellitus type: type 2 Qualified Code(s): E11.22 - Type 2 diabetes mellitus with diabetic chronic kidney disease Code(s): E11.9 - Type 2 diabetes mellitus without complications Status: Chronic Assessment and Plan: Patient has a history of type 2 diabetes.? However she has been off of her medications for the past 2 years since 2022.? She has not followed with any providers since 2022.? Diabetes complicated by previous diabetic foot infection requiring a left BKA in 2022. Blood sugars relatively controlled - hypoglycemia protocol - POC blood glucose ACHS - correct regimen ordered - high dose TIDWM and HS - A1C 8.6% on 02/05/2025 - environmental educator consulted - dietitian consulted (3) Elevated TSH: Code(s): R79.89 - Other specified abnormal findings of blood chemistry Status: Acute Assessment and Plan: TSH 6.320 on 02/05.? Previously within normal limits in August of 2022.? Hasn't been taking regularly T3 normal, --Will check T3/T4. --Continue Synthroid (4) Hypertension: Qualifiers: Hypertension type: primary hypertension Qualified Code(s): I10 - Essential (primary) hypertension Code(s): I10 - Essential (primary) hypertension Status: Acute Assessment and Plan: Home meds: Carvedilol 3.125 BID, Hydralazine 50 q6 but untreated, off meds the past 2 years. Arrived significantly hypertensive to [facility], BP 218/115. Titrating meds -restarted Coreg 3.125<25 mg b.i.d --s/p Bumex IV then lasix drip, now on bumex TID --hydralazine 50<100 QID (5) Anemia: Qualifiers: Anemia type: due to chronic kidney disease Chronic kidney disease stage: unspecified stage Qualified Code(s): N18.9 - Chronic kidney disease, unspecified; D63.1 - Anemia in chronic kidney disease Code(s): D64.9 - Anemia, unspecified Status: Acute Assessment and Plan: H&H .07/23 Patient has history of anemia, likely secondary to CKD. Hemoglobin 10.6 upon admission. Previously 7.2 upon discharge on 09/27/2022. 02/05 Ferritin 16, Iron 29, TIBC 400, %Sat 7 02/07 Iron 619, TIBC 375,, %Sat 165 s/p venofer 400mg x1 02/06 - transfuse if <7 (6) Acute kidney injury: Code(s): N17.9 - Acute kidney failure, unspecified Status: Acute Assessment and Plan: Admitted for GARRISON. HD cath placed 02/08. Started on HD. Kidney biopsy done 02/12 Renal US: IMPRESSION: Right kidney is unremarkable. Left kidney is not visualized. --Neph following, daily labs --Needs a dialysis center Pain post kidney biopsy, changing morphine to dilaudid --follow cbc, bmp (7) Anxiety: Code(s): F41.9 - Anxiety disorder, unspecified Status: Acute Assessment and Plan: Pt reporting an increase / ongoing anxiety since being in the hospital. She r eports that she has been rx something in the past for anxiety that she took on a PRN basis and it was non-sedating but she cannot remember the name -Ordered Buspirone 10mg BID PRN for her 02/12 --Pt with another acute anxiety episode today with some itching. One time dose of hydroxyzine 25mg given. Plan Pending HD and kidney biopsy potentially 02/13, monitor volume status & BUE edema Time Spent With Patient Time: 57 minutes Subjective Date/time seen: 02/13/25 08:59 Interval history: VSS. Renal biopsy done today, CT guided. Reports pain post biopsy, attributes to lying on her back, spasms to right leg generalized edema Nephrology folllowing 44 y/o F with PMH of diabetes, left BKA, CKD, depression, anxiety/panic disorder and DKA presents here with shortness of breath, ESRD Review of Systems Review of Systems: All systems reviewed & are unremarkable except as noted in HPI and below Exam Narrative: HEENT: PERRL, sclerae nonicteric, pharyngeal mucosa pink and intact NECK: No JVD, adenopathy, or thyromegaly CHEST: Clear to auscultation. Normal effort. Right chest HD cath HEART: NL S1/S2, regular, no murmur ABDOMEN: BS+, soft, nontender, no mass, no bruits EXTREMITIES: No cyanosis, edema, or clubbing NEUROLOGIC: CN intact and symmetric to inspection MUSCULOSKELETAL: Tone and strength symmetric, left BKA PSYCH: Alert. Oriented to person, place, and time Objective Data Vital Signs Vital Signs: Vital Signs - 24 hr 02/12/25 09:21 02/12/25 12:00 02/12/25 13:37 Temperature 98.2 F Pulse Rate 78 79 82 Respiratory Rate 14 Blood Pressure 143/70 H Pulse Oximetry 99 Oxygen Delivery 02/12/25 13:50 02/12/25 14:00 02/12/25 14:15 Temperature Pulse Rate 82 82 81 Respiratory Rate Blood Pressure 132/65 137/65 118/66 Pulse Oximetry Oxygen Delivery 02/12/25 14:30 02/12/25 14:45 02/12/25 15:00 Temperature Pulse Rate 81 81 81 Respiratory Rate Blood Pressure 138/68 129/62 135/61 Pulse Oximetry Oxygen Delivery 02/12/25 15:15 02/12/25 15:30 02/12/25 15:45 Temperature Pulse Rate 82 83 84 Respiratory Rate Blood Pressure 156/68 H 152/71 H 151/68 H Pulse Oximetry Oxygen Delivery 02/12/25 16:00 02/12/25 16:00 02/12/25 16:15 Temperature Pulse Rate 84 84 82 Respiratory Rate Blood Pressure 154/72 H 152/71 H Pulse Oximetry Oxygen Delivery 02/12/25 16:30 02/12/25 16:45 02/12/25 17:00 Temperature Pulse Rate 83 82 82 Respiratory Rate Blood Pressure 157/76 H 167/76 H 159/77 H Pulse Oximetry Oxygen Delivery 02/12/25 17:15 02/12/25 17:21 02/12/25 17:26 Temperature 98.6 F Pulse Rate 81 81 84 Respiratory Rate 20 Blood Pressure 163/75 H 166/78 H 173/77 H Pulse Oximetry 98 Oxygen Delivery 02/12/25 17:55 02/12/25 20:00 02/12/25 20:00 Temperature Pulse Rate 84 Respiratory Rate Blood Pressure 174/69 H Pulse Oximetry Oxygen Delivery Room Air 02/12/25 21:09 02/12/25 21:38 02/13/25 00:00 Temperature 97.7 F Pulse Rate 84 85 82 Respiratory Rate 20 Blood Pressure 144/58 H Pulse Oximetry 94 Oxygen Delivery 02/13/25 04:00 02/13/25 06:00 Temperature 97.9 F Pulse Rate 76 79 Respiratory Rate 16 Blood Pressure 143/61 H Pulse Oximetry 95 Oxygen Delivery Intake/Output Intake/Output: Intake & Output 02/10/25 02/11/25 02/12/25 02/13/25 23:59 23:59 23:59 23:59 Intake Total 1470 480 730 0 Output Total 925 5450 4900 750 Balance 545 -4970 -4170 -750 Meds/Results Medications: Active Medications Generic Name Dose Route Start Last Admin Trade Name Freq PRN Reason Stop Dose Admin Acetaminophen 650 mg 02/05/25 20:41 02/08/25 21:04 Acetaminophen 325 Mg Tablet PO 650 mg Q4H PRN Administration Mild Pain (1-3) or Fever Hydrocodone Bitart/Acetaminophen 1 tab 02/08/25 11:49 02/12/25 21:09 Hydrocodone/Acetaminophen (*Crx) 5-325 Mg Tablet PO 1 tab Q4H PRN Administration Pain Rated 4-6 Alteplase, Recombinant 2 mg 02/11/25 10:00 02/11/25 10:13 Alteplase 2 Mg Vial (Cathflo) IV PUSH 2 mg ONCE PRN Administration Line Occlusion Alteplase, Recombinant 2 mg 02/11/25 10:01 02/11/25 10:14 Alteplase 2 Mg Vial (Cathflo) IV PUSH 2 mg ONCE PRN Administration Line Occlusion Bumetanide 2 mg 02/07/25 09:00 02/12/25 17:50 Bumetanide Inj 1 Mg/4 Ml Vial IV PUSH 2 mg TID MARGUERITE Administration Buspirone HCl 10 mg 02/10/25 12:43 02/13/25 08:04 Buspirone Hcl 10 Mg Tablet PO 10 mg BID PRN Administration Anxiety Carvedilol 25 mg 02/11/25 21:00 02/12/25 21:09 Carvedilol 25 Mg Tablet PO 25 mg Q12HR MARGUERITE Administration Dextrose 12.5 gm 02/05/25 21:36 Dextrose 50% 25 Gm/50 Ml Syringe IV PUSH PRN PRN Hypoglycemia Protocol Glucagon 1 mg 02/05/25 21:36 Glucagon For Inj 1 Mg Vial IM PRN PRN Hypoglycemia Protocol Glucose 15 gm 02/05/25 21:36 Glucose Oral Gel 15 Gm Of Glucse In 37.5 Gm Tube PO PRN PRN Hypoglycemia Protocol Heparin Sodium (Porcine) 1,000 units 02/11/25 11:47 02/11/25 12:03 Heparin Sodium 1,000 Units/Ml Vial IV PUSH 1,000 units Q1H PRN Administration DIALYSIS Hydralazine HCl 10 mg 02/05/25 20:41 Hydralazine Hcl 20 Mg/Ml Vial IV PUSH Q4H PRN Blood Pressure - High, >180/90 Hydralazine HCl 100 mg 02/12/25 17:00 02/12/25 21:09 Hydralazine Hcl 50 Mg Tablet PO 100 mg QID MARGUERITE Administration Dextrose 1,000 mls @ 100 mls/hr 02/05/25 21:36 Dextrose 5% 1,000 Ml IVPB PRN PRN Hypoglycemia Protocol Albumin Human 50 mls @ 999 mls/hr 02/09/25 06:57 Albutein IVPB 03/11/25 06:56 Q10M PRN HYPOTENSION Insulin Aspart 4 - 8 units 02/06/25 08:00 02/12/25 18:08 Insulin Aspart (*Bkc) 100 Units/Ml SUB-Q Not Given TIDWM MARGUERITE Protocol Insulin Aspart 2 - 4 units 02/05/25 21:45 02/12/25 21:10 Insulin Aspart (*Bkc) 100 Units/Ml SUB-Q Not Given HS MARGUERITE Protocol Metolazone 5 mg 02/07/25 09:00 02/12/25 09:22 Metolazone 5 Mg Tablet PO 5 mg QAM MARGUERITE Administration Morphine Sulfate 2 mg 02/05/25 21:29 02/12/25 17:49 Morphine Sulfate (*Crx) 4 Mg/Ml Inj IV PUSH 2 mg Q4H PRN Administration Pain Rated 7-10 Multi-Ingred Cream/Lotion/Oil/Oint 1 applic 02/13/25 09:00 Eucerin Cream 120 Gm Jar TOPICAL DAILY MARGUERITE Ondansetron HCl 4 mg 02/05/25 20:41 Ondansetron Inj 4 Mg/2 Ml Vial IV PUSH Q6H PRN Nausea And Vomiting Oxycodone HCl 5 mg 02/08/25 11:08 02/11/25 20:17 Oxycodone Hcl (*Crx) 5 Mg Tab Ir PO 5 mg Q6H PRN Administration Pain Rated 7-10 Radiology Results: ITS Impressions Renal Ultrasound 02/06/25 17:09 IMPRESSION: Right kidney is unremarkable. Left kidney is not visualized. Chest X-Ray 02/08/25 11:41 IMPRESSION: 1. Likely tunneled large-bore dual-lumen] central venous catheter with distal tip in the midsuperior vena cava. 2. Pleural effusions with associated bibasilar atelectasis and/or pneumonia. Venous Doppler Study 02/10/25 17:43 Impression: Negative for DVT. Labs Labs: Laboratory Results - last 24 hr 02/12/25 02/12/25 02/12/25 11:05 18:00 21:04 WBC RBC Hgb Hct MCV MCH MCHC RDW Plt Count MPV Immature Gran % (Auto) Neut % (Auto) Lymph % (Auto) [place] % (Auto) Eos % (Auto) Baso % (Auto) Lymph # (Auto) [place] # (Auto) Eos # (Auto) Baso # (Auto) Abs Immat Gran (auto) Absolute Neuts (auto) Absolute Nucleated RBC Nucleated RBC % PT INR APTT Sodium Potassium Chloride Carbon Dioxide Anion Gap BUN Creatinine Estim Creat Clear Calc Estimated GFR Glucose POC Capillary Glucose 173 H 133 H 189 H Calcium Total Bilirubin AST ALT Alkaline Phosphatase Total Protein Albumin 02/13/25 02/13/25 05:05 07:36 WBC 7.7 RBC 3.94 L Hgb 9.3 L Hct 31.0 L MCV 78.7 L MCH 23.6 L MCHC 30.0 L RDW 21.7 H Plt Count 455 H MPV 10.0 Immature Gran % (Auto) 0.1 Neut % (Auto) 54.5 Lymph % (Auto) 21.4 [place] % (Auto) 17.1 H Eos % (Auto) 6.1 H Baso % (Auto) 0.8 Lymph # (Auto) 1.64 [place] # (Auto) 1.3 H Eos # (Auto) 0.5 H Baso # (Auto) 0.1 Abs Immat Gran (auto) 0.01 Absolute Neuts (auto) 4.2 Absolute Nucleated RBC 0.000 Nucleated RBC % 0.0 PT 13.7 INR 1.0 APTT 25.5 Sodium 133 L Potassium 3.6 Chloride 101 Carbon Dioxide 28 Anion Gap 4 BUN 29 H Creatinine 4.40 H Estim Creat Clear Calc 19 Estimated GFR 11 L Glucose 131 H POC Capillary Glucose 108 H Calcium 7.9 L Total Bilirubin 0.3 AST 19 ALT 13 Alkaline Phosphatase 87 Total Protein 5.4 L Albumin 2.6 L Quality VTE Prophylaxis VTE prophylaxis: mechanical ordered Hospitalist MIPS Advance Care Plan I have confirmed that the patient's Advanced Care Plan is present, code status is documented, or surrogate decision maker is listed in patient medical record.: Yes Medication Reconciliation I have utilized all available resources to obtain, update and review the patients current medications (includes all prescriptions, OTC, herbals, cannabis, and nutritional supplements).: Yes
--- NOTE | 2025-02-13 09:38 | S_PTH ---
PATIENT: Sydni Padron LOC: [id number] U#:[id number] AGE/SX: 45/F ROOM: 254 RE02/07/[address]: Juan Antonio rincon Oca, MD : 1980 BED: 01 DIS: 02/27/2025 SPEC #: [id number] RECD: 02/13/25 09:54 STATUS: LARISA REJavi #: [id number] JOSE CARLOS: 02/13/25 09:[address]: Della Villatoro DEPT: [facility] Surgical RECD BY: Phyllis Garcia ENTERED: 02/13/25 09:55 SP TYPE: Surgical OTHR DR: MD Nolan Bhatti MD Megan Lutman, APRN SCREEN HANDLER PHYSICIAN Arlen Olivares APRN Tissues: A - Kidney Biopsy Procedures: Gross Exam Level 1 Intraoperative
[2025-02-13] MEDS: MORPHINE SULFATE (*CRX) 4 MG/ML INJ 2 MG IV PUSH (10:10)
[2025-02-13] MEDS: BUMETANIDE INJ 1 MG/4 ML VIAL 2 MG IV PUSH ×3 (10:11→17:38)
--- NOTE | 2025-02-13 14:24 | P.PNNP_ITS ---
Progress Note: A&P Assessment and Plan (1) Acute kidney injury: Code(s): N17.9 - Acute kidney failure, unspecified Status: Acute Assessment and Plan: * as noted by admission labs (creatinine 10.26mg/dL) * unclear acuity versus chronicity of this issue (see #2) * complicated/associated with volume overload/anasarca and metabolic acidosis * etiology not clear... * evaluation to date noted: * urine electrolytes non-prerenal * UA with blood and protein * CPK mildly elevated but not enough to affect kidney function * renal ultrasound okay (unable to visualize left kidney) * nephrotic range proteinuria noted (> 10 grams) * serological evaluation noted (negative ANCA/dsDNA-ab/SPEP...rest are pending) * elevated CRP and ESR noted * no significant improvement with diuretic therapy * s/p HD catheter placement on 02/08 * initiated on [employer]/HD on 02/08 * HD/DUF on 02/08, 02/09, 02/11 and 02/12 * plan HD/DUF tomorrow * s/p renal biopsy (on 02/13) for a definitive diagnosis of her renal dysfunction * follow trend of repeat labs and UOP (2) Stage 3b chronic kidney disease: Code(s): N18.32 - Chronic kidney disease, stage 3b Status: Chronic Assessment and Plan: * creatinine down to 1.5mg/dL on September 2022 discharge * unclear if renal function recovered to normal (creatinine did go down as low as 0.7mg/dL during August/September 2022 hospitalization) * multiple risk factors for CKD: * hypertension * diabetes * vascular disease * recently discovered cardiomyopathy * other(?) (3) Volume overload: Code(s): E87.70 - Fluid overload, unspecified Status: Acute Assessment and Plan: * as noted by clinical exam (anasarca) * multifactorial etiology: * renal dysfunction * nephrotic range proteinuria/nephrotic syndrome * cardiomyopathy * vascular disease * no real improvement with diuretics * however, still making some urine with use of bumex/metolazone * continue fluid removal with HD/DUF as tolerated (4) Metabolic acidosis: Code(s): E87.20 - Acidosis, unspecified Status: Acute Assessment and Plan: * resolved * quite severe on presentation (CO2 < 5) * presumably due to renal dysfunction * should remain stable with HD treatments (5) Cardiomyopathy: Code(s): I42.9 - Cardiomyopathy, unspecified Status: Acute Assessment and Plan: * acute versus chronic? * ischemic versus non-ischemic? * Echo results noted (02/06): * left ventricular systolic function is severely reduced, estimated at 30 - 35% * left ventricular diastolic function is grade I diastolic dysfunction * mild to moderate mitral valve regurgitation * mild to moderate tricuspid valve regurgitation * moderate pulmonary hypertension, estimated pulmonary arterial systolic pressure is 47 mmHg * mild pulmonic regurgitation * Cardiology following * GMDT maybe somewhat limited by her severe renal dysfunction (6) Hypertension: Qualifiers: Hypertension type: primary hypertension Qualified Code(s): I10 - Essential (primary) hypertension Code(s): I10 - Essential (primary) hypertension Status: Acute Assessment and Plan: * quite elevated on ER presentation (systolic BP > 200) * still fluctuating but better control in general * on oral hydralazine * continue carvedilol * dialysis/fluid removal should/may help as well * follow trend of hemodynamics (7) Anemia: Qualifiers: Anemia type: due to chronic kidney disease Chronic kidney disease stage: unspecified stage Qualified Code(s): N18.9 - Chronic kidney disease, unspecified; D63.1 - Anemia in chronic kidney disease Code(s): D64.9 - Anemia, unspecified Status: Acute Assessment and Plan: * at least partly related to renal dysfunction * anemia studies demonstrate iron deficiency * s/p IV iron * Epogen with HD * follow trend of H/H (8) Diabetes: Qualifiers: Chronic kidney disease stage: unspecified stage Diabetes mellitus complication detail: with chronic kidney disease Diabetes mellitus complication status: with kidney complications Diabetes mellitus chcf insulin use: w [facility] chcf use Diabetes mellitus type: type 2 Qualified Code(s): E11.22 - Type 2 diabetes mellitus with diabetic chronic kidney disease Code(s): E11.9 - Type 2 diabetes mellitus without complications Status: Chronic Assessment and Plan: * follow accu-cheks * glycemic control per hospitalist Will continue to follow. L Subjective Date/time seen: 02/13/25 14:24 Interval history: Follow-up for acute kidney injury/acute renal failure (on chronic kidney disease?) and anasarca. Tolerated dialysis treatment yesterday without any issue or problems; s/p CT- guided renal biopsy earlier today and tolerated this procedure reasonably well; BP appears to be doing better; edema/swelling slowly improving as well with ultrafiltration and diuretic therapy. Exam 2 Narrative: General: mildly anxious but WD/WN female in NAD Heart: normal S1 and S2; no rub Lungs: decreased at the bases Abdomen: obese but soft, nontender, nondistended, positive bowel sounds Extremities: no cyanosis or clubbing; 2+ edema in RLE and BUEs; s/p left BKA Skin: no rash Objective Data Vital Signs Vital Signs: Vital Signs Temp Pulse Resp BP Pulse Ox O2 Del Method 02/13/25 14:04 83 155/66 H Room Air 02/13/25 13:57 81 02/13/25 12:52 98.2 F 81 14 162/70 H 96 02/13/25 12:00 79 02/13/25 10:09 83 155/65 H 02/13/25 08:00 Room Air 02/13/25 08:00 79 02/13/25 06:00 97.9 F 79 16 143/61 H 95 02/13/25 04:00 76 02/13/25 00:00 82 02/12/25 21:38 97.7 F 85 20 144/58 H 94 02/12/25 21:09 84 02/12/25 20:00 84 02/12/25 20:00 Room Air Intake/Output Intake/Output: Intake & Output 02/10/25 02/11/25 02/12/25 02/13/25 23:59 23:59 23:59 23:59 Intake Total 1470 480 730 90 Output Total 925 5450 4900 1300 Balance 549 -1551 -4170 -1210 Meds/Results Medications: Active Medications Generic Name Dose Route Start Last Admin Trade Name Freq PRN Reason Stop Dose Admin Acetaminophen 650 mg 02/05/25 20:41 02/08/25 21:04 Acetaminophen 325 Mg Tablet PO 650 mg Q4H PRN Administration Mild Pain (1-3) or Fever Hydrocodone Bitart/Acetaminophen 1 tab 02/08/25 11:49 02/12/25 21:09 Hydrocodone/Acetaminophen (*Crx) 5-325 Mg Tablet PO 1 tab Q4H PRN Administration Pain Rated 4-6 Alteplase, Recombinant 2 mg 02/11/25 10:00 02/11/25 10:13 Alteplase 2 Mg Vial (Cathflo) IV PUSH 2 mg ONCE PRN Administration Line Occlusion Alteplase, Recombinant 2 mg 02/11/25 10:01 02/11/25 10:14 Alteplase 2 Mg Vial (Cathflo) IV PUSH 2 mg ONCE PRN Administration Line Occlusion Bumetanide 2 mg 02/07/25 09:00 02/13/25 17:38 Bumetanide Inj 1 Mg/4 Ml Vial IV PUSH 2 mg TID MARGUERITE Administration Buspirone HCl 10 mg 02/10/25 12:43 02/13/25 08:04 Buspirone Hcl 10 Mg Tablet PO 10 mg BID PRN Administration Anxiety Carvedilol 25 mg 02/11/25 21:00 02/13/25 13:57 Carvedilol 25 Mg Tablet PO 25 mg Q12HR MARGUERITE Administration Dextrose 12.5 gm 02/05/25 21:36 Dextrose 50% 25 Gm/50 Ml Syringe IV PUSH PRN PRN Hypoglycemia Protocol Escitalopram Oxalate 10 mg 02/14/25 07:00 Escitalopram Oxalate 10 Mg Tablet PO DAILY MARGUERITE Glucagon 1 mg 02/05/25 21:36 Glucagon For Inj 1 Mg Vial IM PRN PRN Hypoglycemia Protocol Glucose 15 gm 02/05/25 21:36 Glucose Oral Gel 15 Gm Of Glucse In 37.5 Gm Tube PO PRN PRN Hypoglycemia Protocol Heparin Sodium (Porcine) 1,000 units 02/11/25 11:47 02/11/25 12:03 Heparin Sodium 1,000 Units/Ml Vial IV PUSH 1,000 units Q1H PRN Administration DIALYSIS Hydralazine HCl 10 mg 02/05/25 20:41 Hydralazine Hcl 20 Mg/Ml Vial IV PUSH Q4H PRN Blood Pressure - High, >180/90 Hydralazine HCl 100 mg 02/12/25 17:00 02/13/25 17:38 Hydralazine Hcl 50 Mg Tablet PO 100 mg QID MARGUERITE Administration Hydromorphone HCl 0.5 mg 02/13/25 10:50 02/13/25 15:42 Hydromorphone Hcl Inj (*Crx) 1 Mg/Ml Syr IV PUSH 0.5 mg Q4H PRN Administration Breakthrough Pain Dextrose 1,000 mls @ 100 mls/hr 02/05/25 21:36 Dextrose 5% 1,000 Ml IVPB PRN PRN Hypoglycemia Protocol Albumin Human 50 mls @ 999 mls/hr 02/09/25 06:57 Albutein IVPB 03/11/25 06:56 Q10M PRN HYPOTENSION Insulin Aspart 4 - 8 units 02/06/25 08:00 02/13/25 16:34 Insulin Aspart (*Bkc) 100 Units/Ml SUB-Q Not Given TIDWM MARGUERITE Protocol Insulin Aspart 2 - 4 units 02/05/25 21:45 02/12/25 21:10 Insulin Aspart (*Bkc) 100 Units/Ml SUB-Q Not Given HS [facility] Protocol Metolazone 5 mg 02/07/25 09:00 02/13/25 13:57 Metolazone 5 Mg Tablet PO 5 mg QAM MARGUERITE Administration Multi-Ingred Cream/Lotion/Oil/Oint 1 applic 02/13/25 09:00 02/13/25 10:16 Eucerin Cream 120 Gm Jar TOPICAL Not Given DAILY [facility] Ondansetron HCl 4 mg 02/05/25 20:41 Ondansetron Inj 4 Mg/2 Ml Vial IV PUSH Q6H PRN Nausea And Vomiting Oxycodone HCl 5 mg 02/08/25 11:08 02/11/25 20:17 Oxycodone Hcl (*Crx) 5 Mg Tab Ir PO 5 mg Q6H PRN Administration Pain Rated 7-10 Pantoprazole Sodium 40 mg 02/14/25 09:00 Pantoprazole 40 Mg Tablet PO DAILY [facility] Radiology Results: ITS Impressions Renal Ultrasound 02/06/25 17:09 IMPRESSION: Right kidney is unremarkable. Left kidney is not visualized. Chest X-Ray 02/08/25 11:41 IMPRESSION: 1. Likely tunneled large-bore dual-lumen] central venous catheter with distal tip in the midsuperior vena cava. 2. Pleural effusions with associated bibasilar atelectasis and/or pneumonia. Venous Doppler Study 02/10/25 17:43 Impression: Negative for DVT. Renal Biopsy CT 02/13/25 10:19 IMPRESSION: 1. Successful CT-guided random left kidney biopsy. Labs Labs: Laboratory Tests 02/13/25 05:05 02/13/25 05:05 Calcium 7.9 L Total Bilirubin 0.3 AST 19 ALT 13 Alkaline Phosphatase 87 Total Protein 5.4 L Albumin 2.6 L
[2025-02-13] MEDS: HYDROmorphone HCL INJ (*CRX) 1 MG/ML SYR 0.5 MG IV PUSH (15:42)
[2025-02-13] MEDS: oxyCODONE HCL (*CRX) 5 MG TAB IR PO (21:58)
[2025-02-14] VITALS (25 sets, daily range): BP systolic 112–155; BP diastolic 48–73; PULSE 64–89; RESP 16–18; TEMP 36.3–37; O2SAT 96–99
[2025-02-14 04:44] LABS: Hematocrit 32.5 % (37.0-47.0); Hemoglobin 9.6 g/dL (12.0-15.0); Immature Granulocyte Percent A 0.4 % (0-0.5); Lymphocytes Absolute Auto 1.13 K/mm3 (0.9-3.2); Mean Corpuscular HGB Conc 29.5 g/dl (32-36); Mean Corpuscular Hemoglobin 23.9 pg (26-34); Mean Corpuscular Volume 80.8 fl (80-100); Nucleated Red Blood Cells Absolute Auto 0.000 K/mm3 (0.0-0.012); Nucleated Red Blood Cells Perc 0.0 % (0.0-0.2); Platelet Count Result 520 k/mm3 (150-375); Red Blood Count 4.02 M/mm3 (4.2-5.4); White Blood Count 7.9 K/mm3 (4.5-10.0)
[2025-02-14 05:03] LABS: Alanine Aminotransferase 13 U/L (6-35); Albumin Level 2.7 g/dL (3.5-5.1); Alkaline Phosphatase 93 U/L (38-126); Anion Gap 7 mmol/L (4-12); Aspartate Amino Transferase 22 U/L (14-36); Bilirubin,Total 0.4 mg/dL (0.2-1.3); Blood Urea Nitrogen 34 mg/dL (7-17); Calcium 8.0 mg/dL (8.4-10.2); Carbon Dioxide 27 mmol/L (22-30); Chloride 100 mmol/L (98-107); Estimated CRCL calculation 16 ml/min; Estimated Glomerular Filt Rate 9; Glucose 131 mg/dL (65-110); Potassium 3.8 mmol/L (3.4-5.0); Sodium 134 mmol/L (137-145); Total Protein 5.6 g/dL (6.3-8.2)
[2025-02-14 05:23] LABS: Anisocytosis 1+; Hypochromasia 2+
[2025-02-14 05:24] LABS: Burr Cells Occasional; Ovalocytes Occasional; Schistocytes Rare
[2025-02-14] MEDS: ESCITALOPRAM OXALATE 10 MG TABLET PO ×2 (06:06→09:34)
--- NOTE | 2025-02-14 07:43 | PM.IMPN ---
Progress Note: A&P Assessment and Plan (1) CHF (congestive heart failure): Qualifiers: Heart failure chronicity: acute Heart failure type: unspecified Qualified Code(s): I50.9 - Heart failure, unspecified Code(s): I50.9 - Heart failure, unspecified Status: Acute Assessment and Plan: Patient originally presented for primary complaint of shortness of breath and right lower extremity swelling (history of left BKA).? CXR showed mild CHF.? BNP greater than 30,000. Given new onset renal failure, may be hypervolemia due to acute renal failure/ESRD verses new onset CHF or combination thereof. - BNP greater than 30,000 upon admission on 02/05 - reviewed chart, no previous echo on file - started Bumex 2 mg b.i.d. IV, now on dialysis - monitor I&Os and daily weights - trend renal function - TSH elevated 6.3 T3 0.82/ T4 1.66 (2) Diabetes: Qualifiers: Chronic kidney disease stage: unspecified stage Diabetes mellitus complication detail: with chronic kidney disease Diabetes mellitus complication status: with kidney complications Diabetes mellitus retirement insulin use: without retirement use Diabetes mellitus type: type 2 Qualified Code(s): E11.22 - Type 2 diabetes mellitus with diabetic chronic kidney disease Code(s): E11.9 - Type 2 diabetes mellitus without complications Status: Chronic Assessment and Plan: Patient has a history of type 2 diabetes.? However she has been off of her medications for the past 2 years since 2022.? She has not followed with any providers since 2022.? Diabetes complicated by previous diabetic foot infection requiring a left BKA in 2022. Blood sugars relatively controlled - hypoglycemia protocol - POC blood glucose ACHS - correct regimen ordered - high dose TIDWM and HS - A1C 8.6% on 02/05/2025 - coding educator consulted - dietitian consulted (3) Elevated TSH: Code(s): R79.89 - Other specified abnormal findings of blood chemistry Status: Acute Assessment and Plan: TSH 6.320 on 02/05.? Previously within normal limits in August of 2022.? Hasn't been taking regularly T3 normal, --Will check T3/T4. --Continue Synthroid (4) Hypertension: Qualifiers: Hypertension type: primary hypertension Qualified Code(s): I10 - Essential (primary) hypertension Code(s): I10 - Essential (primary) hypertension Status: Acute Assessment and Plan: Home meds: Carvedilol 3.125 BID, Hydralazine 50 q6 but untreated, off meds the past 2 years. Arrived significantly hypertensive to [facility], BP 218/115. Titrating meds -restarted Coreg 3.125<25 mg b.i.d --s/p Bumex IV then lasix drip, now on bumex TID --hydralazine 50<100 QID (5) Anemia: Qualifiers: Anemia type: due to chronic kidney disease Chronic kidney disease stage: unspecified stage Qualified Code(s): N18.9 - Chronic kidney disease, unspecified; D63.1 - Anemia in chronic kidney disease Code(s): D64.9 - Anemia, unspecified Status: Acute Assessment and Plan: H&H .07/23 Patient has history of anemia, likely secondary to CKD. Hemoglobin 10.6 upon admission. Previously 7.2 upon discharge on 09/27/2022. 02/05 Ferritin 16, Iron 29, TIBC 400, %Sat 7 02/07 Iron 619, TIBC 375,, %Sat 165 s/p venofer 400mg x1 02/06 - transfuse if <7 (6) Acute kidney injury: Code(s): N17.9 - Acute kidney failure, unspecified Status: Acute Assessment and Plan: Admitted for [facility]. HD cath placed 02/08. Started on HD. Kidney biopsy done 02/12 Renal US: IMPRESSION: Right kidney is unremarkable. Left kidney is not visualized. --Neph following, daily labs --Needs a dialysis center Pain post kidney biopsy improved changed morphine to dilaudid with ESRD --follow cbc, bmp (7) Anxiety: Code(s): F41.9 - Anxiety disorder, unspecified Status: Acute Assessment and Plan: Pt reported an increase / ongoing anxiety since being in the hospital. She reports that she has been rx something in the past for anxiety that she took on a PRN basis and it was non-sedating but she cannot remember the name -Ordered Buspirone 10mg BID PRN for her 02/12 --Pt with another acute anxiety episode today with some itching. One time dose of hydroxyzine 25mg given. Plan Pending HD and kidney biopsy potentially 02/13, monitor volume status & BUE edema Time Spent With Patient Time: 58 minutes Subjective Date/time seen: 02/14/25 07:43 Interval history: VSS. Dialysis today. Pending outpatient dialysis center Labs ok today. Pain improved but hasn't been out of bed yet. Review of Systems Review of Systems: All systems reviewed & are unremarkable except as noted in HPI and below Exam Narrative: HEENT: PERRL, sclerae nonicteric, pharyngeal mucosa pink and intact NECK: No JVD, adenopathy, or thyromegaly CHEST: Clear to auscultation. Normal effort. Right chest HD cath HEART: NL S1/S2, regular, no murmur ABDOMEN: BS+, soft, nontender, no mass, no bruits EXTREMITIES: No cyanosis, edema, or clubbing NEUROLOGIC: CN intact and symmetric to inspection MUSCULOSKELETAL: Tone and strength symmetric, left BKA PSYCH: Alert. Oriented to person, place, and time Objective Data Vital Signs Vital Signs: Vital Signs - 24 hr 02/13/25 08:00 02/13/25 08:00 02/13/25 10:09 Temperature Pulse Rate 79 83 Respiratory Rate Blood Pressure 155/65 H Pulse Oximetry Oxygen Delivery Room Air 02/13/25 12:00 02/13/25 12:52 02/13/25 13:57 Temperature 98.2 F Pulse Rate 79 81 81 Respiratory Rate 14 Blood Pressure 162/70 H Pulse Oximetry 96 Oxygen Delivery 02/13/25 14:04 02/13/25 14:05 02/13/25 16:00 Temperature Pulse Rate 83 77 Respiratory Rate Blood Pressure 155/66 H Pulse Oximetry Oxygen Delivery Room Air 02/13/25 17:32 02/13/25 20:00 02/13/25 20:00 Temperature Pulse Rate 77 Respiratory Rate Blood Pressure 148/64 H Pulse Oximetry Oxygen Delivery Room Air 02/13/25 21:24 02/13/25 21:58 02/14/25 00:00 Temperature 97.6 F Pulse Rate 81 80 79 Respiratory Rate 16 Blood Pressure 135/62 Pulse Oximetry 97 Oxygen Delivery 02/14/25 04:00 02/14/25 06:08 Temperature 97.7 F Pulse Rate 77 80 Respiratory Rate 16 Blood Pressure 127/61 Pulse Oximetry 96 Oxygen Delivery Intake/Output Intake/Output: Intake & Output 10/02/12/25 02/13/25 02/14/25 23:59 23:59 23:59 23:59 Intake Total 958 730 90 640 Output Total 1223 7298 [id number] 291 [facility] [phone] Meds/Results Medications: Active Medications Generic Name Dose Route Start Last Admin Trade Name Freq PRN Reason Stop Dose Admin Acetaminophen 650 mg 02/05/25 20:41 02/08/25 21:04 Acetaminophen 325 Mg Tablet PO 650 mg Q4H PRN Administration Mild Pain (1-3) or Fever Hydrocodone Bitart/Acetaminophen 1 tab 02/08/25 11:49 02/12/25 21:09 Hydrocodone/Acetaminophen (*Crx) 5-325 Mg Tablet PO 1 tab Q4H PRN Administration Pain Rated 4-6 Alteplase, Recombinant 2 mg 02/11/25 10:00 02/11/25 10:13 Alteplase 2 Mg Vial (Cathflo) IV PUSH 2 mg ONCE PRN Administration Line Occlusion Alteplase, Recombinant 2 mg 02/11/25 10:01 02/11/25 10:14 Alteplase 2 Mg Vial (Cathflo) IV PUSH 2 mg ONCE PRN Administration Line Occlusion Bumetanide 2 mg 02/07/25 09:00 02/13/25 17:38 Bumetanide Inj 1 Mg/4 Ml Vial IV PUSH 2 mg TID MARGUERITE Administration Buspirone HCl 10 mg 02/10/25 12:43 02/13/25 21:58 Buspirone Hcl 10 Mg Tablet PO 10 mg BID PRN Administration Anxiety Carvedilol 25 mg 02/11/25 21:00 02/13/25 21:58 Carvedilol 25 Mg Tablet PO 25 mg Q12HR MARGUERITE Administration Dextrose 12.5 gm 02/05/25 21:36 Dextrose 50% 25 Gm/50 Ml Syringe IV PUSH PRN PRN Hypoglycemia Protocol Epoetin Sergio-epbx 10,000 units 02/14/25 18:00 Epoetin Sergio-Epbx 10,000 Units/Ml Vial IV PUSH 02/14/25 18:01 ONCE ONE Escitalopram Oxalate 10 mg 02/14/25 07:00 02/14/25 06:06 Escitalopram Oxalate 10 Mg Tablet PO 10 mg DAILY MARGUERITE Administration Glucagon 1 mg 02/05/25 21:36 Glucagon For Inj 1 Mg Vial IM PRN PRN Hypoglycemia Protocol Glucose 15 gm 02/05/25 21:36 Glucose Oral Gel 15 Gm Of Glucse In 37.5 Gm Tube PO PRN PRN Hypoglycemia Protocol Heparin Sodium (Porcine) 1,000 units 02/11/25 11:47 02/11/25 12:03 Heparin Sodium 1,000 Units/Ml Vial IV PUSH 1,000 units Q1H PRN Administration DIALYSIS Hydralazine HCl 10 mg 02/05/25 20:41 Hydralazine Hcl 20 Mg/Ml Vial IV PUSH Q4H PRN Blood Pressure - High, >180/90 Hydralazine HCl 100 mg 02/12/25 17:00 02/13/25 21:58 Hydralazine Hcl 50 Mg Tablet PO 100 mg QID MARGUERITE Administration Hydromorphone HCl 0.5 mg 02/13/25 10:50 02/13/25 15:42 Hydromorphone Hcl Inj (*Crx) 1 Mg/Ml Syr IV PUSH 0.5 mg Q4H PRN Administration Breakthrough Pain Dextrose 1,000 mls @ 100 mls/hr 02/05/25 21:36 Dextrose 5% 1,000 Ml IVPB PRN PRN Hypoglycemia Protocol Albumin Human 50 mls @ 999 mls/hr 02/09/25 06:57 Albutein IVPB 03/11/25 06:56 Q10M PRN HYPOTENSION Insulin Aspart 4 - 8 units 02/06/25 08:00 02/13/25 16:34 Insulin Aspart (*Bkc) 100 Units/Ml SUB-Q Not Given TIDWM [facility] Protocol Insulin Aspart 2 - 4 units 02/05/25 21:45 02/13/25 21:59 Insulin Aspart (*Bkc) 100 Units/Ml SUB-Q Not Given HS [facility] Protocol Metolazone 5 mg 02/07/25 09:00 02/13/25 13:57 Metolazone 5 Mg Tablet PO 5 mg QAM MARGUERITE Administration Multi-Ingred Cream/Lotion/Oil/Oint 1 applic 02/13/25 09:00 02/13/25 10:16 Eucerin Cream 120 Gm Jar TOPICAL Not Given DAILY [facility] Ondansetron HCl 4 mg 02/05/25 20:41 Ondansetron Inj 4 Mg/2 Ml Vial IV PUSH Q6H PRN Nausea And Vomiting Oxycodone HCl 5 mg 10/17/25 11:08 02/13/25 21:58 Oxycodone Hcl (*Crx) 5 Mg Tab Ir PO 5 mg Q6H PRN Administration Pain Rated 7-10 Pantoprazole Sodium 40 mg 02/14/25 09:00 Pantoprazole 40 Mg Tablet PO DAILY MARGUERITE Radiology Results: ITS Impressions Renal Ultrasound 02/06/25 17:09 IMPRESSION: Right kidney is unremarkable. Left kidney is not visualized. Chest X-Ray 02/08/25 11:41 IMPRESSION: 1. Likely tunneled large-bore dual-lumen] central venous catheter with distal tip in the midsuperior vena cava. 2. Pleural effusions with associated bibasilar atelectasis and/or pneumonia. Venous Doppler Study 02/10/25 17:43 Impression: Negative for DVT. Renal Biopsy CT 02/13/25 10:19 IMPRESSION: 1. Successful CT-guided random left kidney biopsy. Labs Labs: Laboratory Results - last 24 hr 02/13/25 02/13/25 02/13/25 11:36 16:18 21:30 WBC RBC Hgb Hct MCV MCH MCHC RDW Plt Count MPV Immature Gran % (Auto) Neut % (Auto) Lymph % (Auto) Maries % (Auto) Eos % (Auto) Baso % (Auto) Lymph # (Auto) Maries # (Auto) Eos # (Auto) Baso # (Auto) Abs Immat Gran (auto) Absolute Neuts (auto) Absolute Nucleated RBC Band Neutrophils % Nucleated RBC % Platelet Estimate Large Platelets Hypochromasia Anisocytosis Ovalocytes [place] Cells Schistocytes Sodium Potassium Chloride Carbon Dioxide Anion Gap BUN Creatinine Estim Creat Clear Calc Estimated GFR Glucose POC Capillary Glucose 107 H 119 H 161 H Calcium Total Bilirubin AST ALT Alkaline Phosphatase Total Protein Albumin 02/14/25 04:33 WBC 7.9 RBC 4.02 L Hgb 9.6 L Hct 32.5 L MCV 80.8 MCH 23.9 L MCHC 29.5 L RDW 22.2 H Plt Count 520 H MPV 9.6 Immature Gran % (Auto) 0.4 Neut % (Auto) 65.6 Lymph % (Auto) 14.4 L Maries % (Auto) 14.7 H Eos % (Auto) 4.4 Baso % (Auto) 0.5 Lymph # (Auto) 1.13 Maries # (Auto) 1.2 H Eos # (Auto) 0.4 H Baso # (Auto) 0.0 Abs Immat Gran (auto) 0.03 Absolute Neuts (auto) 5.2 Absolute Nucleated RBC 0.000 Band Neutrophils % Not Reportable Nucleated RBC % 0.0 Platelet Estimate Increased Large Platelets Present Hypochromasia 2+ Anisocytosis 1+ Ovalocytes Occasional Greg Cells Occasional Schistocytes Rare Sodium 134 L Potassium 3.8 Chloride 100 Carbon Dioxide 27 Anion Gap 7 BUN 34 H Creatinine 5.04 H Estim Creat Clear Calc 16 Estimated GFR 9 L Glucose 131 H POC Capillary Glucose Calcium 8.0 L Total Bilirubin 0.4 AST 22 ALT 13 Alkaline Phosphatase 93 Total Protein 5.6 L Albumin 2.7 L Quality VTE Prophylaxis VTE prophylaxis: mechanical ordered Hospitalist [facility] Advance Care Plan I have confirmed that the patient's Advanced Care Plan is present, code status is documented, or surrogate decision maker is listed in patient medical record.: Yes Medication Reconciliation I have utilized all available resources to obtain, update and review the patients current medications (includes all prescriptions, OTC, herbals, cannabis, and nutritional supplements).: Yes
[2025-02-14] MEDS: EUCERIN CREAM 120 GM JAR 1 APPLIC TOPICAL (09:34)
[2025-02-14] MEDS: PANTOPRAZOLE 40 MG TABLET PO (09:34)
[2025-02-14] MEDS: BUMETANIDE INJ 1 MG/4 ML VIAL 2 MG IV PUSH ×2 (09:41→17:55)
[2025-02-14] MEDS: HYDROmorphone HCL INJ (*CRX) 1 MG/ML SYR 0.5 MG IV PUSH (13:25)
--- NOTE | 2025-02-14 14:27 | P.PNNP_ITS ---
Progress Note: A&P Assessment and Plan (1) End stage renal disease: Code(s): N18.6 - End stage renal disease Status: Chronic Assessment and Plan: * as demonstrated by renal biopsy: * diffuse/severe glomerulosclerosis secondary to ischemic changes, vascular disease/hypertension and diabetes * ~ 90 - 100% interstitial fibrosis and tubular atrophy * renal biopsy findings likely explains presentation: * volume overload * anasarca * metabolic acidosis * anemia * evaluation since admission already noted: * urine electrolytes non-prerenal * UA with blood and protein * CPK mildly elevated but not enough to affect kidney function * renal ultrasound okay (unable to visualize left kidney) * nephrotic range proteinuria noted (> 10 grams) * negative serological evaluation * elevated CRP and ESR noted * no significant improvement with diuretic therapy * s/p HD catheter placement on 02/08 * initiated on [facility]ER/HD on 02/08 * daily HD/DUF for clearance and fluid removal * will need outpatient arrangements for dialysis (case management aware) (2) Volume overload: Code(s): E87.70 - Fluid overload, unspecified Status: Acute Assessment and Plan: * as noted by clinical exam (anasarca) * multifactorial etiology: * renal dysfunction * nephrotic range proteinuria/nephrotic syndrome * cardiomyopathy * vascular disease * no real improvement with diuretics * however, still making some urine with use of bumex/metolazone * continue fluid removal with HD/DUF as tolerated (3) Metabolic acidosis: Code(s): E87.20 - Acidosis, unspecified Status: Acute Assessment and Plan: * resolved * quite severe on presentation (CO2 < 5) * presumably due to renal dysfunction * should remain stable with HD treatments (4) Cardiomyopathy: Code(s): I42.9 - Cardiomyopathy, unspecified Status: Acute Assessment and Plan: * acute versus chronic? * ischemic versus non-ischemic? * Echo results noted (02/06): * left ventricular systolic function is severely reduced, estimated at 30 - 35% * left ventricular diastolic function is grade I diastolic dysfunction * mild to moderate mitral valve regurgitation * mild to moderate tricuspid valve regurgitation * moderate pulmonary hypertension, estimated pulmonary arterial systolic pressure is 47 mmHg * mild pulmonic regurgitation * Cardiology following * GMDT maybe somewhat limited by her severe renal dysfunction * will start low dose lisinopril * would not be opposed to use of Entresto... (5) Hypertension: Qualifiers: Hypertension type: primary hypertension Qualified Code(s): I10 - Essential (primary) hypertension Code(s): I10 - Essential (primary) hypertension Status: Acute Assessment and Plan: * quite elevated on ER presentation (systolic BP > 200) * better control in general * switch hydralazine to lisinopril * continue carvedilol * continue dialysis/fluid removal * follow trend of hemodynamics (6) Anemia: Qualifiers: Anemia type: due to chronic kidney disease Chronic kidney disease stage: unspecified stage Qualified Code(s): N18.9 - Chronic kidney disease, unspecified; D63.1 - Anemia in chronic kidney disease Code(s): D64.9 - Anemia, unspecified Status: Acute Assessment and Plan: * at least partly related to renal dysfunction * anemia studies demonstrate iron deficiency * s/p IV iron * Epogen with HD * follow trend of H/H (7) Diabetes: Qualifiers: Chronic kidney disease stage: unspecified stage Diabetes mellitus complication detail: with chronic kidney disease Diabetes mellitus complication status: with kidney complications Diabetes mellitus fci insulin use: w [facility] exterminator helper use Diabetes mellitus type: type 2 Qualified Code(s): E11.22 - Type 2 diabetes mellitus with diabetic chronic kidney disease Code(s): E11.9 - Type 2 diabetes mellitus without complications Status: Chronic Assessment and Plan: * follow accu-cheks * glycemic control per hospitalist Will continue to follow. L Subjective Date/time seen: 02/14/25 14:27 Interval history: Follow-up for acute kidney injury/acute renal failure (on chronic kidney disease?) and anasarca. Tolerating dry ultrafiltration at the time of my visit; BP continues to improve with current interventions; swelling/edema getting better with dialysis/ultrafiltration and diuretic therapy; no apparent distress when seen. Exam 2 Narrative: General: mildly anxious but WD/WN female in NAD Heart: normal S1 and S2; no rub Lungs: decreased at the bases Abdomen: obese but soft, nontender, nondistended, positive bowel sounds Extremities: no cyanosis or clubbing; 2+ edema in RLE and BUEs; s/p left BKA Skin: no nodules Objective Data Vital Signs Vital Signs: Vital Signs Temp Pulse Resp BP Pulse Ox O2 Del Method 02/14/25 14:15 72 116/67 02/14/25 14:00 73 131/63 02/14/25 13:48 77 144/68 H 02/14/25 13:40 98.4 F 78 18 155/73 H 98 02/14/25 12:00 74 02/14/25 08:00 80 02/14/25 08:00 Room Air 02/14/25 06:08 97.7 F 80 16 127/61 96 02/14/25 04:00 77 02/14/25 00:00 79 02/13/25 21:58 80 02/13/25 21:24 97.6 F 81 16 135/62 97 02/13/25 20:00 77 02/13/25 20:00 Room Air Intake/Output Intake/Output: Intake & Output 02/11/25 02/12/25 02/13/25 02/14/25 23:59 23:59 23:59 23:59 Intake Total 480 442 19 9020 Output Total 5450 4900 1300 4050 Balance -4970 -4170 -1210 -3050 Meds/Results Medications: Active Medications Generic Name Dose Route Start Last Admin Trade Name Benq PRN Reason Stop Dose Admin Acetaminophen 650 mg 02/05/25 20:41 02/08/25 21:04 Acetaminophen 325 Mg Tablet PO 650 mg Q4H PRN Administration Mild Pain (1-3) or Fever Hydrocodone Bitart/Acetaminophen 1 tab 02/08/25 11:49 02/12/25 21:09 Hydrocodone/Acetaminophen (*Crx) 5-325 Mg Tablet PO 1 tab Q4H PRN Administration Pain Rated 4-6 Alteplase, Recombinant 2 mg 02/11/25 10:00 02/11/25 10:13 Alteplase 2 Mg Vial (Cathflo) IV PUSH 2 mg ONCE PRN Administration Line Occlusion Alteplase, Recombinant 2 mg 02/11/25 10:01 02/11/25 10:14 Alteplase 2 Mg Vial (Cathflo) IV PUSH 2 mg ONCE PRN Administration Line Occlusion Bumetanide 2 mg 02/07/25 09:00 02/14/25 17:55 Bumetanide Inj 1 Mg/4 Ml Vial IV PUSH 2 mg TID MARGUERITE Administration Buspirone HCl 10 mg 02/10/25 12:43 02/13/25 21:58 Buspirone Hcl 10 Mg Tablet PO 10 mg BID PRN Administration Anxiety Carvedilol 25 mg 02/11/25 21:00 02/14/25 09:34 Carvedilol 25 Mg Tablet PO 25 mg Q12HR MARGUERITE Administration Dextrose 12.5 gm 02/05/25 21:36 Dextrose 50% 25 Gm/50 Ml Syringe IV PUSH PRN PRN Hypoglycemia Protocol Escitalopram Oxalate 10 mg 02/14/25 07:00 02/14/25 09:34 Escitalopram Oxalate 10 Mg Tablet PO 10 mg DAILY MARGUERITE Administration Glucagon 1 mg 02/05/25 21:36 Glucagon For Inj 1 Mg Vial IM PRN PRN Hypoglycemia Protocol Glucose 15 gm 02/05/25 21:36 Glucose Oral Gel 15 Gm Of Glucse In 37.5 Gm Tube PO PRN PRN Hypoglycemia Protocol Heparin Sodium (Porcine) 1,000 units 02/11/25 11:47 02/11/25 12:03 Heparin Sodium 1,000 Units/Ml Vial IV PUSH 1,000 units Q1H PRN Administration DIALYSIS Hydralazine HCl 10 mg 02/05/25 20:41 Hydralazine Hcl 20 Mg/Ml Vial IV PUSH Q4H PRN Blood Pressure - High, >180/90 Hydralazine HCl 100 mg 02/12/25 17:00 02/14/25 18:02 Hydralazine Hcl 50 Mg Tablet PO Not Given QID MARGUERITE Hydromorphone HCl 0.5 mg 02/13/25 10:50 02/14/25 13:25 Hydromorphone Hcl Inj (*Crx) 1 Mg/Ml Syr IV PUSH 0.5 mg Q4H PRN Administration Breakthrough Pain Dextrose 1,000 mls @ 100 mls/hr 02/05/25 21:36 Dextrose 5% 1,000 Ml IVPB PRN PRN Hypoglycemia Protocol Albumin Human 50 mls @ 999 mls/hr 02/09/25 06:57 Albutein IVPB 03/11/25 06:56 Q10M PRN HYPOTENSION Insulin Aspart 4 - 8 units 02/06/25 08:00 02/14/25 17:48 Insulin Aspart (*Bkc) 100 Units/Ml SUB-Q Not Given TIDWM MARGUERITE Protocol Insulin Aspart 2 - 4 units 02/05/25 21:45 02/13/25 21:59 Insulin Aspart (*Bkc) 100 Units/Ml SUB-Q Not Given HS [facility] Protocol Metolazone 5 mg 10/16/25 09:00 02/14/25 09:34 Metolazone 5 Mg Tablet PO 5 mg QAM MARGUERITE Administration Multi-Ingred Cream/Lotion/Oil/Oint 1 applic 02/13/25 09:00 02/14/25 09:34 Eucerin Cream 120 Gm Jar TOPICAL 1 applic DAILY MARGUERITE Administration Ondansetron HCl 4 mg 02/05/25 20:41 Ondansetron Inj 4 Mg/2 Ml Vial IV PUSH Q6H PRN Nausea And Vomiting Oxycodone HCl 5 mg 02/08/25 11:08 02/13/25 21:58 Oxycodone Hcl (*Crx) 5 Mg Tab Ir PO 5 mg Q6H PRN Administration Pain Rated 7-10 Pantoprazole Sodium 40 mg 02/14/25 09:00 02/14/25 09:34 Pantoprazole 40 Mg Tablet PO 40 mg DAILY MARGUERITE Administration Radiology Results: ITS Impressions Renal Ultrasound 02/06/25 17:09 IMPRESSION: Right kidney is unremarkable. Left kidney is not visualized. Chest X-Ray 02/08/25 11:41 IMPRESSION: 1. Likely tunneled large-bore dual-lumen] central venous catheter with distal tip in the midsuperior vena cava. 2. Pleural effusions with associated bibasilar atelectasis and/or pneumonia. Venous Doppler Study 02/10/25 17:43 Impression: Negative for DVT. Renal Biopsy CT 02/13/25 10:19 IMPRESSION: 1. Successful CT-guided random left kidney biopsy. Labs Labs: Laboratory Tests 02/14/25 04:33 02/14/25 04:33 Calcium 8.0 L Total Bilirubin 0.4 AST 22 ALT 13 Alkaline Phosphatase 93 Total Protein 5.6 L Albumin 2.7 L
[2025-02-14] MEDS: EPOETIN ALFA-EPBX 10,000 UNITS/ML VIAL 10000 UNITS IV PUSH (16:45)
[2025-02-14] MEDS: SODIUM CHLORIDE 0.9% IV 1,000 ML 999 ML IV CONT (17:33)
[2025-02-14 19:26] LABS: Urine Eos QC 2nd Tech Confirmed
[2025-02-14] MEDS: HYDROcodone/acetaminophen (*CRX) 5-325 MG TABLET 1 TAB PO (21:07)
[2025-02-15] VITALS (11 sets, daily range): BP systolic 128–142; BP diastolic 55–63; PULSE 74–84; RESP 14–18; TEMP 36.6–37.1; O2SAT 95–97
[2025-02-15 05:18] LABS: Hematocrit 30.8 % (37.0-47.0); Hemoglobin 9.1 g/dL (12.0-15.0); Immature Granulocyte Percent A 0.4 % (0-0.5); Lymphocytes Absolute Auto 1.40 K/mm3 (0.9-3.2); Mean Corpuscular HGB Conc 29.5 g/dl (32-36); Mean Corpuscular Hemoglobin 23.8 pg (26-34); Mean Corpuscular Volume 80.6 fl (80-100); Nucleated Red Blood Cells Absolute Auto 0.000 K/mm3 (0.0-0.012); Nucleated Red Blood Cells Perc 0.0 % (0.0-0.2); Platelet Count Result 476 k/mm3 (150-375); Red Blood Count 3.82 M/mm3 (4.2-5.4); White Blood Count 8.0 K/mm3 (4.5-10.0)
[2025-02-15 05:45] LABS: Anisocytosis 1+; Hypochromasia 1+; Ovalocytes 1+; Schistocytes None Seen
[2025-02-15 05:57] LABS: Parathyroid Intact 196.8 pg/mL (14.5-75.2)
[2025-02-15 06:14] LABS: Alanine Aminotransferase 12 U/L (6-35); Albumin Level 2.9 g/dL (3.5-5.1); Alkaline Phosphatase 97 U/L (38-126); Anion Gap 7 mmol/L (4-12); Aspartate Amino Transferase 20 U/L (14-36); Bilirubin,Total 0.3 mg/dL (0.2-1.3); Blood Urea Nitrogen 38 mg/dL (7-17); Calcium 8.0 mg/dL (8.4-10.2); Carbon Dioxide 26 mmol/L (22-30); Chloride 101 mmol/L (98-107); Estimated CRCL calculation 13 ml/min; Estimated Glomerular Filt Rate 7; Glucose 99 mg/dL (65-110); Potassium 3.7 mmol/L (3.4-5.0); Sodium 134 mmol/L (137-145); Total Protein 5.7 g/dL (6.3-8.2)
[2025-02-15] MEDS: ERGOCALCIFEROL (VITAMIN D2) 1,250 MCG (50,000 UNITS) CAPSULE 1250 MCG PO (09:42)
[2025-02-15] MEDS: BUMETANIDE INJ 1 MG/4 ML VIAL 2 MG IV PUSH ×3 (09:42→18:04)
[2025-02-15] MEDS: ESCITALOPRAM OXALATE 10 MG TABLET PO (09:42)
[2025-02-15] MEDS: PANTOPRAZOLE 40 MG TABLET PO (09:42)
[2025-02-15] MEDS: EUCERIN CREAM 120 GM JAR 1 APPLIC TOPICAL (09:43)
[2025-02-15] MEDS: HYDROcodone/acetaminophen (*CRX) 5-325 MG TABLET 1 TAB PO (09:53)
--- NOTE | 2025-02-15 10:13 | P.PNIM_ITS ---
Progress Note: A&P Assessment and Plan (1) CHF (congestive heart failure): Qualifiers: Heart failure chronicity: acute Heart failure type: unspecified Qualified Code(s): I50.9 - Heart failure, unspecified Code(s): I50.9 - Heart failure, unspecified Status: Acute Assessment and Plan: Patient originally presented for primary complaint of shortness of breath and right lower extremity swelling (history of left BKA).? CXR showed mild CHF.? BNP greater than 30,000. Given new onset renal failure, may be hypervolemia due to acute renal failure/ESRD verses new onset CHF or combination thereof. - BNP greater than 30,000 upon admission on 02/05 - reviewed chart, no previous echo on file - started Bumex 2 mg b.i.d. IV, now on dialysis - monitor I&Os and daily weights - trend renal function - TSH elevated 6.3 T3 0.82/ T4 1.66 (2) Diabetes: Qualifiers: Chronic kidney disease stage: unspecified stage Diabetes mellitus complication detail: with chronic kidney disease Diabetes mellitus complication status: with kidney complications Diabetes mellitus mcc insulin use: without mcc use Diabetes mellitus type: type 2 Qualified Code(s): E11.22 - Type 2 diabetes mellitus with diabetic chronic kidney disease Code(s): E11.9 - Type 2 diabetes mellitus without complications Status: Chronic Assessment and Plan: Patient has a history of type 2 diabetes.? However she has been off of her medications for the past 2 years since 2022.? She has not followed with any providers since 2022.? Diabetes complicated by previous diabetic foot infection requiring a left BKA in 2022. Blood sugars relatively controlled - hypoglycemia protocol - POC blood glucose ACHS - correct regimen ordered - high dose TIDWM and HS - A1C 8.6% on 02/05/2025 - staff educator consulted - dietitian consulted (3) Elevated TSH: Code(s): R79.89 - Other specified abnormal findings of blood chemistry Status: Acute Assessment and Plan: TSH 6.320 on 02/05.? Previously within normal limits in August of 2022.? Hasn't been taking regularly T3 normal, --Will check T3/T4. --Continue Synthroid (4) Hypertension: Qualifiers: Hypertension type: primary hypertension Qualified Code(s): I10 - Essential (primary) hypertension Code(s): I10 - Essential (primary) hypertension Status: Acute Assessment and Plan: Home meds: Carvedilol 3.125 BID, Hydralazine 50 q6 but untreated, off meds the past 2 years. Arrived significantly hypertensive to [facility], BP 218/115. Titrating meds -restarted Coreg 3.125<25 mg b.i.d --s/p Bumex IV then lasix drip, now on bumex TID --hydralazine 50<100 QID (5) Anemia: Qualifiers: Anemia type: due to chronic kidney disease Chronic kidney disease stage: unspecified stage Qualified Code(s): N18.9 - Chronic kidney disease, unspecified; D63.1 - Anemia in chronic kidney disease Code(s): D64.9 - Anemia, unspecified Status: Acute Assessment and Plan: H&H 9.07/23 Patient has history of anemia, likely secondary to CKD. Hemoglobin 10.6 upon admission. Previously 7.2 upon discharge on 09/27/2022. 02/05 Ferritin 16, Iron 29, TIBC 400, %Sat 7 02/07 Iron 619, TIBC 375,, %Sat 165 s/p venofer 400mg x1 02/06 - transfuse if <7 (6) Acute kidney injury: Code(s): N17.9 - Acute kidney failure, unspecified Status: Acute Assessment and Plan: Admitted for GARRISON. HD cath placed 02/08. Started on HD. 02/12 Kidney biopsy, PATH: The biopsy shows chronic injury consistent with a combination of vascular disease, ischemic injury, and diabetic nephropathy. There is no evidence of a superimposed active disease process. 02/13 Renal US: Right kidney is unremarkable. Left kidney is not visualized. PLAN --Neph following, daily labs --Dialysis center set up, plan for dialysis on Tuesday changed morphine to dilaudid with ESRD. Hasn't been using since then, stop --follow cbc, bmp (7) Anxiety: Code(s): F41.9 - Anxiety disorder, unspecified Status: Acute Assessment and Plan: Pt reported an increase / ongoing anxiety since being in the hospital. She reports that she has been rx something in the past for anxiety that she took on a PRN basis and it was non-sedating but she cannot remember the name -Ordered Buspirone 10mg BID PRN for her 02/12 --Pt had an anxiety episode with some itching. One time dose of hydroxyzine 25mg given. Plan Pending HD and kidney biopsy potentially 02/13, monitor volume status & BUE edema Time Spent With Patient Time: 57 minutes Subjective Date/time seen: 02/15/25 10:13 Interval history: Still has Generalized edema, especially RUE. Ultrasound was negative for DVT Pain improved. Review of Systems Review of Systems: All systems reviewed & are unremarkable except as noted in HPI and below Exam Narrative: HEENT: PERRL, sclerae nonicteric, pharyngeal mucosa pink and intact NECK: No JVD, adenopathy, or thyromegaly CHEST: Clear to auscultation. Normal effort. Right chest HD cath HEART: NL S1/S2, regular, no murmur ABDOMEN: BS+, soft, nontender, no mass, no bruits EXTREMITIES: No cyanosis, generalized edema, especially RUE, or clubbing NEUROLOGIC: CN intact and symmetric to inspection MUSCULOSKELETAL: Tone and strength symmetric, left BKA PSYCH: Alert. Oriented to person, place, and time Objective Data Vital Signs Vital Signs: Vital Signs - 24 hr 02/14/25 12:00 02/14/25 13:40 02/14/25 13:48 Temperature 98.4 F Pulse Rate 74 78 77 Respiratory Rate 18 Blood Pressure 155/73 H 144/68 H Pulse Oximetry 98 Oxygen Delivery 02/14/25 14:00 02/14/25 14:15 02/14/25 14:30 Temperature Pulse Rate 73 72 72 Respiratory Rate Blood Pressure 131/63 116/67 121/61 Pulse Oximetry Oxygen Delivery 02/14/25 14:45 02/14/25 15:00 02/14/25 15:15 Temperature Pulse Rate 71 70 69 Respiratory Rate Blood Pressure 130/55 L 123/60 128/63 Pulse Oximetry Oxygen Delivery 02/14/25 15:30 02/14/25 15:45 02/14/25 16:00 Temperature Pulse Rate 64 69 69 Respiratory Rate Blood Pressure 122/53 L 133/69 137/69 Pulse Oximetry Oxygen Delivery 02/14/25 16:15 02/14/25 16:30 02/14/25 16:50 Temperature Pulse Rate 69 89 70 Respiratory Rate Blood Pressure 144/73 H 138/67 145/69 H Pulse Oximetry Oxygen Delivery 02/14/25 16:53 02/14/25 18:02 02/14/25 18:03 Temperature 98.5 F 97.4 F L Pulse Rate 71 72 Respiratory Rate 18 16 Blood Pressure 142/72 H 112/48 L 112/48 L Pulse Oximetry 99 97 Oxygen Delivery 02/14/25 20:00 02/14/25 20:00 02/14/25 21:10 Temperature Pulse Rate 76 81 Respiratory Rate Blood Pressure Pulse Oximetry Oxygen Delivery Room Air 02/14/25 21:11 02/15/25 00:00 02/15/25 04:00 Temperature 98.4 F Pulse Rate 81 74 74 Respiratory Rate 16 Blood Pressure 119/63 Pulse Oximetry 97 Oxygen Delivery 02/15/25 06:39 02/15/25 09:42 Temperature 98.7 F Pulse Rate 77 84 Respiratory Rate 14 Blood Pressure 129/63 Pulse Oximetry 97 Oxygen Delivery Intake/Output Intake/Output: Intake & Output 02/12/25 02/13/25 02/14/25 02/15/25 23:59 23:59 23:59 23:59 Intake Total 412 14 0060 590 Output Total 4900 1300 4050 100 Balance -4170 -1210 -3050 490 Meds/Results Medications: Active Medications Generic Name Dose Route Start Last Admin Trade Name Jairo PRN Reason Stop Dose Admin Acetaminophen 650 mg 02/05/25 20:41 02/08/25 21:04 Acetaminophen 325 Mg Tablet PO 650 mg Q4H PRN Administration Mild Pain (1-3) or Fever Hydrocodone Bitart/Acetaminophen 1 tab 02/08/25 11:49 02/15/25 09:53 Hydrocodone/Acetaminophen (*Crx) 5-325 Mg Tablet PO 1 tab Q4H PRN Administration Pain Rated 4-6 Alteplase, Recombinant 2 mg 02/11/25 10:00 02/11/25 10:13 Alteplase 2 Mg Vial (Cathflo) IV PUSH 2 mg ONCE PRN Administration Line Occlusion Alteplase, Recombinant 2 mg 02/11/25 10:01 02/11/25 10:14 Alteplase 2 Mg Vial (Cathflo) IV PUSH 2 mg ONCE PRN Administration Line Occlusion Bumetanide 2 mg 02/07/25 09:00 02/15/25 09:42 Bumetanide Inj 1 Mg/4 Ml Vial IV PUSH 2 mg TID MARGUERITE Administration Buspirone HCl 10 mg 02/10/25 12:43 02/14/25 21:08 Buspirone Hcl 10 Mg Tablet PO 10 mg BID PRN Administration Anxiety Carvedilol 25 mg 02/11/25 21:00 02/15/25 09:42 Carvedilol 25 Mg Tablet PO 25 mg Q12HR MARGUERITE Administration Dextrose 12.5 gm 02/05/25 21:36 Dextrose 50% 25 Gm/50 Ml Syringe IV PUSH PRN PRN Hypoglycemia Protocol Ergocalciferol 1,250 mcg 02/15/25 09:00 02/15/25 09:42 Ergocalciferol (Vitamin D2) 1,250 Mcg (50,000 Units) Capsule PO 1,250 mcg WEEKLY MARGUERITE Administration Escitalopram Oxalate 10 mg 02/14/25 07:00 02/15/25 09:42 Escitalopram Oxalate 10 Mg Tablet PO 10 mg DAILY MARGUERITE Administration Glucagon 1 mg 02/05/25 21:36 Glucagon For Inj 1 Mg Vial IM PRN PRN Hypoglycemia Protocol Glucose 15 gm 02/05/25 21:36 Glucose Oral Gel 15 Gm Of Glucse In 37.5 Gm Tube PO PRN PRN Hypoglycemia Protocol Heparin Sodium (Porcine) 1,000 units 02/11/25 11:47 02/11/25 12:03 Heparin Sodium 1,000 Units/Ml Vial IV PUSH 1,000 units Q1H PRN Administration DIALYSIS Hydralazine HCl 10 mg 02/05/25 20:41 Hydralazine Hcl 20 Mg/Ml Vial IV PUSH Q4H PRN Blood Pressure - High, >180/90 Hydromorphone HCl 0.5 mg 02/13/25 10:50 02/14/25 13:25 Hydromorphone Hcl Inj (*Crx) 1 Mg/Ml Syr IV PUSH 0.5 mg Q4H PRN Administration Breakthrough Pain Dextrose 1,000 mls @ 100 mls/hr 02/05/25 21:36 Dextrose 5% 1,000 Ml IVPB PRN PRN Hypoglycemia Protocol Albumin Human 50 mls @ 999 mls/hr 02/09/25 06:57 Albutein IVPB 03/11/25 06:56 Q10M PRN HYPOTENSION Insulin Aspart 4 - 8 units 02/06/25 08:00 02/15/25 09:42 Insulin Aspart (*Bkc) 100 Units/Ml SUB-Q Not Given TIDWM [facility] Protocol Insulin Aspart 2 - 4 units 02/05/25 21:45 02/14/25 21:15 Insulin Aspart (*Bkc) 100 Units/Ml SUB-Q Not Given HS [facility] Protocol Lisinopril 10 mg 02/15/25 09:00 02/15/25 09:41 Lisinopril 10 Mg Tablet PO 10 mg DAILY MARGUERITE Administration Metolazone 5 mg 02/07/25 09:00 02/15/25 09:41 Metolazone 5 Mg Tablet PO 5 mg QAM MARGUERITE Administration Multi-Ingred Cream/Lotion/Oil/Oint 1 applic 02/13/25 09:00 02/15/25 09:43 Eucerin Cream 120 Gm Jar TOPICAL 1 applic DAILY MARGUERITE Administration Ondansetron HCl 4 mg 02/05/25 20:41 Ondansetron Inj 4 Mg/2 Ml Vial IV PUSH Q6H PRN Nausea And Vomiting Oxycodone HCl 5 mg 02/08/25 11:08 02/13/25 21:58 Oxycodone Hcl (*Crx) 5 Mg Tab Ir PO 5 mg Q6H PRN Administration Pain Rated 7-10 Pantoprazole Sodium 40 mg 02/14/25 09:00 02/15/25 09:42 Pantoprazole 40 Mg Tablet PO 40 mg DAILY MARGUERITE Administration Radiology Results: ITS Impressions Renal Ultrasound 02/06/25 17:09 IMPRESSION: Right kidney is unremarkable. Left kidney is not visualized. Chest X-Ray 02/08/25 11:41 IMPRESSION: 1. Likely tunneled large-bore dual-lumen] central venous catheter with distal tip in the midsuperior vena cava. 2. Pleural effusions with associated bibasilar atelectasis and/or pneumonia. Venous Doppler Study 02/10/25 17:43 Impression: Negative for DVT. Renal Biopsy CT 02/13/25 10:19 IMPRESSION: 1. Successful CT-guided random left kidney biopsy. Labs Labs: Laboratory Results - last 24 hr 02/14/25 02/14/25 02/14/25 11:17 17:16 18:59 WBC RBC Hgb Hct MCV MCH MCHC RDW Plt Count MPV Immature Gran % (Auto) Neut % (Auto) Lymph % (Auto) [place] % (Auto) Eos % (Auto) Baso % (Auto) Lymph # (Auto) [place] # (Auto) Eos # (Auto) Baso # (Auto) Abs Immat Gran (auto) Absolute Neuts (auto) Absolute Nucleated RBC Band Neutrophils % Nucleated RBC % Platelet Estimate Hypochromasia Anisocytosis Ovalocytes Schistocytes Sodium Potassium Chloride Carbon Dioxide Anion Gap BUN Creatinine Estim Creat Clear Calc Estimated GFR Glucose POC Capillary Glucose 153 H 137 H Calcium Phosphorus Total Bilirubin AST ALT Alkaline Phosphatase Total Protein Albumin Vitamin D 25-Hydroxy PTH Intact Urine Eosinophils None seen 02/14/25 02/15/25 02/15/25 21:14 05:00 07:46 WBC 8.0 RBC 3.82 L Hgb 9.1 L Hct 30.8 L MCV 80.6 MCH 23.8 L MCHC 29.5 L RDW 22.2 H Plt Count 476 H MPV 10.0 Immature Gran % (Auto) 0.4 Neut % (Auto) 64.2 Lymph % (Auto) 17.5 L [place] % (Auto) 14.1 H Eos % (Auto) 3.4 Baso % (Auto) 0.4 Lymph # (Auto) 1.40 [place] # (Auto) 1.1 H Eos # (Auto) 0.3 Baso # (Auto) 0.0 Abs Immat Gran (auto) 0.03 Absolute Neuts (auto) 5.1 Absolute Nucleated RBC 0.000 Band Neutrophils % Not Reportable Nucleated RBC % 0.0 Platelet Estimate Slightly increased Hypochromasia 1+ Anisocytosis 1+ Ovalocytes 1+ Schistocytes None seen Sodium 134 L Potassium 3.7 Chloride 101 Carbon Dioxide 26 Anion Gap 7 BUN 38 H Creatinine 6.15 H Estim Creat Clear Calc 13 Estimated GFR 7 L Glucose 99 POC Capillary Glucose 184 H 96 Calcium 8.0 L Phosphorus 5.3 H Total Bilirubin 0.3 AST 20 ALT 12 Alkaline Phosphatase 97 Total Protein 5.7 L Albumin 2.9 L Vitamin D 25-Hydroxy < 12.8 PTH Intact 196.8 H Urine Eosinophils Quality VTE Prophylaxis VTE prophylaxis: mechanical ordered Hospitalist MIPS Advance Care Plan I have confirmed that the patient's Advanced Care Plan is present, code status is documented, or surrogate decision maker is listed in patient medical record.: Yes Medication Reconciliation I have utilized all available resources to obtain, update and review the patients current medications (includes all prescriptions, OTC, herbals, cannabis, and nutritional supplements).: Yes
--- NOTE | 2025-02-15 12:12 | P.PNNP_ITS ---
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 - findings consistent with ischemic injury, vascular disease and diabetes - severe/diffuse interstitial fibrosis and tubular atrophy (~ 90%) * renal biopsy findings likely explains presentation: * volume overload * anasarca * metabolic acidosis * anemia * evaluation since admission already noted: * urine electrolytes non-prerenal * UA with blood and protein * CPK mildly elevated but not enough to affect kidney function * renal ultrasound okay (unable to visualize left kidney) * nephrotic range proteinuria noted (> 10 grams) * negative serological evaluation * elevated CRP and ESR noted * no significant improvement with diuretic therapy * s/p HD catheter placement on 02/08 * initiated on HIRED WORKER/HD on 02/08 * daily HD/DUF for clearance and fluid removal * plan HD tomorrow * noted outpatient schedule of M/W/F at [facility] (2) Volume overload: Code(s): E87.70 - Fluid overload, unspecified Status: Acute Assessment and Plan: * slow improvement * as noted by clinical exam (anasarca) * multifactorial etiology: * renal dysfunction * nephrotic range proteinuria/nephrotic syndrome * cardiomyopathy * vascular disease * no real improvement with diuretics * however, still making some urine with use of bumex/metolazone * continue fluid removal with HD/DUF as tolerated * almost 17L negative since admission... (3) Metabolic acidosis: Code(s): E87.20 - Acidosis, unspecified Status: Acute Assessment and Plan: * resolved * quite severe on presentation (CO2 < 5) * presumably due to renal dysfunction * should remain stable with HD treatments (4) Cardiomyopathy: Code(s): I42.9 - Cardiomyopathy, unspecified Status: Acute Assessment and Plan: * acute versus chronic? * ischemic versus non-ischemic? * Echo results noted (02/06): * left ventricular systolic function is severely reduced, estimated at 30 - 35% * left ventricular diastolic function is grade I diastolic dysfunction * mild to moderate mitral valve regurgitation * mild to moderate tricuspid valve regurgitation * moderate pulmonary hypertension, estimated pulmonary arterial systolic pressure is 47 mmHg * mild pulmonic regurgitation * Cardiology following * GMDT maybe somewhat limited by her severe renal dysfunction * will start low dose lisinopril * would not be opposed to use of Entresto if BP can tolerated (5) Hypertension: Qualifiers: Hypertension type: primary hypertension Qualified Code(s): I10 - Essential (primary) hypertension Code(s): I10 - Essential (primary) hypertension Status: Acute Assessment and Plan: * quite elevated on ER presentation (systolic BP > 200) * better control in general * switch hydralazine to lisinopril * continue carvedilol * continue dialysis/fluid removal * follow trend of hemodynamics (6) Anemia: Qualifiers: Anemia type: due to chronic kidney disease Chronic kidney disease stage: unspecified stage Qualified Code(s): N18.9 - Chronic kidney disease, unspecified; D63.1 - Anemia in chronic kidney disease Code(s): D64.9 - Anemia, unspecified Status: Acute Assessment and Plan: * at least partly related to renal dysfunction * anemia studies demonstrate iron deficiency * s/p IV iron * Epogen with HD * follow trend of H/H (7) Renal osteodystrophy: Code(s): N25.0 - Renal osteodystrophy Status: Acute Assessment and Plan: * calcium and phosphorus stable * Vitamin D low -- started on ergocalciferol * PTH in range (8) Diabetes: Qualifiers: Chronic kidney disease stage: unspecified stage Diabetes mellitus complication detail: with chronic kidney disease Diabetes mellitus complication status: with kidney complications Diabetes mellitus roasterman insulin use: w [facility] fpc use Diabetes mellitus type: type 2 Qualified Code(s): E11.22 - Type 2 diabetes mellitus with diabetic chronic kidney disease Code(s): E11.9 - Type 2 diabetes mellitus without complications Status: Chronic Assessment and Plan: * follow accu-cheks * glycemic control per hospitalist Long and extensive discussion (> 20 minutes) with patient regarding results of renal biopsy and need for continued renal replacement therapy/dialysis at this time and on discharge. Discussed briefly other options for dialysis including peritoneal dialysis as well home hemodialysis and possibility of renal transplantation. She will get more information from her outpatient dialysis clinic also. Not opposed to discharge from renal perspective if outpatient dialysis clinic and schedule have been finalized and is otherwise medically stable. Will continue to follow. L Subjective Date/time seen: 02/15/25 12:12 Interval history: Follow-up for newly diagnosed end stage renal disease. Tolerated dry ultrafiltration session yesterday without any issues or problems; BP pressure has significantly improved at this time (presumably for fluid removal with dialysis/ultrafiltration); sister at bedside and we discussed the situation. Exam 2 Narrative: General: mildly anxious but WD/WN female in NAD Heart: normal S1 and S2; no rub Lungs: decreased at the bases Abdomen: obese but soft, nontender, nondistended, positive bowel sounds Extremities: no cyanosis or clubbing; 2+ edema in RLE and BUEs; s/p left BKA Skin: no nodules Objective Data Vital Signs Vital Signs: Vital Signs Temp Pulse Resp BP Pulse Ox O2 Del Method 02/15/25 12:00 97.9 F 78 18 128/55 L 95 02/15/25 09:42 84 02/15/25 09:10 Room Air 02/15/25 06:39 98.7 F 77 14 129/63 97 02/15/25 04:00 74 02/15/25 00:00 74 02/14/25 21:11 98.4 F 81 16 119/63 97 02/14/25 21:10 81 02/14/25 20:00 76 02/14/25 20:00 Room Air Intake/Output Intake/Output: Intake & Output 02/12/25 02/13/25 02/14/25 02/15/25 23:59 23:59 23:59 23:59 Intake Total 039 21 8392 1180 Output Total 4900 1300 4050 275 Balance -4170 -1210 -3050 905 Meds/Results Medications: Active Medications Generic Name Dose Route Start Last Admin Trade Name Benq PRN Reason Stop Dose Admin Acetaminophen 650 mg 02/05/25 20:41 02/08/25 21:04 Acetaminophen 325 Mg Tablet PO 650 mg Q4H PRN Administration Mild Pain (1-3) or Fever Hydrocodone Bitart/Acetaminophen 1 tab 02/08/25 11:49 02/15/25 09:53 Hydrocodone/Acetaminophen (*Crx) 5-325 Mg Tablet PO 1 tab Q4H PRN Administration Pain Rated 4-6 Alteplase, Recombinant 2 mg 02/11/25 10:00 02/11/25 10:13 Alteplase 2 Mg Vial (Cathflo) IV PUSH 2 mg ONCE PRN Administration Line Occlusion Alteplase, Recombinant 2 mg 02/11/25 10:01 02/11/25 10:14 Alteplase 2 Mg Vial (Cathflo) IV PUSH 2 mg ONCE PRN Administration Line Occlusion Bumetanide 2 mg 02/07/25 09:00 02/15/25 13:46 Bumetanide Inj 1 Mg/4 Ml Vial IV PUSH 2 mg TID MARGUERITE Administration Buspirone HCl 10 mg 02/10/25 12:43 02/14/25 21:08 Buspirone Hcl 10 Mg Tablet PO 10 mg BID PRN Administration Anxiety Carvedilol 25 mg 02/11/25 21:00 02/15/25 09:42 Carvedilol 25 Mg Tablet PO 25 mg Q12HR MARGUERITE Administration Dextrose 12.5 gm 02/05/25 21:36 Dextrose 50% 25 Gm/50 Ml Syringe IV PUSH PRN PRN Hypoglycemia Protocol Ergocalciferol 1,250 mcg 02/15/25 09:00 02/15/25 09:42 Ergocalciferol (Vitamin D2) 1,250 Mcg (50,000 Units) Capsule PO 1,250 mcg WEEKLY MARGUERITE Administration Escitalopram Oxalate 10 mg 02/14/25 07:00 02/15/25 09:42 Escitalopram Oxalate 10 Mg Tablet PO 10 mg DAILY MARGUERITE Administration Glucagon 1 mg 02/05/25 21:36 Glucagon For Inj 1 Mg Vial IM PRN PRN Hypoglycemia Protocol Glucose 15 gm 02/05/25 21:36 Glucose Oral Gel 15 Gm Of Glucse In 37.5 Gm Tube PO PRN PRN Hypoglycemia Protocol Heparin Sodium (Porcine) 1,000 units 02/11/25 11:47 02/11/25 12:03 Heparin Sodium 1,000 Units/Ml Vial IV PUSH 1,000 units Q1H PRN Administration DIALYSIS Hydralazine HCl 10 mg 02/05/25 20:41 Hydralazine Hcl 20 Mg/Ml Vial IV PUSH Q4H PRN Blood Pressure - High, >180/90 Dextrose 1,000 mls @ 100 mls/hr 02/05/25 21:36 Dextrose 5% 1,000 Ml IVPB PRN PRN Hypoglycemia Protocol Albumin Human 50 mls @ 999 mls/hr 02/09/25 06:57 Albutein IVPB 03/11/25 06:56 Q10M PRN HYPOTENSION Insulin Aspart 4 - 8 units 02/06/25 08:00 02/15/25 12:17 Insulin Aspart (*Bkc) 100 Units/Ml SUB-Q Not Given TIDWM [facility] Protocol Insulin Aspart 2 - 4 units 02/05/25 21:45 02/14/25 21:15 Insulin Aspart (*Bkc) 100 Units/Ml SUB-Q Not Given HS [facility] Protocol Lisinopril 10 mg 02/15/25 09:00 02/15/25 09:41 Lisinopril 10 Mg Tablet PO 10 mg DAILY MARGUERITE Administration Metolazone 5 mg 02/07/25 09:00 02/15/25 09:41 Metolazone 5 Mg Tablet PO 5 mg QAM MARGUERITE Administration Multi-Ingred Cream/Lotion/Oil/Oint 1 applic 02/13/25 09:00 02/15/25 09:43 Eucerin Cream 120 Gm Jar TOPICAL 1 applic DAILY MARGUERITE Administration Ondansetron HCl 4 mg 02/05/25 20:41 Ondansetron Inj 4 Mg/2 Ml Vial IV PUSH Q6H PRN Nausea And Vomiting Oxycodone HCl 5 mg 02/08/25 11:08 02/13/25 21:58 Oxycodone Hcl (*Crx) 5 Mg Tab Ir PO 5 mg Q6H PRN Administration Pain Rated 7-10 Pantoprazole Sodium 40 mg 02/14/25 09:00 02/15/25 09:42 Pantoprazole 40 Mg Tablet PO 40 mg DAILY MARGUERITE Administration Radiology Results: ITS Impressions Renal Ultrasound 02/06/25 17:09 IMPRESSION: Right kidney is unremarkable. Left kidney is not visualized. Chest X-Ray 02/08/25 11:41 IMPRESSION: 1. Likely tunneled large-bore dual-lumen] central venous catheter with distal tip in the midsuperior vena cava. 2. Pleural effusions with associated bibasilar atelectasis and/or pneumonia. Venous Doppler Study 02/10/25 17:43 Impression: Negative for DVT. Renal Biopsy CT 02/13/25 10:19 IMPRESSION: 1. Successful CT-guided random left kidney biopsy. Labs Labs: Laboratory Tests 02/15/25 05:00 02/15/25 05:00 Calcium 8.0 L Phosphorus 5.3 H Total Bilirubin 0.3 AST 20 ALT 12 Alkaline Phosphatase 97 Total Protein 5.7 L Albumin 2.9 L Vitamin D 25-Hydroxy < 12.8 PTH Intact 196.8 H
[2025-02-15] MEDS: BUMETANIDE 1 MG TABLET 2 MG PO (22:26)
[2025-02-16] VITALS (26 sets, daily range): BP systolic 109–156; BP diastolic 53–74; PULSE 69–76; RESP 16–22; TEMP 36.5–37; O2SAT 97–100
[2025-02-16 04:46] LABS: Hematocrit 30.3 % (37.0-47.0); Hemoglobin 8.9 g/dL (12.0-15.0); Immature Granulocyte Percent A 0.4 % (0-0.5); Lymphocytes Absolute Auto 1.94 K/mm3 (0.9-3.2); Mean Corpuscular HGB Conc 29.4 g/dl (32-36); Mean Corpuscular Hemoglobin 23.5 pg (26-34); Mean Corpuscular Volume 80.2 fl (80-100); Nucleated Red Blood Cells Absolute Auto 0.000 K/mm3 (0.0-0.012); Nucleated Red Blood Cells Perc 0.0 % (0.0-0.2); Platelet Count Result 505 k/mm3 (150-375); Red Blood Count 3.78 M/mm3 (4.2-5.4); White Blood Count 9.7 K/mm3 (4.5-10.0)
[2025-02-16 05:08] LABS: Ovalocytes Occasional
[2025-02-16 05:09] LABS: Burr Cells Occasional
[2025-02-16 05:10] LABS: Hypochromasia 2+; Schistocytes Rare
[2025-02-16 05:11] LABS: Anisocytosis 1+
[2025-02-16 05:22] LABS: Alanine Aminotransferase 12 U/L (6-35); Albumin Level 2.8 g/dL (3.5-5.1); Alkaline Phosphatase 91 U/L (38-126); Anion Gap 8 mmol/L (4-12); Aspartate Amino Transferase 17 U/L (14-36); Bilirubin,Total 0.3 mg/dL (0.2-1.3); Blood Urea Nitrogen 43 mg/dL (7-17); Calcium 7.8 mg/dL (8.4-10.2); Carbon Dioxide 25 mmol/L (22-30); Chloride 101 mmol/L (98-107); Estimated CRCL calculation 12 ml/min; Estimated Glomerular Filt Rate 7; Glucose 97 mg/dL (65-110); Potassium 3.7 mmol/L (3.4-5.0); Sodium 134 mmol/L (137-145); Total Protein 5.7 g/dL (6.3-8.2)
--- NOTE | 2025-02-16 09:27 | PM.IMPN ---
Progress Note: A&P Assessment and Plan (1) CHF (congestive heart failure): Qualifiers: Heart failure chronicity: acute Heart failure type: unspecified Qualified Code(s): I50.9 - Heart failure, unspecified Code(s): I50.9 - Heart failure, unspecified Status: Acute Assessment and Plan: Patient originally presented for primary complaint of shortness of breath and right lower extremity swelling (history of left BKA).? CXR showed mild CHF.? BNP greater than 30,000. Given new onset renal failure, may be hypervolemia due to acute renal failure/ESRD verses new onset CHF or combination thereof. - BNP greater than 30,000 upon admission on 02/05 - reviewed chart, no previous echo on file - started Bumex 2 mg b.i.d. IV, now on dialysis - monitor I&Os and daily weights - trend renal function - TSH elevated 6.3 T3 0.82/ T4 1.66 (2) Diabetes: Qualifiers: Chronic kidney disease stage: unspecified stage Diabetes mellitus complication detail: with chronic kidney disease Diabetes mellitus complication status: with kidney complications Diabetes mellitus retirement insulin use: without retirement use Diabetes mellitus type: type 2 Qualified Code(s): E11.22 - Type 2 diabetes mellitus with diabetic chronic kidney disease Code(s): E11.9 - Type 2 diabetes mellitus without complications Status: Chronic Assessment and Plan: Patient has a history of type 2 diabetes.? However she has been off of her medications for the past 2 years since 2022.? She has not followed with any providers since 2022.? Diabetes complicated by previous diabetic foot infection requiring a left BKA in 2022. Blood sugars relatively controlled - hypoglycemia protocol - POC blood glucose ACHS - correct regimen ordered - high dose TIDWM and HS - A1C 8.6% on 02/05/2025 - educator senior clinical consulted - dietitian consulted (3) Elevated TSH: Code(s): R79.89 - Other specified abnormal findings of blood chemistry Status: Acute Assessment and Plan: TSH 6.320 on 02/05.? Previously within normal limits in August of 2022.? Hasn't been taking regularly T3 normal, --Will check T3/T4. --Continue Synthroid (4) Hypertension: Qualifiers: Hypertension type: primary hypertension Qualified Code(s): I10 - Essential (primary) hypertension Code(s): I10 - Essential (primary) hypertension Status: Acute Assessment and Plan: Home meds: Carvedilol 3.125 BID, Hydralazine 50 q6 but untreated, off meds the past 2 years. Arrived significantly hypertensive to [facility], BP 218/115. Titrating meds -restarted Coreg 3.125<25 mg b.i.d --s/p Bumex IV then lasix drip, now on bumex TID --hydralazine 50<100 QID (5) Anemia: Qualifiers: Anemia type: due to chronic kidney disease Chronic kidney disease stage: unspecified stage Qualified Code(s): N18.9 - Chronic kidney disease, unspecified; D63.1 - Anemia in chronic kidney disease Code(s): D64.9 - Anemia, unspecified Status: Acute Assessment and Plan: H&H 9.07/23 Patient has history of anemia, likely secondary to CKD. Hemoglobin 10.6 upon admission. Previously 7.2 upon discharge on 09/27/2022. 02/05 Ferritin 16, Iron 29, TIBC 400, %Sat 7 02/07 Iron 619, TIBC 375,, %Sat 165 s/p venofer 400mg x1 02/06 - transfuse if <7 (6) Acute kidney injury: Code(s): N17.9 - Acute kidney failure, unspecified Status: Acute Assessment and Plan: Admitted for GARRISON. HD cath placed 02/08. Started on HD. 02/12 Kidney biopsy, PATH: The biopsy shows chronic injury consistent with a combination of vascular disease, ischemic injury, and diabetic nephropathy. There is no evidence of a superimposed active disease process. 02/13 Renal US: Right kidney is unremarkable. Left kidney is not visualized. PLAN --Neph following, daily labs --Dialysis center set up, plan for dialysis on Tuesday changed morphine to dilaudid with ESRD. Hasn't been using since then, stop --follow cbc, bmp (7) Anxiety: Code(s): F41.9 - Anxiety disorder, unspecified Status: Acute Assessment and Plan: Pt reported an increase / ongoing anxiety since being in the hospital. She reports that she has been rx something in the past for anxiety that she took on a PRN basis and it was non-sedating but she cannot remember the name -Ordered Buspirone 10mg BID PRN for her 02/12 --Pt had an anxiety episode with some itching. One time dose of hydroxyzine 25mg given, change to prn --Ativan 0.5mg daily prn for anxiety if still needed after hydroxyzine Plan Time Spent With Patient Time: 59 minutes Subjective Date/time seen: 02/16/25 09:27 Interval history: VSS. In tears about discharge. Reports she has no way to get to dialysis and needs transportation. is building a ramp at her house and will be done tomorrow. In dialysis today Review of Systems Review of Systems: All systems reviewed & are unremarkable except as noted in HPI and below Exam Narrative: HEENT: PERRL, sclerae nonicteric, pharyngeal mucosa pink and intact NECK: No JVD, adenopathy, or thyromegaly CHEST: Clear to auscultation. Normal effort. Right chest HD cath HEART: NL S1/S2, regular, no murmur ABDOMEN: BS+, soft, nontender, no mass, no bruits EXTREMITIES: No cyanosis, generalized edema, especially RUE, or clubbing NEUROLOGIC: CN intact and symmetric to inspection MUSCULOSKELETAL: Tone and strength symmetric, left BKA PSYCH: Alert. Oriented to person, place, and time Objective Data Vital Signs Vital Signs: Vital Signs - 24 hr 02/15/25 09:42 02/15/25 12:00 02/15/25 14:00 Temperature 97.9 F Pulse Rate 84 78 78 Respiratory Rate 18 Blood Pressure 128/55 L Pulse Oximetry 95 Oxygen Delivery 02/15/25 16:00 02/15/25 20:00 02/15/25 20:00 Temperature Pulse Rate 77 75 Respiratory Rate Blood Pressure Pulse Oximetry Oxygen Delivery Room Air 02/15/25 20:42 02/15/25 21:34 02/16/25 00:00 Temperature 97.9 F Pulse Rate 77 77 73 Respiratory Rate 18 Blood Pressure 142/60 H Pulse Oximetry 97 Oxygen Delivery 02/16/25 04:00 02/16/25 05:48 Temperature 97.8 F Pulse Rate 72 73 Respiratory Rate 16 Blood Pressure 138/55 L Pulse Oximetry 98 Oxygen Delivery Intake/Output Intake/Output: Intake & Output 02/13/25 02/14/25 02/15/25 02/16/25 23:59 23:59 23:59 23:59 Intake Total 90 1000 1420 270 Output Total 5938 4050 275 300 Banner -[id number] -[id number] 1145 -30 Meds/Results Medications: Active Medications Generic Name Dose Route Start Last Admin Trade Name Benq PRN Reason Stop Dose Admin Acetaminophen 650 mg 02/05/25 20:41 02/08/25 21:04 Acetaminophen 325 Mg Tablet PO 650 mg Q4H PRN Administration Mild Pain (1-3) or Fever Hydrocodone Bitart/Acetaminophen 1 tab 02/08/25 11:49 02/15/25 09:53 Hydrocodone/Acetaminophen (*Crx) 5-325 Mg Tablet PO 1 tab Q4H PRN Administration Pain Rated 4-6 Alteplase, Recombinant 2 mg 02/11/25 10:00 02/11/25 10:13 Alteplase 2 Mg Vial (Cathflo) IV PUSH 2 mg ONCE PRN Administration Line Occlusion Alteplase, Recombinant 2 mg 02/11/25 10:01 02/11/25 10:14 Alteplase 2 Mg Vial (Cathflo) IV PUSH 2 mg ONCE PRN Administration Line Occlusion Alteplase, Recombinant 2 mg 02/16/25 09:21 Alteplase 2 Mg Vial (Cathflo) IV PUSH ONCE PRN Line Occlusion Alteplase, Recombinant 2 mg 02/16/25 09:24 Alteplase 2 Mg Vial (Cathflo) IV PUSH ONCE PRN Line Occlusion Bumetanide 2 mg 02/17/25 09:00 Bumetanide 1 Mg Tablet PO [facility] Buspirone HCl 10 mg 02/10/25 12:43 02/14/25 21:08 Buspirone Hcl 10 Mg Tablet PO 10 mg BID PRN Administration Anxiety Carvedilol 25 mg 02/11/25 21:00 02/15/25 20:42 Carvedilol 25 Mg Tablet PO 25 mg Q12HR MARGUERITE Administration Dextrose 12.5 gm 02/05/25 21:36 Dextrose 50% 25 Gm/50 Ml Syringe IV PUSH PRN PRN Hypoglycemia Protocol Epoetin Sergio-epbx 20,000 units 02/16/25 18:12 Epoetin Sergio-Epbx 20,000 Units/Ml Vial IV PUSH 02/16/25 18:13 ONCE ONE Ergocalciferol 1,250 mcg 02/15/25 09:00 02/15/25 09:42 Ergocalciferol (Vitamin D2) 1,250 Mcg (50,000 Units) Capsule PO 1,250 mcg WEEKLY MARGUERITE Administration Escitalopram Oxalate 10 mg 02/14/25 07:00 02/15/25 09:42 Escitalopram Oxalate 10 Mg Tablet PO 10 mg DAILY MARGUERITE Administration Glucagon 1 mg 02/05/25 21:36 Glucagon For Inj 1 Mg Vial IM PRN PRN Hypoglycemia Protocol Glucose 15 gm 02/05/25 21:36 Glucose Oral Gel 15 Gm Of Glucse In 37.5 Gm Tube PO PRN PRN Hypoglycemia Protocol Heparin Sodium (Porcine) 1,000 units 02/11/25 11:47 02/11/25 12:03 Heparin Sodium 1,000 Units/Ml Vial IV PUSH 1,000 units Q1H PRN Administration DIALYSIS Hydralazine HCl 10 mg 02/05/25 20:41 Hydralazine Hcl 20 Mg/Ml Vial IV PUSH Q4H PRN Blood Pressure - High, >180/90 Dextrose 1,000 mls @ 100 mls/hr 02/05/25 21:36 Dextrose 5% 1,000 Ml IVPB PRN PRN Hypoglycemia Protocol Albumin Human 50 mls @ 999 mls/hr 02/09/25 06:57 Albutein IVPB 03/11/25 06:56 Q10M PRN HYPOTENSION Insulin Aspart 4 - 8 units 02/06/25 08:00 02/16/25 08:49 Insulin Aspart (*Bkc) 100 Units/Ml SUB-Q Not Given TIDWM [facility] Protocol Insulin Aspart 2 - 4 units 02/05/25 21:45 02/15/25 20:30 Insulin Aspart (*Bkc) 100 Units/Ml SUB-Q Not Given HS [facility] Protocol Lisinopril 5 mg 02/16/25 09:00 Lisinopril 5 Mg Tablet PO DAILY MARGUERITE Multi-Ingred Cream/Lotion/Oil/Oint 1 applic 02/13/25 09:00 02/15/25 09:43 Eucerin Cream 120 Gm Jar TOPICAL 1 applic DAILY MARGUERITE Administration Ondansetron HCl 4 mg 02/05/25 20:41 Ondansetron Inj 4 Mg/2 Ml Vial IV PUSH Q6H PRN Nausea And Vomiting Oxycodone HCl 5 mg 02/08/25 11:08 02/13/25 21:58 Oxycodone Hcl (*Crx) 5 Mg Tab Ir PO 5 mg Q6H PRN Administration Pain Rated 7-10 Pantoprazole Sodium 40 mg 02/14/25 09:00 02/15/25 09:42 Pantoprazole 40 Mg Tablet PO 40 mg DAILY MARGUERITE Administration Radiology Results: ITS Impressions Renal Ultrasound 02/06/25 17:09 IMPRESSION: Right kidney is unremarkable. Left kidney is not visualized. Chest X-Ray 02/08/25 11:41 IMPRESSION: 1. Likely tunneled large-bore dual-lumen] central venous catheter with distal tip in the midsuperior vena cava. 2. Pleural effusions with associated bibasilar atelectasis and/or pneumonia. Venous Doppler Study 02/10/25 17:43 Impression: Negative for DVT. Renal Biopsy CT 02/13/25 10:19 IMPRESSION: 1. Successful CT-guided random left kidney biopsy. Labs Labs: Laboratory Results - last 24 hr 02/15/25 02/15/25 02/15/25 11:47 16:38 20:28 WBC RBC Hgb Hct MCV MCH MCHC RDW Plt Count MPV Immature Gran % (Auto) Neut % (Auto) Lymph % (Auto) [place] % (Auto) Eos % (Auto) Baso % (Auto) Lymph # (Auto) [place] # (Auto) Eos # (Auto) Baso # (Auto) Abs Immat Gran (auto) Absolute Neuts (auto) Absolute Nucleated RBC Band Neutrophils % Nucleated RBC % Platelet Estimate Large Platelets Hypochromasia Anisocytosis Ovalocytes Greg Cells Schistocytes Sodium Potassium Chloride Carbon Dioxide Anion Gap BUN Creatinine Estim Creat Clear Calc Estimated GFR Glucose POC Capillary Glucose 105 148 H 190 H Calcium Total Bilirubin AST ALT Alkaline Phosphatase Total Protein Albumin 02/16/25 02/16/25 04:29 07:53 WBC 9.7 RBC 3.78 L Hgb 8.9 L Hct 30.3 L MCV 80.2 MCH 23.5 L MCHC 29.4 L RDW 21.9 H Plt Count 505 H MPV 9.8 Immature Gran % (Auto) 0.4 Neut % (Auto) 58.6 Lymph % (Auto) 20.0 [place] % (Auto) 16.6 H Eos % (Auto) 4.0 Baso % (Auto) 0.4 Lymph # (Auto) 1.94 [place] # (Auto) 1.6 H Eos # (Auto) 0.4 H Baso # (Auto) 0.0 Abs Immat Gran (auto) 0.04 H Absolute Neuts (auto) 5.7 Absolute Nucleated RBC 0.000 Band Neutrophils % Not Reportable Nucleated RBC % 0.0 Platelet Estimate Increased Large Platelets Present Hypochromasia 2+ Anisocytosis 1+ Ovalocytes Occasional [place] Cells Occasional Schistocytes Rare Sodium 134 L Potassium 3.7 Chloride 101 Carbon Dioxide 25 Anion Gap 8 BUN 43 H Creatinine 6.85 H Estim Creat Clear Calc 12 Estimated GFR 7 L Glucose 97 POC Capillary Glucose 101 Calcium 7.8 L Total Bilirubin 0.3 AST 17 ALT 12 Alkaline Phosphatase 91 Total Protein 5.7 L Albumin 2.8 L Quality VTE Prophylaxis VTE prophylaxis: mechanical ordered Hospitalist [facility] Advance Care Plan I have confirmed that the patient's Advanced Care Plan is present, code status is documented, or surrogate decision maker is listed in patient medical record.: Yes Medication Reconciliation I have utilized all available resources to obtain, update and review the patients current medications (includes all prescriptions, OTC, herbals, cannabis, and nutritional supplements).: Yes
[2025-02-16] MEDS: ALTEPLASE 2 MG VIAL (CATHFLO) IV PUSH ×2 (09:30)
--- NOTE | 2025-02-16 12:09 | P.PNNP_ITS ---
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 - findings consistent with ischemic injury, vascular disease and diabetes - severe/diffuse interstitial fibrosis and tubular atrophy (~ 90%) * renal biopsy findings likely explains presentation: * volume overload * anasarca * metabolic acidosis * anemia * evaluation since admission already noted: * urine electrolytes non-prerenal * UA with blood and protein * CPK mildly elevated but not enough to affect kidney function * renal ultrasound okay (unable to visualize left kidney) * nephrotic range proteinuria noted (> 10 grams) * negative serological evaluation * elevated CRP and ESR noted * no significant improvement with diuretic therapy * s/p HD catheter placement on 02/08 * 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 * She says that her edema has improved with dialysis * unfortunately she does have right arm swelling which has not gotten better. * In addition the catheter is not working very well. She has had to have alteplace instilled twice before today and we have to do it again. * On chest x-ray it looks like this is subclavian catheter. Possibly it is wedged between the clavicle and the rib. We probably should change it out for a catheter that goes to the IVC. * noted outpatient schedule of M/W/F at [facility] [place] (2) Volume overload: Code(s): E87.70 - Fluid overload, unspecified Status: Acute Assessment and Plan: * slow improvement * as noted by clinical exam (anasarca) * multifactorial etiology: * renal dysfunction * nephrotic range proteinuria/nephrotic syndrome * cardiomyopathy * vascular disease * no real improvement with diuretics * however, still making some urine with use of bumex/metolazone * continue fluid removal with HD/DUF as tolerated * almost 17L negative since admission... (3) Metabolic acidosis: Code(s): E87.20 - Acidosis, unspecified Status: Acute Assessment and Plan: * resolved (4) Cardiomyopathy: Code(s): I42.9 - Cardiomyopathy, unspecified Status: Acute Assessment and Plan: * acute versus chronic? * ischemic versus non-ischemic? * Echo results noted (02/06): * left ventricular systolic function is severely reduced, estimated at 30 - 35% * left ventricular diastolic function is grade I diastolic dysfunction * mild to moderate mitral valve regurgitation * mild to moderate tricuspid valve regurgitation * moderate pulmonary hypertension, estimated pulmonary arterial systolic pressure is 47 mmHg * mild pulmonic regurgitation * Cardiology following * GMDT maybe somewhat limited by her severe renal dysfunction * will start low dose lisinopril * would not be opposed to use of Entresto if BP can tolerated (5) Hypertension: Qualifiers: Hypertension type: primary hypertension Qualified Code(s): I10 - Essential (primary) hypertension Code(s): I10 - Essential (primary) hypertension Status: Acute Assessment and Plan: * quite elevated on ER presentation (systolic BP > 200) * better control in general * switch hydralazine to lisinopril * continue carvedilol * continue dialysis/fluid removal * So far blood pressure seems to be tolerating fluid removal. (6) Anemia: Qualifiers: Anemia type: due to chronic kidney disease Chronic kidney disease stage: unspecified stage Qualified Code(s): N18.9 - Chronic kidney disease, unspecified; D63.1 - Anemia in chronic kidney disease Code(s): D64.9 - Anemia, unspecified Status: Acute Assessment and Plan: * at least partly related to renal dysfunction * anemia studies demonstrate iron deficiency * s/p IV iron * Epogen [id number] with today's HD * follow trend of H/H (7) Renal osteodystrophy: Code(s): N25.0 - Renal osteodystrophy Status: Acute Assessment and Plan: * calcium and phosphorus stable * Vitamin D low -- started on ergocalciferol * PTH in range (8) Diabetes: Qualifiers: Diabetes mellitus type: type 2 Diabetes mellitus long term care phlebotomist insulin use: without skilled nursing use Diabetes mellitus complication status: with kidney complications Diabetes mellitus complication detail: with chronic kidney disease Chronic kidney disease stage: unspecified stage Qualified Code(s): E11.22 - Type 2 diabetes mellitus with diabetic chronic kidney disease Code(s): E11.9 - Type 2 diabetes mellitus without complications Status: Chronic Assessment and Plan: * follow accu-cheks * glycemic control per hospitalist Subjective Date/time seen: 02/16/25 12:09 Interval history: patient is feeling okay. She is on dialysis and tolerating it well. She was seen at 935 a.m. Exam Narrative: General: mildly anxious but WD/WN female in NAD Heart: normal S1 and S2; no rub Lungs: decreased at the bases Abdomen: obese but soft, nontender, nondistended, positive bowel sounds Extremities: no cyanosis or clubbing; 1-2+ edema in RLE and BUEs; s/p left BKA Skin: no nodules Objective Data Vital Signs Vital Signs: Vital Signs - 24 hr 02/15/25 14:00 02/15/25 16:00 02/15/25 20:00 Temperature 97.9 F Pulse Rate 78 77 Respiratory Rate 18 Blood Pressure 128/55 L Pulse Oximetry 95 Oxygen Delivery Room Air 02/15/25 20:00 02/15/25 20:42 02/15/25 21:34 Temperature 97.9 F Pulse Rate 75 77 77 Respiratory Rate 18 Blood Pressure 142/60 H Pulse Oximetry 97 Oxygen Delivery 02/16/25 00:00 02/16/25 04:00 02/16/25 05:48 Temperature 97.8 F Pulse Rate 73 72 73 Respiratory Rate 16 Blood Pressure 138/55 L Pulse Oximetry 98 Oxygen Delivery 02/16/25 08:30 02/16/25 09:06 02/16/25 09:15 Temperature 98.2 F Pulse Rate 75 74 Respiratory Rate 18 Blood Pressure 132/64 121/60 Pulse Oximetry 99 Oxygen Delivery Room Air 02/16/25 10:15 02/16/25 10:30 02/16/25 10:45 Temperature Pulse Rate 73 72 72 Respiratory Rate Blood Pressure 134/67 123/64 132/64 Pulse Oximetry Oxygen Delivery 02/16/25 11:00 02/16/25 11:15 Temperature Pulse Rate 71 71 Respiratory Rate Blood Pressure 125/64 123/65 Pulse Oximetry Oxygen Delivery Intake/Output Intake/Output: Intake & Output 02/13/25 02/14/25 02/15/25 02/16/25 23:59 23:59 23:59 23:59 Intake Total 90 1000 1420 270 Output Total 1300 4050 275 300 Balance -1210 -3050 1145 -30 Meds/Results Medications: Active Medications Generic Name Dose Route Start Last Admin Trade Name Freq PRN Reason Stop Dose Admin Acetaminophen 650 mg 02/05/25 20:41 02/08/25 21:04 Acetaminophen 325 Mg Tablet PO 650 mg Q4H PRN Administration Mild Pain (1-3) or Fever Hydrocodone Bitart/Acetaminophen 1 tab 02/08/25 11:49 02/15/25 09:53 Hydrocodone/Acetaminophen (*Crx) 5-325 Mg Tablet PO 1 tab Q4H PRN Administration Pain Rated 4-6 Alteplase, Recombinant 2 mg 02/11/25 10:00 02/11/25 10:13 Alteplase 2 Mg Vial (Cathflo) IV PUSH 2 mg ONCE PRN Administration Line Occlusion Alteplase, Recombinant 2 mg 02/11/25 10:01 02/11/25 10:14 Alteplase 2 Mg Vial (Cathflo) IV PUSH 2 mg ONCE PRN Administration Line Occlusion Alteplase, Recombinant 2 mg 02/16/25 09:21 Alteplase 2 Mg Vial (Cathflo) IV PUSH ONCE PRN Line Occlusion Alteplase, Recombinant 2 mg 02/16/25 09:24 Alteplase 2 Mg Vial (Cathflo) IV PUSH ONCE PRN Line Occlusion Bumetanide 2 mg 02/17/25 09:00 Bumetanide 1 Mg Tablet PO [facility] Buspirone HCl 10 mg 02/10/25 12:43 02/14/25 21:08 Buspirone Hcl 10 Mg Tablet PO 10 mg BID PRN Administration Anxiety Carvedilol 25 mg 02/11/25 21:00 02/15/25 20:42 Carvedilol 25 Mg Tablet PO 25 mg Q12HR MARGUERITE Administration Dextrose 12.5 gm 02/05/25 21:36 Dextrose 50% 25 Gm/50 Ml Syringe IV PUSH PRN PRN Hypoglycemia Protocol Epoetin Sergio-epbx 20,000 units 02/16/25 18:12 Epoetin Sergio-Epbx 20,000 Units/Ml Vial IV PUSH 02/16/25 18:13 ONCE ONE Ergocalciferol 1,250 mcg 02/15/25 09:00 02/15/25 09:42 Ergocalciferol (Vitamin D2) 1,250 Mcg (50,000 Units) Capsule PO 1,250 mcg WEEKLY MARGUERITE Administration Escitalopram Oxalate 10 mg 02/14/25 07:00 02/15/25 09:42 Escitalopram Oxalate 10 Mg Tablet PO 10 mg DAILY MARGUERITE Administration Glucagon 1 mg 02/05/25 21:36 Glucagon For Inj 1 Mg Vial IM PRN PRN Hypoglycemia Protocol Glucose 15 gm 02/05/25 21:36 Glucose Oral Gel 15 Gm Of Glucse In 37.5 Gm Tube PO PRN PRN Hypoglycemia Protocol Heparin Sodium (Porcine) 1,000 units 02/11/25 11:47 02/11/25 12:03 Heparin Sodium 1,000 Units/Ml Vial IV PUSH 1,000 units Q1H PRN Administration DIALYSIS Hydralazine HCl 10 mg 02/05/25 20:41 Hydralazine Hcl 20 Mg/Ml Vial IV PUSH Q4H PRN Blood Pressure - High, >180/90 Dextrose 1,000 mls @ 100 mls/hr 02/05/25 21:36 Dextrose 5% 1,000 Ml IVPB PRN PRN Hypoglycemia Protocol Albumin Human 50 mls @ 999 mls/hr 02/09/25 06:57 Albutein IVPB 03/11/25 06:56 Q10M PRN HYPOTENSION Insulin Aspart 4 - 8 units 02/06/25 08:00 02/16/25 08:49 Insulin Aspart (*Bkc) 100 Units/Ml SUB-Q Not Given TIDWM MARGUERITE Protocol Insulin Aspart 2 - 4 units 02/05/25 21:45 02/15/25 20:30 Insulin Aspart (*Bkc) 100 Units/Ml SUB-Q Not Given HS [facility] Protocol Lisinopril 5 mg 02/16/25 09:00 Lisinopril 5 Mg Tablet PO DAILY MARGUERITE Multi-Ingred Cream/Lotion/Oil/Oint 1 applic 02/13/25 09:00 02/15/25 09:43 Eucerin Cream 120 Gm Jar TOPICAL 1 applic DAILY MARGUERITE Administration Ondansetron HCl 4 mg 02/05/25 20:41 Ondansetron Inj 4 Mg/2 Ml Vial IV PUSH Q6H PRN Nausea And Vomiting Oxycodone HCl 5 mg 02/08/25 11:08 02/13/25 21:58 Oxycodone Hcl (*Crx) 5 Mg Tab Ir PO 5 mg Q6H PRN Administration Pain Rated 7-10 Pantoprazole Sodium 40 mg 02/14/25 09:00 02/15/25 09:42 Pantoprazole 40 Mg Tablet PO 40 mg DAILY MARGUERITE Administration Radiology Results: ITS Impressions Renal Ultrasound 02/06/25 17:09 IMPRESSION: Right kidney is unremarkable. Left kidney is not visualized. Chest X-Ray 02/08/25 11:41 IMPRESSION: 1. Likely tunneled large-bore dual-lumen] central venous catheter with distal tip in the midsuperior vena cava. 2. Pleural effusions with associated bibasilar atelectasis and/or pneumonia. Venous Doppler Study 02/10/25 17:43 Impression: Negative for DVT. Renal Biopsy CT 02/13/25 10:19 IMPRESSION: 1. Successful CT-guided random left kidney biopsy. Labs Labs: Laboratory Results - last 24 hr 02/15/25 02/15/25 02/16/25 16:38 20:28 04:29 WBC 9.7 RBC 3.78 L Hgb 8.9 L Hct 30.3 L MCV 80.2 MCH 23.5 L MCHC 29.4 L RDW 21.9 H Plt Count 505 H MPV 9.8 Immature Gran % (Auto) 0.4 Neut % (Auto) 58.6 Lymph % (Auto) 20.0 [place] % (Auto) 16.6 H Eos % (Auto) 4.0 Baso % (Auto) 0.4 Lymph # (Auto) 1.94 [place] # (Auto) 1.6 H Eos # (Auto) 0.4 H Baso # (Auto) 0.0 Abs Immat Gran (auto) 0.04 H Absolute Neuts (auto) 5.7 Absolute Nucleated RBC 0.000 Band Neutrophils % Not Reportable Nucleated RBC % 0.0 Platelet Estimate Increased Large Platelets Present Hypochromasia 2+ Anisocytosis 1+ Ovalocytes Occasional Greg Cells Occasional Schistocytes Rare Sodium 134 L Potassium 3.7 Chloride 101 Carbon Dioxide 25 Anion Gap 8 BUN 43 H Creatinine 6.85 H Estim Creat Clear Calc 12 Estimated GFR 7 L Glucose 97 POC Capillary Glucose 148 H 190 H Calcium 7.8 L Total Bilirubin 0.3 AST 17 ALT 12 Alkaline Phosphatase 91 Total Protein 5.7 L Albumin 2.8 L 02/16/25 07:53 WBC RBC Hgb Hct MCV MCH MCHC RDW Plt Count MPV Immature Gran % (Auto) Neut % (Auto) Lymph % (Auto) [place] % (Auto) Eos % (Auto) Baso % (Auto) Lymph # (Auto) [place] # (Auto) Eos # (Auto) Baso # (Auto) Abs Immat Gran (auto) Absolute Neuts (auto) Absolute Nucleated RBC Band Neutrophils % Nucleated RBC % Platelet Estimate Large Platelets Hypochromasia Anisocytosis Ovalocytes Greg Cells Schistocytes Sodium Potassium Chloride Carbon Dioxide Anion Gap BUN Creatinine Estim Creat Clear Calc Estimated GFR Glucose POC Capillary Glucose 101 Calcium Total Bilirubin AST ALT Alkaline Phosphatase Total Protein Albumin
--- NOTE | 2025-02-16 12:10 | PCPTNOTE ---
The patient treatment was not able to be completed this morning due to patient being in dialysis per RN. Will plan to continue treatment per plan of care.
[2025-02-16] MEDS: EPOETIN ALFA-EPBX 20,000 UNITS/ML VIAL 20000 UNITS IV PUSH (13:10)
[2025-02-16] MEDS: PANTOPRAZOLE 40 MG TABLET PO (13:35)
[2025-02-16] MEDS: ESCITALOPRAM OXALATE 10 MG TABLET PO (13:35)
--- NOTE | 2025-02-16 14:05 | PCPTNOTE ---
1340, Attempted to see patient after she had returned from HD, but she was eating lunch and not mentally ready to participate with physical therapy. Nursing had given the patient something to help with her anxiety, but had not kicked in yet. Physical therapy will attempt to see patient at a later date as time allows.
[2025-02-16] MEDS: LORazepam (*CRX) 0.5 MG TABLET PO (15:44)
[2025-02-16] MEDS: EUCERIN CREAM 120 GM JAR 1 APPLIC TOPICAL (17:05)
[2025-02-16] MEDS: HYDROcodone/acetaminophen (*CRX) 5-325 MG TABLET 1 TAB PO (22:38)
[2025-02-17] VITALS (11 sets, daily range): BP systolic 121–140; BP diastolic 56–60; PULSE 72–81; RESP 16–20; TEMP 36.3–36.9; O2SAT 96–98
[2025-02-17 04:47] LABS: Hematocrit 29.0 % (37.0-47.0); Hemoglobin 8.6 g/dL (12.0-15.0); Immature Granulocyte Percent A 0.4 % (0-0.5); Lymphocytes Absolute Auto 1.87 K/mm3 (0.9-3.2); Mean Corpuscular HGB Conc 29.7 g/dl (32-36); Mean Corpuscular Hemoglobin 23.6 pg (26-34); Mean Corpuscular Volume 79.7 fl (80-100); Nucleated Red Blood Cells Absolute Auto 0.020 K/mm3 (0.0-0.012); Nucleated Red Blood Cells Perc 0.2 % (0.0-0.2); Platelet Count Result 401 k/mm3 (150-375); Red Blood Count 3.64 M/mm3 (4.2-5.4); White Blood Count 9.9 K/mm3 (4.5-10.0)
[2025-02-17 05:04] LABS: Alanine Aminotransferase 11 U/L (6-35); Albumin Level 2.8 g/dL (3.5-5.1); Alkaline Phosphatase 95 U/L (38-126); Anion Gap 7 mmol/L (4-12); Aspartate Amino Transferase 19 U/L (14-36); Bilirubin,Total 0.3 mg/dL (0.2-1.3); Blood Urea Nitrogen 33 mg/dL (7-17); Calcium 7.7 mg/dL (8.4-10.2); Carbon Dioxide 26 mmol/L (22-30); Chloride 100 mmol/L (98-107); Estimated CRCL calculation 14 ml/min; Estimated Glomerular Filt Rate 8; Glucose 106 mg/dL (65-110); Potassium 3.7 mmol/L (3.4-5.0); Sodium 133 mmol/L (137-145); Total Protein 5.9 g/dL (6.3-8.2)
[2025-02-17 05:14] LABS: Anisocytosis 1+; Hypochromasia 1+
[2025-02-17 05:15] LABS: Poikilocytosis 1+; Schistocytes Rare
[2025-02-17] MEDS: ESCITALOPRAM OXALATE 10 MG TABLET PO (08:17)
[2025-02-17] MEDS: PANTOPRAZOLE 40 MG TABLET PO (08:17)
[2025-02-17] MEDS: BUMETANIDE 1 MG TABLET 2 MG PO (08:23)
--- NOTE | 2025-02-17 08:40 | P.PNIM_ITS ---
Progress Note: A&P Assessment and Plan (1) CHF (congestive heart failure): Qualifiers: Heart failure chronicity: acute Heart failure type: unspecified Qualified Code(s): I50.9 - Heart failure, unspecified Code(s): I50.9 - Heart failure, unspecified Status: Acute Assessment and Plan: Patient originally presented for primary complaint of shortness of breath and right lower extremity swelling (history of left BKA).? CXR showed mild CHF.? BNP greater than 30,000. Given new onset renal failure, may be hypervolemia due to acute renal failure/ESRD verses new onset CHF or combination thereof. - BNP greater than 30,000 upon admission on 02/05 - reviewed chart, no previous echo on file - started Bumex 2 mg b.i.d. IV, now on dialysis - monitor I&Os and daily weights - trend renal function - TSH elevated 6.3 T3 0.82/ T4 1.66 (2) Diabetes: Qualifiers: Chronic kidney disease stage: unspecified stage Diabetes mellitus complication detail: with chronic kidney disease Diabetes mellitus complication status: with kidney complications Diabetes mellitus residential insulin use: without residential use Diabetes mellitus type: type 2 Qualified Code(s): E11.22 - Type 2 diabetes mellitus with diabetic chronic kidney disease Code(s): E11.9 - Type 2 diabetes mellitus without complications Status: Chronic Assessment and Plan: Patient has a history of type 2 diabetes.? However she has been off of her medications for the past 2 years since 2022.? She has not followed with any providers since 2022.? Diabetes complicated by previous diabetic foot infection requiring a left BKA in 2022. Blood sugars relatively controlled - hypoglycemia protocol - POC blood glucose ACHS - correct regimen ordered - high dose TIDWM and HS - A1C 8.6% on 02/05/2025 - outreach clinician consulted - dietitian consulted (3) Elevated TSH: Code(s): R79.89 - Other specified abnormal findings of blood chemistry Status: Acute Assessment and Plan: TSH 6.320 on 02/05.? Previously within normal limits in August of 2022.? Hasn't been taking regularly T3 normal, --Will check T3 0.82/T4 1.66 --Continue Synthroid (4) Hypertension: Qualifiers: Hypertension type: primary hypertension Qualified Code(s): I10 - Essential (primary) hypertension Code(s): I10 - Essential (primary) hypertension Status: Acute Assessment and Plan: Home meds: Carvedilol 3.125 BID, Hydralazine 50 q6 but untreated, off meds the past 2 years. Arrived significantly hypertensive to [facility], BP 218/115. Titrating meds hydralazine 50<100 QID discontinued -restarted Coreg 3.125<25 mg b.i.d --s/p Bumex IV then lasix drip, now on bumex 2mg on nondialysis days --lisinopril 5mg daily (5) Anemia: Qualifiers: Anemia type: due to chronic kidney disease Chronic kidney disease stage: unspecified stage Qualified Code(s): N18.9 - Chronic kidney disease, unspecified; D63.1 - Anemia in chronic kidney disease Code(s): D64.9 - Anemia, unspecified Status: Acute Assessment and Plan: H&H Patient has history of anemia, likely secondary to CKD. Hemoglobin 10.6 upon admission. Previously 7.2 upon discharge on 09/27/2022. 02/05 Ferritin 16, Iron 29, TIBC 400, %Sat 7 02/07 Iron 619, TIBC 375,, %Sat 165 s/p venofer 400mg x1 02/06 - transfuse if <7 (6) Acute kidney injury: Code(s): N17.9 - Acute kidney failure, unspecified Status: Acute Assessment and Plan: Admitted for [facility]. HD cath placed 02/08. Started on HD. 02/12 Kidney biopsy, PATH: The biopsy shows chronic injury consistent with a combination of vascular disease, ischemic injury, and diabetic nephropathy. There is no evidence of a superimposed active disease process. 02/13 Renal US: Right kidney is unremarkable. Left kidney is not visualized. RUE edema persistent on dialysis, R>L. Requiring cath flow daily with dialysis. Dr Ruiz recommended evaluating for new catheter placement. Spoke with Dr. Jones, likely Sunday 02/18 PLAN --Neph following, daily labs --Dialysis center set up, [facility] @ [id number] [facility] health following for RN/PT/OT --Patient very concerned about transportation to and from dialysis. Jose was given information about [facility] service, encouraged to call on Tuesday changed morphine to dilaudid with ESRD. Hasn't been using since then, stop. Restart tomorrow afternoon post procedure prn --follow cbc, bmp (7) Anxiety: Code(s): F41.9 - Anxiety disorder, unspecified Status: Acute Assessment and Plan: Pt reported an increase / ongoing anxiety since being in the hospital. She reports that she has been rx something in the past for anxiety that she took on a PRN basis and it was non-sedating but she cannot remember the name -Ordered Buspirone 10mg BID PRN for her 02/12 --Pt had an anxiety episode with some itching. One time dose of hydroxyzine 25mg given, changed to prn --Ativan 0.5mg daily prn for anxiety if still needed after hydroxyzine Plan Time Spent With Patient Time: [address] Ruiz and Dr. Jones about dialysis catheter and RUE edema Subjective Date/time seen: 02/17/25 08:40 Interval history: Still with significant swelling to upper extremities, right>left. Dopplers were negative for DVT. Dialysis also catheter requiring cath flow frequently. Nephrology recommending catheter exchange. Spoke with surgery, NPO in AM for possible OR. Patient anxious about discharge planning. cancer registry coordinator spoke with her spouse, Jose, and provided information about [facility]. Need to confirm Review of Systems Review of Systems: All systems reviewed & are unremarkable except as noted in HPI and below Exam Narrative: HEENT: PERRL, sclerae nonicteric, pharyngeal mucosa pink and intact NECK: No JVD, adenopathy, or thyromegaly CHEST: Clear to auscultation. Normal effort. Right chest HD cath HEART: NL S1/S2, regular, no murmur ABDOMEN: BS+, soft, nontender, no mass, no bruits EXTREMITIES: No cyanosis, generalized edema, especially RUE, or clubbing NEUROLOGIC: CN intact and symmetric to inspection MUSCULOSKELETAL: Tone and strength symmetric, left BKA PSYCH: Alert. Oriented to person, place, and time Objective Data Vital Signs Vital Signs: Vital Signs - 24 hr 02/16/25 09:06 02/16/25 09:15 02/16/25 10:15 Temperature 98.2 F Pulse Rate 75 74 73 Respiratory Rate 18 Blood Pressure 132/64 121/60 134/67 Pulse Oximetry 99 Oxygen Delivery 02/16/25 10:30 02/16/25 10:45 02/16/25 11:00 Temperature Pulse Rate 72 72 71 Respiratory Rate Blood Pressure 123/64 132/64 125/64 Pulse Oximetry Oxygen Delivery 02/16/25 11:15 02/16/25 11:30 02/16/25 11:45 Temperature Pulse Rate 71 70 69 Respiratory Rate Blood Pressure 123/65 127/65 124/64 Pulse Oximetry Oxygen Delivery 02/16/25 12:00 02/16/25 12:00 02/16/25 12:15 Temperature Pulse Rate 72 72 72 Respiratory Rate Blood Pressure 146/70 H 142/69 H Pulse Oximetry Oxygen Delivery 02/16/25 12:30 02/16/25 12:45 02/16/25 13:00 Temperature Pulse Rate 70 69 69 Respiratory Rate Blood Pressure 150/72 H 135/69 141/71 H Pulse Oximetry Oxygen Delivery 02/16/25 13:13 02/16/25 13:20 02/16/25 13:35 Temperature 98.5 F Pulse Rate 69 71 75 Respiratory Rate 18 Blood Pressure 143/71 H 156/74 H Pulse Oximetry 100 Oxygen Delivery 02/16/25 14:00 02/16/25 16:00 02/16/25 20:00 Temperature 97.9 F Pulse Rate 74 74 Respiratory Rate 22 H Blood Pressure 151/65 H Pulse Oximetry 97 Oxygen Delivery Room Air 02/16/25 20:00 02/16/25 20:45 02/16/25 21:08 Temperature 97.7 F Pulse Rate 73 76 76 Respiratory Rate 16 Blood Pressure 109/53 L Pulse Oximetry 98 Oxygen Delivery 02/17/25 00:00 02/17/25 04:00 02/17/25 05:09 Temperature 97.6 F Pulse Rate 74 73 74 Respiratory Rate 16 Blood Pressure 128/56 L Pulse Oximetry 98 Oxygen Delivery 02/17/25 08:15 02/17/25 08:17 Temperature 97.4 F L Pulse Rate 74 72 Respiratory Rate 16 Blood Pressure 130/59 L Pulse Oximetry 97 Oxygen Delivery Intake/Output Intake/Output: Intake & Output 02/14/25 02/15/25 02/16/25 02/17/25 23:59 23:59 23:59 23:59 Intake Total 1000 1420 690 300 Output Total 4050 275 3600 Balance -3050 1145 -2910 300 Meds/Results Medications: Active Medications Generic Name Dose Route Start Last Admin Trade Name Freq PRN Reason Stop Dose Admin Acetaminophen 650 mg 02/05/25 20:41 02/08/25 21:04 Acetaminophen 325 Mg Tablet PO 650 mg Q4H PRN Administration Mild Pain (1-3) or Fever Hydrocodone Bitart/Acetaminophen 1 tab 02/08/25 11:49 02/16/25 22:38 Hydrocodone/Acetaminophen (*Crx) 5-325 Mg Tablet PO 1 tab Q4H PRN Administration Pain Rated 4-6 Alteplase, Recombinant 2 mg 02/16/25 09:21 02/16/25 09:30 Alteplase 2 Mg Vial (Cathflo) IV PUSH 2 mg ONCE PRN Administration Line Occlusion Alteplase, Recombinant 2 mg 02/16/25 09:24 02/16/25 09:30 Alteplase 2 Mg Vial (Cathflo) IV PUSH 2 mg ONCE PRN Administration Line Occlusion Bumetanide 2 mg 02/17/25 09:00 02/17/25 08:23 Bumetanide 1 Mg Tablet PO 2 mg SuTuThSa MARGUERITE Administration Buspirone HCl 10 mg 02/10/25 12:43 02/16/25 22:39 Buspirone Hcl 10 Mg Tablet PO 10 mg BID PRN Administration Anxiety Carvedilol 25 mg 02/11/25 21:00 02/17/25 08:17 Carvedilol 25 Mg Tablet PO 25 mg Q12HR MARGUERITE Administration Dextrose 12.5 gm 02/05/25 21:36 Dextrose 50% 25 Gm/50 Ml Syringe IV PUSH PRN PRN Hypoglycemia Protocol Ergocalciferol 1,250 mcg 02/15/25 09:00 02/15/25 09:42 Ergocalciferol (Vitamin D2) 1,250 Mcg (50,000 Units) Capsule PO 1,250 mcg WEEKLY MARGUERITE Administration Escitalopram Oxalate 10 mg 02/14/25 07:00 02/17/25 08:17 Escitalopram Oxalate 10 Mg Tablet PO 10 mg DAILY MARGUERITE Administration Glucagon 1 mg 02/05/25 21:36 Glucagon For Inj 1 Mg Vial IM PRN PRN Hypoglycemia Protocol Glucose 15 gm 02/05/25 21:36 Glucose Oral Gel 15 Gm Of Glucse In 37.5 Gm Tube PO PRN PRN Hypoglycemia Protocol Heparin Sodium (Porcine) 1,000 units 02/11/25 11:47 02/11/25 12:03 Heparin Sodium 1,000 Units/Ml Vial IV PUSH 1,000 units Q1H PRN Administration DIALYSIS Hydralazine HCl 10 mg 02/05/25 20:41 Hydralazine Hcl 20 Mg/Ml Vial IV PUSH Q4H PRN Blood Pressure - High, >180/90 Hydroxyzine HCl 25 mg 02/16/25 12:22 02/16/25 13:35 Hydroxyzine Hcl 25 Mg Tablet PO 25 mg Q8H PRN Administration Itching Dextrose 1,000 mls @ 100 mls/hr 02/05/25 21:36 Dextrose 5% 1,000 Ml IVPB PRN PRN Hypoglycemia Protocol Albumin Human 50 mls @ 999 mls/hr 02/09/25 06:57 Albutein IVPB 03/11/25 06:56 Q10M PRN HYPOTENSION Insulin Aspart 4 - 8 units 02/06/25 08:00 02/17/25 08:23 Insulin Aspart (*Bkc) 100 Units/Ml SUB-Q Not Given TIDWM MARGUERITE Protocol Insulin Aspart 2 - 4 units 02/05/25 21:45 02/16/25 21:01 Insulin Aspart (*Bkc) 100 Units/Ml SUB-Q Not Given HS [facility] Protocol Lisinopril 5 mg 02/16/25 09:00 02/17/25 08:17 Lisinopril 5 Mg Tablet PO 5 mg DAILY MARGUERITE Administration Lorazepam 0.5 mg 02/16/25 15:22 02/16/25 15:44 Lorazepam (*Crx) 0.5 Mg Tablet PO 0.5 mg DAILY PRN Administration Anxiety Multi-Ingred Cream/Lotion/Oil/Oint 1 applic 02/13/25 09:00 02/17/25 08:17 Eucerin Cream 120 Gm Jar TOPICAL Not Given DAILY MARGUERITE Ondansetron HCl 4 mg 02/05/25 20:41 Ondansetron Inj 4 Mg/2 Ml Vial IV PUSH Q6H PRN Nausea And Vomiting Oxycodone HCl 5 mg 02/08/25 11:08 02/13/25 21:58 Oxycodone Hcl (*Crx) 5 Mg Tab Ir PO 5 mg Q6H PRN Administration Pain Rated 7-10 Pantoprazole Sodium 40 mg 02/14/25 09:00 02/17/25 08:17 Pantoprazole 40 Mg Tablet PO 40 mg DAILY MARGUERITE Administration Radiology Results: ITS Impressions Renal Ultrasound 02/06/25 17:09 IMPRESSION: Right kidney is unremarkable. Left kidney is not visualized. Chest X-Ray 02/08/25 11:41 IMPRESSION: 1. Likely tunneled large-bore dual-lumen] central venous catheter with distal tip in the midsuperior vena cava. 2. Pleural effusions with associated bibasilar atelectasis and/or pneumonia. Venous Doppler Study 02/10/25 17:43 Impression: Negative for DVT. Renal Biopsy CT 02/13/25 10:19 IMPRESSION: 1. Successful CT-guided random left kidney biopsy. Labs Labs: Laboratory Results - last 24 hr 02/16/25 02/16/25 02/16/25 13:38 16:36 20:42 WBC RBC Hgb Hct MCV MCH MCHC RDW Plt Count MPV Immature Gran % (Auto) Neut % (Auto) Lymph % (Auto) [place] % (Auto) Eos % (Auto) Baso % (Auto) Lymph # (Auto) [place] # (Auto) Eos # (Auto) Baso # (Auto) Abs Immat Gran (auto) Absolute Neuts (auto) Absolute Nucleated RBC Band Neutrophils % Nucleated RBC % Platelet Estimate Hypochromasia Poikilocytosis Anisocytosis Schistocytes Sodium Potassium Chloride Carbon Dioxide Anion Gap BUN Creatinine Estim Creat Clear Calc Estimated GFR Glucose POC Capillary Glucose 106 H 137 H 144 H Calcium Total Bilirubin AST ALT Alkaline Phosphatase Total Protein Albumin 02/17/25 02/17/25 04:37 08:01 WBC 9.9 RBC 3.64 L Hgb 8.6 L Hct 29.0 L MCV 79.7 L MCH 23.6 L MCHC 29.7 L RDW 21.5 H Plt Count 401 H MPV 9.3 Immature Gran % (Auto) 0.4 Neut % (Auto) 58.6 Lymph % (Auto) 18.9 [place] % (Auto) 18.0 H Eos % (Auto) 3.8 Baso % (Auto) 0.3 Lymph # (Auto) 1.87 [place] # (Auto) 1.8 H Eos # (Auto) 0.4 H Baso # (Auto) 0.0 Abs Immat Gran (auto) 0.04 H Absolute Neuts (auto) 5.8 Absolute Nucleated RBC 0.020 H Band Neutrophils % Not Reportable Nucleated RBC % 0.2 Platelet Estimate Adequate Hypochromasia 1+ Poikilocytosis 1+ Anisocytosis 1+ Schistocytes Rare Sodium 133 L Potassium 3.7 Chloride 100 Carbon Dioxide 26 Anion Gap 7 BUN 33 H D Creatinine 5.83 H Estim Creat Clear Calc 14 Estimated GFR 8 L Glucose 106 POC Capillary Glucose 102 Calcium 7.7 L Total Bilirubin 0.3 AST 19 ALT 11 Alkaline Phosphatase 95 Total Protein 5.9 L Albumin 2.8 L Quality VTE Prophylaxis VTE prophylaxis: mechanical ordered Hospitalist [facility] Advance Care Plan I have confirmed that the patient's Advanced Care Plan is present, code status is documented, or surrogate decision maker is listed in patient medical record.: Yes Medication Reconciliation I have utilized all available resources to obtain, update and review the patients current medications (includes all prescriptions, OTC, herbals, cannabis, and nutritional supplements).: Yes
--- NOTE | 2025-02-17 11:07 | P.PNNP_ITS ---
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 - findings consistent with ischemic injury, vascular disease and diabetes - severe/diffuse interstitial fibrosis and tubular atrophy (~ 90%) * renal biopsy findings likely explains presentation: * volume overload * anasarca * metabolic acidosis * anemia * evaluation since admission already noted: * urine electrolytes non-prerenal * UA with blood and protein * CPK mildly elevated but not enough to affect kidney function * renal ultrasound okay (unable to visualize left kidney) * nephrotic range proteinuria noted (> 10 grams) * negative serological evaluation * elevated CRP and ESR noted * no significant improvement with diuretic therapy * s/p HD catheter placement on 02/08 * initiated on [facility] IN RADIOLOGY/HD on 02/08 * daily HD/DUF for clearance and fluid removal * hemodialysis will be done on Tuesday. * She says that her Lower extremity edema has improved with dialysis * unfortunately she does have substantial right arm swelling which has not gotten better. * In addition the catheter is not working very well. She has had to have alteplace instilled each time she has had dialysis. * On chest x-ray it looks like this is subclavian catheter. Possibly it is wedged between the clavicle and the rib. Because of the right upper extremity edema and the poor flows, we should change it out for a catheter that goes to the IVC. I consulted Dr. Juan for this. * noted outpatient schedule of M/W/F at [facility]. Will do dialysis tomorrow early so surgery can have her in the afternoon. (2) Volume overload: Code(s): E87.70 - Fluid overload, unspecified Status: Acute Assessment and Plan: * slow improvement * as noted by clinical exam (anasarca) * multifactorial etiology: * renal dysfunction * nephrotic range proteinuria/nephrotic syndrome * cardiomyopathy * vascular disease * no real improvement with diuretics * however, still making some urine with use of bumex/metolazone * continue fluid removal with HD/DUF as tolerated . 3L removed yesterday. (3) Metabolic acidosis: Code(s): E87.20 - Acidosis, unspecified Status: Acute Assessment and Plan: * resolved (4) Cardiomyopathy: Code(s): I42.9 - Cardiomyopathy, unspecified Status: Acute Assessment and Plan: * acute versus chronic? * ischemic versus non-ischemic? * Echo results noted (02/06): * left ventricular systolic function is severely reduced, estimated at 30 - 35% * left ventricular diastolic function is grade I diastolic dysfunction * mild to moderate mitral valve regurgitation * mild to moderate tricuspid valve regurgitation * moderate pulmonary hypertension, estimated pulmonary arterial systolic pressure is 47 mmHg * mild pulmonic regurgitation * Cardiology following * GMDT maybe somewhat limited by her severe renal dysfunction * will start low dose lisinopril * would not be opposed to use of Entresto if BP can tolerated (5) Hypertension: Qualifiers: Hypertension type: primary hypertension Qualified Code(s): I10 - Essential (primary) hypertension Code(s): I10 - Essential (primary) hypertension Status: Acute Assessment and Plan: * quite elevated on ER presentation (systolic BP > 200) * better control in general * switch hydralazine to lisinopril * continue carvedilol * continue dialysis/fluid removal * So far blood pressure seems to be tolerating fluid removal. Systolic is coming down nicely with fluid removed (6) Anemia: Qualifiers: Anemia type: due to chronic kidney disease Chronic kidney disease stage: unspecified stage Qualified Code(s): N18.9 - Chronic kidney disease, unspecified; D63.1 - Anemia in chronic kidney disease Code(s): D64.9 - Anemia, unspecified Status: Acute Assessment and Plan: * at least partly related to renal dysfunction * anemia studies demonstrate iron deficiency * s/p IV iron * Epogen [id number] with yesterday's dialysis * hemoglobin down a little bit today. (7) Renal osteodystrophy: Code(s): N25.0 - Renal osteodystrophy Status: Acute Assessment and Plan: * calcium and phosphorus stable * Vitamin D low -- started on ergocalciferol * PTH in range (8) Diabetes: Qualifiers: Diabetes mellitus type: type 2 Diabetes mellitus correction insulin use: without terminal operations manager use Diabetes mellitus complication status: with kidney complications Diabetes mellitus complication detail: with chronic kidney disease Chronic kidney disease stage: unspecified stage Qualified Code(s): E11.22 - Type 2 diabetes mellitus with diabetic chronic kidney disease Code(s): E11.9 - Type 2 diabetes mellitus without complications Status: Chronic Assessment and Plan: * follow accu-cheks * glycemic control per hospitalist Subjective Date/time seen: 02/17/25 11:07 Interval history: Patient is alert. Feels less swollen except her right arm is still very swollen. Exam Narrative: General: mildly anxious but WD/WN female in NAD Heart: normal S1 and S2; no rub Lungs: decreased at the bases Abdomen: obese but soft, nontender, nondistended, positive bowel sounds Extremities: no cyanosis or clubbing; 2+ edema in RUE and 1+ everywhere else Skin: no nodules Objective Data Vital Signs Vital Signs: Vital Signs - 24 hr 02/16/25 11:15 02/16/25 11:30 02/16/25 11:45 Temperature Pulse Rate 71 70 69 Respiratory Rate Blood Pressure 123/65 127/65 124/64 Pulse Oximetry Oxygen Delivery 02/16/25 12:00 02/16/25 12:00 02/16/25 12:15 Temperature Pulse Rate 72 72 72 Respiratory Rate Blood Pressure 146/70 H 142/69 H Pulse Oximetry Oxygen Delivery 02/16/25 12:30 02/16/25 12:45 02/16/25 13:00 Temperature Pulse Rate 70 69 69 Respiratory Rate Blood Pressure 150/72 H 135/69 141/71 H Pulse Oximetry Oxygen Delivery 02/16/25 13:13 02/16/25 13:20 02/16/25 13:35 Temperature 98.5 F Pulse Rate 69 71 75 Respiratory Rate 18 Blood Pressure 143/71 H 156/74 H Pulse Oximetry 100 Oxygen Delivery 02/16/25 14:00 02/16/25 16:00 02/16/25 20:00 Temperature 97.9 F Pulse Rate 74 74 Respiratory Rate 22 H Blood Pressure 151/65 H Pulse Oximetry 97 Oxygen Delivery Room Air 02/16/25 20:00 02/16/25 20:45 02/16/25 21:08 Temperature 97.7 F Pulse Rate 73 76 76 Respiratory Rate 16 Blood Pressure 109/53 L Pulse Oximetry 98 Oxygen Delivery 02/17/25 00:00 02/17/25 04:00 02/17/25 05:09 Temperature 97.6 F Pulse Rate 74 73 74 Respiratory Rate 16 Blood Pressure 128/56 L Pulse Oximetry 98 Oxygen Delivery 02/17/25 08:15 02/17/25 08:17 02/17/25 08:17 Temperature 97.4 F L Pulse Rate 74 72 72 Respiratory Rate 16 16 Blood Pressure 130/59 L Pulse Oximetry 97 97 Oxygen Delivery Room Air 02/17/25 08:17 Temperature Pulse Rate 73 Respiratory Rate Blood Pressure Pulse Oximetry Oxygen Delivery Intake/Output Intake/Output: Intake & Output 02/14/25 02/15/25 02/16/25 02/17/25 23:59 23:59 23:59 23:59 Intake Total 1000 1420 690 300 Output Total 4050 275 3600 Balance -3050 1145 -2910 300 Meds/Results Medications: Active Medications Generic Name Dose Route Start Last Admin Trade Name Freq PRN Reason Stop Dose Admin Acetaminophen 650 mg 02/05/25 20:41 02/08/25 21:04 Acetaminophen 325 Mg Tablet PO 650 mg Q4H PRN Administration Mild Pain (1-3) or Fever Hydrocodone Bitart/Acetaminophen 1 tab 02/08/25 11:49 02/16/25 22:38 Hydrocodone/Acetaminophen (*Crx) 5-325 Mg Tablet PO 1 tab Q4H PRN Administration Pain Rated 4-6 Alteplase, Recombinant 2 mg 02/16/25 09:21 02/16/25 09:30 Alteplase 2 Mg Vial (Cathflo) IV PUSH 2 mg ONCE PRN Administration Line Occlusion Alteplase, Recombinant 2 mg 02/16/25 09:24 02/16/25 09:30 Alteplase 2 Mg Vial (Cathflo) IV PUSH 2 mg ONCE PRN Administration Line Occlusion Bumetanide 2 mg 02/17/25 09:00 02/17/25 08:23 Bumetanide 1 Mg Tablet PO 2 mg SuTuThSa MARGUERITE Administration Buspirone HCl 10 mg 02/10/25 12:43 02/16/25 22:39 Buspirone Hcl 10 Mg Tablet PO 10 mg BID PRN Administration Anxiety Carvedilol 25 mg 02/11/25 21:00 02/17/25 08:17 Carvedilol 25 Mg Tablet PO 25 mg Q12HR MARGUERITE Administration Dextrose 12.5 gm 02/05/25 21:36 Dextrose 50% 25 Gm/50 Ml Syringe IV PUSH PRN PRN Hypoglycemia Protocol Ergocalciferol 1,250 mcg 02/15/25 09:00 02/15/25 09:42 Ergocalciferol (Vitamin D2) 1,250 Mcg (50,000 Units) Capsule PO 1,250 mcg WEEKLY MARGUERITE Administration Escitalopram Oxalate 10 mg 02/14/25 07:00 02/17/25 08:17 Escitalopram Oxalate 10 Mg Tablet PO 10 mg DAILY MARGUERITE Administration Glucagon 1 mg 02/05/25 21:36 Glucagon For Inj 1 Mg Vial IM PRN PRN Hypoglycemia Protocol Glucose 15 gm 02/05/25 21:36 Glucose Oral Gel 15 Gm Of Glucse In 37.5 Gm Tube PO PRN PRN Hypoglycemia Protocol Heparin Sodium (Porcine) 1,000 units 02/11/25 11:47 02/11/25 12:03 Heparin Sodium 1,000 Units/Ml Vial IV PUSH 1,000 units Q1H PRN Administration DIALYSIS Hydromorphone HCl 0.5 mg 02/17/25 10:40 Hydromorphone Hcl Inj (*Crx) 1 Mg/Ml Syr IV PUSH Q3H PRN acute pain Hydroxyzine HCl 25 mg 02/16/25 12:22 02/16/25 13:35 Hydroxyzine Hcl 25 Mg Tablet PO 25 mg Q8H PRN Administration Itching Dextrose 1,000 mls @ 100 mls/hr 02/05/25 21:36 Dextrose 5% 1,000 Ml IVPB PRN PRN Hypoglycemia Protocol Albumin Human 50 mls @ 999 mls/hr 02/09/25 06:57 Albutein IVPB 03/11/25 06:56 Q10M PRN HYPOTENSION Insulin Aspart 4 - 8 units 02/06/25 08:00 02/17/25 08:23 Insulin Aspart (*Bkc) 100 Units/Ml SUB-Q Not Given TIDWM MARGUERITE Protocol Insulin Aspart 2 - 4 units 02/05/25 21:45 02/16/25 21:01 Insulin Aspart (*Bkc) 100 Units/Ml SUB-Q Not Given HS MARGUERITE Protocol Lisinopril 5 mg 02/16/25 09:00 02/17/25 08:17 Lisinopril 5 Mg Tablet PO 5 mg DAILY MARGUERITE Administration Lorazepam 0.5 mg 02/16/25 15:22 02/16/25 15:44 Lorazepam (*Crx) 0.5 Mg Tablet PO 0.5 mg DAILY PRN Administration Anxiety Multi-Ingred Cream/Lotion/Oil/Oint 1 applic 02/13/25 09:00 02/17/25 08:17 Eucerin Cream 120 Gm Jar TOPICAL Not Given DAILY MARGUERITE Ondansetron HCl 4 mg 02/05/25 20:41 Ondansetron Inj 4 Mg/2 Ml Vial IV PUSH Q6H PRN Nausea And Vomiting Oxycodone HCl 5 mg 02/08/25 11:08 02/13/25 21:58 Oxycodone Hcl (*Crx) 5 Mg Tab Ir PO 5 mg Q6H PRN Administration Pain Rated 7-10 Pantoprazole Sodium 40 mg 02/14/25 09:00 02/17/25 08:17 Pantoprazole 40 Mg Tablet PO 40 mg DAILY MARGUERITE Administration Radiology Results: ITS Impressions Renal Ultrasound 02/06/25 17:09 IMPRESSION: Right kidney is unremarkable. Left kidney is not visualized. Chest X-Ray 02/08/25 11:41 IMPRESSION: 1. Likely tunneled large-bore dual-lumen] central venous catheter with distal tip in the midsuperior vena cava. 2. Pleural effusions with associated bibasilar atelectasis and/or pneumonia. Venous Doppler Study 02/10/25 17:43 Impression: Negative for DVT. Renal Biopsy CT 02/13/25 10:19 IMPRESSION: 1. Successful CT-guided random left kidney biopsy. Labs Labs: Laboratory Results - last 24 hr 02/16/25 02/16/25 02/16/25 13:38 16:36 20:42 WBC RBC Hgb Hct MCV MCH MCHC RDW Plt Count MPV Immature Gran % (Auto) Neut % (Auto) Lymph % (Auto) [place] % (Auto) Eos % (Auto) Baso % (Auto) Lymph # (Auto) [place] # (Auto) Eos # (Auto) Baso # (Auto) Abs Immat Gran (auto) Absolute Neuts (auto) Absolute Nucleated RBC Band Neutrophils % Nucleated RBC % Platelet Estimate Hypochromasia Poikilocytosis Anisocytosis Schistocytes Sodium Potassium Chloride Carbon Dioxide Anion Gap BUN Creatinine Estim Creat Clear Calc Estimated GFR Glucose POC Capillary Glucose 106 H 137 H 144 H Calcium Total Bilirubin AST ALT Alkaline Phosphatase Total Protein Albumin 02/17/25 02/17/25 04:37 08:01 WBC 9.9 RBC 3.64 L Hgb 8.6 L Hct 29.0 L MCV 79.7 L MCH 23.6 L MCHC 29.7 L RDW 21.5 H Plt Count 401 H MPV 9.3 Immature Gran % (Auto) 0.4 Neut % (Auto) 58.6 Lymph % (Auto) 18.9 [place] % (Auto) 18.0 H Eos % (Auto) 3.8 Baso % (Auto) 0.3 Lymph # (Auto) 1.87 [place] # (Auto) 1.8 H Eos # (Auto) 0.4 H Baso # (Auto) 0.0 Abs Immat Gran (auto) 0.04 H Absolute Neuts (auto) 5.8 Absolute Nucleated RBC 0.020 H Band Neutrophils % Not Reportable Nucleated RBC % 0.2 Platelet Estimate Adequate Hypochromasia 1+ Poikilocytosis 1+ Anisocytosis 1+ Schistocytes Rare Sodium 133 L Potassium 3.7 Chloride 100 Carbon Dioxide 26 Anion Gap 7 BUN 33 H D Creatinine 5.83 H Estim Creat Clear Calc 14 Estimated GFR 8 L Glucose 106 POC Capillary Glucose 102 Calcium 7.7 L Total Bilirubin 0.3 AST 19 ALT 11 Alkaline Phosphatase 95 Total Protein 5.9 L Albumin 2.8 L
[2025-02-18] VITALS (29 sets, daily range): BP systolic 107–154; BP diastolic 58–72; PULSE 63–78; RESP 14–18; TEMP 36.4–37; O2SAT 93–98
[2025-02-18 04:44] LABS: Hematocrit 29.6 % (37.0-47.0); Hemoglobin 8.6 g/dL (12.0-15.0); Immature Granulocyte Percent A 0.3 % (0-0.5); Lymphocytes Absolute Auto 1.65 K/mm3 (0.9-3.2); Mean Corpuscular HGB Conc 29.1 g/dl (32-36); Mean Corpuscular Hemoglobin 23.8 pg (26-34); Mean Corpuscular Volume 81.8 fl (80-100); Nucleated Red Blood Cells Absolute Auto 0.020 K/mm3 (0.0-0.012); Nucleated Red Blood Cells Perc 0.2 % (0.0-0.2); Platelet Count Result 441 k/mm3 (150-375); Red Blood Count 3.62 M/mm3 (4.2-5.4); White Blood Count 9.0 K/mm3 (4.5-10.0)
[2025-02-18 05:06] LABS: Anisocytosis 1+; Hypochromasia 1+; Schistocytes None Seen
[2025-02-18 05:19] LABS: Alanine Aminotransferase 10 U/L (6-35); Albumin Level 2.9 g/dL (3.5-5.1); Alkaline Phosphatase 98 U/L (38-126); Anion Gap 8 mmol/L (4-12); Aspartate Amino Transferase 15 U/L (14-36); Bilirubin,Total 0.4 mg/dL (0.2-1.3); Blood Urea Nitrogen 41 mg/dL (7-17); Calcium 8.0 mg/dL (8.4-10.2); Carbon Dioxide 25 mmol/L (22-30); Chloride 100 mmol/L (98-107); Estimated CRCL calculation 12 ml/min; Estimated Glomerular Filt Rate 7; Glucose 112 mg/dL (65-110); Potassium 3.9 mmol/L (3.4-5.0); Sodium 133 mmol/L (137-145); Total Protein 6.0 g/dL (6.3-8.2)
[2025-02-18] MEDS: ESCITALOPRAM OXALATE 10 MG TABLET PO (10:17)
--- NOTE | 2025-02-18 11:00 | P.PNAN_ITS ---
Anes - Initial Pre Proc Eval Procedure: Operation Date: 02/08/25 10:00 Proposed Procedures p Insertion Tunneled Dialysis Catheter - Edenilson Juan MD Operation Date: 02/18/25 12:00 Proposed Procedures p Removal And Replace Tunneled Dialysis Catheter - Olamn Jones DO Date/Time: 02/18/25 11:00 Surgeon: Jairo Meyer MD Pre Op Diagnosis: acute kidney failure Patient Data Age: 44 Gender: F Height: 1.68 m Weight: 98.3 kg Last Vital Signs Temp 36.4 C L 02/18/25 10:15 Pulse 74 02/18/25 10:17 Resp 16 02/18/25 10:17 BP 152/61 H 02/18/25 10:15 Pulse Ox 97 02/18/25 10:17 O2 Del Method Room Air 02/18/25 10:17 O2 Flow Rate 8 02/08/25 11:05 Allergies Allergy/AdvReac Type Severity Reaction Status Date / Time Penicillins Allergy Intermediate Rash Verified 02/05/25 21:05 adhesive tape Allergy Mild skin Verified 02/05/25 21:32 tears, erythema, itching Home Medications ?Medication ?Instructions ?Recorded ?Confirmed ?Type carvedilol 3.125 mg tablet (Coreg) 3.125 mg PO Q12HR # 60 tabs 09/30/22 02/05/25 Rx cyclobenzaprine 10 mg tablet 5 mg (1/2 x 10 mg) PO Q8H PRN 09/30/22 02/05/25 Rx Muscle Spasm #30 tabs escitalopram oxalate 10 mg tablet 10 mg PO DAILY #30 t abs 09/30/22 02/05/25 Rx hydralazine 50 mg tablet 50 mg PO Q6HR #120 tabs 0612/1502/05/25 Rx insulin detemir U-100 100 unit/mL 20 unit (0.2 mL) sub cut HS 30 days 09/30/22 02/05/25 Rx (3 mL) subcutaneous pen (Levemir #15 mL FlexPen) pantoprazole 40 mg tablet,delayed 40 mg PO Q12HR #60 t abs 09/30/22 02/05/25 Rx release Laboratory Tests 02/17/25 02/17/25 02/17/25 11:58 17:10 21:08 WBC RBC Hgb Hct MCV MCH MCHC RDW Plt Count MPV Immature Gran % (Auto) Neut % (Auto) Lymph % (Auto) [place] % (Auto) Eos % (Auto) Baso % (Auto) Lymph # (Auto) [place] # (Auto) Eos # (Auto) Baso # (Auto) Abs Immat Gran (auto) Absolute Neuts (auto) Absolute Nucleated RBC Band Neutrophils % Nucleated RBC % Platelet Estimate Hypochromasia Anisocytosis Schistocytes Sodium Potassium Chloride Carbon Dioxide Anion Gap BUN Creatinine Estim Creat Clear Calc Estimated GFR Glucose POC Capillary Glucose 128 H mg/dl 139 H mg/dl 145 H mg/dl (65-105) (65-105) (65-105) Calcium Phosphorus Total Bilirubin AST ALT Alkaline Phosphatase Total Protein Albumin 02/18/25 02/18/25 02/18/25 04:29 07:16 10:42 WBC 9.0 K/mm3 (4.5-10.0) RBC 3.62 L M/mm3 (4.2-5.4) Hgb 8.6 L g/dL (12.0-15.0) Hct 29.6 L % (37.0-47.0) MCV 81.8 fl (80-100) MCH 23.8 L pg (26-34) MCHC 29.1 L g/dl (32-36) RDW 21.4 H % (11.5-14.5) Plt Count 441 H k/mm3 (150-375) MPV 9.7 fl (7.4-10.4) Immature Gran % (Auto) 0.3 % (0-0.5) Neut % (Auto) 58.2 % (45.5-73.1) Lymph % (Auto) 18.4 % (18.3-44.2) [place] % (Auto) 18.8 H % (2.6-8.5) Eos % (Auto) 3.9 % (0-4.4) Baso % (Auto) 0.4 % (0.2-1.2) Lymph # (Auto) 1.65 K/mm3 (0.9-3.2) [place] # (Auto) 1.7 H K/mm3 (0.1-0.6) Eos # (Auto) 0.4 H K/mm3 (0-0.3) Baso # (Auto) 0.0 K/mm3 (0.0-0.1) Abs Immat Gran (auto) 0.03 K/mm3 (0.00-0.031) Absolute Neuts (auto) 5.2 K/mm3 (1.3-6.7) Absolute Nucleated RBC 0.020 H K/mm3 (0.0-0.012) Band Neutrophils % Not Reportable Nucleated RBC % 0.2 % (0.0-0.2) Platelet Estimate Adequate (Adequate) Hypochromasia 1+ Anisocytosis 1+ Schistocytes None seen Sodium 133 L mmol/L (137-145) Potassium 3.9 mmol/L (3.4-5.0) Chloride 100 mmol/L (98-107) Carbon Dioxide 25 mmol/L (22-30) Anion Gap 8 mmol/L (4-12) BUN 41 H mg/dL (7-17) Creatinine 6.51 H mg/dL (0.7-1.0) Estim Creat Clear Calc 12 ml/min Estimated GFR 7 L (59 - ) Glucose 112 H mg/dL (65-110) POC Capillary Glucose 105 mg/dl 95 mg/dl (65-105) (65-105) Calcium 8.0 L mg/dL (8.4-10.2) Phosphorus 5.7 H mg/dL (2.5-4.5) Total Bilirubin 0.4 mg/dL (0.2-1.3) AST 15 U/L (14-36) ALT 10 U/L (6-35) Alkaline Phosphatase 98 U/L (38-126) Total Protein 6.0 L g/dL (6.3-8.2) Albumin 2.9 L g/dL (3.5-5.1) Patient hx anesthesia problems: none Family hx anesthesia problems: none Results Review: All pre-operative results and documents have been reviewed as part of the pre- operative evaluation. [facility] Past Medical History Medical History CKD (chronic kidney disease) Diabetic ketoacidosis Last occurrence in 2022 Diabetes type 2, uncontrolled Gestational diabetes Surgical History Surgical History History of left below knee amputation 09/16/2022- left below-knee amputation History of cholecystectomy 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 Code status: Full code. Smoking packs per day: 0 Smoking cigarettes per day: 0.0 Years smoked: 0 Smoking pack-years: 0.00 Smoking status: Never smoker Second hand tobacco smoke exposure: No Alcohol intake: never Drinks per week: 0 Substance use: never Substance use type: does not use Lack of Transportation: No Lack of Food: Never True Current Housing: I Have Housing Concerned About Future Housing: No Difficulty Paying Gas/Electric Bills: No Difficulty Paying for Meds: No Currently Unemployed: No Education: Bachelor's Degree Difficulty w/ Childcare or Family Care: No Living arrangements: with family Additional living arrangements comments: Lives with spouse and children. Occupation/Education: occupation Gender identity (if verbalized by the patient): Female Sexual Orientation (if Verbalized by the Patient): Straight or Heterosexual Spiritual care concerns: No Agree to blood products: No Anes - Eval Final PreProcedure Day of Procedure 02/18/25 11:00 Patient weight: obese Heart: regular rate and rhythm Lungs: clear to auscultation Airway: Mallampati scale class II Neurological: alert and oriented Last oral intake: >/= 8 hours ASA classification: IV Emergent: no Anesthetic plan: proceed Anesthesia type and monitoring: general GIVS and standard monitoring Results Review: All pre-operative results and documents have been reviewed as part of the pre- operative evaluation. Informed Consent: The patient's anesthetic plan and its attendant risks and benefits were discussed with the patient/family/POA. Questions were solicited and answers provided to the satisfaction of the patient/family/POA.
--- NOTE | 2025-02-18 11:14 | WPDHPUPDATE1 ---
History and Physical Update Update Date/Time: 02/18/25 11:14 History and Physical has been reviewed, including an updated exam of the patient. There are NO changes in the patient's condition. Risks, benefits, and alternatives have been discussed and questions answered. Patient agrees to proceed with procedure.
--- NOTE | 2025-02-18 11:14 | PM.PNGS ---
Progress Note: A&P Assessment and Plan (1) Complications, dialysis, catheter, mechanical: Code(s): T82.49XA - Other complication of vascular dialysis catheter, initial encounter Status: Acute Assessment and Plan: Will plan for removal and replacement of tunneled dialysis catheter today under IV sedation. Discussed procedure, risks, benefits, and alternatives. (2) End stage renal disease: Code(s): N18.6 - End stage renal disease Status: Chronic Subjective Subjective Date/Time Seen: 02/18/25 11:14 Interval history: Patient's right subclavian tunneled dialysis catheter is no longer functioning very well. She is in need of new dialysis access to allow discharge soon. Exam Chest: Other: right subclavian tunneled dialysis catheter in place. no redness or drainage. Objective Data Vital Signs Vital Signs: Vital Signs - 24 hr 02/17/25 12:00 02/17/25 14:00 02/17/25 16:00 Temperature 98.5 F Pulse Rate 81 73 72 Respiratory Rate 18 Blood Pressure 121/57 L Pulse Oximetry 97 Oxygen Delivery 02/17/25 20:00 02/17/25 20:00 02/17/25 21:03 Temperature 97.7 F Pulse Rate 72 74 Respiratory Rate 20 Blood Pressure 140/60 Pulse Oximetry 96 Oxygen Delivery Room Air 02/17/25 21:52 02/18/25 00:00 02/18/25 04:00 Temperature Pulse Rate 74 74 74 Respiratory Rate Blood Pressure Pulse Oximetry Oxygen Delivery 02/18/25 04:23 02/18/25 10:15 02/18/25 10:17 Temperature 97.7 F 97.5 F L Pulse Rate 75 77 77 Respiratory Rate 18 16 Blood Pressure 136/58 L 152/61 H Pulse Oximetry 97 97 Oxygen Delivery 02/18/25 10:17 02/18/25 10:17 Temperature Pulse Rate 74 Respiratory Rate 16 Blood Pressure Pulse Oximetry 97 Oxygen Delivery Room Air Intake/Output Intake/Output: Intake & Output 02/15/25 02/16/25 02/17/25 02/18/25 23:59 23:59 23:59 23:59 Intake Total 6878 669 1566 120 Output Total 275 3600 Balance 1145 -2910 1200 120 Meds/Results Medications: Active Medications Generic Name Dose Route Start Last Admin Trade Name Freq PRN Reason Stop Dose Admin Acetaminophen 650 mg 02/05/25 20:41 10/17/25 21:04 Acetaminophen 325 Mg Tablet PO 650 mg Q4H PRN Administration Mild Pain (1-3) or Fever Hydrocodone Bitart/Acetaminophen 1 tab 02/08/25 11:49 02/16/25 22:38 Hydrocodone/Acetaminophen (*Crx) 5-325 Mg Tablet PO 1 tab Q4H PRN Administration Pain Rated 4-6 Alteplase, Recombinant 2 mg 02/16/25 09:21 02/16/25 09:30 Alteplase 2 Mg Vial (Cathflo) IV PUSH 2 mg ONCE PRN Administration Line Occlusion Alteplase, Recombinant 2 mg 02/16/25 09:24 02/16/25 09:30 Alteplase 2 Mg Vial (Cathflo) IV PUSH 2 mg ONCE PRN Administration Line Occlusion Bumetanide 2 mg 02/17/25 09:00 02/17/25 08:23 Bumetanide 1 Mg Tablet PO 2 mg SuTuThSa MARGUERITE Administration Buspirone HCl 10 mg 02/10/25 12:43 02/16/25 22:39 Buspirone Hcl 10 Mg Tablet PO 10 mg BID PRN Administration Anxiety Carvedilol 25 mg 02/11/25 21:00 02/18/25 10:17 Carvedilol 25 Mg Tablet PO 25 mg Q12HR MARGUERITE Administration Dextrose 12.5 gm 02/05/25 21:36 Dextrose 50% 25 Gm/50 Ml Syringe IV PUSH PRN PRN Hypoglycemia Protocol Ergocalciferol 1,250 mcg 02/15/25 09:00 02/15/25 09:42 Ergocalciferol (Vitamin D2) 1,250 Mcg (50,000 Units) Capsule PO 1,250 mcg WEEKLY MARGUERITE Administration Escitalopram Oxalate 10 mg 02/14/25 07:00 02/18/25 10:17 Escitalopram Oxalate 10 Mg Tablet PO 10 mg DAILY MARGUERITE Administration Glucagon 1 mg 02/05/25 21:36 Glucagon For Inj 1 Mg Vial IM PRN PRN Hypoglycemia Protocol Glucose 15 gm 02/05/25 21:36 Glucose Oral Gel 15 Gm Of Glucse In 37.5 Gm Tube PO PRN PRN Hypoglycemia Protocol Heparin Sodium (Porcine) 1,000 units 02/11/25 11:47 02/11/25 12:03 Heparin Sodium 1,000 Units/Ml Vial IV PUSH 1,000 units Q1H PRN Administration DIALYSIS Hydromorphone HCl 0.5 mg 02/17/25 10:40 Hydromorphone Hcl Inj (*Crx) 1 Mg/Ml Syr IV PUSH Q3H PRN acute pain Hydroxyzine HCl 25 mg 02/16/25 12:22 02/16/25 13:35 Hydroxyzine Hcl 25 Mg Tablet PO 25 mg Q8H PRN Administration Itching Dextrose 1,000 mls @ 100 mls/hr 02/05/25 21:36 Dextrose 5% 1,000 Ml IVPB PRN PRN Hypoglycemia Protocol Albumin Human 50 mls @ 999 mls/hr 02/09/25 06:57 Albutein IVPB 03/11/25 06:56 Q10M PRN HYPOTENSION Insulin Aspart 4 - 8 units 02/06/25 08:00 02/18/25 10:31 Insulin Aspart (*Bkc) 100 Units/Ml SUB-Q Not Given TIDWM MARGUERITE Protocol Insulin Aspart 2 - 4 units 02/05/25 21:45 02/17/25 22:25 Insulin Aspart (*Bkc) 100 Units/Ml SUB-Q Not Given HS [facility] Protocol Lisinopril 5 mg 02/16/25 09:00 02/17/25 08:17 Lisinopril 5 Mg Tablet PO 5 mg DAILY MARGUERITE Administration Lorazepam 0.5 mg 02/16/25 15:22 02/16/25 15:44 Lorazepam (*Crx) 0.5 Mg Tablet PO 0.5 mg DAILY PRN Administration Anxiety Miscellaneous Information 1 each 02/17/25 00:01 Please Renew Oxycodone. Per [employer] Procedure, It Will Discontinue If Not Renewed XX 03/19/25 00:00 CLARIFY MARGUERITE Miscellaneous Information 1 each 02/17/25 00:01 Please Renew Norco_. Per [employer] Procedure, It Will Discontinue If Not Renewed XX 03/19/25 00:00 CLARIFY [facility] Multi-Ingred Cream/Lotion/Oil/Oint 1 applic 02/13/25 09:00 02/18/25 10:33 Eucerin Cream 120 Gm Jar TOPICAL Not Given DAILY [facility] Ondansetron HCl 4 mg 02/05/25 20:41 Ondansetron Inj 4 Mg/2 Ml Vial IV PUSH Q6H PRN Nausea And Vomiting Pantoprazole Sodium 40 mg 02/14/25 09:00 02/18/25 10:18 Pantoprazole 40 Mg Tablet PO Not Given DAILY MARGUERITE Radiology Results: ITS Impressions Renal Ultrasound 02/06/25 17:09 IMPRESSION: Right kidney is unremarkable. Left kidney is not visualized. Venous Doppler Study 02/10/25 17:43 Impression: Negative for DVT. Renal Biopsy CT 02/13/25 10:19 IMPRESSION: 1. Successful CT-guided random left kidney biopsy. Chest X-Ray 02/17/25 14:10 Impression: Probable CHF. Repositioning of the dialysis catheter suggested Labs Labs: Laboratory Results - last 24 hr 02/17/25 02/17/25 02/17/25 11:58 17:10 21:08 WBC RBC Hgb Hct MCV MCH MCHC RDW Plt Count MPV Immature Gran % (Auto) Neut % (Auto) Lymph % (Auto) [place] % (Auto) Eos % (Auto) Baso % (Auto) Lymph # (Auto) [place] # (Auto) Eos # (Auto) Baso # (Auto) Abs Immat Gran (auto) Absolute Neuts (auto) Absolute Nucleated RBC Band Neutrophils % Nucleated RBC % Platelet Estimate Hypochromasia Anisocytosis Schistocytes Sodium Potassium Chloride Carbon Dioxide Anion Gap BUN Creatinine Estim Creat Clear Calc Estimated GFR Glucose POC Capillary Glucose 128 H 139 H 145 H Calcium Phosphorus Total Bilirubin AST ALT Alkaline Phosphatase Total Protein Albumin 02/18/25 02/18/25 02/18/25 04:29 07:16 10:42 WBC 9.0 RBC 3.62 L Hgb 8.6 L Hct 29.6 L MCV 81.8 MCH 23.8 L MCHC 29.1 L RDW 21.4 H Plt Count 441 H MPV 9.7 Immature Gran % (Auto) 0.3 Neut % (Auto) 58.2 Lymph % (Auto) 18.4 [place] % (Auto) 18.8 H Eos % (Auto) 3.9 Baso % (Auto) 0.4 Lymph # (Auto) 1.65 [place] # (Auto) 1.7 H Eos # (Auto) 0.4 H Baso # (Auto) 0.0 Abs Immat Gran (auto) 0.03 Absolute Neuts (auto) 5.2 Absolute Nucleated RBC 0.020 H Band Neutrophils % Not Reportable Nucleated RBC % 0.2 Platelet Estimate Adequate Hypochromasia 1+ Anisocytosis 1+ Schistocytes None seen Sodium 133 L Potassium 3.9 Chloride 100 Carbon Dioxide 25 Anion Gap 8 BUN 41 H Creatinine 6.51 H Estim Creat Clear Calc 12 Estimated GFR 7 L Glucose 112 H POC Capillary Glucose 105 95 Calcium 8.0 L Phosphorus 5.7 H Total Bilirubin 0.4 AST 15 ALT 10 Alkaline Phosphatase 98 Total Protein 6.0 L Albumin 2.9 L
[2025-02-18] MEDS: ceFAZolin 2 GM in SODIUM CHLORIDE 0.9% IV 50 ML 100 ML IVPB (11:27)
[2025-02-18] MEDS: LIDO 1%/EPINEPHRINE 1:100,000 50 ML VIAL 20 ML INFILTRATE (11:27)
[2025-02-18] MEDS: HEPARIN SODIUM, PORCINE 10,000 UNITS/10 ML VIAL 3000 UNITS IRRIGATION (11:27)
--- NOTE | 2025-02-18 11:48 | PCNWS ---
Weekly nutritional screen. Patient is tolerating current Renal / Diabetic diet with adequate intake 50-100%. Pt NPO today for dialysis catheter replacement. Pt has no questions regarding diabetic diet. No nutritional recommendations at this time.
--- NOTE | 2025-02-18 12:09 | P.OP_ITS ---
Procedure Note - Detailed Date of Procedure 02/18/25 Pre-op Diagnosis Complications of dialysis catheter, end-stage renal disease Post-op Diagnosis Same Procedure Performed 1. Right internal jugular tunneled dialysis catheter placement using ultrasound and fluoroscopic guidance 2. Removal of right subclavian tunneled dialysis catheter Surgeon Olman Jones DO Cable Driller Medhat Velásquez D.O. Anesthesia MAC and Local (1% lidocaine with epinephrine) Indications This is a 44-year-old woman who has worsening renal failure and now is in need of hemodialysis. She had a tunneled dialysis catheter placed in the right subclavian vein little over 1 week ago, but the catheter appears to have slightly retracted and is becoming kinked and nonfunctioning. She is still in need of dialysis access. Discussions were made with the patient about treatment options and decision was made to proceed with removal and replacement of tunneled dialysis catheter. Dr. Velásquez PGY3 was present and assisted with the entire procedure. Findings SonoSite ultrasound was used to identify the right internal jugular vein. This was visualized as a compressible vessel just lateral to the pulsatile carotid artery. An 18 gauge introducer needle was advanced directly into the lumen of the right internal jugular vein under ultrasound guidance. Dark nonpulsatile blood was aspirated. Fluoroscopy was then used to guide advancement of the guidewire followed by the dilator and sheath. The final fluoroscopic images demonstrated the catheter tip in the distal SVC and no kinks along its path. After confirming adequate placement and function, the right subclavian catheter was then removed. Pressure was held inferior to the right clavicle for about 5 minutes to aid with hemostasis. Description of Procedure Procedure as well as risks, benefits, and alternatives were discussed with patient. Written consent was obtained and placed in chart prior to procedure. Patient was brought back to surgical suite. Placed supine on operating table. Time-out was done confirm patient procedure. IV sedation was then administered by the Anesthesia Department. Her right chest and neck area was prepped and draped in sterile fashion using chlorhexidine prep. Patient was placed in Trendelenburg position. SonoSite ultrasound was used to identify the right internal jugular vein. It was visualized as a compressible vessel just lateral to the carotid artery. 1% lidocaine with epinephrine was infiltrated directly over the vessel under ultrasound guidance. An 18 gauge introducer needle was then advanced under ultrasound guidance directly into the right internal jugular vein. Dark nonpulsatile blood was aspirated. A 0.035 in guidewire was then advanced through the needle under fluoroscopic guidance. The guidewire was visualized advancing all the way down into the superior vena cava. 1% lidocaine with epinephrine was then infiltrated on the right anterior chest and along the tract up to the guidewire insertion site. A 5 mm incision was made with a 15 blade scalpel. A small andrew incision was then also made at the insertion site at the neck. The tunneler was then advanced from the chest incision up to the neck incision and the catheter tubing was brought up through this tract. The dilator and sheath were then advanced over the guidewire under fluoroscopic visualization. The dilator and guidewire were then removed leaving the sheath in place. The catheter tubing was then advanced through the sheath under fluoroscopic guidance. The sheath was unsnapped and carefully peeled away. The catheter tubing was released underneath the neck incision. Fluoroscopy was used to confirm proper placement of the catheter tubing and no kinks along its path. Both lumens were aspirated and flushed with heparinized saline and both lumens function with ease. The catheter was then hep-locked with Hep-Lock solution. The sutures were then cut at the right subclavian catheter insertion site and ge ntle traction was applied to remove the catheter. The catheter was able to be removed with the tip intact. Pressure was then held just inferior to the clavicle for about 5 minutes to help with hemostasis. The skin of the incisions was then approximated using 4-0 Monocryl subcuticular suture. Exofin glue was then applied at the neck incision and 2x2 gauze and Tegaderm drassing applied at the chest. The patient was then awakened from anesthesia and transferred to recovery. Implants 24 cm DuraFlow2 dialysis catheter Estimated Blood Loss 10 Urine Output 800 Complications No immediate complications Condition Stable Disposition Floor [facility] Surgery - Charge Forward: Surgery Billing
--- NOTE | 2025-02-18 13:18 | P.PNIM_ITS ---
Progress Note: A&P Assessment and Plan (1) CHF (congestive heart failure): Qualifiers: Heart failure chronicity: acute Heart failure type: unspecified Qualified Code(s): I50.9 - Heart failure, unspecified Code(s): I50.9 - Heart failure, unspecified Status: Acute Assessment and Plan: Patient originally presented for primary complaint of shortness of breath and right lower extremity swelling (history of left BKA).? CXR showed mild CHF.?Given new onset renal failure related to hypervolemia due to acute renal failure/ESRD and new onset systolic and diastolic CHF BNP greater than 30,000 upon admission on 02/05 Echo showing EF 30-35%, Grade I diastolic dysfunction, mild-mod MR and TR, moderate pHTN. Started Bumex 2 mg b.i.d. IV, now on dialysis HD to control fluid status. Continue GDMT with Coreg, lisinopril. (2) Acute kidney injury: Code(s): N17.9 - Acute kidney failure, unspecified Status: Acute Assessment and Plan: Admitted for GARRISON. HD cath placed 02/08. Started on HD. 02/12 Kidney biopsy shows chronic injury consistent with a combination of vascular disease, ischemic injury, and diabetic nephropathy. There is no evidence of a superimposed active disease process. 02/13 Renal US: Right kidney is unremarkable. Left kidney is not visualized RUE edema and poor flow from dialysis catheter so HD catheter changed today. activity coordinator has arranged for: * Dialysis center set up, [facility] @ [id number] * Pt concerned about transportation to and from dialysis. Jose was given information about [facility] service, encouraged to call on Tuesday Follow. (3) Diabetes: Qualifiers: Chronic kidney disease stage: unspecified stage Diabetes mellitus complication detail: with chronic kidney disease Diabetes mellitus complication status: with kidney complications Diabetes mellitus prison insulin use: without prison use Diabetes mellitus type: type 2 Qualified Code(s): E11.22 - Type 2 diabetes mellitus with diabetic chronic kidney disease Code(s): E11.9 - Type 2 diabetes mellitus without complications Status: Chronic Assessment and Plan: A1c 8.6% on 02/05/2025. She has been off of her medications for the past 2 years since 2022.? She has not followed with any providers since 2022.? Diabetes complicated by previous diabetic foot infection requiring a left BKA in 2022. The patient's blood glucose was reviewed on 02/18 Glucose remains well controlled. Continue AccuCheks covering with sliding scale. Hypoglycemia protocol available as needed. Continue to follow certified diabetes educator consulted Dietitian consulted (4) Hypertension: Qualifiers: Hypertension type: primary hypertension Qualified Code(s): I10 - Essential (primary) hypertension Code(s): I10 - Essential (primary) hypertension Status: Acute Assessment and Plan: Patient's blood pressure was reviewed on 02/18 BP was markedly elevated on admission felt related to fluid overload. Blood pressure better controlled. Will continue to monitor (5) Anemia: Qualifiers: Anemia type: due to chronic kidney disease Chronic kidney disease stage: unspecified stage Qualified Code(s): N18.9 - Chronic kidney disease, unspecified; D63.1 - Anemia in chronic kidney disease Code(s): D64.9 - Anemia, unspecified Status: Acute Assessment and Plan: Hgb in 2022 was in the 7 range. Hgb 10.6 on admission but now mostly in 8-9 range. 02/05: Ferritin 17, Iron 29, TIBC 400, %Sat 7. B12/folate normal. Anemia likely secondary to iron deficiency and probably CKD. Treated with venofer 400mg x1 02/06. Repeat irons studies probably a lab error Receiving intermittent Epogen Monitor Hgb and transfuse if <7 to a stable Hgb (6) Anxiety: Code(s): F41.9 - Anxiety disorder, unspecified Status: Acute Assessment and Plan: Pt having anxiety since being in the hospital. Buspirone 10mg BID PRN on 02/12 Hydroxyzine and Ativan available prn (7) Elevated TSH: Code(s): R79.89 - Other specified abnormal findings of blood chemistry Status: Acute Assessment and Plan: TSH 6.3 with normal FT4. Not on Synthroid. Defer to PCP to repeat thyroid panel when she is well. Plan DVT Prophylaxis - SCDs Code status - full Subjective Date/time seen: 02/18/25 13:18 Interval history: 44yo female with PMH of diabetes, left BKA, CKD, depression, anxiety/panic disorder and DKA who presents on 02/05 with shortness of breath. Assuming care. Chart reviewed. She slept okay. Complaining of right neck pain from the recent tunneled catheter replacement. No SOB. No CP. no n/v. Exam Narrative: AF 97.8 138/65 73 14 96% ra Gen - NARD curerntly undergoing HD Chest - clear anteriorly. Right upper chest tunneled IJ dialysis catheter currently accessed CV - RRR S1/S2 Abs - soft, obese, NT Ext - left BKA. right great toe amp. 2+ right DP Psych - nml mood Skin - warm and dry Objective Data Vital Signs Vital Signs: Vital Signs - 24 hr 02/17/25 14:00 02/17/25 16:00 02/17/25 20:00 Temperature 98.5 F Pulse Rate 73 72 Respiratory Rate 18 Blood Pressure 121/57 L Pulse Oximetry 97 Oxygen Delivery Room Air 02/17/25 20:00 02/17/25 21:03 02/17/25 21:52 Temperature 97.7 F Pulse Rate 72 74 74 Respiratory Rate 20 Blood Pressure 140/60 Pulse Oximetry 96 Oxygen Delivery 02/18/25 00:00 02/18/25 04:00 02/18/25 04:23 Temperature 97.7 F Pulse Rate 74 74 75 Respiratory Rate 18 Blood Pressure 136/58 L Pulse Oximetry 97 Oxygen Delivery 02/18/25 10:15 02/18/25 10:17 02/18/25 10:17 Temperature 97.5 F L Pulse Rate 77 77 Respiratory Rate 16 16 Blood Pressure 152/61 H Pulse Oximetry 97 97 Oxygen Delivery Room Air 02/18/25 10:17 02/18/25 12:19 02/18/25 12:35 Temperature 97.9 F Pulse Rate 74 78 74 Respiratory Rate 16 14 Blood Pressure 133/65 139/64 Pulse Oximetry 93 95 Oxygen Delivery Room Air Room Air 02/18/25 12:50 Temperature 97.8 F Pulse Rate 73 Respiratory Rate 14 Blood Pressure 138/65 Pulse Oximetry 96 Oxygen Delivery Room Air Intake/Output Intake/Output: Intake & Output 02/15/25 02/16/25 02/17/25 02/18/25 23:59 23:59 23:59 23:59 Intake Total 1164 176 0140 170 Output Total 275 3600 800 Balance 1145 -0770 1200 -630 Meds/Results Medications: Active Medications Generic Name Dose Route Start Last Admin Trade Name Freq PRN Reason Stop Dose Admin Acetaminophen 650 mg 02/05/25 20:41 02/08/25 21:04 Acetaminophen 325 Mg Tablet PO 650 mg Q4H PRN Administration Mild Pain (1-3) or Fever Alteplase, Recombinant 2 mg 02/16/25 09:21 02/16/25 09:30 Alteplase 2 Mg Vial (Cathflo) IV PUSH 2 mg ONCE PRN Administration Line Occlusion Alteplase, Recombinant 2 mg 02/16/25 09:24 02/16/25 09:30 Alteplase 2 Mg Vial (Cathflo) IV PUSH 2 mg ONCE PRN Administration Line Occlusion Bumetanide 2 mg 02/17/25 09:00 02/17/25 08:23 Bumetanide 1 Mg Tablet PO 2 mg SuTuThSa MARGUERITE Administration Buspirone HCl 10 mg 02/10/25 12:43 02/16/25 22:39 Buspirone Hcl 10 Mg Tablet PO 10 mg BID PRN Administration Anxiety Carvedilol 25 mg 02/11/25 21:00 02/18/25 10:17 Carvedilol 25 Mg Tablet PO 25 mg Q12HR MARGUERITE Administration Dextrose 12.5 gm 02/05/25 21:36 Dextrose 50% 25 Gm/50 Ml Syringe IV PUSH PRN PRN Hypoglycemia Protocol Ergocalciferol 1,250 mcg 02/15/25 09:00 02/15/25 09:42 Ergocalciferol (Vitamin D2) 1,250 Mcg (50,000 Units) Capsule PO 1,250 mcg WEEKLY MARGUERITE Administration Escitalopram Oxalate 10 mg 02/14/25 07:00 02/18/25 10:17 Escitalopram Oxalate 10 Mg Tablet PO 10 mg DAILY MARGUERITE Administration Glucagon 1 mg 02/05/25 21:36 Glucagon For Inj 1 Mg Vial IM PRN PRN Hypoglycemia Protocol Glucose 15 gm 02/05/25 21:36 Glucose Oral Gel 15 Gm Of Glucse In 37.5 Gm Tube PO PRN PRN Hypoglycemia Protocol Heparin Sodium (Porcine) 1,000 units 02/11/25 11:47 02/11/25 12:03 Heparin Sodium 1,000 Units/Ml Vial IV PUSH 1,000 units Q1H PRN Administration DIALYSIS Hydromorphone HCl 0.5 mg 02/17/25 10:40 Hydromorphone Hcl Inj (*Crx) 1 Mg/Ml Syr IV PUSH Q3H PRN acute pain Hydroxyzine HCl 25 mg 02/16/25 12:22 02/16/25 13:35 Hydroxyzine Hcl 25 Mg Tablet PO 25 mg Q8H PRN Administration Itching Dextrose 1,000 mls @ 100 mls/hr 02/05/25 21:36 Dextrose 5% 1,000 Ml IVPB PRN PRN Hypoglycemia Protocol Albumin Human 50 mls @ 999 mls/hr 02/09/25 06:57 Albutein IVPB 03/11/25 06:56 Q10M PRN HYPOTENSION Insulin Aspart 4 - 8 units 02/06/25 08:00 02/18/25 10:31 Insulin Aspart (*Bkc) 100 Units/Ml SUB-Q Not Given TIDWM MARGUERITE Protocol Insulin Aspart 2 - 4 units 02/05/25 21:45 02/17/25 22:25 Insulin Aspart (*Bkc) 100 Units/Ml SUB-Q Not Given HS [facility] Protocol Lisinopril 5 mg 02/16/25 09:00 02/17/25 08:17 Lisinopril 5 Mg Tablet PO 5 mg DAILY MARGUERITE Administration Lorazepam 0.5 mg 02/16/25 15:22 02/16/25 15:44 Lorazepam (*Crx) 0.5 Mg Tablet PO 0.5 mg DAILY PRN Administration Anxiety Miscellaneous Information 1 each 02/17/25 00:01 Please Renew Oxycodone. Per [employer] Procedure, It Will Discontinue If Not Renewed XX 03/19/25 00:00 CLARIFY MARGUERITE Miscellaneous Information 1 each 02/17/25 00:01 Please Renew Norco_. Per [employer] Procedure, It Will Discontinue If Not Renewed XX 03/19/25 00:00 CLARIFY [facility] Multi-Ingred Cream/Lotion/Oil/Oint 1 applic 02/13/25 09:00 02/18/25 10:33 Eucerin Cream 120 Gm Jar TOPICAL Not Given DAILY [facility] Ondansetron HCl 4 mg 02/05/25 20:41 Ondansetron Inj 4 Mg/2 Ml Vial IV PUSH Q6H PRN Nausea And Vomiting Pantoprazole Sodium 40 mg 02/14/25 09:00 02/18/25 10:18 Pantoprazole 40 Mg Tablet PO Not Given DAILY [facility] Radiology Results: ITS Impressions Renal Ultrasound 02/06/25 17:09 IMPRESSION: Right kidney is unremarkable. Left kidney is not visualized. Venous Doppler Study 02/10/25 17:43 Impression: Negative for DVT. Renal Biopsy CT 02/13/25 10:19 IMPRESSION: 1. Successful CT-guided random left kidney biopsy. Chest X-Ray 02/18/25 12:30 Impression: CHF Central Venous Line 02/18/25 12:38 IMPRESSION: 1. Fluoroscopy utilized during dialysis catheter replacement. See procedure note for further detail. Labs Labs: Laboratory Results - last 24 hr 02/17/25 02/17/25 02/18/25 17:10 21:08 04:29 WBC 9.0 RBC 3.62 L Hgb 8.6 L Hct 29.6 L MCV 81.8 MCH 23.8 L MCHC 29.1 L RDW 21.4 H Plt Count 441 H MPV 9.7 Immature Gran % (Auto) 0.3 Neut % (Auto) 58.2 Lymph % (Auto) 18.4 [place] % (Auto) 18.8 H Eos % (Auto) 3.9 Baso % (Auto) 0.4 Lymph # (Auto) 1.65 [place] # (Auto) 1.7 H Eos # (Auto) 0.4 H Baso # (Auto) 0.0 Abs Immat Gran (auto) 0.03 Absolute Neuts (auto) 5.2 Absolute Nucleated RBC 0.020 H Band Neutrophils % Not Reportable Nucleated RBC % 0.2 Platelet Estimate Adequate Hypochromasia 1+ Anisocytosis 1+ Schistocytes None seen Sodium 133 L Potassium 3.9 Chloride 100 Carbon Dioxide 25 Anion Gap 8 BUN 41 H Creatinine 6.51 H Estim Creat Clear Calc 12 Estimated GFR 7 L Glucose 112 H POC Capillary Glucose 139 H 145 H Calcium 8.0 L Phosphorus 5.7 H Total Bilirubin 0.4 AST 15 ALT 10 Alkaline Phosphatase 98 Total Protein 6.0 L Albumin 2.9 L 02/18/25 02/18/25 02/18/25 07:16 10:42 12:30 WBC RBC Hgb Hct MCV MCH MCHC RDW Plt Count MPV Immature Gran % (Auto) Neut % (Auto) Lymph % (Auto) [place] % (Auto) Eos % (Auto) Baso % (Auto) Lymph # (Auto) [place] # (Auto) Eos # (Auto) Baso # (Auto) Abs Immat Gran (auto) Absolute Neuts (auto) Absolute Nucleated RBC Band Neutrophils % Nucleated RBC % Platelet Estimate Hypochromasia Anisocytosis Schistocytes Sodium Potassium Chloride Carbon Dioxide Anion Gap BUN Creatinine Estim Creat Clear Calc Estimated GFR Glucose POC Capillary Glucose 105 95 108 H Calcium Phosphorus Total Bilirubin AST ALT Alkaline Phosphatase Total Protein Albumin
[2025-02-18] MEDS: HYDROmorphone HCL INJ (*CRX) 1 MG/ML SYR 0.5 MG IV PUSH ×3 (13:22→21:18)
--- NOTE | 2025-02-18 15:09 | PCPTNOTE ---
Attempted to see patient 2x today. Patient declined PT in A.M. due to having scheduled procedure for dialysis catheter. Patient out of room for dialysis treatment this afternoon. PT will continue to follow.
--- NOTE | 2025-02-18 16:10 | P.PNNP_ITS ---
Progress Note: A&P Assessment and Plan (1) End stage renal disease: Code(s): N18.6 - End stage renal disease Status: Chronic Assessment and Plan: * as demonstrated by RENAL BIOPSY: * dvanced nephrosclerosis and class IV diabetic glomerulopathy - findings consistent with ischemic injury, vascular disease and diabetes - severe/diffuse interstitial fibrosis and tubular atrophy (~ 90%) * renal biopsy findings likely explains presentation: * volume overload * anasarca * metabolic acidosis * anemia * evaluation since admission already noted: * urine electrolytes non-prerenal * UA with blood and protein * CPK mildly elevated but not enough to affect kidney function * renal ultrasound okay (unable to visualize left kidney) * nephrotic range proteinuria noted (> 10 grams) * negative serological evaluation * elevated CRP and ESR noted * no significant improvement with diuretic therapy * s/p HD catheter placement on 02/08 * 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/08 * s/p daily HD/DUF for clearance and fluid removal * due to ongoing HD catheter dysfunction and right arm swelling, subclavian HD catheter removed and RIJ HD catheter placed (on 02/18) * HD today * continue M/W/F dialysis schedule as this will be her outpatient schedule (2) Volume overload: Code(s): E87.70 - Fluid overload, unspecified Status: Acute Assessment and Plan: * slow improvement * as noted by clinical exam (anasarca) * multifactorial etiology: * renal dysfunction * nephrotic range proteinuria/nephrotic syndrome * cardiomyopathy * vascular disease * no real improvement with diuretics * however, still making some urine with duretics * continue bumex of non-dialysis days * continue fluid removal with HD/DUF as tolerated (3) Metabolic acidosis: Code(s): E87.20 - Acidosis, unspecified Status: Acute Assessment and Plan: * resolved (4) Cardiomyopathy: Code(s): I42.9 - Cardiomyopathy, unspecified Status: Acute Assessment and Plan: * acute versus chronic? * ischemic versus non-ischemic? * Echo results noted (02/06): * left ventricular systolic function is severely reduced, estimated at 30 - 35% * left ventricular diastolic function is grade I diastolic dysfunction * mild to moderate mitral valve regurgitation * mild to moderate tricuspid valve regurgitation * moderate pulmonary hypertension, estimated pulmonary arterial systolic pressure is 47 mmHg * mild pulmonic regurgitation * Cardiology following * GMDT maybe somewhat limited by her severe renal dysfunction * started low dose lisinopril along with carvedilol * would not be opposed to use of Entresto if BP can tolerate... (5) Hypertension: Qualifiers: Hypertension type: primary hypertension Qualified Code(s): I10 - Essential (primary) hypertension Code(s): I10 - Essential (primary) hypertension Status: Acute Assessment and Plan: * quite elevated on ER presentation (systolic BP > 200) * better control in general * switched hydralazine to lisinopril * continue carvedilol * continue dialysis/fluid removal * follow trend of hemodynamics (6) Anemia: Qualifiers: Anemia type: due to chronic kidney disease Chronic kidney disease stage: unspecified stage Qualified Code(s): N18.9 - Chronic kidney disease, unspecified; D63.1 - Anemia in chronic kidney disease Code(s): D64.9 - Anemia, unspecified Status: Acute Assessment and Plan: * at least partly related to renal dysfunction * anemia studies demonstrate iron deficiency * s/p IV iron * Epogen with HD * follow trend of H/H (7) Renal osteodystrophy: Code(s): N25.0 - Renal osteodystrophy Status: Acute Assessment and Plan: * calcium and phosphorus stable * Vitamin D low -- started on ergocalciferol * PTH in range (8) Diabetes: Qualifiers: Diabetes mellitus type: type 2 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 Will continue to follow. L Subjective Date/time seen: 02/18/25 16:10 Interval history: Follow-up for newly diagnosed end stage renal disease. Chart reviewed since last seen -- ongoing issues with HD catheter dysfunction so s/p new tunneled HD catheter earlier today; tolerating dialysis treatment at the time of my visit (seen on HD at 4:00pm); fluid removal a bit challenging due to relative hypotension; no issues/events overnight or earlier this morning. Exam 2 Narrative: General: mildly anxious but WD/WN female in NAD Heart: normal S1 and S2; no rub Lungs: decreased at the bases Abdomen: obese but soft, nontender, nondistended, positive bowel sounds Extremities: no cyanosis or clubbing; 2+ edema in RLE and BUEs; s/p left BKA Skin: warm and dry Objective Data Vital Signs Vital Signs: Vital Signs Temp Pulse Resp BP Pulse Ox O2 Del Method O2 Flow Rate 02/18/25 16:00 65 115/62 02/18/25 15:45 68 117/63 02/18/25 15:30 69 113/62 02/18/25 15:00 69 117/61 02/18/25 14:45 68 117/64 02/18/25 14:30 68 142/71 H 02/18/25 14:23 69 150/72 H 02/18/25 14:14 98.1 F 70 15 148/70 H 97 02/18/25 14:14 0 02/18/25 13:35 98.6 F 78 18 148/62 H 96 02/18/25 12:50 97.8 F 73 14 138/65 96 Room Air 02/18/25 12:35 74 14 139/64 95 Room Air 02/18/25 12:19 97.9 F 78 16 133/65 93 Room Air 02/18/25 10:17 74 02/18/25 10:17 16 97 Room Air 02/18/25 10:17 77 02/18/25 10:15 97.5 F L 77 16 152/61 H 97 02/18/25 04:23 97.7 F 75 18 136/58 L 97 02/18/25 04:00 74 02/18/25 00:00 74 02/17/25 21:52 74 02/17/25 21:03 97.7 F 74 20 140/60 96 02/17/25 20:00 72 02/17/25 20:00 Room Air Intake/Output Intake/Output: Intake & Output 02/15/25 02/16/25 02/17/25 02/18/25 23:59 23:59 23:59 23:59 Intake Total 8963 270 1084 170 Output Total 275 3600 3700 Balance 1145 -2910 1200 -3530 Meds/Results Medications: Active Medications Generic Name Dose Route Start Last Admin Trade Name Freq PRN Reason Stop Dose Admin Acetaminophen 650 mg 02/05/25 20:41 02/18/25 18:23 Acetaminophen 325 Mg Tablet PO 650 mg Q4H PRN Administration Mild Pain (1-3) or Fever Alteplase, Recombinant 2 mg 02/16/25 09:21 02/16/25 09:30 Alteplase 2 Mg Vial (Cathflo) IV PUSH 2 mg ONCE PRN Administration Line Occlusion Alteplase, Recombinant 2 mg 02/16/25 09:24 02/16/25 09:30 Alteplase 2 Mg Vial (Cathflo) IV PUSH 2 mg ONCE PRN Administration Line Occlusion Bumetanide 2 mg 02/17/25 09:00 02/17/25 08:23 Bumetanide 1 Mg Tablet PO 2 mg SuTuThSa MARGUERITE Administration Buspirone HCl 10 mg 02/10/25 12:43 02/16/25 22:39 Buspirone Hcl 10 Mg Tablet PO 10 mg BID PRN Administration Anxiety Carvedilol 25 mg 02/11/25 21:00 02/18/25 10:17 Carvedilol 25 Mg Tablet PO 25 mg Q12HR MARGUERITE Administration Dextrose 12.5 gm 02/05/25 21:36 Dextrose 50% 25 Gm/50 Ml Syringe IV PUSH PRN PRN Hypoglycemia Protocol Ergocalciferol 1,250 mcg 02/15/25 09:00 02/15/25 09:42 Ergocalciferol (Vitamin D2) 1,250 Mcg (50,000 Units) Capsule PO 1,250 mcg WEEKLY MARGUERITE Administration Escitalopram Oxalate 10 mg 02/14/25 07:00 02/18/25 10:17 Escitalopram Oxalate 10 Mg Tablet PO 10 mg DAILY MARGUERITE Administration Glucagon 1 mg 02/05/25 21:36 Glucagon For Inj 1 Mg Vial IM PRN PRN Hypoglycemia Protocol Glucose 15 gm 02/05/25 21:36 Glucose Oral Gel 15 Gm Of Glucse In 37.5 Gm Tube PO PRN PRN Hypoglycemia Protocol Heparin Sodium (Porcine) 1,000 units 02/11/25 11:47 02/11/25 12:03 Heparin Sodium 1,000 Units/Ml Vial IV PUSH 1,000 units Q1H PRN Administration DIALYSIS Hydromorphone HCl 0.5 mg 02/17/25 10:40 02/18/25 16:02 Hydromorphone Hcl Inj (*Crx) 1 Mg/Ml Syr IV PUSH 0.5 mg Q3H PRN Administration acute pain Hydroxyzine HCl 25 mg 02/16/25 12:22 02/16/25 13:35 Hydroxyzine Hcl 25 Mg Tablet PO 25 mg Q8H PRN Administration Itching Dextrose 1,000 mls @ 100 mls/hr 02/05/25 21:36 Dextrose 5% 1,000 Ml IVPB PRN PRN Hypoglycemia Protocol Albumin Human 50 mls @ 999 mls/hr 02/09/25 06:57 Albutein IVPB 03/11/25 06:56 Q10M PRN HYPOTENSION Insulin Aspart 4 - 8 units 02/06/25 08:00 02/18/25 15:15 Insulin Aspart (*Bkc) 100 Units/Ml SUB-Q Not Given TIDWM MARGUERITE Protocol Insulin Aspart 2 - 4 units 02/05/25 21:45 02/17/25 22:25 Insulin Aspart (*Bkc) 100 Units/Ml SUB-Q Not Given HS MARGUERITE Protocol Lisinopril 5 mg 02/16/25 09:00 02/18/25 15:15 Lisinopril 5 Mg Tablet PO Not Given DAILY MARGUERITE Lorazepam 0.5 mg 02/16/25 15:22 02/16/25 15:44 Lorazepam (*Crx) 0.5 Mg Tablet PO 0.5 mg DAILY PRN Administration Anxiety Miscellaneous Information 1 each 02/17/25 00:01 Please Renew Oxycodone. Per [employer] Procedure, It Will Discontinue If Not Renewed XX 03/19/25 00:00 CLARIFY MARGUERITE Miscellaneous Information 1 each 02/17/25 00:01 Please Renew Norco_. Per [employer] Procedure, It Will Discontinue If Not Renewed XX 03/19/25 00:00 CLARIFY MARGUERITE Multi-Ingred Cream/Lotion/Oil/Oint 1 applic 02/13/25 09:00 02/18/25 10:33 Eucerin Cream 120 Gm Jar TOPICAL Not Given DAILY MARGUERITE Ondansetron HCl 4 mg 02/05/25 20:41 Ondansetron Inj 4 Mg/2 Ml Vial IV PUSH Q6H PRN Nausea And Vomiting Pantoprazole Sodium 40 mg 02/14/25 09:00 10/27/25 10:18 Pantoprazole 40 Mg Tablet PO Not Given DAILY MARGUERITE Radiology Results: ITS Impressions Renal Ultrasound 02/06/25 17:09 IMPRESSION: Right kidney is unremarkable. Left kidney is not visualized. Venous Doppler Study 02/10/25 17:43 Impression: Negative for DVT. Renal Biopsy CT 02/13/25 10:19 IMPRESSION: 1. Successful CT-guided random left kidney biopsy. Chest X-Ray 02/18/25 12:30 Impression: CHF Central Venous Line 02/18/25 12:38 IMPRESSION: 1. Fluoroscopy utilized during dialysis catheter replacement. See procedure note for further detail. Labs Labs: Laboratory Tests 02/18/25 04:29 02/18/25 04:29 Calcium 8.0 L Phosphorus 5.7 H Total Bilirubin 0.4 AST 15 ALT 10 Alkaline Phosphatase 98 Total Protein 6.0 L Albumin 2.9 L
[2025-02-18] MEDS: EPOETIN ALFA-EPBX 10,000 UNITS/ML VIAL 10000 UNITS IV PUSH (16:53)
[2025-02-18] MEDS: ACETAMINOPHEN 325 MG TABLET 650 MG PO (18:23)
[2025-02-18] MEDS: SODIUM CHLORIDE 0.9% IV 1,000 ML 999 ML IV CONT (18:43)
[2025-02-18] MEDS: ALBUMIN HUMAN 25% 12.5 GM/50ML 100 ML 50 GM (18:44)
[2025-02-19] VITALS (10 sets, daily range): BP systolic 124–135; BP diastolic 52–62; PULSE 65–75; RESP 14–18; TEMP 36.4–36.6; O2SAT 97–99
[2025-02-19] MEDS: HYDROmorphone HCL INJ (*CRX) 1 MG/ML SYR 0.5 MG IV PUSH ×2 (00:25→03:23)
[2025-02-19 04:49] LABS: Hematocrit 31.5 % (37.0-47.0); Hemoglobin 9.2 g/dL (12.0-15.0); Immature Granulocyte Percent A 0.4 % (0-0.5); Lymphocytes Absolute Auto 0.83 K/mm3 (0.9-3.2); Mean Corpuscular HGB Conc 29.2 g/dl (32-36); Mean Corpuscular Hemoglobin 23.7 pg (26-34); Mean Corpuscular Volume 81.0 fl (80-100); Nucleated Red Blood Cells Absolute Auto 0.000 K/mm3 (0.0-0.012); Nucleated Red Blood Cells Perc 0.0 % (0.0-0.2); Platelet Count Result 442 k/mm3 (150-375); Red Blood Count 3.89 M/mm3 (4.2-5.4); White Blood Count 7.8 K/mm3 (4.5-10.0)
[2025-02-19 05:22] LABS: Alanine Aminotransferase 9 U/L (6-35); Albumin Level 3.1 g/dL (3.5-5.1); Alkaline Phosphatase 114 U/L (38-126); Anion Gap 5 mmol/L (4-12); Aspartate Amino Transferase 17 U/L (14-36); Bilirubin,Total 0.5 mg/dL (0.2-1.3); Blood Urea Nitrogen 23 mg/dL (7-17); Calcium 8.4 mg/dL (8.4-10.2); Carbon Dioxide 30 mmol/L (22-30); Chloride 95 mmol/L (98-107); Estimated CRCL calculation 20 ml/min; Estimated Glomerular Filt Rate 12; Glucose 126 mg/dL (65-110); Magnesium 2.2 mg/dL (1.6-2.3); Potassium 3.7 mmol/L (3.4-5.0); Sodium 130 mmol/L (137-145); Total Protein 6.3 g/dL (6.3-8.2)
[2025-02-19 05:48] LABS: Hypochromasia 1+
[2025-02-19 05:49] LABS: Anisocytosis 1+; Microcytosis 1+ (NORMAL); Ovalocytes 1+; Poikilocytosis 1+; Target Cells Occasional
[2025-02-19 05:50] LABS: Schistocytes Rare
[2025-02-19] MEDS: HYDROcodone/acetaminophen (*CRX) 5-325 MG TABLET 1 TAB PO ×2 (09:17→16:52)
[2025-02-19] MEDS: PANTOPRAZOLE 40 MG TABLET PO (09:18)
[2025-02-19] MEDS: ESCITALOPRAM OXALATE 10 MG TABLET PO (09:18)
[2025-02-19] MEDS: BUMETANIDE 1 MG TABLET 2 MG PO (09:26)
--- NOTE | 2025-02-19 10:47 | P.PNNP_ITS ---
Progress Note: A&P Assessment and Plan (1) End stage renal disease: Code(s): N18.6 - End stage renal disease Status: Chronic Assessment and Plan: * as demonstrated by RENAL BIOPSY: * dvanced nephrosclerosis and class IV diabetic glomerulopathy - findings consistent with ischemic injury, vascular disease and diabetes - severe/diffuse interstitial fibrosis and tubular atrophy (~ 90%) * renal biopsy findings likely explains presentation: * volume overload * anasarca * metabolic acidosis * anemia * evaluation since admission already noted: * urine electrolytes non-prerenal * UA with blood and protein * CPK mildly elevated but not enough to affect kidney function * renal ultrasound okay (unable to visualize left kidney) * nephrotic range proteinuria noted (> 10 grams) * negative serological evaluation to date * elevated CRP and ESR noted * no significant improvement with IV diuretic therapy * s/p HD catheter placement on 02/08 * 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 on FLYING TEACHER/HD on 02/08 * s/p daily HD/DUF for clearance and fluid removal * s/p new RIJ HD catheter placed (on 02/18) due previous dysfunctional HD cathether * HD tomorrow * continue M/W/F dialysis schedule as this will be her outpatient schedule (2) Volume overload: Code(s): E87.70 - Fluid overload, unspecified Status: Acute Assessment and Plan: * slow improvement * as noted by clinical exam (anasarca) * multifactorial etiology: * renal dysfunction * nephrotic range proteinuria/nephrotic syndrome * cardiomyopathy * vascular disease * no real improvement with previous IV diuretics on admission * however, still making some urine with diuretics * continue oral bumex of non-dialysis days * continue fluid removal with HD/DUF as tolerated * almost 22L negative since admission (3) Metabolic acidosis: Code(s): E87.20 - Acidosis, unspecified Status: Acute Assessment and Plan: * resolved (4) Cardiomyopathy: Code(s): I42.9 - Cardiomyopathy, unspecified Status: Acute Assessment and Plan: * acute versus chronic? * ischemic versus non-ischemic? * Echo results noted (02/06): * left ventricular systolic function is severely reduced, estimated at 30 - 35% * left ventricular diastolic function is grade I diastolic dysfunction * mild to moderate mitral valve regurgitation * mild to moderate tricuspid valve regurgitation * moderate pulmonary hypertension, estimated pulmonary arterial systolic pressure is 47 mmHg * mild pulmonic regurgitation * Cardiology following * GMDT maybe somewhat limited by her severe renal dysfunction * started low dose lisinopril along with carvedilol * would not be opposed to use of Entresto if BP can tolerate... (5) Hypertension: Qualifiers: Hypertension type: primary hypertension Qualified Code(s): I10 - Essential (primary) hypertension Code(s): I10 - Essential (primary) hypertension Status: Acute Assessment and Plan: * quite elevated on ER presentation (systolic BP > 200) * better control in general * switched hydralazine to lisinopril * continue carvedilol * continue dialysis/fluid removal * follow trend of hemodynamics (6) Anemia: Qualifiers: Anemia type: due to chronic kidney disease Chronic kidney disease stage: unspecified stage Qualified Code(s): N18.9 - Chronic kidney disease, unspecified; D63.1 - Anemia in chronic kidney disease Code(s): D64.9 - Anemia, unspecified Status: Acute Assessment and Plan: * at least partly related to renal dysfunction * anemia studies demonstrate iron deficiency * s/p IV iron * Epogen with HD * follow trend of H/H (7) Renal osteodystrophy: Code(s): N25.0 - Renal osteodystrophy Status: Acute Assessment and Plan: * calcium and phosphorus stable * Vitamin D low -- started on ergocalciferol * PTH in range (8) Diabetes: Qualifiers: Chronic kidney disease stage: unspecified stage Diabetes mellitus complication detail: with chronic kidney disease Diabetes mellitus complication status: with kidney complications Diabetes mellitus half-way insulin use: w [facility] half-way use Diabetes mellitus type: type 2 Qualified Code(s): E11.22 - Type 2 diabetes mellitus with diabetic chronic kidney disease Code(s): E11.9 - Type 2 diabetes mellitus without complications Status: Chronic Assessment and Plan: * follow accu-cheks * glycemic control per hospitalist Not opposed to discharge from renal perspective if otherwise medically stable and outpatient dialysis center/schedule has been finalized Will continue to follow. L Subjective Date/time seen: 02/19/25 10:47 Interval history: Follow-up for newly diagnosed end stage renal disease. Seems to be doing reasonably well; working with therapy at the time of my visit; s/p new tunneled HD catheter placement and dialysis yesterday and tolerated both procedure reasonably well; no other acute complaints voiced when seen. Exam 2 Narrative: General: WD/WN female in NAD Heart: normal S1 and S2; no rub Lungs: decreased at the bases Abdomen: obese but soft, nontender, nondistended, positive bowel sounds Extremities: no cyanosis or clubbing; 2+ edema in RLE and BUEs; s/p left BKA Skin: warm and intact Objective Data Vital Signs Vital Signs: Vital Signs Temp Pulse Resp BP Pulse Ox O2 Del Method O2 Flow Rate 02/19/25 09:18 70 02/19/25 09:17 69 02/19/25 09:17 18 97 Room Air 02/19/25 04:29 97.6 F 67 18 135/62 97 02/19/25 04:00 65 02/19/25 00:00 66 02/18/25 21:03 97.7 F 68 18 154/67 H 98 02/18/25 20:00 65 02/18/25 20:00 Room Air 02/18/25 18:12 98 F 64 15 124/63 96 02/18/25 17:52 64 126/62 02/18/25 17:45 63 117/63 02/18/25 17:30 64 122/66 02/18/25 17:15 64 125/69 02/18/25 17:00 63 107/63 02/18/25 16:45 65 114/65 02/18/25 16:30 64 116/64 02/18/25 16:15 65 115/62 02/18/25 16:03 68 02/18/25 16:00 65 115/62 02/18/25 15:45 68 117/63 02/18/25 15:30 69 113/62 02/18/25 15:00 69 117/61 02/18/25 14:45 68 117/64 02/18/25 14:30 68 142/71 H 02/18/25 14:23 69 150/72 H 02/18/25 14:14 98.1 F 70 15 148/70 H 97 02/18/25 14:14 0 02/18/25 13:35 98.6 F 78 18 148/62 H 96 02/18/25 12:50 97.8 F 73 14 138/65 96 Room Air 02/18/25 12:35 74 14 139/64 95 Room Air 02/18/25 12:19 97.9 F 78 16 133/65 93 Room Air Intake/Output Intake/Output: Intake & Output 02/16/25 02/17/25 02/18/25 02/19/25 23:59 23:59 23:59 23:59 Intake Total 690 1200 170 480 Output Total 3600 3700 Balance -2910 1200 -3530 480 Meds/Results Medications: Active Medications Generic Name Dose Route Start Last Admin Trade Name Freq PRN Reason Stop Dose Admin Acetaminophen 650 mg 02/05/25 20:41 02/18/25 18:23 Acetaminophen 325 Mg Tablet PO 650 mg Q4H PRN Administration Mild Pain (1-5) Or Fever Hydrocodone Bitart/Acetaminophen 1 tab 02/19/25 07:13 02/19/25 09:17 Hydrocodone/Acetaminophen (*Crx) 5-325 Mg Tablet PO 1 tab Q6H PRN Administration Pain Rated 6 or Greater Alteplase, Recombinant 2 mg 02/16/25 09:21 02/16/25 09:30 Alteplase 2 Mg Vial (Cathflo) IV PUSH 2 mg ONCE PRN Administration Line Occlusion Alteplase, Recombinant 2 mg 02/16/25 09:24 02/16/25 09:30 Alteplase 2 Mg Vial (Cathflo) IV PUSH 2 mg ONCE PRN Administration Line Occlusion Bumetanide 2 mg 02/17/25 09:00 02/19/25 09:26 Bumetanide 1 Mg Tablet PO 2 mg SuTuThSa MARGUERITE Administration Buspirone HCl 10 mg 02/10/25 12:43 02/16/25 22:39 Buspirone Hcl 10 Mg Tablet PO 10 mg BID PRN Administration Anxiety Carvedilol 25 mg 02/11/25 21:00 02/19/25 09:18 Carvedilol 25 Mg Tablet PO 25 mg Q12HR MARGUERITE Administration Dextrose 12.5 gm 02/05/25 21:36 Dextrose 50% 25 Gm/50 Ml Syringe IV PUSH PRN PRN Hypoglycemia Protocol Ergocalciferol 1,250 mcg 02/15/25 09:00 02/15/25 09:42 Ergocalciferol (Vitamin D2) 1,250 Mcg (50,000 Units) Capsule PO 1,250 mcg WEEKLY MARGUERITE Administration Escitalopram Oxalate 10 mg 02/14/25 07:00 02/19/25 09:18 Escitalopram Oxalate 10 Mg Tablet PO 10 mg DAILY MARGUERITE Administration Glucagon 1 mg 02/05/25 21:36 Glucagon For Inj 1 Mg Vial IM PRN PRN Hypoglycemia Protocol Glucose 15 gm 02/05/25 21:36 Glucose Oral Gel 15 Gm Of Glucse In 37.5 Gm Tube PO PRN PRN Hypoglycemia Protocol Heparin Sodium (Porcine) 1,000 units 02/11/25 11:47 02/11/25 12:03 Heparin Sodium 1,000 Units/Ml Vial IV PUSH 1,000 units Q1H PRN Administration DIALYSIS Heparin Sodium (Porcine) 5,000 units 02/19/25 09:00 02/19/25 09:26 Heparin Sodium 5,000 Units/Ml Vial SUB-Q 5,000 units Q12HR MARGUERITE Administration Hydroxyzine HCl 25 mg 02/16/25 12:22 02/16/25 13:35 Hydroxyzine Hcl 25 Mg Tablet PO 25 mg Q8H PRN Administration Itching Dextrose 1,000 mls @ 100 mls/hr 02/05/25 21:36 Dextrose 5% 1,000 Ml IVPB PRN PRN Hypoglycemia Protocol Albumin Human 50 mls @ 999 mls/hr 02/09/25 06:57 Albutein IVPB 03/11/25 06:56 Q10M PRN HYPOTENSION Insulin Aspart 4 - 8 units 02/06/25 08:00 02/19/25 09:06 Insulin Aspart (*Bkc) 100 Units/Ml SUB-Q Not Given TIDWM [facility] Protocol Insulin Aspart 2 - 4 units 02/05/25 21:45 02/18/25 21:40 Insulin Aspart (*Bkc) 100 Units/Ml SUB-Q Not Given HS [facility] Protocol Lisinopril 5 mg 02/16/25 09:00 02/19/25 09:18 Lisinopril 5 Mg Tablet PO 5 mg DAILY MARGUERITE Administration Lorazepam 0.5 mg 02/16/25 15:22 02/16/25 15:44 Lorazepam (*Crx) 0.5 Mg Tablet PO 0.5 mg DAILY PRN Administration Anxiety Multi-Ingred Cream/Lotion/Oil/Oint 1 applic 02/13/25 09:00 02/19/25 09:18 Eucerin Cream 120 Gm Jar TOPICAL Not Given DAILY MARGUERITE Ondansetron HCl 4 mg 02/05/25 20:41 Ondansetron Inj 4 Mg/2 Ml Vial IV PUSH Q6H PRN Nausea And Vomiting Pantoprazole Sodium 40 mg 02/14/25 09:00 02/19/25 09:18 Pantoprazole 40 Mg Tablet PO 40 mg DAILY MARGUERITE Administration Radiology Results: ITS Impressions Renal Ultrasound 02/06/25 17:09 IMPRESSION: Right kidney is unremarkable. Left kidney is not visualized. Venous Doppler Study 02/10/25 17:43 Impression: Negative for DVT. Renal Biopsy CT 02/13/25 10:19 IMPRESSION: 1. Successful CT-guided random left kidney biopsy. Chest X-Ray 02/18/25 12:30 Impression: CHF Central Venous Line 02/18/25 12:38 IMPRESSION: 1. Fluoroscopy utilized during dialysis catheter replacement. See procedure note for further detail. Labs Labs: Laboratory Tests 02/19/25 04:22 02/19/25 04:22 Calcium 8.4 Phosphorus 4.5 Magnesium 2.2 Total Bilirubin 0.5 AST 17 ALT 9 Alkaline Phosphatase 114 Total Protein 6.3 Albumin 3.1 L
--- NOTE | 2025-02-19 13:33 | WPDANESPN ---
Anes - Prog Note Post-Op Date/Time: 02/19/25 13:33 Cardiovascular status: normal Respiratory status: normal Airway patency: baseline Mental status: baseline Post-Op hydration status: normal Vital Signs: Last Vital Signs Temp 36.6 C 02/19/25 13:10 Pulse 73 02/19/25 13:10 Resp 14 02/19/25 13:10 BP 131/54 L 02/19/25 13:10 Pulse Ox 99 02/19/25 13:10 O2 Del Method Room Air 02/19/25 09:17 O2 Flow Rate 0 02/18/25 14:14 FiO2 0 02/18/25 14:14 Pain Score (VAS): 1 I/O: Intake & Output 02/18/25 02/19/25 02/19/25 23:59 07:59 15:59 Intake Total 240 330 Output Total 2900 Balance -2900 240 330 Laboratory Tests 02/19/25 04:22 02/19/25 04:22 02/14/25 02/18/25 02/18/25 18:59 18:30 21:03 WBC RBC Hgb Hct MCV MCH MCHC RDW Plt Count MPV Immature Gran % (Auto) Neut % (Auto) Lymph % (Auto) [place] % (Auto) Eos % (Auto) Baso % (Auto) Lymph # (Auto) [place] # (Auto) Eos # (Auto) Baso # (Auto) Abs Immat Gran (auto) Absolute Neuts (auto) Absolute Nucleated RBC Band Neutrophils % Nucleated RBC % Platelet Estimate Clumped Platelets Large Platelets Hypochromasia Poikilocytosis Anisocytosis Microcytosis Target Cells Ovalocytes Schistocytes Sodium Potassium Chloride Carbon Dioxide Anion Gap BUN Creatinine Estim Creat Clear Calc Estimated GFR Glucose POC Capillary Glucose 132 H 162 H Calcium Phosphorus Magnesium Total Bilirubin AST ALT Alkaline Phosphatase Total Protein Albumin Urine Immunofixation Comment 02/19/25 02/19/25 02/19/25 04:22 07:26 11:13 WBC 7.8 RBC 3.89 L Hgb 9.2 L Hct 31.5 L MCV 81.0 MCH 23.7 L MCHC 29.2 L RDW 21.2 H Plt Count 442 H MPV 9.6 Immature Gran % (Auto) 0.4 Neut % (Auto) 69.2 Lymph % (Auto) 10.6 L [place] % (Auto) 15.9 H Eos % (Auto) 3.4 Baso % (Auto) 0.5 Lymph # (Auto) 0.83 L [place] # (Auto) 1.3 H Eos # (Auto) 0.3 Baso # (Auto) 0.0 Abs Immat Gran (auto) 0.03 Absolute Neuts (auto) 5.4 Absolute Nucleated RBC 0.000 Band Neutrophils % Not Reportable Nucleated RBC % 0.0 Platelet Estimate Increased Clumped Platelets Present Large Platelets Present Hypochromasia 1+ Poikilocytosis 1+ Anisocytosis 1+ Microcytosis 1+ Target Cells Occasional Ovalocytes 1+ Schistocytes Rare Sodium 130 L Potassium 3.7 Chloride 95 L Carbon Dioxide 30 Anion Gap 5 BUN 23 H D Creatinine 3.96 H Estim Creat Clear Calc 20 Estimated GFR 12 L Glucose 126 H POC Capillary Glucose 103 163 H Calcium 8.4 Phosphorus 4.5 Magnesium 2.2 Total Bilirubin 0.5 AST 17 ALT 9 Alkaline Phosphatase 114 Total Protein 6.3 Albumin 3.1 L Urine Immunofixation Post-procedural complaints: none Patient Feedback: Patient satisfied with anesthetic care.
--- NOTE | 2025-02-19 16:37 | PM.IMPN ---
Progress Note: A&P Assessment and Plan (1) CHF (congestive heart failure): Qualifiers: Heart failure type: unspecified Heart failure chronicity: acute Qualified Code(s): I50.9 - Heart failure, unspecified Code(s): I50.9 - Heart failure, unspecified Status: Acute Assessment and Plan: Patient originally presented for primary complaint of shortness of breath and right lower extremity swelling (history of left BKA).? CXR showed mild CHF.?Fluid overload due to acute renal failure/ESRD and new onset systolic and diastolic CHF BNP >30K on admission on 02/05 Echo showing EF 30-35%, Grade I diastolic dysfunction, mild-mod MR and TR, moderate pHTN. Started Bumex but now on dialysis to control fluid status. Bumex oral on non-dialysis days. HD to control fluid status. Continue GDMT with Coreg, lisinopril. Okay to stop tele (2) Acute kidney injury: Code(s): N17.9 - Acute kidney failure, unspecified Status: Acute Assessment and Plan: Admitted for GARRISON. She has underlying CKD (last values were from 2022) HD cath placed 02/08. Started on HD. 02/12 Kidney biopsy shows chronic injury consistent with a combination of vascular disease, ischemic injury, and diabetic nephropathy. There is no evidence of a superimposed active disease process. 02/13 Renal US: Right kidney is unremarkable. Left kidney is not visualized RUE edema and poor flow from dialysis catheter so HD catheter changed on 02/18 dye and chemical coordinator has arranged for: Dialysis center was set up for [facility] but now changed to [facility] in [facility] on [facility]. After 03/07/2025, her time will change to 10:30 a.m. Pt concerned about transportation to and from dialysis. Care coordination working with family about this. HD planned for tomorrow. Probably discharge tomorrow if transportation to HD arranged. Follow. (3) Diabetes: Qualifiers: Diabetes mellitus type: type 2 Diabetes mellitus shelter insulin use: without shelter use Diabetes mellitus complication status: with kidney complications Diabetes mellitus complication detail: with chronic kidney disease Chronic kidney disease stage: unspecified stage Qualified Code(s): E11.22 - Type 2 diabetes mellitus with diabetic chronic kidney disease Code(s): E11.9 - Type 2 diabetes mellitus without complications Status: Chronic Assessment and Plan: A1c 8.6% on 02/05/2025. She has been off of her medications for the past 2 years since 2022.? She has not followed with any providers since 2022.? Diabetes complicated by previous diabetic foot infection requiring a left BKA in 2022 and right great toe amp. The patient's blood glucose was reviewed on 02/19 Glucose remains well controlled. Continue AccuCheks covering with sliding scale. Hypoglycemia protocol available as needed. Continue to follow programmer operator numerical control and manager metal consulted (4) Hypertension: Qualifiers: Hypertension type: primary hypertension Qualified Code(s): I10 - Essential (primary) hypertension Code(s): I10 - Essential (primary) hypertension Status: Acute Assessment and Plan: Patient's blood pressure was reviewed on 02/19 BP was markedly elevated on admission felt related to fluid overload. Blood pressure better controlled. Will continue to monitor (5) Anemia: Qualifiers: Anemia type: due to chronic kidney disease Chronic kidney disease stage: unspecified stage Qualified Code(s): N18.9 - Chronic kidney disease, unspecified; D63.1 - Anemia in chronic kidney disease Code(s): D64.9 - Anemia, unspecified Status: Acute Assessment and Plan: Hgb in 2022 was in the 7 range. Hgb 10.6 on admission but now mostly in 8-9 range. 02/05: Ferritin 17, Iron 29, TIBC 400, %Sat 7. B12/folate normal. Anemia likely secondary to iron deficiency and probably CKD. Treated with venofer 400mg x1 02/06. Repeat irons studies probably a lab error Receiving intermittent Epogen Monitor Hgb and transfuse if <7 to a stable Hgb. Check stool guaiac (6) Anxiety: Code(s): F41.9 - Anxiety disorder, unspecified Status: Acute Assessment and Plan: Pt having anxiety since being in the hospital. Buspirone 10mg BID PRN ordered on 02/12 Hydroxyzine and Ativan available prn (7) Elevated TSH: Code(s): R79.89 - Other specified abnormal findings of blood chemistry Status: Acute Assessment and Plan: TSH 6.3 with normal FT4. Not on Synthroid. Defer to PCP to repeat thyroid panel when she is well. Plan DVT Prophylaxis - SCDs, Heparin Code status - full Subjective Date/time seen: 02/19/25 16:37 Interval history: 44yo female with PMH of diabetes, left BKA, CKD, depression, anxiety/panic disorder and DKA who presents on 02/05 with shortness of breath. No problems overnight. No chest pain or shortness of breath. Hemodialysis went well yesterday evening. Still having the right-sided neck pain from the catheter but this is better. Exam Narrative: AF 97.8 131/54 73 14 99% ra Gen - NARD Chest - bibasilar crackles. Right upper chest tunneled IJ dialysis catheter CV - RRR S1/S2. Tele showing no significant dysrhythmias Abs - soft, obese, NT Ext - left BKA. right great toe amp. Trace RLE edema. Psych - nml mood Skin - warm and dry Objective Data Vital Signs Vital Signs: Vital Signs - 24 hr 02/18/25 16:45 02/18/25 17:00 02/18/25 17:15 Temperature Pulse Rate 65 63 64 Respiratory Rate Blood Pressure 114/65 107/63 125/69 Pulse Oximetry Oxygen Delivery 02/18/25 17:30 02/18/25 17:45 02/18/25 17:52 Temperature Pulse Rate 64 63 64 Respiratory Rate Blood Pressure 122/66 117/63 126/62 Pulse Oximetry Oxygen Delivery 02/18/25 18:12 02/18/25 20:00 02/18/25 20:00 Temperature 98 F Pulse Rate 64 65 Respiratory Rate 15 Blood Pressure 124/63 Pulse Oximetry 96 Oxygen Delivery Room Air 02/18/25 21:03 02/19/25 00:00 02/19/25 04:00 Temperature 97.7 F Pulse Rate 68 66 65 Respiratory Rate 18 Blood Pressure 154/67 H Pulse Oximetry 98 Oxygen Delivery 02/19/25 04:29 02/19/25 09:17 02/19/25 09:17 Temperature 97.6 F Pulse Rate 67 69 Respiratory Rate 18 18 Blood Pressure 135/62 Pulse Oximetry 97 97 Oxygen Delivery Room Air 02/19/25 09:18 02/19/25 12:00 02/19/25 13:10 Temperature 97.8 F Pulse Rate 70 71 73 Respiratory Rate 14 Blood Pressure 131/54 L Pulse Oximetry 99 Oxygen Delivery Intake/Output Intake/Output: Intake & Output 02/16/25 02/17/25 02/18/25 02/19/25 23:59 23:59 23:59 23:59 Intake Total 690 1200 170 570 Output Total 3600 3700 Balance -2910 1200 -3530 570 Meds/Results Medications: Active Medications Generic Name Dose Route Start Last Admin Trade Name Freq PRN Reason Stop Dose Admin Acetaminophen 650 mg 02/05/25 20:41 02/18/25 18:23 Acetaminophen 325 Mg Tablet PO 650 mg Q4H PRN Administration Mild Pain (1-5) Or Fever Hydrocodone Bitart/Acetaminophen 1 tab 02/19/25 07:13 02/19/25 09:17 Hydrocodone/Acetaminophen (*Crx) 5-325 Mg Tablet PO 1 tab Q6H PRN Administration Pain Rated 6 or Greater Alteplase, Recombinant 2 mg 02/16/25 09:21 02/16/25 09:30 Alteplase 2 Mg Vial (Cathflo) IV PUSH 2 mg ONCE PRN Administration Line Occlusion Alteplase, Recombinant 2 mg 02/16/25 09:24 02/16/25 09:30 Alteplase 2 Mg Vial (Cathflo) IV PUSH 2 mg ONCE PRN Administration Line Occlusion Bumetanide 2 mg 02/17/25 09:00 02/19/25 09:26 Bumetanide 1 Mg Tablet PO 2 mg SuTuThSa MARGUERITE Administration Buspirone HCl 10 mg 02/10/25 12:43 02/16/25 22:39 Buspirone Hcl 10 Mg Tablet PO 10 mg BID PRN Administration Anxiety Carvedilol 25 mg 02/11/25 21:00 02/19/25 09:18 Carvedilol 25 Mg Tablet PO 25 mg Q12HR MARGUERITE Administration Dextrose 12.5 gm 02/05/25 21:36 Dextrose 50% 25 Gm/50 Ml Syringe IV PUSH PRN PRN Hypoglycemia Protocol Ergocalciferol 1,250 mcg 02/15/25 09:00 02/15/25 09:42 Ergocalciferol (Vitamin D2) 1,250 Mcg (50,000 Units) Capsule PO 1,250 mcg WEEKLY MARGUERITE Administration Escitalopram Oxalate 10 mg 02/14/25 07:00 02/19/25 09:18 Escitalopram Oxalate 10 Mg Tablet PO 10 mg DAILY MARGUERITE Administration Glucagon 1 mg 02/05/25 21:36 Glucagon For Inj 1 Mg Vial IM PRN PRN Hypoglycemia Protocol Glucose 15 gm 02/05/25 21:36 Glucose Oral Gel 15 Gm Of Glucse In 37.5 Gm Tube PO PRN PRN Hypoglycemia Protocol Heparin Sodium (Porcine) 1,000 units 02/11/25 11:47 02/11/25 12:03 Heparin Sodium 1,000 Units/Ml Vial IV PUSH 1,000 units Q1H PRN Administration DIALYSIS Heparin Sodium (Porcine) 5,000 units 02/19/25 09:00 02/19/25 09:26 Heparin Sodium 5,000 Units/Ml Vial SUB-Q 5,000 units Q12HR MARGUERITE Administration Hydroxyzine HCl 25 mg 02/16/25 12:22 02/16/25 13:35 Hydroxyzine Hcl 25 Mg Tablet PO 25 mg Q8H PRN Administration Itching Dextrose 1,000 mls @ 100 mls/hr 02/05/25 21:36 Dextrose 5% 1,000 Ml IVPB PRN PRN Hypoglycemia Protocol Albumin Human 50 mls @ 999 mls/hr 02/09/25 06:57 Albutein IVPB 03/11/25 06:56 Q10M PRN HYPOTENSION Insulin Aspart 4 - 8 units 02/06/25 08:00 02/19/25 11:55 Insulin Aspart (*Bkc) 100 Units/Ml SUB-Q Not Given TIDWM MARGUERITE Protocol Insulin Aspart 2 - 4 units 02/05/25 21:45 02/18/25 21:40 Insulin Aspart (*Bkc) 100 Units/Ml SUB-Q Not Given HS MARGUERITE Protocol Lisinopril 5 mg 02/16/25 09:00 02/19/25 09:18 Lisinopril 5 Mg Tablet PO 5 mg DAILY MARGUERITE Administration Lorazepam 0.5 mg 02/16/25 15:22 02/16/25 15:44 Lorazepam (*Crx) 0.5 Mg Tablet PO 0.5 mg DAILY PRN Administration Anxiety Multi-Ingred Cream/Lotion/Oil/Oint 1 applic 02/13/25 09:00 02/19/25 09:18 Eucerin Cream 120 Gm Jar TOPICAL Not Given DAILY MARGUERITE Ondansetron HCl 4 mg 02/05/25 20:41 Ondansetron Inj 4 Mg/2 Ml Vial IV PUSH Q6H PRN Nausea And Vomiting Pantoprazole Sodium 40 mg 02/14/25 09:00 02/19/25 09:18 Pantoprazole 40 Mg Tablet PO 40 mg DAILY MARGUERITE Administration Radiology Results: ITS Impressions Renal Ultrasound 02/06/25 17:09 IMPRESSION: Right kidney is unremarkable. Left kidney is not visualized. Venous Doppler Study 02/10/25 17:43 Impression: Negative for DVT. Renal Biopsy CT 02/13/25 10:19 IMPRESSION: 1. Successful CT-guided random left kidney biopsy. Chest X-Ray 02/18/25 12:30 Impression: CHF Central Venous Line 02/18/25 12:38 IMPRESSION: 1. Fluoroscopy utilized during dialysis catheter replacement. See procedure note for further detail. Labs Labs: Laboratory Results - last 24 hr 02/18/25 02/18/25 02/19/25 18:30 21:03 04:22 WBC 7.8 RBC 3.89 L Hgb 9.2 L Hct 31.5 L MCV 81.0 MCH 23.7 L MCHC 29.2 L RDW 21.2 H Plt Count 442 H MPV 9.6 Immature Gran % (Auto) 0.4 Neut % (Auto) 69.2 Lymph % (Auto) 10.6 L [place] % (Auto) 15.9 H Eos % (Auto) 3.4 Baso % (Auto) 0.5 Lymph # (Auto) 0.83 L [place] # (Auto) 1.3 H Eos # (Auto) 0.3 Baso # (Auto) 0.0 Abs Immat Gran (auto) 0.03 Absolute Neuts (auto) 5.4 Absolute Nucleated RBC 0.000 Band Neutrophils % Not Reportable Nucleated RBC % 0.0 Platelet Estimate Increased Clumped Platelets Present Large Platelets Present Hypochromasia 1+ Poikilocytosis 1+ Anisocytosis 1+ Microcytosis 1+ Target Cells Occasional Ovalocytes 1+ Schistocytes Rare Sodium 130 L Potassium 3.7 Chloride 95 L Carbon Dioxide 30 Anion Gap 5 BUN 23 H D Creatinine 3.96 H Estim Creat Clear Calc 20 Estimated GFR 12 L Glucose 126 H POC Capillary Glucose 132 H 162 H Calcium 8.4 Phosphorus 4.5 Magnesium 2.2 Total Bilirubin 0.5 AST 17 ALT 9 Alkaline Phosphatase 114 Total Protein 6.3 Albumin 3.1 L 02/19/25 02/19/25 02/19/25 07:26 11:13 16:29 WBC RBC Hgb Hct MCV MCH MCHC RDW Plt Count MPV Immature Gran % (Auto) Neut % (Auto) Lymph % (Auto) [place] % (Auto) Eos % (Auto) Baso % (Auto) Lymph # (Auto) [place] # (Auto) Eos # (Auto) Baso # (Auto) Abs Immat Gran (auto) Absolute Neuts (auto) Absolute Nucleated RBC Band Neutrophils % Nucleated RBC % Platelet Estimate Clumped Platelets Large Platelets Hypochromasia Poikilocytosis Anisocytosis Microcytosis Target Cells Ovalocytes Schistocytes Sodium Potassium Chloride Carbon Dioxide Anion Gap BUN Creatinine Estim Creat Clear Calc Estimated GFR Glucose POC Capillary Glucose 103 163 H 177 H Calcium Phosphorus Magnesium Total Bilirubin AST ALT Alkaline Phosphatase Total Protein Albumin
[2025-02-20] VITALS (22 sets, daily range): BP systolic 131–172; BP diastolic 52–78; PULSE 68–77; RESP 12–17; TEMP 36.4–37.3; O2SAT 96–99
[2025-02-20 05:05] LABS: Hematocrit 29.8 % (37.0-47.0); Hemoglobin 8.9 g/dL (12.0-15.0); Immature Granulocyte Percent A 0.3 % (0-0.5); Lymphocytes Absolute Auto 1.55 K/mm3 (0.9-3.2); Mean Corpuscular HGB Conc 29.9 g/dl (32-36); Mean Corpuscular Hemoglobin 23.7 pg (26-34); Mean Corpuscular Volume 79.5 fl (80-100); Nucleated Red Blood Cells Absolute Auto 0.020 K/mm3 (0.0-0.012); Nucleated Red Blood Cells Perc 0.2 % (0.0-0.2); Platelet Count Result 482 k/mm3 (150-375); Red Blood Count 3.75 M/mm3 (4.2-5.4); White Blood Count 8.8 K/mm3 (4.5-10.0)
[2025-02-20 05:24] LABS: Alanine Aminotransferase 7 U/L (6-35); Albumin Level 3.1 g/dL (3.5-5.1); Alkaline Phosphatase 104 U/L (38-126); Anion Gap 8 mmol/L (4-12); Aspartate Amino Transferase 20 U/L (14-36); Bilirubin,Total 0.4 mg/dL (0.2-1.3); Blood Urea Nitrogen 32 mg/dL (7-17); Calcium 8.0 mg/dL (8.4-10.2); Carbon Dioxide 27 mmol/L (22-30); Chloride 95 mmol/L (98-107); Estimated CRCL calculation 16 ml/min; Estimated Glomerular Filt Rate 10; Glucose 99 mg/dL (65-110); Potassium 3.7 mmol/L (3.4-5.0); Sodium 130 mmol/L (137-145); Total Protein 6.1 g/dL (6.3-8.2)
[2025-02-20 05:30] LABS: Anisocytosis 1+; Burr Cells Occasional; Ovalocytes Occasional; Target Cells 1+
[2025-02-20 05:31] LABS: Schistocytes Rare
[2025-02-20] MEDS: ESCITALOPRAM OXALATE 10 MG TABLET PO (08:19)
[2025-02-20] MEDS: HYDROcodone/acetaminophen (*CRX) 5-325 MG TABLET 1 TAB PO (11:20)
[2025-02-20] MEDS: EPOETIN ALFA-EPBX 10,000 UNITS/ML VIAL 10000 UNITS IV PUSH (11:26)
--- NOTE | 2025-02-20 12:14 | P.DS_ITS ---
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 She had been off all medications and out of care for two years. Hospital Course Initial Presentation: Patient presented to the ER with [id number] shortness of breath, anasarca, and right lower extremity swelling. She was found to be hypertensive (BP >200/100), hypoxic, and in acute renal failure (Cr 10.26, BUN 78, GFR 4). Labs showed severe metabolic acidosis (CO? <5), hyperkalemia, anemia, and nephrotic- range proteinuria. CXR showed mild CHF; BNP >30,000. Cardiac Evaluation: Echocardiogram revealed severely reduced LV systolic function (EF 30?35%), grade I diastolic dysfunction, mild-moderate MR/TR, and moderate pulmonary hypertension. No prior echo for comparison. Cardiology recommended IV diuresis, GDMT as tolerated, and outpatient ischemic evaluation. Renal Evaluation: Nephrology noted unclear chronicity of renal failure, with prior Cr 1.5 in 2022. Urine studies were non-prerenal; UA showed blood and protein. Renal US: right kidney unremarkable, left kidney not visualized. Diuretic response was poor; patient developed worsening anasarca and metabolic derangements. Renal biopsy (02/12) confirmed advanced nephrosclerosis and class IV diabetic glomerulopathy with ?90% interstitial fibrosis and tubular atrophy, consistent with ESRD. Volume Management: Initial management with IV Bumex and later Lasix drip was unsuccessful. Patient required placement of a tunneled right subclavian HD catheter (02/08) and initiation of hemodialysis. Due to catheter dysfunction and right arm swelling, a right internal jugular tunneled HD catheter was placed (02/18), and the subclavian catheter was removed. Diabetes Management: A1c 8.6% on admission. Blood glucose controlled with sliding scale insulin and correctional regimen. diabetes educator and dietitian consulted. Hypertension: Markedly elevated on admission, attributed to volume overload and medication nonadherence. Treated with carvedilol (titrated up to 25 mg BID), hydralazine (later switched to lisinopril as tolerated), and fluid removal with HD. Anemia: Chronic anemia (Hgb 7?10 g/dL), iron deficiency confirmed. Treated with IV iron(800mg IV ) and Epogen with HD. No transfusions required. Renal Osteodystrophy: Vitamin D deficiency treated with ergocalciferol. Calcium and phosphorus stable. PTH in range. Other Issues: * Anxiety managed with buspirone, hydroxyzine, and PRN lorazepam. * No evidence of DVT on duplex for right upper extremity swelling. * No infectious complications of dialysis access. * Discharge planning included coordination for outpatient HD at [facility] ([facility] schedule), with social work assisting with transportation. Discharge Medications * Carvedilol?25 mg PO BID (with holding parameters) * Lisinopril?(dose per nephrology/cardiology, as tolerated) * Bumetanide?PO on non-dialysis days * Insulin?per sliding scale and correctional regimen * Epogen?with HD * Ergocalciferol?(Vitamin D) as prescribed * Buspirone?10 mg BID PRN for anxiety * Hydroxyzine?and?lorazepam?PRN for anxiety * amlodipine 5mg daily * Other home medications?as appropriate and reviewed Discharge Condition * Afebrile, hemodynamically stable * Tolerating diet, ambulating with assistance * No chest pain, shortness of breath, or acute complaints * Edema improved but still present * HD access functioning well Discharge Instructions * Dialysis:?Outpatient HD at [facility] schedule. First session scheduled; transportation arranged. * Medications:?Take as prescribed. Bring all medications to dialysis and follow up with nephrology for medication adjustments. * Diet:?Renal diet as instructed by dietitian. * Fluid restriction:?As advised by nephrology. * Weight monitoring:?Daily weights at home if possible. * Wound care:?Monitor HD catheter site for signs of infection (redness, swelling, drainage). * Follow-up appointments: * Nephrology: as instructed * Cardiology: as instructed * Primary care: as instructed * diabetes educator/dietitian as arranged * Emergency:?Return to ED for chest pain, severe shortness of breath, fever, rigors, bleeding, or signs of catheter infection. Time Spent with Patient Time attestation: Total time spent providing and/or coordinating discharge services: DS: Data Data Completed and Pending Completed studies during hospitalization: Pending at discharge 02/13/25 09:38 Surgical [PTH] Routine Labs on day of discharge: Labs from last 24 hours 02/20/25 02/20/25 02/19/25 07:24 04:45 19:40 WBC 8.8 RBC 3.75 L Hgb 8.9 L Hct 29.8 L MCV 79.5 L MCH 23.7 L MCHC 29.9 L RDW 21.0 H Plt Count 482 H MPV 9.1 Immature Gran % (Auto) 0.3 Neut % (Auto) 60.4 Lymph % (Auto) 17.7 L [place] % (Auto) 16.8 H Eos % (Auto) 4.1 Baso % (Auto) 0.7 Lymph # (Auto) 1.55 [place] # (Auto) 1.5 H Eos # (Auto) 0.4 H Baso # (Auto) 0.1 Abs Immat Gran (auto) 0.03 Absolute Neuts (auto) 5.3 Absolute Nucleated RBC 0.020 H Band Neutrophils % Not Reportable Nucleated RBC % 0.2 Platelet Estimate Increased Anisocytosis 1+ Target Cells 1+ Ovalocytes Occasional [place] Cells Occasional Schistocytes Rare Sodium 130 L Potassium 3.7 Chloride 95 L Carbon Dioxide 27 Anion Gap 8 BUN 32 H Creatinine 4.94 H Estim Creat Clear Calc 16 Estimated GFR 10 L Glucose 99 POC Capillary Glucose 104 148 H Calcium 8.0 L Total Bilirubin 0.4 AST 20 ALT 7 Alkaline Phosphatase 104 Total Protein 6.1 L Albumin 3.1 L 02/19/25 16:29 WBC RBC Hgb Hct MCV MCH MCHC RDW Plt Count MPV Immature Gran % (Auto) Neut % (Auto) Lymph % (Auto) [place] % (Auto) Eos % (Auto) Baso % (Auto) Lymph # (Auto) [place] # (Auto) Eos # (Auto) Baso # (Auto) Abs Immat Gran (auto) Absolute Neuts (auto) Absolute Nucleated RBC Band Neutrophils % Nucleated RBC % Platelet Estimate Anisocytosis Target Cells Ovalocytes Greg Cells Schistocytes Sodium Potassium Chloride Carbon Dioxide Anion Gap BUN Creatinine Estim Creat Clear Calc Estimated GFR Glucose POC Capillary Glucose 177 H Calcium Total Bilirubin AST ALT Alkaline Phosphatase Total Protein Albumin Discharge Plan Discharge Attending physician on discharge: Arlen Olivares Consulting providers: Aysha Shaikh; Arlen Olivares; Della Villatoro; Nolan Johnson Discharging Clinician: Arlen Olivares Anticipated Discharge Date/Time: 02/20/25 12:00 Patient Disposition: Home with Home Health Service Activity: no shower and other - see discharge instructions Discharge Instructions: 1. Follow-up with your primary care provider to continue to monitor your iron status, sleep apnea work-up, and stool softener. Your scheduled PCP appointment is located at [place] [address], P: [phone] on February 26, 2025 @ 2:00PM. [facility] is willing to provide services once your appointment with PCP is completed. 2. Also make sure to follow-up with cardiology for an outpatient stress test and life vest management as discussed. 3. Care Coordination: Patient scheduled with [facility] starting 02/22/25. Chair time M-W- @ 3:00PM. Starting March 07, 2025 @ 10:30AM Chair time will be , and Tuesday : [facility] ? ([phone] Patient Instructions: Antibiotic Form Patient Language: Polish Stand Alone Forms: General Discharge Information Follow-up/Referrals: Nolan Johnson MD [Physician, Cardiology] Referral Note: Follow-up with cardiology as instructed Della Villatroo MD [Physician, Nephrology] Referral Note: Follow with Nephrology as instructed PHYSICIAN,INSURANCE VERIFICATION CLERK [Primary Care Provider, Internal Medicine] Referral Note: Follow it is PCP in 3-5 days Discharge Medications: New ergocalciferol (vitamin D2) 1,250 mcg (50,000 unit) Capsule 1,250 mcg PO WEEKLY 30 Days Qty: 5 0RF lisinopril 5 mg Tablet 5 mg PO DAILY Qty: 30 1RF amlodipine 5 mg tablet 5 mg PO DAILY 30 Days Qty: 30 0RF acetaminophen 325 mg Tablet 650 mg PO Q4H PRN (Reason: Mild Pain (1-3) Or Fever) Qty: 30 0RF buspirone 10 mg Tablet 10 mg PO BID PRN (Reason: Anxiety) Qty: 60 0RF carvedilol [Coreg] 25 mg Tablet 25 mg PO Q12HR 30 Days Qty: 60 0RF bumetanide 1 mg Tablet 2 mg PO SuTuThSa 30 Days Qty: 36 0RF Continued pantoprazole 40 mg Tablet,Delayed Release (Dr/Ec) 40 mg PO Q12HR Qty: 60 0RF hydralazine 50 mg Tablet 50 mg PO Q6HR Qty: 120 0RF escitalopram oxalate 10 mg Tablet 10 mg PO DAILY Qty: 30 0RF Levemir FlexPen 100 unit/mL (3 mL) insulin pen 20 unit subcut HS 30 Days Qty: 15 0RF Discontinued cyclobenzaprine 10 mg Tablet 5 mg PO Q8H PRN (Reason: Muscle Spasm) Qty: 30 0RF carvedilol [Coreg] 3.125 mg Tablet 3.125 mg PO Q12HR Qty: 60 0RF Date of admission: 02/07/25 10:53 Primary Care Provider: PHYSICIAN,INSURANCE VERIFICATION CLERK Admitting Provider: Jairo Meyer Attending physician on admission: Jairo Meyer Condition: Improved
--- NOTE | 2025-02-20 12:15 | P.PNNP_ITS ---
Progress Note: A&P Assessment and Plan (1) End stage renal disease: Code(s): N18.6 - End stage renal disease Status: Chronic Assessment and Plan: * as demonstrated by RENAL BIOPSY: * dvanced nephrosclerosis and class IV diabetic glomerulopathy - findings consistent with ischemic injury, vascular disease and diabetes - severe/diffuse interstitial fibrosis and tubular atrophy (~ 90%) * renal biopsy findings likely explains presentation: * volume overload * anasarca * metabolic acidosis * anemia * evaluation since admission already noted: * urine electrolytes non-prerenal * UA with blood and protein * CPK mildly elevated but not enough to affect kidney function * renal ultrasound okay (unable to visualize left kidney) * nephrotic range proteinuria noted (> 10 grams) * negative serological evaluation to date * elevated CRP and ESR noted * no significant improvement with IV diuretic therapy * s/p HD catheter placement on 02/08 * 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/HD on 02/08 * s/p daily HD/DUF for clearance and fluid removal * s/p new RIJ HD catheter placed (on 02/18) due previous dysfunctional HD cathether * HD today * continue M/W/F dialysis schedule as this will be her outpatient schedule (2) Volume overload: Code(s): E87.70 - Fluid overload, unspecified Status: Acute Assessment and Plan: * slow improvement * as noted by clinical exam (anasarca) * multifactorial etiology: * renal dysfunction * nephrotic range proteinuria/nephrotic syndrome * cardiomyopathy * vascular disease * no real improvement with previous IV diuretics on admission * however, still making some urine with diuretics * continue oral bumex of non-dialysis days * continue fluid removal with HD/DUF as tolerated * almost 22L negative since admission (3) Metabolic acidosis: Code(s): E87.20 - Acidosis, unspecified Status: Acute Assessment and Plan: * resolved (4) Cardiomyopathy: Code(s): I42.9 - Cardiomyopathy, unspecified Status: Acute Assessment and Plan: * acute versus chronic? * ischemic versus non-ischemic? * Echo results noted (02/06): * left ventricular systolic function is severely reduced, estimated at 30 - 35% * left ventricular diastolic function is grade I diastolic dysfunction * mild to moderate mitral valve regurgitation * mild to moderate tricuspid valve regurgitation * moderate pulmonary hypertension, estimated pulmonary arterial systolic pressure is 47 mmHg * mild pulmonic regurgitation * Cardiology following * GMDT maybe somewhat limited by her severe renal dysfunction * started low dose lisinopril along with carvedilol * would not be opposed to use of Entresto if BP can tolerate... (5) Hypertension: Qualifiers: Hypertension type: primary hypertension Qualified Code(s): I10 - Essential (primary) hypertension Code(s): I10 - Essential (primary) hypertension Status: Acute Assessment and Plan: * quite elevated on ER presentation (systolic BP > 200) * better control in general * switched hydralazine to lisinopril * continue carvedilol * continue dialysis/fluid removal * follow trend of hemodynamics (6) Anemia: Qualifiers: Anemia type: due to chronic kidney disease Chronic kidney disease stage: unspecified stage Qualified Code(s): N18.9 - Chronic kidney disease, unspecified; D63.1 - Anemia in chronic kidney disease Code(s): D64.9 - Anemia, unspecified Status: Acute Assessment and Plan: * at least partly related to renal dysfunction * anemia studies demonstrate iron deficiency * s/p IV iron * Epogen with HD * follow trend of H/H (7) Renal osteodystrophy: Code(s): N25.0 - Renal osteodystrophy Status: Acute Assessment and Plan: * calcium and phosphorus stable * Vitamin D low -- started on ergocalciferol * PTH in range (8) Diabetes: Qualifiers: Diabetes mellitus type: type 2 Diabetes mellitus halfway insulin use: without halfway use Diabetes mellitus complication status: with kidney complications Diabetes mellitus complication detail: with chronic kidney disease Chronic kidney disease stage: unspecified stage Qualified Code(s): E 11.22 - Type 2 diabetes mellitus with diabetic chronic kidney disease Code(s): E11.9 - Type 2 diabetes mellitus without complications Status: Chronic Assessment and Plan: * follow accu-cheks * glycemic control per hospitalist Not opposed to discharge from renal perspective if otherwise medically stable and outpatient dialysis center/schedule has been finalized Will continue to follow. L Subjective Date/time seen: 02/20/25 12:15 Interval history: Follow-up for newly diagnosed end stage renal disease. Tolerating dialysis treatment at the time of my visit (seen on HD at 12:05pm); no apparent distress noted; blood pressure doing reasonbly well; no other issues/events overnight or earlier this morning. Exam 2 Narrative: General: WD/WN female in NAD Heart: normal S1 and S2; no rub Lungs: decreased at the bases Abdomen: obese but soft, nontender, nondistended, positive bowel sounds Extremities: no cyanosis or clubbing; trace - 1+ edema in RLE and BUEs; s/p left BKA Skin: no rash or nodules Objective Data Vital Signs Vital Signs: Vital Signs Temp Pulse Resp BP Pulse Ox O2 Del Method 02/20/25 12:00 70 131/52 L 02/20/25 11:45 71 144/69 H 02/20/25 11:30 71 157/74 H 02/20/25 11:15 73 160/77 H 02/20/25 11:00 73 172/78 H 02/20/25 10:45 73 169/76 H 02/20/25 10:30 72 169/74 H 02/20/25 10:15 72 163/74 H 02/20/25 10:00 71 154/74 H 02/20/25 09:45 71 144/71 H 02/20/25 09:30 71 142/68 H 02/20/25 09:15 73 134/68 02/20/25 09:00 72 149/72 H 02/20/25 08:45 73 136/70 02/20/25 08:34 98.6 F 75 16 138/69 98 02/20/25 08:24 Room Air 02/20/25 04:50 97.5 F L 74 17 134/56 L 96 02/19/25 20:34 75 02/19/25 20:00 Room Air 02/19/25 19:43 97.5 F L 74 17 124/52 L 98 02/19/25 16:00 73 Intake/Output Intake/Output: Intake & Output 02/17/25 02/18/25 02/19/25 02/20/25 23:59 23:59 23:59 23:59 Intake Total 1706 545 5181 250 Output Total 3700 4000 Balance 1200 -3530 1140 -3750 Meds/Results Medications: Active Medications Generic Name Dose Route Start Last Admin Trade Name Freq PRN Reason Stop Dose Admin Acetaminophen 650 mg 02/05/25 20:41 02/18/25 18:23 Acetaminophen 325 Mg Tablet PO 650 mg Q4H PRN Administration Mild Pain (1-5) Or Fever Hydrocodone Bitart/Acetaminophen 1 tab 02/19/25 07:13 02/20/25 11:20 Hydrocodone/Acetaminophen (*Crx) 5-325 Mg Tablet PO 1 tab Q6H PRN Administration Pain Rated 6 or Greater Alteplase, Recombinant 2 mg 02/16/25 09:21 02/16/25 09:30 Alteplase 2 Mg Vial (Cathflo) IV PUSH 2 mg ONCE PRN Administration Line Occlusion Alteplase, Recombinant 2 mg 02/16/25 09:24 02/16/25 09:30 Alteplase 2 Mg Vial (Cathflo) IV PUSH 2 mg ONCE PRN Administration Line Occlusion Bumetanide 2 mg 02/17/25 09:00 02/19/25 09:26 Bumetanide 1 Mg Tablet PO 2 mg SuTuThSa MARGUERITE Administration Buspirone HCl 10 mg 02/10/25 12:43 02/16/25 22:39 Buspirone Hcl 10 Mg Tablet PO 10 mg BID PRN Administration Anxiety Carvedilol 25 mg 02/11/25 21:00 02/20/25 13:42 Carvedilol 25 Mg Tablet PO Not Given Q12HR [facility] Dextrose 12.5 gm 02/05/25 21:36 Dextrose 50% 25 Gm/50 Ml Syringe IV PUSH PRN PRN Hypoglycemia Protocol Epoetin Sergio-epbx 10,000 units 02/20/25 17:59 02/20/25 11:26 Epoetin Sergio-Epbx 10,000 Units/Ml Vial IV PUSH 02/20/25 18:00 10,000 units ONCE ONE Administration Ergocalciferol 1,250 mcg 02/15/25 09:00 02/15/25 09:42 Ergocalciferol (Vitamin D2) 1,250 Mcg (50,000 Units) Capsule PO 1,250 mcg WEEKLY MARGUERITE Administration Escitalopram Oxalate 10 mg 02/14/25 07:00 02/20/25 08:19 Escitalopram Oxalate 10 Mg Tablet PO 10 mg DAILY MARGUERITE Administration Glucagon 1 mg 02/05/25 21:36 Glucagon For Inj 1 Mg Vial IM PRN PRN Hypoglycemia Protocol Glucose 15 gm 02/05/25 21:36 Glucose Oral Gel 15 Gm Of Glucse In 37.5 Gm Tube PO PRN PRN Hypoglycemia Protocol Heparin Sodium (Porcine) 1,000 units 02/11/25 11:47 02/11/25 12:03 Heparin Sodium 1,000 Units/Ml Vial IV PUSH 1,000 units Q1H PRN Administration DIALYSIS Heparin Sodium (Porcine) 5,000 units 02/19/25 09:00 02/20/25 13:43 Heparin Sodium 5,000 Units/Ml Vial SUB-Q 5,000 units Q12HR MARGUERITE Administration Hydroxyzine HCl 25 mg 02/16/25 12:22 02/19/25 20:46 Hydroxyzine Hcl 25 Mg Tablet PO 25 mg Q8H PRN Administration Itching Dextrose 1,000 mls @ 100 mls/hr 02/05/25 21:36 Dextrose 5% 1,000 Ml IVPB PRN PRN Hypoglycemia Protocol Albumin Human 50 mls @ 999 mls/hr 02/09/25 06:57 Albutein IVPB 03/11/25 06:56 Q10M PRN HYPOTENSION Insulin Aspart 4 - 8 units 02/06/25 08:00 02/20/25 13:56 Insulin Aspart (*Bkc) 100 Units/Ml SUB-Q Not Given TIDWM [facility] Protocol Insulin Aspart 2 - 4 units 02/05/25 21:45 02/19/25 20:32 Insulin Aspart (*Bkc) 100 Units/Ml SUB-Q Not Given HS [facility] Protocol Lisinopril 5 mg 02/16/25 09:00 02/20/25 13:42 Lisinopril 5 Mg Tablet PO Not Given DAILY MARGUERITE Lorazepam 0.5 mg 02/16/25 15:22 02/16/25 15:44 Lorazepam (*Crx) 0.5 Mg Tablet PO 0.5 mg DAILY PRN Administration Anxiety Multi-Ingred Cream/Lotion/Oil/Oint 1 applic 02/13/25 09:00 02/20/25 13:51 Eucerin Cream 120 Gm Jar TOPICAL 1 applic DAILY MARGUERITE Administration Ondansetron HCl 4 mg 02/05/25 20:41 Ondansetron Inj 4 Mg/2 Ml Vial IV PUSH Q6H PRN Nausea And Vomiting Pantoprazole Sodium 40 mg 02/14/25 09:00 02/20/25 13:43 Pantoprazole 40 Mg Tablet PO 40 mg DAILY MARGUERITE Administration Radiology Results: ITS Impressions Renal Ultrasound 02/06/25 17:09 IMPRESSION: Right kidney is unremarkable. Left kidney is not visualized. Venous Doppler Study 02/10/25 17:43 Impression: Negative for DVT. Renal Biopsy CT 02/13/25 10:19 IMPRESSION: 1. Successful CT-guided random left kidney biopsy. Chest X-Ray 02/18/25 12:30 Impression: CHF Central Venous Line 02/18/25 12:38 IMPRESSION: 1. Fluoroscopy utilized during dialysis catheter replacement. See procedure note for further detail. Labs Labs: Laboratory Tests 02/20/25 04:45 02/20/25 04:45 Calcium 8.0 L Total Bilirubin 0.4 AST 20 ALT 7 Alkaline Phosphatase 104 Total Protein 6.1 L Albumin 3.1 L
--- NOTE | 2025-02-20 12:31 | PCPTNOTE ---
The patient treatment was not able to be completed at this time due to patient out of room for dialysis. Will plan to continue treatment per plan of care.
[2025-02-20] MEDS: PANTOPRAZOLE 40 MG TABLET PO (13:43)
[2025-02-20] MEDS: IRON SUCROSE COMPLEX 400 MG in SODIUM CHLORIDE 0.9% IV 250 ML 108 MG IVPB (13:46)
[2025-02-20] MEDS: EUCERIN CREAM 120 GM JAR 1 APPLIC TOPICAL (13:51)
--- NOTE | 2025-02-20 16:33 | PC.NURSE ---
IV removed and discharge instructions reviewed with patient. PCT in room giving patient a bed bath and helping patient get into clothes to go home. Patient was told to call when she is ready to be wheeled to the car in a wheelchair. Patient called stating that she could not stand RN went to bedside where patient stated that she does not feel comfortable going home. She states her can not care for her the way that she needs. Patient states that she feels like she needs to go to a rehab facility to get better before she can go home to care for herself. Patient states that she went to [facility] before and it only took two weeks to get stronger RN notified Madeline Care Coordination. Madeline spoke with patient at bedside and is aware of patients concerns. RN called Neisha to notify him of patients concerns. MD aware that patient is no longer discharging. Neisha states that it is okay for patient to remain without IV access at this time.
[2025-02-21 05:16] VITALS: BP 142/59; PULSE 79; RESP 18; TEMP 36.3; O2SAT 98
[2025-02-21 08:05] VITALS: PULSE 79
[2025-02-21] MEDS: PANTOPRAZOLE 40 MG TABLET PO (08:06)
[2025-02-21] MEDS: EUCERIN CREAM 120 GM JAR 1 APPLIC TOPICAL (08:06)
[2025-02-21] MEDS: ESCITALOPRAM OXALATE 10 MG TABLET PO (08:06)
[2025-02-21] MEDS: BUMETANIDE 1 MG TABLET 2 MG PO (08:11)
--- NOTE | 2025-02-21 12:33 | P.PNIM_ITS ---
Progress Note: A&P Assessment and Plan (1) CHF (congestive heart failure): Qualifiers: Heart failure type: unspecified Heart failure chronicity: acute Qualified Code(s): I50.9 - Heart failure, unspecified Code(s): I50.9 - Heart failure, unspecified Status: Acute Assessment and Plan: Patient originally presented for primary complaint of shortness of breath and right lower extremity swelling (history of left BKA).? CXR showed mild CHF.?Fluid overload due to acute renal failure/ESRD and new onset systolic and diastolic CHF BNP >30K on admission on 02/05 Echo showing EF 30-35%, Grade I diastolic dysfunction, mild-mod MR and TR, moderate pHTN. Started Bumex but now on dialysis to control fluid status. Bumex oral on non- dialysis days. HD to control fluid status. Continue GDMT with Coreg, lisinopril. Plan (1) CHF (congestive heart failure): Patient originally presented for primary complaint of shortness of breath and right lower extremity swelling (history of left BKA).? CXR showed mild CHF.?Given new onset renal failure related to hypervolemia due to acute renal failure/ESRD and new onset systolic and diastolic CHF BNP greater than 30,000 upon admission on 02/05 Echo showing EF 30-35%, Grade I diastolic dysfunction, mild-mod MR and TR, moderate pHTN. Started Bumex 2 mg b.i.d. IV, now on dialysis HD to control fluid status. Continue GDMT with Coreg, lisinopril. (2) Acute kidney injury: Admitted for GARRISON. HD cath placed 02/08. Started on HD. 02/12 Kidney biopsy shows chronic injury consistent with a combination of vascular disease, ischemic injury, and diabetic nephropathy. There is no evidence of a superimposed active disease process. 02/13 Renal US: Right kidney is unremarkable. Left kidney is not visualized RUE edema and poor flow from dialysis catheter so HD catheter changed today. patient financial coordinator has arranged for: * Dialysis center set up, [id number] * Pt concerned about transportation to and from dialysis. Jose was given information about [facility] service, encouraged to call on Tuesday Follow. (3) Diabetes: Qualifiers: Chronic kidney disease stage: unspecified stage Diabetes mellitus complication detail: with chronic kidney disease Diabetes mellitus complication status: with kidney complications Diabetes mellitus technician terminal and repeater insulin use: without technician terminal and repeater use Diabetes mellitus type: type 2 Qualified Code(s): E11.22 - Type 2 diabetes mellitus with diabetic chronic kidney disease Code(s): E11.9 - Type 2 diabetes mellitus without complications Status: Chronic Assessment and Plan: A1c 8.6% on 02/05/2025. She has been off of her medications for the past 2 years since 2022.? She has not followed with any providers since 2022.? Diabetes complicated by previous diabetic foot infection requiring a left BKA in 2022. The patient's blood glucose was reviewed on 02/18 Glucose remains well controlled. Continue AccuCheks covering with sliding scale. Hypoglycemia protocol available as needed. Continue to follow special educator consulted Dietitian consulted (4) Hypertension: Patient's blood pressure was reviewed on 02/18 BP was markedly elevated on admission felt related to fluid overload. Blood pressure better controlled. Will continue to monitor (5) Anemia: Hgb in 2022 was in the 7 range. Hgb 10.6 on admission but now mostly in 8-9 range. 02/05: Ferritin 17, Iron 29, TIBC 400, %Sat 7. B12/folate normal. Anemia likely secondary to iron deficiency and probably CKD. Treated with venofer 400mg x1 02/06. Repeat irons studies probably a lab error Receiving intermittent Epogen Monitor Hgb and transfuse if <7 to a stable Hgb (6) Anxiety: Pt having anxiety since being in the hospital. Buspirone 10mg BID PRN on 02/12 Hydroxyzine and Ativan available prn (7) Elevated TSH: TSH 6.3 with normal FT4. Not on Synthroid. Defer to PCP to repeat thyroid panel when she is well. Plan DVT Prophylaxis - Sq Heparin Code status - full Awaiting placement Subjective Date/time seen: 02/21/25 12:33 Interval history: Comfortable at bedside Patient comfortable at bedside and awaiting placement Review of Systems Review of Systems: All systems reviewed & are unremarkable except as noted in HPI and below Exam Narrative: AF 97.8 131/54 73 14 99% ra Gen - NARD Chest - bibasilar crackles. Right upper chest tunneled IJ dialysis catheter CV - RRR S1/S2. Tele showing no significant dysrhythmias Abs - soft, obese, NT Ext - left BKA. right great toe amp. Trace RLE edema. Psych - nml mood Skin - warm and dry Const: General: no acute distress and uncomfortable Other: , female, nontoxic appearance HENMT: Face/Nose/Sinus: Normal nares present Mouth: Yes moist mucous membranes and Yes dry mucous membranes Eyes: General: appearance normal, both eyes and all related structures Sclera: sclerae normal Pupils: Equal, round and reactive pupils present EOM: EOMs intact bilaterally Neck: Neck: supple Resp: Effort & Inspection: normal respiratory effort Other: Bilateral lower lungs diminished lung sounds Cardio: Rate: regular rate Rhythm: regular rhythm Other: S1-S2 present without murmur, rub, ectopy GI: Inspection: non-distended Auscultation: abnormal bowel sounds (hypo, all quadrants) Other: Abdomen soft, nondistended, nontender. Skin: General skin exam: normal color and no rashes or lesions noted Other: Small scattered small areas of eschar less than 1 cm to bilateral shoulders, upper extremities, and forehead with no signs of infection. RLE: Normal inspection HD catheter to R subclavian Neuro: Cranial nerves: Yes Equal, round and reactive pupils present Speech: normal speech Sensory Exam: normal sensation Other: A&O x4, generalized weakness Extrem: Other: Left BKA. RLE trace. Thighs symmetric. RUE & LUE 1+ pitting edema Psych: Mental Status: mental status grossly normal Affect: normal affect and Anxious affect present Other: Good insight and judgment, very pleasant Objective Data Vital Signs Vital Signs: Vital Signs - 24 hr 02/20/25 14:00 02/20/25 20:42 02/20/25 20:56 Temperature 98.4 F 98.2 F Pulse Rate 68 77 77 Respiratory Rate 16 16 Blood Pressure 134/68 146/57 H Pulse Oximetry 99 97 Oxygen Delivery 02/21/25 05:16 02/21/25 08:00 02/21/25 08:05 Temperature 97.4 F L Pulse Rate 79 79 Respiratory Rate 18 Blood Pressure 142/59 H Pulse Oximetry 98 Oxygen Delivery Room Air Intake/Output Intake/Output: Intake & Output 02/18/25 02/19/25 02/20/25 02/21/25 23:59 23:59 23:59 23:59 Intake Total 170 1140 905 400 Output Total 3700 4000 Balance -3530 1140 -3095 400 Meds/Results Medications: Active Medications Generic Name Dose Route Start Last Admin Trade Name Benq PRN Reason Stop Dose Admin Acetaminophen 650 mg 02/05/25 20:41 02/18/25 18:23 Acetaminophen 325 Mg Tablet PO 650 mg Q4H PRN Administration Mild Pain (1-5) Or Fever Hydrocodone Bitart/Acetaminophen 1 tab 02/19/25 07:13 02/20/25 11:20 Hydrocodone/Acetaminophen (*Crx) 5-325 Mg Tablet PO 1 tab Q6H PRN Administration Pain Rated 6 or Greater Alteplase, Recombinant 2 mg 02/16/25 09:21 02/16/25 09:30 Alteplase 2 Mg Vial (Cathflo) IV PUSH 2 mg ONCE PRN Administration Line Occlusion Alteplase, Recombinant 2 mg 02/16/25 09:24 02/16/25 09:30 Alteplase 2 Mg Vial (Cathflo) IV PUSH 2 mg ONCE PRN Administration Line Occlusion Bumetanide 2 mg 02/17/25 09:00 02/21/25 08:11 Bumetanide 1 Mg Tablet PO 2 mg SuTuThSa MARGUERITE Administration Buspirone HCl 10 mg 02/10/25 12:43 02/16/25 22:39 Buspirone Hcl 10 Mg Tablet PO 10 mg BID PRN Administration Anxiety Carvedilol 25 mg 02/11/25 21:00 02/21/25 08:05 Carvedilol 25 Mg Tablet PO 25 mg Q12HR MARGUERITE Administration Dextrose 12.5 gm 02/05/25 21:36 Dextrose 50% 25 Gm/50 Ml Syringe IV PUSH PRN PRN Hypoglycemia Protocol Ergocalciferol 1,250 mcg 02/15/25 09:00 02/15/25 09:42 Ergocalciferol (Vitamin D2) 1,250 Mcg (50,000 Units) Capsule PO 1,250 mcg WEEKLY MARGUERITE Administration Escitalopram Oxalate 10 mg 02/14/25 07:00 02/21/25 08:06 Escitalopram Oxalate 10 Mg Tablet PO 10 mg DAILY MARGUREITE Administration Glucagon 1 mg 02/05/25 21:36 Glucagon For Inj 1 Mg Vial IM PRN PRN Hypoglycemia Protocol Glucose 15 gm 02/05/25 21:36 Glucose Oral Gel 15 Gm Of Glucse In 37.5 Gm Tube PO PRN PRN Hypoglycemia Protocol Heparin Sodium (Porcine) 1,000 units 02/11/25 11:47 02/11/25 12:03 Heparin Sodium 1,000 Units/Ml Vial IV PUSH 1,000 units Q1H PRN Administration DIALYSIS Heparin Sodium (Porcine) 5,000 units 02/19/25 09:00 02/21/25 08:06 Heparin Sodium 5,000 Units/Ml Vial SUB-Q 5,000 units Q12HR MARGUERITE Administration Hydroxyzine HCl 25 mg 02/16/25 12:22 02/19/25 20:46 Hydroxyzine Hcl 25 Mg Tablet PO 25 mg Q8H PRN Administration Itching Dextrose 1,000 mls @ 100 mls/hr 02/05/25 21:36 Dextrose 5% 1,000 Ml IVPB PRN PRN Hypoglycemia Protocol Albumin Human 50 mls @ 999 mls/hr 02/09/25 06:57 Albutein IVPB 03/11/25 06:56 Q10M PRN HYPOTENSION Insulin Aspart 4 - 8 units 02/06/25 08:00 02/21/25 10:17 Insulin Aspart (*Bkc) 100 Units/Ml SUB-Q Not Given TIDWM MARGUERITE Protocol Insulin Aspart 2 - 4 units 02/05/25 21:45 02/20/25 20:58 Insulin Aspart (*Bkc) 100 Units/Ml SUB-Q Not Given HS [facility] Protocol Lisinopril 5 mg 02/16/25 09:00 02/21/25 08:05 Lisinopril 5 Mg Tablet PO 5 mg DAILY MARGUERITE Administration Lorazepam 0.5 mg 02/16/25 15:22 02/16/25 15:44 Lorazepam (*Crx) 0.5 Mg Tablet PO 0.5 mg DAILY PRN Administration Anxiety Multi-Ingred Cream/Lotion/Oil/Oint 1 applic 02/13/25 09:00 02/21/25 08:06 Eucerin Cream 120 Gm Jar TOPICAL 1 applic DAILY MARGUERITE Administration Ondansetron HCl 4 mg 02/05/25 20:41 Ondansetron Inj 4 Mg/2 Ml Vial IV PUSH Q6H PRN Nausea And Vomiting Pantoprazole Sodium 40 mg 02/14/25 09:00 02/21/25 08:06 Pantoprazole 40 Mg Tablet PO 40 mg DAILY MARGUERITE Administration Radiology Results: ITS Impressions Renal Ultrasound 02/06/25 17:09 IMPRESSION: Right kidney is unremarkable. Left kidney is not visualized. Venous Doppler Study 02/10/25 17:43 Impression: Negative for DVT. Renal Biopsy CT 02/13/25 10:19 IMPRESSION: 1. Successful CT-guided random left kidney biopsy. Chest X-Ray 02/18/25 12:30 Impression: CHF Central Venous Line 02/18/25 12:38 IMPRESSION: 1. Fluoroscopy utilized during dialysis catheter replacement. See procedure note for further detail. Labs Labs: Laboratory Results - last 24 hr 02/20/25 02/20/25 02/20/25 13:55 16:42 20:35 POC Capillary Glucose 95 133 H 154 H 02/21/25 02/21/25 07:44 11:21 POC Capillary Glucose 98 111 H Quality VTE Prophylaxis VTE prophylaxis: mechanical ordered
--- NOTE | 2025-02-21 13:53 | P.PNNP_ITS ---
Progress Note: A&P Assessment and Plan (1) End stage renal disease: Code(s): N18.6 - End stage renal disease Status: Chronic Assessment and Plan: * as demonstrated by RENAL BIOPSY: * dvanced nephrosclerosis and class IV diabetic glomerulopathy - findings consistent with ischemic injury, vascular disease and diabetes - severe/diffuse interstitial fibrosis and tubular atrophy (~ 90%) * renal biopsy findings likely explains presentation: * volume overload * anasarca * metabolic acidosis * anemia * evaluation since admission already noted: * urine electrolytes non-prerenal * UA with blood and protein * CPK mildly elevated but not enough to affect kidney function * renal ultrasound okay (unable to visualize left kidney) * nephrotic range proteinuria noted (> 10 grams) * negative serological evaluation to date * elevated CRP and ESR noted * no significant improvement with IV diuretic therapy * s/p HD catheter placement on 02/08 * 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/08 * s/p daily HD/DUF for clearance and fluid removal * s/p new RIJ HD catheter placed (on 02/18) due previous dysfunctional HD cathether * HD tomorrow * continue M/W/F dialysis schedule as this will be her outpatient schedule (2) Volume overload: Code(s): E87.70 - Fluid overload, unspecified Status: Acute Assessment and Plan: * slow improvement * as noted by clinical exam (anasarca) * multifactorial etiology: * renal dysfunction * nephrotic range proteinuria/nephrotic syndrome * cardiomyopathy * vascular disease * no real improvement with previous IV diuretics on admission * however, still making some urine with diuretics * continue oral bumex of non-dialysis days * continue fluid removal with HD/DUF as tolerated * almost 22L negative since admission (3) Metabolic acidosis: Code(s): E87.20 - Acidosis, unspecified Status: Acute Assessment and Plan: * resolved (4) Cardiomyopathy: Code(s): I42.9 - Cardiomyopathy, unspecified Status: Acute Assessment and Plan: * acute versus chronic? * ischemic versus non-ischemic? * Echo results noted (02/06): * left ventricular systolic function is severely reduced, estimated at 30 - 35% * left ventricular diastolic function is grade I diastolic dysfunction * mild to moderate mitral valve regurgitation * mild to moderate tricuspid valve regurgitation * moderate pulmonary hypertension, estimated pulmonary arterial systolic pressure is 47 mmHg * mild pulmonic regurgitation * Cardiology following * GMDT maybe somewhat limited by her severe renal dysfunction * started low dose lisinopril along with carvedilol * would not be opposed to use of Entresto if BP can tolerate... (5) Hypertension: Qualifiers: Hypertension type: primary hypertension Qualified Code(s): I10 - Essential (primary) hypertension Code(s): I10 - Essential (primary) hypertension Status: Acute Assessment and Plan: * quite elevated on ER presentation (systolic BP > 200) * better control in general * switched hydralazine to lisinopril * continue carvedilol * continue dialysis/fluid removal * follow trend of hemodynamics (6) Anemia: Qualifiers: Anemia type: due to chronic kidney disease Chronic kidney disease stage: unspecified stage Qualified Code(s): N18.9 - Chronic kidney disease, unspecified; D63.1 - Anemia in chronic kidney disease Code(s): D64.9 - Anemia, unspecified Status: Acute Assessment and Plan: * at least partly related to renal dysfunction * anemia studies demonstrate iron deficiency * s/p IV iron * Epogen with HD * follow trend of H/H (7) Renal osteodystrophy: Code(s): N25.0 - Renal osteodystrophy Status: Acute Assessment and Plan: * calcium and phosphorus stable * Vitamin D low -- started on ergocalciferol * PTH in range (8) Diabetes: Qualifiers: Diabetes mellitus type: type 2 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 Subjective Date/time seen: 02/21/25 13:53 Interval history: Follow-up for newly diagnosed end stage renal disease. Tolerated dialysis treatment yesterday and was tentatively scheduled for discharge yesterday -- patient then reported not feeling safe to go home due to deconditioned state felt she needed rehab placement prior to going home, hence, discharge canceled; no other acute issues/events voiced at this time. Exam Narrative: General: WD/WN female in NAD Heart: normal S1 and S2; no rub Lungs: decreased at the bases Abdomen: obese but soft, nontender, nondistended, positive bowel sounds Extremities: no cyanosis or clubbing; trace - 1+ edema in RLE and BUEs; s/p left BKA Skin: warm and dry Objective Data Vital Signs Vital Signs: Vital Signs Temp Pulse Resp BP Pulse Ox O2 Del Method 02/21/25 13:00 98 F 81 16 133/57 L 97 02/21/25 08:05 79 02/21/25 08:00 Room Air 02/21/25 05:16 97.4 F L 79 18 142/59 H 98 02/20/25 20:56 77 02/20/25 20:42 98.2 F 77 16 146/57 H 97 Intake/Output Intake/Output: Intake & Output 02/18/25 02/19/25 02/20/25 02/21/25 23:59 23:59 23:59 23:59 Intake Total 170 1140 905 520 Output Total 3700 4000 Balance -3530 1140 -3095 520 Meds/Results Medications: Active Medications Generic Name Dose Route Start Last Admin Trade Name Freq PRN Reason Stop Dose Admin Acetaminophen 650 mg 02/05/25 20:41 02/18/25 18:23 Acetaminophen 325 Mg Tablet PO 650 mg Q4H PRN Administration Mild Pain (1-5) Or Fever Hydrocodone Bitart/Acetaminophen 1 tab 02/19/25 07:13 02/20/25 11:20 Hydrocodone/Acetaminophen (*Crx) 5-325 Mg Tablet PO 1 tab Q6H PRN Administration Pain Rated 6 or Greater Alteplase, Recombinant 2 mg 02/16/25 09:21 02/16/25 09:30 Alteplase 2 Mg Vial (Cathflo) IV PUSH 2 mg ONCE PRN Administration Line Occlusion Alteplase, Recombinant 2 mg 02/16/25 09:24 02/16/25 09:30 Alteplase 2 Mg Vial (Cathflo) IV PUSH 2 mg ONCE PRN Administration Line Occlusion Bumetanide 2 mg 02/17/25 09:00 02/21/25 08:11 Bumetanide 1 Mg Tablet PO 2 mg SuTuThSa MARGUERITE Administration Buspirone HCl 10 mg 02/10/25 12:43 02/16/25 22:39 Buspirone Hcl 10 Mg Tablet PO 10 mg BID PRN Administration Anxiety Carvedilol 25 mg 02/11/25 21:00 02/21/25 08:05 Carvedilol 25 Mg Tablet PO 25 mg Q12HR MARGUERITE Administration Dextrose 12.5 gm 02/05/25 21:36 Dextrose 50% 25 Gm/50 Ml Syringe IV PUSH PRN PRN Hypoglycemia Protocol Ergocalciferol 1,250 mcg 02/15/25 09:00 02/15/25 09:42 Ergocalciferol (Vitamin D2) 1,250 Mcg (50,000 Units) Capsule PO 1,250 mcg WEEKLY MARGUERITE Administration Escitalopram Oxalate 10 mg 02/14/25 07:00 02/21/25 08:06 Escitalopram Oxalate 10 Mg Tablet PO 10 mg DAILY MARGUERITE Administration Glucagon 1 mg 02/05/25 21:36 Glucagon For Inj 1 Mg Vial IM PRN PRN Hypoglycemia Protocol Glucose 15 gm 02/05/25 21:36 Glucose Oral Gel 15 Gm Of Glucse In 37.5 Gm Tube PO PRN PRN Hypoglycemia Protocol Heparin Sodium (Porcine) 1,000 units 02/11/25 11:47 02/11/25 12:03 Heparin Sodium 1,000 Units/Ml Vial IV PUSH 1,000 units Q1H PRN Administration DIALYSIS Heparin Sodium (Porcine) 5,000 units 02/19/25 09:00 02/21/25 08:06 Heparin Sodium 5,000 Units/Ml Vial SUB-Q 5,000 units Q12HR MARGUERIET Administration Hydroxyzine HCl 25 mg 02/16/25 12:22 02/19/25 20:46 Hydroxyzine Hcl 25 Mg Tablet PO 25 mg Q8H PRN Administration Itching Dextrose 1,000 mls @ 100 mls/hr 02/05/25 21:36 Dextrose 5% 1,000 Ml IVPB PRN PRN Hypoglycemia Protocol Albumin Human 50 mls @ 999 mls/hr 02/09/25 06:57 Albutein IVPB 03/11/25 06:56 Q10M PRN HYPOTENSION Insulin Aspart 4 - 8 units 02/06/25 08:00 02/21/25 17:31 Insulin Aspart (*Bkc) 100 Units/Ml SUB-Q Not Given TIDWM [facility] Protocol Insulin Aspart 2 - 4 units 02/05/25 21:45 02/20/25 20:58 Insulin Aspart (*Bkc) 100 Units/Ml SUB-Q Not Given HS [facility] Protocol Lisinopril 5 mg 02/16/25 09:00 02/21/25 08:05 Lisinopril 5 Mg Tablet PO 5 mg DAILY MARGUERITE Administration Lorazepam 0.5 mg 02/16/25 15:22 02/16/25 15:44 Lorazepam (*Crx) 0.5 Mg Tablet PO 0.5 mg DAILY PRN Administration Anxiety Multi-Ingred Cream/Lotion/Oil/Oint 1 applic 02/13/25 09:00 02/21/25 08:06 Eucerin Cream 120 Gm Jar TOPICAL 1 applic DAILY MARGUERITE Administration Ondansetron HCl 4 mg 02/05/25 20:41 Ondansetron Inj 4 Mg/2 Ml Vial IV PUSH Q6H PRN Nausea And Vomiting Pantoprazole Sodium 40 mg 02/14/25 09:00 02/21/25 08:06 Pantoprazole 40 Mg Tablet PO 40 mg DAILY MARGUERITE Administration Radiology Results: ITS Impressions Renal Ultrasound 02/06/25 17:09 IMPRESSION: Right kidney is unremarkable. Left kidney is not visualized. Venous Doppler Study 02/10/25 17:43 Impression: Negative for DVT. Renal Biopsy CT 02/13/25 10:19 IMPRESSION: 1. Successful CT-guided random left kidney biopsy. Chest X-Ray 02/18/25 12:30 Impression: CHF Central Venous Line 02/18/25 12:38 IMPRESSION: 1. Fluoroscopy utilized during dialysis catheter replacement. See procedure note for further detail. Labs Labs: Laboratory Results - last 24 hr 02/20/25 02/21/25 02/21/25 20:35 07:44 11:21 POC Capillary Glucose 154 H 98 111 H 02/21/25 17:02 POC Capillary Glucose 175 H
[2025-02-21 14:00] VITALS: BP 133/57; PULSE 81; RESP 16; TEMP 36.6; O2SAT 97
[2025-02-21 20:16] VITALS: BP 150/58; PULSE 82; RESP 20; TEMP 37; O2SAT 97
[2025-02-21 20:25] VITALS: PULSE 82
[2025-02-21] MEDS: HYDROcodone/acetaminophen (*CRX) 5-325 MG TABLET 1 TAB PO (21:15)
[2025-02-22] VITALS (26 sets, daily range): BP systolic 91–176; BP diastolic 20–83; PULSE 67–89; RESP 16–20; TEMP 36.2–37; O2SAT 98–100
[2025-02-22 05:19] LABS: Hematocrit 30.2 % (37.0-47.0); Hemoglobin 8.8 g/dL (12.0-15.0); Immature Granulocyte Percent A 0.5 % (0-0.5); Lymphocytes Absolute Auto 2.21 K/mm3 (0.9-3.2); Mean Corpuscular HGB Conc 29.1 g/dl (32-36); Mean Corpuscular Hemoglobin 24.0 pg (26-34); Mean Corpuscular Volume 82.3 fl (80-100); Nucleated Red Blood Cells Absolute Auto 0.040 K/mm3 (0.0-0.012); Nucleated Red Blood Cells Perc 0.4 % (0.0-0.2); Platelet Count Result 609 k/mm3 (150-375); Red Blood Count 3.67 M/mm3 (4.2-5.4); White Blood Count 11.1 K/mm3 (4.5-10.0)
[2025-02-22 05:31] LABS: Alanine Aminotransferase 7 U/L (6-35); Albumin Level 3.1 g/dL (3.5-5.1); Alkaline Phosphatase 116 U/L (38-126); Anion Gap 7 mmol/L (4-12); Aspartate Amino Transferase 21 U/L (14-36); Bilirubin,Total 0.5 mg/dL (0.2-1.3); Blood Urea Nitrogen 29 mg/dL (7-17); Calcium 8.4 mg/dL (8.4-10.2); Carbon Dioxide 29 mmol/L (22-30); Chloride 100 mmol/L (98-107); Estimated CRCL calculation 17 ml/min; Estimated Glomerular Filt Rate 10; Glucose 103 mg/dL (65-110); Magnesium 2.2 mg/dL (1.6-2.3); Potassium 3.4 mmol/L (3.4-5.0); Sodium 136 mmol/L (137-145); Total Protein 6.1 g/dL (6.3-8.2)
[2025-02-22 05:52] LABS: Anisocytosis 2+; Hypochromasia 1+; Ovalocytes 1+; Poikilocytosis Occasional; Target Cells 1+
[2025-02-22 05:53] LABS: Schistocytes Rare
[2025-02-22] MEDS: ERGOCALCIFEROL (VITAMIN D2) 1,250 MCG (50,000 UNITS) CAPSULE 1250 MCG PO (07:59)
[2025-02-22] MEDS: ESCITALOPRAM OXALATE 10 MG TABLET PO (07:59)
[2025-02-22] MEDS: PANTOPRAZOLE 40 MG TABLET PO (07:59)
[2025-02-22] MEDS: ACETAMINOPHEN 325 MG TABLET 650 MG PO (08:00)
--- NOTE | 2025-02-22 09:10 | P.PNNP_ITS ---
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 - findings consistent with ischemic injury, vascular disease and diabetes - severe/diffuse interstitial fibrosis and tubular atrophy (~ 90%) * renal biopsy findings likely explains presentation: * volume overload * anasarca * metabolic acidosis * anemia * evaluation since admission already noted: * urine electrolytes non-prerenal * UA with blood and protein * CPK mildly elevated but not enough to affect kidney function * renal ultrasound okay (unable to visualize left kidney) * nephrotic range proteinuria noted (> 10 grams) * negative serological evaluation to date * elevated CRP and ESR noted * no significant improvement with IV diuretic therapy * s/p HD catheter placement on 02/08 * 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/HD on 02/08 * s/p daily HD/DUF for clearance and fluid removal * s/p new RIJ HD catheter placed (on 02/18) due previous dysfunctional HD cathether * HD today * continue M/W/F dialysis schedule as this will be her outpatient schedule (2) Volume overload: Code(s): E87.70 - Fluid overload, unspecified Status: Acute Assessment and Plan: * slow improvement * as noted by clinical exam (anasarca) * multifactorial etiology: * renal dysfunction * nephrotic range proteinuria/nephrotic syndrome * cardiomyopathy * vascular disease * no real improvement with previous IV diuretics on admission * however, still making some urine with diuretics * continue oral bumex of non-dialysis days * continue fluid removal with HD/DUF as tolerated * almost 22L negative since admission (3) Metabolic acidosis: Code(s): E87.20 - Acidosis, unspecified Status: Acute Assessment and Plan: * resolved (4) Cardiomyopathy: Code(s): I42.9 - Cardiomyopathy, unspecified Status: Acute Assessment and Plan: * acute versus chronic? * ischemic versus non-ischemic? * Echo results noted (02/06): * left ventricular systolic function is severely reduced, estimated at 30 - 35% * left ventricular diastolic function is grade I diastolic dysfunction * mild to moderate mitral valve regurgitation * mild to moderate tricuspid valve regurgitation * moderate pulmonary hypertension, estimated pulmonary arterial systolic pressure is 47 mmHg * mild pulmonic regurgitation * Cardiology following * GMDT maybe somewhat limited by her severe renal dysfunction * started low dose lisinopril along with carvedilol * would not be opposed to use of Entresto if BP can tolerate... (5) Hypertension: Qualifiers: Hypertension type: primary hypertension Qualified Code(s): I10 - Essential (primary) hypertension Code(s): I10 - Essential (primary) hypertension Status: Acute Assessment and Plan: * quite elevated on ER presentation (systolic BP > 200) * better control in general * switched hydralazine to lisinopril * continue carvedilol * continue dialysis/fluid removal * follow trend of hemodynamics (6) Anemia: Qualifiers: Anemia type: due to chronic kidney disease Chronic kidney disease stage: unspecified stage Qualified Code(s): N18.9 - Chronic kidney disease, unspecified; D63.1 - Anemia in chronic kidney disease Code(s): D64.9 - Anemia, unspecified Status: Acute Assessment and Plan: * at least partly related to renal dysfunction * anemia studies demonstrate iron deficiency * s/p IV iron * Epogen with HD * follow trend of H/H (7) Renal osteodystrophy: Code(s): N25.0 - Renal osteodystrophy Status: Acute Assessment and Plan: * calcium and phosphorus stable * Vitamin D low -- started on ergocalciferol * PTH in range (8) Diabetes: Qualifiers: Diabetes mellitus type: type 2 Diabetes mellitus [facility] insulin use: without 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 L Subjective Date/time seen: 02/22/25 09:10 Interval history: Follow-up for newly diagnosed end stage renal disease. Tolerating dialysis treatment at the time of my visit (seen on HD at 09:00am); case management working on placement as the patient did not feel safe to go home and patient is now aware that she is deconditioned; no issues/events overnight or earlier this morning. Exam 2 Narrative: General: WD/WN female in NAD Heart: normal S1 and S2; no rub Lungs: decreased at the bases Abdomen: obese but soft, nontender, nondistended, positive bowel sounds Extremities: no cyanosis or clubbing; trace - 1+ edema in RLE and BUEs; s/p left BKA Skin: warm and intact Objective Data Vital Signs Vital Signs: Vital Signs Temp Pulse Resp BP Pulse Ox O2 Del Method 02/22/25 09:00 73 141/67 H 02/22/25 08:45 72 163/75 H 02/22/25 08:37 72 159/77 H 02/22/25 08:24 98.2 F 72 18 155/70 H 99 02/22/25 08:00 Room Air 02/22/25 07:59 67 02/22/25 05:30 97.2 F L 73 20 159/71 H 100 02/21/25 20:25 82 02/21/25 20:16 98.6 F 82 20 150/58 H 97 02/21/25 14:00 98 F 81 16 133/57 L 97 Intake/Output Intake/Output: Intake & Output 02/19/25 02/20/25 02/21/25 02/22/25 23:59 23:59 23:59 23:59 Intake Total 1140 905 760 240 Output Total 4000 Balance 1140 -3095 760 240 Meds/Results Medications: Active Medications Generic Name Dose Route Start Last Admin Trade Name Freq PRN Reason Stop Dose Admin Acetaminophen 650 mg 02/05/25 20:41 02/22/25 08:00 Acetaminophen 325 Mg Tablet PO 650 mg Q4H PRN Administration Mild Pain (1-5) Or Fever Hydrocodone Bitart/Acetaminophen 1 tab 02/19/25 07:13 02/22/25 11:38 Hydrocodone/Acetaminophen (*Crx) 5-325 Mg Tablet PO 1 tab Q6H PRN Administration Pain Rated 6 or Greater Alteplase, Recombinant 2 mg 02/16/25 09:21 02/16/25 09:30 Alteplase 2 Mg Vial (Cathflo) IV PUSH 2 mg ONCE PRN Administration Line Occlusion Alteplase, Recombinant 2 mg 02/16/25 09:24 02/16/25 09:30 Alteplase 2 Mg Vial (Cathflo) IV PUSH 2 mg ONCE PRN Administration Line Occlusion Bumetanide 2 mg 02/17/25 09:00 02/21/25 08:11 Bumetanide 1 Mg Tablet PO 2 mg SuTuThSa MARGUERITE Administration Buspirone HCl 10 mg 02/10/25 12:43 02/22/25 08:00 Buspirone Hcl 10 Mg Tablet PO 10 mg BID PRN Administration Anxiety Carvedilol 25 mg 02/11/25 21:00 02/22/25 07:59 Carvedilol 25 Mg Tablet PO 25 mg Q12HR MARGUERITE Administration Dextrose 12.5 gm 02/05/25 21:36 Dextrose 50% 25 Gm/50 Ml Syringe IV PUSH PRN PRN Hypoglycemia Protocol Ergocalciferol 1,250 mcg 02/15/25 09:00 02/22/25 07:59 Ergocalciferol (Vitamin D2) 1,250 Mcg (50,000 Units) Capsule PO 1,250 mcg WEEKLY MARGUERITE Administration Escitalopram Oxalate 10 mg 02/14/25 07:00 02/22/25 07:59 Escitalopram Oxalate 10 Mg Tablet PO 10 mg DAILY MARGUREITE Administration Glucagon 1 mg 02/05/25 21:36 Glucagon For Inj 1 Mg Vial IM PRN PRN Hypoglycemia Protocol Glucose 15 gm 02/05/25 21:36 Glucose Oral Gel 15 Gm Of Glucse In 37.5 Gm Tube PO PRN PRN Hypoglycemia Protocol Heparin Sodium (Porcine) 1,000 units 02/11/25 11:47 02/11/25 12:03 Heparin Sodium 1,000 Units/Ml Vial IV PUSH 1,000 units Q1H PRN Administration DIALYSIS Heparin Sodium (Porcine) 5,000 units 02/19/25 09:00 02/22/25 08:45 Heparin Sodium 5,000 Units/Ml Vial SUB-Q Not Given Q12HR [facility] Hydroxyzine HCl 25 mg 02/16/25 12:22 02/19/25 20:46 Hydroxyzine Hcl 25 Mg Tablet PO 25 mg Q8H PRN Administration Itching Dextrose 1,000 mls @ 100 mls/hr 02/05/25 21:36 Dextrose 5% 1,000 Ml IVPB PRN PRN Hypoglycemia Protocol Albumin Human 50 mls @ 999 mls/hr 02/09/25 06:57 Albutein IVPB 03/11/25 06:56 Q10M PRN HYPOTENSION Albumin Human 50 mls @ 999 mls/hr 02/22/25 07:17 Albutein IVPB 02/23/25 07:16 Q10M PRN HYPOTENSION Insulin Aspart 4 - 8 units 02/06/25 08:00 02/22/25 09:19 Insulin Aspart (*Bkc) 100 Units/Ml SUB-Q Not Given TIDWM [facility] Protocol Insulin Aspart 2 - 4 units 02/05/25 21:45 02/21/25 20:25 Insulin Aspart (*Bkc) 100 Units/Ml SUB-Q Not Given HS [facility] Protocol Lisinopril 5 mg 02/16/25 09:00 02/21/25 08:05 Lisinopril 5 Mg Tablet PO 5 mg DAILY MARGUERITE Administration Lorazepam 0.5 mg 02/16/25 15:22 02/16/25 15:44 Lorazepam (*Crx) 0.5 Mg Tablet PO 0.5 mg DAILY PRN Administration Anxiety Multi-Ingred Cream/Lotion/Oil/Oint 1 applic 02/13/25 09:00 02/21/25 08:06 Eucerin Cream 120 Gm Jar TOPICAL 1 applic DAILY MARGUERITE Administration Ondansetron HCl 4 mg 02/05/25 20:41 Ondansetron Inj 4 Mg/2 Ml Vial IV PUSH Q6H PRN Nausea And Vomiting Pantoprazole Sodium 40 mg 02/14/25 09:00 02/22/25 07:59 Pantoprazole 40 Mg Tablet PO 40 mg DAILY MARGUERITE Administration Radiology Results: ITS Impressions Renal Ultrasound 02/06/25 17:09 IMPRESSION: Right kidney is unremarkable. Left kidney is not visualized. Venous Doppler Study 02/10/25 17:43 Impression: Negative for DVT. Renal Biopsy CT 02/13/25 10:19 IMPRESSION: 1. Successful CT-guided random left kidney biopsy. Chest X-Ray 02/18/25 12:30 Impression: CHF Central Venous Line 02/18/25 12:38 IMPRESSION: 1. Fluoroscopy utilized during dialysis catheter replacement. See procedure note for further detail. Labs Labs: Laboratory Tests 02/22/25 04:59 02/22/25 04:59 Calcium 8.4 Magnesium 2.2 Total Bilirubin 0.5 AST 21 ALT 7 Alkaline Phosphatase 116 Total Protein 6.1 L Albumin 3.1 L
--- NOTE | 2025-02-22 10:56 | PCPTNOTE ---
The patient treatment was not able to be completed due to patient out of room for dialysis. Will plan to continue treatment per plan of care.
[2025-02-22] MEDS: EPOETIN ALFA-EPBX 10,000 UNITS/ML VIAL 10000 UNITS IV PUSH (11:08)
[2025-02-22] MEDS: HYDROcodone/acetaminophen (*CRX) 5-325 MG TABLET 1 TAB PO ×2 (11:38→21:13)
[2025-02-22] MEDS: EUCERIN CREAM 120 GM JAR 1 APPLIC TOPICAL (12:38)
[2025-02-22] MEDS: ONDANSETRON HCL ODT 4 MG TABLET PO (13:23)
--- NOTE | 2025-02-22 13:57 | PM.IMPN ---
Progress Note: A&P Assessment and Plan (1) CHF (congestive heart failure): Qualifiers: Heart failure type: unspecified Heart failure chronicity: acute Qualified Code(s): I50.9 - Heart failure, unspecified Code(s): I50.9 - Heart failure, unspecified Status: Acute Assessment and Plan: Patient originally presented for primary complaint of shortness of breath and right lower extremity swelling (history of left BKA).? CXR showed mild CHF.?Fluid overload due to acute renal failure/ESRD and new onset systolic and diastolic CHF BNP >30K on admission on 02/05 Echo showing EF 30-35%, Grade I diastolic dysfunction, mild-mod MR and TR, moderate pHTN. Started Bumex but now on dialysis to control fluid status. Bumex oral on non-dialysis days. HD to control fluid status. Continue GDMT with Coreg, lisinopril. (2) Diabetes: Qualifiers: Diabetes mellitus type: type 2 Diabetes mellitus ocean transportation intermediary insulin use: without ocean transportation intermediary use Diabetes mellitus complication status: with kidney complications Diabetes mellitus complication detail: with chronic kidney disease Chronic kidney disease stage: unspecified stage Qualified Code(s): E11.22 - Type 2 diabetes mellitus with diabetic chronic kidney disease Code(s): E11.9 - Type 2 diabetes mellitus without complications Status: Chronic (3) Acute kidney injury: Code(s): N17.9 - Acute kidney failure, unspecified Status: Acute (4) Status post below-knee amputation of left lower extremity: Code(s): Z89.512 - Acquired absence of left leg below knee Status: Acute Plan # CHF (congestive heart failure): Patient originally presented for primary complaint of shortness of breath and right lower extremity swelling (history of left BKA).? CXR showed mild CHF.?Given new onset renal failure related to hypervolemia due to acute renal failure/ESRD and new onset systolic and diastolic CHF BNP greater than 30,000 upon admission on 02/05 Echo showing EF 30-35%, Grade I diastolic dysfunction, mild-mod MR and TR, moderate pHTN. Started Bumex 2 mg b.i.d. IV, now on dialysis HD to control fluid status. Continue GDMT with Coreg, lisinopril. # Acute kidney injury: Admitted for GARRISON. HD cath placed 02/08. Started on HD. 02/12 Kidney biopsy shows chronic injury consistent with a combination of vascular disease, ischemic injury, and diabetic nephropathy. There is no evidence of a superimposed active disease process. 02/13 Renal US: Right kidney is unremarkable. Left kidney is not visualized RUE edema and poor flow from dialysis catheter so HD catheter changed 02/18/2025 nutrition coordinator has arranged for: Dialysis center set up, [facility] @ 1645 Pt concerned about transportation to and from dialysis. Jose was given information about [facility] service, encouraged to call on Tuesday Follow. # Diabetes: A1c 8.6% on 02/05/2025. She has been off of her medications for the past 2 years since 2022.? She has not followed with any providers since 2022.? Diabetes complicated by previous diabetic foot infection requiring a left BKA in 2022. The patient's blood glucose was reviewed on 02/18 Glucose remains well controlled. Continue AccuCheks covering with sliding scale. Hypoglycemia protocol available as needed. Continue to follow extension educator consulted Dietitian consulted # Hypertension: BP was markedly elevated on admission felt related to fluid overload. Blood pressure better controlled. Will continue to monitor # Anemia: Hgb in 2022 was in the 7 range. Hgb 10.6 on admission but now mostly in 8-9 range. 02/05: Ferritin 17, Iron 29, TIBC 400, %Sat 7. B12/folate normal. Anemia likely secondary to iron deficiency and probably CKD. Treated with venofer 400mg x1 02/06. Repeat irons studies probably a lab error Receiving intermittent Epogen Monitor Hgb and transfuse if <7 to a stable Hgb # Anxiety: Pt having anxiety since being in the hospital. Buspirone 10mg BID PRN on 02/12 Hydroxyzine and Ativan available prn # Elevated TSH: TSH 6.3 with normal FT4. Not on Synthroid. Defer to PCP to repeat thyroid panel when she is well. # DVT Prophylaxis - Sq Heparin # Code status - full # disposition: Awaiting placement Subjective Date/time seen: 02/22/25 13:57 Interval history: No overnight events. Seen during dialysis. Tolerating well. Intermittent nausea. Awaiting placement for because of weakness/deconditioning. Review of Systems Review of Systems: All systems reviewed & are unremarkable except as noted in HPI and below Exam Narrative: Gen - NARD Chest - bibasilar crackles. Right upper chest tunneled IJ dialysis catheter CV - RRR S1/S2. Abs - soft, obese, NT Ext - left BKA. right great toe amp. Trace RLE edema. Psych - nml mood Skin - warm and dry Objective Data Vital Signs Vital Signs: Vital Signs - 24 hr 02/21/25 14:00 02/21/25 20:16 02/21/25 20:25 Temperature 98 F 98.6 F Pulse Rate 81 82 82 Respiratory Rate 16 20 Blood Pressure 133/57 L 150/58 H Pulse Oximetry 97 97 Oxygen Delivery 02/22/25 05:30 02/22/25 07:59 02/22/25 08:00 Temperature 97.2 F L Pulse Rate 73 67 Respiratory Rate 20 Blood Pressure 159/71 H Pulse Oximetry 100 Oxygen Delivery Room Air 02/22/25 08:24 02/22/25 08:37 02/22/25 08:45 Temperature 98.2 F Pulse Rate 72 72 72 Respiratory Rate 18 Blood Pressure 155/70 H 159/77 H 163/75 H Pulse Oximetry 99 Oxygen Delivery 02/22/25 09:00 02/22/25 09:15 02/22/25 09:30 Temperature Pulse Rate 73 72 71 Respiratory Rate Blood Pressure 141/67 H 130/65 134/64 Pulse Oximetry Oxygen Delivery 02/22/25 09:45 02/22/25 10:00 02/22/25 10:15 Temperature Pulse Rate 71 70 70 Respiratory Rate Blood Pressure 135/65 137/68 128/66 Pulse Oximetry Oxygen Delivery 02/22/25 10:30 02/22/25 10:45 02/22/25 11:00 Temperature Pulse Rate 70 71 71 Respiratory Rate Blood Pressure 129/65 130/69 125/61 Pulse Oximetry Oxygen Delivery 02/22/25 11:15 02/22/25 11:30 02/22/25 11:34 Temperature Pulse Rate 71 89 72 Respiratory Rate Blood Pressure 119/58 L 91/20 L 124/60 Pulse Oximetry Oxygen Delivery 02/22/25 11:45 02/22/25 12:00 02/22/25 12:07 Temperature Pulse Rate 70 73 72 Respiratory Rate Blood Pressure 161/78 H 150/75 H 173/82 H Pulse Oximetry Oxygen Delivery 02/22/25 12:13 Temperature 98.2 F Pulse Rate 76 Respiratory Rate 16 Blood Pressure 176/83 H Pulse Oximetry 99 Oxygen Delivery Intake/Output Intake/Output: Intake & Output 02/19/25 02/20/25 02/21/25 02/22/25 23:59 23:59 23:59 23:59 Intake Total 1140 905 760 240 Output Total 4000 3000 Balance 1140 -3095 760 -2220 Meds/Results Medications: Active Medications Generic Name Dose Route Start Last Admin Trade Name Freq PRN Reason Stop Dose Admin Acetaminophen 650 mg 02/05/25 20:41 02/22/25 08:00 Acetaminophen 325 Mg Tablet PO 650 mg Q4H PRN Administration Mild Pain (1-5) Or Fever Hydrocodone Bitart/Acetaminophen 1 tab 02/19/25 07:13 02/22/25 11:38 Hydrocodone/Acetaminophen (*Crx) 5-325 Mg Tablet PO 1 tab Q6H PRN Administration Pain Rated 6 or Greater Alteplase, Recombinant 2 mg 02/16/25 09:21 02/16/25 09:30 Alteplase 2 Mg Vial (Cathflo) IV PUSH 2 mg ONCE PRN Administration Line Occlusion Alteplase, Recombinant 2 mg 02/16/25 09:24 02/16/25 09:30 Alteplase 2 Mg Vial (Cathflo) IV PUSH 2 mg ONCE PRN Administration Line Occlusion Bumetanide 2 mg 02/17/25 09:00 02/21/25 08:11 Bumetanide 1 Mg Tablet PO 2 mg SuTuThSa MARGUERITE Administration Buspirone HCl 10 mg 02/10/25 12:43 02/22/25 08:00 Buspirone Hcl 10 Mg Tablet PO 10 mg BID PRN Administration Anxiety Carvedilol 25 mg 02/11/25 21:00 02/22/25 07:59 Carvedilol 25 Mg Tablet PO 25 mg Q12HR MARGUERITE Administration Dextrose 12.5 gm 02/05/25 21:36 Dextrose 50% 25 Gm/50 Ml Syringe IV PUSH PRN PRN Hypoglycemia Protocol Ergocalciferol 1,250 mcg 02/15/25 09:00 02/22/25 07:59 Ergocalciferol (Vitamin D2) 1,250 Mcg (50,000 Units) Capsule PO 1,250 mcg WEEKLY MARGUERITE Administration Escitalopram Oxalate 10 mg 02/14/25 07:00 02/22/25 07:59 Escitalopram Oxalate 10 Mg Tablet PO 10 mg DAILY MARGUERITE Administration Glucagon 1 mg 02/05/25 21:36 Glucagon For Inj 1 Mg Vial IM PRN PRN Hypoglycemia Protocol Glucose 15 gm 02/05/25 21:36 Glucose Oral Gel 15 Gm Of Glucse In 37.5 Gm Tube PO PRN PRN Hypoglycemia Protocol Heparin Sodium (Porcine) 1,000 units 02/11/25 11:47 02/11/25 12:03 Heparin Sodium 1,000 Units/Ml Vial IV PUSH 1,000 units Q1H PRN Administration DIALYSIS Heparin Sodium (Porcine) 5,000 units 02/19/25 09:00 02/22/25 08:45 Heparin Sodium 5,000 Units/Ml Vial SUB-Q Not Given Q12HR MARGUERITE Hydroxyzine HCl 25 mg 02/16/25 12:22 02/19/25 20:46 Hydroxyzine Hcl 25 Mg Tablet PO 25 mg Q8H PRN Administration Itching Dextrose 1,000 mls @ 100 mls/hr 02/05/25 21:36 Dextrose 5% 1,000 Ml IVPB PRN PRN Hypoglycemia Protocol Albumin Human 50 mls @ 999 mls/hr 02/09/25 06:57 Albutein IVPB 03/11/25 06:56 Q10M PRN HYPOTENSION Albumin Human 50 mls @ 999 mls/hr 02/22/25 07:17 Albutein IVPB 02/23/25 07:16 Q10M PRN HYPOTENSION Insulin Aspart 4 - 8 units 02/06/25 08:00 02/22/25 12:42 Insulin Aspart (*Bkc) 100 Units/Ml SUB-Q Not Given TIDWM MARGUERITE Protocol Insulin Aspart 2 - 4 units 02/05/25 21:45 02/21/25 20:25 Insulin Aspart (*Bkc) 100 Units/Ml SUB-Q Not Given HS MARGUERITE Protocol Lisinopril 5 mg 02/16/25 09:00 02/22/25 12:38 Lisinopril 5 Mg Tablet PO 5 mg DAILY MARGUERITE Administration Lorazepam 0.5 mg 02/16/25 15:22 02/16/25 15:44 Lorazepam (*Crx) 0.5 Mg Tablet PO 0.5 mg DAILY PRN Administration Anxiety Multi-Ingred Cream/Lotion/Oil/Oint 1 applic 02/13/25 09:00 02/22/25 12:38 Eucerin Cream 120 Gm Jar TOPICAL 1 applic DAILY MARGUERITE Administration Ondansetron HCl 4 mg 02/05/25 20:41 Ondansetron Inj 4 Mg/2 Ml Vial IV PUSH Q6H PRN Nausea And Vomiting Ondansetron HCl 4 mg 02/22/25 13:15 02/22/25 13:23 Ondansetron Hcl Odt 4 Mg Tablet PO 4 mg Q6H PRN Administration Nausea And Vomiting Pantoprazole Sodium 40 mg 02/14/25 09:00 02/22/25 07:59 Pantoprazole 40 Mg Tablet PO 40 mg DAILY MARGUERITE Administration Radiology Results: ITS Impressions Renal Ultrasound 02/06/25 17:09 IMPRESSION: Right kidney is unremarkable. Left kidney is not visualized. Venous Doppler Study 02/10/25 17:43 Impression: Negative for DVT. Renal Biopsy CT 02/13/25 10:19 IMPRESSION: 1. Successful CT-guided random left kidney biopsy. Chest X-Ray 02/18/25 12:30 Impression: CHF Central Venous Line 02/18/25 12:38 IMPRESSION: 1. Fluoroscopy utilized during dialysis catheter replacement. See procedure note for further detail. Labs Labs: Laboratory Results - last 24 hr 02/21/25 02/21/25 02/22/25 17:02 20:07 04:59 WBC 11.1 H RBC 3.67 L Hgb 8.8 L Hct 30.2 L MCV 82.3 MCH 24.0 L MCHC 29.1 L RDW 20.9 H Plt Count 609 H MPV 9.7 Immature Gran % (Auto) 0.5 Neut % (Auto) 57.7 Lymph % (Auto) 19.9 [place] % (Auto) 16.4 H Eos % (Auto) 4.7 H Baso % (Auto) 0.8 Lymph # (Auto) 2.21 [place] # (Auto) 1.8 H Eos # (Auto) 0.5 H Baso # (Auto) 0.1 Abs Immat Gran (auto) 0.06 H Absolute Neuts (auto) 6.4 Absolute Nucleated RBC 0.040 H Band Neutrophils % Not Reportable Nucleated RBC % 0.4 H Platelet Estimate Increased Hypochromasia 1+ Poikilocytosis Occasional Anisocytosis 2+ Target Cells 1+ Ovalocytes 1+ Schistocytes Rare Sodium 136 L Potassium 3.4 Chloride 100 Carbon Dioxide 29 Anion Gap 7 BUN 29 H Creatinine 4.69 H Estim Creat Clear Calc 17 Estimated GFR 10 L Glucose 103 POC Capillary Glucose 175 H 187 H Calcium 8.4 Magnesium 2.2 Total Bilirubin 0.5 AST 21 ALT 7 Alkaline Phosphatase 116 Total Protein 6.1 L Albumin 3.1 L 02/22/25 02/22/25 07:35 12:40 WBC RBC Hgb Hct MCV MCH MCHC RDW Plt Count MPV Immature Gran % (Auto) Neut % (Auto) Lymph % (Auto) [place] % (Auto) Eos % (Auto) Baso % (Auto) Lymph # (Auto) [place] # (Auto) Eos # (Auto) Baso # (Auto) Abs Immat Gran (auto) Absolute Neuts (auto) Absolute Nucleated RBC Band Neutrophils % Nucleated RBC % Platelet Estimate Hypochromasia Poikilocytosis Anisocytosis Target Cells Ovalocytes Schistocytes Sodium Potassium Chloride Carbon Dioxide Anion Gap BUN Creatinine Estim Creat Clear Calc Estimated GFR Glucose POC Capillary Glucose 109 H 100 Calcium Magnesium Total Bilirubin AST ALT Alkaline Phosphatase Total Protein Albumin
--- NOTE | 2025-02-22 16:08 | PC.NURSE ---
Patient c/o pain to right upper thigh. Area bruised and edematous. Dr Segovia notified.
[2025-02-23 05:15] VITALS: BP 147/64; PULSE 74; RESP 16; TEMP 36.4; O2SAT 99
[2025-02-23 10:26] VITALS: PULSE 72
[2025-02-23] MEDS: BUMETANIDE 1 MG TABLET 2 MG PO (10:26)
[2025-02-23] MEDS: ESCITALOPRAM OXALATE 10 MG TABLET PO (10:27)
[2025-02-23] MEDS: PANTOPRAZOLE 40 MG TABLET PO (10:28)
--- NOTE | 2025-02-23 12:35 | P.PNNP_ITS ---
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 - findings consistent with ischemic injury, vascular disease and diabetes - severe/diffuse interstitial fibrosis and tubular atrophy (~ 90%) * renal biopsy findings likely explains presentation: * volume overload * anasarca * metabolic acidosis * anemia * evaluation since admission already noted: * urine electrolytes non-prerenal * UA with blood and protein * CPK mildly elevated but not enough to affect kidney function * renal ultrasound okay (unable to visualize left kidney) * nephrotic range proteinuria noted (> 10 grams) * negative serological evaluation to date * elevated CRP and ESR noted * no significant improvement with IV diuretic therapy * s/p HD catheter placement on 02/08 * initiated on QUANTITATIVE ASSOCIATE/HD on 02/08 * s/p daily HD/DUF for clearance and fluid removal * s/p new RIJ HD catheter placed (on 02/18) due previous dysfunctional HD cathether * HD yesterday * continue M/W/F dialysis schedule as this will be her outpatient schedule (2) Volume overload: Code(s): E87.70 - Fluid overload, unspecified Status: Acute Assessment and Plan: * slow improvement * as noted by clinical exam (anasarca) * multifactorial etiology: * renal dysfunction * nephrotic range proteinuria/nephrotic syndrome * cardiomyopathy * vascular disease * no real improvement with previous IV diuretics on admission * however, still making some urine with diuretics * continue oral bumex of non-dialysis days * continue fluid removal with HD/DUF as tolerated * almost 22L negative since admission (3) Metabolic acidosis: Code(s): E87.20 - Acidosis, unspecified Status: Acute Assessment and Plan: * resolved (4) Cardiomyopathy: Code(s): I42.9 - Cardiomyopathy, unspecified Status: Acute Assessment and Plan: * acute versus chronic? * ischemic versus non-ischemic? * Echo results noted (02/06): * left ventricular systolic function is severely reduced, estimated at 30 - 35% * left ventricular diastolic function is grade I diastolic dysfunction * mild to moderate mitral valve regurgitation * mild to moderate tricuspid valve regurgitation * moderate pulmonary hypertension, estimated pulmonary arterial systolic pressure is 47 mmHg * mild pulmonic regurgitation * Cardiology following * GMDT maybe somewhat limited by her severe renal dysfunction * started low dose lisinopril along with carvedilol * would not be opposed to use of Entresto if BP can tolerate... (5) Hypertension: Qualifiers: Hypertension type: primary hypertension Qualified Code(s): I10 - Essential (primary) hypertension Code(s): I10 - Essential (primary) hypertension Status: Acute Assessment and Plan: * quite elevated on ER presentation (systolic BP > 200) * better control in general * on low dose lisinopril - titrate as needed * continue carvedilol * continue dialysis/fluid removal * follow trend of hemodynamics (6) Anemia: Qualifiers: Anemia type: due to chronic kidney disease Chronic kidney disease stage: unspecified stage Qualified Code(s): N18.9 - Chronic kidney disease, unspecified; D63.1 - Anemia in chronic kidney disease Code(s): D64.9 - Anemia, unspecified Status: Acute Assessment and Plan: * at least partly related to renal dysfunction * anemia studies demonstrate iron deficiency * s/p IV iron * Epogen with HD * follow trend of H/H (7) Renal osteodystrophy: Code(s): N25.0 - Renal osteodystrophy Status: Acute Assessment and Plan: * calcium and phosphorus stable * Vitamin D low -- started on ergocalciferol * PTH in range (8) Diabetes: Qualifiers: Diabetes mellitus type: type 2 Diabetes mellitus intermediate insulin use: without intermediate use Diabetes mellitus complication status: with kidney complications Diabetes mellitus complication detail: with chronic kidney disease Chronic kidney disease stage: unspecified stage Qualified Code(s): E11.22 - Type 2 diabetes mellitus with diabetic chronic kidney disease Code(s): E11.9 - Type 2 diabetes mellitus without complications Status: Chronic Assessment and Plan: * follow accu-cheks * glycemic control per hospitalist Will continue to follow. Subjective Date/time seen: 02/23/25 12:35 Interval history: Follow-up for newly diagnosed end stage renal disease. Tolerated dialysis treatment yesterday although BP dropped toward the end HD session but recovered when blood returned; swelling/edema has improved significantly if not stable; no apparent distress noted at the time of my visit. Exam Narrative: General: WD/WN female in NAD Heart: normal S1 and S2; no rub Lungs: decreased at the bases Abdomen: obese but soft, nontender, nondistended, positive bowel sounds Extremities: no cyanosis or clubbing; trace edema in RLE and BUEs; s/p left BKA Skin: no rash Objective Data Vital Signs Vital Signs: Vital Signs Temp Pulse Resp BP Pulse Ox O2 Del Method FiO2 02/23/25 12:10 97.5 F L 76 20 136/59 L 97 02/23/25 10:26 72 02/23/25 08:00 Room Air 0 02/23/25 05:15 97.6 F 74 16 147/64 H 99 02/22/25 21:14 74 02/22/25 21:01 97.7 F 74 16 123/54 L 98 02/22/25 20:00 74 16 98 Room Air 0 Intake/Output Intake/Output: Intake & Output 02/20/25 02/21/25 02/22/25 02/23/25 23:59 23:59 23:59 23:59 Intake Total 905 760 480 662 Output Total 4000 3000 0 Balance -3095 760 -2520 662 Meds/Results Medications: Active Medications Generic Name Dose Route Start Last Admin Trade Name Freq PRN Reason Stop Dose Admin Acetaminophen 650 mg 02/05/25 20:41 02/22/25 08:00 Acetaminophen 325 Mg Tablet PO 650 mg Q4H PRN Administration Mild Pain (1-5) Or Fever Hydrocodone Bitart/Acetaminophen 1 tab 02/19/25 07:13 02/23/25 14:23 Hydrocodone/Acetaminophen (*Crx) 5-325 Mg Tablet PO 1 tab Q6H PRN Administration Pain Rated 6 or Greater Alteplase, Recombinant 2 mg 02/16/25 09:21 02/16/25 09:30 Alteplase 2 Mg Vial (Cathflo) IV PUSH 2 mg ONCE PRN Administration Line Occlusion Alteplase, Recombinant 2 mg 02/16/25 09:24 02/16/25 09:30 Alteplase 2 Mg Vial (Cathflo) IV PUSH 2 mg ONCE PRN Administration Line Occlusion Bumetanide 2 mg 02/17/25 09:00 02/23/25 10:26 Bumetanide 1 Mg Tablet PO 2 mg SuTuThSa MARGUERITE Administration Buspirone HCl 10 mg 02/10/25 12:43 02/23/25 17:37 Buspirone Hcl 10 Mg Tablet PO 10 mg BID PRN Administration Anxiety Carvedilol 25 mg 02/11/25 21:00 02/23/25 10:26 Carvedilol 25 Mg Tablet PO 25 mg Q12HR MARGUERITE Administration Dextrose 12.5 gm 02/05/25 21:36 Dextrose 50% 25 Gm/50 Ml Syringe IV PUSH PRN PRN Hypoglycemia Protocol Ergocalciferol 1,250 mcg 02/15/25 09:00 02/22/25 07:59 Ergocalciferol (Vitamin D2) 1,250 Mcg (50,000 Units) Capsule PO 1,250 mcg WEEKLY MARGUERITE Administration Escitalopram Oxalate 10 mg 02/14/25 07:00 02/23/25 10:27 Escitalopram Oxalate 10 Mg Tablet PO 10 mg DAILY MARGUERITE Administration Glucagon 1 mg 02/05/25 21:36 Glucagon For Inj 1 Mg Vial IM PRN PRN Hypoglycemia Protocol Glucose 15 gm 02/05/25 21:36 Glucose Oral Gel 15 Gm Of Glucse In 37.5 Gm Tube PO PRN PRN Hypoglycemia Protocol Heparin Sodium (Porcine) 1,000 units 02/11/25 11:47 02/11/25 12:03 Heparin Sodium 1,000 Units/Ml Vial IV PUSH 1,000 units Q1H PRN Administration DIALYSIS Heparin Sodium (Porcine) 5,000 units 02/19/25 09:00 02/23/25 10:27 Heparin Sodium 5,000 Units/Ml Vial SUB-Q 5,000 units Q12HR MARGUERITE Administration Hydroxyzine HCl 25 mg 02/16/25 12:22 02/19/25 20:46 Hydroxyzine Hcl 25 Mg Tablet PO 25 mg Q8H PRN Administration Itching Dextrose 1,000 mls @ 100 mls/hr 02/05/25 21:36 Dextrose 5% 1,000 Ml IVPB PRN PRN Hypoglycemia Protocol Albumin Human 50 mls @ 999 mls/hr 02/09/25 06:57 Albutein IVPB 03/11/25 06:56 Q10M PRN HYPOTENSION Insulin Aspart 4 - 8 units 02/06/25 08:00 02/23/25 17:41 Insulin Aspart (*Bkc) 100 Units/Ml SUB-Q Not Given TIDWM [facility] Protocol Insulin Aspart 2 - 4 units 02/05/25 21:45 02/22/25 21:14 Insulin Aspart (*Bkc) 100 Units/Ml SUB-Q Not Given HS [facility] Protocol Lisinopril 5 mg 02/16/25 09:00 02/23/25 10:27 Lisinopril 5 Mg Tablet PO 5 mg DAILY MARGUERITE Administration Lorazepam 0.5 mg 02/16/25 15:22 02/16/25 15:44 Lorazepam (*Crx) 0.5 Mg Tablet PO 0.5 mg DAILY PRN Administration Anxiety Multi-Ingred Cream/Lotion/Oil/Oint 1 applic 02/13/25 09:00 02/23/25 14:23 Eucerin Cream 120 Gm Jar TOPICAL 1 applic DAILY MARGUERITE Administration Ondansetron HCl 4 mg 02/05/25 20:41 Ondansetron Inj 4 Mg/2 Ml Vial IV PUSH Q6H PRN Nausea And Vomiting Ondansetron HCl 4 mg 02/22/25 13:15 02/22/25 13:23 Ondansetron Hcl Odt 4 Mg Tablet PO 4 mg Q6H PRN Administration Nausea And Vomiting Pantoprazole Sodium 40 mg 02/14/25 09:00 02/23/25 10:28 Pantoprazole 40 Mg Tablet PO 40 mg DAILY MARGUERITE Administration Radiology Results: ITS Impressions Renal Ultrasound 02/06/25 17:09 IMPRESSION: Right kidney is unremarkable. Left kidney is not visualized. Renal Biopsy CT 02/13/25 10:19 IMPRESSION: 1. Successful CT-guided random left kidney biopsy. Chest X-Ray 02/18/25 12:30 Impression: CHF Central Venous Line 02/18/25 12:38 IMPRESSION: 1. Fluoroscopy utilized during dialysis catheter replacement. See procedure note for further detail. Venous Doppler Study 02/23/25 14:33 Impression: Negative for DVT. Labs Labs: Laboratory Results - last 24 hr 02/22/25 02/23/25 02/23/25 21:00 07:44 11:40 POC Capillary Glucose 182 H 112 H 128 H 02/23/25 16:36 POC Capillary Glucose 160 H
[2025-02-23 14:00] VITALS: BP 136/59; PULSE 76; RESP 20; TEMP 36.4; O2SAT 97
[2025-02-23] MEDS: EUCERIN CREAM 120 GM JAR 1 APPLIC TOPICAL (14:23)
[2025-02-23] MEDS: HYDROcodone/acetaminophen (*CRX) 5-325 MG TABLET 1 TAB PO ×2 (14:23→22:40)
--- NOTE | 2025-02-23 14:54 | P.PNIM_ITS ---
Progress Note: A&P Assessment and Plan (1) CHF (congestive heart failure): Qualifiers: Heart failure type: unspecified Heart failure chronicity: acute Qualified Code(s): I50.9 - Heart failure, unspecified Code(s): I50.9 - Heart failure, unspecified Status: Acute (2) Diabetes: Qualifiers: Diabetes mellitus type: type 2 Diabetes mellitus fpc insulin use: without ocean transportation intermediary use Diabetes mellitus complication status: with kidney complications Diabetes mellitus complication detail: with chronic kidney disease Chronic kidney disease stage: unspecified stage Qualified Code(s): E11.22 - Type 2 diabetes mellitus with diabetic chronic kidney disease Code(s): E11.9 - Type 2 diabetes mellitus without complications Status: Chronic (3) Acute kidney injury: Code(s): N17.9 - Acute kidney failure, unspecified Status: Acute (4) Status post below-knee amputation of left lower extremity: Code(s): Z89.512 - Acquired absence of left leg below knee Status: Acute Plan # CHF (congestive heart failure): Patient originally presented for primary complaint of shortness of breath and right lower extremity swelling (history of left BKA).? CXR showed mild CHF.?Given new onset renal failure related to hypervolemia due to acute renal failure/ESRD and new onset systolic and diastolic CHF BNP greater than 30,000 upon admission on 02/05 Echo showing EF 30-35%, Grade I diastolic dysfunction, mild-mod MR and TR, moderate pHTN. Started Bumex 2 mg b.i.d. IV, now on dialysis HD to control fluid status. Continue GDMT with Coreg, lisinopril. # Acute kidney injury: Admitted for GARRISON. HD cath placed 02/08. Started on HD. 02/12 Kidney biopsy shows chronic injury consistent with a combination of vascular disease, ischemic injury, and diabetic nephropathy. There is no evidence of a superimposed active disease process. 02/13 Renal US: Right kidney is unremarkable. Left kidney is not visualized RUE edema and poor flow from dialysis catheter so HD catheter changed 02/18/2025 nursing project coordinator has arranged for: * Dialysis center set up, [facility] @ [facility] * Pt concerned about transportation to and from dialysis. Jose was given information about [facility] service, encouraged to call on Tuesday Follow. # Diabetes: A1c 8.6% on 02/05/2025. She has been off of her medications for the past 2 years since 2022.? She has not followed with any providers since 2022.? Diabetes complicated by previous diabetic foot infection requiring a left BKA in 2022. The patient's blood glucose was reviewed on 02/18 Glucose remains well controlled. Continue AccuCheks covering with sliding scale. Hypoglycemia protocol available as needed. Continue to follow school vocational educator consulted Dietitian consulted # Hypertension: BP was markedly elevated on admission felt related to fluid overload. Blood pressure better controlled. Will continue to monitor # Anemia: Hgb in 2022 was in the 7 range. Hgb 10.6 on admission but now mostly in 8-9 range. 02/05: Ferritin 17, Iron 29, TIBC 400, %Sat 7. B12/folate normal. Anemia likely secondary to iron deficiency and probably CKD. Treated with venofer 400mg x1 02/06. Repeat irons studies probably a lab error Receiving intermittent Epogen Monitor Hgb and transfuse if <7 to a stable Hgb # Anxiety: Pt having anxiety since being in the hospital. Buspirone 10mg BID PRN on 02/12 Hydroxyzine and Ativan available prn # Elevated TSH: TSH 6.3 with normal FT4. Not on Synthroid. Defer to PCP to repeat thyroid panel when she is well. # Right thigh swelling: rule out dvt. also feels like hematoma. will get veous duplex which came back negative. ct lower ext also ordereed # DVT Prophylaxis - Sq Heparin # Code status - full # disposition: Awaiting placement Subjective Date/time seen: 02/23/25 14:54 Interval history: No overnight events. reprots swelling and pain on the right thigh area, noticed it last evening. no other compalints today. Review of Systems Review of Systems: All systems reviewed & are unremarkable except as noted in HPI and below Exam Narrative: Gen - NARD Chest - bibasilar crackles. Right upper chest tunneled IJ dialysis catheter CV - RRR S1/S2. Abs - soft, obese, NT Ext - left BKA. right great toe amp. Trace RLE edema. Psych - nml mood Skin - warm and dry Objective Data Vital Signs Vital Signs: Vital Signs - 24 hr 02/22/25 20:00 02/22/25 21:01 02/22/25 21:14 Temperature 97.7 F Pulse Rate 74 74 74 Respiratory Rate 16 16 Blood Pressure 123/54 L Pulse Oximetry 98 98 Oxygen Delivery Room Air Fraction of Inspired Oxygen 0 02/23/25 05:15 02/23/25 10:26 02/23/25 14:00 Temperature 97.6 F 97.5 F L Pulse Rate 74 72 76 Respiratory Rate 16 20 Blood Pressure 147/64 H 136/59 L Pulse Oximetry 99 97 Oxygen Delivery Fraction of Inspired Oxygen Intake/Output Intake/Output: Intake & Output 02/20/25 02/21/25 02/22/25 02/23/25 23:59 23:59 23:59 23:59 Intake Total 905 760 480 422 Output Total 4000 3000 Balance -3095 760 -2520 422 Meds/Results Medications: Active Medications Generic Name Dose Route Start Last Admin Trade Name Freq PRN Reason Stop Dose Admin Acetaminophen 650 mg 02/05/25 20:41 02/22/25 08:00 Acetaminophen 325 Mg Tablet PO 650 mg Q4H PRN Administration Mild Pain (1-5) Or Fever Hydrocodone Bitart/Acetaminophen 1 tab 02/19/25 07:13 02/23/25 14:23 Hydrocodone/Acetaminophen (*Crx) 5-325 Mg Tablet PO 1 tab Q6H PRN Administration Pain Rated 6 or Greater Alteplase, Recombinant 2 mg 02/16/25 09:21 02/16/25 09:30 Alteplase 2 Mg Vial (Cathflo) IV PUSH 2 mg ONCE PRN Administration Line Occlusion Alteplase, Recombinant 2 mg 02/16/25 09:24 02/16/25 09:30 Alteplase 2 Mg Vial (Cathflo) IV PUSH 2 mg ONCE PRN Administration Line Occlusion Bumetanide 2 mg 02/17/25 09:00 02/23/25 10:26 Bumetanide 1 Mg Tablet PO 2 mg SuTuThSa MARGUERITE Administration Buspirone HCl 10 mg 02/10/25 12:43 02/22/25 08:00 Buspirone Hcl 10 Mg Tablet PO 10 mg BID PRN Administration Anxiety Carvedilol 25 mg 02/11/25 21:00 02/23/25 10:26 Carvedilol 25 Mg Tablet PO 25 mg Q12HR MARUGERITE Administration Dextrose 12.5 gm 02/05/25 21:36 Dextrose 50% 25 Gm/50 Ml Syringe IV PUSH PRN PRN Hypoglycemia Protocol Ergocalciferol 1,250 mcg 02/15/25 09:00 02/22/25 07:59 Ergocalciferol (Vitamin D2) 1,250 Mcg (50,000 Units) Capsule PO 1,250 mcg WEEKLY MARGUERITE Administration Escitalopram Oxalate 10 mg 02/14/25 07:00 02/23/25 10:27 Escitalopram Oxalate 10 Mg Tablet PO 10 mg DAILY MARGUERITE Administration Glucagon 1 mg 02/05/25 21:36 Glucagon For Inj 1 Mg Vial IM PRN PRN Hypoglycemia Protocol Glucose 15 gm 02/05/25 21:36 Glucose Oral Gel 15 Gm Of Glucse In 37.5 Gm Tube PO PRN PRN Hypoglycemia Protocol Heparin Sodium (Porcine) 1,000 units 02/11/25 11:47 02/11/25 12:03 Heparin Sodium 1,000 Units/Ml Vial IV PUSH 1,000 units Q1H PRN Administration DIALYSIS Heparin Sodium (Porcine) 5,000 units 02/19/25 09:00 02/23/25 10:27 Heparin Sodium 5,000 Units/Ml Vial SUB-Q 5,000 units Q12HR MARGUERITE Administration Hydroxyzine HCl 25 mg 02/16/25 12:22 02/19/25 20:46 Hydroxyzine Hcl 25 Mg Tablet PO 25 mg Q8H PRN Administration Itching Dextrose 1,000 mls @ 100 mls/hr 02/05/25 21:36 Dextrose 5% 1,000 Ml IVPB PRN PRN Hypoglycemia Protocol Albumin Human 50 mls @ 999 mls/hr 02/09/25 06:57 Albutein IVPB 03/11/25 06:56 Q10M PRN HYPOTENSION Insulin Aspart 4 - 8 units 02/06/25 08:00 02/23/25 14:06 Insulin Aspart (*Bkc) 100 Units/Ml SUB-Q Not Given TIDWM MARGUERITE Protocol Insulin Aspart 2 - 4 units 02/05/25 21:45 02/22/25 21:14 Insulin Aspart (*Bkc) 100 Units/Ml SUB-Q Not Given HS MARGUERITE Protocol Lisinopril 5 mg 02/16/25 09:00 02/23/25 10:27 Lisinopril 5 Mg Tablet PO 5 mg DAILY MARGUERITE Administration Lorazepam 0.5 mg 02/16/25 15:22 02/16/25 15:44 Lorazepam (*Crx) 0.5 Mg Tablet PO 0.5 mg DAILY PRN Administration Anxiety Multi-Ingred Cream/Lotion/Oil/Oint 1 applic 02/13/25 09:00 02/23/25 14:23 Eucerin Cream 120 Gm Jar TOPICAL 1 applic DAILY MARGUERITE Administration Ondansetron HCl 4 mg 02/05/25 20:41 Ondansetron Inj 4 Mg/2 Ml Vial IV PUSH Q6H PRN Nausea And Vomiting Ondansetron HCl 4 mg 02/22/25 13:15 02/22/25 13:23 Ondansetron Hcl Odt 4 Mg Tablet PO 4 mg Q6H PRN Administration Nausea And Vomiting Pantoprazole Sodium 40 mg 02/14/25 09:00 02/23/25 10:28 Pantoprazole 40 Mg Tablet PO 40 mg DAILY MARGUERITE Administration Radiology Results: ITS Impressions Renal Ultrasound 02/06/25 17:09 IMPRESSION: Right kidney is unremarkable. Left kidney is not visualized. Renal Biopsy CT 02/13/25 10:19 IMPRESSION: 1. Successful CT-guided random left kidney biopsy. Chest X-Ray 02/18/25 12:30 Impression: CHF Central Venous Line 02/18/25 12:38 IMPRESSION: 1. Fluoroscopy utilized during dialysis catheter replacement. See procedure note for further detail. Venous Doppler Study 02/23/25 14:33 Impression: Negative for DVT. Labs Labs: Laboratory Results - last 24 hr 02/22/25 02/22/25 02/23/25 16:42 21:00 07:44 POC Capillary Glucose 129 H 182 H 112 H 02/23/25 11:40 POC Capillary Glucose 128 H
[2025-02-23 20:00] VITALS: O2SAT 100
[2025-02-23 21:32] VITALS: BP 148/63; PULSE 74; RESP 16; TEMP 36.4; O2SAT 100
[2025-02-23 22:40] VITALS: PULSE 70
--- NOTE | 2025-02-24 02:00 | PC.NURSE ---
Daylight Savings Time For Daylight Savings Time Ending in the Fall - Clocks are moved back. For Daylight Savings Time Beginning in the Spring - Clocks are moved ahead. For [facility], the time of change occurs at 0200 hrs. Time is taken from the windows server support technician. This entry on the patient's chart recognizes the change in time reflected during documentation. Example: 2 entries for vital signs may be charted for 0200 hrs.
[2025-02-24] MEDS: HYDROcodone/acetaminophen (*CRX) 5-325 MG TABLET 1 TAB PO (03:59)
[2025-02-24 05:13] LABS: Hematocrit 30.7 % (37.0-47.0); Hemoglobin 8.9 g/dL (12.0-15.0); Immature Granulocyte Percent A 0.3 % (0-0.5); Lymphocytes Absolute Auto 2.09 K/mm3 (0.9-3.2); Mean Corpuscular HGB Conc 29.0 g/dl (32-36); Mean Corpuscular Hemoglobin 24.1 pg (26-34); Mean Corpuscular Volume 83.2 fl (80-100); Nucleated Red Blood Cells Absolute Auto 0.000 K/mm3 (0.0-0.012); Nucleated Red Blood Cells Perc 0.0 % (0.0-0.2); Platelet Count Result 696 k/mm3 (150-375); Red Blood Count 3.69 M/mm3 (4.2-5.4); White Blood Count 9.2 K/mm3 (4.5-10.0)
[2025-02-24 05:20] LABS: Alanine Aminotransferase 6 U/L (6-35); Albumin Level 3.2 g/dL (3.5-5.1); Alkaline Phosphatase 105 U/L (38-126); Anion Gap 5 mmol/L (4-12); Aspartate Amino Transferase 16 U/L (14-36); Bilirubin,Total 0.5 mg/dL (0.2-1.3); Blood Urea Nitrogen 30 mg/dL (7-17); Calcium 8.5 mg/dL (8.4-10.2); Carbon Dioxide 31 mmol/L (22-30); Chloride 99 mmol/L (98-107); Estimated CRCL calculation 17 ml/min; Estimated Glomerular Filt Rate 10; Glucose 120 mg/dL (65-110); Magnesium 2.3 mg/dL (1.6-2.3); Potassium 3.8 mmol/L (3.4-5.0); Sodium 135 mmol/L (137-145); Total Protein 6.3 g/dL (6.3-8.2)
[2025-02-24 06:00] LABS: Anisocytosis 1+; Hypochromasia 1+; Poikilocytosis 1+; Target Cells 1+
[2025-02-24 06:01] LABS: Burr Cells 1+; Microcytosis 1+ (NORMAL); Ovalocytes 1+; Schistocytes Rare
[2025-02-24 07:03] VITALS: BP 152/64; PULSE 73; RESP 16; TEMP 36.4; O2SAT 99
[2025-02-24 08:37] VITALS: BP 121/50; PULSE 72; O2SAT 98
[2025-02-24] MEDS: BUMETANIDE 1 MG TABLET 2 MG PO (08:41)
[2025-02-24 08:42] VITALS: PULSE 72
[2025-02-24] MEDS: EUCERIN CREAM 120 GM JAR 1 APPLIC TOPICAL (08:42)
[2025-02-24] MEDS: ESCITALOPRAM OXALATE 10 MG TABLET PO (08:42)
[2025-02-24] MEDS: PANTOPRAZOLE 40 MG TABLET PO (08:43)
--- NOTE | 2025-02-24 12:35 | PM.IMPN ---
Progress Note: A&P Assessment and Plan (1) Acute kidney injury: Code(s): N17.9 - Acute kidney failure, unspecified Status: Acute Assessment and Plan: Admitted for GARRISON. HD cath placed 02/08. Started on HD. 02/12 Kidney biopsy shows chronic injury consistent with a combination of vascular disease, ischemic injury, and diabetic nephropathy. There is no evidence of a superimposed active disease process. 02/13 Renal US: Right kidney is unremarkable. Left kidney is not visualized RUE edema and poor flow from dialysis catheter so HD catheter changed 02/18/2025 Tolerating dialysis well (2) CHF (congestive heart failure): Qualifiers: Heart failure type: unspecified Heart failure chronicity: acute Qualified Code(s): I50.9 - Heart failure, unspecified Code(s): I50.9 - Heart failure, unspecified Status: Acute Assessment and Plan: Patient originally presented for primary complaint of shortness of breath and right lower extremity swelling (history of left BKA).? CXR showed mild CHF.?Given new onset renal failure related to hypervolemia due to acute renal failure/ESRD and new onset systolic and diastolic CHF BNP greater than 30,000 upon admission on 02/05 Echo showing EF 30-35%, Grade I diastolic dysfunction, mild-mod MR and TR, moderate pHTN. Started Bumex 2 mg b.i.d. IV, now on dialysis HD to control fluid status. Continue GDMT with Coreg, lisinopril. Cardiology has consulted and will f/u as outpatient (3) Diabetes: Qualifiers: Diabetes mellitus type: type 2 Diabetes mellitus buttermaker insulin use: without group home use Diabetes mellitus complication status: with kidney complications Diabetes mellitus complication detail: with chronic kidney disease Chronic kidney disease stage: unspecified stage Qualified Code(s): E11.22 - Type 2 diabetes mellitus with diabetic chronic kidney disease Code(s): E11.9 - Type 2 diabetes mellitus without complications Status: Chronic Assessment and Plan: A1c 8.6% on 02/05/2025. She has been off of her medications for the past 2 years since 2022.? She has not followed with any providers since 2022.? Diabetes complicated by previous diabetic foot infection requiring a left BKA in 2022. The patient's blood glucose was reviewed on 02/18 Glucose remains well controlled. Continue AccuCheks covering with sliding scale. Hypoglycemia protocol available as needed. FBS 113 securities adviser and labor relations consultant consulted (4) Hypertension: Qualifiers: Hypertension type: primary hypertension Qualified Code(s): I10 - Essential (primary) hypertension Code(s): I10 - Essential (primary) hypertension Status: Acute Assessment and Plan: # Hypertension: BP was markedly elevated on admission felt related to fluid overload. Blood pressure better controlled. (5) Anemia: Qualifiers: Anemia type: due to chronic kidney disease Chronic kidney disease stage: unspecified stage Qualified Code(s): N18.9 - Chronic kidney disease, unspecified; D63.1 - Anemia in chronic kidney disease Code(s): D64.9 - Anemia, unspecified Status: Acute Assessment and Plan: Hgb in 2022 was in the 7 range. Hgb 10.6 on admission but now mostly in 8-9 range. 02/05: Ferritin 17, Iron 29, TIBC 400, %Sat 7. B12/folate normal. Anemia likely secondary to iron deficiency and CKD. Treated with venofer 400mg x1 02/06. Receiving intermittent Epogen (6) Status post below-knee amputation of left lower extremity: Code(s): Z89.512 - Acquired absence of left leg below knee Status: Acute Subjective Date/time seen: 02/24/25 12:35 Interval history: Tolerating diet. Denied chest pain shortness of breath abdominal pain or nausea or bleeding. At this time her main concern is her taking time off to care for children while she was in rehab and then not having anyone to care for the children if her dialysis is done on Tuesday, as she needs to coordinate the dialysis schedule with her children's school schedule. Review of Systems Review of Systems: All systems reviewed & are unremarkable except as noted in HPI and below Exam Narrative: HEENT: PERRL, sclerae nonicteric, pharyngeal mucosa pink and intact NECK: No JVD, adenopathy, or thyromegaly CHEST: Clear to auscultation. Normal effort HEART: NL S1/S2, regular, no murmur ABDOMEN: BS+, soft, nontender, no mass, no bruits EXTREMITIES: No cyanosis, edema, or clubbing NEUROLOGIC: CN intact and symmetric to inspection. MUSCULOSKELETAL: Right BKA and left great toe amputation noted PSYCH: Alert. Oriented to person, place, and time Objective Data Vital Signs Vital Signs: Vital Signs - 24 hr 02/23/25 14:00 02/23/25 20:00 02/23/25 21:32 Temperature 97.5 F L 97.6 F Pulse Rate 76 74 Respiratory Rate 20 16 Blood Pressure 136/59 L 148/63 H Pulse Oximetry 97 100 100 Oxygen Delivery Room Air 02/23/25 22:40 02/24/25 07:03 02/24/25 08:37 Temperature 97.6 F Pulse Rate 70 73 72 Respiratory Rate 16 Blood Pressure 152/64 H 121/50 L Pulse Oximetry 99 98 Oxygen Delivery 02/24/25 08:42 Temperature Pulse Rate 72 Respiratory Rate Blood Pressure Pulse Oximetry Oxygen Delivery Intake/Output Intake/Output: Intake & Output 02/21/25 02/22/25 02/23/25 02/24/25 23:59 23:59 23:59 22:59 Intake Total 760 480 662 320 Output Total 3000 1400 1400 Balance 760 -2520 -738 -1080 Meds/Results Medications: Active Medications Generic Name Dose Route Start Last Admin Trade Name Benq PRN Reason Stop Dose Admin Acetaminophen 650 mg 02/05/25 20:41 02/22/25 08:00 Acetaminophen 325 Mg Tablet PO 650 mg Q4H PRN Administration Mild Pain (1-5) Or Fever Hydrocodone Bitart/Acetaminophen 1 tab 02/19/25 07:13 02/24/25 03:59 Hydrocodone/Acetaminophen (*Crx) 5-325 Mg Tablet PO 1 tab Q6H PRN Administration Pain Rated 6 or Greater Alteplase, Recombinant 2 mg 02/16/25 09:21 02/16/25 09:30 Alteplase 2 Mg Vial (Cathflo) IV PUSH 2 mg ONCE PRN Administration Line Occlusion Alteplase, Recombinant 2 mg 02/16/25 09:24 02/16/25 09:30 Alteplase 2 Mg Vial (Cathflo) IV PUSH 2 mg ONCE PRN Administration Line Occlusion Bumetanide 2 mg 02/17/25 09:00 02/24/25 08:41 Bumetanide 1 Mg Tablet PO 2 mg SuTuThSa MARGUERITE Administration Buspirone HCl 10 mg 02/10/25 12:43 02/23/25 17:37 Buspirone Hcl 10 Mg Tablet PO 10 mg BID PRN Administration Anxiety Carvedilol 25 mg 10/20/25 21:00 02/24/25 08:42 Carvedilol 25 Mg Tablet PO 25 mg Q12HR MARGUERITE Administration Dextrose 12.5 gm 02/05/25 21:36 Dextrose 50% 25 Gm/50 Ml Syringe IV PUSH PRN PRN Hypoglycemia Protocol Ergocalciferol 1,250 mcg 02/15/25 09:00 02/22/25 07:59 Ergocalciferol (Vitamin D2) 1,250 Mcg (50,000 Units) Capsule PO 1,250 mcg WEEKLY MARGUERITE Administration Escitalopram Oxalate 10 mg 02/14/25 07:00 02/24/25 08:42 Escitalopram Oxalate 10 Mg Tablet PO 10 mg DAILY MARGUERITE Administration Glucagon 1 mg 02/05/25 21:36 Glucagon For Inj 1 Mg Vial IM PRN PRN Hypoglycemia Protocol Glucose 15 gm 02/05/25 21:36 Glucose Oral Gel 15 Gm Of Glucse In 37.5 Gm Tube PO PRN PRN Hypoglycemia Protocol Heparin Sodium (Porcine) 1,000 units 02/11/25 11:47 02/11/25 12:03 Heparin Sodium 1,000 Units/Ml Vial IV PUSH 1,000 units Q1H PRN Administration DIALYSIS Heparin Sodium (Porcine) 5,000 units 02/19/25 09:00 02/24/25 08:42 Heparin Sodium 5,000 Units/Ml Vial SUB-Q 5,000 units Q12HR MARGUERITE Administration Hydroxyzine HCl 25 mg 02/16/25 12:22 02/19/25 20:46 Hydroxyzine Hcl 25 Mg Tablet PO 25 mg Q8H PRN Administration Itching Dextrose 1,000 mls @ 100 mls/hr 02/05/25 21:36 Dextrose 5% 1,000 Ml IVPB PRN PRN Hypoglycemia Protocol Albumin Human 50 mls @ 999 mls/hr 02/09/25 06:57 Albutein IVPB 03/11/25 06:56 Q10M PRN HYPOTENSION Insulin Aspart 4 - 8 units 02/06/25 08:00 02/24/25 08:34 Insulin Aspart (*Bkc) 100 Units/Ml SUB-Q Not Given TIDWM MARGUERITE Protocol Insulin Aspart 2 - 4 units 02/05/25 21:45 02/23/25 22:42 Insulin Aspart (*Bkc) 100 Units/Ml SUB-Q Not Given HS MARGUERITE Protocol Lisinopril 5 mg 02/16/25 09:00 02/24/25 08:42 Lisinopril 5 Mg Tablet PO 5 mg DAILY MARGUERITE Administration Lorazepam 0.5 mg 02/16/25 15:22 02/16/25 15:44 Lorazepam (*Crx) 0.5 Mg Tablet PO 0.5 mg DAILY PRN Administration Anxiety Multi-Ingred Cream/Lotion/Oil/Oint 1 applic 02/13/25 09:00 02/24/25 08:42 Eucerin Cream 120 Gm Jar TOPICAL 1 applic DAILY MARGUERITE Administration Ondansetron HCl 4 mg 02/05/25 20:41 Ondansetron Inj 4 Mg/2 Ml Vial IV PUSH Q6H PRN Nausea And Vomiting Ondansetron HCl 4 mg 02/22/25 13:15 02/22/25 13:23 Ondansetron Hcl Odt 4 Mg Tablet PO 4 mg Q6H PRN Administration Nausea And Vomiting Pantoprazole Sodium 40 mg 02/14/25 09:00 02/24/25 08:43 Pantoprazole 40 Mg Tablet PO 40 mg DAILY MARGUERITE Administration Radiology Results: ITS Impressions Renal Ultrasound 02/06/25 17:09 IMPRESSION: Right kidney is unremarkable. Left kidney is not visualized. Renal Biopsy CT 02/13/25 10:19 IMPRESSION: 1. Successful CT-guided random left kidney biopsy. Chest X-Ray 02/18/25 12:30 Impression: CHF Central Venous Line 02/18/25 12:38 IMPRESSION: 1. Fluoroscopy utilized during dialysis catheter replacement. See procedure note for further detail. Venous Doppler Study 02/23/25 14:33 Impression: Negative for DVT. Labs Labs: Laboratory Results - last 24 hr 02/23/25 02/23/25 02/24/25 16:36 21:28 04:52 WBC 9.2 RBC 3.69 L Hgb 8.9 L Hct 30.7 L MCV 83.2 MCH 24.1 L MCHC 29.0 L RDW 21.3 H Plt Count 696 H MPV 9.3 Immature Gran % (Auto) 0.3 Neut % (Auto) 52.8 Lymph % (Auto) 22.7 [place] % (Auto) 16.5 H Eos % (Auto) 6.8 H Baso % (Auto) 0.9 Lymph # (Auto) 2.09 [place] # (Auto) 1.5 H Eos # (Auto) 0.6 H Baso # (Auto) 0.1 Abs Immat Gran (auto) 0.03 Absolute Neuts (auto) 4.9 Absolute Nucleated RBC 0.000 Band Neutrophils % Not Reportable Nucleated RBC % 0.0 Platelet Estimate Increased Hypochromasia 1+ Poikilocytosis 1+ Anisocytosis 1+ Microcytosis 1+ Target Cells 1+ Ovalocytes 1+ Greg Cells 1+ Schistocytes Rare Sodium 135 L Potassium 3.8 Chloride 99 Carbon Dioxide 31 H Anion Gap 5 BUN 30 H Creatinine 4.78 H Estim Creat Clear Calc 17 Estimated GFR 10 L Glucose 120 H POC Capillary Glucose 160 H 171 H Calcium 8.5 Magnesium 2.3 Total Bilirubin 0.5 AST 16 ALT 6 Alkaline Phosphatase 105 Total Protein 6.3 Albumin 3.2 L 02/24/25 02/24/25 08:06 12:17 WBC RBC Hgb Hct MCV MCH MCHC RDW Plt Count MPV Immature Gran % (Auto) Neut % (Auto) Lymph % (Auto) [place] % (Auto) Eos % (Auto) Baso % (Auto) Lymph # (Auto) [place] # (Auto) Eos # (Auto) Baso # (Auto) Abs Immat Gran (auto) Absolute Neuts (auto) Absolute Nucleated RBC Band Neutrophils % Nucleated RBC % Platelet Estimate Hypochromasia Poikilocytosis Anisocytosis Microcytosis Target Cells Ovalocytes [place] Cells Schistocytes Sodium Potassium Chloride Carbon Dioxide Anion Gap BUN Creatinine Estim Creat Clear Calc Estimated GFR Glucose POC Capillary Glucose 113 H 166 H Calcium Magnesium Total Bilirubin AST ALT Alkaline Phosphatase Total Protein Albumin
[2025-02-24 14:00] VITALS: BP 128/58; PULSE 74; RESP 16; TEMP 36.6; O2SAT 97
[2025-02-24] MEDS: INSULIN ASPART (*BKC) 100 UNITS/ML SUB-Q (17:38)
[2025-02-24 21:55] VITALS: BP 153/63; PULSE 78; RESP 16; TEMP 36.6; O2SAT 98
[2025-02-24 21:56] VITALS: PULSE 78
[2025-02-25] VITALS (22 sets, daily range): BP systolic 138–184; BP diastolic 57–111; PULSE 71–79; RESP 16–20; TEMP 36–37; O2SAT 98–100
--- NOTE | 2025-02-25 09:55 | P.PNNP_ITS ---
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 - findings consistent with ischemic injury, vascular disease and diabetes - severe/diffuse interstitial fibrosis and tubular atrophy (~ 90%) * renal biopsy findings likely explains presentation: * volume overload * anasarca * metabolic acidosis * anemia * evaluation since admission already noted: * urine electrolytes non-prerenal * UA with blood and protein * CPK mildly elevated but not enough to affect kidney function * renal ultrasound okay (unable to visualize left kidney) * nephrotic range proteinuria noted (> 10 grams) * negative serological evaluation to date * elevated CRP and ESR noted * no significant improvement with IV diuretic therapy * s/p HD catheter placement on 02/08 * 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/08 * s/p daily HD/DUF for clearance and fluid removal * s/p new RIJ HD catheter placed (on 02/18) due previous dysfunctional HD cathether * HD today * continue M/W/F dialysis schedule as this will be her outpatient schedule (2) Volume overload: Code(s): E87.70 - Fluid overload, unspecified Status: Acute Assessment and Plan: * slow improvement * as noted by clinical exam (anasarca) * multifactorial etiology: * renal dysfunction * nephrotic range proteinuria/nephrotic syndrome * cardiomyopathy * vascular disease * no real improvement with previous IV diuretics on admission * however, still making some urine with diuretics * continue oral bumex of non-dialysis days * continue fluid removal with HD/DUF as tolerated * almost 27L negative since admission.... (3) Metabolic acidosis: Code(s): E87.20 - Acidosis, unspecified Status: Acute Assessment and Plan: * resolved (4) Cardiomyopathy: Code(s): I42.9 - Cardiomyopathy, unspecified Status: Acute Assessment and Plan: * acute versus chronic? * ischemic versus non-ischemic? * Echo results noted (02/06): * left ventricular systolic function is severely reduced, estimated at 30 - 35% * left ventricular diastolic function is grade I diastolic dysfunction * mild to moderate mitral valve regurgitation * mild to moderate tricuspid valve regurgitation * moderate pulmonary hypertension, estimated pulmonary arterial systolic pressure is 47 mmHg * mild pulmonic regurgitation * Cardiology following * GMDT maybe somewhat limited by her severe renal dysfunction * started low dose lisinopril along with carvedilol * would not be opposed to use of Entresto if BP can tolerate... (5) Hypertension: Qualifiers: Hypertension type: primary hypertension Qualified Code(s): I10 - Essential (primary) hypertension Code(s): I10 - Essential (primary) hypertension Status: Acute Assessment and Plan: * quite elevated on ER presentation (systolic BP > 200) * better control in general * on low dose lisinopril - titrate as needed * continue carvedilol * continue dialysis/fluid removal * follow trend of hemodynamics (6) Anemia: Qualifiers: Anemia type: due to chronic kidney disease Chronic kidney disease stage: unspecified stage Qualified Code(s): N18.9 - Chronic kidney disease, unspecified; D63.1 - Anemia in chronic kidney disease Code(s): D64.9 - Anemia, unspecified Status: Acute Assessment and Plan: * at least partly related to renal dysfunction * anemia studies demonstrate iron deficiency * s/p IV iron * Epogen with HD * follow trend of H/H (7) Renal osteodystrophy: Code(s): N25.0 - Renal osteodystrophy Status: Acute Assessment and Plan: * calcium and phosphorus stable * Vitamin D low -- on ergocalciferol * PTH in range (8) Diabetes: Qualifiers: Diabetes mellitus type: type 2 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 Will continue to follow. Subjective Date/time seen: 02/25/25 09:55 Interval history: Follow-up for newly diagnosed end stage renal disease. Tolerating dialysis treatment at the time of my visit (seen on HD at 09:45am); resting comfortably when seen; on/off issues with urinary retention noted; otherwise; no apparent distress voiced. Exam Narrative: General: WD/WN female in NAD Heart: normal S1 and S2; no rub Lungs: decreased at the bases Abdomen: obese but soft, nontender, nondistended, positive bowel sounds Extremities: no cyanosis or clubbing; trace edema in RLE and BUEs; s/p left BKA Skin: no nodules Objective Data Vital Signs Vital Signs: Vital Signs Temp Pulse Resp BP Pulse Ox 02/25/25 09:45 74 160/78 H 02/25/25 09:30 74 158/75 H 02/25/25 09:15 75 155/74 H 02/25/25 09:00 74 158/75 H 02/25/25 08:37 76 165/76 H 02/25/25 08:30 97.7 F 77 16 164/72 H 100 02/25/25 06:57 97.6 F 78 16 167/66 H 98 02/24/25 21:56 78 02/24/25 21:55 97.9 F 78 16 153/63 H 98 02/24/25 14:00 97.8 F 74 16 128/58 L 97 Intake/Output Intake/Output: Intake & Output 02/22/25 02/23/25 02/24/25 02/25/25 23:59 23:59 22:59 23:59 Intake Total 480 662 782 590 Output Total 3000 1400 1400 275 [facility] [phone] Meds/Results Medications: Active Medications Generic Name Dose Route Start Last Admin Trade Name Freq PRN Reason Stop Dose Admin Acetaminophen 650 mg 02/05/25 20:41 02/22/25 08:00 Acetaminophen 325 Mg Tablet PO 650 mg Q4H PRN Administration Mild Pain (1-5) Or Fever Hydrocodone Bitart/Acetaminophen 1 tab 02/19/25 07:13 02/24/25 03:59 Hydrocodone/Acetaminophen (*Crx) 5-325 Mg Tablet PO 1 tab Q6H PRN Administration Pain Rated 6 or Greater Alteplase, Recombinant 2 mg 02/16/25 09:21 02/16/25 09:30 Alteplase 2 Mg Vial (Cathflo) IV PUSH 2 mg ONCE PRN Administration Line Occlusion Alteplase, Recombinant 2 mg 02/16/25 09:24 02/16/25 09:30 Alteplase 2 Mg Vial (Cathflo) IV PUSH 2 mg ONCE PRN Administration Line Occlusion Bumetanide 2 mg 02/17/25 09:00 02/24/25 08:41 Bumetanide 1 Mg Tablet PO 2 mg SuTuThSa MARGUERITE Administration Buspirone HCl 10 mg 02/10/25 12:43 02/23/25 17:37 Buspirone Hcl 10 Mg Tablet PO 10 mg BID PRN Administration Anxiety Carvedilol 25 mg 02/11/25 21:00 02/24/25 21:56 Carvedilol 25 Mg Tablet PO 25 mg Q12HR MARGUERITE Administration Dextrose 12.5 gm 02/05/25 21:36 Dextrose 50% 25 Gm/50 Ml Syringe IV PUSH PRN PRN Hypoglycemia Protocol Epoetin Sergio-epbx 10,000 units 02/25/25 17:40 02/25/25 10:29 Epoetin Sergio-Epbx 10,000 Units/Ml Vial IV PUSH 02/25/25 17:41 10,000 units ONCE ONE Administration Ergocalciferol 1,250 mcg 02/15/25 09:00 02/22/25 07:59 Ergocalciferol (Vitamin D2) 1,250 Mcg (50,000 Units) Capsule PO 1,250 mcg WEEKLY MARGUERITE Administration Escitalopram Oxalate 10 mg 02/14/25 07:00 02/24/25 08:42 Escitalopram Oxalate 10 Mg Tablet PO 10 mg DAILY MARGUERITE Administration Glucagon 1 mg 02/05/25 21:36 Glucagon For Inj 1 Mg Vial IM PRN PRN Hypoglycemia Protocol Glucose 15 gm 02/05/25 21:36 Glucose Oral Gel 15 Gm Of Glucse In 37.5 Gm Tube PO PRN PRN Hypoglycemia Protocol Heparin Sodium (Porcine) 1,000 units 02/11/25 11:47 02/11/25 12:03 Heparin Sodium 1,000 Units/Ml Vial IV PUSH 1,000 units Q1H PRN Administration DIALYSIS Heparin Sodium (Porcine) 5,000 units 02/19/25 09:00 02/24/25 21:57 Heparin Sodium 5,000 Units/Ml Vial SUB-Q 5,000 units Q12HR MARGUERITE Administration Hydroxyzine HCl 25 mg 02/16/25 12:22 02/19/25 20:46 Hydroxyzine Hcl 25 Mg Tablet PO 25 mg Q8H PRN Administration Itching Dextrose 1,000 mls @ 100 mls/hr 02/05/25 21:36 Dextrose 5% 1,000 Ml IVPB PRN PRN Hypoglycemia Protocol Albumin Human 50 mls @ 999 mls/hr 02/09/25 06:57 Albutein IVPB 03/11/25 06:56 Q10M PRN HYPOTENSION Insulin Aspart 4 - 8 units 02/06/25 08:00 02/24/25 17:38 Insulin Aspart (*Bkc) 100 Units/Ml SUB-Q 4 units TIDWM MARGUERITE Administration Protocol Insulin Aspart 2 - 4 units 02/05/25 21:45 02/24/25 21:59 Insulin Aspart (*Bkc) 100 Units/Ml SUB-Q Not Given HS MARGUERITE Protocol Lisinopril 5 mg 02/16/25 09:00 02/24/25 08:42 Lisinopril 5 Mg Tablet PO 5 mg DAILY MARGUERITE Administration Lorazepam 0.5 mg 02/16/25 15:22 02/16/25 15:44 Lorazepam (*Crx) 0.5 Mg Tablet PO 0.5 mg DAILY PRN Administration Anxiety Multi-Ingred Cream/Lotion/Oil/Oint 1 applic 02/13/25 09:00 02/24/25 08:42 Eucerin Cream 120 Gm Jar TOPICAL 1 applic DAILY MARGUERITE Administration Ondansetron HCl 4 mg 02/05/25 20:41 Ondansetron Inj 4 Mg/2 Ml Vial IV PUSH Q6H PRN Nausea And Vomiting Ondansetron HCl 4 mg 02/22/25 13:15 02/22/25 13:23 Ondansetron Hcl Odt 4 Mg Tablet PO 4 mg Q6H PRN Administration Nausea And Vomiting Pantoprazole Sodium 40 mg 02/14/25 09:00 02/24/25 08:43 Pantoprazole 40 Mg Tablet PO 40 mg DAILY MARGUERITE Administration Radiology Results: ITS Impressions Renal Ultrasound 02/06/25 17:09 IMPRESSION: Right kidney is unremarkable. Left kidney is not visualized. Renal Biopsy CT 02/13/25 10:19 IMPRESSION: 1. Successful CT-guided random left kidney biopsy. Chest X-Ray 02/18/25 12:30 Impression: CHF Central Venous Line 02/18/25 12:38 IMPRESSION: 1. Fluoroscopy utilized during dialysis catheter replacement. See procedure note for further detail. Venous Doppler Study 02/23/25 14:33 Impression: Negative for DVT. Femur CT 02/25/25 08:26 IMPRESSION: 1. Diffuse edema of the subcutaneous fat. No abscess. 2. Mild polyarticular osteoarthritis. 3. Markedly distended bladder. Labs Labs: Laboratory Results - last 24 hr 02/24/25 02/24/25 02/24/25 12:17 17:00 21:52 POC Capillary Glucose 166 H 204 H 143 H 02/25/25 07:38 POC Capillary Glucose 121 H
[2025-02-25] MEDS: EPOETIN ALFA-EPBX 10,000 UNITS/ML VIAL 10000 UNITS IV PUSH (10:29)
--- NOTE | 2025-02-25 11:39 | PCNWS ---
Weekly nutritional screen. Patient is tolerating current Renal diet with adequate intake, 50-100% meals. No weight loss reported. No nutritional needs at this time.
--- NOTE | 2025-02-25 11:47 | P.PNIM_ITS ---
Progress Note: A&P Assessment and Plan (1) Acute kidney injury: Code(s): N17.9 - Acute kidney failure, unspecified Status: Acute Assessment and Plan: Admitted for GARRISON. HD cath placed 02/08. Started on HD. 02/12 Kidney biopsy shows chronic injury consistent with a combination of vascular disease, ischemic injury, and diabetic nephropathy. There is no evidence of a superimposed active disease p rocess. 02/13 Renal US: Right kidney is unremarkable. Left kidney is not visualized RUE edema and poor flow from dialysis catheter so HD catheter changed 02/18/2025 Tolerating dialysis well Awaiting Nephrology clearance for discharge (2) CHF (congestive heart failure): Qualifiers: Heart failure type: unspecified Heart failure chronicity: acute Qualified Code(s): I50.9 - Heart failure, unspecified Code(s): I50.9 - Heart failure, unspecified Status: Acute Assessment and Plan: Patient originally presented for primary complaint of shortness of breath and right lower extremity swelling (history of left BKA).? CXR showed mild CHF.?Given new onset renal failure related to hypervolemia due to acute renal failure/ESRD and new onset systolic and diastolic CHF BNP greater than 30,000 upon admission on 02/05 Echo showing EF 30-35%, Grade I diastolic dysfunction, mild-mod MR and TR, moderate pHTN. Started Bumex 2 mg b.i.d. IV, now on dialysis HD to control fluid status. Continue GDMT with Coreg, lisinopril. 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 She has been off of her medications for the past 2 years since 2022.? She has not followed with any providers since 2022.? Diabetes complicated by previous diabetic foot infection requiring a left BKA in 2022. The patient's blood glucose was reviewed on 02/18 Glucose remains well controlled. Continue AccuCheks covering with sliding scale. Hypoglycemia protocol available as needed. FBS 113 family educator and electric motor control assembler consulted (4) Hypertension: Qualifiers: Hypertension type: primary hypertension Qualified Code(s): I10 - Essential (primary) hypertension Code(s): I10 - Essential (primary) hypertension Status: Acute Assessment and Plan: # Hypertension: BP was markedly elevated on admission felt related to fluid overload. Blood pressure better controlled. (5) Anemia: Qualifiers: Anemia type: due to chronic kidney disease Chronic kidney disease stage: unspecified stage Qualified Code(s): N18.9 - Chronic kidney disease, unspecified; D63.1 - Anemia in chronic kidney disease Code(s): D64.9 - Anemia, unspecified Status: Acute Assessment and Plan: Hgb in 2022 was in the 7 range. Hgb 10.6 on admission but now mostly in 8-9 range. 02/05: Ferritin 17, Iron 29, TIBC 400, %Sat 7. B12/folate normal. Anemia likely secondary to iron deficiency and CKD. Treated with venofer 600mg x1 02/06. Receiving intermittent Epogen (6) Status post below-knee amputation of left lower extremity: Code(s): Z89.512 - Acquired absence of left leg below knee Status: Acute Plan DVT prophylaxis on heparin Awaiting placement Subjective Date/time seen: 02/25/25 11:47 Interval history: Comfortable at bedside, awaiting placement Review of Systems Review of Systems: All systems reviewed & are unremarkable except as noted in HPI and below Exam Narrative: HEENT: PERRL, sclerae nonicteric, pharyngeal mucosa pink and intact NECK: No JVD, adenopathy, or thyromegaly CHEST: Clear to auscultation. Normal effort HEART: NL S1/S2, regular, no murmur ABDOMEN: BS+, soft, nontender, no mass, no bruits EXTREMITIES: No cyanosis, edema, or clubbing NEUROLOGIC: CN intact and symmetric to inspection. MUSCULOSKELETAL: Right BKA and left great toe amputation noted PSYCH: Alert. Oriented to person, place, and time Const: General: no acute distress and uncomfortable Other: , female, nontoxic appearance HENMT: Face/Nose/Sinus: Normal nares present Mouth: Yes moist mucous membranes and Yes dry mucous membranes Eyes: General: appearance normal, both eyes and all related structures Sclera: sclerae normal Pupils: Equal, round and reactive pupils present EOM: EOMs intact bilaterally Neck: Neck: supple Resp: Effort & Inspection: normal respiratory effort Other: Bilateral lower lungs diminished lung sounds Cardio: Rate: regular rate Rhythm: regular rhythm Other: S1-S2 present without murmur, rub, ectopy GI: Inspection: non-distended Auscultation: abnormal bowel sounds (hypo, all quadrants) Other: Abdomen soft, nondistended, nontender. Skin: General skin exam: normal color and no rashes or lesions noted Other: Small scattered small areas of eschar less than 1 cm to bilateral shoulders, upper extremities, and forehead with no signs of infection. RLE: Normal inspection HD catheter to R subclavian Neuro: Cranial nerves: Yes Equal, round and reactive pupils present Speech: normal speech Sensory Exam: normal sensation Other: A&O x4, generalized weakness Extrem: Other: Left BKA. RLE trace. Thighs symmetric. RUE & LUE 1+ pitting edema Psych: Mental Status: mental status grossly normal Affect: normal affect and Anxious affect present Other: Good insight and judgment, very pleasant Objective Data Vital Signs Vital Signs: Vital Signs - 24 hr 02/24/25 14:00 02/24/25 21:55 02/24/25 21:56 Temperature 97.8 F 97.9 F Pulse Rate 74 78 78 Respiratory Rate 16 16 Blood Pressure 128/58 L 153/63 H Pulse Oximetry 97 98 02/25/25 06:57 02/25/25 08:30 02/25/25 08:37 Temperature 97.6 F 97.7 F Pulse Rate 78 77 76 Respiratory Rate 16 16 Blood Pressure 167/66 H 164/72 H 165/76 H Pulse Oximetry 98 100 02/25/25 09:00 02/25/25 09:15 02/25/25 09:30 Temperature Pulse Rate 74 75 74 Respiratory Rate Blood Pressure 158/75 H 155/74 H 158/75 H Pulse Oximetry 02/25/25 09:45 02/25/25 10:00 02/25/25 10:15 Temperature Pulse Rate 74 74 73 Respiratory Rate Blood Pressure 160/78 H 158/76 H 164/76 H Pulse Oximetry 02/25/25 10:30 02/25/25 10:45 02/25/25 11:00 Temperature Pulse Rate 73 77 74 Respiratory Rate Blood Pressure 172/79 H 174/81 H 181/83 H Pulse Oximetry 02/25/25 11:15 02/25/25 11:30 Temperature Pulse Rate 72 72 Respiratory Rate Blood Pressure 182/82 H 184/84 H Pulse Oximetry Intake/Output Intake/Output: Intake & Output 02/22/25 02/23/25 02/24/25 02/25/25 23:59 23:59 22:59 23:59 Intake Total 480 662 782 590 Output Total 3000 1400 1400 275 [facility] -[phone] Meds/Results Medications: Active Medications Generic Name Dose Route Start Last Admin Trade Name Freq PRN Reason Stop Dose Admin Acetaminophen 650 mg 02/05/25 20:41 02/22/25 08:00 Acetaminophen 325 Mg Tablet PO 650 mg Q4H PRN Administration Mild Pain (1-5) Or Fever Hydrocodone Bitart/Acetaminophen 1 tab 02/19/25 07:13 02/24/25 03:59 Hydrocodone/Acetaminophen (*Crx) 5-325 Mg Tablet PO 1 tab Q6H PRN Administration Pain Rated 6 or Greater Alteplase, Recombinant 2 mg 02/16/25 09:21 02/16/25 09:30 Alteplase 2 Mg Vial (Cathflo) IV PUSH 2 mg ONCE PRN Administration Line Occlusion Alteplase, Recombinant 2 mg 02/16/25 09:24 02/16/25 09:30 Alteplase 2 Mg Vial (Cathflo) IV PUSH 2 mg ONCE PRN Administration Line Occlusion Bumetanide 2 mg 02/17/25 09:00 02/24/25 08:41 Bumetanide 1 Mg Tablet PO 2 mg SuTuThSa MARGUERITE Administration Buspirone HCl 10 mg 02/10/25 12:43 02/23/25 17:37 Buspirone Hcl 10 Mg Tablet PO 10 mg BID PRN Administration Anxiety Carvedilol 25 mg 02/11/25 21:00 02/24/25 21:56 Carvedilol 25 Mg Tablet PO 25 mg Q12HR MARGUERITE Administration Dextrose 12.5 gm 02/05/25 21:36 Dextrose 50% 25 Gm/50 Ml Syringe IV PUSH PRN PRN Hypoglycemia Protocol Epoetin Sergio-epbx 10,000 units 02/25/25 17:40 02/25/25 10:29 Epoetin Sergio-Epbx 10,000 Units/Ml Vial IV PUSH 02/25/25 17:41 10,000 units ONCE ONE Administration Ergocalciferol 1,250 mcg 02/15/25 09:00 02/22/25 07:59 Ergocalciferol (Vitamin D2) 1,250 Mcg (50,000 Units) Capsule PO 1,250 mcg WEEKLY MARGUERITE Administration Escitalopram Oxalate 10 mg 02/14/25 07:00 02/24/25 08:42 Escitalopram Oxalate 10 Mg Tablet PO 10 mg DAILY MARGUERITE Administration Glucagon 1 mg 02/05/25 21:36 Glucagon For Inj 1 Mg Vial IM PRN PRN Hypoglycemia Protocol Glucose 15 gm 02/05/25 21:36 Glucose Oral Gel 15 Gm Of Glucse In 37.5 Gm Tube PO PRN PRN Hypoglycemia Protocol Heparin Sodium (Porcine) 1,000 units 02/11/25 11:47 02/11/25 12:03 Heparin Sodium 1,000 Units/Ml Vial IV PUSH 1,000 units Q1H PRN Administration DIALYSIS Heparin Sodium (Porcine) 5,000 units 02/19/25 09:00 02/24/25 21:57 Heparin Sodium 5,000 Units/Ml Vial SUB-Q 5,000 units Q12HR MARGUERITE Administration Hydroxyzine HCl 25 mg 02/16/25 12:22 02/19/25 20:46 Hydroxyzine Hcl 25 Mg Tablet PO 25 mg Q8H PRN Administration Itching Dextrose 1,000 mls @ 100 mls/hr 02/05/25 21:36 Dextrose 5% 1,000 Ml IVPB PRN PRN Hypoglycemia Protocol Albumin Human 50 mls @ 999 mls/hr 02/09/25 06:57 Albutein IVPB 03/11/25 06:56 Q10M PRN HYPOTENSION Insulin Aspart 4 - 8 units 02/06/25 08:00 02/24/25 17:38 Insulin Aspart (*Bkc) 100 Units/Ml SUB-Q 4 units TIDWM MARGUERITE Administration Protocol Insulin Aspart 2 - 4 units 02/05/25 21:45 02/24/25 21:59 Insulin Aspart (*Bkc) 100 Units/Ml SUB-Q Not Given HS MARGUERITE Protocol Lisinopril 5 mg 02/16/25 09:00 02/24/25 08:42 Lisinopril 5 Mg Tablet PO 5 mg DAILY MARGUERITE Administration Lorazepam 0.5 mg 02/16/25 15:22 02/16/25 15:44 Lorazepam (*Crx) 0.5 Mg Tablet PO 0.5 mg DAILY PRN Administration Anxiety Multi-Ingred Cream/Lotion/Oil/Oint 1 applic 02/13/25 09:00 02/24/25 08:42 Eucerin Cream 120 Gm Jar TOPICAL 1 applic DAILY MARGUERITE Administration Ondansetron HCl 4 mg 02/05/25 20:41 Ondansetron Inj 4 Mg/2 Ml Vial IV PUSH Q6H PRN Nausea And Vomiting Ondansetron HCl 4 mg 02/22/25 13:15 02/22/25 13:23 Ondansetron Hcl Odt 4 Mg Tablet PO 4 mg Q6H PRN Administration Nausea And Vomiting Pantoprazole Sodium 40 mg 02/14/25 09:00 02/24/25 08:43 Pantoprazole 40 Mg Tablet PO 40 mg DAILY MARGUERITE Administration Radiology Results: ITS Impressions Renal Ultrasound 02/06/25 17:09 IMPRESSION: Right kidney is unremarkable. Left kidney is not visualized. Renal Biopsy CT 02/13/25 10:19 IMPRESSION: 1. Successful CT-guided random left kidney biopsy. Chest X-Ray 02/18/25 12:30 Impression: CHF Central Venous Line 02/18/25 12:38 IMPRESSION: 1. Fluoroscopy utilized during dialysis catheter replacement. See procedure note for further detail. Venous Doppler Study 02/23/25 14:33 Impression: Negative for DVT. Femur CT 02/25/25 08:26 IMPRESSION: 1. Diffuse edema of the subcutaneous fat. No abscess. 2. Mild polyarticular osteoarthritis. 3. Markedly distended bladder. Labs Labs: Laboratory Results - last 24 hr 02/24/25 02/24/25 02/24/25 12:17 17:00 21:52 POC Capillary Glucose 166 H 204 H 143 H 02/25/25 07:38 POC Capillary Glucose 121 H Quality VTE Prophylaxis VTE prophylaxis: mechanical ordered
--- NOTE | 2025-02-25 12:23 | PCPTNOTE ---
Attempted to see this morning, in dialysis.
--- NOTE | 2025-02-25 12:47 | PM.PNCARD ---
Progress Note: A&P Assessment and Plan (1) Acute on chronic systolic and diastolic heart failure, NYHA class 1: Code(s): I50.43 - Acute on chronic combined systolic (congestive) and diastolic (congestive) heart failure Status: Acute (2) Volume overload: Code(s): E87.70 - Fluid overload, unspecified Status: Acute (3) End stage renal disease: Code(s): N18.6 - End stage renal disease Status: Chronic (4) Cardiomyopathy: Code(s): I42.9 - Cardiomyopathy, unspecified Status: Acute (5) Hypertension: Qualifiers: Hypertension type: primary hypertension Qualified Code(s): I10 - Essential (primary) hypertension Code(s): I10 - Essential (primary) hypertension Status: Acute (6) Diabetes: Qualifiers: Chronic kidney disease stage: unspecified stage Diabetes mellitus complication detail: with chronic kidney disease Diabetes mellitus complication status: with kidney complications Diabetes mellitus [facility] insulin use: without oil heaterman use Diabetes mellitus type: type 2 Qualified Code(s): E11.22 - Type 2 diabetes mellitus with diabetic chronic kidney disease Code(s): E11.9 - Type 2 diabetes mellitus without complications Status: Chronic (7) Status post below-knee amputation of left lower extremity: Code(s): Z89.512 - Acquired absence of left leg below knee Status: Acute Plan 1. Patient with moderate to severe hypertension with hypertensive heart disease and severe hypertensive heart disease with left ventricular hypertrophy. Echocardiogram reveals reduced systolic function in range of 30-35% along with diastolic heart 2. Acute predominantly systolic and diastolic heart failure. Improved with hemodialysis per 3. Cardiomyopathy with ejection fraction 30-35%. Etiology is likely chronic hypertensive heart disease. Cannot rule out coronary artery disease. 4. End-stage renal disease on hemodialysis started this admission. 5. Anemia of chronic disease. Recommendation: #. Blood pressure still remains moderately elevated. Patient is currently on carvedilol 25 b.i.d., lisinopril 5 mg daily and Bumex. Recommend changing to metoprolol tartrate 50 mg b.i.d., amlodipine 5 mg daily and hydralazine 10 mg t.i.d.. Titrate hydralazine as needed. Continue with Bumex 3 times a week as recommended by Nephrology Service. #. Since ejection fraction was reduced to 30-35%, recommend pharmacological nuclear stress test. #. Continue to monitor blood pressure bread Thank you again for allowing us to participate in care this patient. Subjective Date/time seen: 02/25/25 12:47 Interval history: Review of HPI: Patient is 45-year-old female patient was discharged on 09/22/2022 after treatment for DKA and diabetic foot infection. Patient admitted on 02/05/2025 with shortness of breath and not feeling well. Patient has history of BKA on the left, history of hypertension and chronic kidney disease. Patient was severely hypertensive with blood pressure as 218/115 mm of mercury on admission. Hemoglobin was 10.6 and creatinine was 78. Patient was started on Bumex 2 mg b.i.d.. Subsequent echocardiogram on 02/06/2025 revealed normal left ventricular size and ejection fraction of 30-35% with marked left ventricular hypertrophy and grade 1 diastolic dysfunction. There was [id number] tricuspid valve regurgitation. Patient was treated for acute on chronic combined systolic and diastolic heart failure. Patient had a right subclavian tunneled dialysis catheter which was no longer functional X 11/11/2024 and was replaced. Patient had removal of a right subclavian tunneled dialysis catheter and placement of right internal jugular tunneled dialysis catheter on 02/18/2025. Subjective: Patient examined at the bedside and appears to be comfortable. Currently receiving hemodialysis. Blood pressure is 168/80 to 171/111. Heart rate is 74 per minute. Currently patient is on carvedilol 25 mg q.12 hours lisinopril 5 mg daily, bumetanide 2 mg 3 times a week. No complaints of shortness of breath or chest pain. Blood pressure remains elevated Review of Systems Review of Systems: 12 point review of system was completed. Pertinent positive and negative findings per HPI. Pulmonary negative for shortness of breath, cough or hemoptysis. Cardiovascular system negative for chest pain, shortness of breath, leg edema or PND Renovascular system positive for hemodialysis through the right tunneled hemodialysis catheter Neurovascular is stable. Exam Narrative: Patient is awake alert appears to be comfortable without shortness of breath or chest pain. Head and neck examination is unremarkable. Neck is supple. There is no JVD or carotid bruit. And right jugular dialysis catheter is noted. Lungs are clear to auscultation percussion Heart sounds reveal normal S1-S2. Soft systolic murmurs noted. S3 is present. There is no S4. Abdomen is soft and nontender. There is no hepatosplenomegaly probable sounds present. Extremities revealed no pedal edema. Neurological examination is intact. Skin and musculoskeletal is negative. Objective Data Vital Signs Vital Signs: Vital Signs - 24 hr 02/24/25 14:00 02/24/25 21:55 02/24/25 21:56 Temperature 36.6 C 36.6 C Pulse Rate 74 78 78 Respiratory Rate 16 16 Blood Pressure 128/58 L 153/63 H Pulse Oximetry 97 98 02/25/25 06:57 02/25/25 08:30 02/25/25 08:37 Temperature 36.4 C 36.5 C Pulse Rate 78 77 76 Respiratory Rate 16 16 Blood Pressure 167/66 H 164/72 H 165/76 H Pulse Oximetry 98 100 02/25/25 09:00 02/25/25 09:15 02/25/25 09:30 Temperature Pulse Rate 74 75 74 Respiratory Rate Blood Pressure 158/75 H 155/74 H 158/75 H Pulse Oximetry 02/25/25 09:45 02/25/25 10:00 02/25/25 10:15 Temperature Pulse Rate 74 74 73 Respiratory Rate Blood Pressure 160/78 H 158/76 H 164/76 H Pulse Oximetry 02/25/25 10:30 02/25/25 10:45 02/25/25 11:00 Temperature Pulse Rate 73 77 74 Respiratory Rate Blood Pressure 172/79 H 174/81 H 181/83 H Pulse Oximetry 02/25/25 11:15 02/25/25 11:30 02/25/25 11:45 Temperature Pulse Rate 72 72 71 Respiratory Rate Blood Pressure 182/82 H 184/84 H 182/82 H Pulse Oximetry 02/25/25 12:00 02/25/25 12:10 02/25/25 12:20 Temperature 36.9 C Pulse Rate 72 73 74 Respiratory Rate 16 Blood Pressure 166/78 H 168/80 H 171/111 H Pulse Oximetry 99 Intake/Output Intake/Output: Intake & Output 02/22/25 02/23/25 02/24/25 02/25/25 23:59 23:59 22:59 23:59 Intake Total 480 662 782 590 Output Total 3000 [phone] [id number] [facility] -[phone] Meds/Results Medications: Active Medications Generic Name Dose Route Start Last Admin Trade Name Freq PRN Reason Stop Dose Admin Acetaminophen 650 mg 02/05/25 20:41 02/22/25 08:00 Acetaminophen 325 Mg Tablet PO 650 mg Q4H PRN Administration Mild Pain (1-5) Or Fever Hydrocodone Bitart/Acetaminophen 1 tab 02/19/25 07:13 02/24/25 03:59 Hydrocodone/Acetaminophen (*Crx) 5-325 Mg Tablet PO 1 tab Q6H PRN Administration Pain Rated 6 or Greater Alteplase, Recombinant 2 mg 02/16/25 09:21 02/16/25 09:30 Alteplase 2 Mg Vial (Cathflo) IV PUSH 2 mg ONCE PRN Administration Line Occlusion Alteplase, Recombinant 2 mg 02/16/25 09:24 02/16/25 09:30 Alteplase 2 Mg Vial (Cathflo) IV PUSH 2 mg ONCE PRN Administration Line Occlusion Bumetanide 2 mg 02/17/25 09:00 02/24/25 08:41 Bumetanide 1 Mg Tablet PO 2 mg SuTuThSa MARGUERITE Administration Buspirone HCl 10 mg 02/10/25 12:43 02/23/25 17:37 Buspirone Hcl 10 Mg Tablet PO 10 mg BID PRN Administration Anxiety Carvedilol 25 mg 02/11/25 21:00 02/24/25 21:56 Carvedilol 25 Mg Tablet PO 25 mg Q12HR MARGUERITE Administration Dextrose 12.5 gm 02/05/25 21:36 Dextrose 50% 25 Gm/50 Ml Syringe IV PUSH PRN PRN Hypoglycemia Protocol Epoetin Sergio-epbx 10,000 units 02/25/25 17:40 02/25/25 10:29 Epoetin Sergio-Epbx 10,000 Units/Ml Vial IV PUSH 02/25/25 17:41 10,000 units ONCE ONE Administration Ergocalciferol 1,250 mcg 02/15/25 09:00 02/22/25 07:59 Ergocalciferol (Vitamin D2) 1,250 Mcg (50,000 Units) Capsule PO 1,250 mcg WEEKLY MARGUERITE Administration Escitalopram Oxalate 10 mg 02/14/25 07:00 02/24/25 08:42 Escitalopram Oxalate 10 Mg Tablet PO 10 mg DAILY MARGUERITE Administration Glucagon 1 mg 02/05/25 21:36 Glucagon For Inj 1 Mg Vial IM PRN PRN Hypoglycemia Protocol Glucose 15 gm 02/05/25 21:36 Glucose Oral Gel 15 Gm Of Glucse In 37.5 Gm Tube PO PRN PRN Hypoglycemia Protocol Heparin Sodium (Porcine) 1,000 units 02/11/25 11:47 02/11/25 12:03 Heparin Sodium 1,000 Units/Ml Vial IV PUSH 1,000 units Q1H PRN Administration DIALYSIS Heparin Sodium (Porcine) 5,000 units 02/19/25 09:00 02/24/25 21:57 Heparin Sodium 5,000 Units/Ml Vial SUB-Q 5,000 units Q12HR MARGUERITE Administration Hydroxyzine HCl 25 mg 02/16/25 12:22 02/19/25 20:46 Hydroxyzine Hcl 25 Mg Tablet PO 25 mg Q8H PRN Administration Itching Dextrose 1,000 mls @ 100 mls/hr 02/05/25 21:36 Dextrose 5% 1,000 Ml IVPB PRN PRN Hypoglycemia Protocol Albumin Human 50 mls @ 999 mls/hr 02/09/25 06:57 Albutein IVPB 03/11/25 06:56 Q10M PRN HYPOTENSION Insulin Aspart 4 - 8 units 02/06/25 08:00 02/25/25 12:39 Insulin Aspart (*Bkc) 100 Units/Ml SUB-Q Not Given TIDWM MARGUERITE Protocol Insulin Aspart 2 - 4 units 02/05/25 21:45 02/24/25 21:59 Insulin Aspart (*Bkc) 100 Units/Ml SUB-Q Not Given HS MARGUERITE Protocol Lisinopril 5 mg 02/16/25 09:00 02/24/25 08:42 Lisinopril 5 Mg Tablet PO 5 mg DAILY MARGUERITE Administration Lorazepam 0.5 mg 02/16/25 15:22 02/16/25 15:44 Lorazepam (*Crx) 0.5 Mg Tablet PO 0.5 mg DAILY PRN Administration Anxiety Multi-Ingred Cream/Lotion/Oil/Oint 1 applic 02/13/25 09:00 02/24/25 08:42 Eucerin Cream 120 Gm Jar TOPICAL 1 applic DAILY MARGUERITE Administration Ondansetron HCl 4 mg 02/05/25 20:41 Ondansetron Inj 4 Mg/2 Ml Vial IV PUSH Q6H PRN Nausea And Vomiting Ondansetron HCl 4 mg 02/22/25 13:15 02/22/25 13:23 Ondansetron Hcl Odt 4 Mg Tablet PO 4 mg Q6H PRN Administration Nausea And Vomiting Pantoprazole Sodium 40 mg 02/14/25 09:00 02/24/25 08:43 Pantoprazole 40 Mg Tablet PO 40 mg DAILY MARGUERITE Administration Radiology Results: ITS Impressions Renal Ultrasound 02/06/25 17:09 IMPRESSION: Right kidney is unremarkable. Left kidney is not visualized. Renal Biopsy CT 02/13/25 10:19 IMPRESSION: 1. Successful CT-guided random left kidney biopsy. Chest X-Ray 02/18/25 12:30 Impression: CHF Central Venous Line 02/18/25 12:38 IMPRESSION: 1. Fluoroscopy utilized during dialysis catheter replacement. See procedure note for further detail. Venous Doppler Study 02/23/25 14:33 Impression: Negative for DVT. Femur CT 02/25/25 08:26 IMPRESSION: 1. Diffuse edema of the subcutaneous fat. No abscess. 2. Mild polyarticular osteoarthritis. 3. Markedly distended bladder. Labs Labs: Laboratory Results - last 24 hr 02/24/25 02/24/25 02/25/25 17:00 21:52 07:38 POC Capillary Glucose 204 H 143 H 121 H
[2025-02-25] MEDS: PANTOPRAZOLE 40 MG TABLET PO (13:16)
[2025-02-25] MEDS: ESCITALOPRAM OXALATE 10 MG TABLET PO (13:16)
[2025-02-25] MEDS: EUCERIN CREAM 120 GM JAR 1 APPLIC TOPICAL (13:36)
--- NOTE | 2025-02-25 14:31 | PCPTNOTE ---
Attempted to see patient for Physical Therapy this afternoon. Patient stated that she needed to be put on the bed l[place] prior to participating in therapy. Patient stated that she was having 6/10 pain at her R thigh that was dull, sharp, and achy. RN notified. Physical Therapy will continue to follow.
[2025-02-25] MEDS: IRON SUCROSE COMPLEX 200 MG in SODIUM CHLORIDE 0.9% IV 100 ML 220 MG IVPB (15:34)
[2025-02-25] MEDS: INSULIN ASPART (*BKC) 100 UNITS/ML SUB-Q (21:30)
[2025-02-25] MEDS: METOPROLOL TARTRATE 50 MG TAB PO (21:30)
--- NOTE | 2025-02-26 | EST_ITS ---
Patient Info Name: Sydni Padron Age: 45 years : 1980 Gender: Female Ht: 66 in Wt: 197 lbs BSA: 2.07 m2 HR: 79 bpm BP: 142 / 71 mmHg Exam Date: 02/26/2025 12:03 AM Patient Status: I Admit Date: 02/07/2025 Exam Type: CA stress carmen w NM A regadenoson stress test was performed. Staff Referring Physician: Mark Hamlin Attending Provider: Jairo Meyer MD Nurse: Nuris Morris Exercise Technologist: Angy Lundberg Summary 1. Please correlate with nuclear medicine images, reported separately. 2. No abnormal ST-T wave changes with lexiscan. 3. Interpreting physician: Dr. Johnson. Protocol: Lexiscan Stress ECG Details Stage: REST Duration (min): 0 min : 30 sec HR (bpm): 80 SBP (mmHg): --- DBP (mmHg): --- Stage: REST Duration (min): 16 min : 26 sec HR (bpm): 85 SBP (mmHg): 142 DBP (mmHg): 71 Stage: STAGE 1 Duration (min): 0 min : 59 sec HR (bpm): 87 SBP (mmHg): 142 DBP (mmHg): 57 Stage: RECOVERY Duration (min): 1 min : 0 sec HR (bpm): 87 SBP (mmHg): 142 DBP (mmHg): 57 Stage: RECOVERY Duration (min): 2 min : 0 sec HR (bpm): 87 SBP (mmHg): 142 DBP (mmHg): 57 Stage: RECOVERY Duration (min): 3 min : 0 sec HR (bpm): 87 SBP (mmHg): 176 DBP (mmHg): 53 Stage: RECOVERY Duration (min): 3 min : 50 sec HR (bpm): 86 SBP (mmHg): 176 DBP (mmHg): 53 Rest HR: 85 bpm Peak HR: 88 bpm Rest Sys BP: 142 mmHg Peak Sys BP: 176 mmHg Max Pred HR: 177 bpm % Max Pred HR: 50 % Target HR: 150 bpm Max RPP: 15,488 bpm*mmHg Target HR Summary: Hemodynamic response to exercise was normal BP Response: Normal blood pressure response Termination Reason: Completed protocol Cardiac Symptoms: None Total Time: 1 min : 0 sec Rest Squires BP: 71 mmHg Peak Squires BP: 53 mmHg Total Dose: 0.4 mg Resting ECG Normal sinus rhythm. Minor resting T wave abn. Stress ECG No abnormal ST/T wave changes with Lexiscan. Arrhythmias Occasional PVCs. Report Signatures
[2025-02-26 03:47] VITALS: BP 152/67; PULSE 82; RESP 18; TEMP 36.6; O2SAT 94
[2025-02-26 09:09] VITALS: BP 120/54; PULSE 78
[2025-02-26 09:11] VITALS: PULSE 78
[2025-02-26] MEDS: ESCITALOPRAM OXALATE 10 MG TABLET PO (09:11)
[2025-02-26] MEDS: METOPROLOL TARTRATE 50 MG TAB PO ×2 (09:11→20:19)
[2025-02-26] MEDS: PANTOPRAZOLE 40 MG TABLET PO (09:11)
[2025-02-26] MEDS: EUCERIN CREAM 120 GM JAR 1 APPLIC TOPICAL (09:11)
[2025-02-26] MEDS: BUMETANIDE 1 MG TABLET 2 MG PO (09:13)
--- NOTE | 2025-02-26 11:47 | PCPTNOTE ---
The patient treatment was not able to be completed at this time due to patient out of room for testing. Will plan to continue treatment per plan of care.
[2025-02-26] MEDS: HYDROcodone/acetaminophen (*CRX) 5-325 MG TABLET 1 TAB PO (12:48)
--- NOTE | 2025-02-26 13:11 | P.PNCA_ITS ---
Progress Note: A&P Assessment and Plan (1) Acute on chronic systolic and diastolic heart failure, NYHA class 1: Code(s): I50.43 - Acute on chronic combined systolic (congestive) and diastolic (congestive) heart failure Status: Acute (2) Volume overload: Code(s): E87.70 - Fluid overload, unspecified Status: Acute (3) End stage renal disease: Code(s): N18.6 - End stage renal disease Status: Chronic (4) Cardiomyopathy: Code(s): I42.9 - Cardiomyopathy, unspecified Status: Acute (5) Hypertension: Qualifiers: Hypertension type: primary hypertension Qualified Code(s): I10 - Essential (primary) hypertension Code(s): I10 - Essential (primary) hypertension Status: Acute (6) Diabetes: Qualifiers: Diabetes mellitus type: type 2 Diabetes mellitus joint terminal attack controller insulin use: without joint terminal attack controller use Diabetes mellitus complication status: with kidney complications Diabetes mellitus complication detail: with chronic kidney disease Chronic kidney disease stage: unspecified stage Qualified Code(s): E11.22 - Type 2 diabetes mellitus with diabetic chronic kidney disease Code(s): E11.9 - Type 2 diabetes mellitus without complications Status: Chronic (7) Status post below-knee amputation of left lower extremity: Code(s): Z89.512 - Acquired absence of left leg below knee Status: Acute Plan 1. Patient with moderate to severe hypertension with hypertensive heart disease and severe hypertensive heart disease with left ventricular hypertrophy. Echocardiogram reveals reduced systolic function in range of 30-35% along with diastolic heart 2. Acute predominantly systolic and diastolic heart failure. Improved with hemodialysis per 3. Cardiomyopathy with ejection fraction 30-35%. Etiology is likely chronic hypertensive heart disease. Cannot rule out coronary artery disease. 4. End-stage renal disease on hemodialysis started this admission. 5. Anemia of chronic disease. Recommendation: #. Blood pressure is significantly improved on current medication. Patient is on lisinopril 5 mg daily and Bumex. Recommend changing to metoprolol tartrate 50 mg b.i.d., amlodipine 5 mg daily and hydralazine 10 mg t.i.d.. Titrate hydralazine as needed. Continue with Bumex 3 times a week as recommended by Nephrology Service. Since blood pressure is significantly improved with blood pressure parameter for amlodipine and discontinue hydralazine. #. Since ejection fraction was reduced to 30-35%, recommend pharmacological nuclear stress test, being done today. #. Continue to monitor blood pressure. Thank you again for allowing us to participate in care this patient. Subjective Date/time seen: 02/26/25 13:11 Interval history: Review of HPI: Patient is 45-year-old female patient was discharged on 09/22/2022 after treatment for DKA and diabetic foot infection. Patient admitted on 02/05/2025 with shortness of breath and not feeling well. Patient has history of BKA on the left, history of hypertension and chronic kidney disease. Patient was severely hypertensive with blood pressure as 218/115 mm of mercury on admission. Hemoglobin was 10.6 and creatinine was 78. Patient was started on Bumex 2 mg b.i.d.. Subsequent echocardiogram on 02/06/2025 revealed normal left ventricular size and ejection fraction of 30-35% with marked left ventricular hypertrophy and grade 1 diastolic dysfunction. There was [id number] tricuspid valve regurgitation. Patient was treated for acute on chronic combined systolic and diastolic heart failure. Patient had a right subclavian tunneled dialysis catheter which was no longer functional X 11/11/2024 and was replaced. Patient had removal of a right subclavian tunneled dialysis catheter and placement of right internal jugular tunneled dialysis catheter on 02/18/2025. Subjective: Patient examined at the bedside and appears to be comfortable. Going for nuclear stress test today. Blood pressure is improved to 1 20/54 and 152/67. Heart rate is 78 per minute. Currently patient is on carvedilol 25 mg q.12 hours lisinopril 5 mg daily, bumetanide 2 mg 3 times a week. Carvedilol was discontinued yesterday and patient was started on metoprolol tartrate 50 mg b.i.d. for blood pressure, amlodipine and hydralazine were started. No complaints of shortness of breath or chest pain. Blood pressure remains elevated Blood pressure should also come down as patient is on hemodialysis. Review of Systems Review of Systems: 12 point review of system was completed. Pertinent positive and negative findings per HPI. Pulmonary negative for shortness of breath, cough or hemoptysis. Cardiovascular system negative for chest pain, shortness of breath, leg edema or PND Renovascular system positive for hemodialysis through the right tunneled hemodialysis catheter Neurovascular is stable. Exam Narrative: Patient is awake alert appears to be comfortable without shortness of breath or chest pain. Head and neck examination is unremarkable. Neck is supple. There is no JVD or carotid bruit. And right jugular dialysis catheter is noted. Lungs are clear to auscultation percussion Heart sounds reveal normal S1-S2. Soft systolic murmurs noted. S3 is present. There is no S4. Abdomen is soft and nontender. There is no hepatosplenomegaly probable sounds present. Extremities revealed no pedal edema. Neurological examination is intact. Skin and musculoskeletal is negative. Objective Data Vital Signs Vital Signs: Vital Signs - 24 hr 02/25/25 15:30 02/25/25 15:43 02/25/25 19:53 Temperature 36.4 C 36.4 C Pulse Rate 78 78 79 Respiratory Rate 16 20 Blood Pressure 138/57 L 151/57 H 164/63 H Pulse Oximetry 98 98 98 Oxygen Delivery 02/25/25 20:00 02/25/25 21:30 02/26/25 03:47 Temperature 36.6 C Pulse Rate 79 82 Respiratory Rate 18 Blood Pressure 152/67 H Pulse Oximetry 94 Oxygen Delivery Room Air 02/26/25 09:00 02/26/25 09:09 02/26/25 09:11 Temperature Pulse Rate 78 78 Respiratory Rate Blood Pressure 120/54 L Pulse Oximetry Oxygen Delivery Room Air Intake/Output Intake/Output: Intake & Output 02/23/25 02/24/25 02/25/25 02/26/25 23:59 22:59 23:59 23:59 Intake Total 662 782 830 290 Output Total 1400 [phone] [facility] [phone] Meds/Results Medications: Active Medications Generic Name Dose Route Start Last Admin Trade Name Freq PRN Reason Stop Dose Admin Acetaminophen 650 mg 02/05/25 20:41 02/22/25 08:00 Acetaminophen 325 Mg Tablet PO 650 mg Q4H PRN Administration Mild Pain (1-5) Or Fever Hydrocodone Bitart/Acetaminophen 1 tab 02/19/25 07:13 02/26/25 12:48 Hydrocodone/Acetaminophen (*Crx) 5-325 Mg Tablet PO 1 tab Q6H PRN Administration Pain Rated 6 or Greater Alteplase, Recombinant 2 mg 02/16/25 09:21 02/16/25 09:30 Alteplase 2 Mg Vial (Cathflo) IV PUSH 2 mg ONCE PRN Administration Line Occlusion Alteplase, Recombinant 2 mg 02/16/25 09:24 02/16/25 09:30 Alteplase 2 Mg Vial (Cathflo) IV PUSH 2 mg ONCE PRN Administration Line Occlusion Amlodipine Besylate 5 mg 02/25/25 09:00 02/26/25 09:10 Amlodipine Besylate 5 Mg Tablet PO 5 mg DAILY MARGUERITE Administration Bumetanide 2 mg 02/17/25 09:00 02/26/25 09:13 Bumetanide 1 Mg Tablet PO 2 mg SuTuThSa MARGUERITE Administration Buspirone HCl 10 mg 02/10/25 12:43 02/26/25 12:48 Buspirone Hcl 10 Mg Tablet PO 10 mg BID PRN Administration Anxiety Dextrose 12.5 gm 02/05/25 21:36 Dextrose 50% 25 Gm/50 Ml Syringe IV PUSH PRN PRN Hypoglycemia Protocol Ergocalciferol 1,250 mcg 02/15/25 09:00 02/22/25 07:59 Ergocalciferol (Vitamin D2) 1,250 Mcg (50,000 Units) Capsule PO 1,250 mcg WEEKLY MARGUERITE Administration Escitalopram Oxalate 10 mg 02/14/25 07:00 02/26/25 09:11 Escitalopram Oxalate 10 Mg Tablet PO 10 mg DAILY MARGUERITE Administration Glucagon 1 mg 02/05/25 21:36 Glucagon For Inj 1 Mg Vial IM PRN PRN Hypoglycemia Protocol Glucose 15 gm 02/05/25 21:36 Glucose Oral Gel 15 Gm Of Glucse In 37.5 Gm Tube PO PRN PRN Hypoglycemia Protocol Heparin Sodium (Porcine) 1,000 units 02/11/25 11:47 02/11/25 12:03 Heparin Sodium 1,000 Units/Ml Vial IV PUSH 1,000 units Q1H PRN Administration DIALYSIS Heparin Sodium (Porcine) 5,000 units 02/19/25 09:00 02/26/25 09:11 Heparin Sodium 5,000 Units/Ml Vial SUB-Q 5,000 units Q12HR MARGUERITE Administration Hydralazine HCl 25 mg 02/25/25 14:00 02/26/25 05:34 Hydralazine Hcl 25 Mg Tablet PO 25 mg Q8HR MARGUERITE Administration Hydroxyzine HCl 25 mg 02/16/25 12:22 02/19/25 20:46 Hydroxyzine Hcl 25 Mg Tablet PO 25 mg Q8H PRN Administration Itching Dextrose 1,000 mls @ 100 mls/hr 02/05/25 21:36 Dextrose 5% 1,000 Ml IVPB PRN PRN Hypoglycemia Protocol Albumin Human 50 mls @ 999 mls/hr 02/09/25 06:57 Albutein IVPB 03/11/25 06:56 Q10M PRN HYPOTENSION Insulin Aspart 4 - 8 units 02/06/25 08:00 02/26/25 12:38 Insulin Aspart (*Bkc) 100 Units/Ml SUB-Q Not Given TIDWM MARGUERITE Protocol Insulin Aspart 2 - 4 units 02/05/25 21:45 02/25/25 21:30 Insulin Aspart (*Bkc) 100 Units/Ml SUB-Q 2 units HS MARGUERITE Administration Protocol Lisinopril 5 mg 02/16/25 09:00 02/26/25 09:11 Lisinopril 5 Mg Tablet PO 5 mg DAILY MARGUERITE Administration Lorazepam 0.5 mg 02/16/25 15:22 02/16/25 15:44 Lorazepam (*Crx) 0.5 Mg Tablet PO 0.5 mg DAILY PRN Administration Anxiety Metoprolol Tartrate 50 mg 02/25/25 21:00 02/26/25 09:11 Metoprolol Tartrate 50 Mg Tab PO 50 mg Q12HR MARGUERITE Administration Miscellaneous Information 1 each 02/25/25 00:01 Please Renew Lorazepam 0.5 Mg. Per [employer] Procedure, It Will Discontinue If Not Renewed XX 03/27/25 00:00 CLARIFY MARGUERITE Multi-Ingred Cream/Lotion/Oil/Oint 1 applic 02/13/25 09:00 02/26/25 09:11 Eucerin Cream 120 Gm Jar TOPICAL 1 applic DAILY MARGUERITE Administration Ondansetron HCl 4 mg 02/05/25 20:41 Ondansetron Inj 4 Mg/2 Ml Vial IV PUSH Q6H PRN Nausea And Vomiting Ondansetron HCl 4 mg 02/22/25 13:15 02/22/25 13:23 Ondansetron Hcl Odt 4 Mg Tablet PO 4 mg Q6H PRN Administration Nausea And Vomiting Pantoprazole Sodium 40 mg 02/14/25 09:00 02/26/25 09:11 Pantoprazole 40 Mg Tablet PO 40 mg DAILY MARGUERITE Administration Radiology Results: ITS Impressions Renal Ultrasound 10/15/25 17:09 IMPRESSION: Right kidney is unremarkable. Left kidney is not visualized. Renal Biopsy CT 02/13/25 10:19 IMPRESSION: 1. Successful CT-guided random left kidney biopsy. Chest X-Ray 02/18/25 12:30 Impression: CHF Central Venous Line 02/18/25 12:38 IMPRESSION: 1. Fluoroscopy utilized during dialysis catheter replacement. See procedure note for further detail. Venous Doppler Study 02/23/25 14:33 Impression: Negative for DVT. Femur CT 02/25/25 08:26 IMPRESSION: 1. Diffuse edema of the subcutaneous fat. No abscess. 2. Mild polyarticular osteoarthritis. 3. Markedly distended bladder. Lexiscan Stress Test 02/26/25 12:53 IMPRESSION: 1. Normal myocardial perfusion at rest and during stress. 2. Left ventricular ejection fraction measuring 69%. Labs Labs: Laboratory Results - last 24 hr 02/25/25 02/25/25 02/25/25 16:41 19:57 19:59 POC Capillary Glucose 166 H 207 H 211 H 02/26/25 02/26/25 07:27 12:34 POC Capillary Glucose 128 H 116 H
[2025-02-26 14:00] VITALS: BP 144/60; PULSE 77; RESP 12; TEMP 36.6; O2SAT 100
[2025-02-26] MEDS: ONDANSETRON INJ 4 MG/2 ML VIAL IV PUSH (17:31)
--- NOTE | 2025-02-26 18:01 | PM.IMPN ---
Progress Note: A&P Assessment and Plan (1) Acute kidney injury: Code(s): N17.9 - Acute kidney failure, unspecified Status: Acute Assessment and Plan: Admitted for [facility]. HD cath placed 02/08. Started on HD. 02/12 Kidney biopsy shows chronic injury consistent with a combination of vascular disease, ischemic injury, and diabetic nephropathy. There is no evidence of a superimposed active disease process. 02/13 Renal US: Right kidney is unremarkable. Left kidney is not visualized RUE edema and poor flow from dialysis catheter so HD catheter changed 02/18/2025 Tolerating dialysis well Awaiting Nephrology clearance for discharge (2) CHF (congestive heart failure): Qualifiers: Heart failure type: unspecified Heart failure chronicity: acute Qualified Code(s): I50.9 - Heart failure, unspecified Code(s): I50.9 - Heart failure, unspecified Status: Acute Assessment and Plan: Patient originally presented for primary complaint of shortness of breath and right lower extremity swelling (history of left BKA).? CXR showed mild CHF.?Given new onset renal failure related to hypervolemia due to acute renal failure/ESRD and new onset systolic and diastolic CHF BNP greater than 30,000 upon admission on 02/05 Echo showing EF 30-35%, Grade I diastolic dysfunction, mild-mod MR and TR, moderate pHTN. Started Bumex 2 mg b.i.d. IV, now on dialysis, so p.o. 3 times weekly per Nephrology Service HD to control fluid status. Continue GDMT Cardiology has consulted-status post NST today, normal myocardial perfusion at rest during stress with ejection fraction 69% (3) Diabetes: Qualifiers: Diabetes mellitus type: type 2 Diabetes mellitus ocean transportation intermediary insulin use: without ocean transportation intermediary use Diabetes mellitus complication status: with kidney complications Diabetes mellitus complication detail: with chronic kidney disease Chronic kidney disease stage: unspecified stage Qualified Code(s): E11.22 - Type 2 diabetes mellitus with diabetic chronic kidney disease Code(s): E11.9 - Type 2 diabetes mellitus without complications Status: Chronic Assessment and Plan: A1c 8.6% on 02/05/2025. She has been off of her medications for the past 2 years since 2022.? She has not followed with any providers since 2022.? Diabetes complicated by previous diabetic foot infection requiring a left BKA in 2022. The patient's blood glucose was reviewed on 02/18 Glucose remains well controlled. Continue AccuCheks covering with sliding scale. Hypoglycemia protocol available as needed. FBS 113 senior health educator and index editor consulted (4) Hypertension: Qualifiers: Hypertension type: primary hypertension Qualified Code(s): I10 - Essential (primary) hypertension Code(s): I10 - Essential (primary) hypertension Status: Acute Assessment and Plan: # Hypertension: BP was markedly elevated on admission felt related to fluid overload. Blood pressure better controlled. Currently on metoprolol tartrate 50 mg b.i.d., amlodipine 5 mg daily, Bumex 3 times weekly on nondialysis days (5) Anemia: Qualifiers: Anemia type: due to chronic kidney disease Chronic kidney disease stage: unspecified stage Qualified Code(s): N18.9 - Chronic kidney disease, unspecified; D63.1 - Anemia in chronic kidney disease Code(s): D64.9 - Anemia, unspecified Status: Acute Assessment and Plan: Hgb in 2022 was in the 7 range. Hgb 10.6 on admission but now mostly in 8-9 range. 02/05: Ferritin 17, Iron 29, TIBC 400, %Sat 7. B12/folate normal. Anemia likely secondary to iron deficiency and CKD. Treated with venofer 600mg x1 02/06. Receiving intermittent Epogen (6) Status post below-knee amputation of left lower extremity: Code(s): Z89.512 - Acquired absence of left leg below knee Status: Acute Plan DVT prophylaxis on heparin Awaiting placement Subjective Date/time seen: 02/26/25 18:01 Review of Systems Review of Systems: All systems reviewed & are unremarkable except as noted in HPI and below Exam Narrative: HEENT: PERRL, sclerae nonicteric, pharyngeal mucosa pink and intact NECK: No JVD, adenopathy, or thyromegaly CHEST: Clear to auscultation. Normal effort. Hemodialysis catheter in place HEART: NL S1/S2, regular, no murmur ABDOMEN: BS+, soft, nontender, no mass, no bruits EXTREMITIES: No cyanosis, edema, or clubbing NEUROLOGIC: CN intact and symmetric to inspection. MUSCULOSKELETAL: Right BKA and left great toe amputation noted PSYCH: Alert. Oriented to person, place, and time Const: General: no acute distress and uncomfortable Other: , female, nontoxic appearance HENMT: Face/Nose/Sinus: Normal nares present Mouth: Yes moist mucous membranes and Yes dry mucous membranes Eyes: General: appearance normal, both eyes and all related structures Sclera: sclerae normal Pupils: Equal, round and reactive pupils present EOM: EOMs intact bilaterally Neck: Neck: supple Resp: Effort & Inspection: normal respiratory effort Other: Bilateral lower lungs diminished lung sounds Cardio: Rate: regular rate Rhythm: regular rhythm Other: S1-S2 present without murmur, rub, ectopy GI: Inspection: non-distended Auscultation: abnormal bowel sounds (hypo, all quadrants) Other: Abdomen soft, nondistended, nontender. Skin: General skin exam: normal color and no rashes or lesions noted Other: Small scattered small areas of eschar less than 1 cm to bilateral shoulders, upper extremities, and forehead with no signs of infection. RLE: Normal inspection HD catheter to R subclavian Neuro: Cranial nerves: Yes Equal, round and reactive pupils present Speech: normal speech Sensory Exam: normal sensation Other: A&O x4, generalized weakness Extrem: Other: Left BKA. RLE trace. Thighs symmetric. RUE & LUE 1+ pitting edema Psych: Mental Status: mental status grossly normal Affect: normal affect and Anxious affect present Other: Good insight and judgment, very pleasant Objective Data Vital Signs Vital Signs: Vital Signs - 24 hr 02/25/25 19:53 02/25/25 20:00 02/25/25 21:30 Temperature 97.6 F Pulse Rate 79 79 Respiratory Rate 20 Blood Pressure 164/63 H Pulse Oximetry 98 Oxygen Delivery Room Air 02/26/25 03:47 02/26/25 09:00 02/26/25 09:09 Temperature 97.8 F Pulse Rate 82 78 Respiratory Rate 18 Blood Pressure 152/67 H 120/54 L Pulse Oximetry 94 Oxygen Delivery Room Air 02/26/25 09:11 02/26/25 14:00 Temperature 97.8 F Pulse Rate 78 77 Respiratory Rate 12 Blood Pressure 144/60 H Pulse Oximetry 100 Oxygen Delivery Intake/Output Intake/Output: Intake & Output 02/23/25 02/24/25 02/25/25 02/26/25 23:59 22:59 23:59 23:59 Intake Total 662 782 830 290 Output Total 1400 1400 [id number] [facility]508 [phone] Meds/Results Medications: Active Medications Generic Name Dose Route Start Last Admin Trade Name Freq PRN Reason Stop Dose Admin Acetaminophen 650 mg 02/05/25 20:41 02/22/25 08:00 Acetaminophen 325 Mg Tablet PO 650 mg Q4H PRN Administration Mild Pain (1-5) Or Fever Hydrocodone Bitart/Acetaminophen 1 tab 02/19/25 07:13 02/26/25 12:48 Hydrocodone/Acetaminophen (*Crx) 5-325 Mg Tablet PO 1 tab Q6H PRN Administration Pain Rated 6 or Greater Alteplase, Recombinant 2 mg 02/16/25 09:21 02/16/25 09:30 Alteplase 2 Mg Vial (Cathflo) IV PUSH 2 mg ONCE PRN Administration Line Occlusion Alteplase, Recombinant 2 mg 02/16/25 09:24 02/16/25 09:30 Alteplase 2 Mg Vial (Cathflo) IV PUSH 2 mg ONCE PRN Administration Line Occlusion Amlodipine Besylate 5 mg 02/25/25 09:00 02/26/25 09:10 Amlodipine Besylate 5 Mg Tablet PO 5 mg DAILY MARGUERITE Administration Bumetanide 2 mg 02/17/25 09:00 02/26/25 09:13 Bumetanide 1 Mg Tablet PO 2 mg SuTuThSa MARGUERITE Administration Buspirone HCl 10 mg 02/10/25 12:43 02/26/25 12:48 Buspirone Hcl 10 Mg Tablet PO 10 mg BID PRN Administration Anxiety Dextrose 12.5 gm 02/05/25 21:36 Dextrose 50% 25 Gm/50 Ml Syringe IV PUSH PRN PRN Hypoglycemia Protocol Ergocalciferol 1,250 mcg 02/15/25 09:00 02/22/25 07:59 Ergocalciferol (Vitamin D2) 1,250 Mcg (50,000 Units) Capsule PO 1,250 mcg WEEKLY MARGUERITE Administration Escitalopram Oxalate 10 mg 02/14/25 07:00 02/26/25 09:11 Escitalopram Oxalate 10 Mg Tablet PO 10 mg DAILY MARGUERITE Administration Glucagon 1 mg 02/05/25 21:36 Glucagon For Inj 1 Mg Vial IM PRN PRN Hypoglycemia Protocol Glucose 15 gm 02/05/25 21:36 Glucose Oral Gel 15 Gm Of Glucse In 37.5 Gm Tube PO PRN PRN Hypoglycemia Protocol Heparin Sodium (Porcine) 1,000 units 02/11/25 11:47 02/11/25 12:03 Heparin Sodium 1,000 Units/Ml Vial IV PUSH 1,000 units Q1H PRN Administration DIALYSIS Heparin Sodium (Porcine) 5,000 units 02/19/25 09:00 02/26/25 09:11 Heparin Sodium 5,000 Units/Ml Vial SUB-Q 5,000 units Q12HR MARGUERITE Administration Hydroxyzine HCl 25 mg 02/16/25 12:22 02/19/25 20:46 Hydroxyzine Hcl 25 Mg Tablet PO 25 mg Q8H PRN Administration Itching Dextrose 1,000 mls @ 100 mls/hr 02/05/25 21:36 Dextrose 5% 1,000 Ml IVPB PRN PRN Hypoglycemia Protocol Albumin Human 50 mls @ 999 mls/hr 02/09/25 06:57 Albutein IVPB 03/11/25 06:56 Q10M PRN HYPOTENSION Insulin Aspart 4 - 8 units 02/06/25 08:00 02/26/25 16:44 Insulin Aspart (*Bkc) 100 Units/Ml SUB-Q Not Given TIDWM MARGUERITE Protocol Insulin Aspart 2 - 4 units 02/05/25 21:45 02/25/25 21:30 Insulin Aspart (*Bkc) 100 Units/Ml SUB-Q 2 units HS MARGUERITE Administration Protocol Lisinopril 5 mg 02/16/25 09:00 02/26/25 09:11 Lisinopril 5 Mg Tablet PO 5 mg DAILY MARGUERITE Administration Metoprolol Tartrate 50 mg 02/25/25 21:00 02/26/25 09:11 Metoprolol Tartrate 50 Mg Tab PO 50 mg Q12HR MARGUERITE Administration Miscellaneous Information 1 each 02/25/25 00:01 Please Renew Lorazepam 0.5 Mg. Per [employer] Procedure, It Will Discontinue If Not Renewed XX 03/27/25 00:00 CLARIFY MARGUERITE Multi-Ingred Cream/Lotion/Oil/Oint 1 applic 02/13/25 09:00 02/26/25 09:11 Eucerin Cream 120 Gm Jar TOPICAL 1 applic DAILY MARGUERITE Administration Ondansetron HCl 4 mg 02/05/25 20:41 02/26/25 17:31 Ondansetron Inj 4 Mg/2 Ml Vial IV PUSH 4 mg Q6H PRN Administration Nausea And Vomiting Ondansetron HCl 4 mg 02/22/25 13:15 02/22/25 13:23 Ondansetron Hcl Odt 4 Mg Tablet PO 4 mg Q6H PRN Administration Nausea And Vomiting Pantoprazole Sodium 40 mg 02/14/25 09:00 02/26/25 09:11 Pantoprazole 40 Mg Tablet PO 40 mg DAILY MARGUERITE Administration Radiology Results: ITS Impressions Renal Ultrasound 02/06/25 17:09 IMPRESSION: Right kidney is unremarkable. Left kidney is not visualized. Renal Biopsy CT 02/13/25 10:19 IMPRESSION: 1. Successful CT-guided random left kidney biopsy. Chest X-Ray 02/18/25 12:30 Impression: CHF Central Venous Line 02/18/25 12:38 IMPRESSION: 1. Fluoroscopy utilized during dialysis catheter replacement. See procedure note for further detail. Venous Doppler Study 02/23/25 14:33 Impression: Negative for DVT. Femur CT 02/25/25 08:26 IMPRESSION: 1. Diffuse edema of the subcutaneous fat. No abscess. 2. Mild polyarticular osteoarthritis. 3. Markedly distended bladder. Lexiscan Stress Test 02/26/25 12:53 IMPRESSION: 1. Normal myocardial perfusion at rest and during stress. 2. Left ventricular ejection fraction measuring 69%. Labs Labs: Laboratory Results - last 24 hr 02/25/25 02/25/25 02/26/25 19:57 19:59 07:27 POC Capillary Glucose 207 H 211 H 128 H 02/26/25 02/26/25 12:34 16:34 POC Capillary Glucose 116 H 141 H Hospitalist MIPS Advance Care Plan I have confirmed that the patient's Advanced Care Plan is present, code status is documented, or surrogate decision maker is listed in patient medical record.: Yes Medication Reconciliation I have utilized all available resources to obtain, update and review the patients current medications (includes all prescriptions, OTC, herbals, cannabis, and nutritional supplements).: Yes
[2025-02-26 19:53] VITALS: BP 116/50; PULSE 76; RESP 20; TEMP 36.3; O2SAT 99
[2025-02-26 20:19] VITALS: PULSE 76
[2025-02-27] VITALS (21 sets, daily range): BP systolic 135–182; BP diastolic 53–85; PULSE 69–77; RESP 14–18; TEMP 37–37.1; O2SAT 97–100
[2025-02-27 05:23] LABS: Hematocrit 31.3 % (37.0-47.0); Hemoglobin 9.0 g/dL (12.0-15.0); Immature Granulocyte Percent A 0.5 % (0-0.5); Lymphocytes Absolute Auto 2.15 K/mm3 (0.9-3.2); Mean Corpuscular HGB Conc 28.8 g/dl (32-36); Mean Corpuscular Hemoglobin 23.9 pg (26-34); Mean Corpuscular Volume 83.2 fl (80-100); Nucleated Red Blood Cells Absolute Auto 0.000 K/mm3 (0.0-0.012); Nucleated Red Blood Cells Perc 0.0 % (0.0-0.2); Platelet Count Result 809 k/mm3 (150-375); Red Blood Count 3.76 M/mm3 (4.2-5.4); White Blood Count 10.0 K/mm3 (4.5-10.0)
[2025-02-27 05:47] LABS: Alanine Aminotransferase 7 U/L (6-35); Albumin Level 3.3 g/dL (3.5-5.1); Alkaline Phosphatase 105 U/L (38-126); Anion Gap 6 mmol/L (4-12); Aspartate Amino Transferase 18 U/L (14-36); Bilirubin,Total 0.5 mg/dL (0.2-1.3); Blood Urea Nitrogen 30 mg/dL (7-17); Calcium 8.3 mg/dL (8.4-10.2); Carbon Dioxide 30 mmol/L (22-30); Chloride 96 mmol/L (98-107); Estimated CRCL calculation 16 ml/min; Estimated Glomerular Filt Rate 10; Glucose 115 mg/dL (65-110); Potassium 3.9 mmol/L (3.4-5.0); Sodium 132 mmol/L (137-145); Total Protein 6.4 g/dL (6.3-8.2)
[2025-02-27 05:52] LABS: Hypochromasia 1+; Ovalocytes 1+
[2025-02-27 05:53] LABS: Schistocytes None Seen; Target Cells Occasional
[2025-02-27] MEDS: EPOETIN ALFA-EPBX 10,000 UNITS/ML VIAL 10000 UNITS IV PUSH (11:21)
--- NOTE | 2025-02-27 12:10 | P.PNNP_ITS ---
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 - findings consistent with ischemic injury, vascular disease and diabetes - severe/diffuse interstitial fibrosis and tubular atrophy (~ 90%) * renal biopsy findings likely explains presentation: * volume overload * anasarca * metabolic acidosis * anemia * evaluation since admission already noted: * urine electrolytes non-prerenal * UA with blood and protein * CPK mildly elevated but not enough to affect kidney function * renal ultrasound okay (unable to visualize left kidney) * nephrotic range proteinuria noted (> 10 grams) * negative serological evaluation to date * elevated CRP and ESR noted * no significant improvement with IV diuretic therapy * s/p HD catheter placement on 02/08 * initiated on EQUIPMENT SERVICE TECHNICIAN/HD on 02/08 * s/p daily HD/DUF for clearance and fluid removal * s/p new RIJ HD catheter placed (on 02/18) due previous dysfunctional HD cathether * HD today * continue M/W/F dialysis schedule as this will be her outpatient schedule (2) Volume overload: Code(s): E87.70 - Fluid overload, unspecified Status: Acute Assessment and Plan: * slow improvement * as noted by clinical exam (anasarca) * multifactorial etiology: * renal dysfunction * nephrotic range proteinuria/nephrotic syndrome * cardiomyopathy * vascular disease * no real improvement with previous IV diuretics on admission * however, still making some urine with diuretics * continue oral bumex of non-dialysis days * continue fluid removal with HD/DUF as tolerated * almost 27L negative since admission.... (3) Metabolic acidosis: Code(s): E87.20 - Acidosis, unspecified Status: Acute Assessment and Plan: * resolved (4) Cardiomyopathy: Code(s): I42.9 - Cardiomyopathy, unspecified Status: Acute Assessment and Plan: * acute versus chronic? * ischemic versus non-ischemic? * Echo results noted (02/06): * left ventricular systolic function is severely reduced, estimated at 30 - 35% * left ventricular diastolic function is grade I diastolic dysfunction * mild to moderate mitral valve regurgitation * mild to moderate tricuspid valve regurgitation * moderate pulmonary hypertension, estimated pulmonary arterial systolic pressure is 47 mmHg * mild pulmonic regurgitation * recent stress test (02/26) with improvement in EF * Cardiology following (5) Hypertension: Qualifiers: Hypertension type: primary hypertension Qualified Code(s): I10 - Essential (primary) hypertension Code(s): I10 - Essential (primary) hypertension Status: Acute Assessment and Plan: * quite elevated on ER presentation (systolic BP > 200) * better control in general * on low dose lisinopril - titrate as needed * metoprolol and amlodipine added by Cardiology * follow trend of hemodynamics (6) Anemia: Qualifiers: Anemia type: due to chronic kidney disease Chronic kidney disease stage: unspecified stage Qualified Code(s): N18.9 - Chronic kidney disease, unspecified; D63.1 - Anemia in chronic kidney disease Code(s): D64.9 - Anemia, unspecified Status: Acute Assessment and Plan: * at least partly related to renal dysfunction * anemia studies demonstrate iron deficiency * s/p IV iron * Epogen with HD * follow trend of H/H (7) Renal osteodystrophy: Code(s): N25.0 - Renal osteodystrophy Status: Acute Assessment and Plan: * calcium and phosphorus stable * Vitamin D low -- on ergocalciferol * PTH in range (8) Diabetes: Qualifiers: Diabetes mellitus type: type 2 Diabetes mellitus extermination supervisor insulin use: without retirement use Diabetes mellitus complication status: with kidney complications Diabetes mellitus complication detail: with chronic kidney disease Chronic kidney disease stage: unspecified stage Qualified Code(s): E 11.22 - Type 2 diabetes mellitus with diabetic chronic kidney disease Code(s): E11.9 - Type 2 diabetes mellitus without complications Status: Chronic Assessment and Plan: * follow accu-cheks * glycemic control per hospitalist Not opposed to discharge from renal perspective if otherwise medically stable and outpatient SNF/rehab has been finalized. Will continue to follow. L Subjective Date/time seen: 02/27/25 12:10 Interval history: Follow-up for newly diagnosed end stage renal disease. Tolerating dialysis treatment at the time of my visit (seen on HD at 12:00pm) and just about done with it; no apparent distress noted when seen; stress test done yesterday with improvement in cardiac function; no events overnight or earlier this morning. Exam 2 Narrative: General: WD/WN female in NAD Heart: normal S1 and S2; no rub Lungs: decreased at the bases Abdomen: obese but soft, nontender, nondistended, positive bowel sounds Extremities: no cyanosis or clubbing; trace edema in RLE and BUEs; s/p left BKA Skin: warm and dry Objective Data Vital Signs Vital Signs: Vital Signs Temp Pulse Resp BP Pulse Ox O2 Del Method 02/27/25 12:09 98.6 F 77 16 176/85 H 98 02/27/25 12:02 73 182/83 H 02/27/25 11:45 70 161/72 H 02/27/25 11:30 73 152/73 H 02/27/25 11:15 74 169/72 H 02/27/25 11:00 69 163/71 H 02/27/25 10:45 69 166/71 H 02/27/25 10:30 71 163/72 H 02/27/25 10:15 69 161/72 H 02/27/25 10:00 70 153/70 H 02/27/25 09:45 69 149/69 H 02/27/25 09:30 71 140/68 02/27/25 09:15 71 153/69 H 02/27/25 09:00 75 143/67 H 02/27/25 08:45 73 163/76 H 02/27/25 08:31 74 144/71 H 02/27/25 08:15 98.6 F 73 16 157/76 H 100 02/27/25 08:00 Room Air 02/27/25 03:55 98.8 F 75 18 135/53 L 97 02/26/25 20:19 76 02/26/25 19:53 97.3 F L 76 20 116/50 L 99 Intake/Output Intake/Output: Intake & Output 02/24/25 02/25/25 02/26/25 02/27/25 22:59 23:59 23:59 23:59 Intake Total 782 830 790 530 Output Total 6107 3462 2460 Balance -857 -5494 798 -9854 Meds/Results Medications: Active Medications Generic Name Dose Route Start Last Admin Trade Name Freq PRN Reason Stop Dose Admin Acetaminophen 650 mg 02/05/25 20:41 02/22/25 08:00 Acetaminophen 325 Mg Tablet PO 650 mg Q4H PRN Administration Mild Pain (1-5) Or Fever Hydrocodone Bitart/Acetaminophen 1 tab 02/19/25 07:13 02/26/25 12:48 Hydrocodone/Acetaminophen (*Crx) 5-325 Mg Tablet PO 1 tab Q6H PRN Administration Pain Rated 6 or Greater Alteplase, Recombinant 2 mg 02/16/25 09:21 02/16/25 09:30 Alteplase 2 Mg Vial (Cathflo) IV PUSH 2 mg ONCE PRN Administration Line Occlusion Alteplase, Recombinant 2 mg 02/16/25 09:24 02/16/25 09:30 Alteplase 2 Mg Vial (Cathflo) IV PUSH 2 mg ONCE PRN Administration Line Occlusion Amlodipine Besylate 5 mg 02/25/25 09:00 02/27/25 13:17 Amlodipine Besylate 5 Mg Tablet PO 5 mg DAILY MARGUERITE Administration Bumetanide 2 mg 02/17/25 09:00 02/26/25 09:13 Bumetanide 1 Mg Tablet PO 2 mg SuTuThSa MARGUERITE Administration Buspirone HCl 10 mg 02/10/25 12:43 02/27/25 14:43 Buspirone Hcl 10 Mg Tablet PO 10 mg BID PRN Administration Anxiety Dextrose 12.5 gm 02/05/25 21:36 Dextrose 50% 25 Gm/50 Ml Syringe IV PUSH PRN PRN Hypoglycemia Protocol Epoetin Sergio-epbx 10,000 units 02/27/25 18:03 02/27/25 11:21 Epoetin Sergio-Epbx 10,000 Units/Ml Vial IV PUSH 02/27/25 18:04 10,000 units ONCE ONE Administration Ergocalciferol 1,250 mcg 02/15/25 09:00 02/22/25 07:59 Ergocalciferol (Vitamin D2) 1,250 Mcg (50,000 Units) Capsule PO 1,250 mcg WEEKLY MARGUERITE Administration Escitalopram Oxalate 10 mg 02/14/25 07:00 02/27/25 13:18 Escitalopram Oxalate 10 Mg Tablet PO 10 mg DAILY MARGUERITE Administration Glucagon 1 mg 02/05/25 21:36 Glucagon For Inj 1 Mg Vial IM PRN PRN Hypoglycemia Protocol Glucose 15 gm 02/05/25 21:36 Glucose Oral Gel 15 Gm Of Glucse In 37.5 Gm Tube PO PRN PRN Hypoglycemia Protocol Heparin Sodium (Porcine) 1,000 units 02/11/25 11:47 02/11/25 12:03 Heparin Sodium 1,000 Units/Ml Vial IV PUSH 1,000 units Q1H PRN Administration DIALYSIS Heparin Sodium (Porcine) 5,000 units 02/19/25 09:00 02/27/25 13:18 Heparin Sodium 5,000 Units/Ml Vial SUB-Q 5,000 units Q12HR MARGUERITE Administration Hydroxyzine HCl 25 mg 02/16/25 12:22 02/19/25 20:46 Hydroxyzine Hcl 25 Mg Tablet PO 25 mg Q8H PRN Administration Itching Dextrose 1,000 mls @ 100 mls/hr 02/05/25 21:36 Dextrose 5% 1,000 Ml IVPB PRN PRN Hypoglycemia Protocol Albumin Human 50 mls @ 999 mls/hr 02/09/25 06:57 Albutein IVPB 03/11/25 06:56 Q10M PRN HYPOTENSION Insulin Aspart 4 - 8 units 02/06/25 08:00 02/27/25 13:19 Insulin Aspart (*Bkc) 100 Units/Ml SUB-Q Not Given TIDWM MARGUERITE Protocol Insulin Aspart 2 - 4 units 02/05/25 21:45 02/26/25 20:26 Insulin Aspart (*Bkc) 100 Units/Ml SUB-Q Not Given HS [facility] Protocol Lisinopril 5 mg 02/16/25 09:00 02/27/25 13:18 Lisinopril 5 Mg Tablet PO 5 mg DAILY MARGUERITE Administration Metoprolol Tartrate 50 mg 02/25/25 21:00 02/27/25 13:18 Metoprolol Tartrate 50 Mg Tab PO 50 mg Q12HR MARGUERITE Administration Multi-Ingred Cream/Lotion/Oil/Oint 1 applic 02/13/25 09:00 02/27/25 13:18 Eucerin Cream 120 Gm Jar TOPICAL 1 applic DAILY MARGUERITE Administration Ondansetron HCl 4 mg 02/05/25 20:41 02/26/25 17:31 Ondansetron Inj 4 Mg/2 Ml Vial IV PUSH 4 mg Q6H PRN Administration Nausea And Vomiting Ondansetron HCl 4 mg 02/22/25 13:15 02/22/25 13:23 Ondansetron Hcl Odt 4 Mg Tablet PO 4 mg Q6H PRN Administration Nausea And Vomiting Pantoprazole Sodium 40 mg 02/14/25 09:00 02/27/25 13:18 Pantoprazole 40 Mg Tablet PO 40 mg DAILY MARGUERITE Administration Radiology Results: ITS Impressions Renal Ultrasound 02/06/25 17:09 IMPRESSION: Right kidney is unremarkable. Left kidney is not visualized. Renal Biopsy CT 02/13/25 10:19 IMPRESSION: 1. Successful CT-guided random left kidney biopsy. Chest X-Ray 02/18/25 12:30 Impression: CHF Central Venous Line 02/18/25 12:38 IMPRESSION: 1. Fluoroscopy utilized during dialysis catheter replacement. See procedure note for further detail. Venous Doppler Study 02/23/25 14:33 Impression: Negative for DVT. Femur CT 02/25/25 08:26 IMPRESSION: 1. Diffuse edema of the subcutaneous fat. No abscess. 2. Mild polyarticular osteoarthritis. 3. Markedly distended bladder. Lexiscan Stress Test 02/26/25 12:53 IMPRESSION: 1. Normal myocardial perfusion at rest and during stress. 2. Left ventricular ejection fraction measuring 69%. Labs Labs: Laboratory Tests 02/27/25 05:11 02/27/25 05:11 Calcium 8.3 L Total Bilirubin 0.5 AST 18 ALT 7 Alkaline Phosphatase 105 Total Protein 6.4 Albumin 3.3 L
[2025-02-27] MEDS: PANTOPRAZOLE 40 MG TABLET PO (13:18)
[2025-02-27] MEDS: ESCITALOPRAM OXALATE 10 MG TABLET PO (13:18)
[2025-02-27] MEDS: METOPROLOL TARTRATE 50 MG TAB PO (13:18)
[2025-02-27] MEDS: EUCERIN CREAM 120 GM JAR 1 APPLIC TOPICAL (13:18)
--- NOTE | 2025-02-27 13:30 | P.DS_ITS ---
DS: Admitting Diagnosis Discharge Date 02/27/25 Admitting Diagnosis New ESRD DS: Discharge Diagnosis Discharge Diagnosis (1) Acute on chronic systolic and diastolic heart failure, NYHA class 1: Code(s): I50.43 - Acute on chronic combined systolic (congestive) and diastolic (congestive) heart failure Status: Acute (2) End stage renal disease: Code(s): N18.6 - End stage renal disease Status: Chronic (3) Hypertension: Qualifiers: Hypertension type: primary hypertension Qualified Code(s): I10 - Essential (primary) hypertension Code(s): I10 - Essential (primary) hypertension Status: Acute (4) Anxiety: Code(s): F41.9 - Anxiety disorder, unspecified Status: Acute (5) Diabetes: Qualifiers: Chronic kidney disease stage: unspecified stage Diabetes mellitus complication detail: with chronic kidney disease Diabetes mellitus complication status: with kidney complications Diabetes mellitus usp insulin use: without long line teamster use Diabetes mellitus type: type 2 Qualified Code(s): E11.22 - Type 2 diabetes mellitus with diabetic chronic kidney disease Code(s): E11.9 - Type 2 diabetes mellitus without complications Status: Chronic (6) Status post below-knee amputation of left lower extremity: Code(s): Z89.512 - Acquired absence of left leg below knee Status: Acute DS: Summary Hospital Course Hospital Course: Primary Diagnosis:?End-stage renal disease (ESRD) secondary to advanced nephrosclerosis and class IV diabetic glomerulopathy Secondary Diagnoses: * Acute decompensated heart failure with reduced ejection fraction (HFrEF, EF 30?35%) * Type 2 diabetes mellitus, poorly controlled * Hypertension * Anemia of chronic kidney disease * Renal osteodystrophy * Anxiety disorder * History of left below-knee amputation (BKA) and right great toe amputation * Obesity Reason for Admission 44-year-old woman with a history of poorly controlled type 2 diabetes, hypertension, CKD, left BKA, and prior DKA, presenting with progressive shortness of breath, generalized edema, and malaise. She had been off all medications and out of care for two years. Hospital Course Initial Presentation: Patient presented to the ER with [id number] shortness of breath, anasarca, and right lower extremity swelling. She was found to be hypertensive (BP >200/100), hypoxic, and in acute renal failure (Cr 10.26, BUN 78, GFR 4). Labs showed severe metabolic acidosis (CO? <5), hyperkalemia, anemia, and nephrotic- range proteinuria. CXR showed mild CHF; BNP >30,000. Cardiac Evaluation: Echocardiogram revealed severely reduced LV systolic function (EF 30?35%), grade I diastolic dysfunction, mild-moderate MR/TR, and moderate pulmonary hypertension. No prior echo for comparison. Cardiology recommended IV diuresis, GDMT as tolerated, and outpatient ischemic evaluation. Renal Evaluation: Nephrology noted unclear chronicity of renal failure, with prior Cr 1.5 in 2022. Urine studies were non-prerenal; UA showed blood and protein. Renal US: right kidney unremarkable, left kidney not visualized. Diuretic response was poor; celi fortune developed worsening anasarca and metabolic derangements. Renal biopsy (02/12) confirmed advanced nephrosclerosis and class IV diabetic glomerulopathy with ?90% interstitial fibrosis and tubular atrophy, consistent with ESRD. Volume Management: Initial management with IV Bumex and later Lasix drip was unsuccessful. Patient required placement of a tunneled right subclavian HD catheter (02/08) and initiation of hemodialysis. Due to catheter dysfunction and right arm swelling, a right internal jugular tunneled HD catheter was placed (02/18), and the subclavian catheter was removed. Diabetes Management: A1c 8.6% on admission. Blood glucose controlled with sliding scale insulin and correctional regimen. analysis consultant and dietitian consulted. Hypertension: Markedly elevated on admission, attributed to volume overload and medication nonadherence. Treated with carvedilol (titrated up to 25 mg BID), hydralazine (later switched to lisinopril as tolerated), and fluid removal with HD. Anemia: Chronic anemia (Hgb 7?10 g/dL), iron deficiency confirmed. Treated with IV iron(800mg IV ) and Epogen with HD. No transfusions required. Renal Osteodystrophy: Vitamin D deficiency treated with ergocalciferol. Calcium and phosphorus stable. PTH in range. Other Issues: * Anxiety managed with buspirone, hydroxyzine, and PRN lorazepam. * No evidence of DVT on duplex for right upper extremity swelling. * No infectious complications of dialysis access. * Discharge planning included coordination for outpatient HD at [facility] ([facility] schedule), with social work assisting with transportation. Discharge Medications * Metoprolol 50 mg PO BID (with holding parameters) * Lisinopril?(dose per nephrology/cardiology, as tolerated) * Bumetanide?PO on non-dialysis days * Insulin?per sliding scale and correctional regimen * Epogen?with HD * Ergocalciferol?(Vitamin D) as prescribed * Buspirone?10 mg BID PRN for anxiety * Lorazepam?PRN for anxiety * Amlodipine 5mg daily * Other home medications?as appropriate and reviewed Discharge Condition * Afebrile, hemodynamically stable * Tolerating diet, ambulating with assistance * No chest pain, shortness of breath, or acute complaints * Edema improved but still present * HD access functioning well Discharge Instructions * Dialysis:?Outpatient HD at [facility] schedule. First session scheduled; transportation arranged. * Medications:?Take as prescribed. Bring all medications to dialysis and follow up with nephrology for medication adjustments. * Diet:?Renal diet as instructed by dietitian. * Fluid restriction:?As advised by nephrology. * Weight monitoring:?Daily weights at home if possible. * Wound care:?Monitor HD catheter site for signs of infection (redness, swelling, drainage). * Follow-up appointments: * Nephrology: as instructed * Cardiology: as instructed * Primary care: as instructed * analysis consultant/dietitian as arranged * Emergency:?Return to ED for chest pain, severe shortness of breath, fever, rigors, bleeding, or signs of catheter infection. Status at Discharge Cognitive/behavioral status at discharge: stable Time Spent with Patient Time attestation: Total time spent providing and/or coordinating discharge services: Exam Narrative: HEENT: PERRL, sclerae nonicteric, pharyngeal mucosa pink and intact NECK: No JVD, adenopathy, or thyromegaly CHEST: Clear to auscultation. Normal effort. Hemodialysis catheter in place HEART: NL S1/S2, regular, no murmur ABDOMEN: BS+, soft, nontender, no mass, no bruits EXTREMITIES: No cyanosis, edema, or clubbing NEUROLOGIC: CN intact and symmetric to inspection. MUSCULOSKELETAL: Right BKA and left great toe amputation noted PSYCH: Alert. Oriented to person, place, and time Const: General: no acute distress and uncomfortable Other: , female, nontoxic appearance HENMT: Face/Nose/Sinus: Normal nares present Mouth: Yes moist mucous membranes and Yes dry mucous membranes Eyes: General: appearance normal, both eyes and all related structures Sclera: sclerae normal Pupils: Equal, round and reactive pupils present EOM: EOMs intact bilaterally Neck: Neck: supple Resp: Effort & Inspection: normal respiratory effort Other: Bilateral lower lungs diminished lung sounds Cardio: Rate: regular rate Rhythm: regular rhythm Other: S1-S2 present without murmur, rub, ectopy GI: Inspection: non-distended Auscultation: abnormal bowel sounds (hypo, all quadrants) Other: Abdomen soft, nondistended, nontender. Skin: General skin exam: normal color and no rashes or lesions noted Other: Small scattered small areas of eschar less than 1 cm to bilateral shoulders, upper extremities, and forehead with no signs of infection. RLE: Normal inspection HD catheter to R subclavian Neuro: Cranial nerves: Yes Equal, round and reactive pupils present Speech: normal speech Sensory Exam: normal sensation Other: A&O x4, generalized weakness Extrem: Other: Left BKA. RLE trace. Thighs symmetric. RUE & LUE 1+ pitting edema Psych: Mental Status: mental status grossly normal Affect: normal affect and Anxious affect present Other: Good insight and judgment, very pleasant DS: Data Data Completed and Pending Completed studies during hospitalization: Pending at discharge 02/13/25 09:38 Surgical [PTH] Routine Labs on day of discharge: Labs from last 24 hours 02/27/25 02/27/25 02/27/25 12:52 07:24 05:11 WBC 10.0 RBC 3.76 L Hgb 9.0 L Hct 31.3 L MCV 83.2 MCH 23.9 L MCHC 28.8 L RDW 21.1 H Plt Count 809 H MPV 9.2 Immature Gran % (Auto) 0.5 Neut % (Auto) 59.6 Lymph % (Auto) 21.5 Casey % (Auto) 13.8 H Eos % (Auto) 3.7 Baso % (Auto) 0.9 Lymph # (Auto) 2.15 Casey # (Auto) 1.4 H Eos # (Auto) 0.4 H Baso # (Auto) 0.1 Abs Immat Gran (auto) 0.05 H Absolute Neuts (auto) 6.0 Absolute Nucleated RBC 0.000 Band Neutrophils % Not Reportable Nucleated RBC % 0.0 Platelet Estimate Increased Hypochromasia 1+ Target Cells Occasional Ovalocytes 1+ Schistocytes None seen Sodium 132 L Potassium 3.9 Chloride 96 L Carbon Dioxide 30 Anion Gap 6 BUN 30 H Creatinine 4.70 H Estim Creat Clear Calc 16 Estimated GFR 10 L Glucose 115 H POC Capillary Glucose 93 112 H Calcium 8.3 L Total Bilirubin 0.5 AST 18 ALT 7 Alkaline Phosphatase 105 Total Protein 6.4 Albumin 3.3 L 02/26/25 02/26/25 19:58 16:34 WBC RBC Hgb Hct MCV MCH MCHC RDW Plt Count MPV Immature Gran % (Auto) Neut % (Auto) Lymph % (Auto) Casey % (Auto) Eos % (Auto) Baso % (Auto) Lymph # (Auto) Casey # (Auto) Eos # (Auto) Baso # (Auto) Abs Immat Gran (auto) Absolute Neuts (auto) Absolute Nucleated RBC Band Neutrophils % Nucleated RBC % Platelet Estimate Hypochromasia Target Cells Ovalocytes Schistocytes Sodium Potassium Chloride Carbon Dioxide Anion Gap BUN Creatinine Estim Creat Clear Calc Estimated GFR Glucose POC Capillary Glucose 174 H 141 H Calcium Total Bilirubin AST ALT Alkaline Phosphatase Total Protein Albumin Discharge Plan Discharge Attending physician on discharge: Juan Antonio Lewis Oca Consulting providers: Aysha Shaikh; Arlen Olivares; Della Villatoro; Nolan Johnson Discharging Clinician: Juan Antonio Lewis Oca Anticipated Discharge Date/Time: 02/20/25 12:00 Patient Disposition: SNF Activity: no shower and other - see discharge instructions Diet: diabetic and renal Discharge Instructions: 1. Follow-up with your primary care provider to continue to monitor your iron status, sleep apnea work-up, and stool softener. Your scheduled PCP appointment is located at [address] [address], P: [phone] on February 26, 2025 @ 2:00PM. [facility] is willing to provide services once your appointment with PCP is completed. 2. Also make sure to follow-up with cardiology for an outpatient stress test and life vest management as discussed. 3. Care Coordination: Patient scheduled with [facility] once she is discharged from SNF and return home for her primary [facility] Location: Chair time M-W- @ 3:00PM. Patient will discharge to [facility] and receive PT, OT and other therapy services. Patient will attend [facility] in [place] ([address], [place] [address]) starting March 01, 2025, with chair time listed as 2:30PM (while attending SNF). SAMANTHA established a PCP for patient located in [address] [place] [address] ([facility]). Home Health through [facility] can follow patient after PCP appointment has been completed. Notify your PCP of Home Health through [facility]. [facility] ?[phone] Patient Instructions: Antibiotic Form Patient Language: Yoruba Stand Alone Forms: General Discharge Information, Senior Care Discharge Follow-up/Referrals: Nolan Johnson MD [Physician, Cardiology] Referral Note: Follow-up with cardiology as instructed Della Villatoro MD [Physician, Nephrology] Referral Note: Follow with Nephrology as instructed PHYSICIAN,PROFESSIONAL SERVICES CONSULTANT [Primary Care Provider, Internal Medicine] Referral Note: Follow it is PCP in 3-5 days Discharge Medications: New acetaminophen 325 mg Tablet 650 mg PO Q4H PRN (Reason: Mild Pain (1-3) Or Fever) Qty: 30 0RF buspirone 10 mg Tablet 10 mg PO BID PRN (Reason: Anxiety) Qty: 60 0RF lisinopril 5 mg Tablet 5 mg PO DAILY Qty: 30 1RF bumetanide 1 mg Tablet 2 mg PO SuTuThSa 30 Days Qty: 36 0RF ergocalciferol (vitamin D2) 1,250 mcg (50,000 unit) Capsule 1,250 mcg PO WEEKLY 30 Days Qty: 5 0RF amlodipine 5 mg tablet 5 mg PO DAILY 30 Days Qty: 30 0RF metoprolol tartrate 50 mg Tablet 50 mg PO Q12HR 30 Days Qty: 60 0RF Continued pantoprazole 40 mg Tablet,Delayed Release (Dr/Ec) 40 mg PO Q12HR Qty: 60 0RF escitalopram oxalate 10 mg Tablet 10 mg PO DAILY Qty: 30 0RF Levemir FlexPen 100 unit/mL (3 mL) insulin pen 20 unit subcut HS 30 Days Qty: 15 0RF Discontinued cyclobenzaprine 10 mg Tablet 5 mg PO Q8H PRN (Reason: Muscle Spasm) Qty: 30 0RF carvedilol [Coreg] 3.125 mg Tablet 3.125 mg PO Q12HR Qty: 60 0RF hydralazine 50 mg Tablet 50 mg PO Q6HR Qty: 120 0RF Date of admission: 02/07/25 10:53 Primary Care Provider: PHYSICIAN,PROFESSIONAL SERVICES CONSULTANT Admitting Provider: Jairo Meyer Attending physician on admission: Jairo Meyer Condition: Improved Hospitalist MIPS Heart Failure (Exclusion) Patient has history of Heart Transplant or Left Ventricular Assistive Device?: No IF YES, STOP HERE Heart Failure (Qualifier) Patient has current or prior documentation of LVEF less than or equal to 40%, or mod/servere depressed LVSF?: Yes IF NO, STOP HERE If Yes, Heart Failure (Qualifier) Patient was prescribed or already taking an Angiotensin-Converting Enzyme (KASI) Inhibitor, or Antiotensin Receptor Tyler (ARB): Yes Patient was prescribed or already taking bisoprolol, carvedilol, or sustained release metoprolol succinate: Yes
--- NOTE | 2025-02-27 13:44 | P.PNCA_ITS ---
Progress Note: A&P Assessment and Plan (1) Acute on chronic systolic and diastolic heart failure, NYHA class 1: Code(s): I50.43 - Acute on chronic combined systolic (congestive) and diastolic (congestive) heart failure Status: Acute (2) Volume overload: Code(s): E87.70 - Fluid overload, unspecified Status: Acute (3) End stage renal disease: Code(s): N18.6 - End stage renal disease Status: Chronic (4) Cardiomyopathy: Code(s): I42.9 - Cardiomyopathy, unspecified Status: Acute (5) Hypertension: Qualifiers: Hypertension type: primary hypertension Qualified Code(s): I10 - Essential (primary) hypertension Code(s): I10 - Essential (primary) hypertension Status: Acute (6) Diabetes: Qualifiers: Diabetes mellitus type: type 2 Diabetes mellitus parts counterman insulin use: without parts counterman use Diabetes mellitus complication status: with kidney complications Diabetes mellitus complication detail: with chronic kidney disease Chronic kidney disease stage: unspecified stage Qualified Code(s): E11.22 - Type 2 diabetes mellitus with diabetic chronic kidney disease Code(s): E11.9 - Type 2 diabetes mellitus without complications Status: Chronic (7) Status post below-knee amputation of left lower extremity: Code(s): Z89.512 - Acquired absence of left leg below knee Status: Acute Plan 1. Patient with moderate to severe hypertension with hypertensive heart disease and severe hypertensive heart disease with left ventricular hypertrophy. Echocardiogram reveals reduced systolic function in range of 30-35% along with diastolic heart. Follow-up nuclear stress test on 02/26/2025 revealed preserved systolic function at 68% without any fixed or reversible defect. No suggestion of coronary artery disease. 2. Acute predominantly systolic and diastolic heart failure. Improved ejection fraction Pred 3. Cardiomyopathy with ejection fraction 30-35%. Etiology is likely chronic hypertensive heart disease. Cannot rule out coronary artery disease. Follow-up nuclear stress test shows ejection fraction improved to 68% and that raises suspicion for stress-induced cardiomyopathy on admission. 4. End-stage renal disease on hemodialysis started this admission. 5. Anemia of chronic disease. Recommendation: #. Blood pressure is stable on current medication for blood pressure. #. Workup negative for ischemic heart disease. Nuclear stress test shows preserved systolic function at 68% which is significantly improved from 35% on admission suggesting possibly stress-induced cardiomyopathy in this patient. #. Continue hemodialysis. Continue monitor blood pressure and adjust as needed. Okay to discharge this patient home from cardiac viewpoint. Discussed with the hospital attending. Thank you again for allowing us to participate in care this patient. Subjective Date/time seen: 02/27/25 13:44 Interval history: Review of HPI: Patient is 45-year-old female patient was discharged on 09/22/2022 after treatment for DKA and diabetic foot infection. Patient admitted on 02/05/2025 with shortness of breath and not feeling well. Patient has history of BKA on the left, history of hypertension and chronic kidney disease. Patient was severely hypertensive with blood pressure as 218/1 15 mm of mercury on admission. Hemoglobin was 10.6 and creatinine was 78. Patient was started on Bumex 2 mg b.i.d.. Subsequent echocardiogram on 02/06/2025 revealed normal left ventricular size an d ejection fraction of 30-35% with marked left ventricular hypertrophy and grade 1 diastolic dysfunction. There was [id number] tricuspid valve regurgitation. Patient was treated for acute on chronic combined systolic and diastolic heart failure. Patient had a right subclavian tunneled dialysis catheter which was no longer functional X 11/11/2024 and was replaced. Patient had removal of a right subclavian tunneled dialysis catheter and placement of right internal jugular tunneled dialysis catheter on 02/18/2025. Subjective: Patient examined at the bedside and appears to be comfortable. Nuclear stress test completed yesterday. Blood pressure is stable at 152/73 and 162/58 mm of mercury as of today. Heart rate is 70-77 per minute Currently patient is on carvedilol 25 mg q.12 hours lisinopril 5 mg daily, bumetanide 2 mg 3 times a week. Carvedilol was discontinued yesterday and patient was started on metoprolol tartrate 50 mg b.i.d. for blood pressure, amlodipine and hydralazine were started. No complaints of shortness of breath or chest pain. Blood pressure remains elevated Blood pressure should also come down as patient is on hemodialysis. Review of Systems Review of Systems: 12 point review of system was completed. Pertinent positive and negative findings per HPI. Pulmonary negative for shortness of breath, cough or hemoptysis. Cardiovascular system negative for chest pain, shortness of breath, leg edema or PND Renovascular system positive for hemodialysis through the right tunneled hemodialysis catheter Neurovascular is stable. Exam Narrative: Patient is awake alert appears to be comfortable without shortness of breath or chest pain. Head and neck examination is unremarkable. Neck is supple. There is no JVD or carotid bruit. And right jugular dialysis catheter is noted. Lungs are clear to auscultation percussion Heart sounds reveal normal S1-S2. Soft systolic murmurs noted. S3 is present. There is no S4. Abdomen is soft and nontender. There is no hepatosplenomegaly probable sounds present. Extremities revealed no pedal edema. Neurological examination is intact. Skin and musculoskeletal is negative. Objective Data Vital Signs Vital Signs: Vital Signs - 24 hr 02/26/25 14:00 02/26/25 19:53 02/26/25 20:19 Temperature 36.6 C 36.3 C L Pulse Rate 77 76 76 Respiratory Rate 12 20 Blood Pressure 144/60 H 116/50 L Pulse Oximetry 100 99 Oxygen Delivery 02/27/25 03:55 02/27/25 08:00 02/27/25 08:15 Temperature 37.1 C 37.0 C Pulse Rate 75 73 Respiratory Rate 18 16 Blood Pressure 135/53 L 157/76 H Pulse Oximetry 97 100 Oxygen Delivery Room Air 02/27/25 08:31 02/27/25 08:45 02/27/25 09:00 Temperature Pulse Rate 74 73 75 Respiratory Rate Blood Pressure 144/71 H 163/76 H 143/67 H Pulse Oximetry Oxygen Delivery 02/27/25 09:15 02/27/25 09:30 02/27/25 09:45 Temperature Pulse Rate 71 71 69 Respiratory Rate Blood Pressure 153/69 H 140/68 149/69 H Pulse Oximetry Oxygen Delivery 02/27/25 10:00 02/27/25 10:15 02/27/25 10:30 Temperature Pulse Rate 70 69 71 Respiratory Rate Blood Pressure 153/70 H 161/72 H 163/72 H Pulse Oximetry Oxygen Delivery 02/27/25 10:45 02/27/25 11:00 02/27/25 11:15 Temperature Pulse Rate 69 69 74 Respiratory Rate Blood Pressure 166/71 H 163/71 H 169/72 H Pulse Oximetry Oxygen Delivery 02/27/25 11:30 02/27/25 13:18 02/27/25 13:43 Temperature Pulse Rate 73 77 77 Respiratory Rate 14 Blood Pressure 152/73 H 162/58 H Pulse Oximetry 100 Oxygen Delivery Intake/Output Intake/Output: Intake & Output 02/24/25 02/25/25 02/26/25 02/27/25 22:59 23:59 23:59 23:59 Intake Total 782 830 790 410 Output Total 1400 2475 350 Balance -618 -5414 790 60 Meds/Results Medications: Active Medications Generic Name Dose Route Start Last Admin Trade Name Freq PRN Reason Stop Dose Admin Acetaminophen 650 mg 02/05/25 20:41 02/22/25 08:00 Acetaminophen 325 Mg Tablet PO 650 mg Q4H PRN Administration Mild Pain (1-5) Or Fever Hydrocodone Bitart/Acetaminophen 1 tab 02/19/25 07:13 02/26/25 12:48 Hydrocodone/Acetaminophen (*Crx) 5-325 Mg Tablet PO 1 tab Q6H PRN Administration Pain Rated 6 or Greater Alteplase, Recombinant 2 mg 02/16/25 09:21 02/16/25 09:30 Alteplase 2 Mg Vial (Cathflo) IV PUSH 2 mg ONCE PRN Administration Line Occlusion Alteplase, Recombinant 2 mg 02/16/25 09:24 02/16/25 09:30 Alteplase 2 Mg Vial (Cathflo) IV PUSH 2 mg ONCE PRN Administration Line Occlusion Amlodipine Besylate 5 mg 02/25/25 09:00 02/27/25 13:17 Amlodipine Besylate 5 Mg Tablet PO 5 mg DAILY MARGUERITE Administration Bumetanide 2 mg 02/17/25 09:00 02/26/25 09:13 Bumetanide 1 Mg Tablet PO 2 mg SuTuThSa MARGUERITE Administration Buspirone HCl 10 mg 02/10/25 12:43 02/26/25 12:48 Buspirone Hcl 10 Mg Tablet PO 10 mg BID PRN Administration Anxiety Dextrose 12.5 gm 02/05/25 21:36 Dextrose 50% 25 Gm/50 Ml Syringe IV PUSH PRN PRN Hypoglycemia Protocol Epoetin Sergio-epbx 10,000 units 02/27/25 18:03 02/27/25 11:21 Epoetin Sergio-Epbx 10,000 Units/Ml Vial IV PUSH 02/27/25 18:04 10,000 units ONCE ONE Administration Ergocalciferol 1,250 mcg 02/15/25 09:00 10/31/25 07:59 Ergocalciferol (Vitamin D2) 1,250 Mcg (50,000 Units) Capsule PO 1,250 mcg WEEKLY MARGUERITE Administration Escitalopram Oxalate 10 mg 02/14/25 07:00 02/27/25 13:18 Escitalopram Oxalate 10 Mg Tablet PO 10 mg DAILY MARGUERITE Administration Glucagon 1 mg 02/05/25 21:36 Glucagon For Inj 1 Mg Vial IM PRN PRN Hypoglycemia Protocol Glucose 15 gm 02/05/25 21:36 Glucose Oral Gel 15 Gm Of Glucse In 37.5 Gm Tube PO PRN PRN Hypoglycemia Protocol Heparin Sodium (Porcine) 1,000 units 02/11/25 11:47 02/11/25 12:03 Heparin Sodium 1,000 Units/Ml Vial IV PUSH 1,000 units Q1H PRN Administration DIALYSIS Heparin Sodium (Porcine) 5,000 units 02/19/25 09:00 02/27/25 13:18 Heparin Sodium 5,000 Units/Ml Vial SUB-Q 5,000 units Q12HR MARGUERITE Administration Hydroxyzine HCl 25 mg 02/16/25 12:22 02/19/25 20:46 Hydroxyzine Hcl 25 Mg Tablet PO 25 mg Q8H PRN Administration Itching Dextrose 1,000 mls @ 100 mls/hr 02/05/25 21:36 Dextrose 5% 1,000 Ml IVPB PRN PRN Hypoglycemia Protocol Albumin Human 50 mls @ 999 mls/hr 02/09/25 06:57 Albutein IVPB 03/11/25 06:56 Q10M PRN HYPOTENSION Insulin Aspart 4 - 8 units 02/06/25 08:00 02/27/25 13:19 Insulin Aspart (*Bkc) 100 Units/Ml SUB-Q Not Given TIDWM MARGUERITE Protocol Insulin Aspart 2 - 4 units 02/05/25 21:45 02/26/25 20:26 Insulin Aspart (*Bkc) 100 Units/Ml SUB-Q Not Given HS [facility] Protocol Lisinopril 5 mg 02/16/25 09:00 02/27/25 13:18 Lisinopril 5 Mg Tablet PO 5 mg DAILY MARGUERITE Administration Metoprolol Tartrate 50 mg 02/25/25 21:00 02/27/25 13:18 Metoprolol Tartrate 50 Mg Tab PO 50 mg Q12HR MARGUERITE Administration Multi-Ingred Cream/Lotion/Oil/Oint 1 applic 02/13/25 09:00 02/27/25 13:18 Eucerin Cream 120 Gm Jar TOPICAL 1 applic DAILY MARGUERITE Administration Ondansetron HCl 4 mg 02/05/25 20:41 02/26/25 17:31 Ondansetron Inj 4 Mg/2 Ml Vial IV PUSH 4 mg Q6H PRN Administration Nausea And Vomiting Ondansetron HCl 4 mg 02/22/25 13:15 02/22/25 13:23 Ondansetron Hcl Odt 4 Mg Tablet PO 4 mg Q6H PRN Administration Nausea And Vomiting Pantoprazole Sodium 40 mg 02/14/25 09:00 02/27/25 13:18 Pantoprazole 40 Mg Tablet PO 40 mg DAILY MARGUERITE Administration Radiology Results: ITS Impressions Renal Ultrasound 02/06/25 17:09 IMPRESSION: Right kidney is unremarkable. Left kidney is not visualized. Renal Biopsy CT 02/13/25 10:19 IMPRESSION: 1. Successful CT-guided random left kidney biopsy. Chest X-Ray 02/18/25 12:30 Impression: CHF Central Venous Line 02/18/25 12:38 IMPRESSION: 1. Fluoroscopy utilized during dialysis catheter replacement. See procedure note for further detail. Venous Doppler Study 02/23/25 14:33 Impression: Negative for DVT. Femur CT 02/25/25 08:26 IMPRESSION: 1. Diffuse edema of the subcutaneous fat. No abscess. 2. Mild polyarticular osteoarthritis. 3. Markedly distended bladder. Lexiscan Stress Test 02/26/25 12:53 IMPRESSION: 1. Normal myocardial perfusion at rest and during stress. 2. Left ventricular ejection fraction measuring 69%. Labs Labs: Laboratory Results - last 24 hr 02/26/25 02/26/25 02/27/25 16:34 19:58 05:11 WBC 10.0 RBC 3.76 L Hgb 9.0 L Hct 31.3 L MCV 83.2 MCH 23.9 L MCHC 28.8 L RDW 21.1 H Plt Count 809 H MPV 9.2 Immature Gran % (Auto) 0.5 Neut % (Auto) 59.6 Lymph % (Auto) 21.5 Mcintosh % (Auto) 13.8 H Eos % (Auto) 3.7 Baso % (Auto) 0.9 Lymph # (Auto) 2.15 Mcintosh # (Auto) 1.4 H Eos # (Auto) 0.4 H Baso # (Auto) 0.1 Abs Immat Gran (auto) 0.05 H Absolute Neuts (auto) 6.0 Absolute Nucleated RBC 0.000 Band Neutrophils % Not Reportable Nucleated RBC % 0.0 Platelet Estimate Increased Hypochromasia 1+ Target Cells Occasional Ovalocytes 1+ Schistocytes None seen Sodium 132 L Potassium 3.9 Chloride 96 L Carbon Dioxide 30 Anion Gap 6 BUN 30 H Creatinine 4.70 H Estim Creat Clear Calc 16 Estimated GFR 10 L Glucose 115 H POC Capillary Glucose 141 H 174 H Calcium 8.3 L Total Bilirubin 0.5 AST 18 ALT 7 Alkaline Phosphatase 105 Total Protein 6.4 Albumin 3.3 L 02/27/25 02/27/25 07:24 12:52 WBC RBC Hgb Hct MCV MCH MCHC RDW Plt Count MPV Immature Gran % (Auto) Neut % (Auto) Lymph % (Auto) Mcintosh % (Auto) Eos % (Auto) Baso % (Auto) Lymph # (Auto) Mcintosh # (Auto) Eos # (Auto) Baso # (Auto) Abs Immat Gran (auto) Absolute Neuts (auto) Absolute Nucleated RBC Band Neutrophils % Nucleated RBC % Platelet Estimate Hypochromasia Target Cells Ovalocytes Schistocytes Sodium Potassium Chloride Carbon Dioxide Anion Gap BUN Creatinine Estim Creat Clear Calc Estimated GFR Glucose POC Capillary Glucose 112 H 93 Calcium Total Bilirubin AST ALT Alkaline Phosphatase Total Protein Albumin
== END 2025-02-27 18:40 | DRG 194 ==
LOC: ANHIMU 02-08 08:52 → ANH2MED 02-09 15:10
PROVIDERS: Internal Medicine; Internal Medicine Nephrology; Student in an Organized Health Care Education/Training Program; Surgery; Admitting Provider Family Medicine; Visit Provider Student in an Organized Health Care Education/Training Program
PROC: 5A1D70Z Performance of Urinary Filtration, Intermittent, Less than 6 Hours Per Day (ICD-10-PCS; CPT 36908; principal; 2025-02-08 10:00)
PROC: 0JPT0XZ Removal of Tunneled Vascular Access Device from Trunk Subcutaneous Tissue and Fascia, Open Approach (ICD-10-PCS; CPT 36908; principal; 2025-02-18 12:00)
DX: I13.2 Hypertensive heart and chronic kidney disease with heart failure and with stage 5 chronic kidney disease, or end stage renal disease (principal); N17.9 Acute kidney failure, unspecified; E11.22 Type 2 diabetes mellitus with diabetic chronic kidney disease; D63.1 Anemia in chronic kidney disease; N18.6 End stage renal disease; I50.43 Acute on chronic combined systolic (congestive) and diastolic (congestive) heart failure; E87.21 Acute metabolic acidosis; E87.1 Hypo-osmolality and hyponatremia; T82.49XA Other complication of vascular dialysis catheter, initial encounter; N25.0 Renal osteodystrophy; F41.0 Panic disorder [episodic paroxysmal anxiety]; R22.31 Localized swelling, mass and lump, right upper limb; E55.9 Vitamin D deficiency, unspecified; R33.9 Retention of urine, unspecified; D50.9 Iron deficiency anemia, unspecified; E88.09 Other disorders of plasma-protein metabolism, not elsewhere classified; I42.9 Cardiomyopathy, unspecified; Z89.512 Acquired absence of left leg below knee; Z90.49 Acquired absence of other specified parts of digestive tract; Z91.148 Patient's other noncompliance with medication regimen for other reason; Z91.199 Patient's noncompliance with other medical treatment and regimen due to unspecified reason
CPT/HCPCS: 36415; 50200; 71045; 73700; 76770; 76942; 77001; 77012; 78452; 80053; 80069; 81001; 82306; 82550; 82570; 82607; 82728; 82746; 82784; 82948; 83540; 83550; 83735; 83970; 84100; 84155; 84156; 84165; 84300; 84439; 84480; 84540; 85025; 85610; 85652; 85730; 85999; 86037; 86038; 86140; 86225; 86334; 86335; 86364; 86704; 86706; 86850; 86900; 86901; 87340; 88300; 88305; 88313; 88329; 88346; 88348; 88350; 93017; 93306; 93971; 96374; 96375; 96376; 97110; 97116; 97162; 97530; J0690; A9270; A9502; C1750; C8929; G0257; G0378; G0379; J1100; J1171; J1644; J1756; J1815; J1938; J1939; J2003; J2004; J2250; J2270; J2371; J2405; J2704; J2785; J2997; J3010; J3373; J7030; J7040; J7050; P9047; Q5105; Q9957